=== PATIENT | female | born 1960 | race Caucasian/White ===

== ENCOUNTER → 2016-07-04 | Outpatient (CLI) | payer MEDICARE ==
[2016-07-04 20:58] LABS: INR 2.1 (<1.1); Prothrombin Time 20.4 sec (9.0-12.0)
[2016-07-05 01:40] LABS: Hemoglobin A1C 6.5 % (4.2-6.1)
== END | disposition home or self-care (01) ==
LOC: MMGSC 10:05
PROVIDERS: ATTEND Family Medicine
DX: E11.9 Type 2 diabetes mellitus without complications (principal); E87.6 Hypokalemia; Z79.01 Long term (current) use of anticoagulants
CPT/HCPCS: 36415; 83036; 84132; 85610

== ENCOUNTER → 2016-07-17 | Outpatient (CLI) | payer MEDICARE ==
[2016-07-17 18:36] LABS: INR 1.1 (<1.1); Prothrombin Time 11.1 sec (9.0-12.0)
== END | disposition home or self-care (01) ==
LOC: MMGSC 14:06
PROVIDERS: ATTEND Family Medicine
DX: Z79.01 Long term (current) use of anticoagulants (principal); Z51.81 Encounter for therapeutic drug level monitoring
CPT/HCPCS: 36415; 85610

== ENCOUNTER → 2016-08-02 | Outpatient (CLI) | payer MEDICARE ==
[2016-08-02 20:06] LABS: INR 1.3 (<1.1); Prothrombin Time 13.1 sec (9.0-12.0)
== END ==
LOC: MMGSC 10:34
PROVIDERS: ATTEND Family Medicine
DX: Z51.81 Encounter for therapeutic drug level monitoring (principal); Z79.01 Long term (current) use of anticoagulants
CPT/HCPCS: 36415; 85610

== ENCOUNTER → 2016-08-08 | Outpatient (CLI) | payer MEDICARE ==
[2016-08-08 20:49] LABS: INR 1.6 (<1.1); Prothrombin Time 15.1 sec (9.0-12.0)
== END | disposition home or self-care (01) ==
LOC: MMGSC 11:05
PROVIDERS: ATTEND Family Medicine
DX: Z79.01 Long term (current) use of anticoagulants (principal); Z51.81 Encounter for therapeutic drug level monitoring
CPT/HCPCS: 36415; 85610

== ENCOUNTER → 2016-08-15 | Outpatient (CLI) | payer MEDICARE ==
--- NOTE | 2016-08-21 08:33 | MM ---
Reason for exam: clinical finding. Last mammogram was performed 1 year and 9 months ago. History: Patient is postmenopausal. Lumpectomy of the right breast, 2016. Radiation therapy, 2016. Taking antineoplastic for 6 months. Indicated problem(s): pain in both breasts. Physical Findings: Nurse did not find any significant physical abnormalities on exam. MG 3D Diag Mammo W/Cad JAYESH Bilateral CC and MLO view(s) were taken. Prior study comparison: November 17, 2014, mammogram, performed at [facility]. There are scattered fibroglandular densities. New tiny oil cyst in the right breast at 2 o'clock. New tight group of calcifications 9-10 o'clock in the left breast warrant further evaluation. These results were verbally communicated with the patient on 08/21/16. ASSESSMENT: Incomplete: need additional imaging evaluation, BI-RAD 0 RECOMMENDATION: Special view mammogram of the left breast.
== END | disposition home or self-care (01) ==
LOC: RADMAMWWP 13:05
PROVIDERS: ATTEND Family Medicine
DX: N64.4 Mastodynia (principal); R92.2 Inconclusive mammogram
CPT/HCPCS: G0204; G0279

== ENCOUNTER 2016-08-17 16:52 | Inpatient (IN) | payer MEDICARE ==
[2016-08-17] MEDS ORDERED: SODIUM CHLORIDE 0.9% 1,000 ML IV STA (17:22)
[2016-08-17] MEDS ORDERED: ASPIRIN 81 MG CHEW PO STA (17:22)
[2016-08-17] MEDS ORDERED: MORPHINE SULFATE 4 MG/ML SYRINGE IV STA (17:22)
[2016-08-17] MEDS ORDERED: NITROGLYCERIN OINT 1 INCH/GM PACKET TOPICAL STA (17:22)
[2016-08-17] MEDS ORDERED: RX INFO: IV CONTRAST WAS GIVEN 1 EACH MISC MISCELLANE PRN (17:23)
[2016-08-17] MEDS ORDERED: LABETALOL 5 MG/ML VIAL MDV IVP STA (17:24)
[2016-08-17 17:38] LABS: Basophils % (A) 0 %; CH 31.1; CHCM 34.1; Eosinophils # (A) 0.1 k/uL (0-0.7); Eosinophils % (A) 2 %; HDW 2.85; HGB 14.4 gm/dL (11.4-16.0); Luc # (Auto) 0.06; Luc % (Auto) 1; Lymphocytes # (A) 0.4 k/uL (1.0-4.8); Lymphocytes % (A) 9 %; MCH 30.7 pg (25.0-35.0); MCHC 33.5 g/dL (31.0-37.0); MCV 91.6 fL (80.0-100.0); Mean Platelet Volume 6.5; Monocytes # (A) 0.3 k/uL (0-1.0); Monocytes % (A) 7 %; Neutrophils % (A) 81 %; RBC 4.69 m/uL (3.80-5.40); RDW 13.8 % (11.5-15.5)
[2016-08-17 17:52] LABS: ALT 80 U/L (9-52); AST 138 U/L (14-36); Alkaline Phosphatase 135 U/L (38-126); Anion Gap 7 mmol/L; Blood Urea Nitrogen 14 mg/dL (7-17); Calcium 9.5 mg/dL (8.4-10.2); Carbon Dioxide 27 mmol/L (22-30); Chloride 105 mmol/L (98-107); Glucose 118 mg/dL (74-99); Magnesium 1.8 mg/dL (1.6-2.3); Non-African American GFR(MDRD) >60 (>60 ml/min/1.73 sqM); Potassium 4.1 mmol/L (3.5-5.1); Sodium 139 mmol/L (137-145); Total Bilirubin 1.3 mg/dL (0.2-1.3); Total Protein 6.8 g/dL (6.3-8.2)
[2016-08-17 17:54] LABS: INR 1.9 (<1.1); Partial Thromboplastin Time 24.3 sec (22.0-30.0); Prothrombin Time 18.6 sec (9.0-12.0)
[2016-08-17 18:01] LABS: Creatine Kinase 191 U/L (30-135)
[2016-08-17 18:14] LABS: Creatine Kinase MB 2.1 ng/mL (0.0-2.4); Troponin I <0.012 ng/mL (0.000-0.034)
--- NOTE | 2016-08-17 18:33 | CT ---
EXAMINATION TYPE: CT angio chest DATE OF EXAM: 08/17/2016 6:26 PM COMPARISON: 02/10/2016 HISTORY: Pt states of chest pain and RENTERIA x2 days. CT DLP: 601.9 mGycm Automated exposure control for dose reduction was used. CONTRAST: CTA scan of the thorax is performed with IV Contrast, patient injected with 75 mL of Omnipaque 350, p ulmonary embolism protocol. There are 3-D post processed images.. FINDINGS: The lungs are clear of consolidation. There is no evidence of a pulmonary mass. There is no pleural e ffusion. There is no pericardial effusion. Heart appears enlarged. I see no filling defects in the pulmonary a rteries. There are no hilar masses. There is no mediastinal adenopathy. There is no evidence of aorti c aneurysm or dissection. IMPRESSION: NO EVIDENCE OF PULMONARY EMBOLISM. THERE IS CLEARING OF LEFT PLEURAL EFFUSION COMPARED TO LAST EXAM. CARDIOMEGALY.
[2016-08-17] MEDS ORDERED: HYDROmorphone 1 MG/ML 1 ML SYRINGE IVP STA (19:48)
--- NOTE | 2016-08-17 19:48 | ED ---
Chest Pain HPI - General Chief Complaint: Chest Pain Stated Complaint: Chest pain Time Seen by Provider: 08/17/16 17:14 Source: patient Mode of arrival: wheelchair Limitations: no limitations - History of Present Illness Initial Comments: This 55-year-old white female presents complaining of some chest pain. She describes as a bilateral chest pressure. The onset occurred approximately one week ago but it was worse since last night. It radiates down the left arm. There is a pleuritic component. She states that it seems to radiate to her head. She has had some shortness of breath but denies any cough or fever. It usually lasts several seconds to several minutes. She denies any leg pain or swelling. She does have a history of previous DVT and has factors 5 Leiden deficiency. She currently takes Coumadin for this. She does relate a headache for the last 3 weeks. She does have a history of pleurisy diagnosed in January 2016 and is probably has been intermittent. She denies any known history of coronary artery disease. She's never had a cardiac stent. She is unsure of her last stress test but it was remote. She does relate a history of liver cirrhosis but does not drink any alcohol and she is unsure why she has cirrhosis. No other complaints or modifying factors. - Related Data Home Medications Medication Instructions Recorded Confirmed Sertraline [Zoloft] 200 mg PO HS 03/07/15 08/17/16 Atorvastatin [Lipitor] 40 mg PO HS 02/10/16 08/17/16 Cranberry Extract [Cranberry] 500 mg PO DAILY PRN 02/10/16 08/17/16 HYDROcodone/APAP 7.5-325MG [[place] 1 tab PO QID PRN 02/10/16 08/17/16 7.5-325] Lisinopril 10 mg PO DAILY 02/10/16 08/17/16 Warfarin Sodium 9 mg PO DAILY@1800 02/10/16 08/17/16 Glimepiride [Amaryl] 2 mg PO BID 08/17/16 08/17/16 Levothyroxine Sodium [Synthroid] 137 mcg PO DAILY 08/17/16 08/17/16 Multivitamins, Thera [Multivitamin 1 tab PO DAILY 08/17/16 08/17/16 (formulary)] Phentermine HCl [Adipex-P] 37.5 mg PO QAM 08/17/16 08/17/16 Vitamin C/Biotin [Hair, Skin and 1 tab PO DAILY 08/17/16 08/17/16 Nails] Allergies Allergy/AdvReac Type Severity Reaction Status Date / Time No Known Allergies Allergy Verified 08/17/16 18:29 Review of Systems ROS Statement: Those systems with pertinent positive or pertinent negative responses have been documented in the HPI. ROS Other: All systems not noted in ROS Statement are negative. Past Medical History Past Medical History: Chest Pain / Angina, Diabetes Mellitus, Deep Vein Thrombosis (DVT), Hyperlipidemia, Hypertension, Sleep Apnea/CPAP/BIPAP Additional Past Medical History / Comment(s): Obesity, LLE DVT on coumadine since November 13 2015, varicose veins, hx cellulitis left leg, Left Lower extremity vascular intervention ? stent insertion/thrombolytics, hypertension, hyperlipidemia, DM and Factor V leiden (homozygous), hypothyroidism (post thyroidectomy for a massive goiter). History of Any Multi-Drug Resistant Organisms: None Reported Past Surgical History: Adenoidectomy, Appendectomy, Back Surgery, Cholecystectomy, Hysterectomy, Orthopedic Surgery, Tonsillectomy Additional Past Surgical History / Comment(s): carpal tunnel bilateral, thyroidectomy, ORIF rt ankle, stents in LLE/vascular stent Past Anesthesia/Blood Transfusion Reactions: Postoperative Nausea & Vomiting ( PONV) Additional Past Anesthesia/Blood Transfusion Reaction / Comment(s): blood transfusion(December 2015) Past Psychological History: Depression Smoking Status: Never smoker Past Alcohol Use History: Rare Past Drug Use History: None Reported - Past Family History Mother Family Medical History: Renal Disease (Mother at age of 59 from acute renal failure and she had a stroke) Father Family Medical History: Diabetes Mellitus (Father at age 71 from the hypertension diabetes and he had broken heart syndrome), Hypertension Brother(s) Family Medical History: Cancer Sister(s) Family Medical History: Diabetes Mellitus (Patient has 3 sisters 2 of them diabetic) Son(s) Family Medical History: No Reported History (Patient has 4 sons no major medical problems) Daughter(s) Family Medical History: Deep Vein Thrombosis (DVT) General Exam - General Exam Comments Initial Comments: GENERAL: The patient is well nourished and well hydrated. VITAL SIGNS: Heart rate, blood pressure, respiratory rate reviewed as recorded in nurse's notes. EYES: Pupils are round and reactive. Extraocular movements are intact. No conjunctival / lid redness or swelling. ENT: No external evidence of injury, swelling, or ecchymosis. Airway is patent. Throat is clear. NECK: Nontender. No swelling or evidence of injury. No subcutaneous emphysema. Trachea is midline. No thyroid mass. HEART: Regular rate and rhythm. Good peripheral pulses. LUNGS/CHEST: Breath sounds clear and equal bilaterally. No rales, rhonchi, or wheezes. No ecchymosis, subcutaneous emphysema, or tenderness. ABDOMEN: Abdomen soft without tenderness. No palpable masses or organomegaly. No peritoneal signs. No abdominal wall swelling or ecchymosis. EXTREMITIES: No extremity tenderness. Normal muscle tone and function. No thoracolumbar tenderness. NEUROLOGIC: Sensation is grossly intact. Cranial nerve exam reveals face is symmetrical, tongue is midline, speech is clear. SKIN: No abrasions or ecchymosis is noted. No induration or masses noted. PSYCHIATRIC: Alert and oriented. Appropriate behavior and judgment. Limitations: no limitations Course Vital Signs 08/17/16 08/17/16 08/17/16 16:55 17:43 18:00 Temperature 97.8 F Pulse Rate 90 93 Respiratory 20 14 Rate Blood Pressure 190/88 152/73 147/78 O2 Sat by Pulse 99 97 Oximetry Chest Pain [facility] The patient was seen and examined. All diagnostics were reviewed. EKG shows a normal sinus rhythm at a rate of 87. No acute ST-T wave changes are identified. The ID interval is 168, QS duration is 80, and QTC intervals 445. The patient had a computed tomography scan of the thorax which does not show any evidence of pulmonary embolism. It does show cardiomegaly and resolution of previous effusion. Her laboratory came back showing an INR at 1.9 and elevation of her liver function studies. Her d-dimer is negative. She receives aspirin nitroglycerin and morphine but states that morphine does not work well for her and is requesting additional pain medications but not morphine. The exact cause of her symptoms are not definitively determined. The possibility of acute coronary syndrome still is possible and it is felt as though she would require admission for further workup. Internal medicine has been paged and case will be discussed with them shortly. Disposition Clinical Impression: Chest pain, Diabetes, Dyspnea, Morbid obesity, Transaminitis, Cephalgia, Unstable angina pectoris Disposition: ADMITTED IP TO THIS HOSP Condition: Fair Time of Disposition: 19:52 Decision Date: 08/17/16 Decision Time: 19:52
[2016-08-17] MEDS ORDERED: NITROGLYCERIN SL TABS 0.4 MG TAB SUBLINGUAL PRN (19:54)
[2016-08-17] MEDS ORDERED: ACETAMINOPHEN TAB 325 MG TAB PO PRN (19:54)
[2016-08-17] MEDS ORDERED: NON-FORMULARY DRUG (Cranberry Extract [Cranberry] 500 MG) PO PRN (19:58)
[2016-08-17] MEDS ORDERED: ATORVASTATIN 40 MG TAB PO SCH (21:00)
[2016-08-17 21:27] VITALS: BMI 46.5
[2016-08-17] MEDS: ONDANSETRON 4 MG/2 ML VIAL IVP PRN (22:05)
[2016-08-17] MEDS: SERTRALINE 100 MG TAB PO SCH (22:07)
[2016-08-17] MEDS: GLIMEPIRIDE 2 MG TAB PO SCH (22:07)
[2016-08-17] MEDS: HYDROcodone/APAP 7.5-325MG 1 EACH TAB PO PRN (22:08)
[2016-08-17] MEDS: HYDROmorphone 1 MG/ML 1 ML SYRINGE IVP PRN (22:09)
[2016-08-17 23:40] LABS: Creatine Kinase 157 U/L (30-135)
[2016-08-17 23:53] LABS: Troponin I <0.012 ng/mL (0.000-0.034)
[2016-08-17] MEDS: NITROGLYCERIN OINT 1 INCH/GM PACKET TOPICAL SCH (23:58)
[2016-08-18] MEDS: HYDROmorphone 1 MG/ML 1 ML SYRINGE IVP PRN ×6 (03:08→23:40)
[2016-08-18] MEDS: NITROGLYCERIN OINT 1 INCH/GM PACKET TOPICAL SCH (05:32)
[2016-08-18] MEDS: LEVOTHYROXINE 137 MCG TAB PO SCH (05:33)
[2016-08-18] MEDS: HYDROcodone/APAP 7.5-325MG 1 EACH TAB PO PRN ×2 (05:34→20:38)
[2016-08-18] MEDS: ONDANSETRON 4 MG/2 ML VIAL IVP PRN ×3 (05:37→23:40)
[2016-08-18 06:14] LABS: Cholesterol 97 mg/dL (<200); HDL Cholesterol 66 mg/dL (40-60); Triglycerides 58 mg/dL (<150)
[2016-08-18 06:41] LABS: Creatine Kinase 157 U/L (30-135)
[2016-08-18 06:53] LABS: Troponin I <0.012 ng/mL (0.000-0.034)
[2016-08-18 07:03] LABS: Creatine Kinase MB 2.9 ng/mL (0.0-2.4)
[2016-08-18] MEDS ORDERED: NON-FORMULARY DRUG (Phentermine Hcl [Adipex-P] 37.5 MG) PO SCH (09:00)
[2016-08-18] MEDS ORDERED: NON-FORMULARY DRUG (Vitamin C/Biotin [Hair, Skin And Nails] 1 TAB) PO SCH (09:00)
[2016-08-18] MEDS ORDERED: SODIUM CHLORIDE 0.9% 1,000 ML IV SCH (10:00)
--- NOTE | 2016-08-18 10:51 | ECHOF ---
Referral Reason:cp MEASUREMENTS -------- HEIGHT: 165.1 cm WEIGHT: 126.6 kg BP: 122/72 RVIDd: 3.5 cm (< 3.3) IVSd: 1.0 cm (0.6 - 1.1) LVIDd: 5.7 cm (3.9 - 5.3) LVPWd: 0.8 cm (0.6 - 1.1) IVSs: 1.8 cm LVIDs: 3.3 cm LVPWs: 1.7 cm LA Diam: 3.6 cm (2.7 - 3.8) LAESV Index (A-L): 20.65 ml/m Ao Diam: 3.3 cm (2.0 - 3.7) AV Cusp: 2.1 cm (1.5 - 2.6) LA Diam: 2.8 cm (2.7 - 3.8) MV EXCURSION: 19.089 mm (> 18.000) MV EF SLOPE: 135 mm/s (70 - 150) EPSS: 0.4 cm MV E Joni: 0.87 m/s MV DecT: 218 ms MV A Joni: 1.05 m/s MV E/A Ratio: 0.83 RAP: 5.00 mmHg RVSP: 41.31 mmHg FINDINGS -------- Sinus rhythm. This was a technically good study. Left ventricular wall thickness is normal. Overall left ventricular systolic function is normal with, an EF between 55 - 60 %. The right ventricle is mildly enlarged. Normal LA size by volume 22+/-6 ml/m2. The right atrium is normal in size. Aortic valve is trileaflet and is mildly thickened. The mitral valve leaflets are mildly thickened. Mild mitral annular calcification present. There is trace to mild mitral regurgitation. Mild tricuspid regurgitation present. There is mild pulmonary hypertension. The right ventricular systolic pressure, as measured by Doppler, is 41.31mmHg. The aortic root size is normal. Normal inferior vena cava with normal inspiratory collapse consistent with estimated right atrial pressure of 5 mmHg. There is no pericardial effusion. CONCLUSIONS -------- 1. Sinus rhythm. 2. Mild mitral annular calcification present. 3. There is trace to mild mitral regurgitation. 4. Mild tricuspid regurgitation present. 5. There is mild pulmonary hypertension. 6. The right ventricular systolic pressure, as measured by Doppler, is 41.31mmHg. 7. The aortic root size is normal. 8. Normal inferior vena cava with normal inspiratory collapse consistent with estimated right atrial pressure of 5 mmHg. 9. There is no pericardial effusion. 10. This was a technically good study. 11. Left ventricular wall thickness is normal. 12. Overall left ventricular systolic function is normal with, an EF between 55 - 60 %. 13. The right ventricle is mildly enlarged. 14. Normal LA size by volume 22+/-6 ml/m2. 15. The right atrium is normal in size. 16. Aortic valve is trileaflet and is mildly thickened. 17. The mitral valve leaflets are mildly thickened. CHARITY FUNDRAISER: Alejandro Estrada RDCS
[2016-08-18] MEDS: ASPIRIN 325 MG TAB PO SCH (10:55)
[2016-08-18] MEDS: GLIMEPIRIDE 2 MG TAB PO SCH ×2 (10:55→17:26)
[2016-08-18] MEDS: LISINOPRIL 10 MG TAB PO SCH (10:55)
--- NOTE | 2016-08-18 11:39 | CONS ---
A 55-year-old lady with a known history of factor V Leiden, hypertension, hyperlipidemia, type 2 diabetes and also history of prior DVT and other surgeries. She has never smoked. She comes into the hospital with complaints of what she describes as a chest discomfort. The quality of pain is somewhat atypical. It started off at least 2 days ago. She had mostly what she described as a pain that gets worse when she takes a deep breath. Because of the pleuritic component, she also had a CAT scan done with contrast. There was no evidence of any pulmonary embolism. Her pain in the chest seems to have resolved almost completely and troponins are normal. However, she now has headache, which is a new problem and this seems to be more disturbing for her. Chest pain is pretty much gone, but she now seems to have more of a headache. Her blood pressure is under good control this morning. When she came in, systolic was 190, now it is 124/66. She is resting comfortably. Other than the headache, she seems to be doing just fine. She is hemodynamically stable and does not have any dizziness or lightheadedness. PAST MEDICAL HISTORY: 1. History of obesity. 2. Hypertension. 3. Hyperlipidemia. 4. Type 2 diabetes mellitus. 5. Sleep apnea syndrome, uses CPAP. 6. History of varicose veins in the past. 7. Cellulitis of the left leg, resolved. 8. Status post appendectomy, back surgery, cholecystectomy. 9. She has history of DVTs in the past and also some stents in her lower extremity. Details are unavailable. Medications at home include: 1. Lisinopril 10 mg daily. 2. Coumadin 9 mg daily with INR of 1.9. 3. Amaryl 2 mg b.i.d. 4. Levothyroxine 137 mcg daily. 5. Hydrocodone for pain. 6. Atorvastatin 40 mg daily and 7. Zoloft. ALLERGIES: No known drug allergies. On examination, blood pressure is 124/66, pulse rate is 70 per minute, regular. HEENT: Unremarkable. Fundus was not examined by me. Neck is supple. There is no JVD. I do not hear a carotid bruit. Heart reveals S1 and S2 heard normally without a rub, murmur or gallop. Lungs are clear. Abdomen is soft, nontender, distended. Lower extremities reveal diminished pulses. No edema. Central nervous system is normal. EKG revealed sinus mechanism. No acute changes. Laboratory data suggested normal troponins. No other significant abnormalities are noted on the laboratory data. INR is 1.9. IMPRESSION: 1. Atypical chest pain. 2. Headache of unclear etiology. 3. Obesity. 4. Type 2 diabetes mellitus. 5. History of factor V Leiden. The patient is on Coumadin. INR is 1.9. RECOMMENDATIONS: Troponin levels are normal. CT angiography was negative. I would have considered a stress test, but at this time she is complaining of headache and just feels, sick and we may be dealing with a flu-like illness. I am recommending some IV fluids. Will resume her oral intake, increase activity and see how she does. I will follow up with her as an outpatient and consider stress testing as an outpatient. At this time, no other intervention necessary. She had an echocardiogram that was performed as recently as January 2016 which revealed normal LV size and systolic function with mild concentric LVH and aortic sclerosis. There was no evidence of pulmonary hypertension. We will give some IV fluids and give some Dilaudid for headache and see how she does. Thank you very much for the consult.
[2016-08-18] MEDS: MULTIVITAMINS, THERA 1 EACH TAB PO SCH (11:42)
[2016-08-18 12:07] LABS: Glucose,Whole Blood 139 mg/dL (75-99)
[2016-08-18 12:32] LABS: Hemoglobin A1C 6.6 % (4.2-6.1)
[2016-08-18] MEDS: INSULIN LISPRO (humaLOG) 300 UNIT/3 ML VIAL SQ SCH ×3 (15:27→20:40)
--- NOTE | 2016-08-18 16:12 | P.HPIM ---
History of Present Illness H&P Date: 08/18/16 Chief Complaint: CHest pain This is a 55-year-old female one of Dr. Avila with a previous medical history significant for hypertension and hypertensive cardiovascular disease with left ventricular hypertrophy, hyperkalemia, diabetes mellitus type 2, osteoarthritis, obesity with obstructive sleep apnea, abdominal soft tissue skin abscess, left DVT and had 2 stents placed and bacteremia--treated at [facility] in4 November 2015 and started on Coumadin. Patient states that she was driving and developed chest pain in the midsternal area. She pulled off and ended up going to her daughter's house. She states it felt like something was sitting on her chest and she had sensation in her arms and fingers. Her daughter works at [employer] and convinced her to come into [facility] emergency center for evaluation. A Chin also relates that she has had decreased energy and feeling tired. She is complaining of a headache which she states started before the chest pain as all over her head on the right side most severely and goes to her neck. She states is not related to the nitroglycerin. She denies any arm or leg weakness. No dysphagia. She does states that when she ambulates she develops chest pain when she walks just from the bed to the bathroom. She does have tenderness over the midsternal area and also increased pain with deep inspiration. She states it feels like the pleurisy she had on her previous admission in January 2016. Echocardiogram from January 2016 revealed EF 55-60% with mild concentric left ventricular hypertrophy, mild aortic valve sclerosis without stenosis, mild mitral regurgitation, mild tricuspid regurgitation, mild pulmonary hypertension. Troponins have been negative on 3 draws. Triglycerides 58, cholesterol 97, LDL 19 and HDL 66. She does have elevated liver function tests of AST 138, ALT 80 and alkaline phosphatase 135 with no previous history of this. EKG does show Q waves. Patient was placed on the observation unit and seen by cardiology with recommendations for IV fluids and follow-up in 2-3 weeks for outpatient stress test. Patient has been given 2 doses of Dilaudid without improvement of her headache, ice pack is in place to her neck area and CAT scan of the brain, neurology consult ordered. Echocardiogram reveals EF of 55-60%, mild mitral regurgitation , mild tricuspid regurgitation, mild pulmonary hypertension. Review of Systems All systems: negative Constitutional: Reports fatigue, Reports weakness, Denies chills, Denies fever Eyes: denies blurred vision, denies pain Ears, nose, mouth and throat: Reports headache, Reports vertigo, Denies sore throat Cardiovascular: Reports chest pain, Denies shortness of breath, Denies syncope Respiratory: Denies cough Gastrointestinal: Denies abdominal pain, Denies diarrhea, Denies nausea, Denies vomiting Genitourinary: Denies dysuria, Denies hematuria Musculoskeletal: Denies myalgias Integumentary: Denies pruritus, Denies rash Neurological: Denies numbness, Denies weakness Psychiatric: Denies anxiety, Denies depression Endocrine: Denies fatigue, Denies weight change Past Medical History Past Medical History: Chest Pain / Angina, Diabetes Mellitus, Deep Vein Thrombosis (DVT), Hyperlipidemia, Hypertension, Sleep Apnea/CPAP/BIPAP Additional Past Medical History / Comment(s): Obesity, LLE DVT on coumadine since November 13 2015, varicose veins, hx cellulitis left leg, Left Lower extremity DVT with vascular intervention ? stent insertion/thrombolytics, hypertension, hyperlipidemia, DM and Factor V leiden (homozygous), hypothyroidism (post thyroidectomy for a massive goiter). History of Any Multi-Drug Resistant Organisms: None Reported Past Surgical History: Adenoidectomy, Appendectomy, Back Surgery, Cholecystectomy, Hysterectomy, Orthopedic Surgery, Tonsillectomy Additional Past Surgical History / Comment(s): carpal tunnel bilateral, thyroidectomy, ORIF rt ankle, stents in LLE/vascular stent Past Anesthesia/Blood Transfusion Reactions: Postoperative Nausea & Vomiting ( PONV) Additional Past Anesthesia/Blood Transfusion Reaction / Comment(s): blood transfusion(December 2015) Past Psychological History: Depression Smoking Status: Never smoker Past Alcohol Use History: None Reported, Rare Past Drug Use History: None Reported - Past Family History Mother Family Medical History: Renal Disease (Mother at age of 59 from acute renal failure and she had a stroke) Additional Family Medical History / Comment(s): Mother at age 59 from acute renal failure and she had a stroke. Father Family Medical History: Diabetes Mellitus (Father at age 71 from the hypertension diabetes and he had broken heart syndrome), Hypertension Additional Family Medical History / Comment(s): Father at age 71 from hypertension, diabetes and had a broken heart syndrome. Brother(s) Family Medical History: Cancer Sister(s) Family Medical History: Myocardial Infarction ([place]) Additional Family Medical History / Comment(s): Patient has 3 sisters and 2 of them are diabetic. Son(s) Family Medical History: No Reported History (Patient has 4 sons no major medical problems) Additional Family Medical History / Comment(s): Patient has 4 sons with no major medical problems. Daughter(s) Family Medical History: Deep Vein Thrombosis (DVT) Additional Family Medical History / Comment(s): Patient has a daughter with DVT. Medications and Allergies Home Medications Medication Instructions Recorded Confirmed Type Sertraline [Zoloft] 200 mg PO HS 03/07/15 08/17/16 History Atorvastatin [Lipitor] 40 mg PO HS 02/10/16 08/17/16 History Cranberry Extract [Cranberry] 500 mg PO DAILY PRN 02/10/16 08/17/16 History HYDROcodone/APAP 7.5-325MG [[place] 1 tab PO QID PRN 02/10/16 08/17/16 History 7.5-325] Lisinopril 10 mg PO DAILY 02/10/16 08/17/16 History Warfarin Sodium 9 mg PO DAILY@1800 02/10/16 08/17/16 History Glimepiride [Amaryl] 2 mg PO BID 08/17/16 08/17/16 History Levothyroxine Sodium [Synthroid] 137 mcg PO DAILY 08/17/16 08/17/16 History Multivitamins, Thera [Multivitamin 1 tab PO DAILY 08/17/16 08/17/16 History (formulary)] Vitamin C/Biotin [Hair, Skin and 1 tab PO DAILY 08/17/16 08/17/16 History Nails] Allergies Allergy/AdvReac Type Severity Reaction Status Date / Time No Known Allergies Allergy Verified 08/17/16 21:19 Physical Exam Vitals: Vital Signs Temp Pulse Pulse Pulse Resp BP BP 08/18/16 08:00 98.0 F 86 18 124/66 08/18/16 04:00 97.8 F 79 16 122/72 08/17/16 23:43 97.8 F 95 16 147/67 08/17/16 23:11 16 08/17/16 22:00 16 08/17/16 20:45 98.6 F 97 16 172/70 08/17/16 20:33 86 18 126/68 Pulse Ox 08/18/16 08:00 97 08/18/16 04:00 96 08/17/16 23:43 95 08/17/16 23:11 08/17/16 22:00 08/17/16 20:45 100 08/17/16 20:33 97 Intake and Output 08/17/16 08/18/16 08/18/16 22:59 06:59 14:59 Other: # Voids 1 1 Weight 127 kg Gen: This is a morbidly obese. 55-year-old female. She is sitting up in bed and appears to be in no acute respiratory distress. HEENT: Head is atraumatic, normocephalic. Pupils equal, round. Sclerae is anicteric. NECK: Supple. No JVD. No lymphadenopathy. No thyromegaly. LUNGS: Diminished bilaterally more so on the left. No wheezes or rhonchi. No intercostal retractions. HEART: Regular rate and rhythm. No murmur. Tenderness to the midsternal area. ABDOMEN: Morbidly obese. Soft. Bowel sounds are present. No masses. No tenderness. EXTREMITIES: No pedal edema. No calf tenderness. NEUROLOGICAL: Patient is awake, alert and oriented x3. Cranial nerves 2 through 12 are grossly intact. Results CBC & Chem 7: 08/17/16 17:22 08/17/16 17:22 Labs: Abnormal Lab Results - Last 24 Hours (Table) 08/17/16 08/18/16 08/18/16 Range/Units 22:52 05:16 05:16 Total Creatine Kinase 157 H 157 H (30-135) U/L CK-MB (CK-2) 2.9 H* (0.0-2.4) ng/mL HDL Cholesterol 66 H (40-60) mg/dL Thrombosis Risk Factor Assmnt - DVT/VTE Prophylaxis DVT/VTE Prophylaxis: Pharmacologic Prophylaxis ordered - Choose All That Apply Each Factor Represents 1 point: Age 41-60 years Each Risk Factor Represents 3 Points: History of DVT/PE Thrombosis Risk Factor Assessment Total Risk Factor Score: 4 Thrombosis Risk Factor Assessment Level: Moderate Risk Assessment and Plan Plan: 1. Chest pain with chest wall tenderness possibly related to pleurisy. Patient has been seen by cardiology with plan for outpatient stress test in 2-3 weeks. 2. Headache with radiation down the back of her head to her neck. CAT scan of the brain and consult with neurology. 3. Diabetes mellitus type 2. Continue glimepiride 2 mg twice daily and Humalog scale before meals and at bedtime. 3. Hypertension and hypertensive cardio vascular disease. Continue lisinopril 10 mg daily. 4. History of lower extremity DVT and had stent placement at [facility] with factor V deficiency currently on Coumadin. Continue Coumadin to maintain INR between 2 and 3. Recheck INR in the morning. 5. Hyperlipidemia. Continue Lipitor 40 mg at bedtime 6. Obesity with obstructive sleep apnea. Continue CPAP. 7. Depression recurrent. Continue Zoloft 200 mg at bedtime. 8. Overactive bladder. Continue oxybutynin 5 mg daily. 9. DVT prophylaxis. Patient is therapeutic on Coumadin. 10. Gastrointestinal prophylaxis. Continue Pepcid. 11. History of bacteremia while hospitalized at [facility] 2016. Patient placed on the observation unit. Discharge plan: Return home Impression and plan of care have been directed as dictated by the signing physician. Lou Orellana nurse practitioner acting as scribe for signing physician. CC: Dr. Jasso Time with Patient: Greater than 30
[2016-08-18] MEDS: SODIUM CHLORIDE 0.9% 1,000 ML IV SCH (16:15)
--- NOTE | 2016-08-18 16:55 | CT ---
EXAMINATION TYPE: CT brain wo con DATE OF EXAM: 08/18/2016 4:49 PM COMPARISON: NONE HISTORY: Headache, dizziness and nausea x [address] DLP: 1165.00 mGycm Automated exposure control for dose reduction was used. FINDINGS: Central structures are midline. There is no evidence of hydrocephalus. No acute focal lesion, mass ef fect or midline shift is seen. I do not see evidence of intracranial blood. Visualized portions of the paranasal sinuses and mastoids are clear. No depressed skull fracture is s een. IMPRESSION: NO ACUTE INTRACRANIAL ABNORMALITY.
[2016-08-18 17:06] LABS: Glucose,Whole Blood 106 mg/dL (75-99)
[2016-08-18] MEDS: WARFARIN 3 MG TAB PO SCH ×2 (17:25→20:39)
[2016-08-18 20:39] LABS: Glucose,Whole Blood 65 mg/dL (75-99)
[2016-08-18] MEDS: SERTRALINE 100 MG TAB PO SCH (20:40)
[2016-08-19] MEDS: HYDROmorphone 1 MG/ML 1 ML SYRINGE IVP PRN ×4 (02:31→20:29)
[2016-08-19] MEDS: ONDANSETRON 4 MG/2 ML VIAL IVP PRN (05:42)
[2016-08-19] MEDS: SODIUM CHLORIDE 0.9% 1,000 ML IV SCH (05:42)
[2016-08-19] MEDS: LEVOTHYROXINE 137 MCG TAB PO SCH (05:43)
[2016-08-19 06:42] LABS: Glucose,Whole Blood 119 mg/dL (75-99)
[2016-08-19] MEDS: ASPIRIN 325 MG TAB PO SCH (09:56)
[2016-08-19] MEDS: LISINOPRIL 10 MG TAB PO SCH (09:56)
[2016-08-19] MEDS: INSULIN LISPRO (humaLOG) 300 UNIT/3 ML VIAL SQ SCH ×4 (09:56→20:31)
[2016-08-19] MEDS: MULTIVITAMINS, THERA 1 EACH TAB PO SCH (09:56)
[2016-08-19] MEDS: GLIMEPIRIDE 2 MG TAB PO SCH ×2 (09:57→17:28)
[2016-08-19] MEDS ORDERED: GLIMEPIRIDE 1 MG TAB PO STA (11:02)
[2016-08-19 11:58] LABS: Glucose,Whole Blood 149 mg/dL (75-99)
[2016-08-19] MEDS: traMADol 50 MG TAB PO PRN (12:21)
[2016-08-19] MEDS: predniSONE 50 MG TAB PO SCH (12:24)
--- NOTE | 2016-08-19 13:34 | P.PN ---
Subjective This is a 55-year-old female one of Dr. Avila with a previous medical history significant for hypertension and hypertensive cardiovascular disease with left ventricular hypertrophy, hyperkalemia, diabetes mellitus type 2, osteoarthritis, obesity with obstructive sleep apnea, abdominal soft tissue skin abscess, left DVT and had 2 stents placed and bacteremia--treated at [facility] in4 November 2015 and started on Coumadin. Patient states that she was driving and developed chest pain in the midsternal area. She pulled off and ended up going to her daughter's house. She states it felt like something was sitting on her chest and she had sensation in her arms and fingers. Her daughter works at [employer] and convinced her to come into [facility] emergency center for evaluation. A Chin also relates that she has had decreased energy and feeling tired. She is complaining of a headache which she states started before the chest pain as all over her head on the right side most severely and goes to her neck. She states is not related to the nitroglycerin. She denies any arm or leg weakness. No dysphagia. She does states that when she ambulates she develops chest pain when she walks just from the bed to the bathroom. She does have tenderness over the midsternal area and also increased pain with deep inspiration. She states it feels like the pleurisy she had on her previous admission in January 2016. Echocardiogram from January 2016 revealed EF 55-60% with mild concentric left ventricular hypertrophy, mild aortic valve sclerosis without stenosis, mild mitral regurgitation, mild tricuspid regurgitation, mild pulmonary hypertension. Troponins have been negative on 3 draws. Triglycerides 58, cholesterol 97, LDL 19 and HDL 66. She does have elevated liver function tests of AST 138, ALT 80 and alkaline phosphatase 135 with no previous history of this. EKG does show Q waves. Patient was placed on the observation unit and seen by cardiology with recommendations for IV fluids and follow-up in 2-3 weeks for outpatient stress test. Patient has been given 2 doses of Dilaudid without improvement of her headache, ice pack is in place to her neck area and CAT scan of the brain, neurology consult ordered. Echocardiogram reveals EF of 55-60%, mild mitral regurgitation , mild tricuspid regurgitation, mild pulmonary hypertension. 08/19: Patient continues to complain of a throbbing headache on the right side of her head from the top and goes around the back and down her neck. She also complains of nausea and vomiting and blurred vision. She denies any history of migraine headaches. Patient is tender in the occipital region. Patient started on prednisone and glyburide has been increased. Consult with neurology is pending. CAT scan of the brain showed no acute findings. Objective - Vital Signs Vital signs: Vital Signs Temp 97.6 F 08/19/16 07:42 Pulse 78 08/19/16 07:42 Resp 16 08/19/16 07:42 BP 161/79 08/19/16 07:42 Pulse Ox 93 L 08/19/16 07:42 Intake & Output 08/18/16 08/19/16 08/19/16 18:59 06:59 18:59 Intake Total 540 236 Balance 540 236 Intake: Oral 540 236 Other: Voiding Method Toilet Toilet # Voids 1 - Exam Gen: This is a morbidly obese. 55-year-old female. She is sitting up in bed and appears to be in no acute respiratory distress. HEENT: Head is atraumatic, normocephalic. Pupils equal, round. Sclerae is anicteric. NECK: Supple. No JVD. No lymphadenopathy. No thyromegaly. LUNGS: Diminished bilaterally more so on the left. No wheezes or rhonchi. No intercostal retractions. HEART: Regular rate and rhythm. No murmur. Tenderness to the midsternal area. ABDOMEN: Morbidly obese. Soft. Bowel sounds are present. No masses. No tenderness. EXTREMITIES: No pedal edema. No calf tenderness. NEUROLOGICAL: Patient is awake, alert and oriented x3. Cranial nerves 2 through 12 are grossly intact. - Labs CBC & Chem 7: 08/17/16 17:22 08/17/16 17:22 Labs: Abnormal Lab Results - Last 24 Hours (Table) 08/18/16 08/18/16 08/18/16 Range/Units 05:16 12:05 17:02 POC Glucose (mg/dL) 139 H 106 H (75-99) mg/dL Hemoglobin A1c 6.6 H (4.2-6.1) % 08/18/16 08/19/16 Range/Units 20:38 06:39 POC Glucose (mg/dL) 65 L 119 H (75-99) mg/dL Hemoglobin A1c (4.2-6.1) % Assessment and Plan Plan: 1. Chest pain with chest wall tenderness possibly related to pleurisy. Patient has been seen by cardiology with plan for outpatient stress test in 2-3 weeks. 2. Headache with radiation down the back of her head to her neck most likely due to occipital neuralgia. CAT scan of the brain and consult with neurology. 3. Diabetes mellitus type 2. Continue glimepiride 2 mg twice daily and Humalog scale before meals and at bedtime. 3. Hypertension and hypertensive cardio vascular disease. Continue lisinopril 10 mg daily. 4. 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 Continue Coumadin to maintain INR between 2 and 3. Recheck INR in the morning. 5. Hyperlipidemia. Continue Lipitor 40 mg at bedtime 6. Obesity with obstructive sleep apnea. Continue CPAP. 7. Depression recurrent. Continue Zoloft 200 mg at bedtime. 8. Overactive bladder. Continue oxybutynin 5 mg daily. 9. DVT prophylaxis. Patient is therapeutic on Coumadin. 10. Gastrointestinal prophylaxis. Continue Pepcid. 11. History of bacteremia while hospitalized at [facility] 2016. Patient placed on the observation unit. Discharge plan: Return home Impression and plan of care have been directed as dictated by the signing physician. Lou Orellana nurse practitioner acting as scribe for signing physician. Time with Patient: Greater than 30
[2016-08-19 16:56] LABS: Glucose,Whole Blood 219 mg/dL (75-99)
[2016-08-19] MEDS: WARFARIN 3 MG TAB PO SCH (17:27)
--- NOTE | 2016-08-19 20:17 | P.CNNES ---
History of Present Illness Consult date: 08/19/16 Reason for Consult: Patient with headaches for the past 2 weeks and chest pain. 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 She went to visit her daughter who works at [employer] and apparently she complained of severe retrosternal chest pain and severe headache pain. His was about 1 PM yesterday evening. The daughter recommended she call EMS but the patient refused. Instead the patient decided to have her daughter take her to the emergency room which she did yesterday. She was brought into the ER on 08/17/2016 for further evaluation. She was seen in the ER by Dr. Delgadillo. She continued to have severe retrosternal chest pain. She also complained of left arm discomfort and there was concern whether she may have underlying coronary artery disease. Patient also complained of headaches for about 2 weeks but definitely worse in the last few days. Patient does have a history of clotting disorder. 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 She is currently taking Coumadin for treatment. She also has a history of pleurisy in the past which was diagnosed in January 2016. Patient states her chest pain seemed to be very similar to when she had pleurisy. She also has a 2 stents placed in the left leg for which she was treated at [facility]. Apparently she has been taking Coumadin and does have her INR checked weekly by her primary care physician. She is on 9 mg of Coumadin daily. The patient was sent for a computed tomography scan of the brain yesterday due to the headache symptoms. CAT scan is reported negative for any acute changes. No evidence of any hemorrhage. She states that most of her headache pain seems to emanate from the base of the neck and radiates down the neck and up into her temporal areas bilaterally. She does have a history of having undergone cervical spine fusion surgery in [place] in 2003. She has not had any recent difficulty with her neck other than some difficulty sleeping at night. She also has a history of obstructive sleep apnea for which she uses CPAP at night. The patient states that her headache is currently quite sharp in nature and mostly radiating from the back of the neck. She denies having any evidence of arthritis in the neck following her surgery in 2003. On examination the patient is noted to have significant trigger point tenderness in the suboccipital notch bilaterally. She rates the pain intensity is 10 over 10. She has not had any severe nausea vomiting symptoms. She has been taking Dilaudid for headache pain. Patient's clinical findings are very consistent with severe occipital neuritis. We recommend that she be evaluated by anesthesia for possible occipital nerve block procedure. We would also recommend a plain computed tomography scan of the neck for further evaluation as this has not been done previously. Patient has been seen by cardiology. She atypical chest pain. Her troponin levels are normal. CT angiogram was negative. She is recommended to consider having a stress test done in the outpatient setting. Neurology is now been consulted for further evaluation and recommendations. Review of Systems Constitutional: Denies chills, Denies fever Eyes: denies blurred vision, denies pain Ears, nose, mouth and throat: Denies headache, Denies sore throat Cardiovascular: Denies chest pain, Denies shortness of breath Respiratory: Denies cough Gastrointestinal: Denies abdominal pain, Denies diarrhea, Denies nausea, Denies vomiting Genitourinary: Denies dysuria, Denies hematuria Musculoskeletal: Denies myalgias Integumentary: Denies pruritus, Denies rash Neurological: Reports headaches, Reports tingling, Denies numbness, Denies weakness Psychiatric: Denies anxiety, Denies depression Endocrine: Denies fatigue, Denies weight change Past Medical History Past Medical History: Chest Pain / Angina, Diabetes Mellitus, Deep Vein Thrombosis (DVT), Hyperlipidemia, Hypertension, Sleep Apnea/CPAP/BIPAP Additional Past Medical History / Comment(s): Obesity, LLE DVT on coumadine since November 13 2015, varicose veins, hx cellulitis left leg, Left Lower extremity DVT with vascular intervention ? stent insertion/thrombolytics, hypertension, hyperlipidemia, DM and Factor V leiden (homozygous), hypothyroidism (post thyroidectomy for a massive goiter). History of Any Multi-Drug Resistant Organisms: None Reported Past Surgical History: Adenoidectomy, Appendectomy, Back Surgery, Cholecystectomy, Hysterectomy, Orthopedic Surgery, Tonsillectomy Additional Past Surgical History / Comment(s): carpal tunnel bilateral, thyroidectomy, ORIF rt ankle, stents in LLE/vascular stent Past Anesthesia/Blood Transfusion Reactions: Postoperative Nausea & Vomiting ( PONV) Additional Past Anesthesia/Blood Transfusion Reaction / Comment(s): blood transfusion(December 2015) Past Psychological History: Depression Smoking Status: Never smoker Past Alcohol Use History: None Reported, Rare Past Drug Use History: None Reported - Past Family History Mother Family Medical History: Renal Disease (Mother at age of 59 from acute renal failure and she had a stroke) Additional Family Medical History / Comment(s): Mother at age 59 from acute renal failure and she had a stroke. Father Family Medical History: Diabetes Mellitus (Father at age 71 from the hypertension diabetes and he had broken heart syndrome), Hypertension Additional Family Medical History / Comment(s): Father at age 71 from hypertension, diabetes and had a broken heart syndrome. Brother(s) Family Medical History: Cancer Sister(s) Family Medical History: Myocardial Infarction ([place]) Additional Family Medical History / Comment(s): Patient has 3 sisters and 2 of them are diabetic. Son(s) Family Medical History: No Reported History (Patient has 4 sons no major medical problems) Additional Family Medical History / Comment(s): Patient has 4 sons with no major medical problems. Daughter(s) Family Medical History: Deep Vein Thrombosis (DVT) Additional Family Medical History / Comment(s): Patient has a daughter with DVT. Medications and Allergies Home Medications Medication Instructions Recorded Confirmed Type Sertraline [Zoloft] 200 mg PO HS 03/07/15 08/17/16 History Atorvastatin [Lipitor] 40 mg PO HS 02/10/16 08/17/16 History Cranberry Extract [Cranberry] 500 mg PO DAILY PRN 02/10/16 08/17/16 History HYDROcodone/APAP 7.5-325MG [Rincon 1 tab PO QID PRN 02/10/16 08/17/16 History 7.5-325] Lisinopril 10 mg PO DAILY 02/10/16 08/17/16 History Warfarin Sodium 9 mg PO DAILY@1800 02/10/16 08/17/16 History Glimepiride [Amaryl] 2 mg PO BID 08/17/16 08/17/16 History Levothyroxine Sodium [Synthroid] 137 mcg PO DAILY 08/17/16 08/17/16 History Multivitamins, Thera [Multivitamin 1 tab PO DAILY 08/17/16 08/17/16 History (formulary)] Vitamin C/Biotin [Hair, Skin and 1 tab PO DAILY 08/17/16 08/17/16 History Nails] Allergies Allergy/AdvReac Type Severity Reaction Status Date / Time No Known Allergies Allergy Verified 08/17/16 21:19 Physical Examination - Vital Signs Vital Signs: Vital Signs Temp Pulse Resp BP BP Pulse Ox 08/19/16 11:46 98 F 72 16 124/60 94 L 08/19/16 07:42 97.6 F 78 16 161/79 93 L 08/19/16 04:00 98 F 79 16 118/64 94 L 08/19/16 00:00 97.8 F 85 16 113/58 92 L 08/18/16 20:00 16 08/18/16 19:32 98.2 F 94 16 169/78 94 L 08/18/16 16:00 98.3 F 91 16 140/65 96 Intake and Output 08/18/16 08/19/16 08/19/16 22:59 06:59 14:59 Intake Total 236 Balance 236 Intake: Oral 236 Other: Voiding Method Toilet Toilet Toilet # Voids 1 1 - Constitutional General appearance: average body habitus, cooperative - EENT EENT: PERRL, mucous membranes moist - Respiratory Respiratory: lungs clear, normal breath sounds - Cardiovascular Cardiovascular: regular rate, normal S1, normal S2 Extremities: no peripheral edema bilaterally - Gastrointestinal Gastrointestinal: normoactive bowel sounds - Integumentary Integumentary: normal - Neurologic Cranial nerve examination: PERRL, EOMI, VFF, V1/V2/V3 grossly intact, face symmetric, tongue midline, intact gag reflex, intact corneal reflex, normal palatal elevation Speech examination: intact Sensorimotor examination: intact Detailed motor examination: grossly full strength in all extremities Detailed sensory examination: intact Reflex and gait examination: intact Reflexes: 1+: ankle, bicep, knee, tricep - Musculoskeletal Musculoskeletal: no pain - Psychiatric Psychiatric: mood/affect appropriate, cooperative Results - Laboratory Findings CBC and BMP: 08/17/16 17:22 08/17/16 17:22 Abnormal Lab Findings: Abnormal Labs 08/17/16 08/18/16 08/18/16 22:52 05:16 05:16 POC Glucose (mg/dL) Hemoglobin A1c Total Creatine Kinase 157 H 157 H CK-MB (CK-2) 2.9 H* HDL Cholesterol 66 H 08/18/16 08/18/16 08/18/16 05:16 12:05 17:02 POC Glucose (mg/dL) 139 H 106 H Hemoglobin A1c 6.6 H Total Creatine Kinase CK-MB (CK-2) HDL Cholesterol 08/18/16 08/19/16 08/19/16 20:38 06:39 11:56 POC Glucose (mg/dL) 65 L 119 H 149 H Hemoglobin A1c Total Creatine Kinase CK-MB (CK-2) HDL Cholesterol Assessment and Plan (1) Occipital neuritis Status: Acute Code(s): M54.81 - OCCIPITAL NEURALGIA (2) Cephalgia Status: Acute Code(s): R51 - HEADACHE (3) Diabetes Status: Acute Code(s): E11.9 - TYPE 2 DIABETES MELLITUS WITHOUT COMPLICATIONS (4) Morbid obesity Status: Acute Code(s): E66.01 - MORBID (SEVERE) OBESITY DUE TO EXCESS CALORIES (5) History of fusion of cervical spine Status: Acute Code(s): Z98.1 - ARTHRODESIS STATUS Plan: This patient is a 55-year-old female who was admitted to hospital with severe chest pain and headache pain. Headaches have been present for over 2 weeks. They got excessively uncontrollable a few days ago when she was visiting with her daughter. She was brought in to the emergency room and was evaluated in the ER on 08/17/[address] Delgadillo. She underwent a computed tomography scan of the brain on 08/18/2016 which was normal with no evidence of any acute changes. Patient has a complex past medical history including history of factor V Leyden deficiency and DVTs. She is currently on Coumadin therapy. She was admitted for atypical chest pain and has been seen by cardiology. Her neurological exam findings are consistent with severe bilateral occipital neuritis. We have recommended she be evaluated by anesthesia for possible bilateral occipital nerve block procedure. We would also recommend a computed tomography scan of the cervical spine for further evaluation. Patient is encouraged to apply moist heat to the head and neck region daily. Her symptoms may have been aggravated by her improper sleep pattern at night. She has been using various pillows due to neck discomfort. Patient has been started on low- dose steroid which may or may not show much improvement with the patient. We will await to see the recommendations from anesthesia regarding occipital nerve block procedure. Her overall prognosis at this time remains guarded. Case was discussed at length with the patient. All of her questions were answered. She is aware of her current neurological status and condition. We will continue to monitor progress closely during this admission. Time with Patient: Greater than 30
[2016-08-19 20:19] LABS: Glucose,Whole Blood 291 mg/dL (75-99)
[2016-08-19] MEDS: SERTRALINE 100 MG TAB PO SCH (20:28)
[2016-08-19] MEDS: HYDROcodone/APAP 7.5-325MG 1 EACH TAB PO PRN (20:28)
[2016-08-20 01:29] VITALS: RESP 16
[2016-08-20] MEDS: LEVOTHYROXINE 137 MCG TAB PO SCH (06:21)
[2016-08-20 06:49] LABS: Glucose,Whole Blood 64 mg/dL (75-99)
[2016-08-20] MEDS: GLIMEPIRIDE 1 MG TAB PO SCH (07:55)
[2016-08-20] MEDS: INSULIN LISPRO (humaLOG) 300 UNIT/3 ML VIAL SQ SCH ×4 (07:56→20:52)
[2016-08-20] MEDS: MULTIVITAMINS, THERA 1 EACH TAB PO SCH (07:57)
[2016-08-20] MEDS: ASPIRIN 325 MG TAB PO SCH (07:57)
[2016-08-20] MEDS: predniSONE 50 MG TAB PO SCH (07:57)
[2016-08-20] MEDS: LISINOPRIL 10 MG TAB PO SCH (07:57)
[2016-08-20 08:24] LABS: Glucose,Whole Blood 176 mg/dL (75-99)
--- NOTE | 2016-08-20 10:10 | CT ---
EXAMINATION TYPE: CT cervical spine wo con DATE OF EXAM: 08/20/2016 9:08 AM COMPARISON: NONE HISTORY: 55-year-old female with neck pain with history of cervical fusion in 2004 TECHNIQUE: Contiguous axial scanning of the cervical spine without IV contrast. Coronal and sagittal reconstructions performed. CT DLP: 952.30 mGycm Automated exposure control for dose reduction was used. FINDINGS: There are postsurgical changes of C5-C7 ACDF with successful interbody bony ankylosis. Reversal of the normal cervical lordosis in the superior cervical spine. Moderate disc/endplate degen erative change at C3-C4 with disc osteophyte complex that likely contributes to a mild to moderate sp inal canal stenosis. Scattered [id number] facet and uncovertebral joint arthropathy is also present. At C3-C4, this results in mild left neuroforaminal stenosis. Otherwise, no significant foraminal comp romise. No acute fracture of the cervical spine. Alignment is maintained. No craniocervical junction abnormality, predental space widening, or prevertebral soft tissue swellin g. IMPRESSION: 1. UNCOMPLICATED C5-C7 ACDF. 2. REVERSAL OF THE UPPER CERVICAL LORDOSIS COULD BE POSITIONAL OR DUE TO MUSCLE SPASM. 3. THERE IS MODERATE DISC/ENDPLATE DEGENERATIVE CHANGE AT C3-C4 WITH MILD OR MODERATE SPINAL CANAL ST ENOSIS AT THIS LEVEL. 4. WITH SOME FACET AND UNCOVERTEBRAL JOINT ARTHROPATHY, THERE IS ALSO MILD LEFT NEUROFORAMINAL STENOS IS HERE.
[2016-08-20 11:53] LABS: INR 1.6 (<1.1); Prothrombin Time 15.4 sec (9.0-12.0)
[2016-08-20 11:56] LABS: Glucose,Whole Blood 154 mg/dL (75-99)
--- NOTE | 2016-08-20 12:20 | P.PN ---
Subjective This is a 55-year-old female one of Dr. Avila with a previous medical history significant for hypertension and hypertensive cardiovascular disease with left ventricular hypertrophy, hyperkalemia, diabetes mellitus type 2, osteoarthritis, obesity with obstructive sleep apnea, abdominal soft tissue skin abscess, left DVT and had 2 stents placed and bacteremia--treated at [facility] in4 November 2015 and started on Coumadin. Patient states that she was driving and developed chest pain in the midsternal area. She pulled off and ended up going to her daughter's house. She states it felt like something was sitting on her chest and she had sensation in her arms and fingers. Her daughter works at [employer] and convinced her to come into [facility] emergency center for evaluation. A Chin also relates that she has had decreased energy and feeling tired. She is complaining of a headache which she states started before the chest pain as all over her head on the right side most severely and goes to her neck. She states is not related to the nitroglycerin. She denies any arm or leg weakness. No dysphagia. She does states that when she ambulates she develops chest pain when she walks just from the bed to the bathroom. She does have tenderness over the midsternal area and also increased pain with deep inspiration. She states it feels like the pleurisy she had on her previous admission in January 2016. Echocardiogram from January 2016 revealed EF 55-60% with mild concentric left ventricular hypertrophy, mild aortic valve sclerosis without stenosis, mild mitral regurgitation, mild tricuspid regurgitation, mild pulmonary hypertension. Troponins have been negative on 3 draws. Triglycerides 58, cholesterol 97, LDL 19 and HDL 66. She does have elevated liver function tests of AST 138, ALT 80 and alkaline phosphatase 135 with no previous history of this. EKG does show Q waves. Patient was placed on the observation unit and seen by cardiology with recommendations for IV fluids and follow-up in 2-3 weeks for outpatient stress test. Patient has been given 2 doses of Dilaudid without improvement of her headache, ice pack is in place to her neck area and CAT scan of the brain, neurology consult ordered. Echocardiogram reveals EF of 55-60%, mild mitral regurgitation , mild tricuspid regurgitation, mild pulmonary hypertension. 08/19: Patient continues to complain of a throbbing headache on the right side of her head from the top and goes around the back and down her neck. She also complains of nausea and vomiting and blurred vision. She denies any history of migraine headaches. Patient is tender in the occipital region. Patient started on prednisone and glyburide has been increased. Consult with neurology is pending. CAT scan of the brain showed no acute findings. 08/20: Patient has been evaluated by Dr. Mejia with recommendations for occipital nerve block. Pain management has been consult it and will see the patient on Sunday. Aspirin and Coumadin placed on hold. INR 1.6. Repeat INR ordered for tomorrow. Objective - Vital Signs Vital signs: Vital Signs Temp 98 F 08/20/16 07:58 Pulse 56 L 08/20/16 07:58 Resp 16 08/20/16 07:58 BP 140/67 08/20/16 07:59 Pulse Ox 97 08/20/16 07:58 Intake & Output 08/19/16 08/20/16 08/20/16 18:59 06:59 18:59 Intake Total 236 Balance 236 Intake: Oral 236 Other: Voiding Method Toilet Toilet Toilet # Voids 1 - Exam Gen: This is a morbidly obese. 55-year-old female. She is sitting up in bed and appears to be in no acute respiratory distress. HEENT: Head is atraumatic, normocephalic. Pupils equal, round. Sclerae is anicteric. NECK: Supple. No JVD. No lymphadenopathy. No thyromegaly. LUNGS: Diminished bilaterally more so on the left. No wheezes or rhonchi. No intercostal retractions. HEART: Regular rate and rhythm. No murmur. Tenderness to the midsternal area. ABDOMEN: Morbidly obese. Soft. Bowel sounds are present. No masses. No tenderness. EXTREMITIES: No pedal edema. No calf tenderness. NEUROLOGICAL: Patient is awake, alert and oriented x3. Cranial nerves 2 through 12 are grossly intact. - Labs CBC & Chem 7: 08/17/16 17:22 08/17/16 17:22 Labs: Abnormal Lab Results - Last 24 Hours (Table) 08/19/16 08/19/16 08/19/16 Range/Units 11:56 16:50 20:16 POC Glucose (mg/dL) 149 H 219 H 291 H (75-99) mg/dL 08/20/16 08/20/16 Range/Units 06:41 08:21 POC Glucose (mg/dL) 64 L 176 H (75-99) mg/dL Assessment and Plan Plan: 1. Chest pain with chest wall tenderness possibly related to pleurisy. Patient has been seen by cardiology with plan for outpatient stress test in 2-3 weeks. 2. Headache with radiation down the back of her head to her neck most likely due to occipital neuralgia. CAT scan of the brain above and consult with neurology. Pain management consult for occipital nerve block 3. Diabetes mellitus type 2. Continue glimepiride 2 mg twice daily and Humalog scale before meals and at bedtime. 3. Hypertension and hypertensive cardio vascular disease. Continue lisinopril 10 mg daily. 4. History of lower extremity DVT and had stent placement at 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 Continue Coumadin to maintain INR between 2 and 3. Recheck INR in the morning. 5. Hyperlipidemia. Continue Lipitor 40 mg at bedtime 6. Obesity with obstructive sleep apnea. Continue CPAP. 7. Depression recurrent. Continue Zoloft 200 mg at bedtime. 8. Overactive bladder. Continue oxybutynin 5 mg daily. 9. DVT prophylaxis. Patient is therapeutic on Coumadin. 10. Gastrointestinal prophylaxis. Continue Pepcid. 11. History of bacteremia while hospitalized at [facility] 2016. Patient placed on the observation unit. Discharge plan: Return home Impression and plan of care have been directed as dictated by the signing physician. Lou Orellana nurse practitioner acting as scribe for signing physician. Time with Patient: Greater than 30
[2016-08-20] MEDS: HYDROmorphone 1 MG/ML 1 ML SYRINGE IVP PRN (14:37)
[2016-08-20 17:05] LABS: Glucose,Whole Blood 248 mg/dL (75-99)
[2016-08-20] MEDS: GLIMEPIRIDE 2 MG TAB PO SCH (17:08)
[2016-08-20] MEDS: HYDROcodone/APAP 7.5-325MG 1 EACH TAB PO PRN ×2 (17:08→22:18)
[2016-08-20 20:19] LABS: Glucose,Whole Blood 219 mg/dL (75-99)
[2016-08-20] MEDS: SERTRALINE 100 MG TAB PO SCH (20:51)
--- NOTE | 2016-08-20 21:41 | P.PN ---
Subjective This patient is a 55-year-old female who was seen in neurology consultation yesterday for recurrent and severe headache pain. Patient has a history of having undergone cervical fusion in the past. She was seen in neurology consultation yesterday and was found to have evidence of bilateral occipital neuritis. We have recommended a occipital nerve block procedure for further management and treatment of her severe occipital pain. She was sent for computed tomography scan of the cervical spine today which reveals uncomplicated C5-C7 cervical fusion with ACDF in place and intact. Degenerative changes were noted at C3-C4 level. No evidence of any cord compression. Patient's Coumadin and aspirin were placed on hold in anticipation for possible occipital nerve block procedure to be done tomorrow by anesthesia. We will await their further recommendations and treatment. Patient continues to have significant suboccipital pain bilaterally. Patient had a bout of severe chest pain which was felt to be secondary to possible pleurisy. She has had pleurisy in the past. We will continue close neurological follow-up with this patient during this admission. Objective - Vital Signs Vital signs: Vital Signs Temp 97.9 F 08/20/16 11:31 Pulse 57 L 08/20/16 11:31 Resp 16 08/20/16 16:43 BP 169/89 08/20/16 11:31 Pulse Ox 97 08/20/16 11:31 Intake & Output 08/20/16 08/20/16 08/21/16 06:59 18:59 06:59 Intake Total 500 Balance 500 Intake: Oral 500 Other: Voiding Method Toilet - Exam Physical examination: PHYSICAL EXAMINATION: Patient is resting comfortably in bed. VITAL SIGNS: Blood pressure is [169/89]. Heart rate is [57]. Respiration is [16] . Temperature is [97.1]. HEENT: Head is atraumatic, neck is supple, there were no carotid bruits. CHEST: Lungs are clear to auscultation and percussion. CARDIAC: S1, S2 normal rate and rhythm. There is no murmur. ABDOMEN: Soft and nontender. Bowel sounds are present. EXTREMITIES: There is no pedal edema. Peripheral pulses are present. Neurological examination: Patient's neurological examination is unchanged from yesterday. - Labs CBC & Chem 7: 08/17/16 17:22 08/17/16 17:22 Labs: Abnormal Lab Results - Last 24 Hours (Table) 08/20/16 08/20/16 08/20/16 Range/Units 11:18 11:49 17:02 PT 15.4 H (9.0-12.0) sec POC Glucose (mg/dL) 154 H 248 H (75-99) mg/dL Assessment and Plan (1) Occipital neuritis Status: Acute Code(s): M54.81 - OCCIPITAL NEURALGIA (2) Cephalgia Status: Acute Code(s): R51 - HEADACHE (3) Diabetes Status: Acute Code(s): E11.9 - TYPE 2 DIABETES MELLITUS WITHOUT COMPLICATIONS (4) Morbid obesity Status: Acute Code(s): E66.01 - MORBID (SEVERE) OBESITY DUE TO EXCESS CALORIES (5) History of fusion of cervical spine Status: Acute Code(s): Z98.1 - ARTHRODESIS STATUS Plan: This patient is a 55-year-old female who was seen in neurology consultation yesterday for severe headache pain. She has evidence of bilateral occipital neuritis. We have recommended that she be seen by anesthesia for bilateral occipital nerve block procedure. She is to be evaluated by anesthesia tomorrow. She has been taken off of Coumadin and aspirin in anticipation for possible occipital nerve block procedure to be done. We will await further recommendations from anesthesia. Overall she otherwise seems to be doing well. She continues to have mostly suboccipital headache pain. She is still very sensitive to palpation over the suboccipital notch bilaterally. We will continue to monitor progress very closely and will await further recommendations from anesthesia regarding treatment for her occipital neuralgia symptoms. Case was discussed at length today with the patient. She is aware of our recommendations. Overall prognosis at this time remains guarded
[2016-08-21] MEDS: LEVOTHYROXINE 137 MCG TAB PO SCH (05:59)
[2016-08-21 07:32] LABS: Glucose,Whole Blood 60 mg/dL (75-99)
[2016-08-21] MEDS: HYDROcodone/APAP 7.5-325MG 1 EACH TAB PO PRN (07:37)
[2016-08-21] MEDS: INSULIN LISPRO (humaLOG) 300 UNIT/3 ML VIAL SQ SCH ×2 (07:40→13:42)
[2016-08-21 07:42] LABS: INR 1.5 (<1.1); Prothrombin Time 14.9 sec (9.0-12.0)
[2016-08-21 07:53] LABS: Glucose,Whole Blood 97 mg/dL (75-99)
[2016-08-21] MEDS: LISINOPRIL 10 MG TAB PO SCH (10:40)
[2016-08-21] MEDS: traMADol 50 MG TAB PO PRN (10:40)
[2016-08-21] MEDS ORDERED: fentaNYL (PF) 50 MCG/ML 2 ML AMP IV ONE (12:10)
[2016-08-21] MEDS ORDERED: MIDAZOLAM 2 MG/2 ML VIAL IV ONE (12:10)
[2016-08-21] MEDS ORDERED: BUPIVACAINE (PF) 0.5% 30 ML VIAL MISCELLANE ONE (12:10)
[2016-08-21] MEDS ORDERED: TRIAMCINOLONE ACETONIDE 40 MG/ML 1 ML VIAL INTRAARTIC ONE (12:10)
[2016-08-21] MEDS ORDERED: LACTATED RINGERS 1,000 ML IV ONE (12:24)
--- NOTE | 2016-08-21 12:48 | P.PCN ---
Date of Procedure: 08/21/16 Procedure(s) Performed: Pre-operative diagnosis: 1- Bilateral occipital neuralgia. 2-cervicogenic headache. 3-cervical degenerative disc disease. 4-cervical spondylosis with cervical facet arthropathy without myelopathy. Post Operative Diagnosis Same as preoperative diagnoses Procedure: 1- Bilateral occipital nerve block ANESTHESIA: Conscious sedation with Versed 2 mg and fentanyl 100 micrograms EBL: Minimal PROCEDURE INDICATION: The patient with neck pain and headache secondary to occipital neuralgea unresponsive to conservative treatments. PROCEDURE DESCRIPTION / TECHNIQUE: The patient was seen and identified in the preoperative area. Risks, benefits, complications, and alternatives were discussed with the patient, the patient agreed to proceed with the procedure and signed the consent. IV was started. Vital signs remained stable throughout the procedure. Patient was taken to the OR and time out was completed. The patient was placed in the sitting position on the procedure table. A pillow was placed under the patients chest to increase the cervical interlaminar space. The cervical area and right occiptial area were prepped with alcohol swab. Critical pause was taken. Vital signs were closely monitored during the procedure. Conscious sedation was used during the procedure to decrease patients anxiety. The right occiptal ridge was palpated and was then accessed with a 25 G needle. Then after negative aspiration, 6 ml of the block solution containing 6 ml of PF Buvicaine 0.5% and Kenalog 20 mg was injected. Needle was withdrawn intact. Then the same procedure was repeated on the left side and related the left occipital nerve block, after negative aspiration 6 mL of the block solution containing ropivacaine 0.5% and 40 mg of Kenalog injected after negative aspiration Patient tolerated procedure well. No acute complications.
[2016-08-21 13:01] LABS: Glucose,Whole Blood 69 mg/dL (75-99)
[2016-08-21 13:02] VITALS: BP 145/70; PULSE 60; TEMP 98
--- NOTE | 2016-08-21 13:36 | P.DS ---
Providers Date of admission: 08/17/16 19:52 Expected date of discharge: 08/21/16 Attending physician: Jarvis Renteria Consults: 08/17/16 19:54 Consult Physician Urgent Consulting Provider: Jennifer Martin Consult Reason/Comments: cp Do you want consulting provider notified?: Yes 08/18/16 11:22 Consult Physician Routine Consulting Provider: Jah Walker Consult Reason/Comments: RENTERIA Do you want consulting provider notified?: Yes [facility] Course: This is a 55-year-old female one of Dr. Avila with a previous medical history significant for hypertension and hypertensive cardiovascular disease with left ventricular hypertrophy, hyperkalemia, diabetes mellitus type 2, osteoarthritis, obesity with obstructive sleep apnea, abdominal soft tissue skin abscess, left DVT and had 2 stents placed and bacteremia--treated at [facility] in4 November 2015 and started on Coumadin. Patient states that she was driving and developed chest pain in the midsternal area. She pulled off and ended up going to her daughter's house. She states it felt like something was sitting on her chest and she had sensation in her arms and fingers. Her daughter works at [employer] and convinced her to come into [facility] emergency center for evaluation. A Chin also relates that she has had decreased energy and feeling tired. She is complaining of a headache which she states started before the chest pain as all over her head on the right side most severely and goes to her neck. She states is not related to the nitroglycerin. She denies any arm or leg weakness. No dysphagia. She does states that when she ambulates she develops chest pain when she walks just from the bed to the bathroom. She does have tenderness over the midsternal area and also increased pain with deep inspiration. She states it feels like the pleurisy she had on her previous admission in January 2016. Echocardiogram from January 2016 revealed EF 55-60% with mild concentric left ventricular hypertrophy, mild aortic valve sclerosis without stenosis, mild mitral regurgitation, mild tricuspid regurgitation, mild pulmonary hypertension. Troponins have been negative on 3 draws. Triglycerides 58, cholesterol 97, LDL 19 and HDL 66. She does have elevated liver function tests of AST 138, ALT 80 and alkaline phosphatase 135 with no previous history of this. EKG does show Q waves. Patient was placed on the observation unit and seen by cardiology with recommendations for IV fluids and follow-up in 2-3 weeks for outpatient stress test. Patient has been given 2 doses of Dilaudid without improvement of her headache, ice pack is in place to her neck area and CAT scan of the brain, neurology consult ordered. Echocardiogram reveals EF of 55-60%, mild mitral regurgitation , mild tricuspid regurgitation, mild pulmonary hypertension. 08/19: Patient continues to complain of a throbbing headache on the right side of her head from the top and goes around the back and down her neck. She also complains of nausea and vomiting and blurred vision. She denies any history of migraine headaches. Patient is tender in the occipital region. Patient started on prednisone and glyburide has been increased. Consult with neurology is pending. CAT scan of the brain showed no acute findings. 08/20: Patient has been evaluated by Dr. Mejia with recommendations for occipital nerve block. Pain management has been consult it and will see the patient on Sunday. Aspirin and Coumadin placed on hold. INR 1.6. Repeat INR ordered for tomorrow. 08/21: Cervical spine CAT scan shows uncomplicated C5-C7 ACDF. Reversal of the upper cervical lordosis could be positional or due to muscle spasm. Moderate disc/endplate degenerative changes at C3-C4 with mild or moderate spinal canal stenosis at this level. Some facet and uncovertebral joint arthropathy and mild left neural foraminal stenosis. INR is 1.5. Blood sugars are improved now off steroids. Patient has undergone occipital nerve block with anesthesia and feels significant improvement. Patient will be discharged home in stable condition. She has been provided a prescription for [place] 7.5 #40. Discharge Diagnoses: 1. Chest pain with chest wall tenderness possibly related to pleurisy. 2. Headache with radiation down the back of her head to her neck. 3. Diabetes mellitus type 2. 3. Hypertension and hypertensive cardio vascular disease. 4. 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 5. Hyperlipidemia. 6. Obesity with obstructive sleep apnea. 7. Depression recurrent. 8. Overactive bladder. 9. History of bacteremia while hospitalized at [facility] 2016. Patient placed on the observation unit. Discharge plan: Return home Impression and plan of care have been directed as dictated by the signing physician. Lou Orellana nurse practitioner acting as scribe for signing physician. CC: Dr. Jasso Patient Condition at Discharge: Good Plan - Discharge Summary New Discharge Prescriptions: HYDROcodone/APAP 7.5-325MG [[place] 7.5-325] 1 tab PO Q4H PRN #40 tab PRN Reason: Pain Discharge Medication List Sertraline [Zoloft] 200 mg PO HS 03/07/15 [History] Atorvastatin [Lipitor] 40 mg PO HS 02/10/16 [History] Cranberry Extract [Cranberry] 500 mg PO DAILY PRN 02/10/16 [History] HYDROcodone/APAP 7.5-325MG [[place] 7.5-325] 1 tab PO QID PRN 02/10/16 [History] Lisinopril 10 mg PO DAILY 02/10/16 [History] Warfarin Sodium 9 mg PO DAILY@1800 02/10/16 [History] Glimepiride [Amaryl] 2 mg PO BID 08/17/16 [History] Levothyroxine Sodium [Synthroid] 137 mcg PO DAILY 08/17/16 [History] Multivitamins, Thera [Multivitamin (formulary)] 1 tab PO DAILY 08/17/16 [History ] Vitamin C/Biotin [Hair, Skin and Nails] 1 tab PO DAILY 08/17/16 [History] HYDROcodone/APAP 7.5-325MG [[place] 7.5-325] 1 tab PO Q4H PRN #40 tab 08/21/16 [Rx ] Follow up Appointment(s)/Referral(s): Ritchie Lazcano MD [STAFF PHYSICIAN] - 08/30/16 1:45 pm Obdulia Jasso MD [Primary Care Provider] - 1 Week Discharge Disposition: HOME SELF-CARE
[2016-08-21] MEDS: GLIMEPIRIDE 1 MG TAB PO SCH (13:41)
[2016-08-21] MEDS: MULTIVITAMINS, THERA 1 EACH TAB PO SCH (13:42)
== END 2016-08-21 16:45 | disposition home or self-care (01) | DRG 552 ==
LOC: EC 16:52 → 3OBS 19:52 → OBSVTOIN 08-20 11:04 → 5ONC 08-20 14:00
PROVIDERS: ADMIT Internal Medicine; ATTEND Internal Medicine
PROC: 3E0T33Z Introduction of Anti-inflammatory into Peripheral Nerves and Plexi, Percutaneous Approach (ICD-10-PCS; 2016-08-21)
PROC: 3E0T3BZ Introduction of Anesthetic Agent into Peripheral Nerves and Plexi, Percutaneous Approach (ICD-10-PCS; principal; 2016-08-21 12:01)
DX: M54.81 Occipital neuralgia (principal); D68.51 Activated protein C resistance; D68.2 Hereditary deficiency of other clotting factors; F33.9 Major depressive disorder, recurrent, unspecified; I27.2 Other secondary pulmonary hypertension; Z68.42 Body mass index [BMI] 45.0-49.9, adult; I11.9 Hypertensive heart disease without heart failure; G47.33 Obstructive sleep apnea (adult) (pediatric); E66.01 Morbid (severe) obesity due to excess calories; N32.81 Overactive bladder; E11.9 Type 2 diabetes mellitus without complications; M50.31 Other cervical disc degeneration, high cervical region; M47.812 Spondylosis without myelopathy or radiculopathy, cervical region; M46.92 Unspecified inflammatory spondylopathy, cervical region; E78.5 Hyperlipidemia, unspecified; E89.0 Postprocedural hypothyroidism; M48.02 Spinal stenosis, cervical region; R09.1 Pleurisy; I08.3 Combined rheumatic disorders of mitral, aortic and tricuspid valves; R06.02 Shortness of breath; M19.90 Unspecified osteoarthritis, unspecified site; I83.90 Asymptomatic varicose veins of unspecified lower extremity; H53.8 Other visual disturbances; R74.0 Nonspecific elevation of levels of transaminase and lactic acid dehydrogenase [LDH]; R06.00 Dyspnea, unspecified; R11.2 Nausea with vomiting, unspecified; R53.1 Weakness; Z87.81 Personal history of (healed) traumatic fracture; Z79.01 Long term (current) use of anticoagulants; Z79.899 Other long term (current) drug therapy; Z79.84 Long term (current) use of oral hypoglycemic drugs; Z83.3 Family history of diabetes mellitus; Z82.49 Family history of ischemic heart disease and other diseases of the circulatory system; Z86.718 Personal history of other venous thrombosis and embolism; Z98.1 Arthrodesis status; Z90.49 Acquired absence of other specified parts of digestive tract; Z79.891 Long term (current) use of opiate analgesic; Z82.3 Family history of stroke; Z84.1 Family history of disorders of kidney and ureter; Z80.9 Family history of malignant neoplasm, unspecified; Z90.710 Acquired absence of both cervix and uterus; Z86.19 Personal history of other infectious and parasitic diseases
CPT/HCPCS: 36415; 70450; 71275; 72125; 80053; 80061; 82550; 82553; 83036; 83735; 83880; 84484; 85025; 85379; 85610; 85730; 87040; 87077; 87186; 93005; 93306; 96361; 96374; 96375; 96376; 99285

== ENCOUNTER → 2016-08-25 | Outpatient (CLI) | payer MEDICARE ==
[2016-08-25 20:51] LABS: INR 1.3 (<1.1); Prothrombin Time 12.8 sec (9.0-12.0)
== END | disposition home or self-care (01) ==
LOC: MMGSC 09:51
PROVIDERS: ATTEND Family Medicine
DX: Z51.81 Encounter for therapeutic drug level monitoring (principal); Z79.01 Long term (current) use of anticoagulants
CPT/HCPCS: 36415; 85610

== ENCOUNTER → 2016-08-30 | Outpatient (CLI) | payer MEDICARE ==
--- NOTE | 2016-08-30 09:33 | MM ---
Reason for exam: additional evaluation requested from abnormal screening. Last mammogram was performed less than 1 month ago. History: Patient is postmenopausal. Taking antineoplastic for 6 months. Physical Findings: Breast exam preformed on prior 08/15/16 mammogram. MG 3D Follow Up No Charge LT LM, CC with magnification, and LM with magnification view(s) were taken of the left breast. Prior study comparison: August 15, 2016, bilateral MG 3d diag mammo w/cad JAYESH. November 17, 2014, mammogram, performed at [facility]. Coarse calcifications in the left breast, 6 month follow up mammogram. These results were verbally communicated with the patient and result sheet given to the patient on 08/30/16. ASSESSMENT: Probably benign, BI-RAD 3 RECOMMENDATION: Follow-up diagnostic mammogram of the left breast in 6 months.
== END | disposition home or self-care (01) ==
LOC: RADMAMWWP 08:47
PROVIDERS: ATTEND Family Medicine
DX: R92.8 Other abnormal and inconclusive findings on diagnostic imaging of breast (principal)

== ENCOUNTER → 2016-09-08 | Outpatient (CLI) | payer MEDICARE ==
[2016-09-08 18:49] LABS: INR 1.2 (<1.1); Prothrombin Time 11.9 sec (9.0-12.0)
== END ==
LOC: MMGSC 11:01
PROVIDERS: ATTEND Family Medicine
DX: Z51.81 Encounter for therapeutic drug level monitoring (principal); Z79.01 Long term (current) use of anticoagulants
CPT/HCPCS: 36415; 85610

== ENCOUNTER → 2016-09-14 | Outpatient (CLI) | payer MEDICARE ==
[2016-09-14 18:57] LABS: INR 1.8 (<1.1); Prothrombin Time 17.2 sec (9.0-12.0)
== END | disposition home or self-care (01) ==
LOC: MMGSC 16:23
PROVIDERS: ATTEND Family Medicine
DX: Z51.81 Encounter for therapeutic drug level monitoring (principal); Z79.01 Long term (current) use of anticoagulants
CPT/HCPCS: 36415; 85610

== ENCOUNTER → 2016-09-21 | Outpatient (CLI) | payer MEDICARE ==
[2016-09-21 20:26] LABS: INR 2.8 (<1.1); Prothrombin Time 27.2 sec (9.0-12.0)
== END | disposition home or self-care (01) ==
LOC: MMGSC 11:32
PROVIDERS: ATTEND Family Medicine
DX: Z51.81 Encounter for therapeutic drug level monitoring (principal); Z79.01 Long term (current) use of anticoagulants
CPT/HCPCS: 36415; 85610

== ENCOUNTER → 2016-10-05 | Outpatient (CLI) | payer MEDICARE ==
[2016-10-05 20:36] LABS: INR 1.9 (<1.1)
[2016-10-05 22:31] LABS: Hemoglobin A1C 7.1 % (4.2-6.1)
== END ==
LOC: MMGSC 10:55
PROVIDERS: ATTEND Family Medicine
DX: E11.9 Type 2 diabetes mellitus without complications (principal); Z51.81 Encounter for therapeutic drug level monitoring; Z79.01 Long term (current) use of anticoagulants
CPT/HCPCS: 36415; 83036; 85610

== ENCOUNTER 2016-10-20 13:52 | Inpatient (IN) | payer MEDICARE ==
[2016-10-20] MEDS ORDERED: SODIUM CHLORIDE 0.9% 1,000 ML IV STA (14:20)
[2016-10-20] MEDS ORDERED: ONDANSETRON 4 MG/2 ML VIAL IVP STA (14:20)
--- NOTE | 2016-10-20 14:26 | ED ---
General Adult HPI - General Chief complaint: Nausea/Vomiting/Diarrhea Stated complaint: Dr Son/ Abd Pain Time Seen by Provider: 10/20/16 14:13 Source: patient, RN notes reviewed Mode of arrival: ambulatory Limitations: no limitations - History of Present Illness Initial comments: Patient is a 56-year-old female who presents emergency room today with chief complaint of epigastric pain that started last approximate 10:30. She does admit that she was eating proximal half an hour before this pain started. She states that it is a sharp pain located in the epigastric rates around to the back. She missed some nausea. She denies any other complaints or symptoms persist over had symptoms like this in the past. Patient denies any recent fever , chills, shortness of breath, chest pain, back pain,vomiting, numbness or tingling, dysuria or hematuria, constipation or diarrhea, headaches or visual changes, or any other complaints. - Related Data Home Medications Medication Instructions Recorded Confirmed Sertraline [Zoloft] 200 mg PO HS 03/07/15 10/20/16 Atorvastatin [Lipitor] 40 mg PO HS 02/10/16 10/20/16 HYDROcodone/APAP 7.5-325MG [[place] 1 tab PO QID PRN 02/10/16 10/20/16 7.5-325] Lisinopril 10 mg PO DAILY 02/10/16 10/20/16 Glimepiride [Amaryl] 2 mg PO BID 08/17/16 10/20/16 Levothyroxine Sodium [Synthroid] 137 mcg PO DAILY 08/17/16 10/20/16 Warfarin [Coumadin] 15 mg PO HS 10/20/16 10/20/16 Allergies Allergy/AdvReac Type Severity Reaction Status Date / Time No Known Allergies Allergy Verified 10/20/16 14:53 Review of Systems ROS Statement: Those systems with pertinent positive or pertinent negative responses have been documented in the HPI. ROS Other: All systems not noted in ROS Statement are negative. Past Medical History Past Medical History: Chest Pain / Angina, Diabetes Mellitus, Deep Vein Thrombosis (DVT), Hyperlipidemia, Hypertension, Sleep Apnea/CPAP/BIPAP Additional Past Medical History / Comment(s): Obesity, LLE DVT on coumadine since November 13 2015, varicose veins, hx cellulitis left leg, Left Lower extremity DVT with vascular intervention ? stent insertion/thrombolytics, hypertension, hyperlipidemia, DM and Factor V leiden (homozygous), hypothyroidism (post thyroidectomy for a massive goiter). History of Any Multi-Drug Resistant Organisms: None Reported Past Surgical History: Adenoidectomy, Appendectomy, Back Surgery, Cholecystectomy, Hysterectomy, Orthopedic Surgery, Tonsillectomy Additional Past Surgical History / Comment(s): carpal tunnel bilateral, thyroidectomy, ORIF rt ankle, stents in LLE/vascular stent Past Anesthesia/Blood Transfusion Reactions: Postoperative Nausea & Vomiting ( PONV) Additional Past Anesthesia/Blood Transfusion Reaction / Comment(s): blood transfusion(December 2015) Past Psychological History: Depression Smoking Status: Never smoker Past Alcohol Use History: None Reported, Rare Past Drug Use History: None Reported - Past Family History Mother Family Medical History: Renal Disease (Mother at age of 59 from acute renal failure and she had a stroke) Additional Family Medical History / Comment(s): Mother at age 59 from acute renal failure and she had a stroke. Father Family Medical History: Diabetes Mellitus (Father at age 71 from the hypertension diabetes and he had broken heart syndrome), Hypertension Additional Family Medical History / Comment(s): Father at age 71 from hypertension, diabetes and had a broken heart syndrome. Brother(s) Family Medical History: Cancer Sister(s) Family Medical History: Myocardial Infarction (ID) Additional Family Medical History / Comment(s): Patient has 3 sisters and 2 of them are diabetic. Son(s) Family Medical History: No Reported History (Patient has 4 sons no major medical problems) Additional Family Medical History / Comment(s): Patient has 4 sons with no major medical problems. Daughter(s) Family Medical History: Deep Vein Thrombosis (DVT) Additional Family Medical History / Comment(s): Patient has a daughter with DVT. General Exam - General Exam Comments Initial Comments: General: The patient is awake and alert, in no distress, and does not appear acutely ill. Eye: Pupils are equal, round and reactive to light, extra-ocular movements are intact. No nystagmus. There is normal conjunctiva bilaterally. No signs of icterus. Ears, nose, mouth and throat: There are moist mucous membranes and no oral lesions. Neck: The neck is supple, there is no tenderness or JVD. Cardiovascular: There is a regular rate and rhythm. No murmur, rub or gallop is appreciated. Respiratory: Lungs are clear to auscultation, respirations are non-labored, breath sounds are equal. No wheezes, stridor, rales, or rhonchi. Gastrointestinal: Normal appearance abdomen. Normal bowel sounds. Abdomen soft on palpation. Patient does have tenderness in epigastric. No rebound tenderness. No CVA tenderness Musculoskeletal: Normal ROM, no tenderness. Strength 5/5. Sensation intact. Pulses equal bilaterally 2+. Neurological: A&O x 3. CN II-XII intact, There are no obvious motor or sensory deficits. Coordination appears grossly intact. Speech is normal. Skin: Skin is warm and dry and no rashes or lesions are noted. Psychiatric: Cooperative, appropriate mood & affect, normal judgment. Limitations: no limitations Course Vital Signs 10/20/16 10/20/16 10/20/16 14:02 15:43 16:31 Temperature 98.2 F Pulse Rate 64 61 73 Respiratory 18 18 18 Rate Blood Pressure 188/80 187/82 168/73 O2 Sat by Pulse 95 95 98 Oximetry EKG Findings - EKG Comments: EKG Findings:: EKG is performed at 1421: A 12-lead EKG was performed and interpreted by me as showing the following: Rate is 63, and rhythm is normal sinus. There are normal QRS complexes and normal R-wave progression. ST segments have no elevation or depression, and [place] segments appear normal. Medical Decision Making - Medical Decision Making Patient's labs reviewed and are unremarkable. Negative cardiac enzymes. EKG shows normal sinus rhythm. Patient continues to have pain here in the emergency room. Was given GI cocktail with no relief. Given sublingual nitro with no relief. Case discussed with attending physician who has discussed case with Dr. Velazquez will admit the patient consult cardiology. - Lab Data Result diagrams: 10/20/16 15:00 10/20/16 15:00 Lab Results 10/20/16 10/20/16 10/20/16 Range/Units 15:00 15:00 15:00 WBC 5.6 (3.8-10.6) k/uL RBC 4.41 (3.80-5.40) m/uL Hgb 14.1 (11.4-16.0) gm/dL Hct 39.3 (34.0-46.0) % MCV 89.1 (80.0-100.0) fL MCH 31.8 (25.0-35.0) pg MCHC 35.8 (31.0-37.0) g/dL RDW 14.0 (11.5-15.5) % Plt Count 134 L (150-450) k/uL Neutrophils % 74 % Lymphocytes % 16 % Monocytes % 4 % Eosinophils % 3 % Basophils % 1 % Neutrophils # 4.2 (1.3-7.7) k/uL Lymphocytes # 0.9 L (1.0-4.8) k/uL Monocytes # 0.2 (0-1.0) k/uL Eosinophils # 0.2 (0-0.7) k/uL Basophils # 0.0 (0-0.2) k/uL PT (9.0-12.0) sec INR (<1.1) APTT (22.0-30.0) sec Sodium 136 L (137-145) mmol/L Potassium 4.1 (3.5-5.1) mmol/L Chloride 104 (98-107) mmol/L Carbon Dioxide 25 (22-30) mmol/L Anion Gap 7 mmol/L BUN 12 (7-17) mg/dL Creatinine 0.64 (0.52-1.04) mg/dL Est GFR (MDRD) Af Amer >60 (>60 ml/min/1.73 sqM) Est GFR (MDRD) Non-Af >60 (>60 ml/min/1.73 sqM) Glucose 247 H (74-99) mg/dL Calcium 9.0 (8.4-10.2) mg/dL Magnesium 1.7 (1.6-2.3) mg/dL Total Bilirubin 1.4 H (0.2-1.3) mg/dL AST 33 (14-36) U/L ALT 37 (9-52) U/L Alkaline Phosphatase 116 (38-126) U/L Total Creatine Kinase 251 H (30-135) U/L CK-MB (CK-2) 3.1 H* (0.0-2.4) ng/mL CK-MB (CK-2) Rel Index 1.2 Troponin I <0.012 (0.000-0.034) ng/mL Total Protein 6.4 (6.3-8.2) g/dL Albumin 3.4 L (3.5-5.0) g/dL Amylase 38 (30-110) U/L Urine Color Urine Appearance (Clear) Urine pH (5.0-8.0) Ur Specific [place] (1.001-1.035) Urine Protein (Negative) Urine Glucose (UA) (Negative) Urine Ketones (Negative) Urine Blood (Negative) Urine Nitrite (Negative) Urine Bilirubin (Negative) Urine Urobilinogen (<2.0) mg/dL Ur Leukocyte Esterase (Negative) Urine RBC (0-5) /hpf Urine WBC (0-5) /hpf Ur Squamous Epith Cells (0-4) /hpf Amorphous Sediment (None) /hpf Urine Mucus (None) /hpf 10/20/16 10/20/16 Range/Units 15:00 15:33 WBC (3.8-10.6) k/uL RBC (3.80-5.40) m/uL Hgb (11.4-16.0) gm/dL Hct (34.0-46.0) % MCV (80.0-100.0) fL MCH (25.0-35.0) pg MCHC (31.0-37.0) g/dL RDW (11.5-15.5) % Plt Count (150-450) k/uL Neutrophils % % Lymphocytes % % Monocytes % % Eosinophils % % Basophils % % Neutrophils # (1.3-7.7) k/uL Lymphocytes # (1.0-4.8) k/uL Monocytes # (0-1.0) k/uL Eosinophils # (0-0.7) k/uL Basophils # (0-0.2) k/uL PT 23.3 H (9.0-12.0) sec INR 2.4 (<1.1) APTT 31.5 H (22.0-30.0) sec Sodium (137-145) mmol/L Potassium (3.5-5.1) mmol/L Chloride (98-107) mmol/L Carbon Dioxide (22-30) mmol/L Anion Gap mmol/L BUN (7-17) mg/dL Creatinine (0.52-1.04) mg/dL Est GFR (MDRD) Af Amer (>60 ml/min/1.73 sqM) Est GFR (MDRD) Non-Af (>60 ml/min/1.73 sqM) Glucose (74-99) mg/dL Calcium (8.4-10.2) mg/dL Magnesium (1.6-2.3) mg/dL Total Bilirubin (0.2-1.3) mg/dL AST (14-36) U/L ALT (9-52) U/L Alkaline Phosphatase (38-126) U/L Total Creatine Kinase (30-135) U/L CK-MB (CK-2) (0.0-2.4) ng/mL CK-MB (CK-2) Rel Index Troponin I (0.000-0.034) ng/mL Total Protein (6.3-8.2) g/dL Albumin (3.5-5.0) g/dL Amylase (30-110) U/L Urine Color Yellow Urine Appearance Clear (Clear) Urine pH 7.5 (5.0-8.0) Ur Specific [place] 1.015 (1.001-1.035) Urine Protein Negative (Negative) Urine Glucose (UA) 4+ H (Negative) Urine Ketones Negative (Negative) Urine Blood Trace H (Negative) Urine Nitrite Negative (Negative) Urine Bilirubin Negative (Negative) Urine Urobilinogen 2.0 (<2.0) mg/dL Ur Leukocyte Esterase Negative (Negative) Urine RBC 4 (0-5) /hpf Urine WBC 1 (0-5) /hpf Ur Squamous Epith Cells 1 (0-4) /hpf Amorphous Sediment Occasional H (None) /hpf Urine Mucus Occasional H (None) /hpf Disposition Clinical Impression: Epigastric pain, Atypical chest pain Disposition: ADMITTED IP TO THIS HOSP Condition: Stable Referrals: Obdulia Jasso MD [Primary Care Provider] - 1-2 days Time of Disposition: 17:03
[2016-10-20] MEDS ORDERED: MAG HYDROX/AL HYDROX/SIMETH 30 ML, HYOSCYAMINE ELIXIR 10 ML, CIMETIDINE HCL 300 MG, LID... PO STA ×4 (14:40)
[2016-10-20] MEDS ORDERED: HYDROmorphone 1 MG/ML 1 ML SYRINGE IVP STA ×2 (15:07→17:03)
[2016-10-20 15:12] LABS: Basophils % (A) 1 %; CH 32.3; CHCM 36.4; Eosinophils # (A) 0.2 k/uL (0-0.7); Eosinophils % (A) 3 %; HCT 39.3 % (34.0-46.0); HGB 14.1 gm/dL (11.4-16.0); Luc # (Auto) 0.13; Luc % (Auto) 2; Lymphocytes # (A) 0.9 k/uL (1.0-4.8); Lymphocytes % (A) 16 %; MCH 31.8 pg (25.0-35.0); MCHC 35.8 g/dL (31.0-37.0); MCV 89.1 fL (80.0-100.0); Mean Platelet Volume 6.6; Monocytes # (A) 0.2 k/uL (0-1.0); Monocytes % (A) 4 %; Neutrophils # (A) 4.2 k/uL (1.3-7.7); Neutrophils % (A) 74 %; RBC 4.41 m/uL (3.80-5.40); WBC 5.6 k/uL (3.8-10.6); WBC (Perox) 5.63
[2016-10-20 15:24] LABS: INR 2.4 (<1.1); Partial Thromboplastin Time 31.5 sec (22.0-30.0); Prothrombin Time 23.3 sec (9.0-12.0)
[2016-10-20 15:27] LABS: ALT 37 U/L (9-52); AST 33 U/L (14-36); Alkaline Phosphatase 116 U/L (38-126); Amylase 38 U/L (30-110); Anion Gap 7 mmol/L; Blood Urea Nitrogen 12 mg/dL (7-17); Carbon Dioxide 25 mmol/L (22-30); Chloride 104 mmol/L (98-107); Glucose 247 mg/dL (74-99); Magnesium 1.7 mg/dL (1.6-2.3); Non-African American GFR(MDRD) >60 (>60 ml/min/1.73 sqM); Potassium 4.1 mmol/L (3.5-5.1); Sodium 136 mmol/L (137-145); Total Bilirubin 1.4 mg/dL (0.2-1.3); Total Protein 6.4 g/dL (6.3-8.2)
[2016-10-20 15:32] LABS: Creatine Kinase 251 U/L (30-135)
[2016-10-20 15:44] LABS: Troponin I <0.012 ng/mL (0.000-0.034)
--- NOTE | 2016-10-20 15:45 | XR ---
EXAMINATION TYPE: XR chest 2V DATE OF EXAM: 10/20/2016 COMPARISON: Chest x-ray February 13, 2016. CTA chest August 17, 2016. HISTORY: Epigastric and chest pain. TECHNIQUE: Frontal and lateral views of the chest are obtained. FINDINGS: Diminished inspiration is seen on current study. There is no focal air space opacity, pleu ral effusion, or pneumothorax seen. The cardiac silhouette size is mildly enlarged. Anterior fusion plate lower cervical spine is seen. IMPRESSION: Mild cardiomegaly without acute pulmonary process.
[2016-10-20 15:49] LABS: Creatine Kinase MB 3.1 ng/mL (0.0-2.4)
[2016-10-20 16:03] LABS: Amorphous Sediment,Urine Occasional /hpf; Appearance,Urine Clear (Clear); Bilirubin,Urine Negative (Negative); Glucose,Urine (UA) 4+ (Negative); Ketones,Urine Negative (Negative); Leukocyte Esterase,Urine Negative (Negative); Mucus,Urine Occasional /hpf; Nitrite,Urine Negative (Negative); PH, Urine 7.5 (5.0-8.0); Particle Count 742; Protein,Urine Negative (Negative); RBC,Urine 4 /hpf (0-5); Specific Gravity,Urine 1.015 (1.001-1.035); Squamous Epithelial Cell,Urine 1 /hpf (0-4); UA Billing (MACRO vs. MICRO) MICRO; WBC,Urine 1 /hpf (0-5)
[2016-10-20] MEDS ORDERED: ASPIRIN 325 MG TAB PO STA (16:32)
[2016-10-20] MEDS ORDERED: NITROGLYCERIN SL TABS 0.4 MG TAB SUBLINGUAL STA (16:32)
[2016-10-20] MEDS ORDERED: PANTOPRAZOLE 40 MG/10 ML VIAL IVP STA (17:09)
[2016-10-20] MEDS ORDERED: SODIUM CHLORIDE 0.9% 1,000 ML IV ONE (17:14)
[2016-10-20 20:35] LABS: Glucose,Whole Blood 160 mg/dL (75-99)
[2016-10-20 21:06] LABS: Creatine Kinase 200 U/L (30-135)
[2016-10-20] MEDS: ONDANSETRON 4 MG/2 ML VIAL IVP PRN (21:15)
[2016-10-20] MEDS: MORPHINE SULFATE 4 MG/ML SYRINGE IV PRN ×2 (21:15→23:21)
[2016-10-20 21:19] LABS: Troponin I <0.012 ng/mL (0.000-0.034)
[2016-10-20 21:20] LABS: Creatine Kinase MB 2.9 ng/mL (0.0-2.4)
[2016-10-20] MEDS: ATORVASTATIN 40 MG TAB PO SCH (21:46)
[2016-10-20] MEDS: WARFARIN 5 MG TAB PO SCH (21:46)
[2016-10-20] MEDS: GLIMEPIRIDE 2 MG TAB PO SCH (21:46)
[2016-10-20] MEDS: SERTRALINE 100 MG TAB PO SCH (21:46)
[2016-10-20] MEDS: NITROGLYCERIN OINT 1 INCH/GM PACKET TOPICAL SCH (21:48)
[2016-10-20] MEDS: INSULIN LISPRO (humaLOG) 300 UNIT/3 ML VIAL SQ SCH (21:48)
[2016-10-20] MEDS: HYDROcodone/APAP 7.5-325MG 1 EACH TAB PO PRN (23:19)
[2016-10-21] MEDS: ONDANSETRON 4 MG/2 ML VIAL IVP PRN ×2 (03:25→20:15)
[2016-10-21] MEDS: MORPHINE SULFATE 4 MG/ML SYRINGE IV PRN ×2 (03:26→07:26)
[2016-10-21 04:06] LABS: Cholesterol 118 mg/dL (<200); HDL Cholesterol 67 mg/dL (40-60); Triglycerides 85 mg/dL (<150)
[2016-10-21 04:12] LABS: Creatine Kinase 177 U/L (30-135)
[2016-10-21 04:24] LABS: Troponin I <0.012 ng/mL (0.000-0.034)
[2016-10-21 04:25] LABS: Creatine Kinase MB 2.5 ng/mL (0.0-2.4)
[2016-10-21] MEDS: LEVOTHYROXINE 137 MCG TAB PO SCH (05:20)
[2016-10-21] MEDS: NITROGLYCERIN OINT 1 INCH/GM PACKET TOPICAL SCH ×4 (05:20→21:51)
[2016-10-21 06:44] LABS: Glucose,Whole Blood 218 mg/dL (75-99)
[2016-10-21] MEDS: ASPIRIN 325 MG TAB PO SCH (08:56)
[2016-10-21] MEDS: LISINOPRIL 10 MG TAB PO SCH (08:56)
[2016-10-21] MEDS: GLIMEPIRIDE 2 MG TAB PO SCH (08:56)
[2016-10-21] MEDS: PANTOPRAZOLE 40 MG/10 ML VIAL IVP SCH ×2 (08:57→20:10)
[2016-10-21] MEDS: INSULIN LISPRO (humaLOG) 300 UNIT/3 ML VIAL SQ SCH ×4 (09:05→20:12)
[2016-10-21 11:41] LABS: Hemoglobin A1C 7.4 % (4.2-6.1)
--- NOTE | 2016-10-21 12:01 | CONS ---
DATE OF CONSULTATION: This is a 56-year-old lady with multiple medical problems in the form of factor V Leiden, history of deep venous thrombosis on Coumadin, type 2 diabetes mellitus, hypertension, who has been hospitalized before with atypical chest pain. An echocardiogram from January 2016 revealed normal systolic function with concentric LVH. She came into the hospital yesterday with complaints of having some nausea, epigastric discomfort. It happened after she ate something and discomfort is pretty much in the epigastric area. She had some retrosternal burning but most of the symptoms are epigastric with tenderness. There is associated nausea. She had emesis at home, but does not have any chest pain to suggest angina. She is resting comfortably at the time of my evaluation, but I can elicit epigastric tenderness. She has history of obesity, history of previous DVT of left lower extremity, factor V Leiden, type 2 diabetes, hypertension, hypothyroidism, secondary to partial thyroidectomy for goiter, details are unavailable. At the time of my evaluation, she denies chest pain. PAST MEDICAL HISTORY: 1. Previous admissions with atypical chest pain. 2. Hypertension. 3. Obesity. 4. Type 2 diabetes mellitus. 5. History of hypothyroidism. 6. History of Factor V Leiden. 7. History of deep venous thrombosis. Medications at home include: 1. Zoloft. 2. Atorvastatin. 3. [place]. 4. Lisinopril. 5. Glimepiride. 6. Levothyroxine. 7. Warfarin, PT, INR today is 2.4. ALLERGIES: No known drug allergies. SOCIAL HISTORY: Patient is not a smoker, does not use alcohol on a regular basis. On examination, blood pressure is 140/80, but with pain, ( ) systolic does go up, pulse rate is 80 per minute. HEENT: Unremarkable. Fundus was not examined by me. Neck is supple. There is no evidence of any JVD. I do not hear a carotid bruit. Heart exam reveals S1 and S2 heard normally without a rub, murmur or gallop. Lungs are clear. ABDOMEN: Soft. There is epigastric tenderness. Bowel sounds are normal. Lower extremities reveal palpable pulses. No edema. Central nervous system is normal. EKG revealed sinus mechanism. No acute changes. Laboratory data revealed unremarkable troponins. IMPRESSION: 1. Acute gastritis. 2. History of Factor V Leiden with deep venous thrombosis on Coumadin, PT, INR is therapeutic. 3. Type 2 diabetes mellitus. 4. Hypertension. 5. Obesity. RECOMMENDATIONS: From a cardiac standpoint, I would not recommend any intervention. In August of this year, she had an echocardiogram, which revealed a normal systolic function with borderline concentric LVH and mild mitral and tricuspid insufficiency with borderline pulmonary hypertension. Patient's presentation is that of epigastric discomfort I am recommending Protonix. We will discontinue IV heparin and we will request Gastroenterology to evaluate the patient. I discussed my thoughts in detail with the patient. Thank you very much for the consult.
[2016-10-21 12:14] LABS: Glucose,Whole Blood 178 mg/dL (75-99)
[2016-10-21 13:14] VITALS: BMI 44.6
[2016-10-21] MEDS ORDERED: SUCRALFATE 1 GM TAB PO STA (13:52)
[2016-10-21] MEDS ORDERED: HYDROmorphone 1 MG/ML 1 ML SYRINGE IVP STA (13:53)
[2016-10-21] MEDS ORDERED: MAG HYDROX/AL HYDROX/SIMETH 30 ML CUP PO STA (13:56)
--- NOTE | 2016-10-21 14:35 | US ---
EXAMINATION TYPE: US abdomen complete DATE OF EXAM: 10/21/2016 COMPARISON: CT abdomen and pelvis March 09, 2015. CLINICAL HISTORY: epi pain. Patient having extreme pain chest area EXAM MEASUREMENTS: Liver Length: 15.5 cm Gallbladder Wall: Surgically absent cm CBD: 1.1 cm Spleen: 12.6 cm Right Kidney: 11.9 x 4.8 x 5.7 cm Left Kidney: 12.1 x 5.6 x 5.8 cm Pancreas: not visualized due to body habitus and bowel gas Liver: very coarse echotexture, Gallbladder: Surgically absent CBD: Minimally dilated at 1.1 cm Spleen: measures upper limits of normal Right Kidney: No hydronephrosis or masses seen Left Kidney: upper pole hypoechoic area, probable cyst measuring 2.8 x 2.7 x 2.4 cm Upper IVC: not well seen Abd Aorta: not seen due to body habitus and bowel gas Pancreas is suboptimally seen due to body habitus and overlying bowel gas. Visualized liver is hetero geneous in appearance, evaluation for focal masses is suboptimal due to the heterogeneity. No intrahe patic ductal dilatation is seen. No definitive suspicious solid or cystic masses are identified. Comm on bile duct measures 11 mm in diameter which is minimally dilated after cholecystectomy but not sign ificantly changed from prior CT. There is redemonstration of 2.8 cm simple appearing cyst upper pole level left kidney. IMPRESSION: Suboptimal study, heterogeneity of liver may reflect diffuse fatty infiltration or underl demario hepatocellular disease.
--- NOTE | 2016-10-21 16:25 | P.HPIM ---
History of Present Illness H&P Date: 10/21/16 his is a 55-year-old female one of Dr. Avila with a previous medical history significant for hypertension and hypertensive cardiovascular disease with left ventricular hypertrophy, hyperkalemia, diabetes mellitus type 2, osteoarthritis, obesity with obstructive sleep apnea. Patient was last hospitalized in 08/18/2016 secondary to chest pain. He was seen by cardiology at that time, however she was counseled on a stress test that could be done as an outpatient, stress test was not performed during the last visit secondary to her uncontrolled headache, it turned out to be occipital neuralgia requiring occipital nerve block by anesthesia pain management. 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 Patient gives history that she was at [facility] January 2016 and spent 3 weeks in the intensive care unit. She states she was treated for left DVT and had 2 stents placed. She was also treated for bacteremia. Patient was started on Coumadin. Echocardiogram at that time shows ejection fraction of 50- 55% with mild concentric LVH and mild aortic valve sclerosis without stenosis mild mitral regurgitation and mild tricuspid regurgitation and mild pulmonary hypertension She presented the emergency room secondary to epigastric discomfort which started the day of admission, without relief, she tried Pepto-Bismol , hydrocodone, Tums, Pepto-Bismol are not helpful, her last colonoscopy was 5 years ago and was reported to be normal, patient did not have any EGD in the past the patient denies any diarrhea, no recent NSAID use, no melena and hematochezia patient currently still in significant pain, without relief, IV Dilaudid has to be given for comfort, Review of Systems Constitutional: Reports as per HPI, Reports anorexia Ears, nose, mouth and throat: Reports as per HPI Cardiovascular: Reports as per HPI Respiratory: Reports as per HPI, Denies congestion, Denies cough, Denies cough with sputum, Denies dyspnea, Denies excessive sputum, Denies hemoptysis, Denies home oxygen, Denies pain, Denies pain on inspiration, Denies pleurisy, Denies respiratory infections, Denies sleep apnea, Denies snoring, Denies wheezing Gastrointestinal: Reports as per HPI, Reports abdominal pain, Reports early satiety, Reports excessive gas, Denies belching, Denies bloating, Denies BRBPR, Denies change in bowel habits, Denies coffee ground emesis, Denies constipation , Denies diarrhea, Denies dyspepsia, Denies heartburn, Denies hematemesis, Denies hematochezia, Denies indigestion, Denies jaundice, Denies lactose intolerance, Denies loss of appetite, Denies melena, Denies nausea, Denies vomiting Genitourinary: Reports as per HPI Menstruation: Reports as per HPI, Denies amenorrhea, Denies amenorrhea on BC, Denies currently menstrual, Denies cycle < 21 days, Denies cycle > 35 days, Denies cycle variable, Denies menses 1-7 days, Denies menses 8 or > days, Denies menses variable, Denies period heavy, Denies period light, Denies period normal, Denies period spotting, Denies post hysterectomy, Denies postmenopausal , Denies premenarcheal Musculoskeletal: Reports as per HPI, Denies arm numbness/tingling, Denies atrophy, Denies fractures, Denies frequent falls, Denies gait dysfunction, Denies hot joints, Denies leg numbness/tingling, Denies limitation of motion, Denies loss of height, Denies low back pain, Denies morning stiffness, Denies muscle cramps, Denies muscle weakness, Denies myalgias, Denies neck pain, Denies neck stiffness, Denies prior amputations, Denies redness of joints, Denies shooting arm pain, Denies shooting leg pain Integumentary: Reports as per HPI, Denies acne, Denies boils, Denies brittle nails, Denies change in hair/nails, Denies color changes, Denies darkening of skin, Denies depigmentation, Denies dryness, Denies foot/leg ulcers, Denies growths, Denies hirsutism, Denies lesions, Denies onychomycosis, Denies pruritus , Denies rash, Denies sores, Denies striae, Denies unusual bruising, Denies wounds Neurological: Reports as per HPI, Denies aphasia, Denies ataxia, Denies balance difficulties, Denies burning pain, Denies change in mentation, Denies change in smell/taste, Denies change in speech, Denies confusion, Denies convulsions, Denies double vision, Denies gait dysfunction, Denies head injury, Denies headaches, Denies hearing difficulties, Denies lack of coordination, Denies loss of vision, Denies memory loss, Denies migraines, Denies motor disturbance, Denies numbness, Denies paralysis, Denies paresthesias, Denies seizures, Denies sensory deficit, Denies spasticity, Denies syncope, Denies tic, Denies tingling , Denies transient paralysis, Denies tremors, Denies vertigo, Denies weakness, Denies visual changes Psychiatric: Reports as per HPI Endocrine: Reports as per HPI, Denies cold intolerance, Denies deepening of the voice, Denies excessive sweating, Denies excessive thirst, Denies fatigue, Denies flushing, Denies heat intolerance, Denies high blood sugars, Denies increase in ring/shoe/hat size, Denies low blood sugars, Denies nocturia, Denies palpitations, Denies polydipsia, Denies polyphagia, Denies polyuria, Denies proptosis, Denies recent glucocorticoid use, Denies thyroid mass, Denies weight change Past Medical History Past Medical History: Chest Pain / Angina, Diabetes Mellitus, Deep Vein Thrombosis (DVT), Hyperlipidemia, Hypertension, Sleep Apnea/CPAP/BIPAP Additional Past Medical History / Comment(s): Obesity, LLE DVT on coumadine since November 13 2015, varicose veins, hx cellulitis left leg, Left Lower extremity DVT with vascular intervention ? stent insertion/thrombolytics, hypertension, hyperlipidemia, DM and Factor V leiden (homozygous), hypothyroidism (post thyroidectomy for a massive goiter). stated had a pne vaccine not sure of date History of Any Multi-Drug Resistant Organisms: None Reported Past Surgical History: Adenoidectomy, Appendectomy, Back Surgery, Cholecystectomy, Hysterectomy, Orthopedic Surgery, Tonsillectomy Additional Past Surgical History / Comment(s): carpal tunnel bilateral, thyroidectomy, ORIF rt ankle, stents in LLE/vascular stent Past Anesthesia/Blood Transfusion Reactions: Postoperative Nausea & Vomiting ( PONV) Additional Past Anesthesia/Blood Transfusion Reaction / Comment(s): blood transfusion(December 2015)"pt stated an hour after transfusion became very nauseated and had quit a bit of vomiting" Past Psychological History: Depression Additional Psychological History / Comment(s): AT TIME OF THIS ADMIT,PT DENIES ANY THOUGHTS OF WANTING TO HARM SELF. PT LIVES WITH HER SPOUSE, 3 KIDS AND 3 DOGS.PT IS INDEPENDANT.USED TO WORK [employer]. NO OUTSIDE SERVICES RECIEVED. HAS A CPAP MACHINE AND A GLUCOMETER. Smoking Status: Never smoker Past Alcohol Use History: Rare Past Drug Use History: None Reported - Past Family History Mother Family Medical History: Renal Disease (Mother at age of 59 from acute renal failure and she had a stroke) Additional Family Medical History / Comment(s): Mother at age 59 from acute renal failure and she had a stroke. Father Family Medical History: Diabetes Mellitus (Father at age 71 from the hypertension diabetes and he had broken heart syndrome), Hypertension Additional Family Medical History / Comment(s): Father at age 71 from hypertension, diabetes and had a broken heart syndrome. Brother(s) Family Medical History: Cancer Sister(s) Family Medical History: Myocardial Infarction ([place]) Additional Family Medical History / Comment(s): Patient has 3 sisters and 2 of them are diabetic. Son(s) Family Medical History: No Reported History (Patient has 4 sons no major medical problems) Additional Family Medical History / Comment(s): Patient has 4 sons with no major medical problems. Daughter(s) Family Medical History: Deep Vein Thrombosis (DVT) Additional Family Medical History / Comment(s): Patient has a daughter with DVT. Medications and Allergies Home Medications Medication Instructions Recorded Confirmed Type Sertraline [Zoloft] 200 mg PO HS 03/07/15 10/20/16 History Atorvastatin [Lipitor] 40 mg PO HS 02/10/16 10/20/16 History HYDROcodone/APAP 7.5-325MG [[place] 1 tab PO QID PRN 02/10/16 10/20/16 History 7.5-325] Lisinopril 10 mg PO DAILY 02/10/16 10/20/16 History Glimepiride [Amaryl] 2 mg PO BID 08/17/16 10/20/16 History Levothyroxine Sodium [Synthroid] 137 mcg PO DAILY 08/17/16 10/20/16 History Warfarin [Coumadin] 15 mg PO HS 10/20/16 10/20/16 History Allergies Allergy/AdvReac Type Severity Reaction Status Date / Time No Known Allergies Allergy Verified 10/20/16 14:53 Physical Exam Vitals: Vital Signs Temp Pulse Pulse Resp BP BP Pulse Ox 10/21/16 15:34 99.1 F 90 16 154/88 93 L 10/21/16 11:50 98.5 F 85 16 161/84 95 10/21/16 07:19 98.2 F 91 16 172/90 94 L 10/21/16 04:00 98.5 F 83 18 140/80 92 L 10/20/16 23:20 84 18 187/95 96 10/20/16 23:11 18 10/20/16 20:00 18 10/20/16 19:26 98 F 76 18 149/77 92 L 10/20/16 18:05 97.5 F L 70 18 147/72 96 10/20/16 18:03 98.1 F 80 16 111/79 96 10/20/16 16:31 73 18 168/73 98 Intake and Output 10/21/16 10/21/16 10/21/16 06:59 14:59 22:59 Other: Voiding Method Toilet Toilet # Voids 1 Weight 121.563 kg Patient Weight 10/22/16 06:59 Weight 121.563 kg - Constitutional General appearance: cooperative, no acute distress, obese - EENT Eyes: anicteric sclerae, EOMI, PERRLA, dentition normal, normal appearance ENT: NA/AT, normal oropharynx - Respiratory Respiratory: bilateral: CTA, negative: diminished, dullness, rales, rhonchi - Cardiovascular Rhythm: regular Heart sounds: normal: S1, S2 Abnormal Heart Sounds: no systolic murmur, no diastolic murmur, no rub, no S3 Gallop, no S4 Gallop, no click, no other - Gastrointestinal General gastrointestinal: normal bowel sounds, soft, tenderness Localized gastrointestinal: tender: epigastric periumbilical - Integumentary Integumentary: normal, normal turgor - Neurologic Neurologic: CNII-XII intact - Musculoskeletal Musculoskeletal: gait normal, strength equal bilaterally - Psychiatric Psychiatric: A&O x's 3, appropriate affect, intact judgment & insight Results CBC & Chem 7: 10/20/16 15:00 10/20/16 15:00 Labs: Abnormal Lab Results - Last 24 Hours (Table) 10/20/16 10/20/16 10/21/16 Range/Units 20:33 20:34 03:10 POC Glucose (mg/dL) 160 H (75-99) mg/dL Hemoglobin A1c (4.2-6.1) % Total Creatine Kinase 200 H 177 H (30-135) U/L CK-MB (CK-2) 2.9 H* 2.5 H* (0.0-2.4) ng/mL HDL Cholesterol (40-60) mg/dL 10/21/16 10/21/16 10/21/16 Range/Units 03:10 03:10 06:41 POC Glucose (mg/dL) 218 H (75-99) mg/dL Hemoglobin A1c 7.4 H (4.2-6.1) % Total Creatine Kinase (30-135) U/L CK-MB (CK-2) (0.0-2.4) ng/mL HDL Cholesterol 67 H (40-60) mg/dL 10/21/16 Range/Units 12:12 POC Glucose (mg/dL) 178 H (75-99) mg/dL Hemoglobin A1c (4.2-6.1) % Total Creatine Kinase (30-135) U/L CK-MB (CK-2) (0.0-2.4) ng/mL HDL Cholesterol (40-60) mg/dL Laboratory Results WBC 5.6 k/uL (3.8-10.6) 10/20/16 15:00 RBC 4.41 m/uL (3.80-5.40) 10/20/16 15:00 Hgb 14.1 gm/dL (11.4-16.0) 10/20/16 15:00 Hct 39.3 % (34.0-46.0) 10/20/16 15:00 MCV 89.1 fL (80.0-100.0) 10/20/16 15:00 MCH 31.8 pg (25.0-35.0) 10/20/16 15:00 MCHC 35.8 g/dL (31.0-37.0) 10/20/16 15:00 RDW 14.0 % (11.5-15.5) 10/20/16 15:00 Plt Count 134 k/uL (150-450) L 10/20/16 15:00 Neutrophils % 74 % 10/20/16 15:00 Lymphocytes % 16 % 10/20/16 15:00 Monocytes % 4 % 10/20/16 15:00 Eosinophils % 3 % 06/09/17 15:00 Basophils % 1 % 10/20/16 15:00 Neutrophils # 4.2 k/uL (1.3-7.7) 10/20/16 15:00 Lymphocytes # 0.9 k/uL (1.0-4.8) L 10/20/16 15:00 Monocytes # 0.2 k/uL (0-1.0) 10/20/16 15:00 Eosinophils # 0.2 k/uL (0-0.7) 10/20/16 15:00 Basophils # 0.0 k/uL (0-0.2) 10/20/16 15:00 PT 23.3 sec (9.0-12.0) H 10/20/16 15:00 INR 2.4 (<1.1) 10/20/16 15:00 APTT 31.5 sec (22.0-30.0) H 10/20/16 15:00 Sodium 136 mmol/L (137-145) L 10/20/16 15:00 Potassium 4.1 mmol/L (3.5-5.1) 10/20/16 15:00 Chloride 104 mmol/L (98-107) 10/20/16 15:00 Carbon Dioxide 25 mmol/L (22-30) 10/20/16 15:00 Anion Gap 7 mmol/L 10/20/16 15:00 BUN 12 mg/dL (7-17) 10/20/16 15:00 Creatinine 0.64 mg/dL (0.52-1.04) 10/20/16 15:00 Est GFR (MDRD) Af Amer >60 (>60 ml/min/1.73 sqM) 10/20/16 15:00 Est GFR (MDRD) Non-Af >60 (>60 ml/min/1.73 sqM) 10/20/16 15:00 Glucose 247 mg/dL (74-99) H 10/20/16 15:00 POC Glucose (mg/dL) 178 mg/dL (75-99) H 10/21/16 12:12 POC Glu Special Needs Teacher ID Darby Salcido 10/21/16 12:[address] Glu mg/dL 166 mg/dL 10/21/16 03:10 Hemoglobin A1c 7.4 % (4.2-6.1) H 10/21/16 03:10 Calcium 9.0 mg/dL (8.4-10.2) 10/20/16 15:00 Magnesium 1.7 mg/dL (1.6-2.3) 10/20/16 15:00 Total Bilirubin 1.4 mg/dL (0.2-1.3) H 10/20/16 15:00 AST 33 U/L (14-36) 10/20/16 15:00 ALT 37 U/L (9-52) 10/20/16 15:00 Alkaline Phosphatase 116 U/L (38-126) 10/20/16 15:00 Total Creatine Kinase 177 U/L (30-135) H 10/21/16 03:10 CK-MB (CK-2) 2.5 ng/mL (0.0-2.4) H* 10/21/16 03:10 CK-MB (CK-2) Rel Index 1.4 10/21/16 03:10 Troponin I <0.012 ng/mL (0.000-0.034) 10/21/16 03:10 Total Protein 6.4 g/dL (6.3-8.2) 10/20/16 15:00 Albumin 3.4 g/dL (3.5-5.0) L 10/20/16 15:00 Triglycerides 85 mg/dL (<150) 10/21/16 03:10 Cholesterol 118 mg/dL (<200) 10/21/16 03:10 LDL Cholesterol, Calc 34 mg/dL (0-99) 10/21/16 03:10 HDL Cholesterol 67 mg/dL (40-60) H 10/21/16 03:10 Amylase 38 U/L (30-110) 10/20/16 15:00 Lipase 199 U/L (23-300) 10/20/16 15:00 Urine Color Yellow 10/20/16 15:33 Urine Appearance Clear (Clear) 10/20/16 15:33 Urine pH 7.5 (5.0-8.0) 10/20/16 15:33 Ur Specific [place] 1.015 (1.001-1.035) 10/20/16 15:33 Urine Protein Negative (Negative) 10/20/16 15:33 Urine Glucose (UA) 4+ (Negative) H 10/20/16 15:33 Urine Ketones Negative (Negative) 10/20/16 15:33 Urine Blood Trace (Negative) H 10/20/16 15:33 Urine Nitrite Negative (Negative) 10/20/16 15:33 Urine Bilirubin Negative (Negative) 10/20/16 15:33 Urine Urobilinogen 2.0 mg/dL (<2.0) 10/20/16 15:33 Ur Leukocyte Esterase Negative (Negative) 10/20/16 15:33 Urine RBC 4 /hpf (0-5) 10/20/16 15:33 Urine WBC 1 /hpf (0-5) 10/20/16 15:33 Ur Squamous Epith Cells 1 /hpf (0-4) 10/20/16 15:33 Amorphous Sediment Occasional /hpf (None) H 10/20/16 15:33 Urine Mucus Occasional /hpf (None) H 10/20/16 15:33 Thrombosis Risk Factor Assmnt - DVT/VTE Prophylaxis DVT/VTE Prophylaxis: Pharmacologic Prophylaxis ordered, Mechanical Prophylaxis ordered - Choose All That Apply Each Factor Represents 1 point: Obesity (BMI >25) Each Risk Factor Represents 3 Points: History of DVT/PE Thrombosis Risk Factor Assessment Total Risk Factor Score: 4 Thrombosis Risk Factor Assessment Level: Moderate Risk Assessment and Plan Plan: 1. Atypical Chest pain with epigastric pain most likely GI in pathology, gastritis against gastroparesis, patient willbe seen in consultation by cardiology and gastroenterology, abdominal ultrasound was requested by gastroenterology, patient was started on Protonix 40 mg every 12 along with Carafate and Maalox x1 plus. She still needs to comply with previous cardiology recommendation for outpatient stress test in 2-3 weeks. Lipase and amylase normal, bilirubin slightly elevated 1.4, otherwise LFTs are normal including alkaline phosphatase. Nuclear med gastric Emptying time was canceled secondary to her narcotic requirements while in the hospital 2. Intractable epigastric abdominal pain, cannot rule out biliary dyskinesia again severe gastritis, patient currently is on high-dose Protonix 40 mg twice a day, Carafate has been added along with Maalox plus pump, patient might need more GI cocktails be given how she is in need of IV Dilaudid for comfort, patient was wrything in pain the Nipride is on hold secondary to the abdominal pain patient currently is on nothing by mouth which would be transitioned to clear liquid diet 3. Diabetes mellitus type 2 complications. Continue glimepiride 2 mg twice daily as diet is appropriate and Humalog scale before meals and at bedtime. 4. Hypertension and hypertensive cardio vascular disease. Continue lisinopril 10 mg daily. 5. Prior history of cholecystectomy secondary to gallbladder stones, abdominal ultrasound was requested to evaluate for common bile duct, 6. History of lower extremity DVT and had stent placement at [facility] with factor V deficiency currently on Coumadin. Continue Coumadin to maintain INR between 2 and 3. Recheck INR in the morning. 7. Hyperlipidemia. Continue Lipitor 40 mg at bedtime 8. Obesity with obstructive sleep apnea. Continue CPAP. 9. Depression recurrent. Continue Zoloft 200 mg at bedtime. 10. Overactive bladder. Continue oxybutynin 5 mg daily. 11. DVT prophylaxis. Patient is therapeutic on Coumadin. 12. Gastrointestinal prophylaxis. Continue Pepcid. 11. History of bacteremia while hospitalized at [facility] 2016.
[2016-10-21 17:20] LABS: Glucose,Whole Blood 125 mg/dL (75-99)
[2016-10-21] MEDS: SUCRALFATE 1 GM TAB PO SCH (18:03)
--- NOTE | 2016-10-21 18:32 | CONS ---
DATE OF CONSULTATION: 10/21/2016. REASON FOR CONSULTATION: Epigastric pain. HISTORY OF PRESENT ILLNESS: The patient is a 56-srinivasan-old pleasant white female, admitted to the hospital because of severe epigastric and chest pain that started yesterday morning at 10 a.m. The pain continued to progressively get worse and she had a couple of episodes of nausea and vomiting yesterday. Hence she came into the emergency room and subsequently was admitted to the hospital for further evaluation. She still has pain in the epigastric area, as well as in the lower sternal area. She had some nausea this morning, but no emesis. She continues to remain n.p.o. for now, until seen by cardiology. The patient denies any cardiac issues in the past. She does have history of deep venous thrombosis related to factor V Leiden deficiency and has been on Coumadin for several years. She had gallbladder surgery 30 years ago for symptomatic gallstones, but she does not recall having this kind of pain in the past. She reports no heartburn, tinnitus, no dysphagia or ( ). No recent NSAID use. No prior history of peptic ulcer disease. PAST MEDICAL HISTORY: Significant for hypertension, morbid obesity, diabetes mellitus, hypothyroidism, factor V Leiden deficiency, history of DVT in the past. Medications at home include Coumadin, levothyroxine, glimepiride, lisinopril, [place], atorvastatin and Zoloft. ALLERGIES: None. SOCIAL HISTORY: No smoking, no alcohol use. FAMILY HISTORY: Unremarkable. REVIEW OF SYSTEMS: CARDIOPULMONARY: No chest pain, shortness of breath. GENITOURINARY: No dysuria or hematuria. MUSCULOSKELETAL: Unremarkable. SKIN: Unremarkable. ENDOCRINE: Unremarkable. PSYCHIATRIC: Unremarkable. NEUROLOGY: Unremarkable. CONSTITUTIONAL: No recent weight loss. No fevers, chills or night sweats. HEMATOLOGY: Unremarkable. ENDOCRINE: Unremarkable. MUSCULOSKELETAL: Unremarkable. PHYSICAL EXAMINATION: She appears comfortable in no apparent distress. Vitals as are stable. Blood pressure is 130/86, pulse rate 82 per minute and afebrile. HEENT: Unremarkable. Conjunctivae pink. Sclerae anicteric. Oral cavity, no lesions. NECK: No JVD or lymph node enlargement. Chest was clear to auscultation. HEART: Regular rate and rhythm ABDOMEN: Soft. Mild tenderness in the epigastric area. Bowel sounds are positive. No organomegaly. EXTREMITIES: No pedal edema. SKIN: No rashes. NEURO: Alert and oriented x3. No focal deficits. Labs done at the time of admission to the hospital, CBC with differential count is within normal limits. PT 23.3, INR 2.4. ALT, AST, T-bili and alkaline phosphatase are all within normal limits. Amylase and lipase are normal. IMPRESSION: This is a lady who presented to the hospital with acute onset of severe epigastric and lower sternal chest pain that started yesterday morning at 10 a.m. Denies any prior history of peptic ulcer disease. No recent NSAID use. She is status post gallbladder surgery for symptomatic gallstones 30 years ago. She continues to remain symptomatic. She was evaluated by cardiology and no further plans for cardiac work-up. At this time it appears that most likely we are dealing with an upper gastrointestinal pathology, possibly acute gastritis/GERD. RECOMMENDATIONS: 1. Continue with IV Protonix 40 mg every12. 2. Pain medications as needed. 3. Start on clear liquid diet. 4. Obtain ultrasound of abdomen will follow her closely during her hospital stay. Thank you for this consultation.
[2016-10-21 20:04] LABS: Glucose,Whole Blood 134 mg/dL (75-99)
[2016-10-21] MEDS: SERTRALINE 100 MG TAB PO SCH (20:10)
[2016-10-21] MEDS: WARFARIN 5 MG TAB PO SCH (20:10)
[2016-10-21] MEDS: ATORVASTATIN 40 MG TAB PO SCH (20:10)
[2016-10-21] MEDS: HYDROmorphone 1 MG/ML 1 ML SYRINGE IVP PRN (20:11)
[2016-10-22] MEDS: HYDROmorphone 1 MG/ML 1 ML SYRINGE IVP PRN ×2 (03:06→20:22)
[2016-10-22] MEDS: LEVOTHYROXINE 137 MCG TAB PO SCH (05:37)
[2016-10-22 06:39] LABS: Glucose,Whole Blood 155 mg/dL (75-99)
[2016-10-22 07:18] LABS: Basophils % (A) 0 %; CH 31.8; CHCM 34.5; Eosinophils # (A) 0.1 k/uL (0-0.7); Eosinophils % (A) 1 %; HCT 38.1 % (34.0-46.0); HDW 2.97; HGB 13.2 gm/dL (11.4-16.0); Luc # (Auto) 0.14; Luc % (Auto) 2; Lymphocytes # (A) 0.8 k/uL (1.0-4.8); Lymphocytes % (A) 8 %; MCH 32.2 pg (25.0-35.0); MCHC 34.7 g/dL (31.0-37.0); MCV 92.6 fL (80.0-100.0); Monocytes # (A) 0.8 k/uL (0-1.0); Monocytes % (A) 8 %; Neutrophils % (A) 81 %; RBC 4.12 m/uL (3.80-5.40); RDW 14.4 % (11.5-15.5); WBC 9.9 k/uL (3.8-10.6); WBC (Perox) 10.55
[2016-10-22 07:42] LABS: ALT 43 U/L (9-52); AST 64 U/L (14-36); Alkaline Phosphatase 133 U/L (38-126); Anion Gap 5 mmol/L; Blood Urea Nitrogen 14 mg/dL (7-17); Calcium 8.5 mg/dL (8.4-10.2); Carbon Dioxide 27 mmol/L (22-30); Chloride 103 mmol/L (98-107); Glucose 148 mg/dL (74-99); Non-African American GFR(MDRD) >60 (>60 ml/min/1.73 sqM); Sodium 135 mmol/L (137-145); Total Bilirubin 2.2 mg/dL (0.2-1.3); Total Protein 5.7 g/dL (6.3-8.2)
[2016-10-22 07:49] LABS: Potassium 4.2 mmol/L (3.5-5.1)
[2016-10-22] MEDS: SUCRALFATE 1 GM TAB PO SCH ×3 (09:12→18:00)
[2016-10-22] MEDS: LISINOPRIL 10 MG TAB PO SCH (09:12)
[2016-10-22] MEDS: ASPIRIN 325 MG TAB PO SCH (09:12)
[2016-10-22] MEDS: PANTOPRAZOLE 40 MG/10 ML VIAL IVP SCH ×2 (09:12→22:33)
[2016-10-22] MEDS: INSULIN LISPRO (humaLOG) 300 UNIT/3 ML VIAL SQ SCH ×3 (09:13→17:55)
[2016-10-22 11:34] LABS: Glucose,Whole Blood 137 mg/dL (75-99)
[2016-10-22] MEDS: NITROGLYCERIN OINT 1 INCH/GM PACKET TOPICAL SCH ×2 (12:33→17:49)
[2016-10-22] MEDS: HYDROcodone/APAP 7.5-325MG 1 EACH TAB PO PRN ×2 (13:41→22:32)
[2016-10-22] MEDS ORDERED: RX INFO: IV CONTRAST WAS GIVEN 1 EACH MISC MISCELLANE PRN (14:27)
[2016-10-22] MEDS ORDERED: IOHEXOL 350 MG/ML 25 ML BOTTLE (ORAL USE) PO PRN (14:27)
--- NOTE | 2016-10-22 15:36 | P.GSCN ---
History of Present Illness Consult date: 10/22/16 Reason for Consult: Abdominal pain History of present illness: Patient hospitalized with complaints of upper abdominal pain. She states this began fairly suddenly on the eighth. Pain is not radiating. It has been associated with episodes of vomiting. She describes frequent stools that are loose in nature. Denies rectal bleeding or melena. She's been seen by GI and cardiology. She is a history of factor V Leiden deficiency. She has been on Coumadin. Recent INR was therapeutic. She is post cholecystectomy 30 years ago through a large upper midline incision. Denies heartburn. No history of known ulcers. Denies melena or rectal bleeding. The patient is quite obese. She does not feel a bulge in her abdomen. The patient's been kept on antiacid therapy. Pain medications persists. Abdominal ultrasound was performed which was fairly nonspecific. Currently the patient has a CAT scan ordered. Review of Systems The patient denies any acute changes in his vision or hearing, no dysphagia or odynophagia, no chest pain or shortness of breath, no dysuria or hematuria, no headache, no runny nose, no rectal bleeding or melena, no unexplained weight loss Past Medical History Past Medical History: Chest Pain / Angina, Diabetes Mellitus, Deep Vein Thrombosis (DVT), Hyperlipidemia, Hypertension, Sleep Apnea/CPAP/BIPAP Additional Past Medical History / Comment(s): Obesity, LLE DVT on coumadine since November 13 2015, varicose veins, hx cellulitis left leg, Left Lower extremity DVT with vascular intervention ? stent insertion/thrombolytics, hypertension, hyperlipidemia, DM and Factor V leiden (homozygous), hypothyroidism (post thyroidectomy for a massive goiter). stated had a pne vaccine not sure of date History of Any Multi-Drug Resistant Organisms: None Reported Past Surgical History: Adenoidectomy, Appendectomy, Back Surgery, Cholecystectomy, Hysterectomy, Orthopedic Surgery, Tonsillectomy Additional Past Surgical History / Comment(s): carpal tunnel bilateral, thyroidectomy, ORIF rt ankle, stents in LLE/vascular stent Past Anesthesia/Blood Transfusion Reactions: Postoperative Nausea & Vomiting ( PONV) Additional Past Anesthesia/Blood Transfusion Reaction / Comm: blood transfusion( December 2015)"pt stated an hour after transfusion became very nauseated and had quit a bit of vomiting" Past Psychological History: Depression Additional Psychological History / Comment(s): AT TIME OF THIS ADMIT,PT DENIES ANY THOUGHTS OF WANTING TO HARM SELF. 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 NO OUTSIDE SERVICES RECIEVED. HAS A CPAP MACHINE AND A GLUCOMETER. Smoking Status: Never smoker Past Alcohol Use History: Rare Past Drug Use History: None Reported - Past Family History Mother Family Medical History: Renal Disease (Mother at age of 59 from acute renal failure and she had a stroke) Additional Family Medical History / Comment(s): Mother at age 59 from acute renal failure and she had a stroke. Father Family Medical History: Diabetes Mellitus (Father at age 71 from the hypertension diabetes and he had broken heart syndrome), Hypertension Additional Family Medical History / Comment(s): Father at age 71 from hypertension, diabetes and had a broken heart syndrome. Brother(s) Family Medical History: Cancer Sister(s) Family Medical History: Myocardial Infarction ([place]) Additional Family Medical History / Comment(s): Patient has 3 sisters and 2 of them are diabetic. Son(s) Family Medical History: No Reported History (Patient has 4 sons no major medical problems) Additional Family Medical History / Comment(s): Patient has 4 sons with no major medical problems. Daughter(s) Family Medical History: Deep Vein Thrombosis (DVT) Additional Family Medical History / Comment(s): Patient has a daughter with DVT. Medications and Allergies Home Medications Medication Instructions Recorded Confirmed Type Sertraline [Zoloft] 200 mg PO HS 03/07/15 10/20/16 History Atorvastatin [Lipitor] 40 mg PO HS 02/10/16 10/20/16 History HYDROcodone/APAP 7.5-325MG [[place] 1 tab PO QID PRN 02/10/16 10/20/16 History 7.5-325] Lisinopril 10 mg PO DAILY 02/10/16 10/20/16 History Glimepiride [Amaryl] 2 mg PO BID 08/17/16 10/20/16 History Levothyroxine Sodium [Synthroid] 137 mcg PO DAILY 08/17/16 10/20/16 History Warfarin [Coumadin] 15 mg PO HS 10/20/16 10/20/16 History Allergies Allergy/AdvReac Type Severity Reaction Status Date / Time No Known Allergies Allergy Verified 10/20/16 14:53 Surgical - Exam Vital Signs Temp Pulse Resp BP Pulse Ox 98.2 F 64 18 188/80 95 10/20/16 14:02 10/20/16 14:02 10/20/16 14:02 10/20/16 14:02 10/20/16 14:02 Physical exam: General: Well-developed, well-nourished, some distress related to pain HEENT: Normocephalic, sclerae nonicteric Abdomen: Obese, upper midline tenderness, no palpable mass or hernia, prior scars noted, no rebound or guarding Extremities: No edema Neuro: Alert and oriented Results - Labs 10/22/16 06:40 10/22/16 06:40 Abnormal Lab Results - Last 24 Hours (Table) 10/21/16 10/21/16 10/22/16 Range/Units 17:15 20:03 06:37 Plt Count (150-450) k/uL Neutrophils # (1.3-7.7) k/uL Lymphocytes # (1.0-4.8) k/uL Sodium (137-145) mmol/L Glucose (74-99) mg/dL POC Glucose (mg/dL) 125 H 134 H 155 H (75-99) mg/dL Total Bilirubin (0.2-1.3) mg/dL AST (14-36) U/L Alkaline Phosphatase (38-126) U/L Total Protein (6.3-8.2) g/dL Albumin (3.5-5.0) g/dL 10/22/16 10/22/16 10/22/16 Range/Units 06:40 06:40 11:33 Plt Count 131 L (150-450) k/uL Neutrophils # 8.0 H (1.3-7.7) k/uL Lymphocytes # 0.8 L (1.0-4.8) k/uL Sodium 135 L (137-145) mmol/L Glucose 148 H (74-99) mg/dL POC Glucose (mg/dL) 137 H (75-99) mg/dL Total Bilirubin 2.2 H (0.2-1.3) mg/dL AST 64 H (14-36) U/L Alkaline Phosphatase 133 H (38-126) U/L Total Protein 5.7 L (6.3-8.2) g/dL Albumin 3.0 L (3.5-5.0) g/dL Diabetes panel 10/22/16 Range/Units 06:40 Sodium 135 L (137-145) mmol/L Potassium 4.2 (3.5-5.1) mmol/L Chloride 103 (98-107) mmol/L Carbon Dioxide 27 (22-30) mmol/L BUN 14 (7-17) mg/dL Creatinine 0.70 (0.52-1.04) mg/dL Glucose 148 H (74-99) mg/dL Calcium 8.5 (8.4-10.2) mg/dL AST 64 H (14-36) U/L ALT 43 (9-52) U/L Alkaline Phosphatase 133 H (38-126) U/L Total Protein 5.7 L (6.3-8.2) g/dL Albumin 3.0 L (3.5-5.0) g/dL Calcium panel 10/22/16 Range/Units 06:40 Calcium 8.5 (8.4-10.2) mg/dL Albumin 3.0 L (3.5-5.0) g/dL Pituitary panel 10/22/16 Range/Units 06:40 Sodium 135 L (137-145) mmol/L Potassium 4.2 (3.5-5.1) mmol/L Chloride 103 (98-107) mmol/L Carbon Dioxide 27 (22-30) mmol/L BUN 14 (7-17) mg/dL Creatinine 0.70 (0.52-1.04) mg/dL Glucose 148 H (74-99) mg/dL Calcium 8.5 (8.4-10.2) mg/dL Adrenal panel 10/22/16 Range/Units 06:40 Sodium 135 L (137-145) mmol/L Potassium 4.2 (3.5-5.1) mmol/L Chloride 103 (98-107) mmol/L Carbon Dioxide 27 (22-30) mmol/L BUN 14 (7-17) mg/dL Creatinine 0.70 (0.52-1.04) mg/dL Glucose 148 H (74-99) mg/dL Calcium 8.5 (8.4-10.2) mg/dL Total Bilirubin 2.2 H (0.2-1.3) mg/dL AST 64 H (14-36) U/L ALT 43 (9-52) U/L Alkaline Phosphatase 133 H (38-126) U/L Total Protein 5.7 L (6.3-8.2) g/dL Albumin 3.0 L (3.5-5.0) g/dL Assessment and Plan (1) Epigastric pain Narrative/Plan: Will check lactic acid level. Will review CAT scan abdomen and pelvis once obtained. If her symptoms persist would agree with upper endoscopy. Status: Acute
--- NOTE | 2016-10-22 16:43 | P.PN ---
Subjective This is a 55-year-old female one of Dr. Avila with a previous medical history significant for hypertension and hypertensive cardiovascular disease with left ventricular hypertrophy, hyperkalemia, factor V Leiden homozygous, previous DVTs diabetes mellitus type 2, osteoarthritis, hypothyroidism obesity with obstructive sleep apnea. Patient was last hospitalized in 08/18/2016 secondary to chest pain. He was seen by cardiology at that time, however she was counseled on a stress test that could be done as an outpatient, stress test was not performed during the last visit secondary to her uncontrolled headache, it turned out to be occipital neuralgia requiring occipital nerve block by anesthesia pain management. She did not follow-up with the building dismantler for her stress test. Patient gives history that she was at [facility] January 2016 and spent 3 weeks in the intensive care unit. She states she was treated for left DVT and had 2 stents placed. She was also treated for bacteremia. Patient was started on Coumadin. Echocardiogram at that time shows ejection fraction of 50- 55% with mild concentric LVH and mild aortic valve sclerosis without stenosis mild mitral regurgitation and mild tricuspid regurgitation and mild pulmonary hypertension She presented the emergency room secondary to epigastric discomfort which started the day of admission, without relief, she tried Pepto-Bismol , hydrocodone, Tums, Pepto-Bismol are not helpful, her last colonoscopy was 5 years ago and was reported to be normal, patient did not have any EGD in the past the patient denies any diarrhea, no recent NSAID use, no melena and hematochezia patient currently still in significant pain, without relief, IV Dilaudid has to be given for comfort, 10/22: Patient's epigastric and upper quadrant pain still is persistent patient cannot be made comfortable, CAT scan of the abdomen and pelvis was requested to evaluate for any ischemic bowel, agents maintained on PPIs and H2 blockers, abdominal ultrasound failed to reveal any abnormal pathology, 11 mm common bile duct as expected from cholecystectomy, Dr. Wilkerson was consulted for general surgery, discuss case with Dr. Wilkerson, Coumadin on hold with possibility of endoscopy in the morning Objective - Vital Signs Vital signs: Vital Signs Temp 98.6 F 10/22/16 11:54 Pulse 86 10/22/16 11:54 Resp 16 10/22/16 15:40 BP 141/67 10/22/16 11:54 Pulse Ox 93 L 10/22/16 11:54 Intake & Output 10/21/16 10/22/16 10/22/16 18:59 06:59 18:59 Intake Total 140 Balance 140 Weight 121.563 kg Intake: Oral 140 Other: Voiding Method Toilet Toilet Toilet - Constitutional General appearance: Present: cooperative, no acute distress, obese - EENT Eyes: Present: anicteric sclerae, EOMI, PERRLA, poor dentition, normal appearance ENT: Present: hearing grossly normal, NA/AT, normal oropharynx - Neck Neck: Present: normal ROM - Respiratory Respiratory: bilateral: CTA, negative: diminished, dullness, rales, rhonchi, wheezing - Cardiovascular Rhythm: regular Heart sounds: normal: S1, S2 - Gastrointestinal General gastrointestinal: Present: soft, tenderness Localized gastrointestinal: tender: epigastric periumbilical - Integumentary Integumentary: Present: normal, normal turgor - Neurologic Neurologic: Present: CNII-XII intact - Musculoskeletal Musculoskeletal: Present: gait normal, strength equal bilaterally - Psychiatric Psychiatric: Present: A&O x's 3, appropriate affect, intact judgment & insight - Labs CBC & Chem 7: 10/22/16 06:40 10/22/16 06:40 Labs: Abnormal Lab Results - Last 24 Hours (Table) 10/21/16 10/21/16 10/22/16 Range/Units 17:15 20:03 06:37 Plt Count (150-450) k/uL Neutrophils # (1.3-7.7) k/uL Lymphocytes # (1.0-4.8) k/uL Sodium (137-145) mmol/L Glucose (74-99) mg/dL POC Glucose (mg/dL) 125 H 134 H 155 H (75-99) mg/dL Total Bilirubin (0.2-1.3) mg/dL AST (14-36) U/L Alkaline Phosphatase (38-126) U/L Total Protein (6.3-8.2) g/dL Albumin (3.5-5.0) g/dL 10/22/16 10/22/16 10/22/16 Range/Units 06:40 06:40 11:33 Plt Count 131 L (150-450) k/uL Neutrophils # 8.0 H (1.3-7.7) k/uL Lymphocytes # 0.8 L (1.0-4.8) k/uL Sodium 135 L (137-145) mmol/L Glucose 148 H (74-99) mg/dL POC Glucose (mg/dL) 137 H (75-99) mg/dL Total Bilirubin 2.2 H (0.2-1.3) mg/dL AST 64 H (14-36) U/L Alkaline Phosphatase 133 H (38-126) U/L Total Protein 5.7 L (6.3-8.2) g/dL Albumin 3.0 L (3.5-5.0) g/dL Assessment and Plan Plan: 1. Atypical Chest pain with epigastric pain most likely GI in pathology, gastritis against gastroparesis, patient willbe seen in consultation by cardiology and gastroenterology, abdominal ultrasound was requested by gastroenterology, patient was started on Protonix 40 mg every 12 along with Carafate and Maalox x1 plus. She still needs to comply with previous cardiology recommendation for outpatient stress test in 2-3 weeks. Lipase and amylase normal, bilirubin slightly elevated 1.4, otherwise LFTs are normal including alkaline phosphatase. Nuclear med gastric Emptying time was canceled secondary to her narcotic requirements while in the hospital 2. Intractable epigastric abdominal pain, cannot rule ischemic bowel against gastroparesis again severe gastritis, patient currently is on high-dose Protonix 40 mg twice a day, Carafate has been added along with Maalox plus pump , patient might need more GI cocktails be given how she is in need of IV Dilaudid for comfort, patient was wrything in pain the glimepiride on hold secondary to the abdominal pain patient currently is on nothing by mouth which would be transitioned to clear liquid diet 3. Diabetes mellitus type 2 complications. Continue glimepiride 2 mg twice daily as diet is appropriate and Humalog scale before meals and at bedtime. 4. Hypertension and hypertensive cardio vascular disease. Continue lisinopril 10 mg daily. 5. Prior history of cholecystectomy secondary to gallbladder stones, abdominal ultrasound was requested to evaluate for common bile duct, 6. History of lower extremity DVT and had stent placement at [facility] with factor V deficiency currently on Coumadin. Continue Coumadin to maintain INR between 2 and 3. Recheck INR in the morning. Coumadin held 10/22 possible EGD in the morning 7. Hyperlipidemia. Continue Lipitor 40 mg at bedtime 8. Obesity with obstructive sleep apnea. Continue CPAP. 9. Depression recurrent. Continue Zoloft 200 mg at bedtime. 10. Overactive bladder. Continue oxybutynin 5 mg daily. 11. DVT prophylaxis. Patient is therapeutic on Coumadin. 12. Gastrointestinal prophylaxis. Continue Pepcid. 11. History of bacteremia while hospitalized at [facility] 2016.
[2016-10-22 16:58] LABS: INR 2.6 (<1.1); Prothrombin Time 25.5 sec (9.0-12.0)
--- NOTE | 2016-10-22 16:59 | CT ---
EXAMINATION TYPE: CT abdomen pelvis w con DATE OF EXAM: 10/22/2016 COMPARISON: 03/09/2015 HISTORY: Epigastric pain and vomiting. CT DLP: 2822.3 mGycm Automated exposure control for dose reduction was used. TECHNIQUE: Helical acquisition of images was performed from the lung bases through the pelvis. CONTRAST: Performed with Oral Contrast and with IV Contrast, patient injected with 100 mL of Omnipaque 300. FINDINGS: There is mild atelectasis at the left and right posterior lung base. Spleen is enlarged and measures 14 cm in length. There is no focal liver defect. Common bile duct is large and measures 1.6 cm. Cholecystectomy is noted. The pancreas appears normal. There is no adrenal mass. There is a 3.5 cm cortical cyst in the posterior right kidney. There is no hydronephrosis. Ureters are not dilated. Bladder distends smoothly. There is a 12 x 5 cm complex mass involving the small bowel mesentery. There is no sign of a bowel ob struction. There are some retroperitoneal lymph nodes measure up to 1.5 cm. There is there is a stent in the left iliac vein.. Varicosities noted in the retroperitoneum on the left side. There are varic ose veins around the left adrenal gland and posterior to the pancreas. I see no bony destructive proc ess. IMPRESSION: THERE IS A LARGE COMPLEX MIXED DENSITY MESENTERIC MASS THAT IS NEW COMPARED TO OLD CT SCAN. SPLENOMEG JOSEF AND VARICES ARE PRESENT PROBABLY DUE TO PORTAL VENOUS HYPERTENSION. I WOULD CONSIDER POSSIBILITIES OF SUBACUTE RETROPERITONEAL HEMORRHAGE, LYMPHOMA. FOLLOW-UP IS RECOMME NDED. MILD ATELECTASIS AT THE LUNG BASES. STABLE LEFT RENAL CORTICAL CYST.
[2016-10-22 17:18] LABS: Glucose,Whole Blood 137 mg/dL (75-99)
[2016-10-22] MEDS: SERTRALINE 100 MG TAB PO SCH (22:33)
[2016-10-22] MEDS: ATORVASTATIN 40 MG TAB PO SCH (22:33)
[2016-10-22 22:49] LABS: Glucose,Whole Blood 115 mg/dL (75-99)
[2016-10-23] MEDS: INSULIN LISPRO (humaLOG) 300 UNIT/3 ML VIAL SQ SCH ×5 (01:09→20:47)
[2016-10-23] MEDS: HYDROmorphone 1 MG/ML 1 ML SYRINGE IVP PRN ×4 (01:10→17:43)
[2016-10-23 05:51] LABS: Basophils % (A) 0 %; CH 31.8; CHCM 34.3; Eosinophils # (A) 0.2 k/uL (0-0.7); Eosinophils % (A) 3 %; HDW 2.99; HGB 12.7 gm/dL (11.4-16.0); Luc # (Auto) 0.15; Luc % (Auto) 2; Lymphocytes # (A) 0.8 k/uL (1.0-4.8); Lymphocytes % (A) 12 %; MCH 32.1 pg (25.0-35.0); MCHC 34.4 g/dL (31.0-37.0); MCV 93.4 fL (80.0-100.0); Mean Platelet Volume 6.8; Monocytes # (A) 0.4 k/uL (0-1.0); Monocytes % (A) 6 %; Neutrophils # (A) 5.2 k/uL (1.3-7.7); Neutrophils % (A) 77 %; RBC 3.96 m/uL (3.80-5.40); RDW 14.3 % (11.5-15.5); WBC 6.8 k/uL (3.8-10.6); WBC (Perox) 7.13
[2016-10-23 06:00] LABS: INR 2.7 (<1.1); Prothrombin Time 25.6 sec (9.0-12.0)
[2016-10-23 06:06] LABS: ALT 54 U/L (9-52); AST 87 U/L (14-36); Alkaline Phosphatase 204 U/L (38-126); Anion Gap 5 mmol/L; Blood Urea Nitrogen 13 mg/dL (7-17); Calcium 8.4 mg/dL (8.4-10.2); Carbon Dioxide 29 mmol/L (22-30); Chloride 103 mmol/L (98-107); Glucose 108 mg/dL (74-99); Non-African American GFR(MDRD) >60 (>60 ml/min/1.73 sqM); Potassium 3.8 mmol/L (3.5-5.1); Sodium 137 mmol/L (137-145); Total Bilirubin 4.4 mg/dL (0.2-1.3); Total Protein 5.4 g/dL (6.3-8.2)
[2016-10-23] MEDS: NITROGLYCERIN OINT 1 INCH/GM PACKET TOPICAL SCH ×4 (06:22→23:43)
[2016-10-23 07:11] LABS: Glucose,Whole Blood 122 mg/dL (75-99)
[2016-10-23] MEDS: SUCRALFATE 1 GM TAB PO SCH ×3 (09:13→17:43)
[2016-10-23] MEDS: LEVOTHYROXINE 137 MCG TAB PO SCH (09:13)
[2016-10-23] MEDS: PANTOPRAZOLE 40 MG/10 ML VIAL IVP SCH ×2 (09:13→20:41)
[2016-10-23] MEDS: LISINOPRIL 10 MG TAB PO SCH (09:13)
[2016-10-23] MEDS: ASPIRIN 325 MG TAB PO SCH (09:15)
[2016-10-23 12:40] LABS: Glucose,Whole Blood 145 mg/dL (75-99)
--- NOTE | 2016-10-23 14:52 | P.PN ---
Subjective This is a 55-year-old female one of Dr. Avila with a previous medical history significant for hypertension and hypertensive cardiovascular disease with left ventricular hypertrophy, hyperkalemia, factor V Leiden homozygous, previous DVTs diabetes mellitus type 2, osteoarthritis, hypothyroidism obesity with obstructive sleep apnea. Patient was last hospitalized in 08/18/2016 secondary to chest pain. He was seen by cardiology at that time, however she was counseled on a stress test that could be done as an outpatient, stress test was not performed during the last visit secondary to her uncontrolled headache, it turned out to be occipital neuralgia requiring occipital nerve block by anesthesia pain management. She did not follow-up with the marine engineering teacher for her stress test. Patient gives history that she was at [facility] January 2016 and spent 3 weeks in the intensive care unit. She states she was treated for left DVT and had 2 stents placed. She was also treated for bacteremia. Patient was started on Coumadin. Echocardiogram at that time shows ejection fraction of 50- 55% with mild concentric LVH and mild aortic valve sclerosis without stenosis mild mitral regurgitation and mild tricuspid regurgitation and mild pulmonary hypertension She presented the emergency room secondary to epigastric discomfort which started the day of admission, without relief, she tried Pepto-Bismol, hydrocodone, Tums are not helpful, her last colonoscopy was 5 years ago and was reported to be normal, patient did not have any EGD in the past the patient denies any diarrhea, no recent NSAID use, no melena and hematochezia patient currently still in significant pain, without relief, IV Dilaudid has to be given for comfort, 10/22: Patient's epigastric and upper quadrant pain still is persistent patient cannot be made comfortable, CAT scan of the abdomen and pelvis was requested to evaluate for any ischemic bowel, maintained on PPIs and H2 blockers, abdominal ultrasound failed to reveal any abnormal pathology, 11 mm common bile duct as expected from cholecystectomy, Dr. Wilkerson was consulted for general surgery, discuss case with Dr. Wilkerson, Coumadin on hold with possibility of endoscopy in the morning 10/23: CAT scan of the abdomen and pelvis with contrast reveals a large complex mixed density mesenteric mass that is new compared to old CAT scan. Splenomegaly and varices are present probably due to portal venous hypertension. Consult with Dr. Alvarez added. Liver function tests are elevated with a total bilirubin of 4.4, AST 87, ALT 54, alkaline phosphatase 204. Objective - Vital Signs Vital signs: Vital Signs Temp 97.5 F L 10/23/16 07:29 Pulse 80 10/23/16 07:29 Resp 16 10/23/16 07:29 BP 145/73 10/23/16 07:29 Pulse Ox 95 10/23/16 07:41 Intake & Output 10/22/16 10/23/16 10/23/16 18:59 06:59 18:59 Intake Total 340 Balance 340 Intake: Oral 340 Other: Voiding Method Toilet Toilet # Voids 1 - Exam General appearance: Present: cooperative, no acute distress, obese - EENT Eyes: Present: anicteric sclerae, EOMI, PERRLA, poor dentition, normal appearance ENT: Present: hearing grossly normal, NA/AT, normal oropharynx - Neck Neck: Present: normal ROM - Respiratory Respiratory: bilateral: CTA, negative: diminished, dullness, rales, rhonchi, wheezing - Cardiovascular Rhythm: regular Heart sounds: normal: S1, S2 - Gastrointestinal General gastrointestinal: Present: soft, tenderness Localized gastrointestinal: tender: epigastric periumbilical - Integumentary Integumentary: Present: normal, normal turgor - Neurologic Neurologic: Present: CNII-XII intact - Musculoskeletal Musculoskeletal: Present: gait normal, strength equal bilaterally - Psychiatric Psychiatric: Present: A&O x's 3, appropriate affect, intact judgment & insight - Labs CBC & Chem 7: 10/23/16 05:25 10/23/16 05:25 Labs: Abnormal Lab Results - Last 24 Hours (Table) 10/22/16 10/22/16 10/22/16 Range/Units 06:40 06:40 11:33 Plt Count (150-450) k/uL Lymphocytes # (1.0-4.8) k/uL PT 25.5 H (9.0-12.0) sec Glucose (74-99) mg/dL POC Glucose (mg/dL) 137 H (75-99) mg/dL Total Bilirubin (0.2-1.3) mg/dL AST (14-36) U/L ALT (9-52) U/L Alkaline Phosphatase (38-126) U/L Lactate Dehydrogenase 2532 H (313-618) U/L Total Protein (6.3-8.2) g/dL Albumin (3.5-5.0) g/dL 10/22/16 10/22/16 10/23/16 Range/Units 17:16 22:37 05:25 Plt Count 124 L (150-450) k/uL Lymphocytes # 0.8 L (1.0-4.8) k/uL PT (9.0-12.0) sec Glucose (74-99) mg/dL POC Glucose (mg/dL) 137 H 115 H (75-99) mg/dL Total Bilirubin (0.2-1.3) mg/dL AST (14-36) U/L ALT (9-52) U/L Alkaline Phosphatase (38-126) U/L Lactate Dehydrogenase (313-618) U/L Total Protein (6.3-8.2) g/dL Albumin (3.5-5.0) g/dL 10/23/16 10/23/16 10/23/16 Range/Units 05:25 05:25 07:07 Plt Count (150-450) k/uL Lymphocytes # (1.0-4.8) k/uL PT 25.6 H (9.0-12.0) sec Glucose 108 H (74-99) mg/dL POC Glucose (mg/dL) 122 H (75-99) mg/dL Total Bilirubin 4.4 H (0.2-1.3) mg/dL AST 87 H (14-36) U/L ALT 54 H (9-52) U/L Alkaline Phosphatase 204 H (38-126) U/L Lactate Dehydrogenase (313-618) U/L Total Protein 5.4 L (6.3-8.2) g/dL Albumin 2.7 L (3.5-5.0) g/dL Assessment and Plan Plan: 1. Intractable epigastric abdominal pain most likely secondary to large complex mixed density mesenteric mass. Dr. Wilkerson is on consult and GI services. She is currently on clear liquid diet. MRCP has been ordered. Continue Dilaudid and [place] for pain control. Continue Zofran as needed for nausea. Continue Carafate. Coumadin remains on hold. Consult with oncology added 2. Diabetes mellitus type 2. Continue glimepiride 2 mg twice daily and Humalog scale before meals and at bedtime. 3. Hypertension and hypertensive cardio vascular disease. Continue lisinopril 10 mg daily. 4. Prior history of cholecystectomy secondary to gallbladder stones, abdominal ultrasound was requested to evaluate for common bile duct, 5. History of lower extremity DVT and had stent placement at [facility] with factor V deficiency currently on Coumadin. Continue Coumadin to maintain INR between 2 and 3. Recheck INR in the morning. Coumadin currently on hold. 7. Hyperlipidemia. Continue Lipitor 40 mg at bedtime 8. Obesity with obstructive sleep apnea. Continue CPAP. 9. Depression recurrent. Continue Zoloft 200 mg at bedtime. 10. Overactive bladder. Continue oxybutynin 5 mg daily. 11. DVT prophylaxis. Patient is therapeutic on Coumadin. 12. Gastrointestinal prophylaxis. Continue Pepcid. 11. History of bacteremia while hospitalized at [facility] 2016. Discharge plan: To be determined Impression and plan of care have been directed as dictated by the signing physician. Lou Orellana nurse practitioner acting as scribe for signing physician.
--- NOTE | 2016-10-23 15:28 | PN ---
DATE OF SERVICE: 10/23/2016 Patient is a 56-year-old pleasant lady admitted to the hospital with acute onset of severe epigastric and lower sternal chest pain that started about 3 days ago. She had some episodes of nausea, vomiting. When she came in to the emergency room, her serum transaminases and CBC were within normal limits. She initially had an ultrasound of the abdomen done that showed fatty liver but otherwise it was unremarkable. Because of the persistent symptoms, she had a CT of the abdomen done yesterday that showed large complex mixed density mesenteric mass measuring 12 x 5 cm in size, involving the small bowel mesentery. There is no evidence of small bowel obstruction. Also there was mention of common bile duct measuring 1.6 cm in diameter, evidence of cholecystectomy. There was the presence of splenomegaly and varices. In the meantime, the patient says that she is feeling a little bit better. She still has abdominal pain on and off but not as intense as before. On physical examination, appears comfortable, in no apparent distress. Vitals as are stable. Blood pressure is 142/72, pulse rate 94, temperature 98.1. HEENT examination unremarkable. Conjunctivae are pink. Sclerae nonicteric. Oral cavity no lesions. NECK: No JVD or lymph node enlargement. Chest was clear to auscultation. HEART: Regular rate and rhythm. ABDOMEN: Mild tenderness in the epigastric area. Obese. Bowel sounds are positive. No organomegaly. EXTREMITIES: No pedal edema. SKIN: No rashes. NEURO: She is alert and oriented x3. No focal deficits. LABS: WBC is 6.8, hemoglobin 12.7, platelets 124, INR is 2.7, T-bili is up to 4.4. AST is 87, ALT is 54, alk phos is 204. IMPRESSION: This is a lady who presents with severe epigastric pain of acute onset as well as lower sternal chest pain. CT of the abdomen showed a 12 x 5 cm small bowel mesenteric mass with no small bowel obstruction. No mention of this mass compressing the biliary system. However, she is noted to have mild elevation of serum transaminases and bilirubin; which was within normal limits, has increased to 4.4 today with mild elevation of serum transaminases. The CAT scan also showed a dilated CBD measuring 1.6 cm in diameter and history of cholecystectomy. At this time, it is unclear whether we are dealing with an extensive compression versus possibility of CBD stone causing elevated serum transaminases. She also has a history of underlying liver disease and fatty liver disease diagnosed several years ago. RECOMMENDATIONS: 1. Will discuss with Dr. Wilkerson about biopsy of the mesenteric mass. 2. In the meantime, I will proceed with an MRCP to rule out any biliary pathology and rule out CBD obstruction. 3. Remain on a clear liquid diet. 4. Hold Coumadin and will follow her closely during her hospital stay.
[2016-10-23] MEDS ORDERED: PHYTONADIONE ORAL 5 MG/5 ML ORAL.SYRG PO STA (16:06)
[2016-10-23 17:02] LABS: Glucose,Whole Blood 104 mg/dL (75-99)
--- NOTE | 2016-10-23 18:17 | P.PN ---
Subjective Principal diagnosis: Abdominal pain Patient had her CAT scan performed yesterday. Her CAT scan was reviewed with her and also with Dr. Gallagher and Dr. Velazquez. The CAT scan shows a mesenteric mass abutting the third portion of the duodenum. There may have been some hemorrhage into this masslike area. Today her bilirubin was elevated and an MRI was ordered by Dr. Gallagher. Those results are not available to me at this time. Overall the patient states her pain is improved. Objective - Vital Signs Vital signs: Vital Signs Temp 97.0 F L 10/23/16 14:54 Pulse 74 10/23/16 14:54 Resp 16 10/23/16 14:54 BP 118/70 10/23/16 14:54 Pulse Ox 97 10/23/16 14:54 Intake & Output 10/22/16 10/23/16 10/23/16 18:59 06:59 18:59 Intake Total 340 Balance 340 Intake: Oral 340 Other: Voiding Method Toilet Toilet Toilet # Voids 1 1 - Exam Abdomen: Soft, nondistended, mild upper abdominal tenderness - Labs CBC & Chem 7: 10/23/16 05:25 10/23/16 05:25 Labs: Abnormal Lab Results - Last 24 Hours (Table) 10/22/16 10/23/16 10/23/16 Range/Units 22:37 05:25 05:25 Plt Count 124 L (150-450) k/uL Lymphocytes # 0.8 L (1.0-4.8) k/uL PT (9.0-12.0) sec Glucose 108 H (74-99) mg/dL POC Glucose (mg/dL) 115 H (75-99) mg/dL Total Bilirubin 4.4 H (0.2-1.3) mg/dL AST 87 H (14-36) U/L ALT 54 H (9-52) U/L Alkaline Phosphatase 204 H (38-126) U/L Total Protein 5.4 L (6.3-8.2) g/dL Albumin 2.7 L (3.5-5.0) g/dL 10/23/16 10/23/16 10/23/16 Range/Units 05:25 07:07 12:37 Plt Count (150-450) k/uL Lymphocytes # (1.0-4.8) k/uL PT 25.6 H (9.0-12.0) sec Glucose (74-99) mg/dL POC Glucose (mg/dL) 122 H 145 H (75-99) mg/dL Total Bilirubin (0.2-1.3) mg/dL AST (14-36) U/L ALT (9-52) U/L Alkaline Phosphatase (38-126) U/L Total Protein (6.3-8.2) g/dL Albumin (3.5-5.0) g/dL 10/23/16 Range/Units 16:57 Plt Count (150-450) k/uL Lymphocytes # (1.0-4.8) k/uL PT (9.0-12.0) sec Glucose (74-99) mg/dL POC Glucose (mg/dL) 104 H (75-99) mg/dL Total Bilirubin (0.2-1.3) mg/dL AST (14-36) U/L ALT (9-52) U/L Alkaline Phosphatase (38-126) U/L Total Protein (6.3-8.2) g/dL Albumin (3.5-5.0) g/dL Assessment and Plan (1) Epigastric pain Narrative/Plan: Await MRI report. Consult oncology for assistance with workup of this mass which may represent a lymphoma. Patient may benefit from endoscopic ultrasound with biopsy. We'll follow with you. Status: Acute
[2016-10-23] MEDS: ATORVASTATIN 40 MG TAB PO SCH (20:17)
[2016-10-23] MEDS: SERTRALINE 100 MG TAB PO SCH (20:18)
[2016-10-23] MEDS: HYDROcodone/APAP 7.5-325MG 1 EACH TAB PO PRN (20:22)
[2016-10-23] MEDS: PHYTONADIONE ORAL 5 MG/5 ML ORAL.SYRG PO SCH (20:40)
[2016-10-23 20:54] LABS: Glucose,Whole Blood 197 mg/dL (75-99)
[2016-10-24] MEDS: HYDROmorphone 1 MG/ML 1 ML SYRINGE IVP PRN ×4 (00:37→21:04)
[2016-10-24] MEDS: NITROGLYCERIN OINT 1 INCH/GM PACKET TOPICAL SCH ×4 (06:09→23:36)
[2016-10-24] MEDS: LEVOTHYROXINE 137 MCG TAB PO SCH (06:41)
[2016-10-24 07:42] LABS: Glucose,Whole Blood 113 mg/dL (75-99)
[2016-10-24] MEDS: INSULIN LISPRO (humaLOG) 300 UNIT/3 ML VIAL SQ SCH ×4 (07:45→21:13)
[2016-10-24] MEDS: PANTOPRAZOLE 40 MG/10 ML VIAL IVP SCH ×2 (07:49→20:57)
[2016-10-24] MEDS: SUCRALFATE 1 GM TAB PO SCH ×3 (07:49→17:22)
[2016-10-24] MEDS: ASPIRIN 325 MG TAB PO SCH (07:49)
[2016-10-24] MEDS: LISINOPRIL 10 MG TAB PO SCH (07:49)
[2016-10-24 08:18] LABS: Basophils % (A) 0 %; CH 31.8; CHCM 34.2; Eosinophils # (A) 0.2 k/uL (0-0.7); Eosinophils % (A) 5 %; HCT 36.9 % (34.0-46.0); HDW 3.07; HGB 12.3 gm/dL (11.4-16.0); Luc % (Auto) 2; Lymphocytes # (A) 0.4 k/uL (1.0-4.8); Lymphocytes % (A) 10 %; MCH 31.1 pg (25.0-35.0); MCHC 33.3 g/dL (31.0-37.0); MCV 93.4 fL (80.0-100.0); Mean Platelet Volume 6.9; Monocytes # (A) 0.4 k/uL (0-1.0); Monocytes % (A) 8 %; Neutrophils # (A) 3.4 k/uL (1.3-7.7); Neutrophils % (A) 75 %; RBC 3.95 m/uL (3.80-5.40); WBC 4.5 k/uL (3.8-10.6); WBC (Perox) 4.96
[2016-10-24 08:28] LABS: INR 1.4 (<1.1)
[2016-10-24 08:35] LABS: ALT 46 U/L (9-52); AST 70 U/L (14-36); Alkaline Phosphatase 241 U/L (38-126); Anion Gap 6 mmol/L; Blood Urea Nitrogen 14 mg/dL (7-17); Calcium 8.2 mg/dL (8.4-10.2); Carbon Dioxide 28 mmol/L (22-30); Chloride 103 mmol/L (98-107); Glucose 110 mg/dL (74-99); Non-African American GFR(MDRD) >60 (>60 ml/min/1.73 sqM); Potassium 3.6 mmol/L (3.5-5.1); Sodium 137 mmol/L (137-145); Total Bilirubin 3.7 mg/dL (0.2-1.3); Total Protein 5.5 g/dL (6.3-8.2)
--- NOTE | 2016-10-24 09:28 | P.CONS ---
History of Present Illness - Reason for Consult Consult date: 10/24/16 messenteric mass Requesting physician: Lou Orellana - Chief Complaint abdominal pain - History of Present Illness Ms. Cervantes is a very pleasant female pt. with a history of Factor V leiden mutation, DVT in RLE last year, no other personal history of malignancy to report, she does have a left breast mass that is being monitored Q 6 months. Pt started having upper abd pains, sharp, persistent, nothing was alleviating , some mild nausea and not really hungry because of pain. Denied sweats, unintentional wt. loss, changes in energy levels, other pains, dysphagia, changes in breathing, bowel or bladder habits. She is comfortable at this time. Review of Systems All systems: negative Constitutional: Reports as per HPI Past Medical History Past Medical History: Chest Pain / Angina, Diabetes Mellitus, Deep Vein Thrombosis (DVT), Hyperlipidemia, Hypertension, Sleep Apnea/CPAP/BIPAP Additional Past Medical History / Comment(s): Obesity, LLE DVT on coumadine since November 13 2015, varicose veins, hx cellulitis left leg, Left Lower extremity DVT with vascular intervention ? stent insertion/thrombolytics, hypertension, hyperlipidemia, DM and Factor V leiden (homozygous), hypothyroidism (post thyroidectomy for a massive goiter). stated had a pne vaccine not sure of date History of Any Multi-Drug Resistant Organisms: None Reported Past Surgical History: Adenoidectomy, Appendectomy, Back Surgery, Cholecystectomy, Hysterectomy, Orthopedic Surgery, Tonsillectomy Additional Past Surgical History / Comment(s): carpal tunnel bilateral, thyroidectomy, ORIF rt ankle, stents in LLE/vascular stent Past Anesthesia/Blood Transfusion Reactions: Postoperative Nausea & Vomiting ( PONV) Additional Past Anesthesia/Blood Transfusion Reaction / Comm: blood transfusion( December 2015)"pt stated an hour after transfusion became very nauseated and had quit a bit of vomiting" Past Psychological History: Depression Additional Psychological History / Comment(s): AT TIME OF THIS ADMIT,PT DENIES ANY THOUGHTS OF WANTING TO HARM SELF. PT LIVES WITH HER SPOUSE, 3 KIDS AND 3 DOGS.PT IS INDEPENDANT.USED TO WORK [employer]. NO OUTSIDE SERVICES RECIEVED. HAS A CPAP MACHINE AND A GLUCOMETER. Smoking Status: Never smoker Past Alcohol Use History: Rare Past Drug Use History: None Reported - Past Family History Mother Family Medical History: Renal Disease (Mother at age of 59 from acute renal failure and she had a stroke) Additional Family Medical History / Comment(s): Mother at age 59 from acute renal failure and she had a stroke. Father Family Medical History: Diabetes Mellitus (Father at age 71 from the hypertension diabetes and he had broken heart syndrome), Hypertension Additional Family Medical History / Comment(s): Father at age 71 from hypertension, diabetes and had a broken heart syndrome. Brother(s) Family Medical History: Cancer Sister(s) Family Medical History: Myocardial Infarction ([place]) Additional Family Medical History / Comment(s): Patient has 3 sisters and 2 of them are diabetic. Son(s) Family Medical History: No Reported History (Patient has 4 sons no major medical problems) Additional Family Medical History / Comment(s): Patient has 4 sons with no major medical problems. Daughter(s) Family Medical History: Deep Vein Thrombosis (DVT) Additional Family Medical History / Comment(s): Patient has a daughter with DVT. Medications and Allergies Home Medications Medication Instructions Recorded Confirmed Type Sertraline [Zoloft] 200 mg PO HS 03/07/15 10/20/16 History Atorvastatin [Lipitor] 40 mg PO HS 02/10/16 10/20/16 History HYDROcodone/APAP 7.5-325MG [[place] 1 tab PO QID PRN 02/10/16 10/20/16 History 7.5-325] Lisinopril 10 mg PO DAILY 02/10/16 10/20/16 History Glimepiride [Amaryl] 2 mg PO BID 08/17/16 10/20/16 History Levothyroxine Sodium [Synthroid] 137 mcg PO DAILY 08/17/16 10/20/16 History Warfarin [Coumadin] 15 mg PO HS 10/20/16 10/20/16 History Allergies Allergy/AdvReac Type Severity Reaction Status Date / Time No Known Allergies Allergy Verified 10/20/16 14:53 Physical Exam Vitals: Vital Signs Temp Pulse Pulse Pulse Resp BP Pulse Ox 10/24/16 07:00 98.8 F 68 22 118/55 95 10/23/16 22:40 97.8 F 76 20 121/63 95 10/23/16 14:54 97.0 F L 74 16 118/70 97 10/23/16 11:27 97.2 F L 68 16 125/59 97 Intake and Output 10/23/16 10/24/16 10/24/16 22:59 06:59 14:59 Intake Total 700 100 Balance 700 100 Intake: Oral 700 100 Other: Voiding Method Toilet # Voids 1 1 - Constitutional General appearance: cooperative, no acute distress, obese - EENT Eyes: anicteric sclerae, EOMI, PERRLA, normal appearance ENT: hearing grossly normal - Neck Neck: no lymphadenopathy - Respiratory Respiratory: bilateral: CTA - Cardiovascular Heart sounds: normal: S1, S2 leg Peripheral Edema: bilateral: None - Gastrointestinal General gastrointestinal: no absent bowel sounds, no decreased bowel sounds, no distended, no hepatomegaly, no hyperactive bowel sounds, normal bowel sounds, no organomegaly, no rigid, no scaphoid, soft, no splenomegaly, no tenderness, no umbilical hernia, no ventral hernia - Integumentary Integumentary: normal - Neurologic Neurologic: CNII-XII intact - Musculoskeletal Musculoskeletal: strength equal bilaterally - Psychiatric Psychiatric: A&O x's 3, appropriate affect, intact judgment & insight Results CBC & Chem 7: 10/24/16 07:34 10/24/16 07:34 Labs: Abnormal Lab Results - Last 24 Hours (Table) 10/23/16 10/23/16 10/23/16 Range/Units 12:37 16:57 20:46 Lymphocytes # (1.0-4.8) k/uL PT (9.0-12.0) sec Glucose (74-99) mg/dL POC Glucose (mg/dL) 145 H 104 H 197 H (75-99) mg/dL Calcium (8.4-10.2) mg/dL Total Bilirubin (0.2-1.3) mg/dL AST (14-36) U/L Alkaline Phosphatase (38-126) U/L Total Protein (6.3-8.2) g/dL Albumin (3.5-5.0) g/dL 10/24/16 10/24/16 10/24/16 Range/Units 07:16 07:34 07:34 Lymphocytes # 0.4 L (1.0-4.8) k/uL PT 14.0 H (9.0-12.0) sec Glucose (74-99) mg/dL POC Glucose (mg/dL) 113 H (75-99) mg/dL Calcium (8.4-10.2) mg/dL Total Bilirubin (0.2-1.3) mg/dL AST (14-36) U/L Alkaline Phosphatase (38-126) U/L Total Protein (6.3-8.2) g/dL Albumin (3.5-5.0) g/dL 10/24/16 Range/Units 07:34 Lymphocytes # (1.0-4.8) k/uL PT (9.0-12.0) sec Glucose 110 H (74-99) mg/dL POC Glucose (mg/dL) (75-99) mg/dL Calcium 8.2 L (8.4-10.2) mg/dL Total Bilirubin 3.7 H (0.2-1.3) mg/dL AST 70 H (14-36) U/L Alkaline Phosphatase 241 H (38-126) U/L Total Protein 5.5 L (6.3-8.2) g/dL Albumin 2.7 L (3.5-5.0) g/dL CT scan - abdomen: report reviewed CT scan - pelvis: report reviewed US - abdomen: report reviewed Assessment and Plan (1) Mesenteric mass Narrative/Plan: Reviewed CT results with pt and case was discussed with GI. Biopsy is necessary to determine origin of mass. After discussion it is felt that least invasive procedure is favored so it was agreed that transfer to tertiary care facility for biopsy is the best option for the patient. Pt is in agreement with transfer, GI RN PATIENT SERVICES is planning for the same. Status: Acute
--- NOTE | 2016-10-24 10:25 | P.PN ---
Subjective Principal diagnosis: Mesenteric mass elevated liver enzymes 56-year-old female history of factor V Leiden Coumadin monitoring reevaluated today in regards to mesenteric mass per CT with elevated liver enzymes. Case was discussed with oncology service as well as with interventional radiology. Mesenteric mass is not amendable to IR intervention. Least invasive approach for tissue biopsy has been suggested such as endoscopic ultrasound this seems reasonable based on review of CT findings this morning with IR. General surgery following. Liver enzymes stable minimally improved; total bilirubin 3.7. AST 70. ALT 46. Alkaline phosphatase 241. INR 1.4. Tertiary care center transfer was discussed this morning at bedside in attendance with oncology. MRCP recommended in regards to elevated liver enzymes however tentatively on hold pending transfer to tertiary center. Objective - Vital Signs Vital signs: Vital Signs Temp 98.8 F 10/24/16 07:00 Pulse 68 10/24/16 07:00 Resp 22 10/24/16 07:00 BP 118/55 10/24/16 07:00 Pulse Ox 95 10/24/16 07:00 Intake & Output 10/23/16 10/24/16 10/24/16 18:59 06:59 18:59 Intake Total 800 450 Balance 800 450 Intake: Oral 800 450 Other: Voiding Method Toilet Toilet # Voids 1 1 - Exam General appearance: The patient is alert, oriented, in no acute distress. HET: Head is normocephalic and atraumatic. Pupils are equal and reactive. Oropharynx is clear without lesions. Neck: Supple without lymphadenopathy. Trachea midline. Heart: S1 S2. Regular rate and rhythm. Lungs: No crackles or wheezes are heard. Abdomen: Soft, mild tenderness in the midepigastrium, nondistended with bowel sounds. No peritoneal signs. No palpable organomegaly or masses. Extremities: Normal skin color and turgor. No cyanosis, rash, ulceration, clubbing, or edema. Radial and pedal pulses are 2/4 bilaterally. Neurological: No focal deficits. Strength and sensation are grossly intact. - Labs CBC & Chem 7: 10/24/16 07:34 10/24/16 07:34 Labs: Abnormal Lab Results - Last 24 Hours (Table) 10/23/16 10/23/16 10/23/16 Range/Units 12:37 16:57 20:46 Lymphocytes # (1.0-4.8) k/uL PT (9.0-12.0) sec Glucose (74-99) mg/dL POC Glucose (mg/dL) 145 H 104 H 197 H (75-99) mg/dL Calcium (8.4-10.2) mg/dL Total Bilirubin (0.2-1.3) mg/dL AST (14-36) U/L Alkaline Phosphatase (38-126) U/L Total Protein (6.3-8.2) g/dL Albumin (3.5-5.0) g/dL 10/24/16 10/24/16 10/24/16 Range/Units 07:16 07:34 07:34 Lymphocytes # 0.4 L (1.0-4.8) k/uL PT 14.0 H (9.0-12.0) sec Glucose (74-99) mg/dL POC Glucose (mg/dL) 113 H (75-99) mg/dL Calcium (8.4-10.2) mg/dL Total Bilirubin (0.2-1.3) mg/dL AST (14-36) U/L Alkaline Phosphatase (38-126) U/L Total Protein (6.3-8.2) g/dL Albumin (3.5-5.0) g/dL 10/24/16 Range/Units 07:34 Lymphocytes # (1.0-4.8) k/uL PT (9.0-12.0) sec Glucose 110 H (74-99) mg/dL POC Glucose (mg/dL) (75-99) mg/dL Calcium 8.2 L (8.4-10.2) mg/dL Total Bilirubin 3.7 H (0.2-1.3) mg/dL AST 70 H (14-36) U/L Alkaline Phosphatase 241 H (38-126) U/L Total Protein 5.5 L (6.3-8.2) g/dL Albumin 2.7 L (3.5-5.0) g/dL Assessment and Plan Plan: Impression: 1. Severe epigastric pain with CT of the abdomen indicating small bowel mesenteric mass without obstruction. 2. Elevated liver enzymes and hyperbilirubinemia with dilated CBD measuring 1.[address] History of cholecystectomy. 3. History of factor V Leiden anticoagulation on hold. Recommendations: 1. Least invasive approach for tissue diagnosis is supported. CT imaging reviewed with Dr. Beatty this morning. EUS is a reasonable approach for attempted tissue diagnosis. Case was discussed with Dr. Alvarez at bedside with patient this morning. Recommended transfer to tertiary care center for further workup of mesenteric mass and EUS. We'll hold off on MRCP and deferr to tertiary center for continued workup of elevated liver enzymes as indicated. Assessment and plan of care discussed with Dr. Hunt.
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
[2016-10-24 12:12] LABS: Glucose,Whole Blood 183 mg/dL (75-99)
--- NOTE | 2016-10-24 13:06 | P.PN ---
Subjective Principal diagnosis: Abdominal pain Patient without new complaints. Pain anxious seems to be slightly better. Bilirubin is improved at 3.7. White blood cell count 4.5. Hemoglobin 12.3. Objective - Vital Signs Vital signs: Vital Signs Temp 98.8 F 10/24/16 07:00 Pulse 68 10/24/16 07:00 Resp 22 10/24/16 07:00 BP 118/55 10/24/16 07:00 Pulse Ox 95 10/24/16 07:00 Intake & Output 10/23/16 10/24/16 10/24/16 18:59 06:59 18:59 Intake Total 800 450 Balance 800 450 Intake: Oral 800 450 Other: Voiding Method Toilet Toilet # Voids 1 1 - Exam Abdomen: Soft, nondistended, mild upper abdominal tenderness - Labs CBC & Chem 7: 10/24/16 07:34 10/24/16 07:34 Labs: Abnormal Lab Results - Last 24 Hours (Table) 10/23/16 10/23/16 10/24/16 Range/Units 16:57 20:46 07:16 Lymphocytes # (1.0-4.8) k/uL PT (9.0-12.0) sec Glucose (74-99) mg/dL POC Glucose (mg/dL) 104 H 197 H 113 H (75-99) mg/dL Calcium (8.4-10.2) mg/dL Total Bilirubin (0.2-1.3) mg/dL AST (14-36) U/L Alkaline Phosphatase (38-126) U/L Total Protein (6.3-8.2) g/dL Albumin (3.5-5.0) g/dL 10/24/16 10/24/16 10/24/16 Range/Units 07:34 07:34 07:34 Lymphocytes # 0.4 L (1.0-4.8) k/uL PT 14.0 H (9.0-12.0) sec Glucose 110 H (74-99) mg/dL POC Glucose (mg/dL) (75-99) mg/dL Calcium 8.2 L (8.4-10.2) mg/dL Total Bilirubin 3.7 H (0.2-1.3) mg/dL AST 70 H (14-36) U/L Alkaline Phosphatase 241 H (38-126) U/L Total Protein 5.5 L (6.3-8.2) g/dL Albumin 2.7 L (3.5-5.0) g/dL 10/24/16 Range/Units 12:07 Lymphocytes # (1.0-4.8) k/uL PT (9.0-12.0) sec Glucose (74-99) mg/dL POC Glucose (mg/dL) 183 H (75-99) mg/dL Calcium (8.4-10.2) mg/dL Total Bilirubin (0.2-1.3) mg/dL AST (14-36) U/L Alkaline Phosphatase (38-126) U/L Total Protein (6.3-8.2) g/dL Albumin (3.5-5.0) g/dL Assessment and Plan (1) Epigastric pain Narrative/Plan: Agree with plans for tertiary care evaluations/endoscopic ultrasound. Status: Acute
[2016-10-24 17:04] LABS: Glucose,Whole Blood 86 mg/dL (75-99)
[2016-10-24 20:53] LABS: Glucose,Whole Blood 190 mg/dL (75-99)
[2016-10-24] MEDS: ATORVASTATIN 40 MG TAB PO SCH (20:57)
[2016-10-24] MEDS: SERTRALINE 100 MG TAB PO SCH (20:58)
[2016-10-24] MEDS: PHYTONADIONE ORAL 5 MG/5 ML ORAL.SYRG PO SCH (21:14)
[2016-10-25] MEDS: NITROGLYCERIN OINT 1 INCH/GM PACKET TOPICAL SCH ×2 (05:51→12:00)
[2016-10-25] MEDS: LEVOTHYROXINE 137 MCG TAB PO SCH (06:42)
[2016-10-25 07:21] LABS: Glucose,Whole Blood 149 mg/dL (75-99)
[2016-10-25 07:34] VITALS: BP 132/66; PULSE 64; RESP 22; TEMP 98.4
[2016-10-25] MEDS: INSULIN LISPRO (humaLOG) 300 UNIT/3 ML VIAL SQ SCH ×2 (08:23→12:00)
[2016-10-25] MEDS: PANTOPRAZOLE 40 MG/10 ML VIAL IVP SCH (08:23)
[2016-10-25] MEDS: ASPIRIN 325 MG TAB PO SCH (08:23)
[2016-10-25] MEDS: SUCRALFATE 1 GM TAB PO SCH ×2 (08:23→12:01)
[2016-10-25] MEDS ORDERED: oxyCODONE-APAP 7.5-325MG 1 EACH TAB PO PRN (08:23)
[2016-10-25] MEDS: LISINOPRIL 10 MG TAB PO SCH (08:23)
[2016-10-25] MEDS ORDERED: PANTOPRAZOLE 40 MG TABLET PO SCH (08:30)
[2016-10-25 09:03] LABS: CHCM 35.4; HCT 37.2 % (34.0-46.0); HDW 3.29; HGB 12.7 gm/dL (11.4-16.0); MCH 30.9 pg (25.0-35.0); MCV 90.6 fL (80.0-100.0); Mean Platelet Volume 6.5; RDW 13.5 % (11.5-15.5); WBC 4.6 k/uL (3.8-10.6)
[2016-10-25 09:09] LABS: INR 1.1 (<1.1); Prothrombin Time 11.2 sec (9.0-12.0)
[2016-10-25 09:38] LABS: ALT 48 U/L (9-52); AST 67 U/L (14-36); Alkaline Phosphatase 294 U/L (38-126); Anion Gap 9 mmol/L; Blood Urea Nitrogen 10 mg/dL (7-17); Calcium 8.2 mg/dL (8.4-10.2); Carbon Dioxide 25 mmol/L (22-30); Chloride 104 mmol/L (98-107); Glucose 166 mg/dL (74-99); Non-African American GFR(MDRD) >60 (>60 ml/min/1.73 sqM); Potassium 3.7 mmol/L (3.5-5.1); Sodium 138 mmol/L (137-145); Total Bilirubin 2.4 mg/dL (0.2-1.3); Total Protein 5.5 g/dL (6.3-8.2)
--- NOTE | 2016-10-25 10:23 | P.PN ---
Subjective This is a 55-year-old female one of Dr. Avila with a previous medical history significant for hypertension and hypertensive cardiovascular disease with left ventricular hypertrophy, hyperkalemia, factor V Leiden homozygous, previous DVTs diabetes mellitus type 2, osteoarthritis, hypothyroidism obesity with obstructive sleep apnea. Patient was last hospitalized in 08/18/2016 secondary to chest pain. He was seen by cardiology at that time, however she was counseled on a stress test that could be done as an outpatient, stress test was not performed during the last visit secondary to her uncontrolled headache, it turned out to be occipital neuralgia requiring occipital nerve block by anesthesia pain management. She did not follow-up with the obstetrician for her stress test. Patient gives history that she was at [facility] January 2016 and spent 3 weeks in the intensive care unit. She states she was treated for left DVT and had 2 stents placed. She was also treated for bacteremia. Patient was started on Coumadin. Echocardiogram at that time shows ejection fraction of 50- 55% with mild concentric LVH and mild aortic valve sclerosis without stenosis mild mitral regurgitation and mild tricuspid regurgitation and mild pulmonary hypertension She presented the emergency room secondary to epigastric discomfort which started the day of admission, without relief, she tried Pepto-Bismol, hydrocodone, Tums are not helpful, her last colonoscopy was 5 years ago and was reported to be normal, patient did not have any EGD in the past the patient denies any diarrhea, no recent NSAID use, no melena and hematochezia patient currently still in significant pain, without relief, IV Dilaudid has to be given for comfort, 10/22: Patient's epigastric and upper quadrant pain still is persistent patient cannot be made comfortable, CAT scan of the abdomen and pelvis was requested to evaluate for any ischemic bowel, maintained on PPIs and H2 blockers, abdominal ultrasound failed to reveal any abnormal pathology, 11 mm common bile duct as expected from cholecystectomy, Dr. Wilkerson was consulted for general surgery, discuss case with Dr. Wilkerson, Coumadin on hold with possibility of endoscopy in the morning 10/23: CAT scan of the abdomen and pelvis with contrast reveals a large complex mixed density mesenteric mass that is new compared to old CAT scan. Splenomegaly and varices are present probably due to portal venous hypertension. Consult with Dr. Alvarez added. Liver function tests are elevated with a total bilirubin of 4.4, AST 87, ALT 54, alkaline phosphatase 204. 6/13: Patient has been seen in consultation by Dr. Alvarez with recommendations for transfer to tertiary care center for further workup of mesenteric mass and EUS. Patient is in agreement with transfer. However, insurance was not accepted at [facility]. It was determined the patient will go home and follow- up as an outpatient for further evaluation. Objective - Vital Signs Vital signs: Vital Signs Temp 98.4 F 10/25/16 07:00 Pulse 64 10/25/16 07:00 Resp 22 10/25/16 07:00 BP 132/66 10/25/16 07:00 Pulse Ox 96 10/25/16 07:00 Intake & Output 10/24/16 10/25/16 10/25/16 18:59 06:59 18:59 Intake Total 450 Balance 450 Intake: Oral 450 Other: Voiding Method Toilet # Voids 2 2 - Exam General appearance: Present: cooperative, no acute distress, obese - EENT Eyes: Present: anicteric sclerae, EOMI, PERRLA, poor dentition, normal appearance ENT: Present: hearing grossly normal, NA/AT, normal oropharynx - Neck Neck: Present: normal ROM - Respiratory Respiratory: bilateral: CTA, negative: diminished, dullness, rales, rhonchi, wheezing - Cardiovascular Rhythm: regular Heart sounds: normal: S1, S2 - Gastrointestinal General gastrointestinal: Present: soft, tenderness Localized gastrointestinal: tender: epigastric periumbilical - Integumentary Integumentary: Present: normal, normal turgor - Neurologic Neurologic: Present: CNII-XII intact - Musculoskeletal Musculoskeletal: Present: gait normal, strength equal bilaterally - Psychiatric Psychiatric: Present: A&O x's 3, appropriate affect, intact judgment & insight - Labs CBC & Chem 7: 10/25/16 08:25 10/25/16 08:25 Labs: Abnormal Lab Results - Last 24 Hours (Table) 10/24/16 10/24/16 10/25/16 Range/Units 12:07 20:50 07:18 Glucose (74-99) mg/dL POC Glucose (mg/dL) 183 H 190 H 149 H (75-99) mg/dL Calcium (8.4-10.2) mg/dL Total Bilirubin (0.2-1.3) mg/dL AST (14-36) U/L Alkaline Phosphatase (38-126) U/L Total Protein (6.3-8.2) g/dL Albumin (3.5-5.0) g/dL 10/25/16 Range/Units 08:25 Glucose 166 H (74-99) mg/dL POC Glucose (mg/dL) (75-99) mg/dL Calcium 8.2 L (8.4-10.2) mg/dL Total Bilirubin 2.4 H (0.2-1.3) mg/dL AST 67 H (14-36) U/L Alkaline Phosphatase 294 H (38-126) U/L Total Protein 5.5 L (6.3-8.2) g/dL Albumin 2.7 L (3.5-5.0) g/dL Assessment and Plan Plan: 1. Intractable epigastric abdominal pain most likely secondary to large complex mixed density mesenteric mass. Dr. Wilkerson is on consult and GI services. She is currently on clear liquid diet. MRCP has been ordered. Continue Dilaudid and [place] for pain control. Continue Zofran as needed for nausea. Continue Carafate. Coumadin remains on hold. Consult with oncology added 2. Diabetes mellitus type 2. Continue glimepiride 2 mg twice daily and Humalog scale before meals and at bedtime. 3. Hypertension and hypertensive cardio vascular disease. Continue lisinopril 10 mg daily. 4. Prior history of cholecystectomy secondary to gallbladder stones, abdominal ultrasound was requested to evaluate for common bile duct, 5. History of lower extremity DVT and had stent placement at [facility] with factor V deficiency currently on Coumadin. Continue Coumadin to maintain INR between 2 and 3. Recheck INR in the morning. Coumadin currently on hold. 7. Hyperlipidemia. Continue Lipitor 40 mg at bedtime 8. Obesity with obstructive sleep apnea. Continue CPAP. 9. Depression recurrent. Continue Zoloft 200 mg at bedtime. 10. Overactive bladder. Continue oxybutynin 5 mg daily. 11. DVT prophylaxis. Patient is therapeutic on Coumadin. 12. Gastrointestinal prophylaxis. Continue Pepcid. 11. History of bacteremia while hospitalized at [facility] 2016. Discharge plan: Return home Impression and plan of care have been directed as dictated by the signing physician. Lou Orellana nurse practitioner acting as scribe for signing physician.
--- NOTE | 2016-10-25 11:23 | P.PN ---
Subjective Principal diagnosis: Mesenteric mass elevated liver enzymes 56-year-old female history of factor V Leiden Coumadin monitoring reevaluated today in regards to mesenteric mass per CT with elevated liver enzymes. Case was discussed with oncology service as well as with interventional radiology yesterday. Mesenteric mass is not amendable to IR intervention. Least invasive approach for tissue biopsy has been suggested such as endoscopic ultrasound this seems reasonable based on review of CT findings this morning with IR. General surgery following. Liver enzymes stable improved; total bilirubin 2.4. AST 67. ALT 48. Alkaline phosphatase 294. INR 1.1. Tertiary care center transfer was discussed yesterday and unfortunately would not accept her insurance. Outpatient follow-up is being arranged. MRCP attempted the other day but incomplete secondary to body habitus. Objective - Vital Signs Vital signs: Vital Signs Temp 98.4 F 10/25/16 07:00 Pulse 64 10/25/16 07:00 Resp 22 10/25/16 07:00 BP 132/66 10/25/16 07:00 Pulse Ox 96 10/25/16 07:00 Intake & Output 10/24/16 10/25/16 10/25/16 18:59 06:59 18:59 Intake Total 450 Balance 450 Intake: Oral 450 Other: Voiding Method Toilet Toilet # Voids 2 2 - Exam General appearance: The patient is alert, oriented, in no acute distress. HET: Head is normocephalic and atraumatic. Pupils are equal and reactive. Oropharynx is clear without lesions. Neck: Supple without lymphadenopathy. Trachea midline. Heart: S1 S2. Regular rate and rhythm. Lungs: No crackles or wheezes are heard. Abdomen: Soft, mild tenderness in the midepigastrium, nondistended with bowel sounds. No peritoneal signs. No palpable organomegaly or masses. Extremities: Normal skin color and turgor. No cyanosis, rash, ulceration, clubbing, or edema. Radial and pedal pulses are 2/4 bilaterally. Neurological: No focal deficits. Strength and sensation are grossly intact. - Labs CBC & Chem 7: 10/25/16 08:25 10/25/16 08:25 Labs: Abnormal Lab Results - Last 24 Hours (Table) 10/24/16 10/24/16 10/25/16 Range/Units 12:07 20:50 07:18 Glucose (74-99) mg/dL POC Glucose (mg/dL) 183 H 190 H 149 H (75-99) mg/dL Calcium (8.4-10.2) mg/dL Total Bilirubin (0.2-1.3) mg/dL AST (14-36) U/L Alkaline Phosphatase (38-126) U/L Total Protein (6.3-8.2) g/dL Albumin (3.5-5.0) g/dL 10/25/16 Range/Units 08:25 Glucose 166 H (74-99) mg/dL POC Glucose (mg/dL) (75-99) mg/dL Calcium 8.2 L (8.4-10.2) mg/dL Total Bilirubin 2.4 H (0.2-1.3) mg/dL AST 67 H (14-36) U/L Alkaline Phosphatase 294 H (38-126) U/L Total Protein 5.5 L (6.3-8.2) g/dL Albumin 2.7 L (3.5-5.0) g/dL Assessment and Plan Plan: Impression: 1. Severe epigastric pain with CT of the abdomen indicating small bowel mesenteric mass without obstruction. 2. Elevated liver enzymes and hyperbilirubinemia with dilated CBD measuring 1.[address] History of cholecystectomy. Liver enzymes improving. MRCP attempted but incomplete secondary to body habitus. 3. History of factor V Leiden anticoagulation on hold. Recommendations: 1. Least invasive approach for tissue diagnosis is supported. EUS is a reasonable approach for attempted tissue diagnosis. Agree with outpatient tertiary care center for further workup of mesenteric mass and possible EUS. GI office will assist in arranging outpatient open MRCP after discharge. Assessment and plan of care discussed with Dr. Hunt.
[2016-10-25 12:05] LABS: Glucose,Whole Blood 188 mg/dL (75-99)
--- NOTE | 2016-10-25 13:05 | P.PN ---
Subjective Principal diagnosis: Abdominal pain Patient apparently was not transferred to [facility] yesterday because of insurance issues. Pain is now resolved. She is going home today. Objective - Vital Signs Vital signs: Vital Signs Temp 98.4 F 10/25/16 07:00 Pulse 64 10/25/16 07:00 Resp 22 10/25/16 07:00 BP 132/66 10/25/16 07:00 Pulse Ox 96 10/25/16 07:00 Intake & Output 10/24/16 10/25/16 10/25/16 18:59 06:59 18:59 Intake Total 450 Balance 450 Intake: Oral 450 Other: Voiding Method Toilet Toilet # Voids 2 2 - Exam Abdomen: Soft, nontender, nondistended - Labs CBC & Chem 7: 10/25/16 08:25 10/25/16 08:25 Labs: Abnormal Lab Results - Last 24 Hours (Table) 10/24/16 10/25/16 10/25/16 Range/Units 20:50 07:18 08:25 Glucose 166 H (74-99) mg/dL POC Glucose (mg/dL) 190 H 149 H (75-99) mg/dL Calcium 8.2 L (8.4-10.2) mg/dL Total Bilirubin 2.4 H (0.2-1.3) mg/dL AST 67 H (14-36) U/L Alkaline Phosphatase 294 H (38-126) U/L Total Protein 5.5 L (6.3-8.2) g/dL Albumin 2.7 L (3.5-5.0) g/dL 10/25/16 Range/Units 11:58 Glucose (74-99) mg/dL POC Glucose (mg/dL) 188 H (75-99) mg/dL Calcium (8.4-10.2) mg/dL Total Bilirubin (0.2-1.3) mg/dL AST (14-36) U/L Alkaline Phosphatase (38-126) U/L Total Protein (6.3-8.2) g/dL Albumin (3.5-5.0) g/dL Assessment and Plan (1) Epigastric pain Narrative/Plan: Agree with plans for discharge. Outpatient follow-up with GI, oncology, and primary service. Status: Acute
== END 2016-10-25 15:15 | disposition home or self-care (01) | DRG 392 ==
LOC: EC 13:52 → OBSVTOIN 17:14 → 3OBS 17:14 → 4MS4W 10-23 10:52
PROVIDERS: ADMIT Family Medicine; ATTEND Family Medicine
DX: R19.06 Epigastric swelling, mass or lump (principal); D68.51 Activated protein C resistance; F33.9 Major depressive disorder, recurrent, unspecified; K76.6 Portal hypertension; I27.2 Other secondary pulmonary hypertension; I11.9 Hypertensive heart disease without heart failure; Z68.41 Body mass index [BMI] 40.0-44.9, adult; E66.01 Morbid (severe) obesity due to excess calories; I08.3 Combined rheumatic disorders of mitral, aortic and tricuspid valves; K76.0 Fatty (change of) liver, not elsewhere classified; E11.9 Type 2 diabetes mellitus without complications; E78.5 Hyperlipidemia, unspecified; E66.9 Obesity, unspecified; G47.33 Obstructive sleep apnea (adult) (pediatric); N32.81 Overactive bladder; M19.91 Primary osteoarthritis, unspecified site; M54.81 Occipital neuralgia; E89.0 Postprocedural hypothyroidism; Z86.718 Personal history of other venous thrombosis and embolism; Z90.49 Acquired absence of other specified parts of digestive tract; Z90.710 Acquired absence of both cervix and uterus; Z79.84 Long term (current) use of oral hypoglycemic drugs; Z79.01 Long term (current) use of anticoagulants; Z79.899 Other long term (current) drug therapy
CPT/HCPCS: 36415; 71020; 74177; 76700; 80053; 80061; 81001; 82150; 82550; 82553; 83036; 83605; 83615; 83690; 83735; 84484; 85025; 85027; 85610; 85730; 93005; 94760; 96361; 96374; 96375; 96376; 99285

== ENCOUNTER → 2016-12-06 | Outpatient (CLI) | payer MEDICARE ==
[2016-12-06 21:02] LABS: ALT 41 U/L (9-52); AST 35 U/L (14-36); Alkaline Phosphatase 120 U/L (38-126); Anion Gap 7 mmol/L; Blood Urea Nitrogen 12 mg/dL (7-17); Calcium 9.1 mg/dL (8.4-10.2); Carbon Dioxide 28 mmol/L (22-30); Chloride 108 mmol/L (98-107); Glucose 129 mg/dL (74-99); Non-African American GFR(MDRD) >60 (>60 ml/min/1.73 sqM); Potassium 4.1 mmol/L (3.5-5.1); Sodium 143 mmol/L (137-145); Total Bilirubin 1.2 mg/dL (0.2-1.3); Total Protein 6.2 g/dL (6.3-8.2)
[2016-12-06 22:06] LABS: INR 5.6 (<1.2)
== END | disposition home or self-care (01) ==
LOC: MMGSC 09:38
PROVIDERS: ATTEND Family Medicine
DX: E03.9 Hypothyroidism, unspecified (principal); R19.06 Epigastric swelling, mass or lump; Z79.01 Long term (current) use of anticoagulants
CPT/HCPCS: 36415; 80053; 84439; 84443; 85610

== ENCOUNTER → 2016-12-11 | Outpatient (CLI) | payer MEDICARE ==
[2016-12-11 18:59] LABS: INR 1.2 (<1.2); Prothrombin Time 12.3 sec (9.0-12.0)
== END | disposition home or self-care (01) ==
LOC: MMGSC 12:03
PROVIDERS: ATTEND Family Medicine
DX: Z51.81 Encounter for therapeutic drug level monitoring (principal); Z79.01 Long term (current) use of anticoagulants
CPT/HCPCS: 36415; 85610

== ENCOUNTER → 2016-12-18 | Outpatient (CLI) | payer MEDICARE ==
[2016-12-18 19:07] LABS: INR 1.3 (<1.2); Prothrombin Time 12.9 sec (9.0-12.0)
== END | disposition home or self-care (01) ==
LOC: MMGSC 10:08
PROVIDERS: ATTEND Family Medicine
DX: Z51.81 Encounter for therapeutic drug level monitoring (principal); Z79.01 Long term (current) use of anticoagulants
CPT/HCPCS: 36415; 85610

== ENCOUNTER 2016-12-19 20:18 | Observation (INO) | payer MEDICARE ==
[2016-12-19] MEDS ORDERED: SODIUM CHLORIDE 0.9% 1,000 ML IV STA ×2 (21:17)
[2016-12-19] MEDS ORDERED: ONDANSETRON 4 MG/2 ML VIAL IVP STA (21:17)
[2016-12-19] MEDS ORDERED: RX INFO: IV CONTRAST WAS GIVEN 1 EACH MISC MISCELLANE PRN (21:17)
[2016-12-19] MEDS ORDERED: HYDROmorphone 1 MG/ML 1 ML SYRINGE IVP STA (21:17)
[2016-12-19 22:25] LABS: Basophils % (A) 1 %; CH 30.8; CHCM 33.8; Eosinophils # (A) 0.2 k/uL (0-0.7); Eosinophils % (A) 6 %; HCT 39.6 % (34.0-46.0); HDW 2.85; HGB 13.4 gm/dL (11.4-16.0); Luc # (Auto) 0.13; Luc % (Auto) 4; Lymphocytes % (A) 26 %; MCH 30.9 pg (25.0-35.0); MCHC 33.9 g/dL (31.0-37.0); MCV 91.4 fL (80.0-100.0); Mean Platelet Volume 7.4; Monocytes # (A) 0.3 k/uL (0-1.0); Monocytes % (A) 8 %; Neutrophils # (A) 2.1 k/uL (1.3-7.7); Neutrophils % (A) 56 %; RBC 4.33 m/uL (3.80-5.40); WBC 3.7 k/uL (3.8-10.6); WBC (Perox) 3.61
[2016-12-19 22:36] LABS: ALT 39 U/L (9-52); AST 31 U/L (14-36); Alkaline Phosphatase 115 U/L (38-126); Amylase <30 U/L (30-110); Anion Gap 8 mmol/L; Blood Urea Nitrogen 9 mg/dL (7-17); Carbon Dioxide 28 mmol/L (22-30); Chloride 107 mmol/L (98-107); Glucose 155 mg/dL (74-99); Non-African American GFR(MDRD) >60 (>60 ml/min/1.73 sqM); Potassium 4.2 mmol/L (3.5-5.1); Sodium 143 mmol/L (137-145); Total Bilirubin 0.7 mg/dL (0.2-1.3)
[2016-12-19 22:44] LABS: INR 1.4 (<1.2); Partial Thromboplastin Time 25.7 sec (22.0-30.0); Prothrombin Time 13.5 sec (9.0-12.0)
[2016-12-19 23:22] LABS: Appearance,Urine Clear (Clear); Bacteria,Urine Rare /hpf; Bilirubin,Urine Negative (Negative); Glucose,Urine (UA) Negative (Negative); Ketones,Urine Negative (Negative); Leukocyte Esterase,Urine Small (Negative); Mucus,Urine Rare /hpf; Nitrite,Urine Negative (Negative); PH, Urine 6.5 (5.0-8.0); Particle Count 1613; Protein,Urine Negative (Negative); RBC,Urine 2 /hpf (0-5); Specific Gravity,Urine 1.014 (1.001-1.035); Squamous Epithelial Cell,Urine 1 /hpf (0-4); UA Billing (MACRO vs. MICRO) MICRO; WBC,Urine 6 /hpf (0-5)
--- NOTE | 2016-12-20 00:23 | CT ---
EXAM: CT Abdomen and Pelvis With Intravenous Contrast CLINICAL HISTORY: Reason: abdominal pain TECHNIQUE: Axial computed tomography images of the abdomen and pelvis with intravenous contrast. CTDI is 48.30 mGy and DLP is 2128.70 mGy-cm. This CT exam was performed using one or more of the following dose reduction techniques: automated exposure control, adjustment of the mA and/or kV according to patient size, and/or use of iterative reconstruction technique. COMPARISON: 10/22/16 CT 2120.70 FINDINGS: Lower thorax: No acute findings. ABDOMEN: Liver: Unremarkable. No mass. Gallbladder and bile ducts: Unremarkable. No calcified stones. No ductal dilation. Pancreas: Unremarkable. No mass. No ductal dilation. Spleen: Unremarkable. No splenomegaly. Adrenals: Unremarkable. No mass. Kidneys and ureters: Exophytic left upper renal cyst. No obstructive uropathy. Stomach and bowel: Scattered colonic diverticula distally. No acute diverticulitis. No appendicitis or colitis. No bowel obstruction. Small duodenal diverticula incidentally noted. Appendix: See above. PELVIS: Bladder: Unremarkable. No mass. Reproductive: Unremarkable as visualized. ABDOMEN and PELVIS: Intraperitoneal space: Unremarkable. No free air. No significant fluid collection. Bones/joints: No acute fracture. No dislocation. Soft tissues: Unremarkable. Vasculature: Unremarkable. No abdominal aortic aneurysm. Lymph nodes: Central mesenteric mass redemonstrated (9.5 x 8.1 cm) and appears appears overall smaller with less surrounding stranding and decreased low density component. Appearance is nonspecific. Consider lymphoma, sarcoma or metastases tinning a few differential considerations. IMPRESSION: Central mesenteric mass redemonstrated and appears overall smaller with less surrounding stranding and decreased low density component. Appearance is nonspecific. Consider lymphoma, sarcoma or metastases tinning a few differential considerations. No acute or inflammatory disease or bowel obstruction. [employer] 12/20/16 00:41 Verify Receipt Verified receipt with on 12/20 00:41 (-04:00)
--- NOTE | 2016-12-20 00:34 | ED ---
Abdominal Pain HPI - General Chief Complaint: Abdominal Pain Stated Complaint: Abd Pain Time Seen by Provider: 12/19/16 20:38 Source: patient, RN notes reviewed, old records reviewed Mode of arrival: ambulatory Limitations: no limitations - History of Present Illness Initial Comments: This is a 48-year-old female chief complaint of epigastric pain for the past month. She reports that she was told she has a mass in her epigastric area. She reports that he was to have this further evaluated but was not able to transfer to [facility]. Patient ports that she's had severe diarrhea over the past few days as well as multiple episodes of vomiting. Patient states that she was supposed to have some biopsies done. She reports that she also followed up outpatient with Dr. Gallagher. They state that they have followed up with Dr. Gallagher and that if the pain got worse that she needed to return to the emergency department. She denies any specific fever or chills. - Related Data Home Medications Medication Instructions Recorded Confirmed Sertraline [Zoloft] 200 mg PO HS 03/07/15 12/19/16 Atorvastatin [Lipitor] 40 mg PO DAILY 02/10/16 12/19/16 Lisinopril 10 mg PO DAILY 02/10/16 12/19/16 Levothyroxine Sodium [Synthroid] 137 mcg PO DAILY 08/17/16 12/19/16 Cranberry/Vit C 4200mg 1 tab PO DAILY PRN 12/19/16 12/19/16 Glimepiride [Amaryl] 2 mg PO BID 12/19/16 12/19/16 HYDROcodone/APAP 10-325MG [[place] 1 tab PO Q6H PRN 12/19/16 12/19/16 10-325] Tolterodine ER [Detrol LA] 4 mg PO DAILY 12/19/16 12/19/16 Warfarin [Coumadin] 15 mg PO HS@1800 12/19/16 12/19/16 Previous Rx's Medication Instructions Recorded Pantoprazole [Protonix] 40 mg PO AC-BID #60 tab 10/25/16 Allergies Allergy/AdvReac Type Severity Reaction Status Date / Time Anesthetics - Amide Type AdvReac Nausea & Verified 12/19/16 20:59 Vomiting & Diarrhea Anesthetics - Jonna Type- AdvReac Nausea & Verified 12/19/16 20:59 Parabens Vomiting & Diarrhea Review of Systems ROS Statement: Those systems with pertinent positive or pertinent negative responses have been documented in the HPI. ROS Other: All systems not noted in ROS Statement are negative. Past Medical History Past Medical History: Chest Pain / Angina, Diabetes Mellitus, Deep Vein Thrombosis (DVT), Hyperlipidemia, Hypertension, Sleep Apnea/CPAP/BIPAP Additional Past Medical History / Comment(s): Obesity, LLE DVT on coumadine since November 13 2015, varicose veins, hx cellulitis left leg, Left Lower extremity DVT with vascular intervention ? stent insertion/thrombolytics, hypertension, hyperlipidemia, DM and Factor V leiden (homozygous), hypothyroidism (post thyroidectomy for a massive goiter). stated had a pne vaccine not sure of date History of Any Multi-Drug Resistant Organisms: None Reported Past Surgical History: Adenoidectomy, Appendectomy, Back Surgery, Cholecystectomy, Hysterectomy, Orthopedic Surgery, Tonsillectomy Additional Past Surgical History / Comment(s): carpal tunnel bilateral, thyroidectomy, ORIF rt ankle, stents in LLE/vascular stent Past Anesthesia/Blood Transfusion Reactions: Postoperative Nausea & Vomiting ( PONV) Additional Past Anesthesia/Blood Transfusion Reaction / Comment(s): blood transfusion(December 2015)"pt stated an hour after transfusion became very nauseated and had quit a bit of vomiting" Past Psychological History: Depression Smoking Status: Never smoker Past Alcohol Use History: None Reported Past Drug Use History: None Reported - Past Family History Mother Family Medical History: Renal Disease (Mother at age of 59 from acute renal failure and she had a stroke) Additional Family Medical History / Comment(s): Mother at age 59 from acute renal failure and she had a stroke. Father Family Medical History: Diabetes Mellitus (Father at age 71 from the hypertension diabetes and he had broken heart syndrome), Hypertension Additional Family Medical History / Comment(s): Father at age 71 from hypertension, diabetes and had a broken heart syndrome. Brother(s) Family Medical History: Cancer Sister(s) Family Medical History: Myocardial Infarction ([place]) Additional Family Medical History / Comment(s): Patient has 3 sisters and 2 of them are diabetic. Son(s) Family Medical History: No Reported History (Patient has 4 sons no major medical problems) Additional Family Medical History / Comment(s): Patient has 4 sons with no major medical problems. Daughter(s) Family Medical History: Deep Vein Thrombosis (DVT) Additional Family Medical History / Comment(s): Patient has a daughter with DVT. General Exam - General Exam Comments Initial Comments: 48-year-old female. Patient appears in moderate discomfort. Limitations: no limitations General appearance: alert, in no apparent distress Head exam: Present: atraumatic, normocephalic, normal inspection Eye exam: Present: normal appearance, PERRL, EOMI. Absent: scleral icterus, conjunctival injection, periorbital swelling ENT exam: Present: normal exam, mucous membranes moist Neck exam: Present: normal inspection. Absent: tenderness, meningismus, lymphadenopathy Respiratory exam: Present: normal lung sounds bilaterally. Absent: respiratory distress, wheezes, rales, rhonchi, stridor Cardiovascular Exam: Present: regular rate, normal rhythm, normal heart sounds. Absent: systolic murmur, diastolic murmur, rubs, gallop, clicks GI/Abdominal exam: Present: soft, tenderness (Severe epigastric tenderness.), normal bowel sounds. Absent: distended, guarding, rebound, rigid Extremities exam: Present: normal inspection, full ROM, normal capillary refill. Absent: tenderness, pedal edema, joint swelling, calf tenderness Back exam: Present: normal inspection Neurological exam: Present: alert, oriented X3, CN II-XII intact Psychiatric exam: Present: normal affect, normal mood Skin exam: Present: warm, dry, intact, normal color. Absent: rash Course Vital Signs 12/19/16 12/19/16 12/20/16 20:23 23:34 00:38 Temperature 97.7 F 97.6 F 98.0 F Pulse Rate 88 70 69 Pulse Rate [ Pulse Oximetery ] Respiratory 18 20 16 Rate Blood Pressure 136/68 166/86 153/77 Blood Pressure [Right Arm] O2 Sat by Pulse 96 95 97 Oximetry 12/20/16 12/20/16 12/20/16 01:40 02:25 02:41 Temperature 97.8 F 97.7 F Pulse Rate 69 Pulse Rate [ 68 Pulse Oximetery ] Respiratory 18 20 Rate Blood Pressure 159/83 Blood Pressure 164/80 [Right Arm] O2 Sat by Pulse 98 96 96 Oximetry Medical Decision Making - Medical Decision Making This is a 48-year-old female chief complaint of epigastric pain for the past month. She reports that she was told she has a mass in her epigastric area. She reports that he was to have this further evaluated but was not able to transfer to [facility]. Patient ports that she's had severe diarrhea over the past few days as well as multiple episodes of vomiting. Patient's lab work was reviewed and is relatively benign. Patient was reevaluated and reports that her pain is continuing to worsen. CAT scan was reviewed and showed moderate stranding and 88.5 x 9.1 cm abdomen mass in the epigastric region of the abdomen. Discussed case with Dr. Roth. It is appropriate to admit the patient evaluation. Consultation to Dr. Gallagher. - Lab Data Result diagrams: 12/19/16 22:15 12/19/16 22:15 Lab Results 12/19/16 12/19/16 12/19/16 Range/Units 22:15 22:15 22:15 WBC 3.7 L (3.8-10.6) k/uL RBC 4.33 (3.80-5.40) m/uL Hgb 13.4 (11.4-16.0) gm/dL Hct 39.6 (34.0-46.0) % MCV 91.4 (80.0-100.0) fL MCH 30.9 (25.0-35.0) pg MCHC 33.9 (31.0-37.0) g/dL RDW 13.0 (11.5-15.5) % Plt Count 131 L (150-450) k/uL Neutrophils % 56 % Lymphocytes % 26 % Monocytes % 8 % Eosinophils % 6 % Basophils % 1 % Neutrophils # 2.1 (1.3-7.7) k/uL Lymphocytes # 1.0 (1.0-4.8) k/uL Monocytes # 0.3 (0-1.0) k/uL Eosinophils # 0.2 (0-0.7) k/uL Basophils # 0.0 (0-0.2) k/uL PT (9.0-12.0) sec INR (<1.2) APTT (22.0-30.0) sec Sodium 143 (137-145) mmol/L Potassium 4.2 (3.5-5.1) mmol/L Chloride 107 (98-107) mmol/L Carbon Dioxide 28 (22-30) mmol/L Anion Gap 8 mmol/L BUN 9 (7-17) mg/dL Creatinine 0.70 (0.52-1.04) mg/dL Est GFR (MDRD) Af Amer >60 (>60 ml/min/1.73 sqM) Est GFR (MDRD) Non-Af >60 (>60 ml/min/1.73 sqM) Glucose 155 H (74-99) mg/dL Calcium 9.0 (8.4-10.2) mg/dL Total Bilirubin 0.7 (0.2-1.3) mg/dL AST 31 (14-36) U/L ALT 39 (9-52) U/L Alkaline Phosphatase 115 (38-126) U/L Troponin I <0.012 (0.000-0.034) ng/mL Total Protein 6.0 L (6.3-8.2) g/dL Albumin 3.4 L (3.5-5.0) g/dL Amylase <30 L (30-110) U/L Lipase 190 (23-300) U/L Urine Color Urine Appearance (Clear) Urine pH (5.0-8.0) Ur Specific Joaquin (1.001-1.035) Urine Protein (Negative) Urine Glucose (UA) (Negative) Urine Ketones (Negative) Urine Blood (Negative) Urine Nitrite (Negative) Urine Bilirubin (Negative) Urine Urobilinogen (<2.0) mg/dL Ur Leukocyte Esterase (Negative) Urine RBC (0-5) /hpf Urine WBC (0-5) /hpf Ur Squamous Epith Cells (0-4) /hpf Urine Bacteria (None) /hpf Urine Mucus (None) /hpf 12/19/16 12/19/16 Range/Units 22:15 22:38 WBC (3.8-10.6) k/uL RBC (3.80-5.40) m/uL Hgb (11.4-16.0) gm/dL Hct (34.0-46.0) % MCV (80.0-100.0) fL MCH (25.0-35.0) pg MCHC (31.0-37.0) g/dL RDW (11.5-15.5) % Plt Count (150-450) k/uL Neutrophils % % Lymphocytes % % Monocytes % % Eosinophils % % Basophils % % Neutrophils # (1.3-7.7) k/uL Lymphocytes # (1.0-4.8) k/uL Monocytes # (0-1.0) k/uL Eosinophils # (0-0.7) k/uL Basophils # (0-0.2) k/uL PT 13.5 H (9.0-12.0) sec INR 1.4 H (<1.2) APTT 25.7 (22.0-30.0) sec Sodium (137-145) mmol/L Potassium (3.5-5.1) mmol/L Chloride (98-107) mmol/L Carbon Dioxide (22-30) mmol/L Anion Gap mmol/L BUN (7-17) mg/dL Creatinine (0.52-1.04) mg/dL Est GFR (MDRD) Af Amer (>60 ml/min/1.73 sqM) Est GFR (MDRD) Non-Af (>60 ml/min/1.73 sqM) Glucose (74-99) mg/dL Calcium (8.4-10.2) mg/dL Total Bilirubin (0.2-1.3) mg/dL AST (14-36) U/L ALT (9-52) U/L Alkaline Phosphatase (38-126) U/L Troponin I (0.000-0.034) ng/mL Total Protein (6.3-8.2) g/dL Albumin (3.5-5.0) g/dL Amylase (30-110) U/L Lipase (23-300) U/L Urine Color Yellow Urine Appearance Clear (Clear) Urine pH 6.5 (5.0-8.0) Ur Specific [place] 1.014 (1.001-1.035) Urine Protein Negative (Negative) Urine Glucose (UA) Negative (Negative) Urine Ketones Negative (Negative) Urine Blood Negative (Negative) Urine Nitrite Negative (Negative) Urine Bilirubin Negative (Negative) Urine Urobilinogen 6.0 (<2.0) mg/dL Ur Leukocyte Esterase Small H (Negative) Urine RBC 2 (0-5) /hpf Urine WBC 6 H (0-5) /hpf Ur Squamous Epith Cells 1 (0-4) /hpf Urine Bacteria Rare H (None) /hpf Urine Mucus Rare H (None) /hpf - Radiology Data Radiology results: report reviewed CT shows central mesenteric mass redemonstrated and appears overall smaller his cholesterol extremity decreased low-density. Appearance is nonspecific. Lipomatous her lumbar metastases or tingling differential considerations. The area measures 9.5 x 8.1 cm. Disposition Clinical Impression: Epigastric mass, Abdominal pain, Diarrhea Disposition: ADMITTED IP TO THIS HOSP Condition: Stable Referrals: Obdulia Jasso MD [Primary Care Provider] - 1-2 days Time of Disposition: 01:11
[2016-12-20] MEDS ORDERED: KETOROLAC 30 MG/ML 1 ML VIAL IVP PRN (01:11)
[2016-12-20] MEDS ORDERED: NALOXONE 0.4 MG/ML 1 ML VIAL IV PRN (01:11)
[2016-12-20] MEDS ORDERED: HYDROmorphone 1 MG/ML 1 ML SYRINGE IV PRN (01:11)
[2016-12-20] MEDS: SODIUM CHLORIDE 0.9% 1,000 ML IV SCH ×3 (02:05→19:58)
[2016-12-20] MEDS ORDERED: CRANBERRY PO PRN (02:31)
[2016-12-20] MEDS ORDERED: HYDROcodone/APAP 10-325MG 1 EACH TAB PO PRN (02:31)
[2016-12-20] MEDS ORDERED: VIT C PO PRN (02:31)
[2016-12-20] MEDS ORDERED: ACETAMINOPHEN TAB 325 MG TAB PO PRN (02:40)
[2016-12-20] MEDS ORDERED: SERTRALINE 100 MG TAB PO ONE (02:53)
[2016-12-20] MEDS: HYDROmorphone 1 MG/ML 1 ML SYRINGE IV PRN ×5 (05:18→23:28)
[2016-12-20] MEDS: LEVOTHYROXINE 137 MCG TAB PO SCH (05:19)
[2016-12-20 07:58] LABS: Glucose,Whole Blood 87 mg/dL (75-99)
--- NOTE | 2016-12-20 08:29 | P.HPIM ---
History of Present Illness H&P Date: 12/20/16 Chief Complaint: Abdominal pain This patient is a 56 years old female with history of factor V Leiden deficiency /DVT on chronic Coumadin therapy, whether recent admission for similar abdominal pain that was started in October 2016, previous workup showed mesenteric mass With surrounding stranding, patient was scheduled and sent home with a follow- up with oncology, GI Dr. Hunt as well as her PCP, patient was supposed to be seen at [facility] for biopsy of her mass, however that was not possible due to insurance issues, they were told that [facility] might take their insurance, however patient could not wait on developed severe worsening of her abdominal epigastric pain which was 10 out of 10 with no radiation associated with nausea and vomiting and decreased by mouth intake s severe diarrhea, patient was seen by Dr. Hunt on Dr. Alvarez on previous admission. Patient had repeat computed tomography scan which showed persistence of mesenteric mass with surrounding stranding, no obstruction was noted. l Review of Systems Constitutional: Patient reports no fever, no chills, no weight changes, no change in appetite Eyes: Patient reports no double vision, no visual changes ENT: Patient reports no rhinorrhea, no post nasal drip, no sore throat Cardiovascular: Patient reports no chest, no edema, no palpitations, no syncope , no orthopnea, no paroxysmal nocturnal dyspnea. Respiratory: Patient reports no dyspnea, no cough, no wheeze Gastrointestinal: Patient reports abd pain, nausea, vomiting and diarrhea Genitourinary: Patient reports no dysuria, no urinary frequency, no hematuria. Musculoskeletal: Patient reports no unusual joint pain, no joint swelling or weakness. Patient reports no muscular pain. Psychiatric: Patient reports no changes in mood, no sleeping problems. Patient reports no changes in memory. Endocrine: Patient reports no thirst, no polyuria, no cold intolerance, no heat intolerance. Neurological: Patient reports no unusual paresthesias, no seizures, no paresis , no paralysis, no facila droop, no headache. Heme/Lymphatic: Patient reports no easy bruising, no bleeding tendency, no lymphadenopathy. Allergic/ Immunologic: Patient reports no recent allergic reactions or immunologic history. Skin: Patient reports no rashes or unusual lesions. Past Medical History Past Medical History: Chest Pain / Angina, Diabetes Mellitus, Deep Vein Thrombosis (DVT), Hyperlipidemia, Hypertension, Sleep Apnea/CPAP/BIPAP Additional Past Medical History / Comment(s): Obesity, LLE DVT on coumadine since November 13 2015, varicose veins, hx cellulitis left leg, Left Lower extremity DVT with vascular intervention ? stent insertion/thrombolytics, hypertension, hyperlipidemia, DM and Factor V leiden (homozygous), hypothyroidism (post thyroidectomy for a massive goiter). stated had a pne vaccine not sure of date History of Any Multi-Drug Resistant Organisms: None Reported Past Surgical History: Adenoidectomy, Appendectomy, Back Surgery, Cholecystectomy, Hysterectomy, Orthopedic Surgery, Tonsillectomy Additional Past Surgical History / Comment(s): carpal tunnel bilateral, thyroidectomy, ORIF rt ankle, stents in LLE/vascular stent Past Anesthesia/Blood Transfusion Reactions: Postoperative Nausea & Vomiting ( PONV) Additional Past Anesthesia/Blood Transfusion Reaction / Comment(s): blood transfusion(December 2015)"pt stated an hour after transfusion became very nauseated and had quit a bit of vomiting" Past Psychological History: Depression Smoking Status: Never smoker Past Alcohol Use History: None Reported Past Drug Use History: None Reported - Past Family History Mother Family Medical History: Renal Disease (Mother at age of 59 from acute renal failure and she had a stroke) Additional Family Medical History / Comment(s): Mother at age 59 from acute renal failure and she had a stroke. Father Family Medical History: Diabetes Mellitus (Father at age 71 from the hypertension diabetes and he had broken heart syndrome), Hypertension Additional Family Medical History / Comment(s): Father at age 71 from hypertension, diabetes and had a broken heart syndrome. Brother(s) Family Medical History: Cancer Sister(s) Family Medical History: Myocardial Infarction ([place]) Additional Family Medical History / Comment(s): Patient has 3 sisters and 2 of them are diabetic. Son(s) Family Medical History: No Reported History (Patient has 4 sons no major medical problems) Additional Family Medical History / Comment(s): Patient has 4 sons with no major medical problems. Daughter(s) Family Medical History: Deep Vein Thrombosis (DVT) Additional Family Medical History / Comment(s): Patient has a daughter with DVT. Medications and Allergies Home Medications Medication Instructions Recorded Confirmed Type Sertraline [Zoloft] 200 mg PO HS 03/07/15 12/19/16 History Atorvastatin [Lipitor] 40 mg PO DAILY 02/10/16 12/19/16 History Lisinopril 10 mg PO DAILY 02/10/16 12/19/16 History Levothyroxine Sodium [Synthroid] 137 mcg PO DAILY 08/17/16 12/19/16 History Cranberry/Vit C 4200mg 1 tab PO DAILY PRN 12/19/16 12/19/16 History Glimepiride [Amaryl] 2 mg PO BID 12/19/16 12/19/16 History HYDROcodone/APAP 10-325MG [[place] 1 tab PO Q6H PRN 12/19/16 12/19/16 History 10-325] Tolterodine ER [Detrol LA] 4 mg PO DAILY 12/19/16 12/19/16 History Warfarin [Coumadin] 15 mg PO HS@1800 12/19/16 12/19/16 History Allergies Allergy/AdvReac Type Severity Reaction Status Date / Time Anesthetics - Amide Type AdvReac Nausea & Verified 12/19/16 20:59 Vomiting & Diarrhea Anesthetics - Jonna Type- AdvReac Nausea & Verified 12/19/16 20:59 Parabens Vomiting & Diarrhea Physical Exam Vitals: Vital Signs Temp Pulse Pulse Resp BP BP Pulse Ox 12/20/16 02:41 96 12/20/16 02:25 97.7 F 68 20 164/80 96 12/20/16 01:40 97.8 F 69 18 159/83 98 12/20/16 00:38 98.0 F 69 16 153/77 97 12/19/16 23:34 97.6 F 70 20 166/86 95 12/19/16 20:23 97.7 F 88 18 136/68 96 Intake and Output 12/19/16 12/20/16 12/20/16 22:59 06:59 14:59 Intake Total 1800 Balance 1800 Intake: IV 800 Sodium Chloride 0.9% 1, 800 000 ml @ 100 mls/hr IV . Q10H [facility] [place] Rx#:[id number] Amount of Fluid Infused ( 1000 ml) Other: Weight 127.006 kg 128 kg - Constitutional General appearance: cooperative, obese, severe distress - EENT Eyes: PERRLA, dentition normal, normal appearance ENT: normal oropharynx Ears: bilateral: normal, negative: erythema - Neck Neck: no lymphadenopathy, normal ROM, no rigidity, no stridor Carotids: bilateral: upstroke normal Thyroid: bilateral: normal size, negative: firm - Respiratory Respiratory: bilateral: CTA, negative: rales, rhonchi, wheezing - Cardiovascular Rhythm: regular Heart sounds: normal: S1, S2 Abnormal Heart Sounds: no systolic murmur, no S3 Gallop, no S4 Gallop - Gastrointestinal General gastrointestinal: decreased bowel sounds, no distended, no hepatomegaly , no rigid, no soft, tenderness Localized gastrointestinal: tender: epigastric periumbilical, rebound: epigastric periumbilical, mass: epigastric periumbilical - Integumentary Integumentary: no calor, no cellulitis, no cyanotic, decreased turgor, no flushed, no jaundiced - Neurologic Neurologic: CNII-XII intact - Musculoskeletal Musculoskeletal: gait normal, strength equal bilaterally - Psychiatric Psychiatric: A&O x's 3, appropriate affect, intact judgment & insight Results CBC & Chem 7: 12/19/16 22:15 12/19/16 22:15 Labs: Abnormal Lab Results - Last 24 Hours (Table) 12/19/16 12/19/16 12/19/16 Range/Units 22:15 22:15 22:15 WBC 3.7 L (3.8-10.6) k/uL Plt Count 131 L (150-450) k/uL PT 13.5 H (9.0-12.0) sec INR 1.4 H (<1.2) Glucose 155 H (74-99) mg/dL Total Protein 6.0 L (6.3-8.2) g/dL Albumin 3.4 L (3.5-5.0) g/dL Amylase <30 L (30-110) U/L Ur Leukocyte Esterase (Negative) Urine WBC (0-5) /hpf Urine Bacteria (None) /hpf Urine Mucus (None) /hpf 12/19/16 Range/Units 22:38 WBC (3.8-10.6) k/uL Plt Count (150-450) k/uL PT (9.0-12.0) sec INR (<1.2) Glucose (74-99) mg/dL Total Protein (6.3-8.2) g/dL Albumin (3.5-5.0) g/dL Amylase (30-110) U/L Ur Leukocyte Esterase Small H (Negative) Urine WBC 6 H (0-5) /hpf Urine Bacteria Rare H (None) /hpf Urine Mucus Rare H (None) /hpf Chest x-ray: report reviewed CT scan - abdomen: report reviewed Thrombosis Risk Factor Assmnt - Choose All That Apply Any of the Below Risk Factors Present?: Yes Each Factor Represents 1 point: Age 41-60 years, Obesity (BMI >25) Other Risk Factors: Yes Each Risk Factor Represents 3 Points: Positive Factor V Leiden, History of DVT/ PE Other congenital or acquired thrombophilia - If yes, enter type in comment: No Thrombosis Risk Factor Assessment Total Risk Factor Score: 8 Thrombosis Risk Factor Assessment Level: High Risk Assessment and Plan (1) Abdominal pain Narrative/Plan: this pain has been going on however it worsened yesterday with worsening nausea and vomiting my plan is to control her pain I will place her on Dilaudid when necessary as well as [place] as needed Place her on clear liquids diet. Status: Acute (2) Diarrhea Narrative/Plan: (This been going on for 2 months with recent worsening notice an antibiotic exposure however will send stool for C. diff. Status: Acute (3) Epigastric mass Narrative/Plan: Computed tomography scan of the abdomen redemonstrated the presence of mesenteric mass with surrounding stranding differential included was lymphoma, sarcoma or metastases. I would reconsult GI as well as oncology, we will also involve social workers to assist with her insurance issues. Status: Acute (4) Nausea & vomiting Status: Acute (5) Benign essential hypertension Narrative/Plan: Blood pressure seems to be controlled we will hold lisinopril especially with the recent CT with contrast Status: Acute (6) VINH (obstructive sleep apnea) Narrative/Plan: Patient has underlying diagnosis of sleep apnea however she admits noncompliance with CPAP machine will consult respiratory therapy Status: Acute (7) Failure of outpatient treatment Narrative/Plan: Patient apparently was not able to have biopsy of her epigastric mass due to insurance issues, I'll reconsult medical scientist for assistance. Status: Acute (8) Morbid obesity Narrative/Plan: BMI greater than 35 patient was counseled regarding weight loss and lifestyle modification. Status: Acute (9) Diabetes mellitus Narrative/Plan: Sugars are stable we will hold amaryl place on insulin sliding scale with Accu-Cheks before meals and at bedtime. Status: Acute (10) Chronic anticoagulation Status: Acute (11) Chronic anticoagulation Narrative/Plan: Due to factor V Leiden deficiency and history of massive DVT continue her Coumadin with PT/INR monitoring goal INR 2-3. Status: Acute Time with Patient: Greater than 30
[2016-12-20] MEDS ORDERED: LISINOPRIL 10 MG TAB PO SCH (09:00)
[2016-12-20] MEDS: OXYBUTYNIN XL 5 MG TAB.ER.24 PO SCH (09:25)
[2016-12-20] MEDS: ATORVASTATIN 40 MG TAB PO SCH (09:25)
[2016-12-20] MEDS: PANTOPRAZOLE 40 MG/10 ML VIAL IV SCH (09:26)
--- NOTE | 2016-12-20 10:23 | P.PN ---
Subjective Principal diagnosis: Abdominal mass Patient is a 56 yo female with a history of hypertneions, diabetes type 2 on orals with A1C 7.4, factor V liden, Hypothyroidism, and obesity who presented with uncontrolled abdominal pain. She initially started having abdominal pain in October and underwent hospitalization which found a mesenteric mass. She was seen by Dr. Gallagher of gastroenterology and was supposed to follow at [facility] for possible biopsy. Unfortunately due to insurance issues she was unable to do so, she currently has a biopsy scheduled for [facility] however her pain was so severe that she presented to the emergency department. She also has been struggling with headaches September 2016. In the ER she underwent an extensive evaluation. Her vital signs are found within normal limits, initial laboratory analysis was essentially unremarkable, and CT of the abdomen and pelvis redemonstrated a 9.5 x 8.1 cm mesenteric mass with some stranding. Dr. Hunt has been counseled today. She saw Dr. Alvarez in the past for oncology who will also be consulted. Patient seen and examined at bedside. She complains of abdominal pain but states that it is decreased since admission. She has some nausea but no vomiting. She states that she has chronic diarrhea and every time she eats something she immediately goes to the bathroom. She denies any flushing palpitations remain flat. She has had weight gain and weight loss. She states her appetite has been somewhat depressed. Objective - Vital Signs Vital signs: Vital Signs Temp 97.7 F 12/20/16 02:25 Pulse 68 12/20/16 02:25 Resp 20 12/20/16 02:25 BP 164/80 12/20/16 02:25 Pulse Ox 96 12/20/16 02:41 Intake & Output 12/19/16 12/20/16 12/20/16 18:59 06:59 18:59 Intake Total 1800 Balance 1800 Weight 128 kg Intake: IV 800 Sodium Chloride 0.9% 1, 800 000 ml @ 100 mls/hr IV . Q10H BETTE Rx#:[id number] Amount of Fluid Infused ( 1000 ml) - Constitutional General appearance: Present: cooperative, morbidly obese, no acute distress - EENT Eyes: Present: EOMI, dentition normal, normal appearance. Absent: ptosis, scleral icterus ENT: Present: hearing grossly normal, NA/AT. Absent: thrush - Respiratory Respiratory: bilateral: diminished, negative: rhonchi, wheezing, prolonged expiration, prolonged inspiration - Cardiovascular Rhythm: regular Heart sounds: normal: S1, S2 Abnormal Heart Sounds: Absent: systolic murmur, diastolic murmur - Peripheral edema foot Peripheral Edema: bilateral: Trace - Peripheral pulses posterior tibial Peripheral Pulses: bilateral: Normal - Gastrointestinal Gastrointestinal Comment(s): limited by body habitus General gastrointestinal: Present: normal bowel sounds, soft. Absent: organomegaly, splenomegaly, tenderness - Integumentary Integumentary: Present: normal, normal turgor. Absent: cyanotic, jaundiced - Neurologic Neurologic: Present: CNII-XII intact, focal deficits - Psychiatric Psychiatric: Present: A&O x's 3, appropriate affect, intact judgment & insight - Labs CBC & Chem 7: 12/19/16 22:15 12/19/16 22:15 Labs: Abnormal Lab Results - Last 24 Hours (Table) 12/19/16 12/19/16 12/19/16 Range/Units 22:15 22:15 22:15 WBC 3.7 L (3.8-10.6) k/uL Plt Count 131 L (150-450) k/uL PT 13.5 H (9.0-12.0) sec INR 1.4 H (<1.2) Glucose 155 H (74-99) mg/dL Total Protein 6.0 L (6.3-8.2) g/dL Albumin 3.4 L (3.5-5.0) g/dL Amylase <30 L (30-110) U/L Ur Leukocyte Esterase (Negative) Urine WBC (0-5) /hpf Urine Bacteria (None) /hpf Urine Mucus (None) /hpf 12/19/16 Range/Units 22:38 WBC (3.8-10.6) k/uL Plt Count (150-450) k/uL PT (9.0-12.0) sec INR (<1.2) Glucose (74-99) mg/dL Total Protein (6.3-8.2) g/dL Albumin (3.5-5.0) g/dL Amylase (30-110) U/L Ur Leukocyte Esterase Small H (Negative) Urine WBC 6 H (0-5) /hpf Urine Bacteria Rare H (None) /hpf Urine Mucus Rare H (None) /hpf Assessment and Plan (1) Abdominal pain Narrative/Plan: Pain control with Dilaudid and [place], continue clear liquid diet. Status: Acute (2) Mesenteric mass Narrative/Plan: Known since October 2016, has not had biopsy due to insurance reasons, await GI and oncology consultation. Patient states that her insurance does cover [facility]. If headache does not improve could consider CT of the head to rule out metastatic disease however her headaches have been there is sent August and she had a head CT done at that time which was negative. Status: Acute (3) Diarrhea Narrative/Plan: Chronic for 2 months, question carcinoid syndrome with known mass, consider 24- hour urine for 5 HIAA if GI and oncology are in agreement, will check chromografin A. await C. diff. Status: Acute (4) Benign essential hypertension Narrative/Plan: Blood pressure control, lisinopril today with recent computed tomography scan with contrast, anticipate resuming lisinopril in a.m., when necessary hydralazine Status: Acute (5) Chronic anticoagulation Narrative/Plan: On chronic anticoagulation secondary to factor V Leiden deficiency with history of DVT, Coumadin monitoring with goal INR of 2-3 Status: Acute (6) Diabetes mellitus Narrative/Plan: Well-controlled on oral medications at home with Amaryl, A1c was 7.4 in October 2016, hold oral medications, insulin sliding scale. Status: Acute (7) VINH (obstructive sleep apnea) Narrative/Plan: Patient does not typically use CPAP at home, respiratory consult Status: Acute (8) Morbid obesity Narrative/Plan: Structured outpatient weight loss recommended. Status: Acute Plan: A total of 40 minutes of care time was spent with this patient. Discussed with: Nursing. If questions please do not hesitate to contact myself at [phone]
[2016-12-20 11:04] LABS: Hemoglobin A1C 6.4 % (4.2-6.1)
[2016-12-20 11:38] LABS: Glucose,Whole Blood 155 mg/dL (75-99)
[2016-12-20] MEDS: ENOXAPARIN 40 MG/0.4 ML SYRINGE SQ SCH (15:47)
[2016-12-20] MEDS: ONDANSETRON 4 MG/2 ML VIAL IVP PRN (15:47)
[2016-12-20 17:57] LABS: Glucose,Whole Blood 148 mg/dL (75-99)
[2016-12-20] MEDS ORDERED: WARFARIN 5 MG TAB PO SCH (18:00)
[2016-12-20 20:36] LABS: Glucose,Whole Blood 171 mg/dL (75-99)
[2016-12-20] MEDS ORDERED: SERTRALINE 100 MG TAB PO SCH (21:00)
[2016-12-21] MEDS: ONDANSETRON 4 MG/2 ML VIAL IVP PRN ×2 (02:16→12:09)
[2016-12-21] MEDS: HYDROmorphone 1 MG/ML 1 ML SYRINGE IV PRN ×2 (02:16→08:33)
[2016-12-21] MEDS: LEVOTHYROXINE 137 MCG TAB PO SCH (06:17)
[2016-12-21 07:49] LABS: Prothrombin Time 18.8 sec (9.0-12.0)
[2016-12-21 07:52] LABS: Glucose,Whole Blood 117 mg/dL (75-99)
[2016-12-21 08:01] LABS: Basophils % (A) 0 %; CH 31.4; CHCM 33.7; Eosinophils # (A) 0.1 k/uL (0-0.7); Eosinophils % (A) 3 %; HCT 38.5 % (34.0-46.0); HDW 2.81; HGB 12.3 gm/dL (11.4-16.0); Luc # (Auto) 0.06; Luc % (Auto) 2; Lymphocytes # (A) 0.5 k/uL (1.0-4.8); Lymphocytes % (A) 15 %; MCH 29.9 pg (25.0-35.0); MCV 93.5 fL (80.0-100.0); Mean Platelet Volume 7.6; Monocytes # (A) 0.3 k/uL (0-1.0); Monocytes % (A) 9 %; Neutrophils # (A) 2.5 k/uL (1.3-7.7); Neutrophils % (A) 71 %; RBC 4.11 m/uL (3.80-5.40); RDW 13.3 % (11.5-15.5); WBC 3.5 k/uL (3.8-10.6); WBC (Perox) 3.65
[2016-12-21 08:03] LABS: ALT 60 U/L (9-52); AST 74 U/L (14-36); Alkaline Phosphatase 149 U/L (38-126); Anion Gap 5 mmol/L; Blood Urea Nitrogen 8 mg/dL (7-17); Calcium 8.3 mg/dL (8.4-10.2); Carbon Dioxide 27 mmol/L (22-30); Chloride 105 mmol/L (98-107); Glucose 111 mg/dL (74-99); LDH 617 U/L (313-618); Magnesium 1.6 mg/dL (1.6-2.3); Non-African American GFR(MDRD) >60 (>60 ml/min/1.73 sqM); Phosphorous 3.3 mg/dL (2.5-4.5); Sodium 137 mmol/L (137-145); Total Bilirubin 1.7 mg/dL (0.2-1.3); Total Protein 5.4 g/dL (6.3-8.2)
[2016-12-21] MEDS: ENOXAPARIN 40 MG/0.4 ML SYRINGE SQ SCH (08:32)
[2016-12-21] MEDS: ATORVASTATIN 40 MG TAB PO SCH (08:32)
[2016-12-21] MEDS: OXYBUTYNIN XL 5 MG TAB.ER.24 PO SCH (08:32)
[2016-12-21] MEDS: PANTOPRAZOLE 40 MG/10 ML VIAL IV SCH (08:33)
[2016-12-21 08:55] VITALS: BP 150/71; PULSE 81; RESP 18; TEMP 98
[2016-12-21] MEDS ORDERED: PROCHLORPERAZINE 5 MG TAB PO PRN (09:23)
--- NOTE | 2016-12-21 10:06 | P.PN ---
Progress Note - Text Patient seen and examined at bedside. Continues to complain of vomiting. Zofran is not helping. Her pain is controlled with the Dilaudid however this wears off quickly and she has not been able to tolerate oral pain medications. She's not had any diarrhea since admission but has only tolerated small amounts of liquid. Case discussed with oncology nurse practitioner Kari. They are concerned with the delay in biopsy. They are recommending transfer to a facility that can do endoscopic ultrasound. They state that they have used to try [facility] multiple times in the past. They're willing to follow her care there and suggested admission to the hospitalist group. I have spoken with the transfer team at [facility] as well as the hospitalist team. She has been accepted to Dr. Jenny Jeffrey. They state we'll have to have approval from [facility] prior to transfer. They are looking into this at this point in time. Formal note to follow with either progress note or discharge summary pending insurance approval. Darby Tinsley, DO
[2016-12-21 11:27] LABS: Glucose,Whole Blood 139 mg/dL (75-99)
--- NOTE | 2016-12-21 12:35 | P.DS ---
Providers Date of admission: 12/20/16 01:27 Expected date of discharge: 12/21/16 Attending physician: Paul Kulkarni MD Consults: 12/20/16 01:11 Consult Physician Stat Consulting Provider: Jodie Hunt Consult Reason/Comments: Epigastric mass, diarrhea Do you want consulting provider notified?: Yes, Notify in am 12/20/16 10:34 Consult Physician Routine Consulting Provider: Gael Alvarez Consult Reason/Comments: Messentary mass, ? carcnoid syndrome Do you want consulting provider notified?: Yes Primary care physician: Obdulia Llamas Diagnosis(es) (1) Abdominal pain Current Visit: Yes Status: Acute (2) Mesenteric mass Current Visit: No Status: Acute Priority: High (3) Diarrhea Current Visit: Yes Status: Acute (4) Benign essential hypertension Current Visit: Yes Status: Acute (5) Chronic anticoagulation Current Visit: Yes Status: Acute (6) Diabetes mellitus Current Visit: Yes Status: Acute (7) VINH (obstructive sleep apnea) Current Visit: Yes Status: Acute (8) Morbid obesity Current Visit: No Status: Acute (9) Failure of outpatient treatment Current Visit: No Status: Acute (10) Transaminitis Current Visit: No Status: Acute (11) Thrombocytopenia Current Visit: Yes Status: Acute Hospital Course: Patient is a 56-year-old female with a history of hypertension, type 2 diabetes mellitus on orals with A1c of 6.4, factor V 5 Leiden on chronic Coumadin therapy, hypothyroidism, and obesity who initially presented with uncontrolled abdominal pain. She was hospitalized here in October for the same and was found to have a mesenteric mass. At that point in time she was seen by Dr. Hunt of gastroenterology and was supposed to be discharged to [facility] for possible endoscopic ultrasound with biopsy. However [facility] was unable to obtain insurance approval and the transfer was therefore canceled. She was discharged home for outpatient follow-up. Since that time she been unable to arrange endoscopic ultrasound with biopsy due to insurance reasons. She represented to our facility after her abdominal pain became so severe she could no longer tolerate it at home. She had been taking [place] at home without relief. She has also been having chronic diarrhea for the last 2 months. She has developed some nausea and vomiting. In the ER she underwent an extensive evaluation. Her vital signs were found to be within normal limits, initial laboratory analysis was essentially unremarkable, and CT of the abdomen and pelvis redemonstrated a 9.5 x 8.1 cm mesenteric mass with stranding. She was admitted for pain control and further evaluation. She was seen by Dr. Alvarez (partners with Dr. Balderrama and Dr. Jeffrey) and case was discussed with his nurse practitioner, Kari. They recommended transfer to a facility that can do endoscopic ultrasound in order to obtain a biopsy and suggested [facility]. On the morning after admission the patient was having significant nausea and vomiting despite Zofran. Her pain was better controlled with IV Dilaudid and oral [place]. She was unable to tolerate even small amounts of clear liquids. Her liver enzymes had elevated slightly likely secondary to nausea and vomiting. There was concern that her diarrhea could possibly be from carcinoid syndrome. A chromogranin A level was ordered but was not available at time of discharge. We had not instituted and 24-hour urine due to possibility of discharge but this could be performed for 5 HIAA if continues to seem warranted. She is very concerned about possibility of cancer. Compazine was added in addition to the Zofran to help with nausea. Her Coumadin had been held since admission for possible biopsy. Her INR on day of discharge was 2 despite no coumadin being given. She had received Lovenox during her admission secondary to her INR being 1.4 at admission. Case was discussed with the hospitalist at [facility] who accepted the patient in transfer. She will be admitted to care of Dr. Jeffrey. Pertinent Studies: CT of the abdomen and pelvis obtained on 12/20/2016 showing central mesenteric mass which appears overall smaller with less drowning stranding and decreased low-density honing area to considerations of lymphoma, sarcoma, or metastasis. Procedures: none Patient Condition at Discharge: Fair Plan - Discharge Summary New Discharge Prescriptions: No Action Sertraline [Zoloft] 200 mg PO HS Atorvastatin [Lipitor] 40 mg PO DAILY Lisinopril 10 mg PO DAILY Levothyroxine Sodium [Synthroid] 137 mcg PO DAILY Pantoprazole [Protonix] 40 mg PO AC-BID #60 tab Tolterodine ER [Detrol LA] 4 mg PO DAILY HYDROcodone/APAP 10-325MG [[place] 10-325] 1 tab PO Q6H PRN PRN Reason: Pain Cranberry/Vit C 4200mg 1 tab PO DAILY PRN PRN Reason: UTI SYMPTOMS Glimepiride [Amaryl] 2 mg PO BID Warfarin [Coumadin] 15 mg PO HS@1800 Discharge Medication List Sertraline [Zoloft] 200 mg PO HS 03/07/15 [History] Atorvastatin [Lipitor] 40 mg PO DAILY 02/10/16 [History] Lisinopril 10 mg PO DAILY 02/10/16 [History] Levothyroxine Sodium [Synthroid] 137 mcg PO DAILY 08/17/16 [History] Pantoprazole [Protonix] 40 mg PO AC-BID #60 tab 10/25/16 [Rx] Cranberry/Vit C 4200mg 1 tab PO DAILY PRN 12/19/16 [History] Glimepiride [Amaryl] 2 mg PO BID 12/19/16 [History] HYDROcodone/APAP 10-325MG [[place] 10-325] 1 tab PO Q6H PRN 12/19/16 [History] Tolterodine ER [Detrol LA] 4 mg PO DAILY 12/19/16 [History] Warfarin [Coumadin] 15 mg PO HS@1800 12/19/16 [History] Follow up Appointment(s)/Referral(s): Obdulia Jasso MD [Primary Care Provider] - 1-2 days Discharge Disposition: OTHER INSTITUTION NOT DEFINED
--- NOTE | 2016-12-21 17:16 | P.CONS ---
History of Present Illness - Reason for Consult Consult date: 12/21/16 messenteric mass Requesting physician: Darby Ferro - Chief Complaint epigastric pain, vomiting, diarrhea - History of Present Illness Ms. Cervantes was 1st seen in October by Hem/Onc. She has history of DVT, factor V leiden mutation and left breast mass that is monitored every 6 months. She presented at that time with epigastric pain, nausea, vomiting, CT AP revealed a messesteric mass, Onc, GI and Surgery agreed that best option for biopsy was EUS procedure, pt symptoms were managed and she was discharged. Unfortunately, due to insurance difficulties pt has not been able to have procedure and therefore has no diagnosis. She returns to the hospital with c/o epigastric pain, lower part of sternum, hurts to even touch the area, 02/20, constant, when she stands up the area bulges outward like a hernia, she has associated nausea and vomiting, can keep hardly anything down, she has very soft stool. Denies fever, cough, dysuria, bleeding or swelling in her legs. Review of Systems All systems: negative Constitutional: Reports as per HPI Past Medical History Past Medical History: Chest Pain / Angina, Diabetes Mellitus, Deep Vein Thrombosis (DVT), Hyperlipidemia, Hypertension, Sleep Apnea/CPAP/BIPAP Additional Past Medical History / Comment(s): Obesity, LLE DVT on coumadine since November 13 2015, varicose veins, hx cellulitis left leg, Left Lower extremity DVT with vascular intervention ? stent insertion/thrombolytics, hypertension, hyperlipidemia, DM and Factor V leiden (homozygous), hypothyroidism (post thyroidectomy for a massive goiter). stated had a pne vaccine not sure of date History of Any Multi-Drug Resistant Organisms: None Reported Past Surgical History: Adenoidectomy, Appendectomy, Back Surgery, Cholecystectomy, Hysterectomy, Orthopedic Surgery, Tonsillectomy Additional Past Surgical History / Comment(s): carpal tunnel bilateral, thyroidectomy, ORIF rt ankle, stents in LLE/vascular stent Past Anesthesia/Blood Transfusion Reactions: Postoperative Nausea & Vomiting ( PONV) Additional Past Anesthesia/Blood Transfusion Reaction / Comm: blood transfusion( December 2015)"pt stated an hour after transfusion became very nauseated and had quit a bit of vomiting" Past Psychological History: Depression Smoking Status: Never smoker Past Alcohol Use History: None Reported Past Drug Use History: None Reported - Past Family History Mother Family Medical History: Renal Disease (Mother at age of 59 from acute renal failure and she had a stroke) Additional Family Medical History / Comment(s): Mother at age 59 from acute renal failure and she had a stroke. Father Family Medical History: Diabetes Mellitus (Father at age 71 from the hypertension diabetes and he had broken heart syndrome), Hypertension Additional Family Medical History / Comment(s): Father at age 71 from hypertension, diabetes and had a broken heart syndrome. Brother(s) Family Medical History: Cancer Sister(s) Family Medical History: Myocardial Infarction (MA) Additional Family Medical History / Comment(s): Patient has 3 sisters and 2 of them are diabetic. Son(s) Family Medical History: No Reported History (Patient has 4 sons no major medical problems) Additional Family Medical History / Comment(s): Patient has 4 sons with no major medical problems. Daughter(s) Family Medical History: Deep Vein Thrombosis (DVT) Additional Family Medical History / Comment(s): Patient has a daughter with DVT. Medications and Allergies Home Medications Medication Instructions Recorded Confirmed Type Sertraline [Zoloft] 200 mg PO HS 03/07/15 12/19/16 History Atorvastatin [Lipitor] 40 mg PO DAILY 02/10/16 12/19/16 History Lisinopril 10 mg PO DAILY 02/10/16 12/19/16 History Levothyroxine Sodium [Synthroid] 137 mcg PO DAILY 08/17/16 12/19/16 History Cranberry/Vit C 4200mg 1 tab PO DAILY PRN 12/19/16 12/19/16 History Glimepiride [Amaryl] 2 mg PO BID 12/19/16 12/19/16 History HYDROcodone/APAP 10-325MG [Success 1 tab PO Q6H PRN 12/19/16 12/19/16 History 10-325] Tolterodine ER [Detrol LA] 4 mg PO DAILY 12/19/16 12/19/16 History Warfarin [Coumadin] 15 mg PO HS@1800 12/19/16 12/19/16 History Allergies Allergy/AdvReac Type Severity Reaction Status Date / Time Anesthetics - Amide Type AdvReac Nausea & Verified 12/19/16 20:59 Vomiting & Diarrhea Anesthetics - Jonna Type- AdvReac Nausea & Verified 12/19/16 20:59 Parabens Vomiting & Diarrhea Physical Exam Vitals: Vital Signs Temp Pulse Resp BP Pulse Ox 12/21/16 07:00 98.0 F 81 18 150/71 93 L 12/20/16 23:00 98.2 F 84 16 148/83 91 L 12/20/16 15:00 98.1 F 82 18 158/84 93 L Intake and Output 12/20/16 12/21/16 12/21/16 22:59 06:59 14:59 Intake Total 800 800 Balance 800 800 Intake: IV 800 800 Sodium Chloride 0.9% 1, 800 800 000 ml @ 100 mls/hr IV . Q10H BETTE Rx#:[id number] Other: # Voids 1 - Constitutional General appearance: cooperative, mild distress, obese - EENT Eyes: anicteric sclerae, normal appearance ENT: hearing grossly normal, normal oropharynx - Neck Neck: no lymphadenopathy - Respiratory Respiratory: bilateral: CTA - Cardiovascular Heart sounds: normal: S1, S2 Abnormal Heart Sounds: no systolic murmur, no diastolic murmur, no rub, no S3 Gallop, no S4 Gallop, no click, no other leg Peripheral Edema: bilateral: None - Gastrointestinal large pannus, pt guards the area inferior to sternum, no visible deformity, superior sternum no pain with palpation, rest of abd is non-tender, unable to appreciate anuy organomegaly - Integumentary Integumentary: normal - Neurologic Neurologic: CNII-XII intact - Musculoskeletal Musculoskeletal: strength equal bilaterally - Psychiatric Psychiatric: A&O x's 3, appropriate affect, intact judgment & insight Results CBC & Chem 7: 12/21/16 07:29 12/21/16 07:29 Labs: Abnormal Lab Results - Last 24 Hours (Table) 12/19/16 12/20/16 12/20/16 Range/Units 22:15 11:36 17:41 WBC (3.8-10.6) k/uL Plt Count (150-450) k/uL Lymphocytes # (1.0-4.8) k/uL PT (9.0-12.0) sec INR (<1.2) Glucose (74-99) mg/dL POC Glucose (mg/dL) 155 H 148 H (75-99) mg/dL Hemoglobin A1c 6.4 H (4.2-6.1) % Calcium (8.4-10.2) mg/dL Total Bilirubin (0.2-1.3) mg/dL AST (14-36) U/L ALT (9-52) U/L Alkaline Phosphatase (38-126) U/L Total Protein (6.3-8.2) g/dL Albumin (3.5-5.0) g/dL 12/20/16 12/21/16 12/21/16 Range/Units 20:35 07:29 07:29 WBC 3.5 L (3.8-10.6) k/uL Plt Count 102 L (150-450) k/uL Lymphocytes # 0.5 L (1.0-4.8) k/uL PT (9.0-12.0) sec INR (<1.2) Glucose 111 H (74-99) mg/dL POC Glucose (mg/dL) 171 H (75-99) mg/dL Hemoglobin A1c (4.2-6.1) % Calcium 8.3 L (8.4-10.2) mg/dL Total Bilirubin 1.7 H (0.2-1.3) mg/dL AST 74 H (14-36) U/L ALT 60 H (9-52) U/L Alkaline Phosphatase 149 H (38-126) U/L Total Protein 5.4 L (6.3-8.2) g/dL Albumin 2.9 L (3.5-5.0) g/dL 12/21/16 12/21/16 Range/Units 07:37 07:51 WBC (3.8-10.6) k/uL Plt Count (150-450) k/uL Lymphocytes # (1.0-4.8) k/uL PT 18.8 H (9.0-12.0) sec INR 2.0 H (<1.2) Glucose (74-99) mg/dL POC Glucose (mg/dL) 117 H (75-99) mg/dL Hemoglobin A1c (4.2-6.1) % Calcium (8.4-10.2) mg/dL Total Bilirubin (0.2-1.3) mg/dL AST (14-36) U/L ALT (9-52) U/L Alkaline Phosphatase (38-126) U/L Total Protein (6.3-8.2) g/dL Albumin (3.5-5.0) g/dL CT scan - abdomen: report reviewed CT scan - pelvis: report reviewed Assessment and Plan (1) Mesenteric mass Narrative/Plan: Case was discussed with attending. Pt has had difficulties in getting procedures done due to insurance so she still has not had biopsy. Pt symptoms and pain are likely related to the mass so, it is felt that best course of action is to transfer if [facility] care center that accepts pt insurance so she can have biopsy and get a diagnosis to expedite treatment. Agree with Attending. [facility]. Status: Acute
== END 2016-12-21 12:20 | disposition other institution (70) ==
LOC: EC 20:18 → INTOOBSV 12-20 01:27 → 5ONC 12-20 01:27
PROVIDERS: ADMIT Internal Medicine; ATTEND Internal Medicine
DX: R19.00 Intra-abdominal and pelvic swelling, mass and lump, unspecified site (principal); R10.13 Epigastric pain; G47.33 Obstructive sleep apnea (adult) (pediatric); E66.01 Morbid (severe) obesity due to excess calories; E11.9 Type 2 diabetes mellitus without complications; D69.6 Thrombocytopenia, unspecified; I10 Essential (primary) hypertension; R19.7 Diarrhea, unspecified; E78.5 Hyperlipidemia, unspecified; E89.0 Postprocedural hypothyroidism; D68.51 Activated protein C resistance; R11.2 Nausea with vomiting, unspecified; F32.9 Major depressive disorder, single episode, unspecified; Z79.01 Long term (current) use of anticoagulants; Z68.42 Body mass index [BMI] 45.0-49.9, adult; Z91.19 Patient's noncompliance with other medical treatment and regimen; Z82.49 Family history of ischemic heart disease and other diseases of the circulatory system; Z83.3 Family history of diabetes mellitus; Z99.89 Dependence on other enabling machines and devices; Z86.718 Personal history of other venous thrombosis and embolism; Z88.4 Allergy status to anesthetic agent; Z79.84 Long term (current) use of oral hypoglycemic drugs; Z79.899 Other long term (current) drug therapy; R74.0 Nonspecific elevation of levels of transaminase and lactic acid dehydrogenase [LDH]
CPT/HCPCS: 96376 ×2; 96361 ×3; 96372 ×2; 96375 ×2; 96374; 99285; 36415; 93005; 86316; 80053 ×2; 82150; 83036; 83615; 83690 ×2; 83735; 84100; 84484; 85025 ×2; 85610 ×2; 85730; 81001; 74177; G0378 ×2; J2405 ×3; J1650 ×2; J1170 ×3; Q9967; C9113 ×2

== ENCOUNTER 2017-03-08 11:48 | Inpatient (IN) | payer MEDICARE ==
[2017-03-08] MEDS ORDERED: MORPHINE SULFATE 4 MG/ML SYRINGE IV PRN (12:39)
[2017-03-08] MEDS ORDERED: ACETAMINOPHEN TAB 325 MG TAB PO PRN (12:39)
[2017-03-08] MEDS ORDERED: NALOXONE 0.4 MG/ML 1 ML VIAL IV PRN (12:39)
[2017-03-08 13:01] LABS: Glucose,Whole Blood 272 mg/dL (75-99)
--- NOTE | 2017-03-08 13:34 | P.HPIM ---
History of Present Illness H&P Date: 03/08/17 Chief Complaint: Urinary frequency referred to inpatient from clinic The patient is a 56-year-old morbidly obese female with a past medical history of non-Hodgkin's lymphoma who is received 3 rounds of chemotherapy with RCHOP and was treated with Neulasta 03/02 for chemotherapy- induced neutropenia. Today she presents after being referred from oncology clinic due to neutropenia, were earlier today she presented with chief complaints of increasing urinary urgency, suprapubic and moderate achy radiating left lower quadrant pain with some associated nausea and ongoing diarrhea reported as 3-5 watery stools daily since Sunday. Noted pain radiation into the lower back. The patient reports tremors subjective fevers chills night sweats. Apparently there was a urinalysis done in clinic suggestive of a UTI, she had positive nitrites and leukocyte esterase she was noted then to be neutropenic with a white count of 0.4 and thrombocytopenic the platelet of 35,000 with a hemoglobin of 9.7. 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 History of Any Multi-Drug Resistant Organisms: None Reported Past Surgical History: Adenoidectomy, Appendectomy, Back Surgery, Cholecystectomy, Hysterectomy, Orthopedic Surgery, Tonsillectomy Additional Past Surgical History / Comment(s): Recent abdominal mass biopsy x 2 , BMA, EGD/colonoscopy at [facility], bilateral carpal tunnel release, thyroidectomy (one tiny piece unable to remove), ORIF rt ankle, stents in LLE/ vascular stent, cervical surgery C4,C6, Past Anesthesia/Blood Transfusion Reactions: Postoperative Nausea & Vomiting ( PONV) Additional Past Anesthesia/Blood Transfusion Reaction / Comment(s): blood transfusion(December 2015) "pt stated an hour after transfusion became very nauseated and had quit a bit of vomiting" Smoking Status: Never smoker - Past Family History Mother Family Medical History: Diabetes Mellitus, Renal Disease Additional Family Medical History / Comment(s): Mother of kidney failure at the age of 69yrs. Father Family Medical History: Diabetes Mellitus Additional Family Medical History / Comment(s): Father of a "sugar coma" when he was 72 yrs old. Brother(s) Family Medical History: Cancer Sister(s) Family Medical History: Myocardial Infarction (MS) Additional Family Medical History / Comment(s): Patient has 3 sisters and 2 of them are diabetic. Son(s) Family Medical History: No Reported History (Patient has 4 sons no major medical problems) Additional Family Medical History / Comment(s): Patient has 4 sons with no major medical problems. Daughter(s) Family Medical History: Deep Vein Thrombosis (DVT) Additional Family Medical History / Comment(s): Patient has a daughter with DVT. Medications and Allergies Home Medications Medication Instructions Recorded Confirmed Type Sertraline [Zoloft] 200 mg PO HS 03/07/15 03/08/17 History Atorvastatin [Lipitor] 40 mg PO DAILY 02/10/16 03/08/17 History Lisinopril 10 mg PO DAILY 02/10/16 03/08/17 History Levothyroxine Sodium [Synthroid] 137 mcg PO DAILY 08/17/16 03/08/17 History Cranberry/Vit C 4200mg 1 tab PO DAILY PRN 12/19/16 03/08/17 History Glimepiride [Amaryl] 2 mg PO BID 12/19/16 03/08/17 History HYDROcodone/APAP 10-325MG [[place] 1 tab PO Q4-6H PRN 12/19/16 03/08/17 History 10-325] Tolterodine ER [Detrol LA] 4 mg PO DAILY 12/19/16 03/08/17 History Insulin Lispro [humaLOG Kwikpen] See Protocol SQ AC-TID 03/08/17 03/08/17 History Loperamide HCl [Imodium A-D] 2 - 4 mg PO BID PRN 03/08/17 03/08/17 History Omeprazole [PriLOSEC] 10 mg PO DAILY 03/08/17 03/08/17 History Prochlorperazine [Compazine] 10 mg PO Q6H PRN 03/08/17 03/08/17 History Rivaroxaban [Xarelto] 20 mg PO DAILY 03/08/17 03/08/17 History predniSONE 100 mg PO DIRECTED 03/08/17 03/08/17 History Allergies Allergy/AdvReac Type Severity Reaction Status Date / Time Anesthetics - Amide Type AdvReac Nausea & Verified 03/08/17 14:58 Vomiting & Diarrhea Anesthetics - Jonna Type- AdvReac Nausea & Verified 03/08/17 14:58 Parabens Vomiting & Diarrhea Physical Exam Vitals: Vital Signs Temp Pulse Resp BP Pulse Ox 03/08/17 12:49 99.4 F 80 20 129/53 97 Constitutional: No acute distress, conversant, pleasant Eyes: Anicteric sclerae, moist conjunctiva, no lid-lag, PERRLA ENMT: NC/AT,Oropharynx clear, no erythema, exudates Neck:Supple, FROM, no masses, or JVD, No carotid bruits; No thyromegaly Lungs: Clear to auscultation, Clear to percussion, Normal respiratory effort, no accessory muscle use Cardiovascular: Heart regular in rate and rhythm, No murmurs, gallops, or rubs no peripheral edema Abdominal: Soft Nontender, nom distended, no guarding, no rebound or rigidity, Normoactive bowel sounds No hepatomegaly, No splenomegaly, No palpable mass No abdominal wall hernia noted Skin: Normal temperature, tone, texture, turgor, No induration No subcutaneous nodules, No rash, lesions, No ulcers Extremities:No digital cyanosis No clubbing, Pedal pulses intact and symmetrical Radial pulses intact and symmetrical Normal gait and station, No calf tenderness Psychiatric: Alert and oriented to person, place and time, Appropriate affect Intact judgement Neuro: Muscles Strength 5/5 in all 4 extremities, Sensation to light touch grossly present throughout, Cranial nerves II-XII grossly intact. No focal sensory deficits Results CBC & Chem 7: 03/08/17 13:34 03/08/17 13:34 Labs: Abnormal Lab Results - Last 24 Hours (Table) 03/08/17 Range/Units 12:59 POC Glucose (mg/dL) 272 H (75-99) mg/dL Thrombosis Risk Factor Assmnt - Choose All That Apply Any of the Below Risk Factors Present?: Yes Each Factor Represents 1 point: Obesity (BMI >25) Other Risk Factors: Yes Each Risk Factor Represents 2 Points: Malignancy Each Risk Factor Represents 3 Points: Positive Factor V Leiden, Family history of DVT/PE, History of DVT/PE Other congenital or acquired thrombophilia - If yes, enter type in comment: No Thrombosis Risk Factor Assessment Total Risk Factor Score: 12 Thrombosis Risk Factor Assessment Level: High Risk Assessment and Plan Assessment: Chronic conditions Type 2 diabetes DVT Essential hypertension (1) Urinary tract infection Current Visit: Yes Status: Acute Code(s): N39.0 - URINARY TRACT INFECTION, SITE NOT SPECIFIED SNOMED Code(s): 27509889 (2) Chemotherapy induced neutropenia Current Visit: Yes Status: Acute Code(s): D70.1 - AGRANULOCYTOSIS SECONDARY TO CANCER CHEMOTHERAPY; T45.1X5A - ADVERSE EFFECT OF ANTINEOPLASTIC AND IMMUNOSUP DRUGS, INIT SNOMED Code(s): 828591137 (3) Pancytopenia Current Visit: Yes Status: Acute Code(s): D61.818 - OTHER PANCYTOPENIA SNOMED Code(s): 852306511 (4) Left lower quadrant pain Current Visit: Yes Status: Acute Code(s): R10.32 - LEFT LOWER QUADRANT PAIN SNOMED Code(s): 462460472 (5) Diarrhea Current Visit: No Status: Acute Code(s): R19.7 - DIARRHEA, UNSPECIFIED SNOMED Code(s): 71817781 Plan: The patient is admitted to the oncology unit and placed on neutropenic precautions after being referred here from clinic for neutropenia with UTI, will order a cath urinalysis blood cultures and chest x-ray, will start her on empiric IV antibiotics with cefepime 1 g IV twice a day, will consult ID and heme oncology for further recommendations, continue workup by checking CT abdomen and pelvis , C. diff and stool studies and continue supportive management with anti-emetics antipyretics and morphine for pain. We'll initiate gentle hydration with normal saline 100 mL an hour. We'll continue her routine chronic home medications. We'll continue to monitor her clinical course
[2017-03-08] MEDS: MORPHINE SULFATE 10 MG/ML SYRINGE IV PRN ×3 (13:43→21:26)
[2017-03-08 14:10] LABS: Anisocytosis Slight; CH 31.7; CHCM 33.3; HCT 28.1 % (34.0-46.0); HDW 2.82; MCH 31.6 pg (25.0-35.0); MCHC 33.1 g/dL (31.0-37.0); MCV 95.6 fL (80.0-100.0); Mean Platelet Volume 9.1; RBC 2.93 m/uL (3.80-5.40); RDW 16.3 % (11.5-15.5)
[2017-03-08 14:15] LABS: INR 1.1 (<1.2); Prothrombin Time 11.3 sec (9.0-12.0)
[2017-03-08 14:22] LABS: ALT 44 U/L (9-52); AST 22 U/L (14-36); Alkaline Phosphatase 128 U/L (38-126); Anion Gap 4 mmol/L; Blood Urea Nitrogen 12 mg/dL (7-17); Calcium 8.2 mg/dL (8.4-10.2); Carbon Dioxide 27 mmol/L (22-30); Chloride 102 mmol/L (98-107); Glucose 256 mg/dL (74-99); Magnesium 1.7 mg/dL (1.6-2.3); Non-African American GFR(MDRD) >60 (>60 ml/min/1.73 sqM); Phosphorus 2.1 mg/dL (2.5-4.5); Potassium 3.9 mmol/L (3.5-5.1); Sodium 133 mmol/L (137-145); Total Bilirubin 1.2 mg/dL (0.2-1.3); Total Protein 4.9 g/dL (6.3-8.2)
[2017-03-08 14:31] LABS: HGB 9.3 gm/dL (11.4-16.0)
[2017-03-08 14:34] LABS: WBC 0.5 k/uL (3.8-10.6)
[2017-03-08] MEDS ORDERED: INSULIN LISPRO (humaLOG) 300 UNIT/3 ML VIAL SQ ONE (14:45)
--- NOTE | 2017-03-08 14:46 | CT ---
EXAMINATION TYPE: CT abdomen pelvis wo con DATE OF EXAM: 03/08/2017 HISTORY: Abdominal pain with diarrhea for [address] DLP: 2291 mGycm. Automated Exposure Control for Dose Reduction was Utilized. TECHNIQUE: CT scan of the abdomen and pelvis is performed without oral or IV contrast. COMPARISON: CT abdomen and pelvis December 19, 2016 FINDINGS: Within the limitations of a non-contrast study, the following observations are made. LUNG BASES: No significant abnormality is appreciated. LIVER/GB: There is asymmetric hypertrophy of right caudate hepatic lobes relative to left hepatic lob e similar prior. Slightly lobulated contour to liver is noted. Underlying cirrhosis is not excluded. Clinical and lab correlation advised. Gallbladder is not visualized and presumed surgically absent,. Common bile duct measures 16 mm in diameter on coronal image 47 felt slightly more prominent in size versus prior. There is mild central left intrahepatic biliary dilatation present. PANCREAS: No significant abnormality is seen. SPLEEN: Splenomegaly is redemonstrated measuring 16.4 cm on long axis on axial image 26 ADRENALS: No significant abnormality is seen. KIDNEYS: There is simple appearing 3.2 cm cyst posteriorly upper pole level right kidney on axial arpan ge 34 BOWEL: There is 1.8 cm diverticulum near junction of second and third portion of duodenum on coronal image 48. There is additional 2.2 cm diverticulum posterior to this on axial image 40. There is redem onstration a few diverticula scattered throughout the left and sigmoid colon. There is no CT evidence for acute diverticulitis. There is no suspicious small or large bowel dilatation. GENITAL ORGANS: Uterus is surgically absent or markedly atrophic in appearance. LYMPH NODES: There is persistent mesenteric masses or adenopathy more difficult to accurately measure on current study due to lack of enteric and IV contrast. Findings are felt slightly improved from pr ior seen most prominently near axial image 44. OSSEOUS STRUCTURES: There is moderate multilevel spurring in the visualized thoracic spine. OTHER: There is vascular stent graft left common iliac and external iliac artery. . IMPRESSION: 1. Persistent mesenteric ill-defined mass or adenopathy, differential includes panniculitis or infect ion/inflammation and neoplasm. Other etiologies not excluded. Finding slightly improved from prior. 2. Suspect cirrhosis and possible underlying portal hypertension. Clinical and lab correlation advise d. Mild to moderate biliary dilatation noted more prominent versus prior. Need to further investigate by ERCP should be based on clinical and lab correlation.
[2017-03-08 15:10] LABS: Appearance,Urine Clear (Clear); Bilirubin,Urine Negative (Negative); Glucose,Urine (UA) 4+ (Negative); Ketones,Urine Negative (Negative); Leukocyte Esterase,Urine Negative (Negative); Nitrite,Urine Negative (Negative); Protein,Urine Negative (Negative); Specific Gravity,Urine 1.022 (1.001-1.035); UA Billing (MACRO vs. MICRO) CHEM
[2017-03-08] MEDS: SODIUM CHLORIDE 0.9% 1,000 ML IV SCH (15:59)
[2017-03-08] MEDS: CEFEPIME 1 GM in SODIUM CHLORIDE 0.9% 50 ML IVPB SCH ×2 (15:59→21:19)
[2017-03-08 17:38] LABS: Glucose,Whole Blood 236 mg/dL (75-99)
[2017-03-08 20:26] LABS: Glucose,Whole Blood 293 mg/dL (75-99)
[2017-03-08] MEDS: SERTRALINE 100 MG TAB PO SCH (21:20)
[2017-03-08] MEDS: INSULIN LISPRO (humaLOG) 300 UNIT/3 ML VIAL SQ SCH (22:23)
[2017-03-09] MEDS: HYDROcodone/APAP 10-325MG 1 EACH TAB PO PRN ×5 (01:33→23:50)
[2017-03-09] MEDS: SODIUM CHLORIDE 0.9% 1,000 ML IV SCH ×3 (01:51→20:46)
[2017-03-09 05:49] LABS: CH 31.9; CHCM 33.7; HCT 27.1 % (34.0-46.0); HDW 3.15; HGB 9.1 gm/dL (11.4-16.0); MCH 31.8 pg (25.0-35.0); MCHC 33.4 g/dL (31.0-37.0); MCV 95.3 fL (80.0-100.0); Mean Platelet Volume 8.7; RBC 2.85 m/uL (3.80-5.40); RDW 14.9 % (11.5-15.5); WBC (Perox) 0.34
[2017-03-09 05:52] LABS: WBC 0.3 k/uL (3.8-10.6)
[2017-03-09 05:58] LABS: Anion Gap 4 mmol/L; Blood Urea Nitrogen 11 mg/dL (7-17); Calcium 8.1 mg/dL (8.4-10.2); Carbon Dioxide 24 mmol/L (22-30); Chloride 102 mmol/L (98-107); Glucose 256 mg/dL (74-99); Non-African American GFR(MDRD) >60 (>60 ml/min/1.73 sqM); Potassium 4.3 mmol/L (3.5-5.1); Sodium 130 mmol/L (137-145)
[2017-03-09 06:12] LABS: Add Differential Manual Differential
[2017-03-09 06:13] LABS: Manual Review Performed
[2017-03-09] MEDS: LEVOTHYROXINE 137 MCG TAB PO SCH (06:33)
[2017-03-09 07:21] LABS: Glucose,Whole Blood 251 mg/dL (75-99)
[2017-03-09] MEDS ORDERED: VANCOMYCIN IV PER PHARMACY 1 EACH MISC MISCELLANE PRN (07:53)
[2017-03-09] MEDS: LISINOPRIL 10 MG TAB PO SCH (08:46)
[2017-03-09] MEDS: ATORVASTATIN 40 MG TAB PO SCH (08:46)
[2017-03-09] MEDS: RIVAROXABAN 10 MG TAB PO SCH (08:46)
[2017-03-09] MEDS: INSULIN LISPRO (humaLOG) 300 UNIT/3 ML VIAL SQ SCH ×4 (08:47→20:45)
[2017-03-09] MEDS: PANTOPRAZOLE 40 MG TABLET PO SCH (08:47)
[2017-03-09] MEDS: CEFEPIME 1 GM in SODIUM CHLORIDE 0.9% 50 ML IVPB SCH ×2 (08:48→20:19)
[2017-03-09] MEDS: VANCOMYCIN 2,000 MG in SODIUM CHLORIDE 0.9% 500 ML IVPB SCH ×2 (09:47→20:46)
--- NOTE | 2017-03-09 10:41 | XR ---
EXAMINATION TYPE: XR chest 2V DATE OF EXAM: 03/09/2017 COMPARISON: Prior chest x-ray 10/20/2016 HISTORY: Desaturation, cough, abnormal chest x-ray TECHNIQUE: Frontal and lateral views of the chest are obtained. FINDINGS: There is no focal air space opacity, pleural effusion, or pneumothorax seen. There is a po rt in the left pectoral region, interval placement of a left subclavian central venous catheter with the distal tip overlying the cavoatrial junction. Postop changes are again noted to the cervical spin e. Heart size is likely at the upper limit of normal, patient is rotated. The osseous structures are intact. IMPRESSION: No acute cardiopulmonary process.
--- NOTE | 2017-03-09 10:42 | P.PN ---
Subjective Progress Note Date: 03/09/17 Principal diagnosis: The patient is a 56-year-old morbidly obese female with a history of non-Hodgkin's lymphoma was undergone 3 rounds of RCHOP chemotherapy that was admitted for neutropenia with subjective fevers and chills initially thought to be secondary to UTI, she has previously received [address] abdomen and pelvis suggesting Persistent mesenteric ill-defined mass or adenopathy differential includes panniculitis or infection/inflammation and neoplasm, urinalysis was actually negative blood cultures are positive G+ cocci in clusters, she was started empirically on cefepime and vancomycin has been added. Awaiting consultants recommendations from ID Dr. Patel and Heme Onc Dr. Alvarez Patient feeling very fatigued today, denies any shortness of air problems breathing. Patient has not had any diarrhea or bowel movement since being admitted. Does complain of left lower quadrant abdominal pain. Low-grade temperature 99.9 overnight. Otherwise no acute events eating well blood sugars have been elevated Objective - Vital Signs Vital signs: Vital Signs Temp 98.4 F 03/09/17 07:00 Pulse 83 03/09/17 07:00 Resp 16 03/09/17 07:00 BP 105/61 03/09/17 07:00 Pulse Ox 94 L 03/09/17 07:00 Intake & Output 03/08/17 03/09/17 03/09/17 18:59 06:59 18:59 Intake Total 2160 Balance 2160 Weight 122.47 kg Intake: Intake, IV Titration 1200 Amount Sodium Chloride 0.9% 1, 1200 000 ml @ 100 mls/hr IV . Q10H [facility] Rx#:[id number] Oral 960 Other: # Voids 1 2 - Exam Constitutional: No acute distress, conversant, pleasant Eyes: Anicteric sclerae, moist conjunctiva, no lid-lag, PERRLA ENMT: NC/AT,Oropharynx clear, no erythema, exudates Neck:Supple, FROM, no masses, or JVD, No carotid bruits; No thyromegaly Lungs: Clear to auscultation, Clear to percussion, Normal respiratory effort, no accessory muscle use Cardiovascular: Heart regular in rate and rhythm, No murmurs, gallops, or rubs no peripheral edema Abdominal: Obese abdomen with pannus, mildly tender in the left lower quadrant/ pannus area non distended, no guarding, no rebound or rigidity, Normoactive bowel sounds No hepatomegaly, No splenomegaly, No palpable mass No abdominal wall hernia noted Skin: Normal temperature, tone, texture, turgor, No induration No subcutaneous nodules, No rash, lesions, No ulcers Extremities:No digital cyanosis No clubbing, Pedal pulses intact and symmetrical Radial pulses intact and symmetrical Normal gait and station, No calf tenderness Psychiatric: Alert and oriented to person, place and time, Appropriate affect Intact judgement Neuro: Muscles Strength 5/5 in all 4 extremities, Sensation to light touch grossly present throughout, Cranial nerves II-XII grossly intact. No focal sensory deficits - Labs CBC & Chem 7: 03/09/17 05:30 03/09/17 05:30 Labs: Abnormal Lab Results - Last 24 Hours (Table) 03/08/17 03/08/17 03/08/17 Range/Units 12:59 13:34 13:34 WBC 0.5 L* (3.8-10.6) k/uL RBC 2.93 L (3.80-5.40) m/uL Hgb 9.3 L D (11.4-16.0) gm/dL Hct 28.1 L (34.0-46.0) % RDW 16.3 H (11.5-15.5) % Plt Count 29 L* D (150-450) k/uL Sodium 133 L (137-145) mmol/L Creatinine (0.52-1.04) mg/dL Glucose 256 H (74-99) mg/dL POC Glucose (mg/dL) 272 H (75-99) mg/dL Calcium 8.2 L (8.4-10.2) mg/dL Phosphorus 2.1 L (2.5-4.5) mg/dL Alkaline Phosphatase 128 H (38-126) U/L Total Protein 4.9 L (6.3-8.2) g/dL Albumin 2.7 L (3.5-5.0) g/dL Urine Glucose (UA) (Negative) 03/08/17 03/08/17 03/08/17 Range/Units 14:50 17:31 20:25 WBC (3.8-10.6) k/uL RBC (3.80-5.40) m/uL Hgb (11.4-16.0) gm/dL Hct (34.0-46.0) % RDW (11.5-15.5) % Plt Count (150-450) k/uL Sodium (137-145) mmol/L Creatinine (0.52-1.04) mg/dL Glucose (74-99) mg/dL POC Glucose (mg/dL) 236 H 293 H (75-99) mg/dL Calcium (8.4-10.2) mg/dL Phosphorus (2.5-4.5) mg/dL Alkaline Phosphatase (38-126) U/L Total Protein (6.3-8.2) g/dL Albumin (3.5-5.0) g/dL Urine Glucose (UA) 4+ H (Negative) 03/09/17 03/09/17 03/09/17 Range/Units 05:30 05:30 07:20 WBC 0.3 L* (3.8-10.6) k/uL RBC 2.85 L (3.80-5.40) m/uL Hgb 9.1 L (11.4-16.0) gm/dL Hct 27.1 L (34.0-46.0) % RDW (11.5-15.5) % Plt Count 27 L* (150-450) k/uL Sodium 130 L (137-145) mmol/L Creatinine 0.50 L (0.52-1.04) mg/dL Glucose 256 H (74-99) mg/dL POC Glucose (mg/dL) 251 H (75-99) mg/dL Calcium 8.1 L (8.4-10.2) mg/dL Phosphorus (2.5-4.5) mg/dL Alkaline Phosphatase (38-126) U/L Total Protein (6.3-8.2) g/dL Albumin (3.5-5.0) g/dL Urine Glucose (UA) (Negative) Microbiology - Last 24 Hours (Table) 03/08/17 13:34 Blood Culture - Final Blood 03/08/17 15:00 Urine Culture - Preliminary Urine,Catheterized - Imaging and Cardiology CT scan - abdomen: report reviewed (Persistent mesenteric ill-defined mass or adenopathy differential includes panniculitis or infection/inflammation and neoplasm) Assessment and Plan (1) Gram-positive bacteremia Narrative/Plan: * Peripheral preliminary blood cultures growing bone positive cocci * Continue with cefepime will expand coverage to include vancomycin * Awaiting further recommendations from ID Dr. Patel is been consulted Current Visit: Yes Status: Acute Code(s): R78.81 - BACTEREMIA SNOMED Code( s): 425776446315 (2) Chemotherapy induced neutropenia Narrative/Plan: * Hematology oncology consulted awaiting further recommendations * Patient continues to be neutropenic we'll continue to monitor Current Visit: Yes Status: Acute Code(s): D70.1 - AGRANULOCYTOSIS SECONDARY TO CANCER CHEMOTHERAPY; T45.1X5A - ADVERSE EFFECT OF ANTINEOPLASTIC AND IMMUNOSUP DRUGS, INIT SNOMED Code(s): 555132864 (3) Pancytopenia Narrative/Plan: * Continue to follow CBCs no indications for transfusions at this time, we'll monitor closely Current Visit: Yes Status: Acute Code(s): D61.818 - OTHER PANCYTOPENIA SNOMED Code(s): 087357720 (4) Left lower quadrant pain Current Visit: Yes Status: Acute Code(s): R10.32 - LEFT LOWER QUADRANT PAIN SNOMED Code(s): 356765514 (5) Hyponatremia Narrative/Plan: * Mild hyponatremia likely secondary to dehydration * Continue with IV fluids Current Visit: Yes Status: Acute Code(s): E87.1 - HYPO-OSMOLALITY AND HYPONATREMIA SNOMED Code(s): 14545707 (6) Type 2 diabetes mellitus with hyperglycemia Narrative/Plan: * Blood sugars elevated secondary to infection, continue with correctional scale insulin * A1c pending Current Visit: Yes Status: Acute Code(s): E11.65 - TYPE 2 DIABETES MELLITUS WITH HYPERGLYCEMIA SNOMED Code(s): 279875828189715 (7) Diarrhea Narrative/Plan: * Patient has not had any bowel movements or diarrhea, as yet. Stool hat in the restroom in case she does Current Visit: No Status: Acute Code(s): R19.7 - DIARRHEA, UNSPECIFIED SNOMED Code(s): 12187285
[2017-03-09 11:23] LABS: Glucose,Whole Blood 268 mg/dL (75-99)
[2017-03-09 12:13] LABS: Band Neutrophils % 4 %; Nucleated Red Blood Cells 0 /100 WBC (0-0); Total Cells Counted 50
[2017-03-09 13:57] VITALS: BMI 44.9
--- NOTE | 2017-03-09 16:48 | P.CONS ---
History of Present Illness - Reason for Consult Consult date: 03/09/17 - Chief Complaint Fever and weakness - History of Present Illness 56-year-old female has obesity was having difficulties earlier this year with ongoing pain in her upper abdomen and lower chest. She was out for a while to have pleurisy. However imaging studies were markedly abnormal. 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 She's now received 3 courses of our CHOP therapy. Receiving Neulasta also. She has had neutropenia consistently with her treatments. She now presents to the routine office visit where she's feeling ill with fevers chills and markedly abnormal urine and significant lower abdominal and some right flank pain. Markedly abnormal urine was found and she was admitted to hospital with neutropenic sepsis. Patient feeling slightly better today with hydration and antibiotic therapy. With evidence of a possible culture the infectious diseases consultation was requested. Review of Systems Patient feels very poorly with fever chills rigors sweats all feeling somewhat better today though HEENT:Denies headache or acute visual change. Denies sinus or mouth discomforts. Denies neck stiffness or pain. Denies significant oral cavity pain. Denies difficulty on swallowing. Lungs: Denies significant shortness of breath, cough, sputum production, or hemoptysis. Cardiovascular: Denies significant shortness of breath, chest pain, chest wall pain, orthopnea, dyspnea on exertion, syncope Gastrointestinal: At Admission she had some nausea and some emesis and some loose stool which is now improved since admission she was also was noted having some generalized abdominal pain. Musculoskeletal: denies significant myalgias or arthralgias. No new joint swelling. Denies new back pain. Skin: Denies new rash or lesions. No new ulcers or wounds are related.. Neuro: Denies headache or visual change. Denies any new onset weakness or difficulty with ambulation. Denies falls or seizures. 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 History of Any Multi-Drug Resistant Organisms: None Reported Past Surgical History: Adenoidectomy, Appendectomy, Back Surgery, Cholecystectomy, Hysterectomy, Orthopedic Surgery, Tonsillectomy Additional Past Surgical History / Comment(s): Recent abdominal mass biopsy x 2 , BMA, EGD/colonoscopy at [facility], bilateral carpal tunnel release, thyroidectomy (one tiny piece unable to remove), ORIF rt ankle, stents in LLE/ vascular stent, cervical surgery C4,C6, Past Anesthesia/Blood Transfusion Reactions: Postoperative Nausea & Vomiting ( PONV) Additional Past Anesthesia/Blood Transfusion Reaction / Comm: blood transfusion( December 2015) "pt stated an hour after transfusion became very nauseated and had quit a bit of vomiting" Past Psychological History: No Psychological Hx Reported Additional Psychological History / Comment(s): lives with family home with her . Is living in [place]. That is where they adopted the 2 youngest foster children who are now 14. Lifelong nonsmoker. No cigarette or alcohol use. no recent travels. No pets in the home. No experience Smoking Status: Never smoker Past Drug Use History: Unable to Obtain - Past Family History Mother Family Medical History: Diabetes Mellitus, Renal Disease Additional Family Medical History / Comment(s): Mother of kidney failure at the age of 69yrs. Father Family Medical History: Diabetes Mellitus Additional Family Medical History / Comment(s): Father of a "sugar coma" when he was 72 yrs old. Brother(s) Family Medical History: Cancer Sister(s) Family Medical History: Myocardial Infarction ([place]) Additional Family Medical History / Comment(s): Patient has 3 sisters and 2 of them are diabetic. Son(s) Family Medical History: No Reported History (Patient has 4 sons no major medical problems) Additional Family Medical History / Comment(s): Patient has 4 sons with no major medical problems. Daughter(s) Family Medical History: Deep Vein Thrombosis (DVT) Additional Family Medical History / Comment(s): Patient has a daughter with DVT. Medications and Allergies Home Medications and Allergies Comment(s): Current Medications Acetaminophen (Tylenol Tab) 650 mg PO Q6HR PRN PRN Reason: Mild Pain or Fever > 100.5 Hydrocodone Bitart/Acetaminophen ([place] 10) 1 each PO Q4H PRN PRN Reason: Pain Last Admin: 03/09/17 14:00 Dose: 1 each Atorvastatin Calcium (Lipitor) 40 mg PO DAILY [facility] Last Admin: 03/09/17 08:46 Dose: 40 mg Cefepime HCl 1 gm/ Sodium (Chloride) 50 mls @ 100 mls/hr IVPB Q12HR [facility] Last Admin: 03/09/17 08:48 Dose: 100 mls/hr Sodium Chloride (Saline 0.9%) 1,000 mls @ 100 mls/hr IV .Q10H [facility] Last Admin: 03/09/17 11:34 Dose: Not Given Vancomycin HCl 2,000 mg/ (Sodium Chloride) 500 mls @ 167 mls/hr IVPB Q12HR [facility] Last Admin: 03/09/17 09:47 Dose: 167 mls/hr Insulin Human Lispro (Humalog) 0 unit SQ ACHS [facility] PRN Reason: Protocol Last Admin: 03/09/17 12:57 Dose: 6 unit Levothyroxine Sodium (Synthroid) 137 mcg PO DAILY@0630 [facility] Last Admin: 03/09/17 06:33 Dose: 137 mcg Lisinopril (Zestril) 10 mg PO DAILY [facility] Last Admin: 03/09/17 08:46 Dose: 10 mg Morphine Sulfate (Morphine Sulfate (Inj)) 4 mg IV Q4HR PRN PRN Reason: Severe Pain Last Admin: 03/08/17 21:26 Dose: 4 mg Naloxone HCl (Narcan) 0.2 mg IV Q2M PRN PRN Reason: Opioid Reversal Ondansetron HCl (Zofran) 4 mg IVP Q6HR PRN PRN Reason: Nausea And Vomiting Pantoprazole Sodium (Protonix) 40 mg PO AC-BRKFST [facility] Last Admin: 03/09/17 08:47 Dose: 40 mg Rivaroxaban (Xarelto) 20 mg PO DAILY [facility] Last Admin: 03/09/17 08:46 Dose: 20 mg Sertraline HCl (Zoloft) 200 mg PO HS [facility] Last Admin: 03/08/17 21:20 Dose: 200 mg Home Medications Medication Instructions Recorded Confirmed Type Sertraline [Zoloft] 200 mg PO HS 03/07/15 03/08/17 History Atorvastatin [Lipitor] 40 mg PO DAILY 02/10/16 03/08/17 History Lisinopril 10 mg PO DAILY 02/10/16 03/08/17 History Levothyroxine Sodium [Synthroid] 137 mcg PO DAILY 08/17/16 03/08/17 History Cranberry/Vit C 4200mg 1 tab PO DAILY PRN 12/19/16 03/08/17 History Glimepiride [Amaryl] 2 mg PO BID 12/19/16 03/08/17 History HYDROcodone/APAP 10-325MG [[place] 1 tab PO Q4-6H PRN 12/19/16 03/08/17 History 10-325] Tolterodine ER [Detrol LA] 4 mg PO DAILY 12/19/16 03/08/17 History Insulin Lispro [humaLOG Kwikpen] See Protocol SQ AC-TID 03/08/17 03/08/17 History Loperamide HCl [Imodium A-D] 2 - 4 mg PO BID PRN 03/08/17 03/08/17 History Omeprazole [PriLOSEC] 10 mg PO DAILY 03/08/17 03/08/17 History Prochlorperazine [Compazine] 10 mg PO Q6H PRN 03/08/17 03/08/17 History Rivaroxaban [Xarelto] 20 mg PO DAILY 03/08/17 03/08/17 History predniSONE 100 mg PO DIRECTED 03/08/17 03/08/17 History Allergies Allergy/AdvReac Type Severity Reaction Status Date / Time Anesthetics - Amide Type AdvReac Nausea & Verified 03/08/17 14:58 Vomiting & Diarrhea Anesthetics - Jonna Type- AdvReac Nausea & Verified 03/08/17 14:58 Parabens Vomiting & Diarrhea Physical Exam Vitals: Vital Signs Temp Pulse Resp BP Pulse Ox 03/09/17 15:00 99.2 F 81 18 126/67 98 03/09/17 07:00 98.4 F 83 16 105/61 94 L 03/09/17 00:00 16 03/08/17 23:00 98.3 F 84 16 127/60 95 Intake and Output 03/09/17 03/09/17 03/09/17 06:59 14:59 22:59 Intake Total 1040 1090 Balance 1040 1090 Intake: Intake, IV Titration 800 850 Amount Cefepime 1 gm In Sodium 50 Chloride 0.9% 50 ml @ 100 mls/hr IVPB Q12HR [facility] Rx #:[id number] Sodium Chloride 0.9% 1, 800 300 000 ml @ 100 mls/hr IV . Q10H [facility] Rx#:[id number] Vancomycin 2,000 mg In 500 Sodium Chloride 0.9% 500 ml @ 167 mls/hr IVPB Q12HR [facility] Rx#:[id number] Oral 240 240 Other: # Voids 2 3 Weight 122.47 kg Patient Weight 03/10/17 06:59 Weight 122.47 kg 48-year-old woman who has obesity and generalized complaints of malaise and abdominal pain which is improved HEENT: Anicteric conjunctiva are pink and moist nasal mucosa grossly intact without significant lesions, there is no thrush. Neck: The neck is supple without significant lymphadenopathy or thyromegaly. Lungs: Good bilateral air entry without significant crackles or wheezing. There is no significant bronchial sounds. There is no egophony or dullness. Heart: Regular rate and rhythm with an audible S1-S2, no S3 no S4. There is no significant murmur click or rub, PMI was nondisplaced. Abdomen: Obese, Positive bowel sounds soft distinctly tender into the right flank area and in the epigastric area. No palpable masses noted. No guarding or rebound. No bruising to the abdominal wall. Extremities: The upper extremities have excellent pulses they are symmetric, no significant petechiae or telangiectasia. No splinter hemorrhages were noted. The lower extremities are free from significant edema. The peripheral pulses were 2+ and symmetric. Neuro: Awake alert oriented to person place and time. There are no acute new gross focal sensory motor deficits. Results CBC & Chem 7: 03/09/17 05:30 03/09/17 05:30 Labs: Abnormal Lab Results - Last 24 Hours (Table) 03/08/17 03/08/17 03/09/17 Range/Units 17:31 20:25 05:30 WBC 0.3 L* (3.8-10.6) k/uL RBC 2.85 L (3.80-5.40) m/uL Hgb 9.1 L (11.4-16.0) gm/dL Hct 27.1 L (34.0-46.0) % Plt Count 27 L* (150-450) k/uL Neutrophils # (Manual) 0.00 L (1.3-7.7) k/uL Lymphocytes # (Manual) 0.19 L (1.0-4.8) k/uL Sodium (137-145) mmol/L Creatinine (0.52-1.04) mg/dL Glucose (74-99) mg/dL POC Glucose (mg/dL) 236 H 293 H (75-99) mg/dL Calcium (8.4-10.2) mg/dL 03/09/17 03/09/17 03/09/17 Range/Units 05:30 07:20 11:18 WBC (3.8-10.6) k/uL RBC (3.80-5.40) m/uL Hgb (11.4-16.0) gm/dL Hct (34.0-46.0) % Plt Count (150-450) k/uL Neutrophils # (Manual) (1.3-7.7) k/uL Lymphocytes # (Manual) (1.0-4.8) k/uL Sodium 130 L (137-145) mmol/L Creatinine 0.50 L (0.52-1.04) mg/dL Glucose 256 H (74-99) mg/dL POC Glucose (mg/dL) 251 H 268 H (75-99) mg/dL Calcium 8.1 L (8.4-10.2) mg/dL Microbiology - Last 24 Hours (Table) 03/08/17 13:34 Blood Culture Gram Stain - Preliminary Blood 03/08/17 13:34 Blood Culture - Final Blood 03/08/17 15:00 Urine Culture - Preliminary Urine,Catheterized Laboratory Results WBC 0.3 k/uL (3.8-10.6) L* 03/09/17 05:30 RBC 2.85 m/uL (3.80-5.40) L 03/09/17 05:30 Hgb 9.1 gm/dL (11.4-16.0) L 03/09/17 05:30 Hct 27.1 % (34.0-46.0) L 03/09/17 05:30 MCV 95.3 fL (80.0-100.0) 03/09/17 05:30 MCH 31.8 pg (25.0-35.0) 03/09/17 05:30 MCHC 33.4 g/dL (31.0-37.0) 03/09/17 05:30 RDW 14.9 % (11.5-15.5) 03/09/17 05:30 Plt Count 27 k/uL (150-450) L* 03/09/17 05:30 Neutrophils % (Manual) 8 % 03/09/17 05:30 Band Neutrophils % 4 % 03/09/17 05:30 Lymphocytes % (Manual) 62 % 03/09/17 05:30 Monocytes % (Manual) 22 % 03/09/17 05:30 Eosinophils % (Manual) 2 % 03/09/17 05:30 Basophils % (Manual) 2 % 03/09/17 05:30 Neutrophils # (Manual) 0.00 k/uL (1.3-7.7) L 03/09/17 05:30 Lymphocytes # (Manual) 0.19 k/uL (1.0-4.8) L 03/09/17 05:30 Monocytes # (Manual) 0.07 k/uL (0-1.0) 03/09/17 05:30 Eosinophils # (Manual) 0.01 k/uL (0-0.7) 03/09/17 05:30 Basophils # (Manual) 0.01 k/uL (0-0.2) 03/09/17 05:30 Nucleated RBCs 0 /100 WBC (0-0) 03/09/17 05:30 Differential Comment 03/09/17 05:30 Manual Slide Review Performed 03/09/17 05:30 Poikilocytosis (manual Present 03/09/17 05:30 Anisocytosis Slight 03/08/17 13:34 PT 11.3 sec (9.0-12.0) 03/08/17 13:34 INR 1.1 (<1.2) 03/08/17 13:34 APTT 26.0 sec (22.0-30.0) 03/08/17 13:34 Sodium 130 mmol/L (137-145) L 03/09/17 05:30 Potassium 4.3 mmol/L (3.5-5.1) 03/09/17 05:30 Chloride 102 mmol/L (98-107) 03/09/17 05:30 Carbon Dioxide 24 mmol/L (22-30) 03/09/17 05:30 Anion Gap 4 mmol/L 03/09/17 05:30 BUN 11 mg/dL (7-17) 03/09/17 05:30 Creatinine 0.50 mg/dL (0.52-1.04) L 03/09/17 05:30 Est GFR (MDRD) Af Amer >60 (>60 ml/min/1.73 sqM) 03/09/17 05:30 Est GFR (MDRD) Non-Af >60 (>60 ml/min/1.73 sqM) 03/09/17 05:30 Glucose 256 mg/dL (74-99) H 03/09/17 05:30 POC Glucose (mg/dL) 268 mg/dL (75-99) H 03/09/17 11:18 POC Glu Bus Greaser ID Trinidad Cerrato 03/09/17 11:18 Calcium 8.1 mg/dL (8.4-10.2) L 03/09/17 05:30 Phosphorus 2.1 mg/dL (2.5-4.5) L 03/08/17 13:34 Magnesium 1.7 mg/dL (1.6-2.3) 03/08/17 13:34 Total Bilirubin 1.2 mg/dL (0.2-1.3) 03/08/17 13:34 AST 22 U/L (14-36) 03/08/17 13:34 ALT 44 U/L (9-52) 03/08/17 13:34 Alkaline Phosphatase 128 U/L (38-126) H 03/08/17 13:34 Total Protein 4.9 g/dL (6.3-8.2) L 03/08/17 13:34 Albumin 2.7 g/dL (3.5-5.0) L 03/08/17 13:34 Urine Color Yellow 03/08/17 14:50 Urine Appearance Clear (Clear) 03/08/17 14:50 Urine pH 8.0 (5.0-8.0) 03/08/17 14:50 Ur Specific Paia 1.022 (1.001-1.035) 03/08/17 14:50 Urine Protein Negative (Negative) 03/08/17 14:50 Urine Glucose (UA) 4+ (Negative) H 03/08/17 14:50 Urine Ketones Negative (Negative) 03/08/17 14:50 Urine Blood Negative (Negative) 03/08/17 14:50 Urine Nitrite Negative (Negative) 03/08/17 14:50 Urine Bilirubin Negative (Negative) 03/08/17 14:50 Urine Urobilinogen 8.0 mg/dL (<2.0) 03/08/17 14:50 Ur Leukocyte Esterase Negative (Negative) 03/08/17 14:50 Microbiology 03/08/17 13:34 Blood Blood Culture Gram Stain - Preliminary 03/08/17 13:34 Blood Blood Culture - Final 03/08/17 15:00 Urine,Catheterized Urine Culture - Preliminary Assessment and Plan (1) Febrile neutropenia Current Visit: Yes Status: Acute Code(s): D70.9 - NEUTROPENIA, UNSPECIFIED; R50.81 - FEVER PRESENTING WITH CONDITIONS CLASSIFIED ELSEWHERE SNOMED Code(s) : 792360369 (2) Gram-positive bacteremia Narrative/Plan: 56-year-old female presents to Hospital from the oncology clinic where she was feeling very poorly. The fevers chills some right flank pain generalized malaise. She relates is aware she's felt since she had blood clots over a year ago. She has a extensive history as noted of her abdominal pain which is found to be related to her non-Hodgkin's lymphoma for which she has now received 3 cycles of CHOP. Now presents with significant pancytopenia with leukopenia and sepsis. Blood culture reveals that gram-positive cocci in the blood. This could be related to the urinary system. But concern is also to her underlying [id number] is in the left anterior chest wall. Follow blood cultures are been requested. Follow-up cultures and her response to therapy will determine the next course of therapy. Ongoing supportive care which includes fluids and pain control have been helpful. Her fevers improved Pain is being managed with the morphine relatively well. At this time there are no other obvious sources of infection, she does not have evidence of cellulitis, or pneumonia. With improvement of her sepsis her elevated blood glucoses should also improve. Current Visit: Yes Status: Acute Priority: High Code(s): R78.81 - BACTEREMIA SNOMED Code(s): 391550833095 (3) Chemotherapy induced neutropenia Current Visit: Yes Status: Acute Code(s): D70.1 - AGRANULOCYTOSIS SECONDARY TO CANCER CHEMOTHERAPY; T45.1X5A - ADVERSE EFFECT OF ANTINEOPLASTIC AND IMMUNOSUP DRUGS, INIT SNOMED Code(s): 151120361
[2017-03-09 17:29] LABS: Glucose,Whole Blood 285 mg/dL (75-99)
--- NOTE | 2017-03-09 17:37 | P.CONS ---
History of Present Illness - Reason for Consult Consult date: 03/09/17 NHL, on chemo Requesting physician: Art Mays - Chief Complaint severe neutropenia with dysuria, suprapubic pain - History of Present Illness Nidhi was initially evaluated in October 2016, found to have a large abdominal & retroperitoneal mass, she was transferred to a tertiary care facility for work up, had core biopsy of mesenteric mass on 12/27/16 revealing Grade II Follicular Lymphoma, staging PET showed extensive involvement with lymphoma above & below diaphragm as well as suspicious lesion in the liver, stage IV-B, she is s/p 3 cycles of R-CHOP with treatment follow up PET just last week showing 80%-90% reduction in metabolic uptake! Pt was in office yesterday for f/u, she had c/o dysuria, hematuria, urgency, incontinence, suprapubic pain, increased low back pain, general malaize, progressive over the last 4 days, started after taking the PET scan, she denied elevated CBG, no fevers, but has had shaking chills, poor appetite, intermittent nausea, watery diarrhea, no diarrhea since admit. She was sent to hospital for cultures, empiric abx and hydration, pt has + blood cultures. She does states feeling better today, less pain in the suprapubic area, minor pain with urination, no chills, appetite is getting better. She has no other physical c/o on a 10 point ROS. 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 History of Any Multi-Drug Resistant Organisms: None Reported Past Surgical History: Adenoidectomy, Appendectomy, Back Surgery, Cholecystectomy, Hysterectomy, Orthopedic Surgery, Tonsillectomy Additional Past Surgical History / Comment(s): Recent abdominal mass biopsy x 2 , BMA, EGD/colonoscopy at [facility], bilateral carpal tunnel release, thyroidectomy (one tiny piece unable to remove), ORIF rt ankle, stents in LLE/ vascular stent, cervical surgery C4,C6, Past Anesthesia/Blood Transfusion Reactions: Postoperative Nausea & Vomiting ( PONV) Additional Past Anesthesia/Blood Transfusion Reaction / Comm: blood transfusion( December 2015) "pt stated an hour after transfusion became very nauseated and had quit a bit of vomiting" Past Psychological History: No Psychological Hx Reported Smoking Status: Never smoker Past Drug Use History: Unable to Obtain - Past Family History Mother Family Medical History: Diabetes Mellitus, Renal Disease Additional Family Medical History / Comment(s): Mother of kidney failure at the age of 69yrs. Father Family Medical History: Diabetes Mellitus Additional Family Medical History / Comment(s): Father of a "sugar coma" when he was 72 yrs old. Brother(s) Family Medical History: Cancer Sister(s) Family Medical History: Myocardial Infarction (OK) Additional Family Medical History / Comment(s): Patient has 3 sisters and 2 of them are diabetic. Son(s) Family Medical History: No Reported History (Patient has 4 sons no major medical problems) Additional Family Medical History / Comment(s): Patient has 4 sons with no major medical problems. Daughter(s) Family Medical History: Deep Vein Thrombosis (DVT) Additional Family Medical History / Comment(s): Patient has a daughter with DVT. Medications and Allergies Home Medications Medication Instructions Recorded Confirmed Type Sertraline [Zoloft] 200 mg PO HS 03/07/15 03/08/17 History Atorvastatin [Lipitor] 40 mg PO DAILY 02/10/16 03/08/17 History Lisinopril 10 mg PO DAILY 02/10/16 03/08/17 History Levothyroxine Sodium [Synthroid] 137 mcg PO DAILY 08/17/16 03/08/17 History Cranberry/Vit C 4200mg 1 tab PO DAILY PRN 12/19/16 03/08/17 History Glimepiride [Amaryl] 2 mg PO BID 12/19/16 03/08/17 History HYDROcodone/APAP 10-325MG [[employer] 1 tab PO Q4-6H PRN 12/19/16 03/08/17 History 10-325] Tolterodine ER [Detrol LA] 4 mg PO DAILY 12/19/16 03/08/17 History Insulin Lispro [humaLOG Kwikpen] See Protocol SQ AC-TID 03/08/17 03/08/17 History Loperamide HCl [Imodium A-D] 2 - 4 mg PO BID PRN 03/08/17 03/08/17 History Omeprazole [PriLOSEC] 10 mg PO DAILY 03/08/17 03/08/17 History Prochlorperazine [Compazine] 10 mg PO Q6H PRN 03/08/17 03/08/17 History Rivaroxaban [Xarelto] 20 mg PO DAILY 03/08/17 03/08/17 History predniSONE 100 mg PO DIRECTED 03/08/17 03/08/17 History Allergies Allergy/AdvReac Type Severity Reaction Status Date / Time Anesthetics - Amide Type AdvReac Nausea & Verified 03/08/17 14:58 Vomiting & Diarrhea Anesthetics - Jonna Type- AdvReac Nausea & Verified 03/08/17 14:58 Parabens Vomiting & Diarrhea Physical Exam Vitals: Vital Signs Temp Pulse Resp BP Pulse Ox 03/09/17 07:00 98.4 F 83 16 105/61 94 L 03/09/17 00:00 16 03/08/17 23:00 98.3 F 84 16 127/60 95 03/08/17 16:00 20 03/08/17 15:00 99.9 F H 83 20 127/72 99 Intake and Output 03/08/17 03/09/17 03/09/17 22:59 06:59 14:59 Intake Total 1120 1040 240 Balance 1120 1040 240 Intake: Intake, IV Titration 400 800 Amount Sodium Chloride 0.9% 1, 400 800 000 ml @ 100 mls/hr IV . Q10H BETTE Rx#:[id number] Oral 720 240 240 Other: # Voids 1 2 - Constitutional General appearance: cooperative, no acute distress, obese - EENT Eyes: anicteric sclerae, EOMI, normal appearance ENT: hearing grossly normal, normal oropharynx - Neck Neck: no lymphadenopathy - Respiratory Respiratory: bilateral: CTA - Cardiovascular Rhythm: regular Heart sounds: normal: S1, S2 Abnormal Heart Sounds: no systolic murmur, no diastolic murmur, no rub, no S3 Gallop, no S4 Gallop, no click, no other leg Peripheral Edema: bilateral: None - Gastrointestinal General gastrointestinal: no absent bowel sounds, no decreased bowel sounds, no distended, no hepatomegaly, no hyperactive bowel sounds, normal bowel sounds, no organomegaly, no rigid, no scaphoid, soft, no splenomegaly, tenderness, no umbilical hernia, no ventral hernia Localized gastrointestinal: tender: suprabubic - Integumentary Integumentary: normal - Neurologic Neurologic: CNII-XII intact - Musculoskeletal Musculoskeletal: strength equal bilaterally - Psychiatric Psychiatric: A&O x's 3, appropriate affect, intact judgment & insight Results CBC & Chem 7: 03/09/17 05:30 03/09/17 05:30 Labs: Abnormal Lab Results - Last 24 Hours (Table) 03/08/17 03/08/17 03/08/17 Range/Units 13:34 13:34 14:50 WBC 0.5 L* (3.8-10.6) k/uL RBC 2.93 L (3.80-5.40) m/uL Hgb 9.3 L D (11.4-16.0) gm/dL Hct 28.1 L (34.0-46.0) % RDW 16.3 H (11.5-15.5) % Plt Count 29 L* D (150-450) k/uL Neutrophils # (Manual) (1.3-7.7) k/uL Lymphocytes # (Manual) (1.0-4.8) k/uL Sodium 133 L (137-145) mmol/L Creatinine (0.52-1.04) mg/dL Glucose 256 H (74-99) mg/dL POC Glucose (mg/dL) (75-99) mg/dL Calcium 8.2 L (8.4-10.2) mg/dL Phosphorus 2.1 L (2.5-4.5) mg/dL Alkaline Phosphatase 128 H (38-126) U/L Total Protein 4.9 L (6.3-8.2) g/dL Albumin 2.7 L (3.5-5.0) g/dL Urine Glucose (UA) 4+ H (Negative) 03/08/17 03/08/17 03/09/17 Range/Units 17:31 20:25 05:30 WBC 0.3 L* (3.8-10.6) k/uL RBC 2.85 L (3.80-5.40) m/uL Hgb 9.1 L (11.4-16.0) gm/dL Hct 27.1 L (34.0-46.0) % RDW (11.5-15.5) % Plt Count 27 L* (150-450) k/uL Neutrophils # (Manual) 0.00 L (1.3-7.7) k/uL Lymphocytes # (Manual) 0.19 L (1.0-4.8) k/uL Sodium (137-145) mmol/L Creatinine (0.52-1.04) mg/dL Glucose (74-99) mg/dL POC Glucose (mg/dL) 236 H 293 H (75-99) mg/dL Calcium (8.4-10.2) mg/dL Phosphorus (2.5-4.5) mg/dL Alkaline Phosphatase (38-126) U/L Total Protein (6.3-8.2) g/dL Albumin (3.5-5.0) g/dL Urine Glucose (UA) (Negative) 03/09/17 03/09/17 03/09/17 Range/Units 05:30 07:20 11:18 WBC (3.8-10.6) k/uL RBC (3.80-5.40) m/uL Hgb (11.4-16.0) gm/dL Hct (34.0-46.0) % RDW (11.5-15.5) % Plt Count (150-450) k/uL Neutrophils # (Manual) (1.3-7.7) k/uL Lymphocytes # (Manual) (1.0-4.8) k/uL Sodium 130 L (137-145) mmol/L Creatinine 0.50 L (0.52-1.04) mg/dL Glucose 256 H (74-99) mg/dL POC Glucose (mg/dL) 251 H 268 H (75-99) mg/dL Calcium 8.1 L (8.4-10.2) mg/dL Phosphorus (2.5-4.5) mg/dL Alkaline Phosphatase (38-126) U/L Total Protein (6.3-8.2) g/dL Albumin (3.5-5.0) g/dL Urine Glucose (UA) (Negative) Microbiology - Last 24 Hours (Table) 03/08/17 13:34 Blood Culture Gram Stain - Preliminary Blood 03/08/17 13:34 Blood Culture - Final Blood 03/08/17 15:00 Urine Culture - Preliminary Urine,Catheterized Comments: cultures reviewed Chest x-ray: report reviewed CT scan - abdomen: report reviewed CT scan - pelvis: report reviewed Assessment and Plan (1) Gram-positive bacteremia Narrative/Plan: C&S pending finalization, empiric antibiotics ordered, ID consulted. Current Visit: Yes Status: Acute Priority: High Code(s): R78.81 - BACTEREMIA SNOMED Code(s): 173976276317 (2) Pancytopenia Narrative/Plan: Secondary to chemotherapy, exacerbated by bactremia. Pt received GCSF 03/02, no PRBC or platelet transfusion at this time. No asa, NSAIDs, motrin or anticoagulants Current Visit: Yes Status: Acute Priority: Medium Code(s): D61.818 - OTHER PANCYTOPENIA SNOMED Code(s): 350931846 (3) Diarrhea Narrative/Plan: Pending collection of specimen Current Visit: Yes Status: Acute Priority: High Code(s): R19.7 - DIARRHEA , UNSPECIFIED SNOMED Code(s): 10287499 (4) Non-Hodgkin lymphoma of extranodal and solid organ sites Narrative/Plan: Pt is s/p 3/6 R-CHOP cycles with neulasta. Pt had treatment f/u imaging with 80 %-90% decrease in malignant metabolic uptake. Pt will continue on treatment as an outpatient. Current Visit: Yes Status: Acute Priority: High Code(s): C85.99 - NON- HODGKIN LYMPHOMA, UNSP, EXTRANODAL AND SOLID ORGAN SITES SNOMED Code(s): 788962827
[2017-03-09 20:46] LABS: Glucose,Whole Blood 292 mg/dL (75-99)
[2017-03-09] MEDS: SERTRALINE 100 MG TAB PO SCH (20:46)
[2017-03-10] MEDS: HYDROcodone/APAP 10-325MG 1 EACH TAB PO PRN ×4 (04:35→20:42)
[2017-03-10] MEDS: SODIUM CHLORIDE 0.9% 1,000 ML IV SCH ×2 (04:36→16:57)
[2017-03-10] MEDS: LEVOTHYROXINE 137 MCG TAB PO SCH (06:16)
[2017-03-10 06:28] LABS: CH 31.8; CHCM 34.2; HCT 23.5 % (34.0-46.0); HDW 3.22; HGB 7.9 gm/dL (11.4-16.0); MCH 31.4 pg (25.0-35.0); MCHC 33.5 g/dL (31.0-37.0); MCV 93.5 fL (80.0-100.0); Mean Platelet Volume 9.5; RBC 2.51 m/uL (3.80-5.40); RDW 14.7 % (11.5-15.5); WBC (Perox) 0.57
[2017-03-10 06:29] LABS: WBC 0.6 k/uL (3.8-10.6)
[2017-03-10 06:40] LABS: Add Differential Manual Differential
[2017-03-10 06:41] LABS: Manual Review Performed
[2017-03-10 06:55] LABS: Anion Gap 3 mmol/L; Blood Urea Nitrogen 8 mg/dL (7-17); Carbon Dioxide 26 mmol/L (22-30); Chloride 105 mmol/L (98-107); Glucose 235 mg/dL (74-99); Non-African American GFR(MDRD) >60 (>60 ml/min/1.73 sqM); Potassium 3.9 mmol/L (3.5-5.1); Sodium 134 mmol/L (137-145)
[2017-03-10 07:24] LABS: Glucose,Whole Blood 241 mg/dL (75-99)
[2017-03-10] MEDS: PANTOPRAZOLE 40 MG TABLET PO SCH (07:49)
[2017-03-10] MEDS: INSULIN LISPRO (humaLOG) 300 UNIT/3 ML VIAL SQ SCH ×4 (07:49→20:43)
[2017-03-10] MEDS: ATORVASTATIN 40 MG TAB PO SCH (10:00)
[2017-03-10] MEDS: RIVAROXABAN 10 MG TAB PO SCH (10:00)
[2017-03-10] MEDS: LISINOPRIL 10 MG TAB PO SCH (10:00)
[2017-03-10] MEDS: CEFEPIME 1 GM in SODIUM CHLORIDE 0.9% 50 ML IVPB SCH ×2 (10:14→20:44)
[2017-03-10] MEDS: MORPHINE SULFATE 10 MG/ML SYRINGE IV PRN ×2 (10:24→16:52)
[2017-03-10] MEDS: VANCOMYCIN 2,000 MG in SODIUM CHLORIDE 0.9% 500 ML IVPB SCH ×2 (10:54→21:49)
[2017-03-10 11:04] LABS: Glucose,Whole Blood 302 mg/dL (75-99)
--- NOTE | 2017-03-10 13:59 | P.PN ---
Subjective Progress Note Date: 03/10/17 Principal diagnosis: The patient is a 56-year-old morbidly obese female with a history of non-Hodgkin's lymphoma was undergone 3 rounds of HOP chemotherapy that was admitted for neutropenia with subjective fevers and chills initially thought to be secondary to UTI, she has previously received [address] abdomen and pelvis suggesting Persistent mesenteric ill-defined mass or adenopathy differential includes panniculitis or infection/inflammation and neoplasm, urinalysis was actually negative blood cultures are positive G+ cocci in clusters, she was started empirically on cefepime and vancomycin has been added. Patient feeling very fatigued today, denies any shortness of air problems breathing. Patient has not had any diarrhea or bowel movement since being admitted. Does complain of left lower quadrant abdominal pain. Afebrile overnight. Otherwise no acute events eating well blood sugars have been elevated, feeling more energetic today. Eating lunch and otherwise has no complaints Objective - Vital Signs Vital signs: Vital Signs Temp 97.5 F L 03/10/17 08:25 Pulse 76 03/10/17 10:24 Resp 16 03/10/17 10:24 BP 119/62 03/10/17 08:25 Pulse Ox 98 03/10/17 08:25 Intake & Output 03/09/17 03/10/17 03/10/17 18:59 06:59 18:59 Intake Total 1330 1420 Balance 1330 1420 Weight 122.47 kg Intake: Intake, IV Titration 850 Amount Cefepime 1 gm In Sodium 50 Chloride 0.9% 50 ml @ 100 mls/hr IVPB Q12HR BETTE Rx #:[id number] Sodium Chloride 0.9% 1, 300 000 ml @ 100 mls/hr IV . Q10H BETTE Rx#:[id number] Vancomycin 2,000 mg In 500 Sodium Chloride 0.9% 500 ml @ 167 mls/hr IVPB Q12HR BETTE Rx#:[id number] Oral 480 1420 Other: # Voids 3 2 - Exam Constitutional: No acute distress, conversant, pleasant Eyes: Anicteric sclerae, moist conjunctiva, no lid-lag, PERRLA ENMT: NC/AT,Oropharynx clear, no erythema, exudates Neck:Supple, FROM, no masses, or JVD, No carotid bruits; No thyromegaly Lungs: Clear to auscultation, Clear to percussion, Normal respiratory effort, no accessory muscle use Cardiovascular: Heart regular in rate and rhythm, No murmurs, gallops, or rubs no peripheral edema Abdominal: Obese abdomen with pannus, mildly tender in the left lower quadrant/ pannus area non distended, no guarding, no rebound or rigidity, Normoactive bowel sounds No hepatomegaly, No splenomegaly, No palpable mass No abdominal wall hernia noted Skin: Normal temperature, tone, texture, turgor, No induration No subcutaneous nodules, No rash, lesions, No ulcers Extremities:No digital cyanosis No clubbing, Pedal pulses intact and symmetrical Radial pulses intact and symmetrical Normal gait and station, No calf tenderness Psychiatric: Alert and oriented to person, place and time, Appropriate affect Intact judgement Neuro: Muscles Strength 5/5 in all 4 extremities, Sensation to light touch grossly present throughout, Cranial nerves II-XII grossly intact. No focal sensory deficits - Labs CBC & Chem 7: 03/10/17 06:20 03/10/17 06:20 Labs: Abnormal Lab Results - Last 24 Hours (Table) 03/09/17 03/09/17 03/09/17 Range/Units 06:00 17:27 20:39 WBC (3.8-10.6) k/uL RBC (3.80-5.40) m/uL Hgb (11.4-16.0) gm/dL Hct (34.0-46.0) % Plt Count (150-450) k/uL Sodium (137-145) mmol/L Glucose (74-99) mg/dL POC Glucose (mg/dL) 285 H 292 H (75-99) mg/dL Hemoglobin A1c 8.6 H (4.0-6.0) % Calcium (8.4-10.2) mg/dL 03/10/17 03/10/17 03/10/17 Range/Units 06:20 06:20 07:11 WBC 0.6 L* (3.8-10.6) k/uL RBC 2.51 L (3.80-5.40) m/uL Hgb 7.9 L (11.4-16.0) gm/dL Hct 23.5 L (34.0-46.0) % Plt Count 20 L* (150-450) k/uL Sodium 134 L (137-145) mmol/L Glucose 235 H (74-99) mg/dL POC Glucose (mg/dL) 241 H (75-99) mg/dL Hemoglobin A1c (4.0-6.0) % Calcium 8.0 L (8.4-10.2) mg/dL 03/10/17 Range/Units 10:54 WBC (3.8-10.6) k/uL RBC (3.80-5.40) m/uL Hgb (11.4-16.0) gm/dL Hct (34.0-46.0) % Plt Count (150-450) k/uL Sodium (137-145) mmol/L Glucose (74-99) mg/dL POC Glucose (mg/dL) 302 H (75-99) mg/dL Hemoglobin A1c (4.0-6.0) % Calcium (8.4-10.2) mg/dL Microbiology - Last 24 Hours (Table) 03/08/17 13:34 Blood Culture Gram Stain - Preliminary Blood Blood Culture - Preliminary Coagulase Negative Staph 03/08/17 15:00 Urine Culture - Preliminary Urine,Catheterized Gram Neg Bacilli 03/08/17 15:13 Blood Culture - Preliminary Blood No Growth after 24 hours Assessment and Plan (1) Febrile neutropenia Narrative/Plan: * Chemotherapy induced superimposed on bacteremia/UTI * Hematology oncology following appreciate the recommendations * Patient continues to be neutropenic we'll continue to monitor, afebrile overnight Current Visit: Yes Status: Acute Code(s): D70.9 - NEUTROPENIA, UNSPECIFIED; R50.81 - FEVER PRESENTING WITH CONDITIONS CLASSIFIED ELSEWHERE SNOMED Code(s) : 297088969 (2) Gram-positive bacteremia Narrative/Plan: * Peripheral preliminary blood cultures growing bone positive cocci Coag neg Staph, urince Culture Gram neg bacilli * Continue with cefepime will expand coverage to include vancomycin * IV following appreciate Dr. Patel Recommendations Current Visit: Yes Status: Acute Priority: High Code(s): R78.81 - BACTEREMIA SNOMED Code(s): 633336784584 (3) Pancytopenia Narrative/Plan: * Continue to follow CBCs no indications for transfusions at this time, we'll monitor closely Current Visit: Yes Status: Acute Priority: Medium Code(s): D61.818 - OTHER PANCYTOPENIA SNOMED Code(s): 521970066 (4) Type 2 diabetes mellitus with hyperglycemia Narrative/Plan: * Blood sugars elevated secondary to infection, continue with correctional scale insulin will add lantus 10 U sq QHS * A1c 8.6 Current Visit: Yes Status: Acute Code(s): E11.65 - TYPE 2 DIABETES MELLITUS WITH HYPERGLYCEMIA SNOMED Code(s): 845916027869937 (5) Hyponatremia Narrative/Plan: * Mild hyponatremia improving likely secondary to dehydration * Continue with IV fluids Current Visit: Yes Status: Acute Code(s): E87.1 - HYPO-OSMOLALITY AND HYPONATREMIA SNOMED Code(s): 10754614 (6) Left lower quadrant pain Current Visit: Yes Status: Acute Code(s): R10.32 - LEFT LOWER QUADRANT PAIN SNOMED Code(s): 478837102 (7) Diarrhea Narrative/Plan: * Patient has not had any bowel movements or diarrhea, as yet. Stool hat in the restroom in case she does Current Visit: Yes Status: Acute Priority: High Code(s): R19.7 - DIARRHEA , UNSPECIFIED SNOMED Code(s): 01052805
[2017-03-10 17:24] LABS: Glucose,Whole Blood 239 mg/dL (75-99)
[2017-03-10] MEDS: ONDANSETRON 4 MG/2 ML VIAL IVP PRN (18:23)
[2017-03-10] MEDS: INSULIN GLARGINE 100 UNIT/ML 10 ML VIAL SQ SCH (20:43)
[2017-03-10 20:44] LABS: Glucose,Whole Blood 265 mg/dL (75-99)
[2017-03-10] MEDS: SERTRALINE 100 MG TAB PO SCH (20:44)
[2017-03-11] MEDS: HYDROcodone/APAP 10-325MG 1 EACH TAB PO PRN ×3 (05:00→22:50)
[2017-03-11 05:25] LABS: CH 32.2; CHCM 34.4; HGB 8.2 gm/dL (11.4-16.0); MCH 30.8 pg (25.0-35.0); MCHC 32.8 g/dL (31.0-37.0); MCV 93.9 fL (80.0-100.0); Mean Platelet Volume 9.3; RBC 2.66 m/uL (3.80-5.40); WBC (Perox) 1.14
[2017-03-11 05:27] LABS: WBC 1.1 k/uL (3.8-10.6)
[2017-03-11 05:34] LABS: Anion Gap 3 mmol/L; Blood Urea Nitrogen 6 mg/dL (7-17); Calcium 8.3 mg/dL (8.4-10.2); Carbon Dioxide 26 mmol/L (22-30); Chloride 106 mmol/L (98-107); Glucose 152 mg/dL (74-99); Non-African American GFR(MDRD) >60 (>60 ml/min/1.73 sqM); Potassium 3.9 mmol/L (3.5-5.1); Sodium 135 mmol/L (137-145)
[2017-03-11 05:54] LABS: Add Differential Manual Differential
[2017-03-11 06:04] LABS: Manual Review Performed; Nucleated Red Blood Cells 0 /100 WBC (0-0); Total Cells Counted 100
[2017-03-11] MEDS: LEVOTHYROXINE 137 MCG TAB PO SCH (06:21)
[2017-03-11 07:19] LABS: Glucose,Whole Blood 173 mg/dL (75-99)
[2017-03-11] MEDS ORDERED: VANCOMYCIN TROUGH DUE 1 EACH MISC MISCELLANE ONE (08:00)
[2017-03-11] MEDS: MORPHINE SULFATE 10 MG/ML SYRINGE IV PRN ×3 (08:30→15:29)
[2017-03-11] MEDS: SODIUM CHLORIDE 0.9% 1,000 ML IV SCH (08:39)
[2017-03-11] MEDS: INSULIN LISPRO (humaLOG) 300 UNIT/3 ML VIAL SQ SCH ×4 (08:40→20:48)
[2017-03-11] MEDS: PANTOPRAZOLE 40 MG TABLET PO SCH (08:41)
[2017-03-11] MEDS: LISINOPRIL 10 MG TAB PO SCH (08:42)
[2017-03-11] MEDS: ATORVASTATIN 40 MG TAB PO SCH (08:42)
[2017-03-11] MEDS: CEFEPIME 1 GM in SODIUM CHLORIDE 0.9% 50 ML IVPB SCH ×2 (08:42→20:23)
[2017-03-11] MEDS: RIVAROXABAN 10 MG TAB PO SCH ×2 (08:42→18:02)
--- NOTE | 2017-03-11 10:10 | P.PN ---
Subjective Progress Note Date: 03/11/17 Principal diagnosis: The patient is a 56-year-old morbidly obese female with a history of non-Hodgkin's lymphoma was undergone 3 rounds of HOP chemotherapy that was admitted for neutropenia with subjective fevers and chills initially thought to be secondary to UTI, she has previously received [address] abdomen and pelvis suggesting Persistent mesenteric ill-defined mass or adenopathy differential includes panniculitis or infection/inflammation and neoplasm, urinalysis was actually negative blood cultures are positive G+ cocci in clusters, she was started empirically on cefepime and vancomycin has been added. Patient feeling very fatigued today, denies any shortness of air problems breathing. Patient has not had any diarrhea or bowel movement since being admitted. Afebrile overnight, reports that episode of nausea and vomiting after having a shake yesterday, reportedly had breakfast without any further issues today denies any nausea Objective - Vital Signs Vital signs: Vital Signs Temp 97.9 F 03/11/17 07:00 Pulse 72 03/11/17 07:00 Resp 18 03/11/17 07:00 BP 122/63 03/11/17 07:00 Pulse Ox 97 03/11/17 07:00 Intake & Output 03/10/17 03/11/17 03/11/17 18:59 06:59 18:59 Intake Total 240 2910 Balance 240 2910 Intake: Intake, IV Titration 1950 Amount Cefepime 1 gm In Sodium 50 Chloride 0.9% 50 ml @ 100 mls/hr IVPB Q12HR BETTE Rx #:[id number] Sodium Chloride 0.9% 1, 900 000 ml @ 100 mls/hr IV . Q10H BETTE Rx#:[id number] Vancomycin 2,000 mg In 1000 Sodium Chloride 0.9% 500 ml @ 167 mls/hr IVPB Q12HR BETTE Rx#:[id number] Oral 240 960 Other: Voiding Method Toilet Toilet # Voids 2 2 - Exam Constitutional: No acute distress, conversant, pleasant Eyes: Anicteric sclerae, moist conjunctiva, no lid-lag, PERRLA ENMT: NC/AT,Oropharynx clear, no erythema, exudates Neck:Supple, FROM, no masses, or JVD, No carotid bruits; No thyromegaly Lungs: Clear to auscultation, Clear to percussion, Normal respiratory effort, no accessory muscle use Cardiovascular: Heart regular in rate and rhythm, No murmurs, gallops, or rubs no peripheral edema Abdominal: Obese abdomen with pannus, mildly tender in the left lower quadrant/ pannus area non distended, no guarding, no rebound or rigidity, Normoactive bowel sounds No hepatomegaly, No splenomegaly, No palpable mass No abdominal wall hernia noted Skin: Normal temperature, tone, texture, turgor, No induration No subcutaneous nodules, No rash, lesions, No ulcers Extremities:No digital cyanosis No clubbing, Pedal pulses intact and symmetrical Radial pulses intact and symmetrical Normal gait and station, No calf tenderness Psychiatric: Alert and oriented to person, place and time, Appropriate affect Intact judgement Neuro: Muscles Strength 5/5 in all 4 extremities, Sensation to light touch grossly present throughout, Cranial nerves II-XII grossly intact. No focal sensory deficits - Labs CBC & Chem 7: 03/11/17 05:10 03/11/17 05:10 Labs: Abnormal Lab Results - Last 24 Hours (Table) 03/10/17 03/10/17 03/10/17 Range/Units 10:54 17:17 20:31 WBC (3.8-10.6) k/uL RBC (3.80-5.40) m/uL Hgb (11.4-16.0) gm/dL Hct (34.0-46.0) % Plt Count (150-450) k/uL Neutrophils # (Manual) (1.3-7.7) k/uL Lymphocytes # (Manual) (1.0-4.8) k/uL Sodium (137-145) mmol/L BUN (7-17) mg/dL Glucose (74-99) mg/dL POC Glucose (mg/dL) 302 H 239 H 265 H (75-99) mg/dL Calcium (8.4-10.2) mg/dL 03/11/17 03/11/17 03/11/17 Range/Units 05:10 05:10 06:45 WBC 1.1 L* (3.8-10.6) k/uL RBC 2.66 L (3.80-5.40) m/uL Hgb 8.2 L (11.4-16.0) gm/dL Hct 25.0 L (34.0-46.0) % Plt Count 25 L* (150-450) k/uL Neutrophils # (Manual) 0.36 L (1.3-7.7) k/uL Lymphocytes # (Manual) 0.56 L (1.0-4.8) k/uL Sodium 135 L (137-145) mmol/L BUN 6 L (7-17) mg/dL Glucose 152 H (74-99) mg/dL POC Glucose (mg/dL) 173 H (75-99) mg/dL Calcium 8.3 L (8.4-10.2) mg/dL Microbiology - Last 24 Hours (Table) 03/08/17 15:00 Urine Culture - Final Urine,Catheterized Escherichia coli 03/09/17 17:29 Blood Culture - Preliminary Blood No Growth after 24 hours 03/09/17 17:00 Blood Culture - Preliminary Blood No Growth after 24 hours 03/08/17 15:13 Blood Culture - Preliminary Blood No Growth after 48 hours 03/08/17 13:34 Blood Culture Gram Stain - Preliminary Blood Blood Culture - Preliminary Coagulase Negative Staph Assessment and Plan (1) Febrile neutropenia Narrative/Plan: * Chemotherapy induced superimposed on bacteremia/UTI * Hematology oncology following appreciate the recommendations * Patient continues to be neutropenic but ANC improving, afebrile overnight Current Visit: Yes Status: Acute Code(s): D70.9 - NEUTROPENIA, UNSPECIFIED; R50.81 - FEVER PRESENTING WITH CONDITIONS CLASSIFIED ELSEWHERE SNOMED Code(s) : 280847396 (2) Gram-positive bacteremia Narrative/Plan: * Peripheral preliminary blood cultures growing bone positive cocci Coag neg Staph, urince Culture Gram neg bacilli * Continue with cefepime will expand coverage to include vancomycin * IV following appreciate Dr. Patel Recommendations Current Visit: Yes Status: Acute Priority: High Code(s): R78.81 - BACTEREMIA SNOMED Code(s): 822608406386 (3) E. coli UTI Narrative/Plan: * treated with cefepime Current Visit: Yes Status: Resolved Code(s): N39.0 - URINARY TRACT INFECTION , SITE NOT SPECIFIED; B96.20 - UNSP ESCHERICHIA COLI THE CAUSE OF DISEASES CLASSD [facility] SNOMED Code(s): 794282256 (4) Type 2 diabetes mellitus with hyperglycemia Narrative/Plan: * Blood sugars elevated secondary to infection but much improved today, continue with correctional scale insulin and continue lantus 10 U sq QHS * A1c 8.6 Current Visit: Yes Status: Acute Code(s): E11.65 - TYPE 2 DIABETES MELLITUS WITH HYPERGLYCEMIA SNOMED Code(s): 345674004184419 (5) Pancytopenia Narrative/Plan: * Continue to follow CBCs no indications for transfusions at this time, we'll monitor closely Current Visit: Yes Status: Acute Priority: Medium Code(s): D61.818 - OTHER PANCYTOPENIA SNOMED Code(s): 085316754 (6) Hyponatremia Narrative/Plan: * now resolved was likely secondary to dehydration * d/c IV fluids Current Visit: Yes Status: Resolved Code(s): E87.1 - HYPO-OSMOLALITY AND HYPONATREMIA SNOMED Code(s): 60990275 (7) Left lower quadrant pain Current Visit: Yes Status: Acute Code(s): R10.32 - LEFT LOWER QUADRANT PAIN SNOMED Code(s): 367655783 (8) Diarrhea Narrative/Plan: * Patient has not had any bowel movements or diarrhea, as yet. Stool hat in the restroom in case she does Current Visit: Yes Status: Acute Priority: High Code(s): R19.7 - DIARRHEA , UNSPECIFIED SNOMED Code(s): 85425018
[2017-03-11 11:03] LABS: Glucose,Whole Blood 235 mg/dL (75-99)
[2017-03-11] MEDS: VANCOMYCIN 2,000 MG in SODIUM CHLORIDE 0.9% 500 ML IVPB SCH ×2 (13:17→20:15)
[2017-03-11 17:18] LABS: Glucose,Whole Blood 240 mg/dL (75-99)
[2017-03-11] MEDS: ONDANSETRON 4 MG/2 ML VIAL IVP PRN (18:11)
[2017-03-11 20:43] LABS: Glucose,Whole Blood 274 mg/dL (75-99)
[2017-03-11] MEDS: SERTRALINE 100 MG TAB PO SCH (20:48)
[2017-03-11] MEDS: INSULIN GLARGINE 100 UNIT/ML 10 ML VIAL SQ SCH (20:48)
[2017-03-12] MEDS: MORPHINE SULFATE 10 MG/ML SYRINGE IV PRN (00:13)
[2017-03-12 05:57] LABS: Anisocytosis Slight; Basophils % (A) 1 %; CH 31.8; CHCM 33.9; Eosinophils # (A) 0.1 k/uL (0-0.7); Eosinophils % (A) 2 %; HCT 27.5 % (34.0-46.0); HDW 3.04; HGB 8.9 gm/dL (11.4-16.0); Luc # (Auto) 0.13; Luc % (Auto) 4; Lymphocytes # (A) 0.7 k/uL (1.0-4.8); Lymphocytes % (A) 23 %; MCH 30.4 pg (25.0-35.0); MCHC 32.2 g/dL (31.0-37.0); MCV 94.4 fL (80.0-100.0); Mean Platelet Volume 9.3; Monocytes # (A) 0.3 k/uL (0-1.0); Monocytes % (A) 10 %; Neutrophils # (A) 1.9 k/uL (1.3-7.7); Neutrophils % (A) 60 %; RBC 2.91 m/uL (3.80-5.40); RDW 17.3 % (11.5-15.5); WBC 3.2 k/uL (3.8-10.6); WBC (Perox) 3.14
[2017-03-12] MEDS: HYDROcodone/APAP 10-325MG 1 EACH TAB PO PRN ×3 (06:07→20:45)
[2017-03-12] MEDS: LEVOTHYROXINE 137 MCG TAB PO SCH (06:07)
[2017-03-12 06:09] LABS: Anion Gap 3 mmol/L; Blood Urea Nitrogen 5 mg/dL (7-17); Calcium 8.7 mg/dL (8.4-10.2); Carbon Dioxide 30 mmol/L (22-30); Chloride 106 mmol/L (98-107); Glucose 126 mg/dL (74-99); Non-African American GFR(MDRD) >60 (>60 ml/min/1.73 sqM); Potassium 3.9 mmol/L (3.5-5.1); Sodium 139 mmol/L (137-145)
[2017-03-12 07:13] LABS: Glucose,Whole Blood 147 mg/dL (75-99)
[2017-03-12] MEDS: PANTOPRAZOLE 40 MG TABLET PO SCH (07:42)
[2017-03-12] MEDS: CEFEPIME 1 GM in SODIUM CHLORIDE 0.9% 50 ML IVPB SCH (07:42)
[2017-03-12] MEDS: ATORVASTATIN 40 MG TAB PO SCH (07:42)
[2017-03-12] MEDS: RIVAROXABAN 10 MG TAB PO SCH (07:43)
[2017-03-12] MEDS: LISINOPRIL 10 MG TAB PO SCH ×2 (07:43→08:48)
[2017-03-12] MEDS: INSULIN LISPRO (humaLOG) 300 UNIT/3 ML VIAL SQ SCH ×4 (07:44→20:45)
[2017-03-12] MEDS: VANCOMYCIN 2,000 MG in SODIUM CHLORIDE 0.9% 500 ML IVPB SCH (08:27)
--- NOTE | 2017-03-12 10:13 | P.PN ---
Subjective Progress Note Date: 03/12/17 Principal diagnosis: Febrile neutropenia Issue is a 48-year-old morbidly obese female with history of non- Hodgkin status post 3/6 rounds of our CHOP chemotherapy, hypertension, and diabetes mellitus type 2 who was sent over from the oncology office with neutropenia and subjective fevers. There is concern for possible urinary tract infection. On arrival here she was started on antibiotics. Her initial vital signs showed a fever of 99.9. Initial laboratory analysis showed pancytopenia with a white blood cell count of 0.5. She underwent a CT abdomen and pelvis which was essentially unchanged from prior redemonstrating her mesenteric mass. She also had blood cultures done which resulted 1/4 positive for Gram- positive bacteremia, infectious disease had been consulted initially and she been started on vancomycin, ultimately this was found to be a contaminant. She has a history of bleeding on her eliquis this with her low platelets and oncology has stopped this as outpatient. She was also noted to have hypotension may treat me and was started on IV fluids. Her white blood cell count had normalized by the morning of 03/12. Her urinary tract infection came back E. coli that was pansensitive. She was transitioned off Vanco and cefepime and onto Augmentin to complete a course of therapy. Patient seen and examined at bedside. She complains of nausea and abdominal pain. She does have chronic abdominal pain but she states this is slightly increased. She has any chest pain or shortness of breath. She does not feel well enough to go home yet she continues to have frequent urination and is unable to control her urine. She also feels fatigued. Objective - Vital Signs Vital signs: Vital Signs Temp 98 F 03/12/17 07:00 Pulse 67 03/12/17 07:00 Resp 20 03/12/17 07:00 BP 101/58 03/12/17 07:00 Pulse Ox 94 L 03/12/17 07:00 Intake & Output 03/11/17 03/12/17 03/12/17 18:59 06:59 18:59 Intake Total 360 590 Balance 360 590 Weight 122.47 kg Intake: Oral 360 590 Other: Voiding Method Toilet Toilet Toilet # Voids 2 3 # Bowel Movements 1 - Exam General: non toxic, no distress, appears older than stated age, obese Derm: no rashes, no lesions Head: atraumatic, normocephalic, symmetric Eyes: EOMI, no lid lag, anicteric sclera Mouth: no lip lesion, mucus membranes moist Cardiovascular: S1S2 reg, no murmur, positive posterior tibial pulse bilateral, Lungs: Crackles bilateral bases , no accessory muscle use Abdominal: soft, nontender to palpation, no guarding, no appreciable organomegaly Ext: no gross muscle atrophy, no edema, no contractures Neuro: CN II-XI grossly intact, no focal neuro deficits Psych: Alert, oriented, appropriate affect - Labs CBC & Chem 7: 03/12/17 05:50 03/12/17 05:50 Labs: Abnormal Lab Results - Last 24 Hours (Table) 03/11/17 03/11/17 03/11/17 Range/Units 10:53 17:16 20:42 WBC (3.8-10.6) k/uL RBC (3.80-5.40) m/uL Hgb (11.4-16.0) gm/dL Hct (34.0-46.0) % RDW (11.5-15.5) % Plt Count (150-450) k/uL Lymphocytes # (1.0-4.8) k/uL BUN (7-17) mg/dL Glucose (74-99) mg/dL POC Glucose (mg/dL) 235 H 240 H 274 H (75-99) mg/dL 03/12/17 03/12/17 03/12/17 Range/Units 05:50 05:50 07:11 WBC 3.2 L (3.8-10.6) k/uL RBC 2.91 L (3.80-5.40) m/uL Hgb 8.9 L (11.4-16.0) gm/dL Hct 27.5 L (34.0-46.0) % RDW 17.3 H (11.5-15.5) % Plt Count 44 L* D (150-450) k/uL Lymphocytes # 0.7 L (1.0-4.8) k/uL BUN 5 L (7-17) mg/dL Glucose 126 H (74-99) mg/dL POC Glucose (mg/dL) 147 H (75-99) mg/dL Microbiology - Last 24 Hours (Table) 03/08/17 13:34 Blood Culture Gram Stain - Final Blood Blood Culture - Final Staphylococcus lugdunenisis 03/09/17 17:29 Blood Culture - Preliminary Blood No Growth after 48 hours 03/09/17 17:00 Blood Culture - Preliminary Blood No Growth after 48 hours 03/08/17 15:13 Blood Culture - Preliminary Blood No Growth after 72 hours Assessment and Plan Plan: E. coli UTI - Change from cefepime to Augmentin as WBC count is normalized. Gram positive bacteremia, ruled out - appears to have been a containment with only 1/4 cultures positive. - stop Vanco - ID recs appreciated Non Hodgkin lymphoma - S/P 3 rounds of R-CHOP with 80-90% decrease in malignant uptake - continue outpatient follow-up with Oncology Chemotherapy induced pancytopenia - follow CBC - appears to be recovering DM2 with hyperglycemia, improving LLQ pain - contonie with Morbid obesity BMI 44.9 - outpatient structured weight loss Diarrhea, resolved Febrile neutropenia, resolved Hyponatremia, resolved DVT prophylaxis: SCDs Discussed with: patient, nursing, Dr. Alvarez Anticipated discharge: [address]: home A total of 35 minutes was spent on the care of this complex patient more than 50 % of the time was spent in counseling and care coordination.
[2017-03-12 11:24] LABS: Glucose,Whole Blood 274 mg/dL (75-99)
--- NOTE | 2017-03-12 16:55 | P.PN ---
Subjective Progress Note Date: 03/12/17 Principal diagnosis: fever and weakness 56-year-old female has obesity was having difficulties earlier this year with ongoing pain in her upper abdomen and lower chest. She was out for a while to have pleurisy. However imaging studies were markedly abnormal. She was referred to [facility] where she underwent her interventions which revealed evidence of her non-Hodgkin's lymphoma in the mesentery and her liver. She's now received 3 courses of our CHOP therapy. Receiving Neulasta also. She has had neutropenia consistently with her treatments. She now presents to the routine office visit where she's feeling ill with fevers chills and markedly abnormal urine and significant lower abdominal and some right flank pain. Markedly abnormal urine was found and she was admitted to hospital with neutropenic sepsis. Patient feeling considerably better today. tolerating antibiotic therapy well. She has no other new acute complaints. Objective - Vital Signs Vital signs: Vital Signs Temp 97.9 F 03/12/17 15:00 Pulse 82 03/12/17 15:00 Resp 20 03/12/17 15:00 BP 129/77 03/12/17 15:00 Pulse Ox 98 03/12/17 15:00 Intake & Output 03/11/17 03/12/17 03/12/17 18:59 06:59 18:59 Intake Total 360 590 550 Balance 360 590 550 Weight 122.47 kg 122.47 kg Intake: Intake, IV Titration 550 Amount Cefepime 1 gm In Sodium 50 Chloride 0.9% 50 ml @ 100 mls/hr IVPB Q12HR BETTE Rx #:[id number] Vancomycin 2,000 mg In 500 Sodium Chloride 0.9% 500 ml @ 167 mls/hr IVPB Q12HR BETTE Rx#:[id number] Oral 360 590 Other: Voiding Method Toilet Toilet Toilet # Voids 2 3 # Bowel Movements 1 - Exam 56-year-old woman who has obesity and generalized complaints of malaise and abdominal pain which is now improved HEENT: Anicteric conjunctiva are pink and moist nasal mucosa grossly intact without significant lesions, there is no thrush. Neck: The neck is supple without significant lymphadenopathy or thyromegaly. Lungs: Good bilateral air entry without significant crackles or wheezing. There is no significant bronchial sounds. There is no egophony or dullness. Heart: Regular rate and rhythm with an audible S1-S2, no S3 no S4. There is no significant murmur click or rub, PMI was nondisplaced. Abdomen: Obese, Positive bowel sounds soft distinctly tender into the right flank area and in the epigastric area. No palpable masses noted. No guarding or rebound. No bruising to the abdominal wall. Extremities: The upper extremities have excellent pulses they are symmetric, no significant petechiae or telangiectasia. No splinter hemorrhages were noted. The lower extremities are free from significant edema. The peripheral pulses were 2+ and symmetric. Neuro: Awake alert oriented to person place and - Labs CBC & Chem 7: 03/12/17 05:50 03/12/17 05:50 Labs: Abnormal Lab Results - Last 24 Hours (Table) 03/11/17 03/11/17 03/12/17 Range/Units 17:16 20:42 05:50 WBC 3.2 L (3.8-10.6) k/uL RBC 2.91 L (3.80-5.40) m/uL Hgb 8.9 L (11.4-16.0) gm/dL Hct 27.5 L (34.0-46.0) % RDW 17.3 H (11.5-15.5) % Plt Count 44 L* D (150-450) k/uL Lymphocytes # 0.7 L (1.0-4.8) k/uL BUN (7-17) mg/dL Glucose (74-99) mg/dL POC Glucose (mg/dL) 240 H 274 H (75-99) mg/dL 03/12/17 03/12/17 03/12/17 Range/Units 05:50 07:11 11:06 WBC (3.8-10.6) k/uL RBC (3.80-5.40) m/uL Hgb (11.4-16.0) gm/dL Hct (34.0-46.0) % RDW (11.5-15.5) % Plt Count (150-450) k/uL Lymphocytes # (1.0-4.8) k/uL BUN 5 L (7-17) mg/dL Glucose 126 H (74-99) mg/dL POC Glucose (mg/dL) 147 H 274 H (75-99) mg/dL Microbiology - Last 24 Hours (Table) 03/08/17 13:34 Blood Culture Gram Stain - Final Blood Blood Culture - Final Staphylococcus lugdunenisis 03/09/17 17:29 Blood Culture - Preliminary Blood No Growth after 48 hours 03/09/17 17:00 Blood Culture - Preliminary Blood No Growth after 48 hours 03/08/17 15:13 Blood Culture - Preliminary Blood No Growth after 72 hours Laboratory Results WBC 3.2 k/uL (3.8-10.6) L 03/12/17 05:50 RBC 2.91 m/uL (3.80-5.40) L 03/12/17 05:50 Hgb 8.9 gm/dL (11.4-16.0) L 03/12/17 05:50 Hct 27.5 % (34.0-46.0) L 03/12/17 05:50 MCV 94.4 fL (80.0-100.0) 03/12/17 05:50 MCH 30.4 pg (25.0-35.0) 03/12/17 05:50 MCHC 32.2 g/dL (31.0-37.0) 03/12/17 05:50 RDW 17.3 % (11.5-15.5) H 03/12/17 05:50 Plt Count 44 k/uL (150-450) L* D 03/12/17 05:50 Neutrophils % 60 % 03/12/17 05:50 Neutrophils % (Manual) 33 % 03/11/17 05:10 Band Neutrophils % 4 % 03/09/17 05:30 Lymphocytes % 23 % 03/12/17 05:50 Lymphocytes % (Manual) 51 % 03/11/17 05:10 Monocytes % 10 % 03/12/17 05:50 Monocytes % (Manual) 9 % 03/11/17 05:10 Eosinophils % 2 % 03/12/17 05:50 Eosinophils % (Manual) 7 % 03/11/17 05:10 Basophils % 1 % 03/12/17 05:50 Basophils % (Manual) 2 % 03/09/17 05:30 Neutrophils # 1.9 k/uL (1.3-7.7) 03/12/17 05:50 Neutrophils # (Manual) 0.36 k/uL (1.3-7.7) L 03/11/17 05:10 Lymphocytes # 0.7 k/uL (1.0-4.8) L 03/12/17 05:50 Lymphocytes # (Manual) 0.56 k/uL (1.0-4.8) L 03/11/17 05:10 Monocytes # 0.3 k/uL (0-1.0) 03/12/17 05:50 Monocytes # (Manual) 0.10 k/uL (0-1.0) 03/11/17 05:10 Eosinophils # 0.1 k/uL (0-0.7) 03/12/17 05:50 Eosinophils # (Manual) 0.08 k/uL (0-0.7) 03/11/17 05:10 Basophils # 0.0 k/uL (0-0.2) 03/12/17 05:50 Basophils # (Manual) 0.01 k/uL (0-0.2) 03/09/17 05:30 Nucleated RBCs 0 /100 WBC (0-0) 03/11/17 05:10 Differential Comment 03/10/17 06:20 Manual Slide Review Performed 03/11/17 05:10 Poikilocytosis (manual Present 03/09/17 05:30 Anisocytosis Slight 03/12/17 05:50 PT 11.3 sec (9.0-12.0) 03/08/17 13:34 INR 1.1 (<1.2) 03/08/17 13:34 APTT 26.0 sec (22.0-30.0) 03/08/17 13:34 Sodium 139 mmol/L (137-145) 03/12/17 05:50 Potassium 3.9 mmol/L (3.5-5.1) 03/12/17 05:50 Chloride 106 mmol/L (98-107) 03/12/17 05:50 Carbon Dioxide 30 mmol/L (22-30) 03/12/17 05:50 Anion Gap 3 mmol/L 03/12/17 05:50 BUN 5 mg/dL (7-17) L 03/12/17 05:50 Creatinine 0.60 mg/dL (0.52-1.04) 03/12/17 05:50 Est GFR (MDRD) Af Amer >60 (>60 ml/min/1.73 sqM) 03/12/17 05:50 Est GFR (MDRD) Non-Af >60 (>60 ml/min/1.73 sqM) 03/12/17 05:50 Glucose 126 mg/dL (74-99) H 03/12/17 05:50 POC Glucose (mg/dL) 274 mg/dL (75-99) H 03/12/17 11:06 POC Glu Event Security Officer ID Monica Vidal 03/12/17 11:[address] Glu mg/dL 200 03/09/17 06:00 Hemoglobin A1c 8.6 % (4.0-6.0) H 03/09/17 06:00 Calcium 8.7 mg/dL (8.4-10.2) 03/12/17 05:50 Phosphorus 2.1 mg/dL (2.5-4.5) L 03/08/17 13:34 Magnesium 1.7 mg/dL (1.6-2.3) 03/08/17 13:34 Total Bilirubin 1.2 mg/dL (0.2-1.3) 03/08/17 13:34 AST 22 U/L (14-36) 03/08/17 13:34 ALT 44 U/L (9-52) 03/08/17 13:34 Alkaline Phosphatase 128 U/L (38-126) H 03/08/17 13:34 Total Protein 4.9 g/dL (6.3-8.2) L 03/08/17 13:34 Albumin 2.7 g/dL (3.5-5.0) L 03/08/17 13:34 Urine Color Yellow 03/08/17 14:50 Urine Appearance Clear (Clear) 03/08/17 14:50 Urine pH 8.0 (5.0-8.0) 03/08/17 14:50 Ur Specific [place] 1.022 (1.001-1.035) 03/08/17 14:50 Urine Protein Negative (Negative) 03/08/17 14:50 Urine Glucose (UA) 4+ (Negative) H 03/08/17 14:50 Urine Ketones Negative (Negative) 03/08/17 14:50 Urine Blood Negative (Negative) 03/08/17 14:50 Urine Nitrite Negative (Negative) 03/08/17 14:50 Urine Bilirubin Negative (Negative) 03/08/17 14:50 Urine Urobilinogen 8.0 mg/dL (<2.0) 03/08/17 14:50 Ur Leukocyte Esterase Negative (Negative) 03/08/17 14:50 Vancomycin Trough 14.5 ug/mL 03/11/17 11:20 Microbiology 03/08/17 13:34 Blood Blood Culture Gram Stain - Final 03/08/17 13:34 Blood Blood Culture - Final Staphylococcus lugdunenisis 03/09/17 17:29 Blood Blood Culture - Preliminary No Growth after 48 hours 03/09/17 17:00 Blood Blood Culture - Preliminary No Growth after 48 hours 03/08/17 15:13 Blood Blood Culture - Preliminary No Growth after 72 hours 03/08/17 15:00 Urine,Catheterized Urine Culture - Final Escherichia coli 03/08/17 13:34 Blood Blood Culture - Final - Imaging and Cardiology CT scan - abdomen: report reviewed (continues with the abdominal mass and liver metastases) Assessment and Plan (1) Febrile neutropenia Current Visit: Yes Status: Acute Code(s): D70.9 - NEUTROPENIA, UNSPECIFIED; R50.81 - FEVER PRESENTING WITH CONDITIONS CLASSIFIED ELSEWHERE SNOMED Code(s) : 830413837 (2) Gram-positive bacteremia Narrative/Plan: 56-year-old female presents to Hospital from the oncology clinic where she was feeling very poorly. The fevers chills some right flank pain generalized malaise. She relates is aware she's felt since she had blood clots over a year ago. She has a extensive history as noted of her abdominal pain which is found to be related to her non-Hodgkin's lymphoma for which she has now received 3 cycles of CHOP. Now presents with significant pancytopenia with leukopenia and sepsis. Blood culture reveals that gram-positive cocci in the blood. This could be related to the urinary system. But concern is also to her underlying [id number] is in the left anterior chest wall. Follow blood cultures are been requested. Follow-up cultures and her response to therapy will determine the next course of therapy. Ongoing supportive care which includes fluids and pain control have been helpful. it is noted blood culture that was positive for staphylococcus lugdunenisis which is a contamination. Follow blood cultures are negative. She will need no further antimicrobial therapy regarding positive blood cultures. physical evidence of an E. coli urinary tract infection. It is quite susceptible. Her neutropenia is now resolving. She will be able to transition to oral antibiotic therapy to complete her course of therapy for her E. coli urinary tract infection. Cefuroxime 500 mg every 12 hours for 10 days should be adequate. Current Visit: Yes Status: Acute Priority: High Code(s): R78.81 - BACTEREMIA SNOMED Code(s): 451233204162 (3) Chemotherapy induced neutropenia Current Visit: Yes Status: Deleted Code(s): D70.1 - AGRANULOCYTOSIS SECONDARY TO CANCER CHEMOTHERAPY; T45.1X5A - ADVERSE EFFECT OF ANTINEOPLASTIC AND IMMUNOSUP DRUGS, INIT SNOMED Code(s): 510091569
[2017-03-12 17:51] LABS: Glucose,Whole Blood 281 mg/dL (75-99)
[2017-03-12 20:17] LABS: Glucose,Whole Blood 249 mg/dL (75-99)
[2017-03-12] MEDS: AMOXIC-POT CLAV 875-125MG 1 EACH TAB PO SCH (20:45)
[2017-03-12] MEDS: SERTRALINE 100 MG TAB PO SCH (20:45)
[2017-03-12] MEDS: INSULIN GLARGINE 100 UNIT/ML 10 ML VIAL SQ SCH (20:46)
[2017-03-13] MEDS: HYDROcodone/APAP 10-325MG 1 EACH TAB PO PRN ×2 (00:23→07:06)
[2017-03-13] MEDS: LEVOTHYROXINE 137 MCG TAB PO SCH (07:05)
[2017-03-13 07:36] LABS: Glucose,Whole Blood 245 mg/dL (75-99)
[2017-03-13 07:43] LABS: Anion Gap 3 mmol/L; Blood Urea Nitrogen 5 mg/dL (7-17); Calcium 8.2 mg/dL (8.4-10.2); Carbon Dioxide 28 mmol/L (22-30); Chloride 108 mmol/L (98-107); Glucose 187 mg/dL (74-99); Non-African American GFR(MDRD) >60 (>60 ml/min/1.73 sqM); Potassium 3.9 mmol/L (3.5-5.1); Sodium 139 mmol/L (137-145)
[2017-03-13 08:05] LABS: Anisocytosis Slight; Basophils % (A) 0 %; CH 32.3; CHCM 34.1; Eosinophils # (A) 0.1 k/uL (0-0.7); Eosinophils % (A) 2 %; HCT 25.5 % (34.0-46.0); HDW 3.44; HGB 8.4 gm/dL (11.4-16.0); Luc # (Auto) 0.11; Luc % (Auto) 3; Lymphocytes # (A) 0.7 k/uL (1.0-4.8); Lymphocytes % (A) 20 %; MCH 31.5 pg (25.0-35.0); MCV 95.5 fL (80.0-100.0); Mean Platelet Volume 8.6; Monocytes # (A) 0.2 k/uL (0-1.0); Monocytes % (A) 7 %; Neutrophils # (A) 2.3 k/uL (1.3-7.7); Neutrophils % (A) 68 %; Poikilocytosis Slight; RBC 2.68 m/uL (3.80-5.40); RDW 16.8 % (11.5-15.5); WBC 3.3 k/uL (3.8-10.6); WBC (Perox) 3.51
[2017-03-13] MEDS: LISINOPRIL 10 MG TAB PO SCH (08:15)
[2017-03-13] MEDS: PANTOPRAZOLE 40 MG TABLET PO SCH (08:15)
[2017-03-13] MEDS: AMOXIC-POT CLAV 875-125MG 1 EACH TAB PO SCH (08:15)
[2017-03-13] MEDS: INSULIN LISPRO (humaLOG) 300 UNIT/3 ML VIAL SQ SCH (08:15)
[2017-03-13] MEDS: ATORVASTATIN 40 MG TAB PO SCH (08:15)
[2017-03-13 08:38] VITALS: BP 103/59; PULSE 65; RESP 20; TEMP 97.8
--- NOTE | 2017-03-13 09:16 | P.DS ---
Providers Date of admission: 03/08/17 12:01 Expected date of discharge: 03/13/17 Attending physician: Darby Ferro DO Consults: 03/08/17 12:42 Consult Physician Routine Consulting Provider: Gael Alvarez Consult Reason/Comments: continuity patient with NHL Do you want consulting provider notified?: Yes 03/08/17 12:47 Consult Physician Routine Consulting Provider: Pablo Patel Consult Reason/Comments: neutropenic uti Do you want consulting provider notified?: Yes Primary care physician: Stated None - Discharge Diagnosis(es) (1) E. coli UTI Current Visit: Yes Status: Resolved (2) Febrile neutropenia Current Visit: Yes Status: Acute (3) Pancytopenia Current Visit: Yes Status: Acute Priority: Medium (4) Non-Hodgkin lymphoma of extranodal and solid organ sites Current Visit: Yes Status: Acute Priority: High (5) Type 2 diabetes mellitus with hyperglycemia Current Visit: Yes Status: Acute (6) Hyponatremia Current Visit: Yes Status: Resolved (7) Benign essential hypertension Current Visit: No Status: Acute (8) Diarrhea Current Visit: Yes Status: Acute Priority: High (9) Morbid obesity Current Visit: No Status: Acute Hospital Course: Patient is a 48-year-old morbidly obese female with history of non- Hodgkin Lymphoma status post 3/6 rounds of R-CHOP chemotherapy, hypertension, and diabetes mellitus type 2 who was sent over from the oncology office with neutropenia and subjective fevers. There was concern for possible urinary tract infection at the oncology office. On arrival here she was started on antibiotics. Her initial vital signs showed a fever of 99.9. Initial laboratory analysis showed pancytopenia with a white blood cell count of 0.5. She underwent a CT abdomen and pelvis which was essentially unchanged from prior redemonstrating her mesenteric mass. She also had blood cultures done which resulted 1/4 positive for Gram-positive bacteremia, infectious disease was consulted and she been started on vancomycin initially, ultimately this was found to be a contaminant. She has a history of bleeding on her xarelto with her low platelets and oncology had stopped this as outpatient. She was also noted to have Hyponatremia and was started on IV fluids. Her white blood cell count had normalized by the morning of 03/12. Her urinary tract infection was found to be due to E. coli that was pansensitive. She was transitioned off Vanco and cefepime and onto Augmentin. Infections disease re-evaluated the patient and Ceftin for a total of 10 days of antibiotics. Her symptoms had improved greatly, she was told to stay off her detrol until her antibiotic were completed. She was also found to have elevated blood sugars. She had been using sliding scale insulin at the direction of oncology at home with her steroids. Her hemoglobin A1c was found to be 8.6. She has failed metformin in the past due to severe gastrointestinal upset. She was started on Januvia in addition to her Amaryl. Patient seen and examined at bedside. States her pain is controlled with her [place]. Not having any nausea or vomiting. Feels she is doing fairly well. Denies chest pain or shortness of breath. Vital signs reviewed and stable. General: non toxic, no distress, appears at stated age, obese Derm: no rashes, no lesions Head: atraumatic, normocephalic, symmetric Eyes: EOMI, no lid lag, anicteric sclera ENT: no post nasal drip, no thrush Mouth: no lip lesion, mucus membranes moist Cardiovascular: S1S2 reg, no murmur, positive posterior tibial pulse bilateral, Lungs: CTA bilateral, no rhonchi, no rales , no accessory muscle use Abdominal: soft, nontender to palpation, no guarding, no appreciable organomegaly Ext: no gross muscle atrophy, no edema, no contractures Neuro: CN II-XI grossly intact, no focal neuro deficits Psych: Alert, oriented, appropriate affect A total of 45 minutes of time were spent preparing this complex discharge summary . Pertinent Studies: CT abdomen and pelvis: Redemonstration of persistent mesenteric ill-defined mass or adenopathy, slight improvement from prior, suspected cirrhosis and possible underlying portal hypertension Procedures: None Patient Condition at Discharge: Stable Plan - Discharge Summary Discharge Rx Participant: Yes New Discharge Prescriptions: New Cefuroxime Axetil [Ceftin] 500 mg PO BID #10 tab sitaGLIPtin PHOSPHATE [Januvia] 100 mg PO DAILY #30 tab Continue Sertraline [Zoloft] 200 mg PO HS Atorvastatin [Lipitor] 40 mg PO DAILY Lisinopril 10 mg PO DAILY Levothyroxine Sodium [Synthroid] 137 mcg PO DAILY HYDROcodone/APAP 10-325MG [[place] 10-325] 1 tab PO Q4-6H PRN PRN Reason: Pain Cranberry/Vit C 4200mg 1 tab PO DAILY PRN PRN Reason: UTI SYMPTOMS Glimepiride [Amaryl] 2 mg PO BID predniSONE 100 mg PO DIRECTED Prochlorperazine [Compazine] 10 mg PO Q6H PRN PRN Reason: Nausea And Vomiting Omeprazole [PriLOSEC] 10 mg PO DAILY Insulin Lispro [humaLOG Kwikpen] See Protocol SQ AC-TID Loperamide HCl [Imodium A-D] 2 - 4 mg PO BID PRN PRN Reason: Diarrhea Discontinued Tolterodine ER [Detrol LA] 4 mg PO DAILY Rivaroxaban [Xarelto] 20 mg PO DAILY Discharge Medication List Sertraline [Zoloft] 200 mg PO HS 03/07/15 [History] Atorvastatin [Lipitor] 40 mg PO DAILY 02/10/16 [History] Lisinopril 10 mg PO DAILY 02/10/16 [History] Levothyroxine Sodium [Synthroid] 137 mcg PO DAILY 08/17/16 [History] Cranberry/Vit C 4200mg 1 tab PO DAILY PRN 12/19/16 [History] Glimepiride [Amaryl] 2 mg PO BID 12/19/16 [History] HYDROcodone/APAP 10-325MG [[place] 10-325] 1 tab PO Q4-6H PRN 12/19/16 [History] Insulin Lispro [humaLOG Kwikpen] See Protocol SQ AC-TID 03/08/17 [History] Loperamide HCl [Imodium A-D] 2 - 4 mg PO BID PRN 03/08/17 [History] Omeprazole [PriLOSEC] 10 mg PO DAILY 03/08/17 [History] Prochlorperazine [Compazine] 10 mg PO Q6H PRN 03/08/17 [History] predniSONE 100 mg PO DIRECTED 03/08/17 [History] Cefuroxime Axetil [Ceftin] 500 mg PO BID #10 tab 03/13/17 [Rx] sitaGLIPtin PHOSPHATE [Januvia] 100 mg PO DAILY #30 tab 03/13/17 [Rx] Follow up Appointment(s)/Referral(s): Forrest Balderrama MD [STAFF PHYSICIAN] - 03/15/17 9:00 am Activity/Diet/Wound Care/Special Instructions: Carb consistent diet, activity as tolerated. Stop taking your Tolterodine (detrol) until your antibiotic is completed Stop taking your rivaroxaban (Xarelto) until your platelets improve and Dr. aBlderrama tells you to resume it
[2017-03-13 11:06] LABS: Glucose,Whole Blood 324 mg/dL (75-99)
--- NOTE | 2017-03-24 08:18 | CDI ---
In responding to this query, please exercise your independent professional judgment. The [facility] Coding Staff and Clinical Documentation Specialists appreciate your assistance in clarifying documentation, maintaining compliance with coding guidelines, accurately documenting patients condition and capturing severity of illness. The fact that a question is asked does not imply that any particular answer is desired or expected. Communication forms are a method of clarifying documentation and are not made part of the Legal Health Record. Thank you in advance for your clarification. Last Revision, March 2015 Date: 03/24/2017 8:06:00 AM From: ЕЛЕНА Manrique Deborah Biskner, Police Patrol Lieutenant Admit Date: 03/08/2017 12:01:00 PM Patient Name: Nidhi Cervantes Visit Number: [id number] Discharge Date: Dr. Darby Ferro Patient was direct admit from clinic with neutropenia and UTI. Neutropenic sepsis is documented in progress notes, but this diagnosis is not carried to the discharge summary. Admission vitals are temp 99.4, pulse 80, resp 20, BP 129/53 and pulse ox 97. IV cefepime I g bid was started. Infectious disease was consulted. In your professional opinion, can you please clarify if? Sepsis ruled in Sepsis ruled out Other Unable to determine Please document in your progress notes and discharge summary in order to capture severity of illness and risk of mortality. Include clinical findings that support your diagnosis. If you have a question about this query, please contact Rosalva Zaidi Police Patrol Lieutenant at [phone] between 8am and 5pm. Neutropenic sepsis ruled out FYI: Press F11 to launch patient chart. MTDD
== END 2017-03-13 12:50 | disposition home or self-care (01) | DRG 809 ==
LOC: 5ONC 12:01
PROVIDERS: ADMIT Internal Medicine; ATTEND Internal Medicine
DX: D70.1 Agranulocytosis secondary to cancer chemotherapy (principal); C82.10 Follicular lymphoma grade II, unspecified site; D68.51 Activated protein C resistance; C81.90 Hodgkin lymphoma, unspecified, unspecified site; N39.0 Urinary tract infection, site not specified; B96.20 Unspecified Escherichia coli [E. coli] as the cause of diseases classified elsewhere; E87.1 Hypo-osmolality and hyponatremia; D69.6 Thrombocytopenia, unspecified; E11.65 Type 2 diabetes mellitus with hyperglycemia; B96.89 Other specified bacterial agents as the cause of diseases classified elsewhere; E03.9 Hypothyroidism, unspecified; E66.01 Morbid (severe) obesity due to excess calories; E78.5 Hyperlipidemia, unspecified; E86.0 Dehydration; G47.33 Obstructive sleep apnea (adult) (pediatric); G89.29 Other chronic pain; I10 Essential (primary) hypertension; T45.1X5A Adverse effect of antineoplastic and immunosuppressive drugs, initial encounter; Z79.01 Long term (current) use of anticoagulants; Z79.4 Long term (current) use of insulin; Z79.899 Other long term (current) drug therapy; Z82.49 Family history of ischemic heart disease and other diseases of the circulatory system; Z83.3 Family history of diabetes mellitus; Z79.84 Long term (current) use of oral hypoglycemic drugs
CPT/HCPCS: 71020; 74176; 80048; 80053; 80202; 81003; 83036; 83735; 84100; 85025; 85027; 85610; 85730; 87040; 87077; 87086; 87186

== ENCOUNTER 2017-03-30 16:11 | Inpatient (IN) | payer MEDICARE ==
[2017-03-30] MEDS ORDERED: ONDANSETRON 4 MG/2 ML VIAL IM STA (16:49)
[2017-03-30] MEDS ORDERED: HYDROmorphone 0.5 MG/0.5 ML SYRINGE IVP STA (16:49)
[2017-03-30 17:40] LABS: Appearance,Urine Clear (Clear); Bilirubin,Urine Negative (Negative); Glucose,Urine (UA) 2+ (Negative); Ketones,Urine Negative (Negative); Leukocyte Esterase,Urine Negative (Negative); Nitrite,Urine Negative (Negative); PH, Urine 7.5 (5.0-8.0); Protein,Urine Trace (Negative); Specific Gravity,Urine 1.018 (1.001-1.035); UA Billing (MACRO vs. MICRO) CHEM
[2017-03-30 17:41] LABS: Anisocytosis Slight; CH 32.3; CHCM 34.3; HCT 23.4 % (34.0-46.0); HDW 3.02; MCH 32.1 pg (25.0-35.0); MCHC 33.9 g/dL (31.0-37.0); MCV 94.7 fL (80.0-100.0); Mean Platelet Volume 9.5; RBC 2.48 m/uL (3.80-5.40); RDW 16.7 % (11.5-15.5); WBC (Perox) 0.38
[2017-03-30 17:46] LABS: INR 1.3 (<1.2); Partial Thromboplastin Time 33.1 sec (22.0-30.0); Prothrombin Time 12.9 sec (9.0-12.0)
[2017-03-30 17:47] LABS: HGB 7.9 gm/dL (11.4-16.0); WBC 0.4 k/uL (3.8-10.6)
[2017-03-30 17:48] LABS: ALT 43 U/L (9-52); AST 39 U/L (14-36); Alkaline Phosphatase 137 U/L (38-126); Anion Gap 6 mmol/L; Blood Urea Nitrogen 11 mg/dL (7-17); Calcium 8.2 mg/dL (8.4-10.2); Carbon Dioxide 24 mmol/L (22-30); Chloride 107 mmol/L (98-107); Glucose 206 mg/dL (74-99); Magnesium 1.7 mg/dL (1.6-2.3); Non-African American GFR(MDRD) >60 (>60 ml/min/1.73 sqM); Potassium 3.4 mmol/L (3.5-5.1); Sodium 137 mmol/L (137-145); Total Bilirubin 0.8 mg/dL (0.2-1.3); Total Protein 4.7 g/dL (6.3-8.2)
--- NOTE | 2017-03-30 17:53 | ED ---
General Adult HPI - General Chief complaint: Weakness Stated complaint: Upper Abd Pain Time Seen by Provider: 03/30/17 16:38 Source: patient, RN notes reviewed Mode of arrival: wheelchair Limitations: no limitations - History of Present Illness Initial comments: This a 56-year-old female presents emergency Department chief complaint of epigastric pain. Patient states that she has ongoing epigastric pain and abdominal pain secondary to gastric mass. Patient states she has a mass that symptoms from her lymphoma. Patient states that she currently is receiving chemotherapy and sees Dr. Balderrama. Patient denies any chest pain shortness but this time but she did have some radiating chest discomfort the past few days. Patient denies any constipation but states she's been dealing with diarrhea in which she had a negative C. diff testing 2 days ago. Patient was given Lomotil. She states that has formed some. He shouldn't denies any melena or hematochezia. Denies any dysuria hematuria. Patient states that she saw oncologist a couple days ago who wanted her mother secondary to her low white count. Patient denies any fever states that she has had chills though this is not the usual. - Related Data Home Medications Medication Instructions Recorded Confirmed Sertraline [Zoloft] 200 mg PO HS 03/07/15 03/30/17 Atorvastatin [Lipitor] 40 mg PO DAILY 02/10/16 03/30/17 Lisinopril 10 mg PO DAILY 02/10/16 03/30/17 Levothyroxine Sodium [Synthroid] 137 mcg PO DAILY 08/17/16 03/30/17 Cranberry/Vit C 4200mg 1 tab PO DAILY PRN 12/19/16 03/30/17 Glimepiride [Amaryl] 2 mg PO BID 12/19/16 03/30/17 HYDROcodone/APAP 10-325MG [[place] 1 tab PO Q4-6H PRN 12/19/16 03/30/17 10-325] Insulin Lispro [humaLOG Kwikpen] See Protocol SQ AC-TID PRN 03/08/17 03/30/17 Omeprazole [PriLOSEC] 10 mg PO DAILY 03/08/17 03/30/17 predniSONE 100 mg PO DIRECTED 03/08/17 03/30/17 Acetaminophen/Diphenhydramine 1 tab PO HS PRN 03/30/17 03/30/17 [Tylenol PM 500-25mg] Diphenox-Atrop 2.5-0.025 mg 2 tab PO QID PRN 03/30/17 03/30/17 [Lomotil] Insulin Aspart Protam & Aspart See Protocol SQ AC-TID PRN 03/30/17 03/30/17 [NovoLOG MIX 70-30 Flexpen] Levofloxacin [Levaquin] 750 mg PO DAILY 03/30/17 03/30/17 Loratadine 10 mg PO DAILY PRN 03/30/17 03/30/17 Rivaroxaban [Xarelto] 20 mg PO DAILY 03/30/17 03/30/17 Tolterodine ER [Detrol LA] 4 mg PO DAILY 03/30/17 03/30/17 oxyCODONE-APAP 10-325MG [Percocet 1 tab PO QID PRN 03/30/17 03/30/17 10-325 mg] Previous Rx's Medication Instructions Recorded sitaGLIPtin PHOSPHATE [Januvia] 100 mg PO DAILY #30 tab 03/13/17 Allergies Allergy/AdvReac Type Severity Reaction Status Date / Time Anesthetics - Amide Type AdvReac Nausea & Verified 03/08/17 14:58 Vomiting & Diarrhea Anesthetics - Jonna Type- AdvReac Nausea & Verified 03/08/17 14:58 Parabens Vomiting & Diarrhea Review of Systems ROS Statement: Those systems with pertinent positive or pertinent negative responses have been documented in the HPI. ROS Other: All systems not noted in ROS Statement are negative. 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 History of Any Multi-Drug Resistant Organisms: None Reported Past Surgical History: Adenoidectomy, Appendectomy, Back Surgery, Cholecystectomy, Hysterectomy, Orthopedic Surgery, Tonsillectomy Additional Past Surgical History / Comment(s): Recent abdominal mass biopsy x 2 , BMA, EGD/colonoscopy at [facility], bilateral carpal tunnel release, thyroidectomy (one tiny piece unable to remove), ORIF rt ankle, stents in LLE/ vascular stent, cervical surgery C4,C6, thyroidectomy Past Anesthesia/Blood Transfusion Reactions: Postoperative Nausea & Vomiting ( PONV) Additional Past Anesthesia/Blood Transfusion Reaction / Comment(s): blood transfusion(December 2015) "pt stated an hour after transfusion became very nauseated and had quit a bit of vomiting" Past Psychological History: No Psychological Hx Reported Smoking Status: Never smoker Past Drug Use History: None Reported - Past Family History Mother Family Medical History: Diabetes Mellitus, Renal Disease Additional Family Medical History / Comment(s): Mother of kidney failure at the age of 69yrs. Father Family Medical History: Diabetes Mellitus Additional Family Medical History / Comment(s): Father of a "sugar coma" when he was 72 yrs old. Brother(s) Family Medical History: Cancer Sister(s) Family Medical History: Myocardial Infarction ([place]) Additional Family Medical History / Comment(s): Patient has 3 sisters and 2 of them are diabetic. Son(s) Family Medical History: No Reported History (Patient has 4 sons no major medical problems) Additional Family Medical History / Comment(s): Patient has 4 sons with no major medical problems. Daughter(s) Family Medical History: Deep Vein Thrombosis (DVT) Additional Family Medical History / Comment(s): Patient has a daughter with DVT. General Exam Limitations: no limitations General appearance: alert, in no apparent distress Head exam: Present: atraumatic, normocephalic, normal inspection Neck exam: Present: normal inspection, full ROM. Absent: tenderness, meningismus, lymphadenopathy Respiratory exam: Present: normal lung sounds bilaterally. Absent: respiratory distress, wheezes, rales, rhonchi, stridor Cardiovascular Exam: Present: regular rate, normal rhythm, normal heart sounds. Absent: systolic murmur, diastolic murmur, rubs, gallop, clicks GI/Abdominal exam: Present: soft, tenderness (Moderate epigastric), normal bowel sounds. Absent: distended, guarding, rebound, rigid Back exam: Absent: CVA tenderness (R), CVA tenderness (L) Neurological exam: Present: alert, oriented X3, CN II-XII intact Skin exam: Present: warm, dry, intact, normal color. Absent: rash Course Vital Signs 03/30/17 03/30/17 03/30/17 16:29 18:05 18:56 Temperature 98.1 F Pulse Rate 86 69 73 Respiratory 18 20 18 Rate Blood Pressure 135/63 125/56 132/61 O2 Sat by Pulse 100 97 95 Oximetry Medical Decision Making - Lab Data Result diagrams: 03/30/17 17:24 03/30/17 17:24 Lab Results 03/30/17 03/30/17 03/30/17 Range/Units 17:24 17:24 17:24 WBC 0.4 L* (3.8-10.6) k/uL RBC 2.48 L (3.80-5.40) m/uL Hgb 7.9 L D (11.4-16.0) gm/dL Hct 23.4 L (34.0-46.0) % MCV 94.7 (80.0-100.0) fL MCH 32.1 (25.0-35.0) pg MCHC 33.9 (31.0-37.0) g/dL RDW 16.7 H (11.5-15.5) % Plt Count 23 L* D (150-450) k/uL Differential Comment Anisocytosis Slight PT (9.0-12.0) sec INR (<1.2) APTT (22.0-30.0) sec Sodium 137 (137-145) mmol/L Potassium 3.4 L (3.5-5.1) mmol/L Chloride 107 (98-107) mmol/L Carbon Dioxide 24 (22-30) mmol/L Anion Gap 6 mmol/L BUN 11 (7-17) mg/dL Creatinine 0.53 (0.52-1.04) mg/dL Est GFR (MDRD) Af Amer >60 (>60 ml/min/1.73 sqM) Est GFR (MDRD) Non-Af >60 (>60 ml/min/1.73 sqM) Glucose 206 H (74-99) mg/dL Plasma Lactic Acid Shaka (0.7-2.0) mmol/L Calcium 8.2 L (8.4-10.2) mg/dL Magnesium 1.7 (1.6-2.3) mg/dL Total Bilirubin 0.8 (0.2-1.3) mg/dL AST 39 H (14-36) U/L ALT 43 (9-52) U/L Alkaline Phosphatase 137 H (38-126) U/L Total Creatine Kinase 53 (30-135) U/L CK-MB (CK-2) 0.7 (0.0-2.4) ng/mL CK-MB (CK-2) Rel Index 1.3 Troponin I <0.012 (0.000-0.034) ng/mL NT-Pro-B Natriuret Pep pg/mL Total Protein 4.7 L (6.3-8.2) g/dL Albumin 2.5 L (3.5-5.0) g/dL Urine Color Urine Appearance (Clear) Urine pH (5.0-8.0) Ur Specific [place] (1.001-1.035) Urine Protein (Negative) Urine Glucose (UA) (Negative) Urine Ketones (Negative) Urine Blood (Negative) Urine Nitrite (Negative) Urine Bilirubin (Negative) Urine Urobilinogen (<2.0) mg/dL Ur Leukocyte Esterase (Negative) 03/30/17 03/30/17 03/30/17 Range/Units 17:24 17:24 17:24 WBC (3.8-10.6) k/uL RBC (3.80-5.40) m/uL Hgb (11.4-16.0) gm/dL Hct (34.0-46.0) % MCV (80.0-100.0) fL MCH (25.0-35.0) pg MCHC (31.0-37.0) g/dL RDW (11.5-15.5) % Plt Count (150-450) k/uL Differential Comment Anisocytosis PT 12.9 H (9.0-12.0) sec INR 1.3 H (<1.2) APTT 33.1 H (22.0-30.0) sec Sodium (137-145) mmol/L Potassium (3.5-5.1) mmol/L Chloride (98-107) mmol/L Carbon Dioxide (22-30) mmol/L Anion Gap mmol/L BUN (7-17) mg/dL Creatinine (0.52-1.04) mg/dL Est GFR (MDRD) Af Amer (>60 ml/min/1.73 sqM) Est GFR (MDRD) Non-Af (>60 ml/min/1.73 sqM) Glucose (74-99) mg/dL Plasma Lactic Acid Shaka (0.7-2.0) mmol/L Calcium (8.4-10.2) mg/dL Magnesium (1.6-2.3) mg/dL Total Bilirubin (0.2-1.3) mg/dL AST (14-36) U/L ALT (9-52) U/L Alkaline Phosphatase (38-126) U/L Total Creatine Kinase (30-135) U/L CK-MB (CK-2) (0.0-2.4) ng/mL CK-MB (CK-2) Rel Index Troponin I (0.000-0.034) ng/mL NT-Pro-B Natriuret Pep 209 pg/mL Total Protein (6.3-8.2) g/dL Albumin (3.5-5.0) g/dL Urine Color Yellow Urine Appearance Clear (Clear) Urine pH 7.5 (5.0-8.0) Ur Specific Edwards 1.018 (1.001-1.035) Urine Protein Trace H (Negative) Urine Glucose (UA) 2+ H (Negative) Urine Ketones Negative (Negative) Urine Blood Negative (Negative) Urine Nitrite Negative (Negative) Urine Bilirubin Negative (Negative) Urine Urobilinogen 8.0 (<2.0) mg/dL Ur Leukocyte Esterase Negative (Negative) 03/30/17 Range/Units 17:40 WBC (3.8-10.6) k/uL RBC (3.80-5.40) m/uL Hgb (11.4-16.0) gm/dL Hct (34.0-46.0) % MCV (80.0-100.0) fL MCH (25.0-35.0) pg MCHC (31.0-37.0) g/dL RDW (11.5-15.5) % Plt Count (150-450) k/uL Differential Comment Anisocytosis PT (9.0-12.0) sec INR (<1.2) APTT (22.0-30.0) sec Sodium (137-145) mmol/L Potassium (3.5-5.1) mmol/L Chloride (98-107) mmol/L Carbon Dioxide (22-30) mmol/L Anion Gap mmol/L BUN (7-17) mg/dL Creatinine (0.52-1.04) mg/dL Est GFR (MDRD) Af Amer (>60 ml/min/1.73 sqM) Est GFR (MDRD) Non-Af (>60 ml/min/1.73 sqM) Glucose (74-99) mg/dL Plasma Lactic Acid Shaka 1.3 (0.7-2.0) mmol/L Calcium (8.4-10.2) mg/dL Magnesium (1.6-2.3) mg/dL Total Bilirubin (0.2-1.3) mg/dL AST (14-36) U/L ALT (9-52) U/L Alkaline Phosphatase (38-126) U/L Total Creatine Kinase (30-135) U/L CK-MB (CK-2) (0.0-2.4) ng/mL CK-MB (CK-2) Rel Index Troponin I (0.000-0.034) ng/mL NT-Pro-B Natriuret Pep pg/mL Total Protein (6.3-8.2) g/dL Albumin (3.5-5.0) g/dL Urine Color Urine Appearance (Clear) Urine pH (5.0-8.0) Ur Specific Edwards (1.001-1.035) Urine Protein (Negative) Urine Glucose (UA) (Negative) Urine Ketones (Negative) Urine Blood (Negative) Urine Nitrite (Negative) Urine Bilirubin (Negative) Urine Urobilinogen (<2.0) mg/dL Ur Leukocyte Esterase (Negative) Disposition Clinical Impression: Pancytopenia, Epigastric mass, Epigastric pain, Weakness Disposition: ADMITTED IP TO THIS [facility] Condition: Fair Referrals: Obdulia Jasso MD [Primary Care Provider] - 1-2 days
[2017-03-30 17:58] LABS: Creatine Kinase 53 U/L (30-135)
--- NOTE | 2017-03-30 18:05 | XR ---
EXAMINATION TYPE: XR chest 2V DATE OF EXAM: 03/30/2017 COMPARISON: 03/09/2017 HISTORY: Weakness TECHNIQUE: Frontal and lateral views of the chest are obtained. FINDINGS: There is no heart failure nor confluent pneumonic infiltrate. Costophrenic angles are tate r. Cervical spine fusion surgery is noted. There is left-sided central venous catheter with tip in th e superior vena cava. IMPRESSION: No active cardiopulmonary disease. Normal heart. No change.
--- NOTE | 2017-03-30 18:06 | XR ---
EXAMINATION TYPE: XR KUB DATE OF EXAM: 03/30/2017 COMPARISON: NONE HISTORY: Weakness TECHNIQUE: 2 views FINDINGS: There is no sign of intestinal obstruction or pneumoperitoneum. Fecal pattern is normal. Sherrie ng bases are clear. There are no pathologic calcifications over the kidneys. IMPRESSION: Nonacute abdomen. Left iliac artery stent noted.
[2017-03-30 18:10] LABS: Creatine Kinase MB 0.7 ng/mL (0.0-2.4); Troponin I <0.012 ng/mL (0.000-0.034)
[2017-03-30 18:12] LABS: Add Differential Manual Differential
[2017-03-30] MEDS ORDERED: HYDROmorphone 1 MG/ML 1 ML SYRINGE IVP STA (18:40)
[2017-03-30] MEDS ORDERED: ONDANSETRON 4 MG/2 ML VIAL IVP PRN (19:23)
[2017-03-30] MEDS ORDERED: ACETAMINOPHEN TAB 325 MG TAB PO PRN (19:23)
[2017-03-30] MEDS ORDERED: NALOXONE 0.4 MG/ML 1 ML VIAL IV PRN ×2 (19:23→20:09)
[2017-03-30] MEDS ORDERED: oxyCODONE-APAP 10-325MG 1 EACH TAB PO PRN (19:24)
[2017-03-30] MEDS ORDERED: DIPHENOX-ATROP 2.5-0.025 MG 1 EACH TAB PO PRN (19:24)
[2017-03-30] MEDS ORDERED: ACETAMINOPHEN TAB 500 MG TAB PO PRN (19:24)
[2017-03-30] MEDS ORDERED: diphenhydrAMINE 25 MG CAP PO PRN (19:56)
[2017-03-30] MEDS ORDERED: POTASSIUM CHLORIDE ER 20 MEQ TAB.ER PO STA (20:15)
[2017-03-30 20:21] LABS: Glucose,Whole Blood 155 mg/dL (75-99)
--- NOTE | 2017-03-30 20:36 | P.HPIM ---
History of Present Illness H&P Date: 03/30/17 Chief Complaint: Weakness 56-year-old female presents emergency Department chief complaint of epigastric pain. Patient states that she has ongoing epigastric pain and abdominal pain secondary to a gastric mass, that was found to be a lymphoma last December. The pain is associated with nausea but no vomiting. Patient has been dealing with diarrhea and she was tested for C. diff that came back negative 2 days ago. Patient was subsequently given Lomotil which helped form her stool a little. She states that she currently is receiving chemotherapy and sees Dr. Balderrama, so far she received 4 cycles of chemo and the last cycle was about 2 weeks ago. She did not receive any radiation so far for this. She was just seen by the oncologist nurse practitioner yesterday and at that time her WBC count was 0.7. Patient mentioned history of feeling hot and cold on and off since starting on the chemotherapy but no documented fevers. Patient denies any chest pain but did have some shortness of breath, dizziness and severe weakness. He denies any melena or hematochezia, no hematemesis, hemoptysis or any bleeding from anywhere. Denies any dysuria or any urinary symptoms. 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 History of Any Multi-Drug Resistant Organisms: None Reported Past Surgical History: Adenoidectomy, Appendectomy, Back Surgery, Cholecystectomy, Hysterectomy, Orthopedic Surgery, Tonsillectomy Additional Past Surgical History / Comment(s): Recent abdominal mass biopsy x 2 , BMA, EGD/colonoscopy at [facility], bilateral carpal tunnel release, thyroidectomy (one tiny piece unable to remove), ORIF rt ankle, stents in LLE/ vascular stent, cervical surgery C4,C6, thyroidectomy Past Anesthesia/Blood Transfusion Reactions: Postoperative Nausea & Vomiting ( PONV) Additional Past Anesthesia/Blood Transfusion Reaction / Comment(s): blood transfusion(December 2015) "pt stated an hour after transfusion became very nauseated and had quit a bit of vomiting" Past Psychological History: No Psychological Hx Reported Smoking Status: Never smoker Past Drug Use History: None Reported - Past Family History Mother Family Medical History: Diabetes Mellitus, Renal Disease Additional Family Medical History / Comment(s): Mother of kidney failure at the age of 69yrs. Father Family Medical History: Diabetes Mellitus Additional Family Medical History / Comment(s): Father of a "sugar coma" when he was 72 yrs old. Brother(s) Family Medical History: Cancer Sister(s) Family Medical History: Myocardial Infarction ([place]) Additional Family Medical History / Comment(s): Patient has 3 sisters and 2 of them are diabetic. Son(s) Family Medical History: No Reported History (Patient has 4 sons no major medical problems) Additional Family Medical History / Comment(s): Patient has 4 sons with no major medical problems. Daughter(s) Family Medical History: Deep Vein Thrombosis (DVT) Additional Family Medical History / Comment(s): Patient has a daughter with DVT. Medications and Allergies Home Medications Medication Instructions Recorded Confirmed Type Sertraline [Zoloft] 200 mg PO HS 03/07/15 03/30/17 History Atorvastatin [Lipitor] 40 mg PO DAILY 02/10/16 03/30/17 History Lisinopril 10 mg PO DAILY 02/10/16 03/30/17 History Levothyroxine Sodium [Synthroid] 137 mcg PO DAILY 08/17/16 03/30/17 History Cranberry/Vit C 4200mg 1 tab PO DAILY PRN 12/19/16 03/30/17 History Glimepiride [Amaryl] 2 mg PO BID 12/19/16 03/30/17 History HYDROcodone/APAP 10-325MG [[place] 1 tab PO Q4-6H PRN 12/19/16 03/30/17 History 10-325] Insulin Lispro [humaLOG Kwikpen] See Protocol SQ AC-TID PRN 03/08/17 03/30/17 History Omeprazole [PriLOSEC] 10 mg PO DAILY 03/08/17 03/30/17 History predniSONE 100 mg PO DIRECTED 03/08/17 03/30/17 History sitaGLIPtin PHOSPHATE [Januvia] 100 mg PO DAILY #30 tab 03/13/17 03/30/17 Rx Acetaminophen/Diphenhydramine 1 tab PO HS PRN 03/30/17 03/30/17 History [Tylenol PM 500-25mg] Diphenox-Atrop 2.5-0.025 mg 2 tab PO QID PRN 03/30/17 03/30/17 History [Lomotil] Insulin Aspart Protam & Aspart See Protocol SQ AC-TID PRN 03/30/17 03/30/17 History [NovoLOG MIX 70-30 Flexpen] Levofloxacin [Levaquin] 750 mg PO DAILY 03/30/17 03/30/17 History Loratadine 10 mg PO DAILY PRN 03/30/17 03/30/17 History Rivaroxaban [Xarelto] 20 mg PO DAILY 03/30/17 03/30/17 History Tolterodine ER [Detrol LA] 4 mg PO DAILY 03/30/17 03/30/17 History oxyCODONE-APAP 10-325MG [Percocet 1 tab PO QID PRN 03/30/17 03/30/17 History 10-325 mg] Allergies Allergy/AdvReac Type Severity Reaction Status Date / Time Anesthetics - Amide Type AdvReac Nausea & Verified 03/08/17 14:58 Vomiting & Diarrhea Anesthetics - Jonna Type- AdvReac Nausea & Verified 03/08/17 14:58 Parabens Vomiting & Diarrhea Physical Exam Vitals: Vital Signs Temp Pulse Resp BP Pulse Ox 03/30/17 18:56 73 18 132/61 95 03/30/17 18:05 69 20 125/56 97 03/30/17 16:29 98.1 F 86 18 135/63 100 Intake and Output 03/30/17 03/30/17 03/30/17 06:59 14:59 22:59 Other: Weight 122.47 kg Patient Weight 03/31/17 06:59 Weight 122.47 kg Constitutional: No acute distress, conversant, pleasant Eyes:Anicteric sclerae, moist conjunctiva, no lid-lag, PERRLA, ENMT: Oropharynx clear, no erythema, exudates Neck: Supple, FROM, no masses, or JVD, No carotid bruits, No thyromegaly Lungs: Clear to auscultation, Clear to percussion, Normal respiratory effort, no accessory muscle use Cardiovascular: Heart regular in rate and rhythm, No murmurs, gallops, or rubs, No peripheral edema Abdominal: Round bruise present on the lower left abdomen, abdomen is soft, tender in the epigastric area, no guarding, rebound or rigidity, Normoactive bowel sounds, No hepatomegaly, No splenomegaly, No palpable mass Skin: Normal temperature, tone, texture, turgor, no induration, No subcutaneous nodules, No rash, lesions, No ulcers Extremities: No digital cyanosis, No clubbing, Pedal pulses intact and symmetrical, Radial pulses intact and symmetrical, No calf tenderness Psychiatric: Alert and oriented to person, place and time, appropriate affect, intact judgement Neuro: Muscles Strength 5/5 in all 4 extremities, Sensation to light touch grossly present throughout, Cranial nerves II-XII grossly intact, no focal sensory deficits Results CBC & Chem 7: 03/30/17 17:24 03/30/17 17:24 Labs: Abnormal Lab Results - Last 24 Hours (Table) 03/30/17 03/30/17 03/30/17 Range/Units 17:24 17:24 17:24 WBC 0.4 L* (3.8-10.6) k/uL RBC 2.48 L (3.80-5.40) m/uL Hgb 7.9 L D (11.4-16.0) gm/dL Hct 23.4 L (34.0-46.0) % RDW 16.7 H (11.5-15.5) % Plt Count 23 L* D (150-450) k/uL PT 12.9 H (9.0-12.0) sec INR 1.3 H (<1.2) APTT 33.1 H (22.0-30.0) sec Potassium 3.4 L (3.5-5.1) mmol/L Glucose 206 H (74-99) mg/dL Calcium 8.2 L (8.4-10.2) mg/dL AST 39 H (14-36) U/L Alkaline Phosphatase 137 H (38-126) U/L Total Protein 4.7 L (6.3-8.2) g/dL Albumin 2.5 L (3.5-5.0) g/dL Urine Protein (Negative) Urine Glucose (UA) (Negative) 03/30/17 Range/Units 17:24 WBC (3.8-10.6) k/uL RBC (3.80-5.40) m/uL Hgb (11.4-16.0) gm/dL Hct (34.0-46.0) % RDW (11.5-15.5) % Plt Count (150-450) k/uL PT (9.0-12.0) sec INR (<1.2) APTT (22.0-30.0) sec Potassium (3.5-5.1) mmol/L Glucose (74-99) mg/dL Calcium (8.4-10.2) mg/dL AST (14-36) U/L Alkaline Phosphatase (38-126) U/L Total Protein (6.3-8.2) g/dL Albumin (3.5-5.0) g/dL Urine Protein Trace H (Negative) Urine Glucose (UA) 2+ H (Negative) Assessment and Plan Plan: #1 Severe intractable epigastric pain: Admit to [facility] for pain control She will be on [place] 10 every 4 hours as needed, Dilaudid 1 mg IV every 3 hours when necessary. Labs reviewed #2 Leukopenia: No evidence of fever Discussed with Dr. Woo covering Dr. Balderrama No need for antibiotics at this point Follow-up blood cultures Follow-up WBC in the morning #3 Anemia Even though patient is weak but her blood count is not severely low, hemoglobin is around 8 Dr. Woo did not recommend blood transfusions at this point Follow-up hemoglobin in the morning #4 Thrombocytopenia: Since patient is not bleeding anywhere there is no indication for platelet transfusions Follow-up platelet count in the morning labs. Patient has history of DVT on xarelto, hold oral anticoagulation at this point #5 Diabetes type 2: Hold oral hypoglycemics Check blood sugars every before meals and at bedtime Sliding-scale insulin #6 Benign hypertension, Hypothyroidism: All stable Continue all medications
[2017-03-30] MEDS: SERTRALINE 100 MG TAB PO SCH (20:56)
[2017-03-30] MEDS ORDERED: GLIMEPIRIDE 2 MG TAB PO SCH (21:00)
[2017-03-30] MEDS: INSULIN ASPART 100 UNIT/ML 1 ML 10 ML VIAL SQ SCH (21:55)
[2017-03-30] MEDS: SODIUM CHLORIDE 0.9% 1,000 ML IV SCH (22:20)
[2017-03-31 05:05] VITALS: BMI 44.9
[2017-03-31] MEDS: LEVOTHYROXINE 137 MCG TAB PO SCH (06:16)
[2017-03-31] MEDS: HYDROmorphone 0.5 MG/0.5 ML SYRINGE IVP PRN ×4 (06:16→23:35)
[2017-03-31 07:04] LABS: CH 33.1; CHCM 34.8; HCT 24.6 % (34.0-46.0); HDW 3.38; HGB 8.4 gm/dL (11.4-16.0); Immature Gran Flag Marked; MCH 32.4 pg (25.0-35.0); MCV 95.3 fL (80.0-100.0); Mean Platelet Volume 10.3; RBC 2.58 m/uL (3.80-5.40); RDW 15.4 % (11.5-15.5); WBC (Perox) 0.75
[2017-03-31 07:08] LABS: WBC 0.6 k/uL (3.8-10.6)
[2017-03-31 07:21] LABS: Glucose,Whole Blood 159 mg/dL (75-99)
[2017-03-31 07:34] LABS: Anion Gap 3 mmol/L; Blood Urea Nitrogen 9 mg/dL (7-17); Calcium 8.7 mg/dL (8.4-10.2); Carbon Dioxide 27 mmol/L (22-30); Chloride 108 mmol/L (98-107); Glucose 151 mg/dL (74-99); Magnesium 1.7 mg/dL (1.6-2.3); Non-African American GFR(MDRD) >60 (>60 ml/min/1.73 sqM); Phosphorous 3.3 mg/dL (2.5-4.5); Potassium 3.8 mmol/L (3.5-5.1); Sodium 138 mmol/L (137-145)
[2017-03-31] MEDS: INSULIN ASPART 100 UNIT/ML 1 ML 10 ML VIAL SQ SCH ×4 (07:58→20:55)
[2017-03-31] MEDS: HYDROcodone/APAP 10-325MG 1 EACH TAB PO PRN (08:17)
[2017-03-31] MEDS: ATORVASTATIN 40 MG TAB PO SCH (08:23)
[2017-03-31] MEDS: LISINOPRIL 10 MG TAB PO SCH (08:23)
[2017-03-31] MEDS: OXYBUTYNIN XL 5 MG TAB.ER.24 PO SCH (08:23)
[2017-03-31 08:39] LABS: Add Differential Manual Differential
[2017-03-31 08:41] LABS: Manual Review Performed
[2017-03-31] MEDS ORDERED: RIVAROXABAN 10 MG TAB PO SCH (09:00)
[2017-03-31] MEDS ORDERED: LEVOFLOXACIN 750 MG TAB PO SCH (09:00)
[2017-03-31] MEDS ORDERED: LINAGLIPTIN 5 MG TABLET PO SCH (09:00)
[2017-03-31] MEDS: SODIUM CHLORIDE 0.9% 1,000 ML IV SCH ×2 (11:00→23:35)
[2017-03-31 11:32] LABS: Glucose,Whole Blood 207 mg/dL (75-99)
[2017-03-31] MEDS: CEFEPIME 2 GM in SODIUM CHLORIDE 0.9% 50 ML IVPB SCH ×2 (16:10→23:35)
--- NOTE | 2017-03-31 16:36 | P.PN ---
Subjective Progress Note Date: 03/31/17 Principal diagnosis: weakness 56-year-old female with history of Dr. Ontiveros stent was admitted with weakness. The mass had proven to be lymphoma for which she has received chemotherapy. Last dose of chemo was 2 weeks ago. She denies any fever or denies any nausea or vomiting no diarrhea. Says her appetite has been appropriate she has been eating and drinking. No dysuria no hematuria no cough. Objective - Vital Signs Vital signs: Vital Signs Temp 98 F 03/31/17 08:21 Pulse 79 03/31/17 08:21 Resp 16 03/31/17 09:20 BP 116/55 03/31/17 08:21 Pulse Ox 96 03/31/17 08:21 Intake & Output 03/30/17 03/31/17 03/31/17 18:59 06:59 18:59 Intake Total 960 240 Balance 960 240 Weight 122.47 kg 122.47 kg Intake: Intake, IV Titration 600 Amount Sodium Chloride 0.9% 1, 600 000 ml @ 75 mls/hr IV . [id number] [facility] Rx#:[id number] Oral 360 240 Other: # Voids 2 - Exam gen:alert and oriented lungs:clear to auscultation heart:s1s2 abdomen:soft and depressible,non tender ext:no edema - Labs CBC & Chem 7: 03/31/17 06:20 03/31/17 06:20 Labs: Abnormal Lab Results - Last 24 Hours (Table) 03/30/17 03/30/17 03/30/17 Range/Units 17:24 17:24 17:24 WBC 0.4 L* (3.8-10.6) k/uL RBC 2.48 L (3.80-5.40) m/uL Hgb 7.9 L D (11.4-16.0) gm/dL Hct 23.4 L (34.0-46.0) % RDW 16.7 H (11.5-15.5) % Plt Count 23 L* D (150-450) k/uL PT 12.9 H (9.0-12.0) sec INR 1.3 H (<1.2) APTT 33.1 H (22.0-30.0) sec Potassium 3.4 L (3.5-5.1) mmol/L Chloride (98-107) mmol/L Glucose 206 H (74-99) mg/dL POC Glucose (mg/dL) (75-99) mg/dL Calcium 8.2 L (8.4-10.2) mg/dL AST 39 H (14-36) U/L Alkaline Phosphatase 137 H (38-126) U/L Total Protein 4.7 L (6.3-8.2) g/dL Albumin 2.5 L (3.5-5.0) g/dL Urine Protein (Negative) Urine Glucose (UA) (Negative) 03/30/17 03/30/17 03/31/17 Range/Units 17:24 20:18 06:20 WBC 0.6 L* (3.8-10.6) k/uL RBC 2.58 L (3.80-5.40) m/uL Hgb 8.4 L (11.4-16.0) gm/dL Hct 24.6 L (34.0-46.0) % RDW (11.5-15.5) % Plt Count 25 L* (150-450) k/uL PT (9.0-12.0) sec INR (<1.2) APTT (22.0-30.0) sec Potassium (3.5-5.1) mmol/L Chloride (98-107) mmol/L Glucose (74-99) mg/dL POC Glucose (mg/dL) 155 H (75-99) mg/dL Calcium (8.4-10.2) mg/dL AST (14-36) U/L Alkaline Phosphatase (38-126) U/L Total Protein (6.3-8.2) g/dL Albumin (3.5-5.0) g/dL Urine Protein Trace H (Negative) Urine Glucose (UA) 2+ H (Negative) 03/31/17 03/31/17 Range/Units 06:20 07:19 WBC (3.8-10.6) k/uL RBC (3.80-5.40) m/uL Hgb (11.4-16.0) gm/dL Hct (34.0-46.0) % RDW (11.5-15.5) % Plt Count (150-450) k/uL PT (9.0-12.0) sec INR (<1.2) APTT (22.0-30.0) sec Potassium (3.5-5.1) mmol/L Chloride 108 H (98-107) mmol/L Glucose 151 H (74-99) mg/dL POC Glucose (mg/dL) 159 H (75-99) mg/dL Calcium (8.4-10.2) mg/dL AST (14-36) U/L Alkaline Phosphatase (38-126) U/L Total Protein (6.3-8.2) g/dL Albumin (3.5-5.0) g/dL Urine Protein (Negative) Urine Glucose (UA) (Negative) Microbiology - Last 24 Hours (Table) 03/30/17 17:24 Urine Culture - Preliminary Urine,Voided Assessment and Plan (1) Weakness Narrative/Plan: Still feeling weak continue hydration Tolerating oral Current Visit: Yes Status: Acute Code(s): R53.1 - WEAKNESS SNOMED Code(s) : 53691824 (2) Non-Hodgkin lymphoma of extranodal and solid organ sites Narrative/Plan: Last chemo 2 weeks ago hematology oncology to follow Current Visit: No Status: Acute Priority: High Code(s): C85.99 - NON- HODGKIN LYMPHOMA, UNSP, EXTRANODAL AND SOLID ORGAN SITES SNOMED Code(s): 425645519 (3) Pancytopenia Narrative/Plan: Suspect secondary to chemotherapy wbc 0.6 (no fever) plt 23 (no signs of bleeding) Current Visit: Yes Status: Acute Priority: Medium Code(s): D61.818 - OTHER PANCYTOPENIA SNOMED Code(s): 704722771 (4) Benign essential hypertension Narrative/Plan: controlled Current Visit: No Status: Acute Code(s): I10 - ESSENTIAL (PRIMARY) HYPERTENSION SNOMED Code(s): 6866851 (5) Diabetes mellitus Narrative/Plan: Continue Accu-Chek before meals and at bedtime Current Visit: No Status: Acute Code(s): E11.9 - TYPE 2 DIABETES MELLITUS WITHOUT COMPLICATIONS SNOMED Code(s): 62018262 (6) Hyperlipidemia Current Visit: Yes Status: Acute Code(s): E78.5 - HYPERLIPIDEMIA, UNSPECIFIED SNOMED Code(s): 04402591 (7) VINH (obstructive sleep apnea) Current Visit: No Status: Acute Code(s): G47.33 - OBSTRUCTIVE SLEEP APNEA ( ADULT) (PEDIATRIC) SNOMED Code(s): 80083180
--- NOTE | 2017-03-31 16:42 | CONS ---
CONSULTATION DATE OF SERVICE: 03/31/2017 REASON FOR CONSULTATION: Lymphoma. CHIEF COMPLAINT: Fatigue and abdominal pain. Nidhi is a very pleasant 56-year-old lady, very well known to our practice. has been under the care of Dr. Balderrama. Followup was initially evaluated in the October of 2016 when she was found to have large abdominal and retroperitoneal mass. The patient then subsequently had an open core biopsy of the mesenteric mass at [facility] in December of [address]-guided biopsy was unsuccessful and the pathology revealed a grade 2 follicular lymphoma. She has further staging workup with a PET scan, which revealed extensive involvement with lymphoma above and below the diaphragm as well as very suspicious lesion in the liver, so she was considered to have stage IVB disease because she had associated significant weight loss about 30 to 40 pounds in the preceding 3 to 4 months prior to her diagnosis. The patient subsequently was started on systemic chemotherapy with R-CHOP regimen. Her first treatment, she started cycle 1 on 01/17/2017 and she had total of 4 cycles so far. The last treatment was on 03/22/2017. The patient came in yesterday to the Emergency Department with worsening abdominal pain and epigastric pain, being extremely fatigued and extremely tired. Her blood count revealed significant pancytopenia related to recent chemotherapy. Of note, the patient has been receiving Neulasta injection after each cycle of chemotherapy. So she ended up being admitted to the hospital for progressive weakness, pancytopenia, and pain management. This morning, the epigastric pain is much better, but she feels very exhausted and tired. There is no fever or chills. She used to have diarrhea, but this has resolved over a week ago. No nausea or vomiting. Her weight has remained relatively stable. She is short of breath even with slight exertion. No dysphagia. No melena, hematochezia, hematuria, hemoptysis, hematemesis or epistaxis. PAST MEDICAL HISTORY: Significant for diabetes, history of deep venous thrombosis, hypertension, hyperlipidemia, sleep apnea, factor V Leiden mutation, hypothyroidism. PAST SURGICAL HISTORY: She had adenoidectomy, appendectomy, cholecystectomy, tonsillectomy, carpal tunnel repair bilaterally, hysterectomy, MediPort placement, multiple stents placement, thyroidectomy, ORIF of the right ankle. FAMILY HISTORY: Positive for clotting disorder. Her father at age 71, he had hypertension and diabetes. Her mother had kidney disease and stroke. She passed at age 59 from acute renal failure. Her brother had prostate cancer. One sister had diabetes and the second sister had diabetes. Her daughter had deep venous thrombosis. CURRENT MEDICATIONS: Include Tylenol 650 mg every 6 hours as needed, Lipitor 40 mg daily, Benadryl 25 mg as needed, Lomotil as needed,. [place] 10 mg one every four hours as needed, Dilaudid 0.5 to 1 mg every 3 hours as needed, NovoLog sliding scale, Synthroid 137 mcg daily, Zestril 10 mg daily, Zofran 4 mg IV every 8 hours, Ditropan 5 mg p.o. daily, Percocet as needed., Zoloft 200 mg daily. PHYSICAL EXAMINATION: She is alert, oriented x3. She does not appear to be in distress at this time. Her vital signs are temperature 98.0, her temp max was 99.1, pulse is 79 and regular, respiration 16, blood pressure 116/55. HEENT: Normocephalic, atraumatic. No obvious icterus. NECK: Supple. Chest equal expansion bilaterally. LUNGS: Clear to auscultation and percussion. HEART: Regular rate and rhythm. ABDOMEN: Soft. Mild epigastric tenderness. No obvious organomegaly, masses and bowel sounds are present. Extremities revealed no significant edema. SKIN: No significant bruises, ecchymosis, petechiae. LYMPHATICS: There is no erythema cervical supraclavicular nodes. MUSCULOSKELETAL: Moving all extremities appropriately, no percussion, tenderness detected over spine or sternum. LABORATORY DATA: From today, total WBC is 0.6, hemoglobin 8.4, hematocrit is 24.6, platelet count 25, sodium 138, potassium 3.8, chloride 108, CO2 is 27, BUN is 9, creatinine 0.5. Urinalysis was unremarkable, other than trace of protein and glucose. IMPRESSION: 1. Follicular non-Hodgkin lymphoma, stage IVB with diagnostic and therapeutic circumstances stated above. She is status post 4/6 planned cycles of R-CHOP regimen, her last treatment was on 03/29/2017 and she did receive Neulasta injection after her last cycle. She did have an excellent response to treatment so far. She did have a repeat PET scan after cycle 3, which revealed a significant improvement in her disease. 2. Severe chemotherapy-induced myelosuppression with significant neutropenia. However, clinically there is no evidence to suggest any ongoing infection at this point in time. 3. Other comorbidities as stated above. RECOMMENDATION: 1. Cultures was already obtained. 2. Monitor the patient clinically for any sign of infection. It is reasonable to consider broad-spectrum antibiotics empirically since she is profoundly neutropenic, waiting cultures results. 3. Even though with her history of thrombosis and heterozygous for Factor V Leiden mutation, she is not a candidate for heparin or low-molecular weight heparin for DVT prophylaxis at this point in time, due to significant thrombocytopenia. 4. There is no need for granulocyte colony-stimulating factor since she already received Neulasta in the outpatient setting. Expect her neutrophils to start to recover within the next 24 to 48 hours. 5. Continue current pain medication regimen. She appears to be doing well on it. 6. If she remains stable and afebrile, the patient could be discharged home and she will follow up with Dr. Balderrama in the outpatient setting. The above was discussed in detail with the patient. I have answered all her questions to her satisfaction. Thank you very much for asking me participate in the care of this nice lady. MMODL / IJN: [id number] /
[2017-03-31 16:55] LABS: Glucose,Whole Blood 166 mg/dL (75-99)
[2017-03-31] MEDS: FLUCONAZOLE 100 MG TAB PO SCH (17:28)
[2017-03-31 20:43] LABS: Glucose,Whole Blood 205 mg/dL (75-99)
[2017-03-31] MEDS: SERTRALINE 100 MG TAB PO SCH (20:55)
[2017-04-01] MEDS: HYDROmorphone 0.5 MG/0.5 ML SYRINGE IVP PRN ×5 (04:44→23:56)
[2017-04-01] MEDS: LEVOTHYROXINE 137 MCG TAB PO SCH (04:45)
[2017-04-01 05:03] LABS: Anisocytosis Slight; CHCM 33.3; HCT 24.6 % (34.0-46.0); HDW 3.03; HGB 8.1 gm/dL (11.4-16.0); MCH 32.9 pg (25.0-35.0); MCHC 33.1 g/dL (31.0-37.0); MCV 99.6 fL (80.0-100.0); Macrocytosis Slight; Mean Platelet Volume 10.9; RBC 2.47 m/uL (3.80-5.40); RDW 16.8 % (11.5-15.5); WBC (Perox) 1.03
[2017-04-01] MEDS: HYDROcodone/APAP 10-325MG 1 EACH TAB PO PRN (05:10)
[2017-04-01 06:08] LABS: Add Differential Manual Differential
[2017-04-01 06:15] LABS: Band Neutrophils % 10 %; Nucleated Red Blood Cells 0 /100 WBC (0-0); Total Cells Counted 100
[2017-04-01 06:18] LABS: Manual Review Performed; Polychromasia Present; Tear Drop Cells Present
[2017-04-01 07:36] LABS: Glucose,Whole Blood 147 mg/dL (75-99)
[2017-04-01] MEDS: INSULIN ASPART 100 UNIT/ML 1 ML 10 ML VIAL SQ SCH ×4 (07:54→21:04)
[2017-04-01] MEDS: CEFEPIME 2 GM in SODIUM CHLORIDE 0.9% 50 ML IVPB SCH ×3 (07:54→23:41)
[2017-04-01] MEDS: ATORVASTATIN 40 MG TAB PO SCH (08:15)
[2017-04-01] MEDS: FLUCONAZOLE 100 MG TAB PO SCH (08:15)
[2017-04-01] MEDS: OXYBUTYNIN XL 5 MG TAB.ER.24 PO SCH (08:15)
[2017-04-01] MEDS: LISINOPRIL 10 MG TAB PO SCH (08:15)
--- NOTE | 2017-04-01 09:47 | P.PN ---
Subjective Progress Note Date: 04/01/17 Principal diagnosis: weakness 56-year-old female with history of Dr. Ontiveros stent was admitted with weakness. The mass had proven to be lymphoma for which she has received chemotherapy. Last dose of chemo was 2 weeks ago. She denies any fever or denies any nausea or vomiting no diarrhea. Says her appetite has been appropriate she has been eating and drinking. No dysuria no hematuria no cough. patient is still having pain. Di have nausea, No emesis, still needing IV medications for pain control Objective - Vital Signs Vital signs: Vital Signs Temp 97.2 F L 04/01/17 07:47 Pulse 75 04/01/17 07:47 Resp 16 04/01/17 09:18 BP 111/64 04/01/17 07:47 Pulse Ox 93 L 04/01/17 07:47 Intake & Output 03/31/17 04/01/17 04/01/17 18:59 06:59 18:59 Intake Total 840 2080 Balance 840 2080 Weight 122.47 kg Intake: Intake, IV Titration 600 650 Amount Cefepime 2 gm In Sodium 50 Chloride 0.9% 50 ml @ 100 mls/hr IVPB Q8HR [facility] Rx# :[id number] Sodium Chloride 0.9% 1, 600 600 000 ml @ 75 mls/hr IV . [id number] [facility] Rx#:[id number] Oral 240 1430 Other: Voiding Method Toilet # Voids 1 - Exam gen:alert and oriented oral: evidence of thrush lungs:clear to auscultation heart:s1s2 abdomen:soft and depressible,non tender ext:no edema - Labs CBC & Chem 7: 04/01/17 04:45 03/31/17 06:20 Labs: Abnormal Lab Results - Last 24 Hours (Table) 03/31/17 03/31/17 03/31/17 Range/Units 11:24 16:50 20:35 WBC (3.8-10.6) k/uL RBC (3.80-5.40) m/uL Hgb (11.4-16.0) gm/dL Hct (34.0-46.0) % RDW (11.5-15.5) % Plt Count (150-450) k/uL Neutrophils # (Manual) (1.3-7.7) k/uL Lymphocytes # (Manual) (1.0-4.8) k/uL POC Glucose (mg/dL) 207 H 166 H 205 H (75-99) mg/dL 04/01/17 04/01/17 Range/Units 04:45 07:31 WBC 1.0 L* (3.8-10.6) k/uL RBC 2.47 L (3.80-5.40) m/uL Hgb 8.1 L (11.4-16.0) gm/dL Hct 24.6 L (34.0-46.0) % RDW 16.8 H (11.5-15.5) % Plt Count 19 L* (150-450) k/uL Neutrophils # (Manual) 0.30 L (1.3-7.7) k/uL Lymphocytes # (Manual) 0.51 L (1.0-4.8) k/uL POC Glucose (mg/dL) 147 H (75-99) mg/dL Microbiology - Last 24 Hours (Table) 03/30/17 17:24 Urine Culture - Final Urine,Voided 03/30/17 17:24 Blood Culture - Preliminary Blood No Growth after 24 hours Assessment and Plan (1) Weakness Narrative/Plan: improving,but still feels weak Current Visit: Yes Status: Acute Code(s): R53.1 - WEAKNESS SNOMED Code(s) : 89442082 (2) Non-Hodgkin lymphoma of extranodal and solid organ sites Narrative/Plan: Last chemo 2 weeks ago hematology oncology to follow Current Visit: No Status: Acute Priority: High Code(s): C85.99 - NON- HODGKIN LYMPHOMA, UNSP, EXTRANODAL AND SOLID ORGAN SITES SNOMED Code(s): 867448321 (3) Pancytopenia Narrative/Plan: Suspect secondary to chemotherapy wbc 1.0 (no fever) improving plt 19 (no signs of bleeding) Current Visit: Yes Status: Acute Priority: Medium Code(s): D61.818 - OTHER PANCYTOPENIA SNOMED Code(s): 531381942 (4) Benign essential hypertension Narrative/Plan: controlled Current Visit: No Status: Acute Code(s): I10 - ESSENTIAL (PRIMARY) HYPERTENSION SNOMED Code(s): 7657269 (5) Diabetes mellitus Narrative/Plan: Continue Accu-Chek before meals and at bedtime Current Visit: No Status: Acute Code(s): E11.9 - TYPE 2 DIABETES MELLITUS WITHOUT COMPLICATIONS SNOMED Code(s): 29850636 (6) Hyperlipidemia Current Visit: Yes Status: Acute Code(s): E78.5 - HYPERLIPIDEMIA, UNSPECIFIED SNOMED Code(s): 23213431 (7) VINH (obstructive sleep apnea) Current Visit: No Status: Acute Code(s): G47.33 - OBSTRUCTIVE SLEEP APNEA ( ADULT) (PEDIATRIC) SNOMED Code(s): 89192707 (8) Thrush Narrative/Plan: on diflucan Current Visit: Yes Status: Acute Code(s): B37.0 - CANDIDAL STOMATITIS SNOMED Code(s): 75044930
[2017-04-01] MEDS: SODIUM CHLORIDE 0.9% 1,000 ML IV SCH ×2 (12:00→17:09)
[2017-04-01 12:06] LABS: Glucose,Whole Blood 213 mg/dL (75-99)
[2017-04-01 15:05] LABS: ALT 56 U/L (9-52); AST 29 U/L (14-36); Alkaline Phosphatase 136 U/L (38-126); Anion Gap 3 mmol/L; Blood Urea Nitrogen 8 mg/dL (7-17); Calcium 8.4 mg/dL (8.4-10.2); Carbon Dioxide 28 mmol/L (22-30); Chloride 108 mmol/L (98-107); Glucose 142 mg/dL (74-99); Non-African American GFR(MDRD) >60 (>60 ml/min/1.73 sqM); Potassium 3.9 mmol/L (3.5-5.1); Sodium 139 mmol/L (137-145); Total Bilirubin 0.8 mg/dL (0.2-1.3); Total Protein 4.7 g/dL (6.3-8.2)
--- NOTE | 2017-04-01 15:57 | PN ---
PROGRESS NOTE DATE OF SERVICE: April 01, 2017. CHIEF COMPLAINT: Sore throat and tired. Johnna is seen today as a followup. She has a sore throat and difficulty swallowing food and she feels tired. Her epigastric and abdominal pain have improved significantly. No nausea or vomiting. Her bowels are working fine. No melena, hematochezia, hematuria, hemoptysis, hematemesis or epistaxis. CURRENT MEDICATION: Include Tylenol as needed, Lipitor 40 mg daily, cefepime 2 g IV piggyback every 8 hours. Benadryl as needed and Lomotil as needed, Diflucan 100 mg daily, [place] 10 every 8 hours as needed, Dilaudid 0.1 to 1 mg IV every 3 hours. NovoLog sliding scale. Synthroid 137 mcg daily. Zestril 10 mg daily. Zofran 4 mg IV every 8 hours as needed. Percocet as needed. Zoloft 200 mg daily. PHYSICAL EXAMINATION: She is alert, oriented x3. She does not appear to be in distress. Her vital signs are temperature 97.2, afebrile, pulse 75 regular, respirations 16, blood pressure 119/64. HEENT: Normocephalic, atraumatic. No icterus. Oral mucosa are dry. No obvious thrush. NECK: Supple. Chest equal expansion bilaterally. Lungs are clear to auscultation. Heart is regular rhythm. Abdomen is soft. No tenderness or organomegaly or masses. EXTREMITIES: No edema. Skin: A few bruises. No ecchymosis on the extremities. No petechiae or ecchymosis. LABORATORY DATA: WBC are 1.8, hemoglobin 8.1, hematocrit is 24.6, platelet count 19. IMPRESSION: 1. Stage IVB follicular lymphoma, status post 4 cycles of R-CHOP regimen. 2. Mucositis related to recent chemotherapy. 3. Severe chemotherapy-induced myelosuppression with significant thrombocytopenia and neutropenia. RECOMMENDATION: 1. Continue supportive care. 2. Continue empiric broad-spectrum antibiotics and Diflucan. 3. The patient did receive Neulasta in the outpatient setting right after her last cycle of chemotherapy and hopefully her neutrophils will start to improve within the next 24 hours. 4. Avoid heparin or low-molecular weight heparin for deep venous thrombosis prophylaxis due to significant thrombocytopenia. 5. Once the neutrophils recover and she remains afebrile and her blood cultures are negative, enteric antibiotics could be discontinued and the patient could be discharged home. MINESH / IJN: [id number] /
[2017-04-01 17:12] LABS: Glucose,Whole Blood 195 mg/dL (75-99)
[2017-04-01 20:48] LABS: Glucose,Whole Blood 261 mg/dL (75-99)
[2017-04-01] MEDS: SERTRALINE 100 MG TAB PO SCH (21:03)
[2017-04-02] MEDS: HYDROmorphone 0.5 MG/0.5 ML SYRINGE IVP PRN ×6 (02:55→20:34)
[2017-04-02] MEDS: HYDROcodone/APAP 10-325MG 1 EACH TAB PO PRN (04:03)
[2017-04-02] MEDS: SODIUM CHLORIDE 0.9% 1,000 ML IV SCH ×2 (06:19→17:05)
[2017-04-02] MEDS: LEVOTHYROXINE 137 MCG TAB PO SCH (06:19)
[2017-04-02 06:48] LABS: Anisocytosis Slight; CH 32.3; CHCM 33.5; HCT 23.4 % (34.0-46.0); HDW 3.16; HGB 7.9 gm/dL (11.4-16.0); MCH 32.5 pg (25.0-35.0); MCHC 33.6 g/dL (31.0-37.0); MCV 96.9 fL (80.0-100.0); Macrocytosis Slight; Mean Platelet Volume 9.2; RBC 2.42 m/uL (3.80-5.40); RDW 17.3 % (11.5-15.5)
[2017-04-02 06:51] LABS: WBC 1.9 k/uL (3.8-10.6)
[2017-04-02 07:12] LABS: Anion Gap 4 mmol/L; Blood Urea Nitrogen 5 mg/dL (7-17); Calcium 8.5 mg/dL (8.4-10.2); Carbon Dioxide 27 mmol/L (22-30); Chloride 108 mmol/L (98-107); Glucose 112 mg/dL (74-99); Non-African American GFR(MDRD) >60 (>60 ml/min/1.73 sqM); Potassium 3.7 mmol/L (3.5-5.1); Sodium 139 mmol/L (137-145)
[2017-04-02 07:43] LABS: Glucose,Whole Blood 124 mg/dL (75-99)
[2017-04-02] MEDS: INSULIN ASPART 100 UNIT/ML 1 ML 10 ML VIAL SQ SCH ×4 (08:02→20:40)
[2017-04-02] MEDS: OXYBUTYNIN XL 5 MG TAB.ER.24 PO SCH (08:03)
[2017-04-02] MEDS: LISINOPRIL 10 MG TAB PO SCH (08:03)
[2017-04-02] MEDS: FLUCONAZOLE 100 MG TAB PO SCH (08:03)
[2017-04-02] MEDS: ATORVASTATIN 40 MG TAB PO SCH (08:03)
[2017-04-02] MEDS: CEFEPIME 2 GM in SODIUM CHLORIDE 0.9% 50 ML IVPB SCH (08:04)
--- NOTE | 2017-04-02 11:13 | P.PN ---
Subjective Progress Note Date: 04/02/17 Principal diagnosis: Abdominal pain Patient is a 56-year-old female with a history of follicular lymphoma status post 4 rounds of our CHOP therapy, diabetes, and obesity who initially presented to the emergency department with complaints of abdominal pain. This is not being controlled by her home pain medication regiment. In the ER she was found to have pancytopenia and was admitted for further workup. Nidhi had already received Neulasta from the oncology clinic. She has been having diarrhea but this resolved with Lomotil. She has also been maintained off her Xarelto that with her prior DVT as her platelets have been low. She was started on empiric antibiotics for her pancytopenia. Oncology was consult it. She developed thrush and Diflucan was added. Her white blood cell count has been improving daily. Her pain is better controlled. Patient seen and examined at bedside. She complains of throat and mouth pain that is worse with eating and swallowing. She denies any chest pain, shortness breath, nausea, or vomiting. She has no other complaints currently. We discussed her Xarelto use. We discussed that she will likely go home tomorrow. Objective - Vital Signs Vital signs: Vital Signs Temp 97.9 F 04/02/17 07:00 Pulse 75 04/02/17 07:00 Resp 18 04/02/17 07:00 BP 125/59 04/02/17 07:00 Pulse Ox 95 04/02/17 07:00 Intake & Output 04/01/17 04/02/17 04/02/17 18:59 06:59 18:59 Intake Total 900 360 Balance 900 360 Intake: Intake, IV Titration 900 Amount Sodium Chloride 0.9% 1, 900 000 ml @ 75 mls/hr IV . [id number] [facility] Rx#:[id number] Oral 360 Other: Voiding Method Toilet Toilet Toilet # Voids 1 - Exam General: non toxic, mild distress, appears at stated age Derm: warm, dry Head: atraumatic, normocephalic, symmetric Eyes: EOMI, no lid lag, anicteric sclera Mouth: no lip lesion, mucus membranes moist, + thrush Cardiovascular: S1S2 reg, no murmur, positive posterior tibial pulse bilateral, Lungs: CTA bilateral, no rhonchi, no rales , no accessory muscle use Abdominal: soft, nontender to palpation, no guarding, no appreciable organomegaly Ext: no gross muscle atrophy, no edema, no contractures Neuro: CN II-XI grossly intact, no focal neuro deficits Psych: Alert, oriented, appropriate affect - Labs CBC & Chem 7: 04/02/17 06:20 04/02/17 06:20 Labs: Abnormal Lab Results - Last 24 Hours (Table) 04/01/17 04/01/17 04/01/17 Range/Units 04:45 12:03 17:10 WBC (3.8-10.6) k/uL RBC (3.80-5.40) m/uL Hgb (11.4-16.0) gm/dL Hct (34.0-46.0) % RDW (11.5-15.5) % Plt Count (150-450) k/uL Chloride 108 H (98-107) mmol/L BUN (7-17) mg/dL Glucose 142 H (74-99) mg/dL POC Glucose (mg/dL) 213 H 195 H (75-99) mg/dL ALT 56 H (9-52) U/L Alkaline Phosphatase 136 H (38-126) U/L Total Protein 4.7 L (6.3-8.2) g/dL Albumin 2.5 L (3.5-5.0) g/dL 04/01/17 04/02/17 04/02/17 Range/Units 20:43 06:20 06:20 WBC 1.9 L* (3.8-10.6) k/uL RBC 2.42 L (3.80-5.40) m/uL Hgb 7.9 L (11.4-16.0) gm/dL Hct 23.4 L (34.0-46.0) % RDW 17.3 H (11.5-15.5) % Plt Count 23 L* (150-450) k/uL Chloride 108 H (98-107) mmol/L BUN 5 L (7-17) mg/dL Glucose 112 H (74-99) mg/dL POC Glucose (mg/dL) 261 H (75-99) mg/dL ALT (9-52) U/L Alkaline Phosphatase (38-126) U/L Total Protein (6.3-8.2) g/dL Albumin (3.5-5.0) g/dL 04/02/17 Range/Units 07:37 WBC (3.8-10.6) k/uL RBC (3.80-5.40) m/uL Hgb (11.4-16.0) gm/dL Hct (34.0-46.0) % RDW (11.5-15.5) % Plt Count (150-450) k/uL Chloride (98-107) mmol/L BUN (7-17) mg/dL Glucose (74-99) mg/dL POC Glucose (mg/dL) 124 H (75-99) mg/dL ALT (9-52) U/L Alkaline Phosphatase (38-126) U/L Total Protein (6.3-8.2) g/dL Albumin (3.5-5.0) g/dL Microbiology - Last 24 Hours (Table) 03/30/17 17:24 Blood Culture - Preliminary Blood No Growth after 48 hours Assessment and Plan Assessment: Pancytopenia secondary to the effects of chemo -Oncology recommendations appreciated -Status post Neulasta -Follow CBC with differential in a.m. -Stop Antibiotics with no fevers and improvement of white blood cell count Stage IV follicular lymphoma status post 4 rounds of our CHOP therapy -Oncology recommendations appreciated, continue follow-up as outpatient Thrush with mucositis -Nystatin -When necessary Magic mouthwash Diabetes mellitus type 2 -Hold oral hypoglycemics -Sliding-scale insulin -Follow blood sugars -Hemoglobin A1c last admission was 8.6 and Januvia was added Morbid obesity with BMI 44.9 -Structured outpatient weight loss Chronic: Hypertension Dyslipidemia Sleep Apnea DVT prophylaxis: SCDs Discussed with: Patient and nursing Anticipated discharge: [address]: Home A total of 35 minutes was spent on the care of this complex patient more than 50 % of the time was spent in counseling and care coordination.
[2017-04-02 11:38] LABS: Glucose,Whole Blood 165 mg/dL (75-99)
[2017-04-02] MEDS: MAG HYDROX/AL HYDROX/SIMETH 30 ML, diphenhydrAMINE ELIXIR 75 MG, LIDOCAINE VISCOUS 30 ML PO PRN ×6 (17:09→21:12)
[2017-04-02 17:31] LABS: Glucose,Whole Blood 201 mg/dL (75-99)
--- NOTE | 2017-04-02 18:47 | P.PN ---
Subjective Progress Note Date: 04/02/17 the patient still feels quite fatigued, and complains of sore throat and some pain on swallowing. Her diarrhea has improved. No fever or chills. She has not had any overt nausea or vomiting. Objective - Vital Signs Vital signs: Vital Signs Temp 97.9 F 04/02/17 07:00 Pulse 77 04/02/17 15:00 Resp 18 04/02/17 15:00 BP 116/62 04/02/17 15:00 Pulse Ox 96 04/02/17 15:00 Intake & Output 04/01/17 04/02/17 04/02/17 18:59 06:59 18:59 Intake Total 900 360 600 Balance 900 360 600 Intake: IV 525 Sodium Chloride 0.9% 1, 525 000 ml @ 75 mls/hr IV . [id number] [facility] Rx#:[id number] Intake, IV Titration 900 75 Amount Cefepime 2 gm In Sodium 75 Chloride 0.9% 50 ml @ 100 mls/hr IVPB Q8HR [facility] Rx# :[id number] Sodium Chloride 0.9% 1, 900 000 ml @ 75 mls/hr IV . [id number] [facility] Rx#:[id number] Oral 360 Other: Voiding Method Toilet Toilet Toilet # Voids 1 1 - Constitutional General appearance: Present: no acute distress - EENT Eyes: Present: EOMI, PERRLA ENT: Present: hearing grossly normal, normal oropharynx - Respiratory Respiratory: bilateral: diminished - Cardiovascular Rhythm: regular Heart sounds: normal: S1, S2 - Gastrointestinal General gastrointestinal: Present: normal bowel sounds, soft - Integumentary Integumentary: Present: normal - Neurologic Neurologic: Present: CNII-XII intact - Musculoskeletal Musculoskeletal: Present: generalized weakness, strength equal bilaterally - Psychiatric Psychiatric: Present: A&O x's 3, appropriate affect - Labs CBC & Chem 7: 04/02/17 06:20 04/02/17 06:20 Labs: Abnormal Lab Results - Last 24 Hours (Table) 04/01/17 04/02/17 04/02/17 Range/Units 20:43 06:20 06:20 WBC 1.9 L* (3.8-10.6) k/uL RBC 2.42 L (3.80-5.40) m/uL Hgb 7.9 L (11.4-16.0) gm/dL Hct 23.4 L (34.0-46.0) % RDW 17.3 H (11.5-15.5) % Plt Count 23 L* (150-450) k/uL Chloride 108 H (98-107) mmol/L BUN 5 L (7-17) mg/dL Glucose 112 H (74-99) mg/dL POC Glucose (mg/dL) 261 H (75-99) mg/dL 04/02/17 04/02/17 04/02/17 Range/Units 07:37 11:35 17:23 WBC (3.8-10.6) k/uL RBC (3.80-5.40) m/uL Hgb (11.4-16.0) gm/dL Hct (34.0-46.0) % RDW (11.5-15.5) % Plt Count (150-450) k/uL Chloride (98-107) mmol/L BUN (7-17) mg/dL Glucose (74-99) mg/dL POC Glucose (mg/dL) 124 H 165 H 201 H (75-99) mg/dL Microbiology - Last 24 Hours (Table) 03/30/17 17:24 Blood Culture - Preliminary Blood No Growth after 48 hours Assessment and Plan (1) Pancytopenia Narrative/Plan: this is related to anti-neoplastic chemotherapy. Counts are starting to improve, with WBC 1.9 today. hemoglobin is stable in a safe range at 7.9. Platelets are also in a safe range at 23, given no evidence of bleeding. The patient has already received Neulasta. - Continue prophylactic antibiotics. No evidence of any fever. - once WBC is recovered into a safe range, the patient can likely be discharged home. Current Visit: Yes Status: Acute Priority: Medium Code(s): D61.818 - OTHER PANCYTOPENIA SNOMED Code(s): 618464470 (2) Thrush Narrative/Plan: the patient is on topical therapy, as well as oral Diflucan. Oral examination did not show any thrush on the tongue or in the pharynx. Continue current regimen. This is expected to improve as WBC recovers. Current Visit: Yes Status: Acute Code(s): B37.0 - CANDIDAL STOMATITIS SNOMED Code(s): 03023019 (3) Weakness Narrative/Plan: This is multi factorial, due to direct chemotherapy effect, as well as pancytopenia. This is also expected to improve as the patient gets further out from chemotherapy and her counts recover. continue supportive care Current Visit: Yes Status: Acute Code(s): R53.1 - WEAKNESS SNOMED Code(s) : 88633498
[2017-04-02 20:23] LABS: Glucose,Whole Blood 199 mg/dL (75-99)
[2017-04-02] MEDS: SERTRALINE 100 MG TAB PO SCH (21:10)
[2017-04-03 00:23] VITALS: RESP 16
[2017-04-03] MEDS: HYDROmorphone 0.5 MG/0.5 ML SYRINGE IVP PRN ×4 (03:47→14:12)
[2017-04-03] MEDS: SODIUM CHLORIDE 0.9% 1,000 ML IV SCH (05:19)
[2017-04-03] MEDS: LEVOTHYROXINE 137 MCG TAB PO SCH (05:22)
[2017-04-03] MEDS: MAG HYDROX/AL HYDROX/SIMETH 30 ML, diphenhydrAMINE ELIXIR 75 MG, LIDOCAINE VISCOUS 30 ML PO PRN ×3 (06:19)
[2017-04-03 07:12] LABS: Glucose,Whole Blood 147 mg/dL (75-99)
[2017-04-03 07:13] LABS: Anisocytosis Slight; CH 33.2; CHCM 35.2; HCT 22.8 % (34.0-46.0); HDW 3.55; HGB 7.8 gm/dL (11.4-16.0); MCH 32.5 pg (25.0-35.0); MCHC 34.3 g/dL (31.0-37.0); MCV 94.7 fL (80.0-100.0); Mean Platelet Volume 9.5; Poikilocytosis Slight; RBC 2.41 m/uL (3.80-5.40); WBC 2.4 k/uL (3.8-10.6); WBC (Perox) 2.56
[2017-04-03] MEDS: LISINOPRIL 10 MG TAB PO SCH (07:46)
[2017-04-03] MEDS: ATORVASTATIN 40 MG TAB PO SCH (07:46)
[2017-04-03] MEDS: FLUCONAZOLE 100 MG TAB PO SCH (07:46)
[2017-04-03] MEDS: OXYBUTYNIN XL 5 MG TAB.ER.24 PO SCH (07:46)
[2017-04-03] MEDS: INSULIN ASPART 100 UNIT/ML 1 ML 10 ML VIAL SQ SCH ×2 (07:49→12:36)
[2017-04-03 07:54] LABS: Add Differential Manual Differential
[2017-04-03 08:02] LABS: Band Neutrophils % 1 %; Metamyelocytes % 1 %; Myelocytes % 1 %; Nucleated Red Blood Cells 0 /100 WBC (0-0); Total Cells Counted 200
[2017-04-03 08:20] VITALS: BP 127/72; PULSE 74; TEMP 99.3
[2017-04-03] MEDS ORDERED: DIAZEPAM 2 MG TAB PO PRN (10:39)
--- NOTE | 2017-04-03 10:55 | P.DS ---
Providers Date of admission: 03/30/17 19:14 Expected date of discharge: 04/03/17 Attending physician: Mireya Pierson MD Consults: 03/30/17 19:27 Consult Physician Stat Consulting Provider: Forrest Balderrama Consult Reason/Comments: Lymphoma, pancytopenia Do you want consulting provider notified?: Yes Primary care physician: Obdulia Jasso - Discharge Diagnosis(es) (1) Pancytopenia Status: Acute Priority: Medium (2) Thrush Status: Acute (3) Non-Hodgkin lymphoma of extranodal and solid organ sites Status: Chronic Priority: High (4) Diabetes mellitus Status: Chronic (5) Morbid obesity Status: Chronic Hospital Course: Patient is a 56-year-old female with a 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 This is not being controlled by her home pain medication regiment. In the ER she was found to have pancytopenia and was admitted for further workup. Nidhi had already received Neulasta from the oncology clinic. She has been having diarrhea but this has been resolved with Lomotil. She has also been maintained off her Xarelto that with her prior DVT as her platelets have been low. She was started on empiric antibiotics for her pancytopenia. Oncology was consulted. She developed thrush and Diflucan was added. Her white blood cell count has been improving daily. Her pain is better controlled. She continued to have difficulty swallowing and viscous lidocine was added which helped to improve her symptoms but they did persist. She has also found to have significant cervical dysfunction and elevated rib 1 on the left and had on session of OMT on her day of discharge. She was feeling improved and felt that she could take in soft things. Her WBC count increased to 2.4 with ANC 1.3 and her platelets were 43. She was dischraged home in stable condition. She has been logging her sugars for Dr. Jasso and they have been better controlled. She will follow up with Oncology next week on 04/[address] Avila in 1 week. Patient seen and examined at bedside. Still having some pain with swelling, viscous lidocaine has helped with this. She is able to tolerate a soft diet. Overall her pain is better controlled and her fatigue has been improving. She is no longer having diarrhea. Vital signs reviewed and stable. General: non toxic, no distress, appears older than stated age Derm: warm, dry Head: atraumatic, normocephalic, symmetric Eyes: EOMI, no lid lag, anicteric sclera Mouth: no lip lesion, mucus membranes moist Cardiovascular: S1S2 reg, no murmur, positive posterior tibial pulse bilateral, Lungs: CTA bilateral, no rhonchi, no rales , no accessory muscle use Abdominal: soft, nontender to palpation, no guarding, no appreciable organomegaly Ext: no gross muscle atrophy, no edema, no contractures Neuro: CN II-XI grossly intact, no focal neuro deficits Psych: Alert, oriented, appropriate affect OMT: Elevated rib 1 on the left treated with thoracic inlet earliest and myofascial release, improvement on recheck with rib 1 down in appropriate position Cervical strain on the left with reduced rotation had-treated with OA decompression, myofascial release 10 minutes, and thoracic inlet release. On recheck tissue texture abnormality improved A total of 45 minutes of time were spent preparing this complex discharge summary . Pertinent Studies: None Procedures: None Patient Condition at Discharge: Fair Plan - Discharge Summary New Discharge Prescriptions: New Diazepam [Valium] 2 mg PO TID PRN #10 tab PRN Reason: Muscle Spasm Fluconazole [Diflucan] 100 mg PO DAILY #6 tab Lidocaine Viscous [Xylocaine Viscous 2%] 30 ml PO Q4HR PRN 10 Days #1 bottle PRN Reason: mouth pain Continue Sertraline [Zoloft] 200 mg PO HS Atorvastatin [Lipitor] 40 mg PO DAILY Lisinopril 10 mg PO DAILY Levothyroxine Sodium [Synthroid] 137 mcg PO DAILY HYDROcodone/APAP 10-325MG [[place] 10-325] 1 tab PO Q4-6H PRN PRN Reason: Pain Cranberry/Vit C 4200mg 1 tab PO DAILY PRN PRN Reason: UTI SYMPTOMS Glimepiride [Amaryl] 2 mg PO BID predniSONE 100 mg PO DIRECTED Omeprazole [PriLOSEC] 10 mg PO DAILY Insulin Lispro [humaLOG Kwikpen] See Protocol SQ AC-TID PRN PRN Reason: Blood Sugar - High sitaGLIPtin PHOSPHATE [Januvia] 100 mg PO DAILY #30 tab Insulin Aspart Protam & Aspart [NovoLOG MIX 70-30 Flexpen] See Protocol SQ AC -TID PRN PRN Reason: Blood Sugar - High Acetaminophen/Diphenhydramine [Tylenol PM 500-25mg] 1 tab PO HS PRN PRN Reason: Insomnia oxyCODONE-APAP 10-325MG [Percocet 10-325 mg] 1 tab PO QID PRN PRN Reason: Pain Tolterodine ER [Detrol LA] 4 mg PO DAILY Loratadine 10 mg PO DAILY PRN PRN Reason: neulasta Diphenox-Atrop 2.5-0.025 mg [Lomotil] 2 tab PO QID PRN PRN Reason: Diarrhea Discontinued Levofloxacin [Levaquin] 750 mg PO DAILY Rivaroxaban [Xarelto] 20 mg PO DAILY Discharge Medication List Sertraline [Zoloft] 200 mg PO HS 03/07/15 [History] Atorvastatin [Lipitor] 40 mg PO DAILY 02/10/16 [History] Lisinopril 10 mg PO DAILY 02/10/16 [History] Levothyroxine Sodium [Synthroid] 137 mcg PO DAILY 08/17/16 [History] Cranberry/Vit C 4200mg 1 tab PO DAILY PRN 12/19/16 [History] Glimepiride [Amaryl] 2 mg PO BID 12/19/16 [History] HYDROcodone/APAP 10-325MG [[place] 10-325] 1 tab PO Q4-6H PRN 12/19/16 [History] Insulin Lispro [humaLOG Kwikpen] See Protocol SQ AC-TID PRN 03/08/17 [History] Omeprazole [PriLOSEC] 10 mg PO DAILY 03/08/17 [History] predniSONE 100 mg PO DIRECTED 03/08/17 [History] sitaGLIPtin PHOSPHATE [Januvia] 100 mg PO DAILY #30 tab 03/13/17 [Rx] Acetaminophen/Diphenhydramine [Tylenol PM 500-25mg] 1 tab PO HS PRN 03/30/17 [ History] Diphenox-Atrop 2.5-0.025 mg [Lomotil] 2 tab PO QID PRN 03/30/17 [History] Insulin Aspart Protam & Aspart [NovoLOG MIX 70-30 Flexpen] See Protocol SQ AC- TID PRN 03/30/17 [History] Loratadine 10 mg PO DAILY PRN 03/30/17 [History] Tolterodine ER [Detrol LA] 4 mg PO DAILY 03/30/17 [History] oxyCODONE-APAP 10-325MG [Percocet 10-325 mg] 1 tab PO QID PRN 03/30/17 [History] Diazepam [Valium] 2 mg PO TID PRN #10 tab 04/03/17 [Rx] Fluconazole [Diflucan] 100 mg PO DAILY #6 tab 04/03/17 [Rx] Lidocaine Viscous [Xylocaine Viscous 2%] 30 ml PO Q4HR PRN 10 Days #1 bottle [Rx] Follow up Appointment(s)/Referral(s): Obdulia Jasso MD [Primary Care Provider] - 04/11/17 2:30 pm Forrest Balderrama MD [STAFF PHYSICIAN] - 04/12/17 4:45 pm Patient Instructions/Handouts: Diazepam (By mouth), Fluconazole (By mouth), Lidocaine (Into the mouth), Weakness (GEN), Pancytopenia (DC) Activity/Diet/Wound Care/Special Instructions: soft, low acid diet activity as tolerated. Continue to log your blood sugars. Consider Massage to control pain. Discharge Disposition: HOME SELF-CARE
[2017-04-03 11:33] LABS: Glucose,Whole Blood 216 mg/dL (75-99)
--- NOTE | 2017-04-03 16:36 | P.PN ---
Subjective Progress Note Date: 04/03/17 the patient still complains of a persistent sore throat on the left side, but is able to swallow soft for the liquids well. She generally feels better in terms of energy and ambition. No fever, chills, nausea or vomiting. Diarrhea has stopped. Objective - Vital Signs Vital signs: Vital Signs Temp 99.3 F 04/03/17 07:00 Pulse 74 04/03/17 07:00 Resp 16 04/03/17 07:00 BP 127/72 04/03/17 07:00 Pulse Ox 94 L 04/03/17 07:00 Intake & Output 04/02/17 04/03/17 04/03/17 18:59 06:59 18:59 Intake Total 600 863 Balance 600 863 Intake: IV 525 863 Sodium Chloride 0.9% 1, 525 863 000 ml @ 75 mls/hr IV . [id number] [facility] Rx#:[id number] Intake, IV Titration 75 Amount Cefepime 2 gm In Sodium 75 Chloride 0.9% 50 ml @ 100 mls/hr IVPB Q8HR [facility] Rx# :[id number] Other: Voiding Method Toilet Toilet Toilet # Voids 1 1 - Constitutional General appearance: Present: no acute distress - EENT Eyes: Present: EOMI, PERRLA ENT: Present: hearing grossly normal, normal oropharynx - Respiratory Respiratory: bilateral: CTA - Cardiovascular Rhythm: regular Heart sounds: normal: S1, S2 - Gastrointestinal General gastrointestinal: Present: normal bowel sounds, soft - Integumentary Integumentary: Present: normal - Neurologic Neurologic: Present: CNII-XII intact - Musculoskeletal Musculoskeletal: Present: generalized weakness, strength equal bilaterally - Psychiatric Psychiatric: Present: A&O x's 3, appropriate affect - Labs CBC & Chem 7: 04/03/17 06:20 04/02/17 06:20 Labs: Abnormal Lab Results - Last 24 Hours (Table) 04/02/17 04/02/17 04/03/17 Range/Units 17:23 20:21 06:20 WBC 2.4 L (3.8-10.6) k/uL RBC 2.41 L (3.80-5.40) m/uL Hgb 7.8 L (11.4-16.0) gm/dL Hct 22.8 L (34.0-46.0) % RDW 17.0 H (11.5-15.5) % Plt Count 42 L* D (150-450) k/uL Lymphocytes # (Manual) 0.55 L (1.0-4.8) k/uL Metamyelocytes # (Man) 0.02 H (0) k/uL Myelocytes # (Manual) 0.02 H (0) k/uL POC Glucose (mg/dL) 201 H 199 H (75-99) mg/dL 04/03/17 04/03/17 Range/Units 06:59 11:31 WBC (3.8-10.6) k/uL RBC (3.80-5.40) m/uL Hgb (11.4-16.0) gm/dL Hct (34.0-46.0) % RDW (11.5-15.5) % Plt Count (150-450) k/uL Lymphocytes # (Manual) (1.0-4.8) k/uL Metamyelocytes # (Man) (0) k/uL Myelocytes # (Manual) (0) k/uL POC Glucose (mg/dL) 147 H 216 H (75-99) mg/dL Microbiology - Last 24 Hours (Table) 03/30/17 17:24 Blood Culture - Preliminary Blood No Growth after 72 hours Assessment and Plan (1) Pancytopenia Narrative/Plan: he patient's counts continue to improve. Hemoglobin is stable at 7.9. Platelets have improved into the 40,000 range. WBC is increased to 2.4, with absolute neutrophil count now 1.3. The patient remains afebrile. Continued improvement in the counts is expected. There are all in a safe range. As there is no evidence of infection, and patient's symptoms have improved with supportive care, from our standpoint she can be discharged home. Current Visit: Yes Status: Acute Priority: Medium Code(s): D61.818 - OTHER PANCYTOPENIA SNOMED Code(s): 896491367 (2) Thrush Narrative/Plan: the patient is able to tolerate soft foods and liquids well. Thrush is xpected to improve further now that white blood count has recovered. Current Visit: Yes Status: Acute Code(s): B37.0 - CANDIDAL STOMATITIS SNOMED Code(s): 49899939 (3) Weakness Current Visit: Yes Status: Acute Code(s): R53.1 - WEAKNESS SNOMED Code(s) : 43843581 Plan: patient already has a post chemotherapy follow up scheduled for next week. She was advised to keep the same
== END 2017-04-03 16:30 | disposition home or self-care (01) | DRG 809 ==
LOC: EC 16:11 → 5ONC 19:14
PROVIDERS: ADMIT Internal Medicine; ATTEND Internal Medicine
DX: D61.810 Antineoplastic chemotherapy induced pancytopenia (principal); C82.19 Follicular lymphoma grade II, extranodal and solid organ sites; B37.0 Candidal stomatitis; D68.51 Activated protein C resistance; D69.59 Other secondary thrombocytopenia; E66.01 Morbid (severe) obesity due to excess calories; E03.9 Hypothyroidism, unspecified; E11.9 Type 2 diabetes mellitus without complications; E78.5 Hyperlipidemia, unspecified; G47.33 Obstructive sleep apnea (adult) (pediatric); I10 Essential (primary) hypertension; K12.30 Oral mucositis (ulcerative), unspecified; R13.10 Dysphagia, unspecified; T45.1X5A Adverse effect of antineoplastic and immunosuppressive drugs, initial encounter; Z79.01 Long term (current) use of anticoagulants; Z79.899 Other long term (current) drug therapy; Z82.3 Family history of stroke; Z82.49 Family history of ischemic heart disease and other diseases of the circulatory system; Z83.2 Family history of diseases of the blood and blood-forming organs and certain disorders involving the immune mechanism; Z83.3 Family history of diabetes mellitus; Z84.1 Family history of disorders of kidney and ureter; Z86.718 Personal history of other venous thrombosis and embolism; Z79.84 Long term (current) use of oral hypoglycemic drugs
CPT/HCPCS: 36415; 71020; 74000; 80048; 80053; 81003; 82550; 82553; 83605; 83735; 83880; 84100; 84484; 85025; 85027; 85610; 85730; 87040; 87086; 93005; 96372; 96374; 96376; 99285

== ENCOUNTER 2017-05-12 18:57 | Inpatient (IN) | payer MEDICARE ==
[2017-05-12] MEDS ORDERED: CHLORPHEN-HYDROcod 8-10mg/5ml 5 ML ORAL.SYRG PO STA (19:25)
[2017-05-12] MEDS ORDERED: ACETAMINOPHEN TAB 500 MG TAB PO STA (19:25)
[2017-05-12] MEDS ORDERED: SODIUM CHLORIDE 0.9% 1,000 ML IV STA (19:25)
--- NOTE | 2017-05-12 19:30 | ED ---
Fever HPI - General Chief Complaint: Fever Stated Complaint: Weakness/Cough Time Seen by Provider: 05/12/17 19:15 Source: patient, RN notes reviewed Mode of arrival: wheelchair Limitations: no limitations - History of Present Illness Initial Comments: This a 56-year-old female presents emergency Department chief complaint fever, weakness, cough. Patient states that she started with a cough 5 days ago and has progressively gotten worse. She states that she that she could fight this off herself but states that she's getting worse. She has not taken Tylenol Motrin for her fever. She did take some heartburn earlier today. Patient states her cough is dry, hacking, and persistent. Patient states that she's had some sick contacts. Patient's last treatment chemo was 9 days ago. Patient denies any ear pain but states that she feels like she has some lymph node swollen on the left side of her neck. Denies neck stiffness which she does complain of a headache. Patient denies any abdominal pain denies any nausea, vomiting, diarrhea constipation. She states that she hadn't noticed some bright lang which are red on her left bicep region and left thumb. - Related Data Home Medications Medication Instructions Recorded Confirmed Sertraline [Zoloft] 200 mg PO HS 03/07/15 05/12/17 Atorvastatin [Lipitor] 40 mg PO DAILY 02/10/16 05/12/17 Lisinopril 10 mg PO DAILY 02/10/16 05/12/17 Levothyroxine Sodium [Synthroid] 137 mcg PO DAILY 08/17/16 05/12/17 Cranberry/Vit C 4200mg 1 tab PO DAILY PRN 12/19/16 05/12/17 Glimepiride [Amaryl] 2 mg PO BID 12/19/16 05/12/17 HYDROcodone/APAP 10-325MG [[place] 1 tab PO Q4-6H PRN 12/19/16 05/12/17 10-325] Insulin Lispro [humaLOG Kwikpen] See Protocol SQ AC-TID PRN 03/08/17 05/12/17 Omeprazole [PriLOSEC] 10 mg PO DAILY 03/08/17 05/12/17 Acetaminophen/Diphenhydramine 1 tab PO HS PRN 03/30/17 05/12/17 [Tylenol PM 500-25mg] Diphenox-Atrop 2.5-0.025 mg 2 tab PO QID PRN 03/30/17 05/12/17 [Lomotil] Insulin Aspart Protam & Aspart See Protocol SQ AC-TID PRN 03/30/17 05/12/17 [NovoLOG MIX 70-30 Flexpen] Loratadine 10 mg PO DAILY PRN 03/30/17 05/12/17 Tolterodine ER [Detrol LA] 4 mg PO DAILY 03/30/17 05/12/17 oxyCODONE-APAP 10-325MG [Percocet 1 tab PO QID PRN 03/30/17 05/12/17 10-325 mg] Previous Rx's Medication Instructions Recorded sitaGLIPtin PHOSPHATE [Januvia] 100 mg PO DAILY #30 tab 03/13/17 Diazepam [Valium] 2 mg PO TID PRN #10 tab 04/03/17 Fluconazole [Diflucan] 100 mg PO DAILY #6 tab 04/03/17 Lidocaine Viscous [Xylocaine 30 ml PO Q4HR PRN 10 Days #1 bottle 04/03/17 Viscous 2%] Allergies Allergy/AdvReac Type Severity Reaction Status Date / Time Anesthetics - Amide Type AdvReac Nausea & Verified 05/12/17 19:16 Vomiting & Diarrhea Anesthetics - Jonna Type- AdvReac Nausea & Verified 05/12/17 19:16 Parabens Vomiting & Diarrhea Review of Systems ROS Statement: Those systems with pertinent positive or pertinent negative responses have been documented in the HPI. ROS Other: All systems not noted in ROS Statement are negative. 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 History of Any Multi-Drug Resistant Organisms: ESBL Date of last positivie culture/infection: 04/20/17 MDRO Source:: ESBL URINE Past Surgical History: Adenoidectomy, Appendectomy, Back Surgery, Cholecystectomy, Hysterectomy, Orthopedic Surgery, Tonsillectomy Additional Past Surgical History / Comment(s): Recent abdominal mass biopsy x 2 , BMA, EGD/colonoscopy at [facility], bilateral carpal tunnel release, thyroidectomy (one tiny piece unable to remove), ORIF rt ankle, stents in LLE/ vascular stent, cervical surgery C4,C6, thyroidectomy Past Anesthesia/Blood Transfusion Reactions: Postoperative Nausea & Vomiting ( PONV) Additional Past Anesthesia/Blood Transfusion Reaction / Comment(s): blood transfusion(December 2015) "pt stated an hour after transfusion became very nauseated and had quit a bit of vomiting" Past Psychological History: No Psychological Hx Reported Smoking Status: Never smoker Past Alcohol Use History: None Reported Past Drug Use History: None Reported - Past Family History Mother Family Medical History: Diabetes Mellitus, Renal Disease Additional Family Medical History / Comment(s): Mother of kidney failure at the age of 69yrs. Father Family Medical History: Diabetes Mellitus Additional Family Medical History / Comment(s): Father of a "sugar coma" when he was 72 yrs old. Brother(s) Family Medical History: Cancer Sister(s) Family Medical History: Myocardial Infarction (ME) Additional Family Medical History / Comment(s): Patient has 3 sisters and 2 of them are diabetic. Son(s) Family Medical History: No Reported History (Patient has 4 sons no major medical problems) Additional Family Medical History / Comment(s): Patient has 4 sons with no major medical problems. Daughter(s) Family Medical History: Deep Vein Thrombosis (DVT) Additional Family Medical History / Comment(s): Patient has a daughter with DVT. General Exam Limitations: no limitations General appearance: alert, in no apparent distress Head exam: Present: atraumatic, normocephalic, normal inspection Eye exam: Present: normal appearance, PERRL, EOMI. Absent: scleral icterus, conjunctival injection, periorbital swelling ENT exam: Present: normal exam, normal oropharynx, mucous membranes moist, TM's normal bilaterally, normal external ear exam Neck exam: Present: normal inspection, full ROM. Absent: tenderness, meningismus, lymphadenopathy Respiratory exam: Present: normal lung sounds bilaterally. Absent: respiratory distress, wheezes, rales, rhonchi, stridor Cardiovascular Exam: Present: regular rate, normal rhythm, normal heart sounds. Absent: systolic murmur, diastolic murmur, rubs, gallop, clicks GI/Abdominal exam: Present: soft, normal bowel sounds. Absent: distended, tenderness, guarding, rebound, rigid Back exam: Absent: CVA tenderness (R), CVA tenderness (L) Skin exam: Present: warm, dry, intact, normal color. Absent: rash Course Vital Signs 05/12/17 05/12/17 19:03 20:28 Temperature 100.7 F H 99.3 F Pulse Rate 88 70 Respiratory 20 18 Rate Blood Pressure 110/54 114/55 O2 Sat by Pulse 99 98 Oximetry Medical Decision Making - Lab Data Result diagrams: 05/12/17 20:00 05/12/17 20:00 Lab Results 05/12/17 05/12/17 05/12/17 Range/Units 20:00 20:00 20:00 WBC 0.5 L* (3.8-10.6) k/uL RBC 2.26 L (3.80-5.40) m/uL Hgb 7.7 L (11.4-16.0) gm/dL Hct 22.6 L (34.0-46.0) % MCV 100.1 H D (80.0-100.0) fL MCH 34.1 (25.0-35.0) pg MCHC 34.0 (31.0-37.0) g/dL RDW 14.0 (11.5-15.5) % Plt Count 10 L* D (150-450) k/uL Differential Comment Manual Slide Review Performed Sodium 137 (137-145) mmol/L Potassium 3.7 (3.5-5.1) mmol/L Chloride 105 (98-107) mmol/L Carbon Dioxide 27 (22-30) mmol/L Anion Gap 5 mmol/L BUN 13 (7-17) mg/dL Creatinine 0.56 (0.52-1.04) mg/dL Est GFR (MDRD) Af Amer >60 (>60 ml/min/1.73 sqM) Est GFR (MDRD) Non-Af >60 (>60 ml/min/1.73 sqM) Glucose 214 H (74-99) mg/dL Plasma Lactic Acid Shaka 1.4 (0.7-2.0) mmol/L Calcium 8.7 (8.4-10.2) mg/dL Total Bilirubin 0.7 (0.2-1.3) mg/dL AST 20 (14-36) U/L ALT 33 (9-52) U/L Alkaline Phosphatase 100 (38-126) U/L Total Protein 4.8 L (6.3-8.2) g/dL Albumin 2.7 L (3.5-5.0) g/dL Urine Color Urine Appearance (Clear) Urine pH (5.0-8.0) Ur Specific Miranda (1.001-1.035) Urine Protein (Negative) Urine Glucose (UA) (Negative) Urine Ketones (Negative) Urine Blood (Negative) Urine Nitrite (Negative) Urine Bilirubin (Negative) Urine Urobilinogen (<2.0) mg/dL Ur Leukocyte Esterase (Negative) Influenza Type A RNA (Not Detectd) Influenza Type B (PCR) (Not Detectd) 05/12/17 05/12/17 Range/Units 20:15 20:47 WBC (3.8-10.6) k/uL RBC (3.80-5.40) m/uL Hgb (11.4-16.0) gm/dL Hct (34.0-46.0) % MCV (80.0-100.0) fL MCH (25.0-35.0) pg MCHC (31.0-37.0) g/dL RDW (11.5-15.5) % Plt Count (150-450) k/uL Differential Comment Manual Slide Review Sodium (137-145) mmol/L Potassium (3.5-5.1) mmol/L Chloride (98-107) mmol/L Carbon Dioxide (22-30) mmol/L Anion Gap mmol/L BUN (7-17) mg/dL Creatinine (0.52-1.04) mg/dL Est GFR (MDRD) Af Amer (>60 ml/min/1.73 sqM) Est GFR (MDRD) Non-Af (>60 ml/min/1.73 sqM) Glucose (74-99) mg/dL Plasma Lactic Acid Shaka (0.7-2.0) mmol/L Calcium (8.4-10.2) mg/dL Total Bilirubin (0.2-1.3) mg/dL AST (14-36) U/L ALT (9-52) U/L Alkaline Phosphatase (38-126) U/L Total Protein (6.3-8.2) g/dL Albumin (3.5-5.0) g/dL Urine Color Yellow Urine Appearance Clear (Clear) Urine pH 7.0 (5.0-8.0) Ur Specific Miranda 1.014 (1.001-1.035) Urine Protein Negative (Negative) Urine Glucose (UA) 1+ H (Negative) Urine Ketones Negative (Negative) Urine Blood Negative (Negative) Urine Nitrite Negative (Negative) Urine Bilirubin Negative (Negative) Urine Urobilinogen >12.0 (<2.0) mg/dL Ur Leukocyte Esterase Negative (Negative) Influenza Type A RNA Not Detected (Not Detectd) Influenza Type B (PCR) Not Detected (Not Detectd) Disposition Clinical Impression: Neutropenic fever, Lymphoma, Cough Disposition: ADMITTED IP TO THIS HOSP Condition: Fair Referrals: Obdulia Jasso MD [Primary Care Provider] - 1-2 days
[2017-05-12 20:18] LABS: HCT 22.6 % (34.0-46.0); HGB 7.7 gm/dL (11.4-16.0); MCH 34.1 pg (25.0-35.0); MCV 100.1 fL (80.0-100.0); Mean Platelet Volume 10.3; RBC 2.26 m/uL (3.80-5.40)
[2017-05-12 20:30] LABS: Platelet Count 10 k/uL (150-450); WBC 0.5 k/uL (3.8-10.6)
[2017-05-12 20:44] LABS: ALT 33 U/L (9-52); AST 20 U/L (14-36); Albumin 2.7 g/dL (3.5-5.0); Alkaline Phosphatase 100 U/L (38-126); Anion Gap 5 mmol/L; Blood Urea Nitrogen 13 mg/dL (7-17); Calcium 8.7 mg/dL (8.4-10.2); Carbon Dioxide 27 mmol/L (22-30); Chloride 105 mmol/L (98-107); Glucose 214 mg/dL (74-99); Potassium 3.7 mmol/L (3.5-5.1); Sodium 137 mmol/L (137-145); Total Bilirubin 0.7 mg/dL (0.2-1.3); Total Protein 4.8 g/dL (6.3-8.2)
--- NOTE | 2017-05-12 20:52 | XR ---
EXAMINATION TYPE: XR chest 2V DATE OF EXAM: 05/12/2017 COMPARISON: 03/30/2017 HISTORY: Fever TECHNIQUE: Frontal and lateral views of the chest are obtained. FINDINGS: There is no heart failure nor confluent pneumonic infiltrate. There is a left side central venous catheter with tip in the superior vena cava. Cervical spine fusion surgery is noted. There is no pleural effusion. IMPRESSION: No active cardiopulmonary disease. Normal heart. No change.
[2017-05-12 21:04] LABS: Appearance,Urine Clear (Clear); Bilirubin,Urine Negative (Negative); Blood,Urine Negative (Negative); Color,Urine Yellow; Glucose,Urine (UA) 1+ (Negative); Ketones,Urine Negative (Negative); Leukocyte Esterase,Urine Negative (Negative); Nitrite,Urine Negative (Negative); Protein,Urine Negative (Negative); Specific Gravity,Urine 1.014 (1.001-1.035); Urobilinogen,Urine >12.0 mg/dL (<2.0)
[2017-05-12] MEDS ORDERED: VANCOMYCIN IV PER PHARMACY 1 EACH MISC MISCELLANE PRN (21:24)
[2017-05-12] MEDS ORDERED: CEFEPIME 2 GM in SODIUM CHLORIDE 0.9% 50 ML IVPB STA (21:24)
[2017-05-12] MEDS ORDERED: ACETAMINOPHEN TAB 325 MG TAB PO PRN (21:30)
[2017-05-12] MEDS ORDERED: NALOXONE 0.4 MG/ML 1 ML VIAL IV PRN (21:30)
[2017-05-12] MEDS ORDERED: ONDANSETRON 4 MG/2 ML VIAL IVP PRN (21:30)
[2017-05-12] MEDS ORDERED: diphenhydrAMINE 25 MG CAP PO PRN (21:32)
[2017-05-12] MEDS ORDERED: HYDROcodone/APAP 10-325MG 1 EACH TAB PO PRN (21:32)
[2017-05-12] MEDS ORDERED: LORATADINE 10 MG TAB PO PRN (21:32)
[2017-05-12] MEDS ORDERED: LIDOCAINE VISCOUS 300 MG/15 ML CUP MUCOUS MEM PRN (22:23)
[2017-05-12 23:40] VITALS: BMI 41.5
[2017-05-13] MEDS: INSULIN DETEMIR 100 UNIT/ML 10 ML VIAL SQ SCH ×2 (00:02→20:56)
--- NOTE | 2017-05-13 00:23 | P.HPIM ---
History of Present Illness H&P Date: 05/12/17 Chief Complaint: fever and cough 56 year old female with recent diagnosis of NHL , currently on chemotherapy as outpatient just finished a course of RFCHOP 10 days ago. She reports that for the past 5 days she has been suffering from a dry hacking cough with symptoms of URI (runny nose and sore throat), she did not want to come to the hospital due to frequent recent hospitalizations, however, today she was feeling worse with some shortness of breath with worsening coughing, and fevers / generalized weakness. Therefore, she decided to come to the hospital. otherwise, she denies any phlegm , hemoptysis, changes in her bowel or urinary habits, denies any chest pain, nausea, vomiting, or abd pain. She reports compliance with the rest of her home medications. She also noted some swelling over the nail base of her left thumb few days ago, that drained bloody discharge on its own 2 days ago. currently denies any pain, tenderness, or any degree of loss of function of the left thumb. She generally feels well at time of interview but was really concerned at home due to the fevers and coughing. CXR did not show any acute changes. However, she was found to have severe neutropenia, for which she was admitted for empiric ABx and further infectious workup, blood cultures were obtained prior to starting ABx. Patient also denies any active bleeding, but has been noticing easy bruising. Review of Systems Pertinent positives as noted in HPI. 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 History of Any Multi-Drug Resistant Organisms: ESBL Date of last positivie culture/infection: 04/20/17 MDRO Source:: ESBL URINE Past Surgical History: Adenoidectomy, Appendectomy, Back Surgery, Cholecystectomy, Hysterectomy, Orthopedic Surgery, Tonsillectomy Additional Past Surgical History / Comment(s): Recent abdominal mass biopsy x 2 , BMA, EGD/colonoscopy at [facility], bilateral carpal tunnel release, thyroidectomy (one tiny piece unable to remove), ORIF rt ankle, stents in LLE/ vascular stent, cervical surgery C4,C6, thyroidectomy Past Anesthesia/Blood Transfusion Reactions: Postoperative Nausea & Vomiting ( PONV) Additional Past Anesthesia/Blood Transfusion Reaction / Comment(s): blood transfusion(December 2015) "pt stated an hour after transfusion became very nauseated and had quit a bit of vomiting" Past Psychological History: No Psychological Hx Reported Smoking Status: Never smoker Past Alcohol Use History: None Reported Past Drug Use History: None Reported - Past Family History Mother Family Medical History: Diabetes Mellitus, Renal Disease Additional Family Medical History / Comment(s): Mother of kidney failure at the age of 69yrs. Father Family Medical History: Diabetes Mellitus Additional Family Medical History / Comment(s): Father of a "sugar coma" when he was 72 yrs old. Brother(s) Family Medical History: Cancer Sister(s) Family Medical History: Myocardial Infarction ([place]) Additional Family Medical History / Comment(s): Patient has 3 sisters and 2 of them are diabetic. Son(s) Family Medical History: No Reported History (Patient has 4 sons no major medical problems) Additional Family Medical History / Comment(s): Patient has 4 sons with no major medical problems. Daughter(s) Family Medical History: Deep Vein Thrombosis (DVT) Additional Family Medical History / Comment(s): Patient has a daughter with DVT. Medications and Allergies Home Medications Medication Instructions Recorded Confirmed Type Sertraline [Zoloft] 200 mg PO HS 03/07/15 05/12/17 History Atorvastatin [Lipitor] 40 mg PO DAILY 02/10/16 05/12/17 History Lisinopril 10 mg PO DAILY 02/10/16 05/12/17 History Levothyroxine Sodium [Synthroid] 137 mcg PO DAILY 08/17/16 05/12/17 History Cranberry/Vit C 4200mg 1 tab PO DAILY PRN 12/19/16 05/12/17 History Glimepiride [Amaryl] 2 mg PO BID 12/19/16 05/12/17 History HYDROcodone/APAP 10-325MG [Fithian 1 tab PO Q4-6H PRN 12/19/16 05/12/17 History 10-325] Insulin Lispro [humaLOG Kwikpen] See Protocol SQ AC-TID PRN 03/08/17 05/12/17 History Omeprazole [PriLOSEC] 10 mg PO DAILY 03/08/17 05/12/17 History sitaGLIPtin PHOSPHATE [Januvia] 100 mg PO DAILY #30 tab 03/13/17 05/12/17 Rx Acetaminophen/Diphenhydramine 1 tab PO HS PRN 03/30/17 05/12/17 History [Tylenol PM 500-25mg] Diphenox-Atrop 2.5-0.025 mg 2 tab PO QID PRN 03/30/17 05/12/17 History [Lomotil] Insulin Aspart Protam & Aspart See Protocol SQ AC-TID PRN 03/30/17 05/12/17 History [NovoLOG MIX 70-30 Flexpen] Loratadine 10 mg PO DAILY PRN 03/30/17 05/12/17 History Tolterodine ER [Detrol LA] 4 mg PO DAILY 03/30/17 05/12/17 History oxyCODONE-APAP 10-325MG [Percocet 1 tab PO QID PRN 03/30/17 05/12/17 History 10-325 mg] Diazepam [Valium] 2 mg PO TID PRN #10 tab 04/03/17 05/12/17 Rx Fluconazole [Diflucan] 100 mg PO DAILY #6 tab 04/03/17 05/12/17 Rx Lidocaine Viscous [Xylocaine 30 ml PO Q4HR PRN 10 Days #1 bottle 04/03/17 Rx Viscous 2%] Allergies Allergy/AdvReac Type Severity Reaction Status Date / Time Anesthetics - Amide Type AdvReac Nausea & Verified 05/12/17 19:16 Vomiting & Diarrhea Anesthetics - Jonna Type- AdvReac Nausea & Verified 05/12/17 19:16 Parabens Vomiting & Diarrhea Physical Exam Vitals: Vital Signs Temp Pulse Resp BP Pulse Ox 05/12/17 22:25 98.9 F 84 18 103/53 98 05/12/17 20:28 99.3 F 70 18 114/55 98 05/12/17 19:03 100.7 F H 88 20 110/54 99 Intake and Output 1205/12/17 05/12/17 06:59 14:59 22:59 Other: Weight 113.398 kg Patient Weight 05/13/17 06:59 Weight 113.398 kg Constitutional: No acute distress, conversant, pleasant Eyes: Anicteric sclerae, moist conjunctiva, no lid-lag Pupils equal round reactive to light ENMT: NC/AT Oropharynx clear, no erythema, exudates Neck: Supple, FROM, no masses, or JVD No carotid bruits No thyromegaly Lungs: Clear to auscultation Clear to percussion Normal respiratory effort, no accessory muscle use Palpation of left anterior chest at site of Mediport reveals no tenderness to palpation no swelling , no visible skin changes no erythema no tenderness Cardiovascular: Heart regular in rate and rhythm, No murmurs, gallops, or rubs No peripheral edema Abdominal: Soft Nontender, no guarding, rebound or rigidity Abdomen moving with respiration Normoactive bowel sounds No hepatomegaly, No splenomegaly No palpable mass No abdominal wall hernia noted Skin: Normal temperature, tone, texture, turgor No induration No subcutaneous nodules No rash, lesions No ulcers Extremities: No digital cyanosis No clubbing Pedal pulses intact and symmetrical Radial pulses intact and symmetrical No calf tenderness Psychiatric: Alert and oriented to person, place and time Appropriate affect fair judgment Neuro Muscles Strength 5/5 in all 4 extremities Sensation to light touch grossly present throughout Cranial nerves II-XII grossly intact No focal sensory deficits Lymphatics: no palpable cervical or supraclavicular , or inguinal lymph nodes Results CBC & Chem 7: 05/12/17 20:00 05/12/17 20:00 Labs: Abnormal Lab Results - Last 24 Hours (Table) 05/12/17 05/12/17 05/12/17 Range/Units 20:00 20:00 20:47 WBC 0.5 L* (3.8-10.6) k/uL RBC 2.26 L (3.80-5.40) m/uL Hgb 7.7 L (11.4-16.0) gm/dL Hct 22.6 L (34.0-46.0) % MCV 100.1 H D (80.0-100.0) fL Plt Count 10 L* D (150-450) k/uL Glucose 214 H (74-99) mg/dL Total Protein 4.8 L (6.3-8.2) g/dL Albumin 2.7 L (3.5-5.0) g/dL Urine Glucose (UA) 1+ H (Negative) Assessment and Plan (1) Febrile neutropenia Narrative/Plan: blood cultures, urine cultures pending CXR unremarkable area of left mediport is unremarkable broad empiric ABx , cefepime and vanco continue diflucan follow up cultures and vital signs Current Visit: Yes Status: Acute Code(s): D70.9 - NEUTROPENIA, UNSPECIFIED; R50.81 - FEVER PRESENTING WITH CONDITIONS CLASSIFIED ELSEWHERE SNOMED Code(s) : 860797300 (2) Pancytopenia Narrative/Plan: due to her underlying cancer and chemotherapy pending Oncology recs monitro levels Current Visit: No Status: Acute Priority: Medium Code(s): D61.818 - OTHER PANCYTOPENIA SNOMED Code(s): 323283340 (3) Thrombocytopenia Narrative/Plan: severe, follow up levels avoid NSAIds and pharamcologic anticoagulation Current Visit: No Status: Acute Code(s): D69.6 - THROMBOCYTOPENIA, UNSPECIFIED SNOMED Code(s): 934482189 (4) NHL (non-Hodgkin's lymphoma) Narrative/Plan: s/p chemotherapy patient finished her prescribed outpatient chemotherapy course RFCHOP continue OP follow up and surveillance Current Visit: No Status: Chronic Code(s): C85.90 - NON-HODGKIN LYMPHOMA, UNSPECIFIED, UNSPECIFIED SITE SNOMED Code(s): 533365219 (5) Factor 5 Leiden mutation, heterozygous Current Visit: No Status: Chronic Code(s): D68.51 - ACTIVATED PROTEIN C RESISTANCE SNOMED Code(s): 408300978 (6) History of DVT (deep vein thrombosis) Narrative/Plan: patient on xarelto hold now due to severe thrombocytopenia Current Visit: Yes Status: Chronic Code(s): Z86.718 - PERSONAL HISTORY OF OTHER VENOUS THROMBOSIS AND EMBOLISM SNOMED Code(s): 100814647 (7) DVT prophylaxis Narrative/Plan: mechanical due to severe thrombocytopenia Current Visit: Yes Status: Acute Code(s): SJO0830 - SNOMED Code(s): 178632712 (8) VINH (obstructive sleep apnea) Narrative/Plan: patient is not currently using positive airaway pressure therapy at home due to intolerance of the mask Current Visit: No Status: Acute Code(s): G47.33 - OBSTRUCTIVE SLEEP APNEA ( ADULT) (PEDIATRIC) SNOMED Code(s): 11069453 (9) Diabetes mellitus Narrative/Plan: switched to long acting insulin and insulin sliding scale while inpatient Current Visit: No Status: Chronic Code(s): E11.9 - TYPE 2 DIABETES MELLITUS WITHOUT COMPLICATIONS SNOMED Code(s): 45274096 (10) Morbid obesity Narrative/Plan: counseled regarding life style modification and weight loss Current Visit: No Status: Chronic Code(s): E66.01 - MORBID (SEVERE) OBESITY DUE TO EXCESS CALORIES SNOMED Code(s): 522166261 Plan: Preformed a thorough record review from recent multiple hospitalization Surrogate decision-maker: daughter Meghan CODE STATUS:Full code DVT prophylaxis: mechanical Discussed with: Patient, ER, RN Anticipated discharge: 48-[address]: home
[2017-05-13] MEDS ORDERED: VANCOMYCIN 1,750 MG in SODIUM CHLORIDE 0.9% 250 ML IVPB SCH (01:00)
[2017-05-13] MEDS: SODIUM CHLORIDE 0.9% 1,000 ML IV SCH ×2 (05:53→17:42)
[2017-05-13] MEDS: LEVOTHYROXINE 137 MCG TAB PO SCH (05:53)
[2017-05-13 07:38] LABS: Glucose,Whole Blood 185 mg/dL (75-99)
[2017-05-13] MEDS: INSULIN ASPART 100 UNIT/ML 1 ML 10 ML VIAL SQ SCH ×4 (08:42→20:57)
[2017-05-13] MEDS: ATORVASTATIN 40 MG TAB PO SCH (08:43)
[2017-05-13] MEDS: FLUCONAZOLE 100 MG TAB PO SCH (08:43)
[2017-05-13] MEDS: LISINOPRIL 10 MG TAB PO SCH (08:44)
[2017-05-13] MEDS: LINAGLIPTIN 5 MG TABLET PO SCH (08:44)
[2017-05-13] MEDS: PANTOPRAZOLE 40 MG TABLET PO SCH (08:44)
[2017-05-13] MEDS: OXYBUTYNIN XL 5 MG TAB.ER.24 PO SCH (08:44)
[2017-05-13] MEDS ORDERED: GLIMEPIRIDE 2 MG TAB PO SCH (09:00)
--- NOTE | 2017-05-13 09:31 | P.PN ---
Subjective Progress Note Date: 05/13/17 Principal diagnosis: febrile neutropenia Patient says she feels weak and ill. No chills. She says she had been having fevers for the past 2 days. Her last chemo was on the . Objective - Vital Signs Vital signs: Vital Signs Temp 98.3 F 05/13/17 07:00 Pulse 83 05/13/17 07:00 Resp 16 05/13/17 07:00 BP 122/71 05/13/17 07:00 Pulse Ox 94 L 05/13/17 07:00 Intake & Output 05/12/17 05/13/17 05/13/17 18:59 06:59 18:59 Intake Total 650 Balance 650 Weight 113.398 kg Intake: Intake, IV Titration 650 Amount Sodium Chloride 0.9% 1, 400 000 ml @ 100 mls/hr IV . Q10H [facility] Rx#:[id number] Vancomycin 1,750 mg In 250 Sodium Chloride 0.9% 250 ml @ 125 mls/hr IVPB Q12H [facility] Rx#:[id number] Other: Voiding Method Toilet # Voids 2 - Exam gen:alert and oriented lungs:clear to auscultation heart:s1s2 abdomen:soft and depressible,non tender ext:no edema - Labs CBC & Chem 7: 05/12/17 20:00 05/12/17 20:00 Labs: Abnormal Lab Results - Last 24 Hours (Table) 05/12/17 05/12/17 05/12/17 Range/Units 20:00 20:00 20:47 WBC 0.5 L* (3.8-10.6) k/uL RBC 2.26 L (3.80-5.40) m/uL Hgb 7.7 L (11.4-16.0) gm/dL Hct 22.6 L (34.0-46.0) % MCV 100.1 H D (80.0-100.0) fL Plt Count 10 L* D (150-450) k/uL Glucose 214 H (74-99) mg/dL POC Glucose (mg/dL) (75-99) mg/dL Total Protein 4.8 L (6.3-8.2) g/dL Albumin 2.7 L (3.5-5.0) g/dL Urine Glucose (UA) 1+ H (Negative) 05/13/17 Range/Units 07:37 WBC (3.8-10.6) k/uL RBC (3.80-5.40) m/uL Hgb (11.4-16.0) gm/dL Hct (34.0-46.0) % MCV (80.0-100.0) fL Plt Count (150-450) k/uL Glucose (74-99) mg/dL POC Glucose (mg/dL) 185 H (75-99) mg/dL Total Protein (6.3-8.2) g/dL Albumin (3.5-5.0) g/dL Urine Glucose (UA) (Negative) Assessment and Plan (1) Febrile neutropenia Current Visit: Yes Status: Acute Code(s): D70.9 - NEUTROPENIA, UNSPECIFIED; R50.81 - FEVER PRESENTING WITH CONDITIONS CLASSIFIED ELSEWHERE SNOMED Code(s) : 155658232 (2) Diabetes Current Visit: No Status: Acute Code(s): E11.9 - TYPE 2 DIABETES MELLITUS WITHOUT COMPLICATIONS SNOMED Code(s): 83663243 (3) Pancytopenia Current Visit: No Status: Acute Priority: Medium Code(s): D61.818 - OTHER PANCYTOPENIA SNOMED Code(s): 104009654 (4) NHL (non-Hodgkin's lymphoma) Current Visit: No Status: Chronic Code(s): C85.90 - NON-HODGKIN LYMPHOMA, UNSPECIFIED, UNSPECIFIED SITE SNOMED Code(s): 028943496 (5) Hypothyroidism Narrative/Plan: continue synthroid Current Visit: Yes Status: Acute Code(s): E03.9 - HYPOTHYROIDISM, UNSPECIFIED SNOMED Code(s): 49999572 (6) Hypertension Narrative/Plan: on lisnopril controlled Current Visit: Yes Status: Acute Code(s): I10 - ESSENTIAL (PRIMARY) HYPERTENSION SNOMED Code(s): 89940344 (7) Hyperlipidemia Narrative/Plan: on lipitor Current Visit: No Status: Acute Code(s): E78.5 - HYPERLIPIDEMIA, UNSPECIFIED SNOMED Code(s): 34238174
[2017-05-13] MEDS: CEFEPIME 2 GM in SODIUM CHLORIDE 0.9% 50 ML IVPB SCH ×3 (10:46→23:59)
[2017-05-13] MEDS: VANCOMYCIN 1,750 MG in SODIUM CHLORIDE 0.9% 250 ML IVPB SCH ×2 (11:17→20:56)
[2017-05-13 12:20] LABS: Glucose,Whole Blood 162 mg/dL (75-99)
[2017-05-13] MEDS: BENZOCAINE/MENTHOL LOZENG 1 EACH LOZENGE MUCOUS MEM PRN ×2 (16:51→20:59)
[2017-05-13 17:39] LABS: Glucose,Whole Blood 144 mg/dL (75-99)
[2017-05-13 20:26] LABS: Glucose,Whole Blood 209 mg/dL (75-99)
[2017-05-13] MEDS: SERTRALINE 100 MG TAB PO SCH (20:58)
[2017-05-14] MEDS: oxyCODONE-APAP 10-325MG 1 EACH TAB PO PRN ×2 (00:05→22:10)
[2017-05-14] MEDS: SODIUM CHLORIDE 0.9% 1,000 ML IV SCH ×4 (03:02→23:28)
[2017-05-14] MEDS: LEVOTHYROXINE 137 MCG TAB PO SCH (06:10)
[2017-05-14 07:24] LABS: Glucose,Whole Blood 106 mg/dL (75-99)
[2017-05-14] MEDS: CEFEPIME 2 GM in SODIUM CHLORIDE 0.9% 50 ML IVPB SCH ×3 (07:55→23:28)
[2017-05-14] MEDS: LINAGLIPTIN 5 MG TABLET PO SCH (07:56)
[2017-05-14] MEDS: PANTOPRAZOLE 40 MG TABLET PO SCH (07:56)
[2017-05-14] MEDS: ATORVASTATIN 40 MG TAB PO SCH (07:56)
[2017-05-14] MEDS: OXYBUTYNIN XL 5 MG TAB.ER.24 PO SCH (07:56)
[2017-05-14] MEDS: FLUCONAZOLE 100 MG TAB PO SCH (07:56)
[2017-05-14] MEDS: LISINOPRIL 10 MG TAB PO SCH (07:56)
[2017-05-14] MEDS: INSULIN ASPART 100 UNIT/ML 1 ML 10 ML VIAL SQ SCH ×4 (07:57→20:40)
[2017-05-14] MEDS: VANCOMYCIN 1,750 MG in SODIUM CHLORIDE 0.9% 250 ML IVPB SCH ×2 (08:41→20:40)
--- NOTE | 2017-05-14 09:27 | CONS ---
CONSULTATION DATE OF SERVICE: May 13, 2017. REASON FOR CONSULTATION: Lymphoma. REASON FOR ADMISSION: Fever and dyspnea. Nidhi is a very pleasant 56-year-old lady, very well known to our practice. She came into the emergency department yesterday because she has not been feeling well for about 2 days, was feeling very tired and also she became short of breath and she was running a fever. In the emergency department was found to be severely pancytopenic and neutropenic, so her chest x-ray did not reveal any acute changes. However, cultures were obtained and started on broad-spectrum antibiotics and ended up being admitted to the hospital. The patient is known to our practice. She has been under the care of Dr. Balderrama. She was initially diagnosed was follicular lymphoma in October of 2016 when she was found to have large abdominal and retroperitoneal masses. She had a biopsy of the mesenteric mass in December of 2016 revealing grade 2 follicular lymphoma. Further staging workup revealed extensive involvement above and below diaphragm and with suspicious liver lesions and staged at stage IVB disease. The patient was started on systemic chemotherapy with utilization of R-CHOP regimen and she has completed a total of 6 cycles on May 02, 2017. She had she has had poor tolerance to treatment with recurrent neutropenic fever and pancytopenia. She did have a followup PET scan alf through her planned 6 cycles of treatment, which revealed significant improvement in her disease. The patient as stated feels tired. She has some difficulty swallowing food. She has cough, mostly dry, fever and some chills at home. No nausea or vomiting. No diarrhea. No radiating symptoms. No melena, hematochezia, hematuria, hemoptysis, hematemesis or epistaxis. Her weight has been relatively stable. PAST MEDICAL HISTORY: Significant for in addition to what is stated above in regard to her lymphoma, she has a history of diabetes, deep venous thrombosis lower extremity, hypertension, hyperlipidemia, sleep apnea, factor V Leiden mutation, hypothyroidism. She had appendectomy in the past. Adenoidectomy, cholecystectomy, tonsillectomy, carpal tunnel surgery, hysterectomy, MediPort placement, multiple stent placements, thyroidectomy, and ORIF of the right ankle. ALLERGIES: There is no known drug allergies. FAMILY HISTORY: Positive for bleeding disorder. Her father had diabetes and hypertension. Her mother had kidney disease. Her brother had prostate cancer. Two sisters have diabetes. Her daughter has deep venous thrombosis. SOCIAL HISTORY: No history of smoking or alcohol abuse or substance abuse. REVIEW OF SYSTEMS: As stated above in the history of present illness. CURRENT MEDICATION: Include Tylenol 650 every 6 hours as needed, Lipitor 40 mg daily, Cepacol lozenges as needed, cefepime 2 g IV piggyback q.8 hours, Benadryl as needed, Diflucan 100 mg daily, NovoLog sliding scale. Levemir 10 units subcu q.h.s., Synthroid 137 mcg daily, Tradjenta 5 mg daily, Zestril 10 mg daily. Claritin 10 mg daily, Zofran 4 mg IV every 8 hours as needed. Ditropan 5 mg p.o. daily. Percocet 10/325 q.i.d. as needed, Protonix 40 mg IV daily. Zoloft 200 mg at bedtime. She is on IV fluids 100 mL/h of normal saline. She is on IV vancomycin per pharmacy dosing. Review of systems as stated above in history of present illness. PHYSICAL EXAMINATION: She is alert, oriented x3. She does not appear to be in acute distress at this point in time. Her vital signs are temperature is 98.3, afebrile. Pulse is 83, regular, respirations 16, blood pressure 122/71. HEENT: Normocephalic, atraumatic. There is no obvious icterus. NECK: Supple. No jugular venous distention. Chest equal expansion bilaterally. Clear to auscultation and percussion. Heart is regular rhythm. ABDOMEN: Soft. No apparent organomegaly or masses. Bowel sounds present. Extremities revealed no edema. SKIN: A few bruises. No ecchymosis or petechiae. LYMPHATICS: No peripheral cervical supraclavicular node. MUSCULOSKELETAL: Moving all extremities appropriately. No percussion tenderness. LABORATORY DATA: WBC 0.5, hemoglobin 7.7, hematocrit 22.7, platelets are 10. Sodium 137, potassium 3.7, chloride 105, CO2 is 26, BUN is 30, creatinine 0.56. Her urinalysis was unremarkable. Her blood cultures so far are unremarkable. IMPRESSION: 1. Neutropenic fever. The patient appears to be clinically stable at this point in time. 2. Severe chemotherapy-induced myelosuppression. 3. Stage IVB follicular lymphoma with diagnostic and therapeutic circumstances stated above. The patient completed the planned 6 cycles of chemotherapy on 05/02/2017 and she did receive Neulasta on 05/03/2017 in the outpatient setting. 4. Multiple other comorbidities as stated above. RECOMMENDATION: 1. Continue broad-spectrum antibiotics until culture results are available. 2. No need for additional growth factor support. She already received Neulasta in the outpatient setting and expect her neutrophils to start to improve over the next 24- 48 hours. 3. Hold off DVT prophylaxis in view of significant thrombocytopenia. 4. Continue to monitor blood count very closely. The above was discussed in details with the patient. I have answered all questions. Thank you very much for asking me to participate in the care of this nice lady. MMODL / IJN: [id number] /
[2017-05-14 11:37] LABS: Glucose,Whole Blood 173 mg/dL (75-99)
[2017-05-14 11:53] LABS: HCT 21.3 % (34.0-46.0); MCH 33.6 pg (25.0-35.0); MCHC 32.6 g/dL (31.0-37.0); MCV 102.9 fL (80.0-100.0); Macrocytosis Slight; Mean Platelet Volume 13.1; RBC 2.07 m/uL (3.80-5.40); RDW 15.2 % (11.5-15.5)
[2017-05-14 11:56] LABS: Platelet Count 12 k/uL (150-450); WBC 1.1 k/uL (3.8-10.6)
[2017-05-14 12:26] LABS: ALT 44 U/L (9-52); AST 22 U/L (14-36); Albumin 2.4 g/dL (3.5-5.0); Alkaline Phosphatase 105 U/L (38-126); Anion Gap 2 mmol/L; Blood Urea Nitrogen 7 mg/dL (7-17); Calcium 8.4 mg/dL (8.4-10.2); Carbon Dioxide 28 mmol/L (22-30); Chloride 108 mmol/L (98-107); Glucose 159 mg/dL (74-99); Magnesium 1.7 mg/dL (1.6-2.3); Phosphorus 3.5 mg/dL (2.5-4.5); Polychromasia Present; Potassium 3.7 mmol/L (3.5-5.1); Sodium 138 mmol/L (137-145); Total Bilirubin 0.7 mg/dL (0.2-1.3); Total Protein 4.4 g/dL (6.3-8.2)
[2017-05-14 13:13] LABS: Eosinophils # (M) 0.06 k/uL (0-0.7); Lymphocytes # (M) 0.23 k/uL (1.0-4.8); Neutrophils # (M) 0.62 k/uL (1.3-7.7); Neutrophils % (M) 56 %; Nucleated Red Blood Cells 0 /100 WBC (0-0); Total Cells Counted 100
[2017-05-14 13:14] LABS: Toxic Granulation Present
--- NOTE | 2017-05-14 13:30 | P.PN ---
Subjective Progress Note Date: 05/14/17 Principal diagnosis: Neutropenic fever Patient is feeling weak, her energy is down especially when she tries to ambulate. No significant shortness of breath or chest pain. Throat is sore. Objective - Vital Signs Vital signs: Vital Signs Temp 98 F 05/14/17 07:00 Pulse 69 05/14/17 07:00 Resp 20 05/14/17 07:00 BP 103/63 05/14/17 07:00 Pulse Ox 98 05/14/17 07:00 Intake & Output 05/13/17 05/14/17 05/14/17 18:59 06:59 18:59 Intake Total 300 1250 2000 Balance 300 1250 2000 Intake: IV 1250 1200 Cefepime 2 gm In Sodium 50 Chloride 0.9% 50 ml @ 100 mls/hr IVPB Q8HR [facility] Rx# :[id number] Sodium Chloride 0.9% 1, 950 1200 000 ml @ 100 mls/hr IV . Q10H [facility] Rx#:[id number] Vancomycin 1,750 mg In 250 Sodium Chloride 0.9% 250 ml @ 125 mls/hr IVPB Q12H [facility] Rx#:[id number] Intake, IV Titration 300 350 Amount Cefepime 2 gm In Sodium 50 Chloride 0.9% 50 ml @ 100 mls/hr IVPB [facility] Rx# :[id number] Cefepime 2 gm In Sodium 100 Chloride 0.9% 50 ml @ 100 mls/hr IVPB Q8HR [facility] Rx# :[id number] Vancomycin 1,750 mg In 250 250 Sodium Chloride 0.9% 250 ml @ 125 mls/hr IVPB Q12HR [facility] Rx#:[id number] Oral 450 Other: Voiding Method Toilet # Voids 4 - Exam Constitutional: No acute distress, conversant, pleasant Eyes:Anicteric sclerae, pale conjunctiva, no lid-lag, PERRLA, ENMT: Oropharynx clear, no erythema, exudates Neck: Supple, FROM, no masses, or JVD, No carotid bruits, No thyromegaly Lungs: Clear to auscultation, Clear to percussion, Normal respiratory effort, no accessory muscle use Cardiovascular: Heart regular in rate and rhythm, No murmurs, gallops, or rubs, No peripheral edema Abdominal: Soft, obese, nontender, no guarding, rebound or rigidity, Normoactive bowel sounds, No hepatomegaly, No splenomegaly, No palpable mass Skin: Normal temperature, tone, texture, turgor, no induration, No subcutaneous nodules, No rash, lesions, No ulcers Extremities: No digital cyanosis, No clubbing, Pedal pulses intact and symmetrical, Radial pulses intact and symmetrical, No calf tenderness Psychiatric: Alert and oriented to person, place and time, appropriate affect, intact judgement Neuro: Muscles Strength 5/5 in all 4 extremities, Sensation to light touch grossly present throughout, Cranial nerves II-XII grossly intact, no focal sensory deficits - Labs CBC & Chem 7: 05/14/17 11:42 05/14/17 11:42 Labs: Abnormal Lab Results - Last 24 Hours (Table) 05/13/17 05/13/17 05/14/17 Range/Units 17:37 20:14 07:03 WBC (3.8-10.6) k/uL RBC (3.80-5.40) m/uL Hgb (11.4-16.0) gm/dL Hct (34.0-46.0) % MCV (80.0-100.0) fL Plt Count (150-450) k/uL Neutrophils # (Manual) (1.3-7.7) k/uL Lymphocytes # (Manual) (1.0-4.8) k/uL Chloride (98-107) mmol/L Glucose (74-99) mg/dL POC Glucose (mg/dL) 144 H 209 H 106 H (75-99) mg/dL Total Protein (6.3-8.2) g/dL Albumin (3.5-5.0) g/dL 05/14/17 05/14/17 05/14/17 Range/Units 11:35 11:42 11:42 WBC 1.1 L* (3.8-10.6) k/uL RBC 2.07 L (3.80-5.40) m/uL Hgb 7.0 L* (11.4-16.0) gm/dL Hct 21.3 L (34.0-46.0) % MCV 102.9 H (80.0-100.0) fL Plt Count 12 L* (150-450) k/uL Neutrophils # (Manual) 0.62 L (1.3-7.7) k/uL Lymphocytes # (Manual) 0.23 L (1.0-4.8) k/uL Chloride 108 H (98-107) mmol/L Glucose 159 H (74-99) mg/dL POC Glucose (mg/dL) 173 H (75-99) mg/dL Total Protein 4.4 L (6.3-8.2) g/dL Albumin 2.4 L (3.5-5.0) g/dL Microbiology - Last 24 Hours (Table) 05/12/17 20:47 Urine Culture - Preliminary Urine,Voided Gram Neg Bacilli 05/12/17 20:00 Blood Culture - Preliminary Blood No Growth after 24 hours Assessment and Plan Plan: (1) Febrile neutropenia Blood cultures negative Urine cultures growing gram negative bacilli Continue broad empiric ABx , cefepime and vanco Discontinue diflucan WBC improving. No recurrent fever. (2) Pancytopenia Due to her underlying cancer and chemotherapy monitro levels daily D/W oncology, will transfuse PRBCs if Hgb<7 (4) NHL (non-Hodgkin's lymphoma) s/p chemotherapy continue OP follow up and surveillance (5) Factor 5 Leiden mutation, heterozygous/History of DVT (deep vein thrombosis) Holding xarelto due to severe thrombocytopenia (6) DVT prophylaxis SCDs, No AC due to severe thrombocytopenia (7) VINH (obstructive sleep apnea) patient is not currently using positive airaway pressure therapy at home due to intolerance of the mask (9) Diabetes mellitus Continue long acting insulin and insulin sliding scale while inpatient (10) Morbid obesity counseled regarding life style modification and weight loss
[2017-05-14] MEDS: BENZOCAINE/MENTHOL LOZENG 1 EACH LOZENGE MUCOUS MEM PRN (16:48)
[2017-05-14 17:13] LABS: Glucose,Whole Blood 180 mg/dL (75-99)
[2017-05-14 20:04] LABS: Glucose,Whole Blood 199 mg/dL (75-99)
[2017-05-14] MEDS: SERTRALINE 100 MG TAB PO SCH (20:41)
[2017-05-14] MEDS: INSULIN DETEMIR 100 UNIT/ML 10 ML VIAL SQ SCH (20:41)
[2017-05-15] MEDS: LEVOTHYROXINE 137 MCG TAB PO SCH (06:15)
[2017-05-15 07:38] LABS: Glucose,Whole Blood 142 mg/dL (75-99)
[2017-05-15] MEDS: OXYBUTYNIN XL 5 MG TAB.ER.24 PO SCH (07:49)
[2017-05-15] MEDS: PANTOPRAZOLE 40 MG TABLET PO SCH (07:49)
[2017-05-15] MEDS: ATORVASTATIN 40 MG TAB PO SCH (07:49)
[2017-05-15] MEDS: LINAGLIPTIN 5 MG TABLET PO SCH (07:49)
[2017-05-15] MEDS: LISINOPRIL 10 MG TAB PO SCH (07:49)
[2017-05-15] MEDS: INSULIN ASPART 100 UNIT/ML 1 ML 10 ML VIAL SQ SCH ×4 (07:50→20:41)
[2017-05-15] MEDS: CEFEPIME 2 GM in SODIUM CHLORIDE 0.9% 50 ML IVPB SCH ×2 (07:50→16:51)
[2017-05-15] MEDS ORDERED: VANCOMYCIN TROUGH DUE 1 EACH MISC MISCELLANE ONE (08:00)
[2017-05-15 08:59] LABS: HCT 22.5 % (34.0-46.0); HGB 7.6 gm/dL (11.4-16.0); MCH 34.5 pg (25.0-35.0); MCHC 33.8 g/dL (31.0-37.0); MCV 101.9 fL (80.0-100.0); Macrocytosis Slight; Mean Platelet Volume 9.2; RBC 2.21 m/uL (3.80-5.40); RDW 14.6 % (11.5-15.5)
[2017-05-15 09:02] LABS: Platelet Count 23 k/uL (150-450); WBC 1.7 k/uL (3.8-10.6)
[2017-05-15] MEDS: VANCOMYCIN 1,750 MG in SODIUM CHLORIDE 0.9% 250 ML IVPB SCH (09:08)
[2017-05-15 09:28] LABS: ALT 47 U/L (9-52); AST 24 U/L (14-36); Albumin 2.6 g/dL (3.5-5.0); Alkaline Phosphatase 119 U/L (38-126); Anion Gap 4 mmol/L; Blood Urea Nitrogen 7 mg/dL (7-17); Calcium 8.8 mg/dL (8.4-10.2); Carbon Dioxide 28 mmol/L (22-30); Chloride 108 mmol/L (98-107); Glucose 149 mg/dL (74-99); Magnesium 1.7 mg/dL (1.6-2.3); Phosphorus 3.9 mg/dL (2.5-4.5); Sodium 140 mmol/L (137-145); Total Bilirubin 0.5 mg/dL (0.2-1.3); Total Protein 4.7 g/dL (6.3-8.2)
[2017-05-15 10:51] LABS: Eosinophils # (M) 0.03 k/uL (0-0.7); Lymphocytes # (M) 0.46 k/uL (1.0-4.8); Monocytes # (M) 0.31 k/uL (0-1.0); Neutrophils % (M) 53 %; Nucleated Red Blood Cells 0 /100 WBC (0-0); Poikilocytosis (M) Present; Total Cells Counted 100
[2017-05-15 11:45] LABS: Glucose,Whole Blood 257 mg/dL (75-99)
--- NOTE | 2017-05-15 12:12 | P.PN ---
Subjective Progress Note Date: 05/15/17 Principal diagnosis: Neutropenic fever Patient is feeling exhausted, she is able to get up from the bed to the bathroom back and forth. No significant shortness of breath or chest pain. Throat is sore. Objective - Vital Signs Vital signs: Vital Signs Temp 98.5 F 05/15/17 07:00 Pulse 72 05/15/17 07:00 Resp 16 05/15/17 07:00 BP 125/71 05/15/17 07:00 Pulse Ox 98 05/15/17 07:00 Intake & Output 05/14/17 05/15/17 05/15/17 18:59 06:59 18:59 Intake Total 1999 Balance 1999 Weight 113.398 kg Intake: IV 1200 Sodium Chloride 0.9% 1, 1200 000 ml @ 100 mls/hr IV . Q10H BETTE Rx#:[id number] Intake, IV Titration 350 Amount Cefepime 2 gm In Sodium 100 Chloride 0.9% 50 ml @ 100 mls/hr IVPB Q8HR BETTE Rx# :[id number] Vancomycin 1,750 mg In 250 Sodium Chloride 0.9% 250 ml @ 125 mls/hr IVPB Q12HR BETTE Rx#:[id number] Oral 450 Other: Voiding Method Toilet Toilet # Voids 4 2 - Exam Constitutional: No acute distress, conversant, pleasant Eyes:Anicteric sclerae, pale conjunctiva, no lid-lag, PERRLA, ENMT: Oropharynx clear, no erythema, exudates Neck: Supple, FROM, no masses, or JVD, No carotid bruits, No thyromegaly Lungs: Clear to auscultation, Clear to percussion, Normal respiratory effort, no accessory muscle use Cardiovascular: Heart regular in rate and rhythm, No murmurs, gallops, or rubs, No peripheral edema Abdominal: Soft, obese, nontender, no guarding, rebound or rigidity, Normoactive bowel sounds, No hepatomegaly, No splenomegaly, No palpable mass Skin: Normal temperature, tone, texture, turgor, no induration, No subcutaneous nodules, No rash, lesions, No ulcers Extremities: No digital cyanosis, No clubbing, Pedal pulses intact and symmetrical, Radial pulses intact and symmetrical, No calf tenderness Psychiatric: Alert and oriented to person, place and time, appropriate affect, intact judgement Neuro: Muscles Strength 5/5 in all 4 extremities, Sensation to light touch grossly present throughout, Cranial nerves II-XII grossly intact, no focal sensory deficits - Labs CBC & Chem 7: 05/15/17 08:14 05/15/17 08:14 Labs: Abnormal Lab Results - Last 24 Hours (Table) 05/14/17 05/14/17 05/14/17 Range/Units 11:42 11:42 17:11 WBC (3.8-10.6) k/uL RBC (3.80-5.40) m/uL Hgb (11.4-16.0) gm/dL Hct (34.0-46.0) % MCV (80.0-100.0) fL Plt Count (150-450) k/uL Neutrophils # (Manual) 0.62 L (1.3-7.7) k/uL Lymphocytes # (Manual) 0.23 L (1.0-4.8) k/uL Chloride 108 H (98-107) mmol/L Glucose 159 H (74-99) mg/dL POC Glucose (mg/dL) 180 H (75-99) mg/dL Total Protein 4.4 L (6.3-8.2) g/dL Albumin 2.4 L (3.5-5.0) g/dL 05/14/17 05/15/17 05/15/17 Range/Units 19:59 07:36 08:14 WBC 1.7 L* (3.8-10.6) k/uL RBC 2.21 L (3.80-5.40) m/uL Hgb 7.6 L (11.4-16.0) gm/dL Hct 22.5 L (34.0-46.0) % MCV 101.9 H (80.0-100.0) fL Plt Count 23 L* D (150-450) k/uL Neutrophils # (Manual) 0.90 L (1.3-7.7) k/uL Lymphocytes # (Manual) 0.46 L (1.0-4.8) k/uL Chloride (98-107) mmol/L Glucose (74-99) mg/dL POC Glucose (mg/dL) 199 H 142 H (75-99) mg/dL Total Protein (6.3-8.2) g/dL Albumin (3.5-5.0) g/dL 05/15/17 05/15/17 Range/Units 08:14 11:43 WBC (3.8-10.6) k/uL RBC (3.80-5.40) m/uL Hgb (11.4-16.0) gm/dL Hct (34.0-46.0) % MCV (80.0-100.0) fL Plt Count (150-450) k/uL Neutrophils # (Manual) (1.3-7.7) k/uL Lymphocytes # (Manual) (1.0-4.8) k/uL Chloride 108 H (98-107) mmol/L Glucose 149 H (74-99) mg/dL POC Glucose (mg/dL) 257 H (75-99) mg/dL Total Protein 4.7 L (6.3-8.2) g/dL Albumin 2.6 L (3.5-5.0) g/dL Microbiology - Last 24 Hours (Table) 05/12/17 20:00 Blood Culture - Preliminary Blood No Growth after 48 hours 05/12/17 20:47 Urine Culture - Preliminary Urine,Voided Gram Neg Bacilli Assessment and Plan Plan: (1) Febrile neutropenia Blood cultures negative Urine cultures growing gram negative bacilli Continue cefepime D/C vanco as her fevers resolved. WBC improving. (2) Pancytopenia Due to her underlying cancer and chemotherapy Improving monitro levels daily (4) NHL (non-Hodgkin's lymphoma) s/p chemotherapy Continue OP follow up and surveillance with oncology (5) Factor 5 Leiden mutation, heterozygous/History of DVT (deep vein thrombosis) Holding xarelto due to severe thrombocytopenia (6) DVT prophylaxis SCDs, No AC due to severe thrombocytopenia (7) VINH (obstructive sleep apnea) patient is not currently using positive airaway pressure therapy at home due to intolerance of the mask (9) Diabetes mellitus BS uncontrolled Increase long acting insulin 10-->15 units daily Continue insulin sliding scale while inpatient
[2017-05-15] MEDS: SODIUM CHLORIDE 0.9% 1,000 ML IV SCH (13:11)
[2017-05-15] MEDS: BENZOCAINE/MENTHOL LOZENG 1 EACH LOZENGE MUCOUS MEM PRN (15:03)
[2017-05-15 17:20] LABS: Glucose,Whole Blood 139 mg/dL (75-99)
[2017-05-15] MEDS: MEROPENEM 1 GM in SODIUM CHLORIDE 0.9% 100 ML IVPB SCH (18:22)
[2017-05-15 20:01] LABS: Glucose,Whole Blood 211 mg/dL (75-99)
[2017-05-15] MEDS: INSULIN DETEMIR 100 UNIT/ML 10 ML VIAL SQ SCH (20:41)
[2017-05-15] MEDS: SERTRALINE 100 MG TAB PO SCH (20:42)
[2017-05-15] MEDS: CHLORPHEN-HYDROcod 8-10mg/5ml 5 ML ORAL.SYRG PO SCH (21:30)
[2017-05-15] MEDS: valACYclovir HCL 1,000 MG TABLET PO SCH (21:31)
--- NOTE | 2017-05-15 23:01 | P.CONS ---
History of Present Illness - Reason for Consult Consult date: 05/15/17 - Chief Complaint Febrile neutropenia - History of Present Illness 56-year-old female has obesity was having difficulties earlier this year with ongoing pain in her upper abdomen and lower chest. She was out for a while to have pleurisy. However imaging studies were markedly abnormal. She was referred to [facility] where she underwent her interventions which revealed evidence of her non-Hodgkin's lymphoma in the mesentery and her liver. She's now received further courses of rCHOP therapy. Receiving Neulasta also. She has had neutropenia consistently with her treatments. Now again presents acutely ill with fever and neutropenia. Feeling very poorly. She was having fever with chills and significant generalized weakness and shortness of breath. Upon presentation evidence of significant pancytopenia and febrile neutropenia. Constantly infectious diseases consultation was requested. Patient has had a recent urine culture with an ESBL. Review of Systems Patient feels very poorly with fever chills rigors sweats all feeling somewhat better today though HEENT:Denies headache or acute visual change. Denies sinus or mouth discomforts. Denies neck stiffness or pain. Denies significant oral cavity pain. Denies difficulty on swallowing. Lungs: Denies significant shortness of breath, cough, sputum production, or hemoptysis. Cardiovascular: Denies significant shortness of breath, chest pain, chest wall pain, orthopnea, dyspnea on exertion, syncope Gastrointestinal: At Admission she had some nausea and some emesis and some loose stool which is now improved since admission she was also was noted having some generalized abdominal pain. Musculoskeletal: denies significant myalgias or arthralgias. No new joint swelling. Denies new back pain. Skin: Denies new rash or lesions. No new ulcers or wounds are related.. Neuro: Denies headache or visual change. Denies any new onset weakness or difficulty with ambulation. Denies falls or seizures. 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 History of Any Multi-Drug Resistant Organisms: ESBL Year Discovered:: 05/12/17 MDRO Source:: ESBL URINE Past Surgical History: Adenoidectomy, Appendectomy, Back Surgery, Cholecystectomy, Hysterectomy, Orthopedic Surgery, Tonsillectomy Additional Past Surgical History / Comment(s): Recent abdominal mass biopsy x 2 , BMA, EGD/colonoscopy at [facility], bilateral carpal tunnel release, thyroidectomy (one tiny piece unable to remove), ORIF rt ankle, stents in LLE/ vascular stent, cervical surgery C4,C6, thyroidectomy Past Anesthesia/Blood Transfusion Reactions: Postoperative Nausea & Vomiting ( PONV) Additional Past Anesthesia/Blood Transfusion Reaction / Comm: blood transfusion( December 2015) "pt stated an hour after transfusion became very nauseated and had quit a bit of vomiting" Past Psychological History: No Psychological Hx Reported Smoking Status: Never smoker Past Alcohol Use History: None Reported Past Drug Use History: None Reported - Past Family History Mother Family Medical History: Diabetes Mellitus, Renal Disease Additional Family Medical History / Comment(s): Mother of kidney failure at the age of 69yrs. Father Family Medical History: Diabetes Mellitus Additional Family Medical History / Comment(s): Father of a "sugar coma" when he was 72 yrs old. Brother(s) Family Medical History: Cancer Sister(s) Family Medical History: Myocardial Infarction ([place]) Additional Family Medical History / Comment(s): Patient has 3 sisters and 2 of them are diabetic. Son(s) Family Medical History: No Reported History (Patient has 4 sons no major medical problems) Additional Family Medical History / Comment(s): Patient has 4 sons with no major medical problems. Daughter(s) Family Medical History: Deep Vein Thrombosis (DVT) Additional Family Medical History / Comment(s): Patient has a daughter with DVT. Medications and Allergies Home Medications and Allergies Comment(s): Current Medications Acetaminophen (Tylenol Tab) 650 mg PO Q6HR PRN PRN Reason: Mild Pain or Fever > 100.5 Atorvastatin Calcium (Lipitor) 40 mg PO DAILY BETTE Last Admin: 05/15/17 07:49 Dose: 40 mg Benzocaine/Menthol (Cepacol Lozenge) 1 each MUCOUS MEM Q4HR PRN PRN Reason: Sore Throat Last Admin: 05/15/17 15:03 Dose: 1 each Chlorphenir/Hydrocodone Polistirex (Tussionex) 5 ml PO Q12H [facility] Last Admin: 05/15/17 21:30 Dose: 5 ml Diphenhydramine HCl (Benadryl) 1 mg PO HS PRN PRN Reason: Insomnia Sodium Chloride (Saline 0.9%) 1,000 mls @ 100 mls/hr IV .Q10H [facility] Last Admin: 05/15/17 13:11 Dose: 100 mls/hr Meropenem 1 gm/ Sodium (Chloride) 100 mls @ 100 mls/hr IVPB Q8HR [facility] Last Admin: 05/15/17 18:22 Dose: 100 mls/hr Insulin Aspart (Novolog) 0 unit SQ ACHS [facility] PRN Reason: Protocol Last Admin: 05/15/17 20:41 Dose: 4 unit Insulin Detemir (Levemir) 15 unit SQ HS [facility] Last Admin: 05/15/17 20:41 Dose: 15 unit Levothyroxine Sodium (Synthroid) 137 mcg PO DAILY@0630 [facility] Last Admin: 05/15/17 06:15 Dose: 137 mcg Lidocaine HCl (Xylocaine Viscous 2%) 30 mg MUCOUS MEM Q4HR PRN PRN Reason: mouth pain Last Admin: 05/13/17 00:00 Dose: 30 mg Linagliptin (Tradjenta) 5 mg PO DAILY [facility] Last Admin: 05/15/17 07:49 Dose: 5 mg Lisinopril (Zestril) 10 mg PO DAILY [facility] Last Admin: 05/15/17 07:49 Dose: 10 mg Loratadine (Claritin) 10 mg PO DAILY PRN PRN Reason: Allergy Symptoms Naloxone HCl (Narcan) 0.2 mg IV Q2M PRN PRN Reason: Opioid Reversal Ondansetron HCl (Zofran) 4 mg IVP Q8HR PRN PRN Reason: Nausea And Vomiting Oxybutynin Chloride (Ditropan Xl) 5 mg PO DAILY [facility] Last Admin: 05/15/17 07:49 Dose: 5 mg Oxycodone/Acetaminophen (Percocet 10-325) 1 each PO QID PRN PRN Reason: Pain Last Admin: 05/14/17 22:10 Dose: 1 each Pantoprazole Sodium (Protonix) 40 mg PO DAILY [facility] Last Admin: 05/15/17 07:49 Dose: 40 mg Sertraline HCl (Zoloft) 200 mg PO HS [facility] Last Admin: 05/15/17 20:42 Dose: 200 mg Valacyclovir HCl (Valtrex) 1,000 mg PO BID [facility] Last Admin: 05/15/17 21:31 Dose: 1,000 mg Home Medications Medication Instructions Recorded Confirmed Type Sertraline [Zoloft] 200 mg PO HS 03/07/15 05/12/17 History Atorvastatin [Lipitor] 40 mg PO DAILY 02/10/16 05/12/17 History Lisinopril 10 mg PO DAILY 02/10/16 05/12/17 History Levothyroxine Sodium [Synthroid] 137 mcg PO DAILY 08/17/16 05/12/17 History Cranberry/Vit C 4200mg 1 tab PO DAILY PRN 12/19/16 05/12/17 History Glimepiride [Amaryl] 2 mg PO BID 12/19/16 05/12/17 History HYDROcodone/APAP 10-325MG [[place] 1 tab PO Q4-6H PRN 12/19/16 05/12/17 History 10-325] Insulin Lispro [humaLOG Kwikpen] See Protocol SQ AC-TID PRN 03/08/17 05/12/17 History Omeprazole [PriLOSEC] 10 mg PO DAILY 03/08/17 05/12/17 History sitaGLIPtin PHOSPHATE [Januvia] 100 mg PO DAILY #30 tab 03/13/17 05/12/17 Rx Acetaminophen/Diphenhydramine 1 tab PO HS PRN 03/30/17 05/12/17 History [Tylenol PM 500-25mg] Diphenox-Atrop 2.5-0.025 mg 2 tab PO QID PRN 03/30/17 05/12/17 History [Lomotil] Insulin Aspart Protam & Aspart See Protocol SQ AC-TID PRN 03/30/17 05/12/17 History [NovoLOG MIX 70-30 Flexpen] Loratadine 10 mg PO DAILY PRN 03/30/17 05/12/17 History Tolterodine ER [Detrol LA] 4 mg PO DAILY 03/30/17 05/12/17 History oxyCODONE-APAP 10-325MG [Percocet 1 tab PO QID PRN 03/30/17 05/12/17 History 10-325 mg] Diazepam [Valium] 2 mg PO TID PRN #10 tab 04/03/17 05/12/17 Rx Fluconazole [Diflucan] 100 mg PO DAILY #6 tab 04/03/17 05/12/17 Rx Lidocaine Viscous [Xylocaine 30 ml PO Q4HR PRN 10 Days #1 bottle 04/03/17 Rx Viscous 2%] Allergies Allergy/AdvReac Type Severity Reaction Status Date / Time Anesthetics - Amide Type AdvReac Nausea & Verified 05/12/17 19:16 Vomiting & Diarrhea Anesthetics - Jonna Type- AdvReac Nausea & Verified 05/12/17 19:16 Parabens Vomiting & Diarrhea Physical Exam Vitals: Vital Signs Temp Pulse Resp BP Pulse Ox 05/15/17 20:19 98.8 F 79 18 111/70 96 05/15/17 15:00 97.9 F 86 16 133/72 97 05/15/17 07:00 98.5 F 72 16 125/71 98 Intake and Output 05/15/17 05/15/17 05/15/17 06:59 14:59 22:59 Other: Voiding Method Toilet Toilet # Voids 2 4 2 56-year-old woman who has obesity and generalized complaints of malaise and abdominal pain which is improved HEENT: Anicteric conjunctiva are pink and moist nasal mucosa grossly intact without significant lesions, there is no thrush. Neck: The neck is supple without significant lymphadenopathy or thyromegaly. Lungs: Good bilateral air entry without significant crackles or wheezing. There is no significant bronchial sounds. There is no egophony or dullness. The [id number]-Mpft left anterior chest wall is nontender and without erythema Heart: Regular rate and rhythm with an audible S1-S2, no S3 no S4. There is no significant murmur click or rub, PMI was nondisplaced. Abdomen: Obese, Positive bowel sounds soft distinctly tender into the right flank area and in the epigastric area. No palpable masses noted. No guarding or rebound. No bruising to the abdominal wall. Extremities: The upper extremities have excellent pulses they are symmetric, no significant petechiae or telangiectasia. No splinter hemorrhages were noted. The lower extremities are free from significant edema. The peripheral pulses were 2+ and symmetric. Neuro: Awake alert oriented to person place and time. There are no acute new gross focal sensory motor deficits. Results CBC & Chem 7: 05/15/17 08:14 05/15/17 08:14 Labs: Abnormal Lab Results - Last 24 Hours (Table) 05/15/17 05/15/17 05/15/17 Range/Units 07:36 08:14 08:14 WBC 1.7 L* (3.8-10.6) k/uL RBC 2.21 L (3.80-5.40) m/uL Hgb 7.6 L (11.4-16.0) gm/dL Hct 22.5 L (34.0-46.0) % MCV 101.9 H (80.0-100.0) fL Plt Count 23 L* D (150-450) k/uL Neutrophils # (Manual) 0.90 L (1.3-7.7) k/uL Lymphocytes # (Manual) 0.46 L (1.0-4.8) k/uL Chloride 108 H (98-107) mmol/L Glucose 149 H (74-99) mg/dL POC Glucose (mg/dL) 142 H (75-99) mg/dL Total Protein 4.7 L (6.3-8.2) g/dL Albumin 2.6 L (3.5-5.0) g/dL 05/15/17 05/15/17 05/15/17 Range/Units 11:43 17:13 19:59 WBC (3.8-10.6) k/uL RBC (3.80-5.40) m/uL Hgb (11.4-16.0) gm/dL Hct (34.0-46.0) % MCV (80.0-100.0) fL Plt Count (150-450) k/uL Neutrophils # (Manual) (1.3-7.7) k/uL Lymphocytes # (Manual) (1.0-4.8) k/uL Chloride (98-107) mmol/L Glucose (74-99) mg/dL POC Glucose (mg/dL) 257 H 139 H 211 H (75-99) mg/dL Total Protein (6.3-8.2) g/dL Albumin (3.5-5.0) g/dL Microbiology - Last 24 Hours (Table) 05/12/17 20:00 Blood Culture - Preliminary Blood No Growth after 72 hours 05/12/17 20:47 Urine Culture - Final Urine,Voided Klebsiella pneumoniae Escherichia coli Laboratory Results WBC 1.7 k/uL (3.8-10.6) L* 05/15/17 08:14 RBC 2.21 m/uL (3.80-5.40) L 05/15/17 08:14 Hgb 7.6 gm/dL (11.4-16.0) L 05/15/17 08:14 Hct 22.5 % (34.0-46.0) L 05/15/17 08:14 MCV 101.9 fL (80.0-100.0) H 05/15/17 08:14 MCH 34.5 pg (25.0-35.0) 05/15/17 08:14 MCHC 33.8 g/dL (31.0-37.0) 05/15/17 08:14 RDW 14.6 % (11.5-15.5) 05/15/17 08:14 Plt Count 23 k/uL (150-450) L* D 05/15/17 08:14 Neutrophils % (Manual) 53 % 05/15/17 08:14 Lymphocytes % (Manual) 27 % 05/15/17 08:14 Monocytes % (Manual) 18 % 05/15/17 08:14 Eosinophils % (Manual) 2 % 05/15/17 08:14 Neutrophils # (Manual) 0.90 k/uL (1.3-7.7) L 05/15/17 08:14 Lymphocytes # (Manual) 0.46 k/uL (1.0-4.8) L 05/15/17 08:14 Monocytes # (Manual) 0.31 k/uL (0-1.0) 05/15/17 08:14 Eosinophils # (Manual) 0.03 k/uL (0-0.7) 05/15/17 08:14 Nucleated RBCs 0 /100 WBC (0-0) 05/15/17 08:14 Differential Comment [employer] 05/14/17 11:42 Manual Slide Review Performed 05/15/17 08:14 Toxic Granulation Present 05/14/17 11:42 Polychromasia Present 05/14/17 11:42 Poikilocytosis (manual Present 05/15/17 08:14 Macrocytosis Slight 05/15/17 08:14 Sodium 140 mmol/L (137-145) 05/15/17 08:14 Potassium 4.0 mmol/L (3.5-5.1) 05/15/17 08:14 Chloride 108 mmol/L (98-107) H 05/15/17 08:14 Carbon Dioxide 28 mmol/L (22-30) 05/15/17 08:14 Anion Gap 4 mmol/L 05/15/17 08:14 BUN 7 mg/dL (7-17) 05/15/17 08:14 Creatinine 0.61 mg/dL (0.52-1.04) 05/15/17 08:14 Est GFR (MDRD) Af Amer >60 (>60 ml/min/1.73 sqM) 05/15/17 08:14 Est GFR (MDRD) Non-Af >60 (>60 ml/min/1.73 sqM) 05/15/17 08:14 Glucose 149 mg/dL (74-99) H 05/15/17 08:14 POC Glucose (mg/dL) 211 mg/dL (75-99) H 05/15/17 19:59 POC Glu [employer] DEANDRA Kathy Albertoth 05/15/17 19:59 Plasma Lactic Acid [place] 1.4 mmol/L (0.7-2.0) 05/12/17 20:00 Calcium 8.8 mg/dL (8.4-10.2) 05/15/17 08:14 Phosphorus 3.9 mg/dL (2.5-4.5) 05/15/17 08:14 Magnesium 1.7 mg/dL (1.6-2.3) 05/15/17 08:14 Total Bilirubin 0.5 mg/dL (0.2-1.3) 05/15/17 08:14 AST 24 U/L (14-36) 05/15/17 08:14 ALT 47 U/L (9-52) 05/15/17 08:14 Alkaline Phosphatase 119 U/L (38-126) 05/15/17 08:14 Total Protein 4.7 g/dL (6.3-8.2) L 05/15/17 08:14 Albumin 2.6 g/dL (3.5-5.0) L 05/15/17 08:14 Urine Color Yellow 05/12/17 20:47 Urine Appearance Clear (Clear) 05/12/17 20:47 Urine pH 7.0 (5.0-8.0) 05/12/17 20:47 Ur Specific [place] 1.014 (1.001-1.035) 05/12/17 20:47 Urine Protein Negative (Negative) 05/12/17 20:47 Urine Glucose (UA) 1+ (Negative) H 05/12/17 20:47 Urine Ketones Negative (Negative) 05/12/17 20:47 Urine Blood Negative (Negative) 05/12/17 20:47 Urine Nitrite Negative (Negative) 05/12/17 20:47 Urine Bilirubin Negative (Negative) 05/12/17 20:47 Urine Urobilinogen >12.0 mg/dL (<2.0) 05/12/17 20:47 Ur Leukocyte Esterase Negative (Negative) 05/12/17 20:47 Vancomycin Trough 14.8 ug/mL 05/15/17 08:14 Influenza Type A RNA Not Detected (Not Detectd) 05/12/17 20:15 Influenza Type B (PCR) Not Detected (Not Detectd) 05/12/17 20:15 Microbiology 05/12/17 20:00 Blood Blood Culture - Preliminary No Growth after 72 hours 05/12/17 20:47 Urine,Voided Urine Culture - Final Klebsiella pneumoniae Escherichia coli Chest x-ray: report reviewed, image reviewed (No evidence of a new acute infiltrate) Assessment and Plan (1) Febrile neutropenia Current Visit: Yes Status: Acute Code(s): D70.9 - NEUTROPENIA, UNSPECIFIED; R50.81 - FEVER PRESENTING WITH CONDITIONS CLASSIFIED ELSEWHERE SNOMED Code(s) : 186107380 (2) Non-Hodgkin lymphoma of extranodal and solid organ sites Current Visit: No Status: Chronic Priority: High Code(s): C85.99 - NON- HODGKIN LYMPHOMA, UNSP, EXTRANODAL AND SOLID ORGAN SITES SNOMED Code(s): 337003793 (3) ESBL (extended spectrum beta-lactamase) producing bacteria infection Narrative/Plan: 56-year-old female presents to emergency center feeling poorly with fevers and chills malaise and shortness of breath. It is noted she has a history of the non-Hodgkin's lymphoma and is receiving chemotherapy with R CHOP. His have frequent bouts of febrile neutropenia. Feeling very poorly this time with her pancytopenia and significant anemia. Recently was having some urinary symptoms and urine culture is showing and Klebsiella pneumoniae that is ESBL as well as E. coli. With her febrile neutropenia in the ESBL organism and microbial therapy is altered to carbapenem with Merrem. Bank was also continue for now given her significant high-grade history. She also is having significant mucositis-like symptoms that seem to be improving. Patient is evidence of a cold sore to the upper lip and Valtrex is added. Have asked the nursing staff to excess her [id number] if a new IV is needed. Current Visit: Yes Status: Acute Code(s): A49.9 - BACTERIAL INFECTION, UNSPECIFIED; Z16.12 - EXTENDED SPECTRUM BETA LACTAMASE (ESBL) RESISTANCE SNOMED Code(s): 887050691
[2017-05-16] MEDS: SODIUM CHLORIDE 0.9% 1,000 ML IV SCH ×4 (00:10→22:24)
[2017-05-16] MEDS: MEROPENEM 1 GM in SODIUM CHLORIDE 0.9% 100 ML IVPB SCH ×3 (00:11→17:08)
[2017-05-16 07:00] LABS: Glucose,Whole Blood 112 mg/dL (75-99)
[2017-05-16 07:40] LABS: Anion Gap 6 mmol/L; Blood Urea Nitrogen 7 mg/dL (7-17); Calcium 8.7 mg/dL (8.4-10.2); Carbon Dioxide 29 mmol/L (22-30); Chloride 107 mmol/L (98-107); Glucose 103 mg/dL (74-99); Magnesium 1.7 mg/dL (1.6-2.3); Phosphorus 3.9 mg/dL (2.5-4.5); Potassium 3.8 mmol/L (3.5-5.1); Sodium 142 mmol/L (137-145)
[2017-05-16 07:47] LABS: Anisocytosis Slight; Basophils % (A) 1 %; Eosinophils % (A) 1 %; HCT 23.1 % (34.0-46.0); HGB 7.5 gm/dL (11.4-16.0); Lymphocytes # (A) 0.5 k/uL (1.0-4.8); Lymphocytes % (A) 24 %; MCH 33.6 pg (25.0-35.0); MCHC 32.4 g/dL (31.0-37.0); MCV 103.9 fL (80.0-100.0); Macrocytosis Moderate; Mean Platelet Volume 11.6; Monocytes # (A) 0.2 k/uL (0-1.0); Monocytes % (A) 9 %; Neutrophils # (A) 1.1 k/uL (1.3-7.7); Neutrophils % (A) 61 %; RBC 2.23 m/uL (3.80-5.40); RDW 16.5 % (11.5-15.5)
[2017-05-16] MEDS: valACYclovir HCL 1,000 MG TABLET PO SCH ×2 (07:55→22:25)
[2017-05-16] MEDS: LEVOTHYROXINE 137 MCG TAB PO SCH (07:56)
[2017-05-16] MEDS: LISINOPRIL 10 MG TAB PO SCH (07:56)
[2017-05-16] MEDS: OXYBUTYNIN XL 5 MG TAB.ER.24 PO SCH (07:56)
[2017-05-16] MEDS: LINAGLIPTIN 5 MG TABLET PO SCH (07:56)
[2017-05-16] MEDS: ATORVASTATIN 40 MG TAB PO SCH (07:56)
[2017-05-16] MEDS: PANTOPRAZOLE 40 MG TABLET PO SCH (07:56)
[2017-05-16] MEDS: INSULIN ASPART 100 UNIT/ML 1 ML 10 ML VIAL SQ SCH ×4 (07:56→22:41)
[2017-05-16 08:00] LABS: WBC 1.9 k/uL (3.8-10.6)
[2017-05-16 08:01] LABS: Platelet Count 29 k/uL (150-450)
[2017-05-16 08:25] LABS: Poikilocytosis (M) Present
[2017-05-16] MEDS: CHLORPHEN-HYDROcod 8-10mg/5ml 5 ML ORAL.SYRG PO SCH ×2 (08:52→22:24)
--- NOTE | 2017-05-16 11:18 | P.PN ---
Subjective Progress Note Date: 05/16/17 Patient complaining of extreme fatigue, reports that she has been up ambulating to the restroom, afebrile overnight. No acute events overnight. Reports cough nonproductive but does remote port that she is feeling slightly better today Objective - Vital Signs Vital signs: Vital Signs Temp 98.3 F 05/16/17 07:00 Pulse 66 05/16/17 07:00 Resp 16 05/16/17 07:00 BP 131/76 05/16/17 07:00 Pulse Ox 97 05/16/17 07:00 Intake & Output 05/15/17 05/16/17 05/16/17 18:59 06:59 18:59 Other: Voiding Method Toilet Toilet Toilet # Voids 4 2 - Exam Constitutional: No acute distress, conversant, pleasant Eyes: Anicteric sclerae, moist conjunctiva, no lid-lag, PERRLA ENMT: NC/AT,Oropharynx clear, no erythema, exudates Neck:Supple, FROM, no masses, or JVD, No carotid bruits; No thyromegaly Lungs: Clear to auscultation, Clear to percussion, Normal respiratory effort, no accessory muscle use Cardiovascular: Heart regular in rate and rhythm, No murmurs, gallops, or rubs no peripheral edema Abdominal: Soft Nontender, nom distended, no guarding, no rebound or rigidity, Normoactive bowel sounds No hepatomegaly, No splenomegaly, No palpable mass No abdominal wall hernia noted Skin: Normal temperature, tone, texture, turgor, No induration No subcutaneous nodules, No rash, lesions, No ulcers Extremities:No digital cyanosis No clubbing, Pedal pulses intact and symmetrical Radial pulses intact and symmetrical Normal gait and station, No calf tenderness Psychiatric: Alert and oriented to person, place and time, Appropriate affect Intact judgement Neuro: Muscles Strength 5/5 in all 4 extremities, Sensation to light touch grossly present throughout, Cranial nerves II-XII grossly intact. No focal sensory deficits - Labs CBC & Chem 7: 05/16/17 06:52 05/16/17 06:52 Labs: Abnormal Lab Results - Last 24 Hours (Table) 05/15/17 05/15/17 05/15/17 Range/Units 11:43 17:13 19:59 WBC (3.8-10.6) k/uL RBC (3.80-5.40) m/uL Hgb (11.4-16.0) gm/dL Hct (34.0-46.0) % MCV (80.0-100.0) fL RDW (11.5-15.5) % Plt Count (150-450) k/uL Neutrophils # (1.3-7.7) k/uL Lymphocytes # (1.0-4.8) k/uL Glucose (74-99) mg/dL POC Glucose (mg/dL) 257 H 139 H 211 H (75-99) mg/dL 05/16/17 05/16/17 05/16/17 Range/Units 06:52 06:52 06:58 WBC 1.9 L* (3.8-10.6) k/uL RBC 2.23 L (3.80-5.40) m/uL Hgb 7.5 L (11.4-16.0) gm/dL Hct 23.1 L (34.0-46.0) % MCV 103.9 H (80.0-100.0) fL RDW 16.5 H (11.5-15.5) % Plt Count 29 L* (150-450) k/uL Neutrophils # 1.1 L (1.3-7.7) k/uL Lymphocytes # 0.5 L (1.0-4.8) k/uL Glucose 103 H (74-99) mg/dL POC Glucose (mg/dL) 112 H (75-99) mg/dL Microbiology - Last 24 Hours (Table) 05/12/17 20:00 Blood Culture - Preliminary Blood No Growth after 72 hours 05/12/17 20:47 Urine Culture - Final Urine,Voided Klebsiella pneumoniae Escherichia coli Assessment and Plan Assessment: (1) Febrile neutropenia * Blood cultures negative * Urine cultures ESBL Klebsiella pneumoniae and E. coli * Continue cefepime WBC improving (2)Sepsis * Secondary to UTI, patient afebrile and hemodynamically stable (3) UTI due to ESBL Klebsiella pneumoniae and E. coli (4) Pancytopenia * Due to her underlying cancer and chemotherapy * Improving * monitro levels daily (5) NHL (non-Hodgkin's lymphoma) * s/p chemotherapy * Continue OP follow up and surveillance with oncology (6) Diabetes mellitus * BS uncontrolled * Increase long acting insulin 10-->15 units daily * Continue insulin sliding scale while inpatient (7) Factor 5 Leiden mutation, heterozygous/History of DVT (deep vein thrombosis) * Holding xarelto due to severe thrombocytopenia (8) VINH (obstructive sleep apnea) patient is not currently using positive airaway pressure therapy at home due to intolerance of the mask (9) DVT prophylaxis SCDs, No AC due to severe thrombocytopenia
[2017-05-16 12:12] LABS: Glucose,Whole Blood 200 mg/dL (75-99)
--- NOTE | 2017-05-16 16:51 | P.PN ---
Subjective Progress Note Date: 05/16/17 Principal diagnosis: neutropenic fever Pt doing a little better today, she is tolerating liquids and Popsicles, no fever today, no nausea, cough, dysuria, hematuria, diarrhea, bleeding or pain. She is ambulating to the bathroom. Objective - Vital Signs Vital signs: Vital Signs Temp 98.8 F 05/16/17 15:00 Pulse 72 05/16/17 15:00 Resp 16 05/16/17 15:00 BP 112/71 05/16/17 15:00 Pulse Ox 95 05/16/17 15:00 Intake & Output 05/15/17 05/16/17 05/16/17 18:59 06:59 18:59 Other: Voiding Method Toilet Toilet Toilet # Voids 4 2 3 - Constitutional General appearance: Present: cooperative, no acute distress, obese - EENT Eyes: Present: EOMI, normal appearance - Respiratory Respiratory: bilateral: CTA - Peripheral edema leg Peripheral Edema: bilateral: None - Integumentary Integumentary: Present: normal - Neurologic Neurologic: Present: CNII-XII intact - Musculoskeletal Musculoskeletal: Present: strength equal bilaterally - Psychiatric Psychiatric: Present: A&O x's 3, appropriate affect, intact judgment & insight - Labs CBC & Chem 7: 05/16/17 06:52 05/16/17 06:52 Labs: Abnormal Lab Results - Last 24 Hours (Table) 05/15/17 05/15/17 05/16/17 Range/Units 17:13 19:59 06:52 WBC 1.9 L* (3.8-10.6) k/uL RBC 2.23 L (3.80-5.40) m/uL Hgb 7.5 L (11.4-16.0) gm/dL Hct 23.1 L (34.0-46.0) % MCV 103.9 H (80.0-100.0) fL RDW 16.5 H (11.5-15.5) % Plt Count 29 L* (150-450) k/uL Neutrophils # 1.1 L (1.3-7.7) k/uL Lymphocytes # 0.5 L (1.0-4.8) k/uL Glucose (74-99) mg/dL POC Glucose (mg/dL) 139 H 211 H (75-99) mg/dL 05/16/17 05/16/17 05/16/17 Range/Units 06:52 06:58 11:47 WBC (3.8-10.6) k/uL RBC (3.80-5.40) m/uL Hgb (11.4-16.0) gm/dL Hct (34.0-46.0) % MCV (80.0-100.0) fL RDW (11.5-15.5) % Plt Count (150-450) k/uL Neutrophils # (1.3-7.7) k/uL Lymphocytes # (1.0-4.8) k/uL Glucose 103 H (74-99) mg/dL POC Glucose (mg/dL) 112 H 200 H (75-99) mg/dL Microbiology - Last 24 Hours (Table) 05/12/17 20:00 Blood Culture - Preliminary Blood No Growth after 72 hours 05/12/17 20:47 Urine Culture - Final Urine,Voided Klebsiella pneumoniae Escherichia coli Assessment and Plan (1) Antineoplastic chemotherapy induced pancytopenia Narrative/Plan: Counts seem to have stabilized today. No transfusions, labs daily No asa, NSAIDS or anticoagulation as platelets are still <50,000 Current Visit: Yes Status: Acute Priority: High Code(s): D61.810 - ANTINEOPLASTIC CHEMOTHERAPY INDUCED PANCYTOPENIA; T45.1X5A - ADVERSE EFFECT OF ANTINEOPLASTIC AND IMMUNOSUP DRUGS, INIT SNOMED Code(s): 837872589048420 (2) ESBL (extended spectrum beta-lactamase) producing bacteria infection Narrative/Plan: ID following and treating Current Visit: Yes Status: Acute Priority: High Code(s): A49.9 - BACTERIAL INFECTION, UNSPECIFIED; Z16.12 - EXTENDED SPECTRUM BETA LACTAMASE ( ESBL) RESISTANCE SNOMED Code(s): 313468130 (3) NHL (non-Hodgkin's lymphoma) Narrative/Plan: Pt has completed treatment, she has been given appt for follow up PET and appt with Dr. Balderrama, she is aware Current Visit: No Status: Chronic Priority: Medium Code(s): C85.90 - NON- HODGKIN LYMPHOMA, UNSPECIFIED, UNSPECIFIED SITE SNOMED Code(s): 659078157
[2017-05-16 17:24] LABS: Glucose,Whole Blood 186 mg/dL (75-99)
[2017-05-16 20:22] LABS: Glucose,Whole Blood 169 mg/dL (75-99)
[2017-05-16] MEDS: SERTRALINE 100 MG TAB PO SCH (22:25)
[2017-05-16] MEDS: INSULIN DETEMIR 100 UNIT/ML 10 ML VIAL SQ SCH (22:41)
--- NOTE | 2017-05-16 23:04 | P.PN ---
Subjective Progress Note Date: 05/16/17 Principal diagnosis: Febrile neutropenia 56-year-old female has obesity was having difficulties earlier this year with ongoing pain in her upper abdomen and lower chest. She was out for a while to have pleurisy. However imaging studies were markedly abnormal. She was referred to [facility] where she underwent her interventions which revealed evidence of her non-Hodgkin's lymphoma in the mesentery and her liver. She's now received further courses of rCHOP therapy. Receiving Neulasta also. She has had neutropenia consistently with her treatments. Now again presents acutely ill with fever and neutropenia. Feeling very poorly. She was having fever with chills and significant generalized weakness and shortness of breath. Upon presentation evidence of significant pancytopenia and febrile neutropenia. Constantly infectious diseases consultation was requested. Patient has had a recent urine culture with an ESBL. Patient is feeling better today. Her ANC is now 1.1. Fevers improving. Her appetite is resolved. She is eating without difficulties. Objective - Vital Signs Vital signs: Vital Signs Temp 98.8 F 05/16/17 22:53 Pulse 71 05/16/17 22:53 Resp 16 05/16/17 22:53 BP 132/75 05/16/17 22:53 Pulse Ox 98 05/16/17 22:53 Intake & Output 05/16/17 05/16/17 05/17/17 06:59 18:59 06:59 Other: Voiding Method Toilet Toilet # Voids 2 3 2 - Exam 56-year-old woman who has obesity and generalized complaints of malaise and abdominal pain which is improved HEENT: Anicteric conjunctiva are pink and moist nasal mucosa grossly intact without significant lesions, there is no thrush. Of note there was a herpes lesion on the upper lip that is improving today with Valtrex. Patient is very pleased Neck: The neck is supple without significant lymphadenopathy or thyromegaly. Lungs: Good bilateral air entry without significant crackles or wheezing. There is no significant bronchial sounds. There is no egophony or dullness. The Spjhei-l-Haxl left anterior chest wall is nontender and without erythema Heart: Regular rate and rhythm with an audible S1-S2, no S3 no S4. There is no significant murmur click or rub, PMI was nondisplaced. Abdomen: Obese, Positive bowel sounds soft distinctly tender into the right flank area and in the epigastric area. No palpable masses noted. No guarding or rebound. No bruising to the abdominal wall. Extremities: The upper extremities have excellent pulses they are symmetric, no significant petechiae or telangiectasia. No splinter hemorrhages were noted. The lower extremities are free from significant edema. The peripheral pulses were 2+ and symmetric. Neuro: Awake alert oriented to person place and time. There are no acute new gross focal sensory motor deficits. - Labs CBC & Chem 7: 05/16/17 06:52 05/16/17 06:52 Labs: Abnormal Lab Results - Last 24 Hours (Table) 05/16/17 05/16/17 05/16/17 Range/Units 06:52 06:52 06:58 WBC 1.9 L* (3.8-10.6) k/uL RBC 2.23 L (3.80-5.40) m/uL Hgb 7.5 L (11.4-16.0) gm/dL Hct 23.1 L (34.0-46.0) % MCV 103.9 H (80.0-100.0) fL RDW 16.5 H (11.5-15.5) % Plt Count 29 L* (150-450) k/uL Neutrophils # 1.1 L (1.3-7.7) k/uL Lymphocytes # 0.5 L (1.0-4.8) k/uL Glucose 103 H (74-99) mg/dL POC Glucose (mg/dL) 112 H (75-99) mg/dL 05/16/17 05/16/17 05/16/17 Range/Units 11:47 17:17 20:19 WBC (3.8-10.6) k/uL RBC (3.80-5.40) m/uL Hgb (11.4-16.0) gm/dL Hct (34.0-46.0) % MCV (80.0-100.0) fL RDW (11.5-15.5) % Plt Count (150-450) k/uL Neutrophils # (1.3-7.7) k/uL Lymphocytes # (1.0-4.8) k/uL Glucose (74-99) mg/dL POC Glucose (mg/dL) 200 H 186 H 169 H (75-99) mg/dL Microbiology - Last 24 Hours (Table) 05/12/17 20:00 Blood Culture - Preliminary Blood No Growth after 96 hours Laboratory Results WBC 1.9 k/uL (3.8-10.6) L* 05/16/17 06:52 RBC 2.23 m/uL (3.80-5.40) L 05/16/17 06:52 Hgb 7.5 gm/dL (11.4-16.0) L 05/16/17 06:52 Hct 23.1 % (34.0-46.0) L 05/16/17 06:52 MCV 103.9 fL (80.0-100.0) H 05/16/17 06:52 MCH 33.6 pg (25.0-35.0) 05/16/17 06:52 MCHC 32.4 g/dL (31.0-37.0) 05/16/17 06:52 RDW 16.5 % (11.5-15.5) H 05/16/17 06:52 Plt Count 29 k/uL (150-450) L* 05/16/17 06:52 Neutrophils % 61 % 05/16/17 06:52 Neutrophils % (Manual) 53 % 05/15/17 08:14 Lymphocytes % 24 % 05/16/17 06:52 Lymphocytes % (Manual) 27 % 05/15/17 08:14 Monocytes % 9 % 05/16/17 06:52 Monocytes % (Manual) 18 % 05/15/17 08:14 Eosinophils % 1 % 05/16/17 06:52 Eosinophils % (Manual) 2 % 05/15/17 08:14 Basophils % 1 % 05/16/17 06:52 Neutrophils # 1.1 k/uL (1.3-7.7) L 05/16/17 06:52 Neutrophils # (Manual) 0.90 k/uL (1.3-7.7) L 05/15/17 08:14 Lymphocytes # 0.5 k/uL (1.0-4.8) L 05/16/17 06:52 Lymphocytes # (Manual) 0.46 k/uL (1.0-4.8) L 05/15/17 08:14 Monocytes # 0.2 k/uL (0-1.0) 05/16/17 06:52 Monocytes # (Manual) 0.31 k/uL (0-1.0) 05/15/17 08:14 Eosinophils # 0.0 k/uL (0-0.7) 05/16/17 06:52 Eosinophils # (Manual) 0.03 k/uL (0-0.7) 05/15/17 08:14 Basophils # 0.0 k/uL (0-0.2) 05/16/17 06:52 Nucleated RBCs 0 /100 WBC (0-0) 05/15/17 08:14 Differential Comment COMPLIANCE FIELD TECHNICIAN 05/14/17 11:42 Manual Slide Review Performed 05/16/17 06:52 Toxic Granulation Present 05/14/17 11:42 Polychromasia Present 05/14/17 11:42 Poikilocytosis (manual Present 05/16/17 06:52 Anisocytosis Slight 05/16/17 06:52 Macrocytosis Moderate 05/16/17 06:52 Sodium 142 mmol/L (137-145) 05/16/17 06:52 Potassium 3.8 mmol/L (3.5-5.1) 05/16/17 06:52 Chloride 107 mmol/L (98-107) 05/16/17 06:52 Carbon Dioxide 29 mmol/L (22-30) 05/16/17 06:52 Anion Gap 6 mmol/L 05/16/17 06:52 BUN 7 mg/dL (7-17) 05/16/17 06:52 Creatinine 0.59 mg/dL (0.52-1.04) 05/16/17 06:52 Est GFR (MDRD) Af Amer >60 (>60 ml/min/1.73 sqM) 05/16/17 06:52 Est GFR (MDRD) Non-Af >60 (>60 ml/min/1.73 sqM) 05/16/17 06:52 Glucose 103 mg/dL (74-99) H 05/16/17 06:52 POC Glucose (mg/dL) 169 mg/dL (75-99) H 05/16/17 20:19 POC Glu Certified Personal Chef ID Watt, Love 05/16/17 20:19 Plasma Lactic Acid Shaka 1.4 mmol/L (0.7-2.0) 05/12/17 20:00 Calcium 8.7 mg/dL (8.4-10.2) 05/16/17 06:52 Phosphorus 3.9 mg/dL (2.5-4.5) 05/16/17 06:52 Magnesium 1.7 mg/dL (1.6-2.3) 05/16/17 06:52 Total Bilirubin 0.5 mg/dL (0.2-1.3) 05/15/17 08:14 AST 24 U/L (14-36) 05/15/17 08:14 ALT 47 U/L (9-52) 05/15/17 08:14 Alkaline Phosphatase 119 U/L (38-126) 05/15/17 08:14 Total Protein 4.7 g/dL (6.3-8.2) L 05/15/17 08:14 Albumin 2.6 g/dL (3.5-5.0) L 05/15/17 08:14 Urine Color Yellow 05/12/17 20:47 Urine Appearance Clear (Clear) 05/12/17 20:47 Urine pH 7.0 (5.0-8.0) 05/12/17 20:47 Ur Specific [place] 1.014 (1.001-1.035) 05/12/17 20:47 Urine Protein Negative (Negative) 05/12/17 20:47 Urine Glucose (UA) 1+ (Negative) H 05/12/17 20:47 Urine Ketones Negative (Negative) 05/12/17 20:47 Urine Blood Negative (Negative) 05/12/17 20:47 Urine Nitrite Negative (Negative) 05/12/17 20:47 Urine Bilirubin Negative (Negative) 05/12/17 20:47 Urine Urobilinogen >12.0 mg/dL (<2.0) 05/12/17 20:47 Ur Leukocyte Esterase Negative (Negative) 05/12/17 20:47 Vancomycin Trough 14.8 ug/mL 05/15/17 08:14 Influenza Type A RNA Not Detected (Not Detectd) 05/12/17 20:15 Influenza Type B (PCR) Not Detected (Not Detectd) 05/12/17 20:15 Microbiology 05/12/17 20:00 Blood Blood Culture - Preliminary No Growth after 96 hours 05/12/17 20:47 Urine,Voided Urine Culture - Final Klebsiella pneumoniae Escherichia coli Assessment and Plan (1) Febrile neutropenia Narrative/Plan: 56-year-old female presents to emergency center feeling poorly with fevers and chills malaise and shortness of breath. It is noted she has a history of the non-Hodgkin's lymphoma and is receiving chemotherapy with R CHOP. His have frequent bouts of febrile neutropenia. Feeling very poorly this time with her pancytopenia and significant anemia. Recently was having some urinary symptoms and urine culture is showing and Klebsiella pneumoniae that is ESBL as well as E. coli. With her febrile neutropenia in the ESBL organism and microbial therapy is altered to carbapenem with Merrem. Vancomycin was also continue for now given her significant high-grade history. She also is having significant mucositis-like symptoms that seem to be improving. Patient is evidence of a cold sore to the upper lip and Valtrex is added. Nursing staff have access to her [id number]. The prior IV site to the left arm shows evidence of some swelling but no significant drainage. Current Visit: Yes Status: Acute Code(s): D70.9 - NEUTROPENIA, UNSPECIFIED; R50.81 - FEVER PRESENTING WITH CONDITIONS CLASSIFIED ELSEWHERE SNOMED Code(s) : 231860662 (2) Non-Hodgkin lymphoma of extranodal and solid organ sites Current Visit: No Status: Chronic Priority: High Code(s): C85.99 - NON- HODGKIN LYMPHOMA, UNSP, EXTRANODAL AND SOLID ORGAN SITES SNOMED Code(s): 831532356 (3) ESBL (extended spectrum beta-lactamase) producing bacteria infection Narrative/Plan: 56-year-old female presents to emergency center feeling poorly with fevers and chills malaise and shortness of breath. It is noted she has a history of the non-Hodgkin's lymphoma and is receiving chemotherapy with R CHOP. His have frequent bouts of febrile neutropenia. Feeling very poorly this time with her pancytopenia and significant anemia. Recently was having some urinary symptoms and urine culture is showing and Klebsiella pneumoniae that is ESBL as well as E. coli. With her febrile neutropenia in the ESBL organism and microbial therapy is altered to carbapenem with Merrem. Vancomycin was also continue for now given her significant high-grade history. She also is having significant mucositis-like symptoms that seem to be improving. Because of her improvement vancomycin is now discontinued. Patient is evidence of a cold sore to the upper lip and Valtrex is added. She' s requesting Valtrex E given for home because of her frequency of cold sores. Have asked the nursing staff to access her [id number] Current Visit: Yes Status: Acute Priority: High Code(s): A49.9 - BACTERIAL INFECTION, UNSPECIFIED; Z16.12 - EXTENDED SPECTRUM BETA LACTAMASE ( ESBL) RESISTANCE SNOMED Code(s): 457318723
[2017-05-17] MEDS: MEROPENEM 1 GM in SODIUM CHLORIDE 0.9% 100 ML IVPB SCH ×4 (02:06→23:48)
[2017-05-17] MEDS: LEVOTHYROXINE 137 MCG TAB PO SCH (06:04)
[2017-05-17 07:22] LABS: Glucose,Whole Blood 141 mg/dL (75-99)
[2017-05-17] MEDS: PANTOPRAZOLE 40 MG TABLET PO SCH (08:19)
[2017-05-17] MEDS: valACYclovir HCL 1,000 MG TABLET PO SCH ×2 (08:19→21:34)
[2017-05-17] MEDS: SODIUM CHLORIDE 0.9% 1,000 ML IV SCH ×2 (08:19→20:02)
[2017-05-17] MEDS: INSULIN ASPART 100 UNIT/ML 1 ML 10 ML VIAL SQ SCH ×4 (08:20→21:34)
[2017-05-17] MEDS: ATORVASTATIN 40 MG TAB PO SCH (08:20)
[2017-05-17] MEDS: OXYBUTYNIN XL 5 MG TAB.ER.24 PO SCH (08:20)
[2017-05-17] MEDS: LISINOPRIL 10 MG TAB PO SCH (08:20)
[2017-05-17] MEDS: LINAGLIPTIN 5 MG TABLET PO SCH (08:20)
[2017-05-17] MEDS: CHLORPHEN-HYDROcod 8-10mg/5ml 5 ML ORAL.SYRG PO SCH ×2 (08:21→21:59)
--- NOTE | 2017-05-17 09:24 | P.PN ---
Subjective Patient complaining of extreme fatigue, reports that she has been up ambulating to the restroom, afebrile overnight. No acute events overnight. Reports cough nonproductive but does remote port that she is feeling slightly better today. Objective - Vital Signs Vital signs: Vital Signs Temp 98.3 F 05/17/17 07:00 Pulse 64 05/17/17 07:00 Resp 16 05/17/17 07:00 BP 121/70 05/17/17 07:00 Pulse Ox 94 L 05/17/17 07:00 Intake & Output 05/16/17 05/17/17 05/17/17 18:59 06:59 18:59 Other: Voiding Method Toilet Toilet Toilet # Voids 3 2 - Exam Constitutional: No acute distress, conversant, pleasant Eyes: Anicteric sclerae, moist conjunctiva, no lid-lag, PERRLA ENMT: NC/AT,Oropharynx clear, no erythema, exudates Neck:Supple, FROM, no masses, or JVD, No carotid bruits; No thyromegaly Lungs: Clear to auscultation, Clear to percussion, Normal respiratory effort, no accessory muscle use Cardiovascular: Heart regular in rate and rhythm, No murmurs, gallops, or rubs no peripheral edema Abdominal: Soft Nontender, nom distended, no guarding, no rebound or rigidity, Normoactive bowel sounds No hepatomegaly, No splenomegaly, No palpable mass No abdominal wall hernia noted Skin: Normal temperature, tone, texture, turgor, No induration No subcutaneous nodules, No rash, lesions, No ulcers Extremities:No digital cyanosis No clubbing, Pedal pulses intact and symmetrical Radial pulses intact and symmetrical Normal gait and station, No calf tenderness Psychiatric: Alert and oriented to person, place and time, Appropriate affect Intact judgement Neuro: Muscles Strength 5/5 in all 4 extremities, Sensation to light touch grossly present throughout, Cranial nerves II-XII grossly intact. No focal sensory deficits - Labs CBC & Chem 7: 05/16/17 06:52 05/16/17 06:52 Labs: Abnormal Lab Results - Last 24 Hours (Table) 05/16/17 05/16/17 05/16/17 Range/Units 11:47 17:17 20:19 POC Glucose (mg/dL) 200 H 186 H 169 H (75-99) mg/dL 05/17/17 Range/Units 07:21 POC Glucose (mg/dL) 141 H (75-99) mg/dL Microbiology - Last 24 Hours (Table) 05/12/17 20:00 Blood Culture - Preliminary Blood No Growth after 96 hours Assessment and Plan Assessment: (1) Febrile neutropenia * Blood cultures negative * Urine cultures ESBL Klebsiella pneumoniae and E. coli * Continue Merrem WBC improving (2)Sepsis * Secondary to UTI, patient afebrile and hemodynamically stable (3) UTI due to ESBL Klebsiella pneumoniae and E. coli * continue with merrem day #2 (4) Pancytopenia * Due to her underlying cancer and chemotherapy * Improving * monitro levels daily (5) NHL (non-Hodgkin's lymphoma) * s/p chemotherapy * Continue OP follow up and surveillance with oncology (6) Diabetes mellitus * BS controlled * Continue with levemir 15 units daily * Continue insulin sliding scale while inpatient (7) Factor 5 Leiden mutation, heterozygous/History of DVT (deep vein thrombosis) * Holding xarelto due to severe thrombocytopenia (8) VINH (obstructive sleep apnea) patient is not currently using positive airaway pressure therapy at home due to intolerance of the mask (9) DVT prophylaxis SCDs, No AC due to severe thrombocytopenia
--- NOTE | 2017-05-17 11:19 | CDI ---
Last Revision, April 2017 Documentation Clarification Form Date: 05/17/2017 10:58:00 AM From: Irma Lane Admit Date: 05/12/2017 9:58:00 PM Patient Name: Nidhi Cervantes Visit Number: [id number] ATTENTION: The Clinical Documentation Specialists (CDI) and [facility] Coding Staff appreciate your assistance in clarifying documentation. Please respond to the clarification below the line at the bottom and electronically sign. The CDI & [facility] Coding staff will review the response and follow-up if needed. Please note: Queries are made part of the Legal Health Record. If you have any questions, please contact the author of this message via ITS. Dr. Art Mays, Documentation and location in medical record on 05/17 included 'sepsis secondary to UTI'. History/Risk Factors: Non Hodkins Lymphoma with chemo., angina, dm, HTN Clinical Indicators: WBC on admission 0.5 Lactic Acid on admission 1.4 Blood cultures: preliminary neg. after 96 hours Vitals signs on admission: T 100.7, P 88, R 20, 110/54, 99%RA Treatment: Consult: Dr Patel, Dr Jeffrey Antibiotics: Cefepime IV IV Bolus: x1 In your professional opinion, please clarify if these findings signify one of the following conditions, whether the condition is POA: Sepsis present on admission YES Sepsis present on admissionYES Other, please specify Unable to determine Please continue to document in your progress notes and discharge summary in order to capture severity of illness and risk of mortality. Include clinical findings that support your diagnosis. MTDD
--- NOTE | 2017-05-17 11:40 | CDI ---
Last Revision, April 2017 Documentation Clarification Form Date: 05/17/2017 11:21:00 AM From: Irma Lane Admit Date: 05/12/2017 9:58:00 PM Patient Name: Nidhi Cervantes Visit Number: [id number] ATTENTION: The Clinical Documentation Specialists (CDI) and [facility] Coding Staff appreciate your assistance in clarifying documentation. Please respond to the clarification below the line at the bottom and electronically sign. The CDI & [facility] Coding staff will review the response and follow-up if needed. Please note: Queries are made part of the Legal Health Record. If you have any questions, please contact the author of this message via ITS. Dr. Art Mays, Patient history/risk factors Neutropenic fever UTI Non Hodgkins lymphoma with current chemo treatment Clinical Indicators: Lab findings: on admission: WBC 0.5, RBC 2.26, PLT. 10, on 05/14- WBC 1.1, RBC 2.07, PLT 12, NEUTROPHILS 0.62, LYMPHOCYTES 0.23 Vital Signs: on admission T 100.7, P88, R 20, 110/54 99%RA Treatment: Cefepime IV, fluid bolus x1 Consults: Dr Patel In your professional opinion, can you please clarify the cause of the Neutropenic fever? Question is better directed at ID Please continue to document in your progress notes and discharge summary in order to capture severity of illness and risk of mortality. Include clinical findings that support your diagnosis. MTDD
[2017-05-17 12:26] LABS: Glucose,Whole Blood 216 mg/dL (75-99)
[2017-05-17 17:36] LABS: Glucose,Whole Blood 160 mg/dL (75-99)
[2017-05-17 20:17] LABS: Glucose,Whole Blood 229 mg/dL (75-99)
[2017-05-17] MEDS: INSULIN DETEMIR 100 UNIT/ML 10 ML VIAL SQ SCH (21:34)
[2017-05-17] MEDS: SERTRALINE 100 MG TAB PO SCH (21:34)
--- NOTE | 2017-05-17 23:39 | P.PN ---
Subjective Progress Note Date: 05/17/17 Principal diagnosis: Febrile neutropenia 56-year-old female has obesity was having difficulties earlier this year with ongoing pain in her upper abdomen and lower chest. She was out for a while to have pleurisy. However imaging studies were markedly abnormal. 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 She's now received further courses of rCHOP therapy. Receiving Neulasta also. She has had neutropenia consistently with her treatments. Now again presents acutely ill with fever and neutropenia. Feeling very poorly. She was having fever with chills and significant generalized weakness and shortness of breath. Upon presentation evidence of significant pancytopenia and febrile neutropenia. Constantly infectious diseases consultation was requested. Patient has had a recent urine culture with an ESBL. Patient is feeling better today. Her ANC is now 1.1. Fevers improving. Her appetite is resolved. She is eating without difficulties. Objective - Vital Signs Vital signs: Vital Signs Temp 98.0 F 05/17/17 15:00 Pulse 74 05/17/17 15:00 Resp 16 05/17/17 15:00 BP 126/74 05/17/17 15:00 Pulse Ox 97 05/17/17 15:00 Intake & Output 05/17/17 05/17/17 05/18/17 06:59 18:59 06:59 Intake Total 800 Balance 800 Intake: Oral 800 Other: Voiding Method Toilet Toilet # Voids 2 3 - Exam 56-year-old woman who has obesity and generalized complaints of malaise and abdominal pain which is improved HEENT: Anicteric conjunctiva are pink and moist nasal mucosa grossly intact without significant lesions, there is no thrush. Of note there was a herpes lesion on the upper lip that is improving today with Valtrex. Patient is very pleased Neck: The neck is supple without significant lymphadenopathy or thyromegaly. Lungs: Good bilateral air entry without significant crackles or wheezing. There is no significant bronchial sounds. There is no egophony or dullness. The [facility] left anterior chest wall is nontender and without erythema Heart: Regular rate and rhythm with an audible S1-S2, no S3 no S4. There is no significant murmur click or rub, PMI was nondisplaced. Abdomen: Obese, Positive bowel sounds soft distinctly tender into the right flank area and in the epigastric area. No palpable masses noted. No guarding or rebound. No bruising to the abdominal wall. Extremities: The upper extremities have excellent pulses they are symmetric, no significant petechiae or telangiectasia. No splinter hemorrhages were noted. The lower extremities are free from significant edema. The peripheral pulses were 2+ and symmetric. Neuro: Awake alert oriented to person place and time. There are no acute new gross focal sensory motor deficits. - Labs CBC & Chem 7: 05/16/17 06:52 05/16/17 06:52 Labs: Abnormal Lab Results - Last 24 Hours (Table) 05/17/17 05/17/17 05/17/17 Range/Units 07:21 12:24 17:34 POC Glucose (mg/dL) 141 H 216 H 160 H (75-99) mg/dL 05/17/17 Range/Units 20:15 POC Glucose (mg/dL) 229 H (75-99) mg/dL Microbiology - Last 24 Hours (Table) 05/12/17 20:00 Blood Culture - Preliminary Blood No Growth after 120 hours Laboratory Results WBC 1.9 k/uL (3.8-10.6) L* 05/16/17 06:52 RBC 2.23 m/uL (3.80-5.40) L 05/16/17 06:52 Hgb 7.5 gm/dL (11.4-16.0) L 05/16/17 06:52 Hct 23.1 % (34.0-46.0) L 05/16/17 06:52 MCV 103.9 fL (80.0-100.0) H 05/16/17 06:52 MCH 33.6 pg (25.0-35.0) 05/16/17 06:52 MCHC 32.4 g/dL (31.0-37.0) 05/16/17 06:52 RDW 16.5 % (11.5-15.5) H 05/16/17 06:52 Plt Count 29 k/uL (150-450) L* 05/16/17 06:52 Neutrophils % 61 % 05/16/17 06:52 Neutrophils % (Manual) 53 % 05/15/17 08:14 Lymphocytes % 24 % 05/16/17 06:52 Lymphocytes % (Manual) 27 % 05/15/17 08:14 Monocytes % 9 % 05/16/17 06:52 Monocytes % (Manual) 18 % 05/15/17 08:14 Eosinophils % 1 % 05/16/17 06:52 Eosinophils % (Manual) 2 % 05/15/17 08:14 Basophils % 1 % 05/16/17 06:52 Neutrophils # 1.1 k/uL (1.3-7.7) L 05/16/17 06:52 Neutrophils # (Manual) 0.90 k/uL (1.3-7.7) L 05/15/17 08:14 Lymphocytes # 0.5 k/uL (1.0-4.8) L 05/16/17 06:52 Lymphocytes # (Manual) 0.46 k/uL (1.0-4.8) L 05/15/17 08:14 Monocytes # 0.2 k/uL (0-1.0) 05/16/17 06:52 Monocytes # (Manual) 0.31 k/uL (0-1.0) 05/15/17 08:14 Eosinophils # 0.0 k/uL (0-0.7) 05/16/17 06:52 Eosinophils # (Manual) 0.03 k/uL (0-0.7) 05/15/17 08:14 Basophils # 0.0 k/uL (0-0.2) 05/16/17 06:52 Nucleated RBCs 0 /100 WBC (0-0) 05/15/17 08:14 Differential Comment INFORMATION COORDINATOR 05/14/17 11:42 Manual Slide Review Performed 05/16/17 06:52 Toxic Granulation Present 05/14/17 11:42 Polychromasia Present 05/14/17 11:42 Poikilocytosis (manual Present 05/16/17 06:52 Anisocytosis Slight 05/16/17 06:52 Macrocytosis Moderate 05/16/17 06:52 Sodium 142 mmol/L (137-145) 05/16/17 06:52 Potassium 3.8 mmol/L (3.5-5.1) 05/16/17 06:52 Chloride 107 mmol/L (98-107) 05/16/17 06:52 Carbon Dioxide 29 mmol/L (22-30) 05/16/17 06:52 Anion Gap 6 mmol/L 05/16/17 06:52 BUN 7 mg/dL (7-17) 05/16/17 06:52 Creatinine 0.59 mg/dL (0.52-1.04) 05/16/17 06:52 Est GFR (MDRD) Af Amer >60 (>60 ml/min/1.73 sqM) 05/16/17 06:52 Est GFR (MDRD) Non-Af >60 (>60 ml/min/1.73 sqM) 05/16/17 06:52 Glucose 103 mg/dL (74-99) H 05/16/17 06:52 POC Glucose (mg/dL) 229 mg/dL (75-99) H 05/17/17 20:15 POC Glu [employer] Coordinator ID Vilma Eduardo 05/17/17 20:15 Plasma Lactic Acid [place] 1.4 mmol/L (0.7-2.0) 05/12/17 20:00 Calcium 8.7 mg/dL (8.4-10.2) 05/16/17 06:52 Phosphorus 3.9 mg/dL (2.5-4.5) 05/16/17 06:52 Magnesium 1.7 mg/dL (1.6-2.3) 05/16/17 06:52 Total Bilirubin 0.5 mg/dL (0.2-1.3) 05/15/17 08:14 AST 24 U/L (14-36) 05/15/17 08:14 ALT 47 U/L (9-52) 05/15/17 08:14 Alkaline Phosphatase 119 U/L (38-126) 05/15/17 08:14 Total Protein 4.7 g/dL (6.3-8.2) L 05/15/17 08:14 Albumin 2.6 g/dL (3.5-5.0) L 05/15/17 08:14 Urine Color Yellow 05/12/17 20:47 Urine Appearance Clear (Clear) 05/12/17 20:47 Urine pH 7.0 (5.0-8.0) 05/12/17 20:47 Ur Specific [place] 1.014 (1.001-1.035) 05/12/17 20:47 Urine Protein Negative (Negative) 05/12/17 20:47 Urine Glucose (UA) 1+ (Negative) H 05/12/17 20:47 Urine Ketones Negative (Negative) 05/12/17 20:47 Urine Blood Negative (Negative) 05/12/17 20:47 Urine Nitrite Negative (Negative) 05/12/17 20:47 Urine Bilirubin Negative (Negative) 05/12/17 20:47 Urine Urobilinogen >12.0 mg/dL (<2.0) 05/12/17 20:47 Ur Leukocyte Esterase Negative (Negative) 05/12/17 20:47 Vancomycin Trough 14.8 ug/mL 05/15/17 08:14 Influenza Type A RNA Not Detected (Not Detectd) 05/12/17 20:15 Influenza Type B (PCR) Not Detected (Not Detectd) 05/12/17 20:15 Microbiology 05/12/17 20:00 Blood Blood Culture - Preliminary No Growth after 120 hours 05/12/17 20:47 Urine,Voided Urine Culture - Final Klebsiella pneumoniae Escherichia coli Assessment and Plan (1) Febrile neutropenia Narrative/Plan: 56-year-old female presents to emergency center feeling poorly with fevers and chills malaise and shortness of breath. It is noted she has a history of the non-Hodgkin's lymphoma and is receiving chemotherapy with R CHOP. His have frequent bouts of febrile neutropenia. Feeling very poorly this time with her pancytopenia and significant anemia. Recently was having some urinary symptoms and urine culture is showing and Klebsiella pneumoniae that is ESBL as well as E. coli. With her febrile neutropenia in the ESBL organism and microbial therapy is altered to carbapenem with Merrem. Vancomycin was also continue for now given her significant high-grade history. She also is having significant mucositis-like symptoms that seem to be improving. Patient is evidence of a cold sore to the upper lip and Valtrex is added. Nursing staff have access to her [id number]. The prior IV site to the left arm shows evidence of some swelling but no significant drainage. Improving today. At the time of her discharge the patient may be placed on levofloxacin 750 mg orally daily for 7 days to complete the treatment of her urinary tract infection. Current Visit: Yes Status: Acute Code(s): D70.9 - NEUTROPENIA, UNSPECIFIED; R50.81 - FEVER PRESENTING WITH CONDITIONS CLASSIFIED ELSEWHERE SNOMED Code(s) : 620285961 (2) Non-Hodgkin lymphoma of extranodal and solid organ sites Current Visit: No Status: Chronic Priority: High Code(s): C85.99 - NON- HODGKIN LYMPHOMA, UNSP, EXTRANODAL AND SOLID ORGAN SITES SNOMED Code(s): 605711856 (3) ESBL (extended spectrum beta-lactamase) producing bacteria infection Current Visit: Yes Status: Acute Priority: High Code(s): A49.9 - BACTERIAL INFECTION, UNSPECIFIED; Z16.12 - EXTENDED SPECTRUM BETA LACTAMASE ( ESBL) RESISTANCE SNOMED Code(s): 563825808
[2017-05-17] MEDS: AMMONIUM LACTATE 12% CREAM 140 GM TUBE TOPICAL SCH (23:48)
[2017-05-18 07:08] LABS: Glucose,Whole Blood 130 mg/dL (75-99)
[2017-05-18] MEDS: SODIUM CHLORIDE 0.9% 1,000 ML IV SCH ×2 (07:13→21:53)
[2017-05-18] MEDS: INSULIN ASPART 100 UNIT/ML 1 ML 10 ML VIAL SQ SCH ×4 (07:48→21:52)
[2017-05-18] MEDS: LEVOTHYROXINE 137 MCG TAB PO SCH (08:18)
--- NOTE | 2017-05-18 08:46 | CDI ---
Last Revision, April 2017 Documentation Clarification Form Date: 05/17/2017 10:58:00 AM From: Irma Lane Phone: Admit Date: 05/12/2017 9:58:00 PM Patient Name: Nidhi Cervantes Visit Number: [id number] Discharge Date: ATTENTION: The Clinical Documentation Specialists (CDI) and [facility] Coding Staff appreciate your assistance in clarifying documentation. Please respond to the clarification below the line at the bottom and electronically sign. The CDI & [facility] Coding staff will review the response and follow-up if needed. Please note: Queries are made part of the Legal Health Record. If you have any questions, please contact the author of this message via ITS. Dr. Art Mays, (second request pleas respond on bottom of query) Documentation and location in medical record on 05/17 included 'sepsis secondary to UTI'. History/Risk Factors: Non Hodkins Lymphoma with chemo., angina, dm, HTN Clinical Indicators: WBC on admission 0.5 Lactic Acid on admission 1.4 Blood cultures: preliminary neg. after 96 hours Vitals signs on admission: T 100.7, P 88, R 20, 110/54, 99%RA Treatment: Consult: Dr Patel, Dr Jeffrey Antibiotics: Cefepime IV IV Bolus: x1 In your professional opinion, please clarify if these findings signify one of the following conditions, whether the condition is POA: Sepsis present on admission YES refer to last progress note Sepsis present on admission NO Other, please specify Please continue to document in your progress notes and discharge summary in order to capture severity of illness and risk of mortality. Include clinical findings that support your diagnosis. MTDD
--- NOTE | 2017-05-18 08:48 | CDI ---
Last Revision, April 2017 Documentation Clarification Form Date: 05/17/2017 11:21:00 AM From: Irma Lane Phone: Admit Date: 05/12/2017 9:58:00 PM Patient Name: Nidhi Cervantes Visit Number: [id number] Discharge Date: ATTENTION: The Clinical Documentation Specialists (CDI) and [facility] Coding Staff appreciate your assistance in clarifying documentation. Please respond to the clarification below the line at the bottom and electronically sign. The CDI & [facility] Coding staff will review the response and follow-up if needed. Please note: Queries are made part of the Legal Health Record. If you have any questions, please contact the author of this message via ITS. Dr. Pablo Patel, Patient history/risk factors Neutropenic fever UTI Non Hodgkins lymphoma with current chemo treatment Clinical Indicators: Lab findings: on admission: WBC 0.5, RBC 2.26, PLT. 10, on 05/14- WBC 1.1, RBC 2.07, PLT 12, NEUTROPHILS 0.62, LYMPHOCYTES 0.23 Vital Signs: on admission T 100.7, P88, R 20, 110/54 99%RA Treatment: Cefepime IV, fluid bolus x1 Consults: Dr Patel In your professional opinion, can you please clarify the cause of the Neutropenic fever? Neutropenic fever secondary to UTI Neutropenic fever secondary to Non Hodgkins Lymphoma/chemo Neutropenic fever secondary to both [place] and Non Hodgkins Lymphoma/chemo Neutropenic fever other cause, please specify Neutropenic fever cause unknown Please continue to document in your progress notes and discharge summary in order to capture severity of illness and risk of mortality. Include clinical findings that support your diagnosis. MTDD
[2017-05-18] MEDS: MEROPENEM 1 GM in SODIUM CHLORIDE 0.9% 100 ML IVPB SCH ×3 (09:11→23:50)
[2017-05-18] MEDS: ATORVASTATIN 40 MG TAB PO SCH (09:11)
[2017-05-18] MEDS: AMMONIUM LACTATE 12% CREAM 140 GM TUBE TOPICAL SCH ×2 (09:11→21:53)
[2017-05-18] MEDS: PANTOPRAZOLE 40 MG TABLET PO SCH (09:11)
[2017-05-18] MEDS: CHLORPHEN-HYDROcod 8-10mg/5ml 5 ML ORAL.SYRG PO SCH ×2 (09:11→21:53)
[2017-05-18] MEDS: LINAGLIPTIN 5 MG TABLET PO SCH (09:12)
[2017-05-18] MEDS: LISINOPRIL 10 MG TAB PO SCH (09:12)
[2017-05-18] MEDS: OXYBUTYNIN XL 5 MG TAB.ER.24 PO SCH (09:12)
[2017-05-18] MEDS: valACYclovir HCL 1,000 MG TABLET PO SCH ×2 (09:12→21:52)
[2017-05-18 11:20] LABS: Glucose,Whole Blood 266 mg/dL (75-99)
[2017-05-18 11:28] LABS: Anisocytosis Slight; Basophils % (A) 1 %; Eosinophils % (A) 1 %; HCT 25.2 % (34.0-46.0); HGB 8.1 gm/dL (11.4-16.0); Hypochromasia Slight; Lymphocytes # (A) 0.3 k/uL (1.0-4.8); Lymphocytes % (A) 17 %; MCH 33.9 pg (25.0-35.0); MCHC 32.1 g/dL (31.0-37.0); MCV 105.5 fL (80.0-100.0); Macrocytosis Moderate; Mean Platelet Volume 9.8; Monocytes # (A) 0.2 k/uL (0-1.0); Monocytes % (A) 12 %; Neutrophils # (A) 1.2 k/uL (1.3-7.7); Neutrophils % (A) 66 %; RBC 2.38 m/uL (3.80-5.40); RDW 17.4 % (11.5-15.5)
[2017-05-18 11:52] LABS: Platelet Count 52 k/uL (150-450); WBC 1.9 k/uL (3.8-10.6)
--- NOTE | 2017-05-18 13:36 | P.PN ---
Subjective Progress Note Date: 05/18/17 Patient complaining of extreme fatigue, reports that she has been up ambulating to the restroom, afebrile overnight. No acute events overnight. Reports cough nonproductive but does remote port that she is feeling slightly better today. Objective - Vital Signs Vital signs: Vital Signs Temp 97.9 F 05/18/17 07:00 Pulse 73 05/18/17 07:00 Resp 18 05/18/17 07:00 BP 138/71 05/18/17 07:00 Pulse Ox 97 05/18/17 07:00 Intake & Output 05/17/17 05/18/17 05/18/17 18:59 06:59 18:59 Intake Total 800 1180 Balance 800 1180 Weight 113.398 kg Intake: Oral 800 1180 Other: Voiding Method Toilet Toilet Toilet # Voids 3 2 - Exam Constitutional: No acute distress, conversant, pleasant Eyes: Anicteric sclerae, moist conjunctiva, no lid-lag, PERRLA ENMT: NC/AT,Oropharynx clear, no erythema, exudates Neck:Supple, FROM, no masses, or JVD, No carotid bruits; No thyromegaly Lungs: Clear to auscultation, Clear to percussion, Normal respiratory effort, no accessory muscle use Cardiovascular: Heart regular in rate and rhythm, No murmurs, gallops, or rubs no peripheral edema Abdominal: Soft Nontender, nom distended, no guarding, no rebound or rigidity, Normoactive bowel sounds No hepatomegaly, No splenomegaly, No palpable mass No abdominal wall hernia noted Skin: Normal temperature, tone, texture, turgor, No induration No subcutaneous nodules, No rash, lesions, No ulcers Extremities:No digital cyanosis No clubbing, Pedal pulses intact and symmetrical Radial pulses intact and symmetrical Normal gait and station, No calf tenderness Psychiatric: Alert and oriented to person, place and time, Appropriate affect Intact judgement Neuro: Muscles Strength 5/5 in all 4 extremities, Sensation to light touch grossly present throughout, Cranial nerves II-XII grossly intact. No focal sensory deficits - Labs CBC & Chem 7: 05/18/17 11:16 05/16/17 06:52 Labs: Abnormal Lab Results - Last 24 Hours (Table) 05/17/17 05/17/17 05/18/17 Range/Units 17:34 20:15 07:04 WBC (3.8-10.6) k/uL RBC (3.80-5.40) m/uL Hgb (11.4-16.0) gm/dL Hct (34.0-46.0) % MCV (80.0-100.0) fL RDW (11.5-15.5) % Plt Count (150-450) k/uL Neutrophils # (1.3-7.7) k/uL Lymphocytes # (1.0-4.8) k/uL POC Glucose (mg/dL) 160 H 229 H 130 H (75-99) mg/dL 05/18/17 05/18/17 Range/Units 11:15 11:16 WBC 1.9 L* (3.8-10.6) k/uL RBC 2.38 L (3.80-5.40) m/uL Hgb 8.1 L (11.4-16.0) gm/dL Hct 25.2 L (34.0-46.0) % MCV 105.5 H (80.0-100.0) fL RDW 17.4 H (11.5-15.5) % Plt Count 52 L D (150-450) k/uL Neutrophils # 1.2 L (1.3-7.7) k/uL Lymphocytes # 0.3 L (1.0-4.8) k/uL POC Glucose (mg/dL) 266 H (75-99) mg/dL Microbiology - Last 24 Hours (Table) 05/12/17 20:00 Blood Culture - Preliminary Blood No Growth after 120 hours Assessment and Plan Assessment: (1) Febrile neutropenia * Blood cultures negative * Urine cultures ESBL Klebsiella pneumoniae and E. coli * Continue Merrem WBC improving (2)Sepsis present on admission * Secondary to UTI, patient afebrile and hemodynamically stable (3) UTI due to ESBL Klebsiella pneumoniae and E. coli * continue with merrem day 3 (4) Pancytopenia * Due to her underlying cancer and chemotherapy * Improving * monitro levels daily (5) NHL (non-Hodgkin's lymphoma) * s/p chemotherapy * Continue OP follow up and surveillance with oncology (6) Diabetes mellitus * BS controlled * Continue with levemir 15 units daily * Continue insulin sliding scale while inpatient (7) Factor 5 Leiden mutation, heterozygous/History of DVT (deep vein thrombosis) * Holding xarelto due to severe thrombocytopenia (8) VINH (obstructive sleep apnea) patient is not currently using positive airaway pressure therapy at home due to intolerance of the mask (9) DVT prophylaxis SCDs,
[2017-05-18 16:59] LABS: Glucose,Whole Blood 129 mg/dL (75-99)
[2017-05-18 20:29] LABS: Glucose,Whole Blood 185 mg/dL (75-99)
[2017-05-18] MEDS: SERTRALINE 100 MG TAB PO SCH (21:52)
[2017-05-18] MEDS: INSULIN DETEMIR 100 UNIT/ML 10 ML VIAL SQ SCH (21:52)
[2017-05-19] MEDS: LEVOTHYROXINE 137 MCG TAB PO SCH (05:18)
[2017-05-19 07:25] LABS: Glucose,Whole Blood 114 mg/dL (75-99)
[2017-05-19] MEDS: INSULIN ASPART 100 UNIT/ML 1 ML 10 ML VIAL SQ SCH ×4 (08:14→21:21)
[2017-05-19] MEDS: MEROPENEM 1 GM in SODIUM CHLORIDE 0.9% 100 ML IVPB SCH ×2 (08:38→17:00)
[2017-05-19] MEDS: CHLORPHEN-HYDROcod 8-10mg/5ml 5 ML ORAL.SYRG PO SCH ×2 (08:38→21:20)
[2017-05-19] MEDS: PANTOPRAZOLE 40 MG TABLET PO SCH (08:39)
[2017-05-19] MEDS: OXYBUTYNIN XL 5 MG TAB.ER.24 PO SCH (08:39)
[2017-05-19] MEDS: valACYclovir HCL 1,000 MG TABLET PO SCH ×2 (08:39→21:20)
[2017-05-19] MEDS: AMMONIUM LACTATE 12% CREAM 140 GM TUBE TOPICAL SCH ×2 (08:39→21:21)
[2017-05-19] MEDS: SODIUM CHLORIDE 0.9% 1,000 ML IV SCH ×2 (08:40→17:00)
[2017-05-19] MEDS: LINAGLIPTIN 5 MG TABLET PO SCH (08:40)
[2017-05-19] MEDS: LISINOPRIL 10 MG TAB PO SCH (08:40)
[2017-05-19] MEDS: ATORVASTATIN 40 MG TAB PO SCH (08:40)
[2017-05-19 09:43] LABS: Anisocytosis Slight; Basophils % (A) 1 %; Eosinophils % (A) 1 %; HCT 25.5 % (34.0-46.0); Lymphocytes # (A) 0.4 k/uL (1.0-4.8); Lymphocytes % (A) 22 %; MCH 33.2 pg (25.0-35.0); MCHC 31.5 g/dL (31.0-37.0); MCV 105.6 fL (80.0-100.0); Macrocytosis Moderate; Mean Platelet Volume 9.3; Monocytes # (A) 0.2 k/uL (0-1.0); Monocytes % (A) 10 %; Neutrophils # (A) 1.2 k/uL (1.3-7.7); Neutrophils % (A) 62 %; RBC 2.42 m/uL (3.80-5.40); RDW 17.6 % (11.5-15.5)
[2017-05-19 09:45] LABS: Platelet Count 56 k/uL (150-450)
--- NOTE | 2017-05-19 10:36 | P.PN ---
Subjective Progress Note Date: 05/19/17 Patient complaining of fatigued but is more upbeat today, reports that she has been up ambulating to the restroom, afebrile overnight. No acute events overnight. Objective - Vital Signs Vital signs: Vital Signs Temp 97.8 F 05/19/17 07:00 Pulse 66 05/19/17 07:00 Resp 18 05/19/17 07:00 BP 138/70 05/19/17 07:00 Pulse Ox 96 05/19/17 07:00 Intake & Output 05/18/17 05/19/17 05/19/17 18:59 06:59 18:59 Intake Total 830 Balance 830 Weight 113.398 kg Intake: IV 350 Sodium Chloride 0.9% 1, 350 000 ml @ 100 mls/hr IV . Q10H BETTE Rx#:[id number] Oral 480 Other: Voiding Method Toilet Toilet Toilet # Voids 2 1 - Exam Constitutional: No acute distress, conversant, pleasant Eyes: Anicteric sclerae, moist conjunctiva, no lid-lag, PERRLA ENMT: NC/AT,Oropharynx clear, no erythema, exudates Neck:Supple, FROM, no masses, or JVD, No carotid bruits; No thyromegaly Lungs: Clear to auscultation, Clear to percussion, Normal respiratory effort, no accessory muscle use Cardiovascular: Heart regular in rate and rhythm, No murmurs, gallops, or rubs no peripheral edema Abdominal: Soft Nontender, nom distended, no guarding, no rebound or rigidity, Normoactive bowel sounds No hepatomegaly, No splenomegaly, No palpable mass No abdominal wall hernia noted Skin: Normal temperature, tone, texture, turgor, No induration No subcutaneous nodules, No rash, lesions, No ulcers Extremities:No digital cyanosis No clubbing, Pedal pulses intact and symmetrical Radial pulses intact and symmetrical Normal gait and station, No calf tenderness Psychiatric: Alert and oriented to person, place and time, Appropriate affect Intact judgement Neuro: Muscles Strength 5/5 in all 4 extremities, Sensation to light touch grossly present throughout, Cranial nerves II-XII grossly intact. No focal sensory deficits - Labs CBC & Chem 7: 05/19/17 09:05 05/16/17 06:52 Labs: Abnormal Lab Results - Last 24 Hours (Table) 05/18/17 05/18/17 05/18/17 Range/Units 11:15 11:16 16:55 WBC 1.9 L* (3.8-10.6) k/uL RBC 2.38 L (3.80-5.40) m/uL Hgb 8.1 L (11.4-16.0) gm/dL Hct 25.2 L (34.0-46.0) % MCV 105.5 H (80.0-100.0) fL RDW 17.4 H (11.5-15.5) % Plt Count 52 L D (150-450) k/uL Neutrophils # 1.2 L (1.3-7.7) k/uL Lymphocytes # 0.3 L (1.0-4.8) k/uL POC Glucose (mg/dL) 266 H 129 H (75-99) mg/dL 05/18/17 05/19/17 05/19/17 Range/Units 20:26 07:04 09:05 WBC 2.0 L* (3.8-10.6) k/uL RBC 2.42 L (3.80-5.40) m/uL Hgb 8.0 L (11.4-16.0) gm/dL Hct 25.5 L (34.0-46.0) % MCV 105.6 H (80.0-100.0) fL RDW 17.6 H (11.5-15.5) % Plt Count 56 L (150-450) k/uL Neutrophils # 1.2 L (1.3-7.7) k/uL Lymphocytes # 0.4 L (1.0-4.8) k/uL POC Glucose (mg/dL) 185 H 114 H (75-99) mg/dL Microbiology - Last 24 Hours (Table) 05/12/17 20:00 Blood Culture - Final Blood No Growth after 144 hours Assessment and Plan Assessment: (1) Febrile neutropenia * Blood cultures negative * Urine cultures ESBL Klebsiella pneumoniae and E. coli * Continue Merrem WBC improving, ID Dr. Patel following (2)Sepsis present on admission * Secondary to UTI, patient afebrile and hemodynamically stable (3) UTI due to ESBL Klebsiella pneumoniae and E. coli * continue with merrem day 4 (4) Pancytopenia * Due to her underlying cancer and chemotherapy * Improving * monitro levels daily (5) NHL (non-Hodgkin's lymphoma) * s/p chemotherapy * Continue OP follow up and surveillance with oncology (6) Diabetes mellitus * BS controlled * Continue with levemir 15 units daily * Continue insulin sliding scale while inpatient (7) Factor 5 Leiden mutation, heterozygous/History of DVT (deep vein thrombosis) * Holding xarelto due to severe thrombocytopenia (8) VINH (obstructive sleep apnea) patient is not currently using positive airaway pressure therapy at home due to intolerance of the mask (9) DVT prophylaxis SCDs,
[2017-05-19 11:06] LABS: Glucose,Whole Blood 236 mg/dL (75-99)
[2017-05-19 17:44] LABS: Glucose,Whole Blood 143 mg/dL (75-99)
[2017-05-19 20:34] LABS: Glucose,Whole Blood 230 mg/dL (75-99)
[2017-05-19] MEDS: SERTRALINE 100 MG TAB PO SCH (21:20)
[2017-05-19] MEDS: INSULIN DETEMIR 100 UNIT/ML 10 ML VIAL SQ SCH (21:21)
[2017-05-20] MEDS: MEROPENEM 1 GM in SODIUM CHLORIDE 0.9% 100 ML IVPB SCH ×4 (00:53→23:39)
[2017-05-20] MEDS: SODIUM CHLORIDE 0.9% 1,000 ML IV SCH ×2 (04:08→17:03)
[2017-05-20] MEDS: LEVOTHYROXINE 137 MCG TAB PO SCH (05:51)
[2017-05-20 07:30] LABS: Glucose,Whole Blood 109 mg/dL (75-99)
[2017-05-20] MEDS: INSULIN ASPART 100 UNIT/ML 1 ML 10 ML VIAL SQ SCH ×4 (07:47→20:46)
[2017-05-20] MEDS: CHLORPHEN-HYDROcod 8-10mg/5ml 5 ML ORAL.SYRG PO SCH ×2 (08:44→20:45)
[2017-05-20] MEDS: ATORVASTATIN 40 MG TAB PO SCH (08:44)
[2017-05-20] MEDS: AMMONIUM LACTATE 12% CREAM 140 GM TUBE TOPICAL SCH ×2 (08:44→20:46)
[2017-05-20] MEDS: LINAGLIPTIN 5 MG TABLET PO SCH (08:45)
[2017-05-20] MEDS: valACYclovir HCL 1,000 MG TABLET PO SCH ×2 (08:45→20:45)
[2017-05-20] MEDS: OXYBUTYNIN XL 5 MG TAB.ER.24 PO SCH (08:45)
[2017-05-20] MEDS: PANTOPRAZOLE 40 MG TABLET PO SCH (08:46)
[2017-05-20] MEDS: LISINOPRIL 10 MG TAB PO SCH (08:46)
[2017-05-20 11:38] LABS: Glucose,Whole Blood 235 mg/dL (75-99)
--- NOTE | 2017-05-20 12:38 | P.PN ---
Subjective Progress Note Date: 05/20/17 Patient complaining of fatigued but is more upbeat today, reports that she has been up ambulating to the restroom, afebrile overnight. No acute events overnight. Objective - Vital Signs Vital signs: Vital Signs Temp 98 F 05/20/17 07:00 Pulse 71 05/20/17 07:00 Resp 20 05/20/17 07:00 BP 133/72 05/20/17 07:00 Pulse Ox 95 05/20/17 07:00 Intake & Output 05/19/17 05/20/17 05/20/17 18:59 06:59 18:59 Intake Total 900 1150 Balance 900 1150 Intake: IV 1050 Sodium Chloride 0.9% 1, 1050 000 ml @ 100 mls/hr IV . Q10H BETTE Rx#:[id number] Intake, IV Titration 900 100 Amount Meropenem 1 gm In Sodium 100 100 Chloride 0.9% 100 ml @ 100 mls/hr IVPB Q8HR BETTE Rx#:[id number] Sodium Chloride 0.9% 1, 800 000 ml @ 100 mls/hr IV . Q10H BETTE Rx#:[id number] Other: Voiding Method Toilet Toilet Toilet # Voids 1 - Exam Constitutional: No acute distress, conversant, pleasant Eyes: Anicteric sclerae, moist conjunctiva, no lid-lag, PERRLA ENMT: NC/AT,Oropharynx clear, no erythema, exudates Neck:Supple, FROM, no masses, or JVD, No carotid bruits; No thyromegaly Lungs: Clear to auscultation, Clear to percussion, Normal respiratory effort, no accessory muscle use Cardiovascular: Heart regular in rate and rhythm, No murmurs, gallops, or rubs no peripheral edema Abdominal: Soft Nontender, nom distended, no guarding, no rebound or rigidity, Normoactive bowel sounds No hepatomegaly, No splenomegaly, No palpable mass No abdominal wall hernia noted Skin: Normal temperature, tone, texture, turgor, No induration No subcutaneous nodules, No rash, lesions, No ulcers Extremities:No digital cyanosis No clubbing, Pedal pulses intact and symmetrical Radial pulses intact and symmetrical Normal gait and station, No calf tenderness Psychiatric: Alert and oriented to person, place and time, Appropriate affect Intact judgement Neuro: Muscles Strength 5/5 in all 4 extremities, Sensation to light touch grossly present throughout, Cranial nerves II-XII grossly intact. No focal sensory deficits - Labs CBC & Chem 7: 05/19/17 09:05 05/16/17 06:52 Labs: Abnormal Lab Results - Last 24 Hours (Table) 05/19/17 05/19/17 05/20/17 Range/Units 17:36 20:26 07:05 POC Glucose (mg/dL) 143 H 230 H 109 H (75-99) mg/dL 05/20/17 Range/Units 11:24 POC Glucose (mg/dL) 235 H (75-99) mg/dL Assessment and Plan Assessment: (1) Febrile neutropenia * Blood cultures negative * Urine cultures ESBL Klebsiella pneumoniae and E. coli * Continue Merrem WBC improving, ID Dr. Patel following awaiting clearance on when patient can be discharged home (2)Sepsis present on admission * Secondary to UTI, patient afebrile and hemodynamically stable (3) UTI due to ESBL Klebsiella pneumoniae and E. coli * continue with merrem day 5 (4) Pancytopenia * Due to her underlying cancer and chemotherapy * Improving * monitro levels daily (5) NHL (non-Hodgkin's lymphoma) * s/p chemotherapy * Continue OP follow up and surveillance with oncology (6) Diabetes mellitus * BS controlled * Continue with levemir 15 units daily * Continue insulin sliding scale while inpatient (7) Factor 5 Leiden mutation, heterozygous/History of DVT (deep vein thrombosis) * Holding xarelto due to severe thrombocytopenia (8) VINH (obstructive sleep apnea) patient is not currently using positive airaway pressure therapy at home due to intolerance of the mask (9) DVT prophylaxis SCDs,
[2017-05-20 17:43] LABS: Glucose,Whole Blood 160 mg/dL (75-99)
[2017-05-20 20:24] LABS: Glucose,Whole Blood 202 mg/dL (75-99)
[2017-05-20] MEDS: SERTRALINE 100 MG TAB PO SCH (20:45)
[2017-05-20] MEDS: INSULIN DETEMIR 100 UNIT/ML 10 ML VIAL SQ SCH (20:46)
[2017-05-20 22:12] VITALS: RESP 16
[2017-05-21] MEDS: SODIUM CHLORIDE 0.9% 1,000 ML IV SCH ×2 (05:57→07:34)
[2017-05-21] MEDS: LEVOTHYROXINE 137 MCG TAB PO SCH (05:57)
[2017-05-21 07:20] LABS: Glucose,Whole Blood 125 mg/dL (75-99)
[2017-05-21] MEDS: INSULIN ASPART 100 UNIT/ML 1 ML 10 ML VIAL SQ SCH (07:26)
[2017-05-21] MEDS: CHLORPHEN-HYDROcod 8-10mg/5ml 5 ML ORAL.SYRG PO SCH (07:40)
[2017-05-21] MEDS: PANTOPRAZOLE 40 MG TABLET PO SCH (07:40)
[2017-05-21] MEDS: OXYBUTYNIN XL 5 MG TAB.ER.24 PO SCH (07:40)
[2017-05-21] MEDS: LINAGLIPTIN 5 MG TABLET PO SCH (07:40)
[2017-05-21] MEDS: valACYclovir HCL 1,000 MG TABLET PO SCH (07:40)
[2017-05-21] MEDS: ATORVASTATIN 40 MG TAB PO SCH (07:41)
[2017-05-21] MEDS: MEROPENEM 1 GM in SODIUM CHLORIDE 0.9% 100 ML IVPB SCH (07:41)
[2017-05-21] MEDS: AMMONIUM LACTATE 12% CREAM 140 GM TUBE TOPICAL SCH (07:41)
[2017-05-21] MEDS: LISINOPRIL 10 MG TAB PO SCH (07:42)
[2017-05-21 07:50] VITALS: BP 119/54; PULSE 66; TEMP 97.6
--- NOTE | 2017-05-21 10:49 | P.DS ---
Providers Date of admission: 05/12/17 21:58 Expected date of discharge: 05/21/17 Attending physician: Jayde Mcgraw MD Consults: 05/15/17 15:24 Consult Physician Routine Consulting Provider: Pablo Patel Consult Reason/Comments: ESBL Do you want consulting provider notified?: Yes 05/12/17 21:30 Consult Physician Stat Consulting Provider: Forrest Balderrama Consult Reason/Comments: Neutropenic fever Do you want consulting provider notified?: Yes Primary care physician: Obdulia Jasso - Discharge Diagnosis(es) (1) Urinary tract infection Status: Acute (2) ESBL (extended spectrum beta-lactamase) producing bacteria infection Status: Acute Priority: High (3) Sepsis Status: Acute (4) Factor 5 Leiden mutation, heterozygous Status: Chronic (5) NHL (non-Hodgkin's lymphoma) Status: Chronic Priority: Medium (6) Pancytopenia Status: Acute Priority: Medium (7) Cold sore Status: Acute (8) Mucositis Status: Acute (9) Febrile neutropenia Status: Acute (10) Diabetes mellitus Status: Chronic Hospital Course: Patient is a 56 yo female with a hx of Non hodgkins lymphoma, DM 2, HTN, and morbid obesity who presented with a cough. In the emergency room she underwent an extensive evaluation. Her chest xray did not show any acute changes. However, she was found to have severe neutropenia and fevers. She was started on empiric cefepime and vanco. Blood cultures were obtained prior to starting Antibiotics. She was ultimately found to have ESBL Klebsiella pneumonia and E. Coli UTI. She was seen by oncology and had already received neulasta as an outpatient. ID was consulted and recommended continuing on the current course of antibiotics. She was also found to have severe mucocitis. On she was found to have a cold sore and was started on valtrex by ID. Her WBC count continued to improve. She continued to do well through her hospital course. She did take quite some time to recover her strength. She had been off her xarelto for quite some time, but due to recurrent pancytopenia with chemo therapy. She had completed her course of chemo and her platelets had continued to be over 50 and therefore her xarelto was resumed. ID had states thatshe could complete an oral course of levaquin and valtrex. She was determined stable for discharge home. She will see Dr. Balderrama on Jun 12 on 2017. She will see Dr. Jasso on 05/28/17. She was counseled that she should complete her entire antibiotic course. Patient seen and examined at bedside. No chest pain, SOB, nausea, or vomiting. Still feeling fatigued. Vital signs reviewed and stable. General: non toxic, no distress, appears at stated age Derm: warm, dry Head: atraumatic, normocephalic, symmetric Eyes: EOMI, no lid lag, anicteric sclera Mouth: no lip lesion, mucus membranes moist Cardiovascular: S1S2 reg, no murmur, positive posterior tibial pulse bilateral, Lungs: CTA bilateral, no rhonchi, no rales , no accessory muscle use Abdominal: soft, nontender to palpation, no guarding, no appreciable organomegaly Ext: no gross muscle atrophy, no edema, no contractures Neuro: CN II-XI grossly intact, no focal neuro deficits Psych: Alert, oriented, appropriate affect A total of 45 minutes of time were spent preparing this complex discharge summary . Pertinent Studies: CXR- NAP Procedures: None Patient Condition at Discharge: Stable Plan - Discharge Summary New Discharge Prescriptions: New Levofloxacin [Levaquin] 750 mg PO DAILY #7 tab valACYclovir HCL [Valacyclovir] 1,000 mg PO DAILY #14 tab CHLORPHEN-HYDROcod 8-10mg/5ml [Tussionex] 5 ml PO Q12H #120 ml Rivaroxaban [Xarelto] 20 mg PO DAILY #30 tab Continue Sertraline [Zoloft] 200 mg PO HS Atorvastatin [Lipitor] 40 mg PO DAILY Lisinopril 10 mg PO DAILY Levothyroxine Sodium [Synthroid] 137 mcg PO DAILY Cranberry/Vit C 4200mg 1 tab PO DAILY PRN PRN Reason: UTI SYMPTOMS Glimepiride [Amaryl] 2 mg PO BID Omeprazole [PriLOSEC] 10 mg PO DAILY Insulin Lispro [humaLOG Kwikpen] See Protocol SQ AC-TID PRN PRN Reason: Blood Sugar - High sitaGLIPtin PHOSPHATE [Januvia] 100 mg PO DAILY #30 tab Insulin Aspart Protam & Aspart [NovoLOG MIX 70-30 Flexpen] See Protocol SQ AC -TID PRN PRN Reason: Blood Sugar - High Acetaminophen/Diphenhydramine [Tylenol PM 500-25mg] 1 tab PO HS PRN PRN Reason: Insomnia oxyCODONE-APAP 10-325MG [Percocet 10-325 mg] 1 tab PO QID PRN PRN Reason: Pain Tolterodine ER [Detrol LA] 4 mg PO DAILY Loratadine 10 mg PO DAILY PRN PRN Reason: neulasta Diphenox-Atrop 2.5-0.025 mg [Lomotil] 2 tab PO QID PRN PRN Reason: Diarrhea Diazepam [Valium] 2 mg PO TID PRN #10 tab PRN Reason: Muscle Spasm Discontinued HYDROcodone/APAP 10-325MG [[place] 10-325] 1 tab PO Q4-6H PRN PRN Reason: Pain Fluconazole [Diflucan] 100 mg PO DAILY #6 tab Lidocaine Viscous [Xylocaine Viscous 2%] 30 ml PO Q4HR PRN 10 Days #1 bottle PRN Reason: mouth pain Discharge Medication List Sertraline [Zoloft] 200 mg PO HS 03/07/15 [History] Atorvastatin [Lipitor] 40 mg PO DAILY 02/10/16 [History] Lisinopril 10 mg PO DAILY 02/10/16 [History] Levothyroxine Sodium [Synthroid] 137 mcg PO DAILY 08/17/16 [History] Cranberry/Vit C 4200mg 1 tab PO DAILY PRN 12/19/16 [History] Glimepiride [Amaryl] 2 mg PO BID 12/19/16 [History] Insulin Lispro [humaLOG Kwikpen] See Protocol SQ AC-TID PRN 03/08/17 [History] Omeprazole [PriLOSEC] 10 mg PO DAILY 03/08/17 [History] sitaGLIPtin PHOSPHATE [Januvia] 100 mg PO DAILY #30 tab 03/13/17 [Rx] Acetaminophen/Diphenhydramine [Tylenol PM 500-25mg] 1 tab PO HS PRN 03/30/17 [ History] Diphenox-Atrop 2.5-0.025 mg [Lomotil] 2 tab PO QID PRN 03/30/17 [History] Insulin Aspart Protam & Aspart [NovoLOG MIX 70-30 Flexpen] See Protocol SQ AC- TID PRN 03/30/17 [History] Loratadine 10 mg PO DAILY PRN 03/30/17 [History] Tolterodine ER [Detrol LA] 4 mg PO DAILY 03/30/17 [History] oxyCODONE-APAP 10-325MG [Percocet 10-325 mg] 1 tab PO QID PRN 03/30/17 [History] Diazepam [Valium] 2 mg PO TID PRN #10 tab 04/03/17 [Rx] Levofloxacin [Levaquin] 750 mg PO DAILY #7 tab 05/17/17 [Rx] valACYclovir HCL [Valacyclovir] 1,000 mg PO DAILY #14 tab 05/17/17 [Rx] CHLORPHEN-HYDROcod 8-10mg/5ml [Tussionex] 5 ml PO Q12H #120 ml 05/21/17 [Rx] Rivaroxaban [Xarelto] 20 mg PO DAILY #30 tab 05/21/17 [Rx] Follow up Appointment(s)/Referral(s): Obdulia Jasso MD [Primary Care Provider] - 05/28/17 10:45 am Forrest Balderrama MD [STAFF PHYSICIAN] - 06/12/17 3:30 pm Patient Instructions/Handouts: Valacyclovir (By mouth), Levofloxacin (By mouth) , Rivaroxaban (By mouth), Hydrocodone/Chlorpheniramine (By mouth), Deep Venous Thrombosis (DC), Chronic Cough (DC), Neutropenia (DC) Activity/Diet/Wound Care/Special Instructions: diabetic diet Activity as tolerated You can resume your Xarelto Take all antibiotics until completion. Discharge Disposition: HOME SELF-CARE
== END 2017-05-21 12:25 | disposition home or self-care (01) | DRG 871 ==
LOC: EC 18:57 → 5ONC 21:58
PROVIDERS: ADMIT Internal Medicine; ATTEND Internal Medicine
DX: A41.9 Sepsis, unspecified organism (principal); D61.810 Antineoplastic chemotherapy induced pancytopenia; C85.99 Non-Hodgkin lymphoma, unspecified, extranodal and solid organ sites; D68.51 Activated protein C resistance; C82.10 Follicular lymphoma grade II, unspecified site; N39.0 Urinary tract infection, site not specified; B96.20 Unspecified Escherichia coli [E. coli] as the cause of diseases classified elsewhere; B96.1 Klebsiella pneumoniae [K. pneumoniae] as the cause of diseases classified elsewhere; E66.01 Morbid (severe) obesity due to excess calories; R13.10 Dysphagia, unspecified; K12.30 Oral mucositis (ulcerative), unspecified; B00.1 Herpesviral vesicular dermatitis; E03.9 Hypothyroidism, unspecified; E11.9 Type 2 diabetes mellitus without complications; G47.33 Obstructive sleep apnea (adult) (pediatric); E78.5 Hyperlipidemia, unspecified; I10 Essential (primary) hypertension; T45.1X5A Adverse effect of antineoplastic and immunosuppressive drugs, initial encounter; Z16.12 Extended spectrum beta lactamase (ESBL) resistance; Z79.4 Long term (current) use of insulin; Z79.899 Other long term (current) drug therapy; Z82.49 Family history of ischemic heart disease and other diseases of the circulatory system; Z83.2 Family history of diseases of the blood and blood-forming organs and certain disorders involving the immune mechanism; Z83.3 Family history of diabetes mellitus; Z84.1 Family history of disorders of kidney and ureter; Z86.718 Personal history of other venous thrombosis and embolism; Z90.710 Acquired absence of both cervix and uterus
CPT/HCPCS: 36415; 71020; 80048; 80053; 80202; 81003; 83605; 83735; 84100; 85025; 87040; 87077; 87086; 87186; 87502; 96360; 99284

== ENCOUNTER → 2017-05-24 | Outpatient (CLI) | payer MEDICARE | END | disposition home or self-care (01) | LOC: MMGSC 11:24 | PROVIDERS: ATTEND Family Medicine | DX: E11.9 Type 2 diabetes mellitus without complications (principal) | CPT/HCPCS: 36415; 83036 ==

== ENCOUNTER → 2018-05-23 | Outpatient (CLI) | payer MEDICARE ==
--- NOTE | 2018-05-23 15:20 | CT ---
EXAMINATION TYPE: CT lumbar spine wo con DATE OF EXAM: 05/23/2018 COMPARISON: None HISTORY: 57-year-old female Low back pain, no injury. History of lymphoma. TECHNIQUE: Contiguous axial scanning of the lumbar spine without IV contrast. Coronal and sagittal re constructions performed. CT DLP: 2038.3 mGycm Automated exposure control for dose reduction was used. FINDINGS: 3.3 cm fluid attenuating lesion posterior left kidney, likely cyst. Left common iliac vein stent noted. No prevertebral or paravertebral soft tissue abnormality. Osteopenia. Mild to moderate degenerative disc disease T10-T11, T11-T12, and T12-L1. Endplate sclerosis with bulging disc at L2-L3 and additional bulging disc at L5-S1. Hypertrophic facet arthropathy mid to lower lumbar spine with preserved alignment. Degenerative thinn ing of the interspinous ligaments mid to lower lumbar spine with abutment of the spinous processes at L3-L4. By CT, no evident canal compromise is identified. No acute fracture is seen. Vertebral body heights are maintained. On the right, mild neural foraminal narrowing is present at L3-L4, L4-L5, and L5-S1. On the left, there is moderate neuroforaminal stenoses at L2-L3, L3-L4, L4-L4 5, L5-S1. IMPRESSION: 1. OSTEOPENIA. NO VERTEBRAL COMPRESSION COLLAPSE OR MALALIGNMENT. 2. MILD TO MODERATE DEGENERATIVE DISC DISEASE. ADDITIONAL HYPERTROPHIC FACET ARTHROPATHY MID TO LOWER LUMBAR SPINE. 3. NO EVIDENT CANAL COMPROMISE BY CT. 4. VARIABLE MILD NEUROFORAMINAL STENOSES ON THE RIGHT AND MODERATE NEUROFORAMINAL STENOSIS ON THE LEF T OUTLINED ABOVE. 5. BAASTRUP'S DISEASE.
== END | disposition home or self-care (01) ==
LOC: RADCTMAIN 14:55
PROVIDERS: ATTEND Internal Medicine Hematology & Oncology
DX: C82.13 Follicular lymphoma grade II, intra-abdominal lymph nodes (principal); M85.88 Other specified disorders of bone density and structure, other site; M99.73 Connective tissue and disc stenosis of intervertebral foramina of lumbar region; M51.36 Other intervertebral disc degeneration, lumbar region; M46.96 Unspecified inflammatory spondylopathy, lumbar region
CPT/HCPCS: 72131

== ENCOUNTER 2018-06-07 11:48 | Inpatient (IN) | payer MEDICARE ==
--- NOTE | 2018-06-07 12:09 | ED ---
General Adult HPI - General Chief complaint: Dizziness Stated complaint: recheck/cancer pt Source: patient Mode of arrival: ambulatory Limitations: no limitations - Related Data Home Medications Medication Instructions Recorded Confirmed Sertraline [Zoloft] 200 mg PO BID 03/07/15 06/07/18 Atorvastatin [Lipitor] 40 mg PO DAILY 02/10/16 06/07/18 Levothyroxine Sodium [Synthroid] 137 mcg PO DAILY 08/17/16 06/07/18 Glimepiride [Amaryl] 2 mg PO BID 12/19/16 06/07/18 Diphenox-Atrop 2.5-0.025 mg 2 tab PO QID PRN 03/30/17 06/07/18 [Lomotil] Tolterodine ER [Detrol LA] 4 mg PO DAILY 03/30/17 06/07/18 Acyclovir 400 mg PO BID 06/07/18 06/07/18 Cholestyramine (with Sugar) 4 gm PO HS 06/07/18 06/07/18 [Cholestyramine Packet] Gabapentin [Neurontin] 300 mg PO HS 06/07/18 06/07/18 HYDROcodone/APAP 10-325MG [[place] 1 tab PO Q6H PRN 06/07/18 06/07/18 10-325] Lisinopril [Zestril] 20 mg PO DAILY 06/07/18 06/07/18 Nitrofurantoin Macrocrystal 100 mg PO BID 06/07/18 06/07/18 [Macrodantin] Omeprazole [PriLOSEC] 20 mg PO AC-BID 06/07/18 06/07/18 Ondansetron [Zofran] 4 mg PO Q6H PRN 06/07/18 06/07/18 Prochlorperazine [Compazine] 10 mg PO Q6H PRN 06/07/18 06/07/18 valACYclovir HCL [Valacyclovir] 1,000 mg PO TID 06/07/18 06/07/18 Previous Rx's Medication Instructions Recorded Rivaroxaban [Xarelto] 20 mg PO DAILY #30 tab 05/21/17 Allergies Allergy/AdvReac Type Severity Reaction Status Date / Time Anesthetics - Amide Type AdvReac Nausea & Verified 06/07/18 12:08 Vomiting & Diarrhea Anesthetics - Jonna Type- AdvReac Nausea & Verified 06/07/18 12:08 Parabens Vomiting & Diarrhea Review of Systems ROS Statement: Those systems with pertinent positive or pertinent negative responses have been documented in the HPI. ROS Other: All systems not noted in ROS Statement are negative. 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 History of Any Multi-Drug Resistant Organisms: ESBL Date of last positivie culture/infection: 05/12/17 MDRO Source:: ESBL URINE Past Surgical History: Adenoidectomy, Appendectomy, Back Surgery, Cholecystectomy, Hysterectomy, Orthopedic Surgery, Tonsillectomy Additional Past Surgical History / Comment(s): Recent abdominal mass biopsy x 2 , BMA, EGD/colonoscopy at [facility], bilateral carpal tunnel release, thyroidectomy (one tiny piece unable to remove), ORIF rt ankle, stents in LLE/ vascular stent, cervical surgery C4,C6, thyroidectomy Past Anesthesia/Blood Transfusion Reactions: Postoperative Nausea & Vomiting ( PONV) Additional Past Anesthesia/Blood Transfusion Reaction / Comment(s): blood transfusion(December 2015) "pt stated an hour after transfusion became very nauseated and had quit a bit of vomiting" Past Psychological History: No Psychological Hx Reported Smoking Status: Never smoker Past Alcohol Use History: None Reported Past Drug Use History: None Reported - Past Family History Mother Family Medical History: Diabetes Mellitus, Renal Disease Additional Family Medical History / Comment(s): Mother of kidney failure at the age of 69yrs. Father Family Medical History: Diabetes Mellitus Additional Family Medical History / Comment(s): Father of a "sugar coma" when he was 72 yrs old. Brother(s) Family Medical History: Cancer Sister(s) Family Medical History: Myocardial Infarction (CT) Additional Family Medical History / Comment(s): Patient has 3 sisters and 2 of them are diabetic. Son(s) Family Medical History: No Reported History (Patient has 4 sons no major medical problems) Additional Family Medical History / Comment(s): Patient has 4 sons with no major medical problems. Daughter(s) Family Medical History: Deep Vein Thrombosis (DVT) Additional Family Medical History / Comment(s): Patient has a daughter with DVT. General Exam Limitations: no limitations Course Vital Signs 06/07/18 11:53 Temperature 98.1 F Pulse Rate 82 Respiratory 18 Rate Blood Pressure 135/64 O2 Sat by Pulse 97 Oximetry Medical Decision Making - Medical Decision Making Dictation was produced using [employer] dictation software. please excuse any grammatical, word or spelling errors. Chief Complaint: 57-year-old female past medical and history of non-Hodgkin's lymphoma presents with abnormal outpatient labs and generalized fatigue. History of Present Illness: Patient is a 57-year-old female she was scheduled to receive chemotherapy yesterday however was canceled secondary to lab abnormalities. Patient states her blood levels were low. Patient states that her hemoglobin was low too low to proceed with chemotherapy. She is told to go the emergency department for symptoms were improving. Patient received chemotherapy was last month. Patient denies any nausea vomiting. Denies any dark stools. He has no pain complaints. The ROS documented in this emergency department record has been reviewed and confirmed by me. Those systems with pertinent positive or negative responses have been documented in the HPI. All other systems are other negative and/or noncontributory. PHYSICAL EXAM: General Impression: Alert and oriented x3, not in acute distress HEENT: Normocephalic atraumatic, extra-ocular movements intact, pupils equal and reactive to light bilaterally, mucous membranes moist. Cardiovascular: Heart regular rate and rhythm, S1&S2 audible, no murmurs, rubs or gallops Chest: Lungs clear to auscultation bilaterally, no rhonchi, no wheeze, no rales Abdomen: Bowel sounds present, abdomen soft, non-tender, non-distended, no organomegaly Musculoskeletal: Pulses present and equal in all extremities, no peripheral edema Motor: Power 5/5 bilaterally, no focal deficits noted Neurological: CN II-XII grossly intact, no focal motor or sensory deficits noted Skin: Intact with no visualized rashes Psych: Normal affect and mood ED course: 57-year-old female with past medical history of non-Hodgkin's formal presents with chief complaint of generalized fatigue. Vital signs upon arrival are within acceptable limits. Patient had reviewable labs in our electronic medical record system from earlier this month.Laboratory evaluation obtained. Patient leukopenia 0.5. Hemoglobin 10.7. Platelet count 51. Metabolic panel is grossly unremarkable. Urinalysis is negative. Patient given intravenous fluids she is reevaluated still very symptomatic. Given patient's degree of leukopenia and fatigue there is concerns of neutropenic sepsis. Blood cultures urine cultures obtained. Patient given vancomycin and Unasyn. Patient be admitted with oncology consultation. EKG interpretation: Ventricular rate 77, normal sinus rhythm, KY interval 170, QS 90, QTC 491. No KY prolongation, no QTC prolongation, no ST or T-wave changes noted. Overall, this EKG is unremarkable - Lab Data Result diagrams: 06/07/18 12:27 06/07/18 12:27 Lab Results 06/07/18 06/07/18 06/07/18 Range/Units 12:27 12:27 12:27 WBC 0.5 L* (3.8-10.6) k/uL RBC 3.13 L (3.80-5.40) m/uL Hgb 10.7 L (11.4-16.0) gm/dL Hct 31.1 L (34.0-46.0) % MCV 99.3 (80.0-100.0) fL MCH 34.0 (25.0-35.0) pg MCHC 34.3 (31.0-37.0) g/dL RDW 15.8 H (11.5-15.5) % Plt Count 51 L (150-450) k/uL Neutrophils # DICTAPHONE TYPIST Differential Comment Manual Slide Review Performed Polychromasia Present Anisocytosis (manual) Present Macrocytosis Slight Sodium 139 (137-145) mmol/L Potassium 4.0 (3.5-5.1) mmol/L Chloride 109 H (98-107) mmol/L Carbon Dioxide 27 (22-30) mmol/L Anion Gap 3 mmol/L BUN 12 (7-17) mg/dL Creatinine 0.58 (0.52-1.04) mg/dL Est GFR (CKD-EPI)AfAm >90 (>60 ml/min/1.73 sqM) Est GFR (CKD-EPI)NonAf >90 (>60 ml/min/1.73 sqM) Glucose 231 H (74-99) mg/dL Plasma Lactic Acid [place]aka (0.7-2.0) mmol/L Calcium 8.7 (8.4-10.2) mg/dL Magnesium 1.9 (1.6-2.3) mg/dL Total Bilirubin 2.1 H (0.2-1.3) mg/dL AST 42 H (14-36) U/L ALT 44 (9-52) U/L Alkaline Phosphatase 187 H (38-126) U/L Total Protein 5.0 L (6.3-8.2) g/dL Albumin 2.8 L (3.5-5.0) g/dL Urine Color Urine Appearance (Clear) Urine pH (5.0-8.0) Ur Specific [place] (1.001-1.035) Urine Protein (Negative) Urine Glucose (UA) (Negative) Urine Ketones (Negative) Urine Blood (Negative) Urine Nitrite (Negative) Urine Bilirubin (Negative) Urine Urobilinogen (<2.0) mg/dL Ur Leukocyte Esterase (Negative) Urine RBC (0-5) /hpf Urine WBC (0-5) /hpf Ur Squamous Epith Cells (0-4) /hpf Urine Mucus (None) /hpf Blood Type A Positive Blood Type Recheck CABO Indicated Antibody Screen NEGATIVE Spec Expiration Date 06/10/2018232606/07/18 06/07/18 Range/Units 12:27 12:27 WBC (3.8-10.6) k/uL RBC (3.80-5.40) m/uL Hgb (11.4-16.0) gm/dL Hct (34.0-46.0) % MCV (80.0-100.0) fL MCH (25.0-35.0) pg MCHC (31.0-37.0) g/dL RDW (11.5-15.5) % Plt Count (150-450) k/uL Neutrophils # Differential Comment Manual Slide Review Polychromasia Anisocytosis (manual) Macrocytosis Sodium (137-145) mmol/L Potassium (3.5-5.1) mmol/L Chloride (98-107) mmol/L Carbon Dioxide (22-30) mmol/L Anion Gap mmol/L BUN (7-17) mg/dL Creatinine (0.52-1.04) mg/dL Est GFR (CKD-EPI)AfAm (>60 ml/min/1.73 sqM) Est GFR (CKD-EPI)NonAf (>60 ml/min/1.73 sqM) Glucose (74-99) mg/dL Plasma Lactic Acid [place] 1.1 (0.7-2.0) mmol/L Calcium (8.4-10.2) mg/dL Magnesium (1.6-2.3) mg/dL Total Bilirubin (0.2-1.3) mg/dL AST (14-36) U/L ALT (9-52) U/L Alkaline Phosphatase (38-126) U/L Total Protein (6.3-8.2) g/dL Albumin (3.5-5.0) g/dL Urine Color Yellow Urine Appearance Cloudy H (Clear) Urine pH 6.5 (5.0-8.0) Ur Specific [place] 1.018 (1.001-1.035) Urine Protein Trace H (Negative) Urine Glucose (UA) 1+ H (Negative) Urine Ketones Trace H (Negative) Urine Blood Negative (Negative) Urine Nitrite Negative (Negative) Urine Bilirubin Negative (Negative) Urine Urobilinogen 12.0 (<2.0) mg/dL Ur Leukocyte Esterase Small H (Negative) Urine RBC 3 (0-5) /hpf Urine WBC 15 H (0-5) /hpf Ur Squamous Epith Cells 9 H (0-4) /hpf Urine Mucus Few H (None) /hpf Blood Type Blood Type Recheck Antibody Screen Spec Expiration Date Disposition Clinical Impression: Neutropenia Disposition: ADMITTED IP TO THIS HOSP Condition: Fair Referrals: Obdulia Jasso MD [Primary Care Provider] - 1-2 days Decision Time: 14:16
[2018-06-07 13:02] LABS: HCT 31.1 % (34.0-46.0); HGB 10.7 gm/dL (11.4-16.0); MCHC 34.3 g/dL (31.0-37.0); MCV 99.3 fL (80.0-100.0); Macrocytosis Slight; Mean Platelet Volume 8.9; Platelet Count 51 k/uL (150-450); RBC 3.13 m/uL (3.80-5.40); RDW 15.8 % (11.5-15.5)
[2018-06-07 13:13] LABS: ALT 44 U/L (9-52); AST 42 U/L (14-36); Albumin 2.8 g/dL (3.5-5.0); Alkaline Phosphatase 187 U/L (38-126); Anion Gap 3 mmol/L; Blood Urea Nitrogen 12 mg/dL (7-17); Calcium 8.7 mg/dL (8.4-10.2); Carbon Dioxide 27 mmol/L (22-30); Chloride 109 mmol/L (98-107); Glucose 231 mg/dL (74-99); Magnesium 1.9 mg/dL (1.6-2.3); Sodium 139 mmol/L (137-145); Total Bilirubin 2.1 mg/dL (0.2-1.3)
[2018-06-07 13:15] LABS: WBC 0.5 k/uL (3.8-10.6)
[2018-06-07] MEDS ORDERED: SODIUM CHLORIDE 0.9% 1,000 ML IV STA (13:22)
[2018-06-07 13:28] LABS: Anisocytosis (M) Present
[2018-06-07 13:29] LABS: Polychromasia Present
[2018-06-07 13:51] LABS: Appearance,Urine Cloudy (Clear); Bilirubin,Urine Negative (Negative); Blood,Urine Negative (Negative); Color,Urine Yellow; Glucose,Urine (UA) 1+ (Negative); Ketones,Urine Trace (Negative); Leukocyte Esterase,Urine Small (Negative); Mucus,Urine Few /hpf; Nitrite,Urine Negative (Negative); PH, Urine 6.5 (5.0-8.0); Protein,Urine Trace (Negative); RBC,Urine 3 /hpf (0-5); Specific Gravity,Urine 1.018 (1.001-1.035); Squamous Epithelial Cell,Urine 9 /hpf (0-4)
[2018-06-07] MEDS ORDERED: AMPICILLIN-SULBACTAM 3 GM in SODIUM CHLORIDE 0.9% 100 ML IVPB STA (14:10)
[2018-06-07] MEDS ORDERED: VANCOMYCIN 1,000 MG in SODIUM CHLORIDE 0.9% 250 ML IVPB STA (14:10)
[2018-06-07] MEDS ORDERED: HYDROcodone/APAP 5-325MG 1 EACH TAB PO PRN (14:12)
[2018-06-07] MEDS ORDERED: NALOXONE 0.4 MG/ML 1 ML VIAL IV PRN (14:12)
[2018-06-07] MEDS ORDERED: VANCOMYCIN 2,000 MG in SODIUM CHLORIDE 0.9% 500 ML 500 ML IVPB STA (14:18)
[2018-06-07] MEDS ORDERED: VANCOMYCIN IV PER PHARMACY 1 EACH MISC MISCELLANE PRN (14:33)
[2018-06-07] MEDS: SODIUM CHLORIDE 0.9% 1,000 ML IV SCH (15:02)
[2018-06-07] MEDS ORDERED: ONDANSETRON 4 MG TAB PO PRN (15:07)
[2018-06-07] MEDS ORDERED: PROCHLORPERAZINE 10 MG TAB PO PRN (15:07)
[2018-06-07] MEDS ORDERED: DIPHENOX-ATROP 2.5-0.025 MG 1 EACH TAB PO PRN (15:07)
--- NOTE | 2018-06-07 15:38 | XR ---
EXAMINATION TYPE: XR chest 2V DATE OF EXAM: 06/07/2018 COMPARISON: 05/12/2017 HISTORY: Shortness of breath TECHNIQUE: Frontal and lateral views of the chest are obtained. FINDINGS: Scattered senescent parenchymal changes noted. No evidence for infiltrate. No evidence for atelectasis. Heart size is stable. Mediastinal structures are stable and grossly unremarkable. No evidence for hilar prominence. Degenerative changes dorsal spine. IMPRESSION: 1. No evidence for acute pulmonary disease.
--- NOTE | 2018-06-07 15:49 | P.HPIM ---
History of Present Illness H&P Date: 06/07/18 Chief Complaint: Fatigue and weakness The patient is a 57-year-old female past medical history of recurrent stage IV non-Hodgkin's lymphoma currently on chemotherapy with Rituxan and bendamustine, she is status post cycle [address] Balderrama, type 2 diabetes with peripheral neuropathy, essential hypertension, dyslipidemia, history of factor V 5 Leyden deficiency and DVT currently on anticoagulation with Xarelto who presents to the ER via private vehicle with chief complaints of ongoing fatigue and weakness. The patient reports that she was scheduled to have her chemotherapy done yesterday however was canceled secondary to her neutropenia and she was subsequently instructed to follow-up in the ER her symptoms got worse. She does report a nonproductive cough and sore throat with subjective fevers and chills over the last week, along with mild chronic mid epigastric pain and nausea along with decreased appetite. She does report sick contacts in the home with urinary symptoms and sore throat. She denies any diarrhea or constipation. She does report urgency and nocturia and strong smelling urine but denies any dysuria or flank pain or suprapubic tenderness. In the ER she had a CBC CMP with noted pancytopenia WBC 0.5, hemoglobin 10.7, platelet 51. Blood sugar 231, vital signs are normal she was afebrile. Urinalysis showed trace ketones, leuk esterase positive with 15 urine WBCs. 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 History of Any Multi-Drug Resistant Organisms: ESBL Date of last positivie culture/infection: 05/12/17 MDRO Source:: ESBL URINE Past Surgical History: Adenoidectomy, Appendectomy, Back Surgery, Cholecystectomy, Hysterectomy, Orthopedic Surgery, Tonsillectomy Additional Past Surgical History / Comment(s): Recent abdominal mass biopsy x 2 , BMA, EGD/colonoscopy at [facility], bilateral carpal tunnel release, thyroidectomy (one tiny piece unable to remove), ORIF rt ankle, stents in LLE/ vascular stent, cervical surgery C4,C6, thyroidectomy Past Anesthesia/Blood Transfusion Reactions: Postoperative Nausea & Vomiting ( PONV) Additional Past Anesthesia/Blood Transfusion Reaction / Comment(s): blood transfusion(December 2015) "pt stated an hour after transfusion became very nauseated and had quit a bit of vomiting" Past Psychological History: No Psychological Hx Reported Smoking Status: Never smoker Past Alcohol Use History: None Reported Past Drug Use History: None Reported - Past Family History Mother Family Medical History: Diabetes Mellitus, Renal Disease Additional Family Medical History / Comment(s): Mother of kidney failure at the age of 69yrs. Father Family Medical History: Diabetes Mellitus Additional Family Medical History / Comment(s): Father of a "sugar coma" when he was 72 yrs old. Brother(s) Family Medical History: Cancer Sister(s) Family Medical History: Myocardial Infarction ([place]) Additional Family Medical History / Comment(s): Patient has 3 sisters and 2 of them are diabetic. Son(s) Family Medical History: No Reported History (Patient has 4 sons no major medical problems) Additional Family Medical History / Comment(s): Patient has 4 sons with no major medical problems. Daughter(s) Family Medical History: Deep Vein Thrombosis (DVT) Additional Family Medical History / Comment(s): Patient has a daughter with DVT. Medications and Allergies Home Medications Medication Instructions Recorded Confirmed Type Sertraline [Zoloft] 200 mg PO HS 03/07/15 06/08/18 History Atorvastatin [Lipitor] 40 mg PO DAILY 02/10/16 06/07/18 History Levothyroxine Sodium [Synthroid] 137 mcg PO DAILY 08/17/16 06/07/18 History Glimepiride [Amaryl] 2 mg PO BID 12/19/16 06/07/18 History Diphenox-Atrop 2.5-0.025 mg 2 tab PO QID PRN 03/30/17 06/07/18 History [Lomotil] Tolterodine ER [Detrol LA] 4 mg PO DAILY 03/30/17 06/07/18 History Rivaroxaban [Xarelto] 20 mg PO DAILY #30 tab 05/21/17 06/07/18 Rx Acyclovir 400 mg PO BID 06/07/18 06/07/18 History Cholestyramine (with Sugar) 4 gm PO HS 06/07/18 06/07/18 History [Cholestyramine Packet] Gabapentin [Neurontin] 300 mg PO HS 06/07/18 06/07/18 History HYDROcodone/APAP 10-325MG [[place] 1 tab PO Q6H PRN 06/07/18 06/07/18 History 10-325] Lisinopril [Zestril] 20 mg PO DAILY 06/07/18 06/07/18 History Nitrofurantoin Macrocrystal 100 mg PO BID 06/07/18 06/07/18 History [Macrodantin] Omeprazole [PriLOSEC] 20 mg PO AC-BID 06/07/18 06/07/18 History Ondansetron [Zofran] 4 mg PO Q6H PRN 06/07/18 06/07/18 History Prochlorperazine [Compazine] 10 mg PO Q6H PRN 06/07/18 06/07/18 History valACYclovir HCL [Valacyclovir] 1,000 mg PO TID 06/07/18 06/07/18 History Allergies Allergy/AdvReac Type Severity Reaction Status Date / Time Anesthetics - Amide Type AdvReac Nausea & Verified 06/07/18 12:08 Vomiting & Diarrhea Anesthetics - Jonna Type- AdvReac Nausea & Verified 06/07/18 12:08 Parabens Vomiting & Diarrhea oxycodone [From OxyContin] AdvReac Nausea & Verified 06/07/18 18:34 Vomiting Physical Exam Vitals: Vital Signs Temp Pulse Resp BP Pulse Ox 06/07/18 14:30 69 13 110/57 97 06/07/18 14:00 76 16 119/54 96 06/07/18 13:30 79 23 99/54 95 06/07/18 13:00 78 14 112/55 96 06/07/18 12:30 78 19 141/69 96 06/07/18 11:53 98.1 F 82 18 135/64 97 Intake and Output 06/07/18 06/07/18 06/07/18 06:59 14:59 22:59 Other: Weight 118.388 kg Constitutional: No acute distress, conversant, pleasant Eyes: Anicteric sclerae, moist conjunctiva, no lid-lag, PERRLA ENMT: NC/AT,Oropharynx clear, no erythema, exudates Neck:Supple, FROM, no masses, or JVD, No carotid bruits; No thyromegaly Lungs: Clear to auscultation, Clear to percussion, Normal respiratory effort, no accessory muscle use Cardiovascular: Heart regular in rate and rhythm, No murmurs, gallops, or rubs no peripheral edema Abdominal: Soft Nontender, nom distended, no guarding, no rebound or rigidity, Normoactive bowel sounds No hepatomegaly, No splenomegaly, No palpable mass No abdominal wall hernia noted Skin: Normal temperature, tone, texture, turgor, No induration No subcutaneous nodules, No rash, lesions, No ulcers Extremities:No digital cyanosis No clubbing, Pedal pulses intact and symmetrical Radial pulses intact and symmetrical Normal gait and station, No calf tenderness Psychiatric: Alert and oriented to person, place and time, Appropriate affect Intact judgement Neuro: Muscles Strength 5/5 in all 4 extremities, Sensation to light touch grossly present throughout, Cranial nerves II-XII grossly intact. No focal sensory deficits Results CBC & Chem 7: 06/08/18 08:25 06/08/18 08:25 Labs: Abnormal Lab Results - Last 24 Hours (Table) 06/07/18 06/07/18 06/07/18 Range/Units 12:27 12:27 12:27 WBC 0.5 L* (3.8-10.6) k/uL RBC 3.13 L (3.80-5.40) m/uL Hgb 10.7 L (11.4-16.0) gm/dL Hct 31.1 L (34.0-46.0) % RDW 15.8 H (11.5-15.5) % Plt Count 51 L (150-450) k/uL Chloride 109 H (98-107) mmol/L Glucose 231 H (74-99) mg/dL Total Bilirubin 2.1 H (0.2-1.3) mg/dL AST 42 H (14-36) U/L Alkaline Phosphatase 187 H (38-126) U/L Total Protein 5.0 L (6.3-8.2) g/dL Albumin 2.8 L (3.5-5.0) g/dL Urine Appearance Cloudy H (Clear) Urine Protein Trace H (Negative) Urine Glucose (UA) 1+ H (Negative) Urine Ketones Trace H (Negative) Ur Leukocyte Esterase Small H (Negative) Urine WBC 15 H (0-5) /hpf Ur Squamous Epith Cells 9 H (0-4) /hpf Urine Mucus Few H (None) /hpf Assessment and Plan Assessment: Chronic medical problems Obstructive sleep apnea Factor V Leyden deficiency History of DVT currently on anticoagulation Hypertension Dyslipidemia History of ESBL UTI currently on prophylactic antibiotics 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 (1) Antineoplastic chemotherapy induced pancytopenia Current Visit: No Status: Acute Priority: High Code(s): D61.810 - ANTINEOPLASTIC CHEMOTHERAPY INDUCED PANCYTOPENIA; T45.1X5A - ADVERSE EFFECT OF ANTINEOPLASTIC AND IMMUNOSUP DRUGS, INIT SNOMED Code(s): 044296981576289 (2) Type 2 diabetes mellitus with peripheral neuropathy Current Visit: Yes Status: Resolved Code(s): E11.42 - TYPE 2 DIABETES MELLITUS WITH DIABETIC POLYNEUROPATHY SNOMED Code(s): 24720098 (3) Neutropenia Current Visit: Yes Status: Acute Code(s): D70.9 - NEUTROPENIA, UNSPECIFIED SNOMED Code(s): 326985984 (4) Cough Current Visit: No Status: Acute Code(s): R05 - COUGH SNOMED Code(s): 76056931 (5) NHL (non-Hodgkin's lymphoma) Current Visit: No Status: Chronic Priority: Medium Code(s): C85.90 - NON- HODGKIN LYMPHOMA, UNSPECIFIED, UNSPECIFIED SITE SNOMED Code(s): 347490524 Plan: The patient is placed in observation with concern for possibly neutropenic fever after presenting with symptoms of fatigue and found to be pancytopenic. The patient was given empiric antibiotics with Unasyn and vancomycin in the ER, the patient is hemodynamically stable and afebrile at this point. Continue to monitor for fever we'll check a checks x-ray given her cough, obtain urine culture and blood cultures been ordered. The patient is maintained on her chronic home medications. Her blood sugars are noted to be elevated we'll obtain A1c initiate Accu-Cheks with correctional scale coverage. CODE STATUS: Full code Discussed plan of care with" patient Anticipate discharge 1-2 days DVT prophylaxis: On Xarelto
[2018-06-07 17:09] LABS: Glucose,Whole Blood 101 mg/dL (75-99)
[2018-06-07] MEDS: INSULIN ASPART 100 UNIT/ML 1 ML 10 ML VIAL SQ SCH ×2 (17:18→20:33)
--- NOTE | 2018-06-07 17:54 | P.CONS ---
History of Present Illness - Reason for Consult Consult date: 06/07/18 Lymphoma Requesting physician: Fabricio Zapata - Chief Complaint Subjective fevers and weakness. - History of Present Illness Nidhi was initially evaluated in October 2016, found to have a large abdominal & retroperitoneal mass, she was transferred to a tertiary care facility for work up, had core biopsy of mesenteric mass on 12/27/16 revealing Grade II Follicular Lymphoma, staging PET showed extensive involvement with lymphoma above & below diaphragm as well as suspicious lesion in the liver, stage IV-B, she is s/p cycles of R-CHOP with treatment follow up PET 80%-90% reduction in metabolic uptake! She is on Xarelto for known history of DVT factor V Leiden also has a history of breast mass with biopsy. She has received recent treatment with Rituxan and bendamustine, she is status post cycle 2, no GCSF on 05/10/18. Pt was in office yesterday for f/u, and was not feeling well, was still neutropenic and subjective fevers. Blood cultures and urinalysis was completed in office. When she was not improving overnight she presented to hospital for further evaluation. No fevers on admission. 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 History of Any Multi-Drug Resistant Organisms: ESBL Year Discovered:: 05/12/17 MDRO Source:: ESBL URINE Past Surgical History: Adenoidectomy, Appendectomy, Back Surgery, Cholecystectomy, Hysterectomy, Orthopedic Surgery, Tonsillectomy Additional Past Surgical History / Comment(s): Recent abdominal mass biopsy x 2 , BMA, EGD/colonoscopy at [facility], bilateral carpal tunnel release, thyroidectomy (one tiny piece unable to remove), ORIF rt ankle, stents in LLE/ vascular stent, cervical surgery C4,C6, thyroidectomy Past Anesthesia/Blood Transfusion Reactions: Postoperative Nausea & Vomiting ( PONV) Additional Past Anesthesia/Blood Transfusion Reaction / Comm: blood transfusion( December 2015) "pt stated an hour after transfusion became very nauseated and had quit a bit of vomiting" Past Psychological History: No Psychological Hx Reported Smoking Status: Never smoker Past Alcohol Use History: None Reported Past Drug Use History: None Reported - Past Family History Mother Family Medical History: Diabetes Mellitus, Renal Disease Additional Family Medical History / Comment(s): Mother of kidney failure at the age of 69yrs. Father Family Medical History: Diabetes Mellitus Additional Family Medical History / Comment(s): Father of a "sugar coma" when he was 72 yrs old. Brother(s) Family Medical History: Cancer Sister(s) Family Medical History: Myocardial Infarction ([place]) Additional Family Medical History / Comment(s): Patient has 3 sisters and 2 of them are diabetic. Son(s) Family Medical History: No Reported History (Patient has 4 sons no major medical problems) Additional Family Medical History / Comment(s): Patient has 4 sons with no major medical problems. Daughter(s) Family Medical History: Deep Vein Thrombosis (DVT) Additional Family Medical History / Comment(s): Patient has a daughter with DVT. Medications and Allergies Home Medications Medication Instructions Recorded Confirmed Type Sertraline [Zoloft] 200 mg PO BID 03/07/15 06/07/18 History Atorvastatin [Lipitor] 40 mg PO DAILY 02/10/16 06/07/18 History Levothyroxine Sodium [Synthroid] 137 mcg PO DAILY 08/17/16 06/07/18 History Glimepiride [Amaryl] 2 mg PO BID 12/19/16 06/07/18 History Diphenox-Atrop 2.5-0.025 mg 2 tab PO QID PRN 03/30/17 06/07/18 History [Lomotil] Tolterodine ER [Detrol LA] 4 mg PO DAILY 03/30/17 06/07/18 History Rivaroxaban [Xarelto] 20 mg PO DAILY #30 tab 05/21/17 06/07/18 Rx Acyclovir 400 mg PO BID 06/07/18 06/07/18 History Cholestyramine (with Sugar) 4 gm PO HS 06/07/18 06/07/18 History [Cholestyramine Packet] Gabapentin [Neurontin] 300 mg PO HS 06/07/18 06/07/18 History HYDROcodone/APAP 10-325MG [[place] 1 tab PO Q6H PRN 06/07/18 06/07/18 History 10-325] Lisinopril [Zestril] 20 mg PO DAILY 06/07/18 06/07/18 History Nitrofurantoin Macrocrystal 100 mg PO BID 06/07/18 06/07/18 History [Macrodantin] Omeprazole [PriLOSEC] 20 mg PO AC-BID 06/07/18 06/07/18 History Ondansetron [Zofran] 4 mg PO Q6H PRN 06/07/18 06/07/18 History Prochlorperazine [Compazine] 10 mg PO Q6H PRN 06/07/18 06/07/18 History valACYclovir HCL [Valacyclovir] 1,000 mg PO TID 06/07/18 06/07/18 History Allergies Allergy/AdvReac Type Severity Reaction Status Date / Time Anesthetics - Amide Type AdvReac Nausea & Verified 06/07/18 12:08 Vomiting & Diarrhea Anesthetics - Jonna Type- AdvReac Nausea & Verified 06/07/18 12:08 Parabens Vomiting & Diarrhea Physical Exam Vitals: Vital Signs Temp Pulse Resp BP Pulse Ox 06/07/18 16:00 98 F 70 18 117/69 99 06/07/18 15:30 68 22 126/62 98 06/07/18 14:30 69 13 110/57 97 06/07/18 14:00 76 16 119/54 96 06/07/18 13:30 79 23 99/54 95 06/07/18 13:00 78 14 112/55 96 06/07/18 12:30 78 19 141/69 96 06/07/18 11:53 98.1 F 82 18 135/64 97 Intake and Output 06/07/18 06/07/18 06/07/18 06:59 14:59 22:59 Other: Weight 118.388 kg Gen: Alert and oriented x3, NAD Head NC, NT Neck Supple, Trachea Midline Lungs: Diminished bibasilar, no increased effort Heart: Tachy Reg Abdomen Soft, ND, NT No Palpabble Adenopathy Ext no increased edema Neuro: non focal Psych calm and cooperative. Results CBC & Chem 7: 06/07/18 12:27 06/07/18 12:27 Labs: Abnormal Lab Results - Last 24 Hours (Table) 06/07/18 06/07/18 06/07/18 Range/Units 12:27 12:27 12:27 WBC 0.5 L* (3.8-10.6) k/uL RBC 3.13 L (3.80-5.40) m/uL Hgb 10.7 L (11.4-16.0) gm/dL Hct 31.1 L (34.0-46.0) % RDW 15.8 H (11.5-15.5) % Plt Count 51 L (150-450) k/uL Chloride 109 H (98-107) mmol/L Glucose 231 H (74-99) mg/dL Total Bilirubin 2.1 H (0.2-1.3) mg/dL AST 42 H (14-36) U/L Alkaline Phosphatase 187 H (38-126) U/L Total Protein 5.0 L (6.3-8.2) g/dL Albumin 2.8 L (3.5-5.0) g/dL Urine Appearance Cloudy H (Clear) Urine Protein Trace H (Negative) Urine Glucose (UA) 1+ H (Negative) Urine Ketones Trace H (Negative) Ur Leukocyte Esterase Small H (Negative) Urine WBC 15 H (0-5) /hpf Ur Squamous Epith Cells 9 H (0-4) /hpf Urine Mucus Few H (None) /hpf Chest x-ray: report reviewed Assessment and Plan Plan: Assessment and Recommendations: 1. Grade 2 follicular lymphoma - Status post last treatment cycle with cycle 2 of rituxan and bendamustine. No GCSF - Scheduled for cycle 3, on june 13, 2018 2. Pancytopenia: Secondary to Chemotherapy Neutropenia: -Initiation of Zarxio today and daily - Await arana cultures UA and Blood Cultures - Broad SPectrum antibiotics Vanco and Cefepime Thrombocytopenia: - Monitor daily and hold Xarelto if platlets are less than 50K - Transfusion if bleeding under 50K or if under 10 Anemia: Transfuse hemoglobin less than 7, stable today 10.7 Continue Supportive care and await full work-up. Thank you for allowing us to participate in care of your patient.
[2018-06-07 18:50] VITALS: BMI 43.8
[2018-06-07 20:20] LABS: Glucose,Whole Blood 174 mg/dL (75-99)
[2018-06-07] MEDS: FILGRASTIM-SNDZ 480 MCG/0.8 ML SYRINGE SQ SCH (20:33)
[2018-06-07] MEDS: NITROFURANTOIN MONOHYD/M-CRYST 100 MG CAP PO SCH (20:33)
[2018-06-07] MEDS: SERTRALINE 100 MG TAB PO SCH (20:33)
[2018-06-07] MEDS: GABAPENTIN 300 MG CAP PO SCH (20:33)
[2018-06-07] MEDS: GLIMEPIRIDE 2 MG TAB PO SCH (20:33)
[2018-06-07] MEDS: ACYCLOVIR 200 MG CAP PO SCH (20:33)
[2018-06-07] MEDS: CHOLESTYRAMINE (WITH SUGAR) 4 GM PACKET PO SCH (20:41)
[2018-06-07] MEDS ORDERED: VANCOMYCIN 2,000 MG in SODIUM CHLORIDE 0.9% 500 ML 500 ML IVPB SCH (23:00)
[2018-06-07] MEDS: HYDROcodone/APAP 10-325MG 1 EACH TAB PO PRN (23:17)
[2018-06-08] MEDS: SODIUM CHLORIDE 0.9% 1,000 ML IV SCH ×2 (03:55→21:15)
[2018-06-08 07:24] LABS: Glucose,Whole Blood 144 mg/dL (75-99)
[2018-06-08] MEDS: HYDROcodone/APAP 10-325MG 1 EACH TAB PO PRN (07:40)
[2018-06-08] MEDS: INSULIN ASPART 100 UNIT/ML 1 ML 10 ML VIAL SQ SCH ×3 (07:41→21:15)
[2018-06-08 08:59] LABS: Anisocytosis Slight; HCT 27.1 % (34.0-46.0); HGB 9.5 gm/dL (11.4-16.0); MCH 35.3 pg (25.0-35.0); MCHC 34.9 g/dL (31.0-37.0); MCV 101.2 fL (80.0-100.0); Macrocytosis Slight; Mean Platelet Volume 8.4; RBC 2.68 m/uL (3.80-5.40); RDW 16.3 % (11.5-15.5)
[2018-06-08] MEDS ORDERED: RIVAROXABAN 20 MG TAB PO SCH (09:00)
[2018-06-08 09:07] LABS: WBC 0.7 k/uL (3.8-10.6)
[2018-06-08] MEDS: GLIMEPIRIDE 2 MG TAB PO SCH ×2 (09:29→21:15)
[2018-06-08] MEDS: NITROFURANTOIN MONOHYD/M-CRYST 100 MG CAP PO SCH ×2 (09:29→21:16)
[2018-06-08] MEDS: PANTOPRAZOLE 40 MG TABLET PO SCH (09:29)
[2018-06-08] MEDS: OXYBUTYNIN XL 5 MG TAB.ER.24 PO SCH (09:29)
[2018-06-08] MEDS: ATORVASTATIN 40 MG TAB PO SCH (09:29)
[2018-06-08] MEDS: LISINOPRIL 20 MG TAB PO SCH (09:29)
[2018-06-08] MEDS: SERTRALINE 100 MG TAB PO SCH ×3 (09:29→21:16)
[2018-06-08] MEDS: LEVOTHYROXINE 137 MCG TAB PO SCH (09:30)
[2018-06-08] MEDS: ACYCLOVIR 200 MG CAP PO SCH ×2 (09:30→21:15)
[2018-06-08 09:31] LABS: ALT 40 U/L (9-52); AST 31 U/L (14-36); Albumin 2.5 g/dL (3.5-5.0); Alkaline Phosphatase 151 U/L (38-126); Anion Gap 0 mmol/L; Blood Urea Nitrogen 11 mg/dL (7-17); Calcium 8.4 mg/dL (8.4-10.2); Carbon Dioxide 26 mmol/L (22-30); Chloride 112 mmol/L (98-107); Glucose 191 mg/dL (74-99); Sodium 138 mmol/L (137-145); Total Bilirubin 1.6 mg/dL (0.2-1.3); Total Protein 4.6 g/dL (6.3-8.2)
[2018-06-08 11:45] LABS: Glucose,Whole Blood 293 mg/dL (75-99)
--- NOTE | 2018-06-08 11:57 | P.PN ---
Subjective Progress Note Date: 06/08/18 Principal diagnosis: The patient is a 57-year-old female with a recurrence of her non- Hodgkin's grade 2 follicular lymphoma stage IV B with metastasis above and below the diaphragm as well as suspicious liver lesion that was admitted with concern for neutropenic fever after presenting with chemotherapy induced pancytopenia and a WBC count 0.5. She was initially started on vancomycin and Unasyn, she has remained afebrile. Oncology Dr. Kim carroll was consulted and the patient was initiated on Zarxio for her neutropenia. Urine and blood cultures are ordered and are pending, chest x-ray was clear of any acute pulmonary disease or signs of infection. Patient doing well complain of fatigue and some vague epigastric discomfort. Her appetite is diminished. Continues to be afebrile Objective - Vital Signs Vital signs: Vital Signs Temp 97.6 F 06/08/18 07:41 Pulse 95 06/08/18 07:41 Resp 18 06/08/18 07:41 BP 150/79 06/08/18 07:41 Pulse Ox 95 06/08/18 07:41 Intake & Output 06/07/18 06/08/18 06/08/18 18:59 06:59 18:59 Intake Total 1300 Balance 1300 Weight 118.388 kg Intake: Intake, IV Titration 1300 Amount Sodium Chloride 0.9% 1, 800 000 ml @ 80 mls/hr IV . [id number] [facility] Rx#:[id number] Vancomycin 2,000 mg In 500 Sodium Chloride 0.9% 500 ml 500 ml @ 167 mls/hr IVPB Q12HR [facility] Rx#: [id number] - Exam Constitutional: No acute distress, conversant, pleasant Eyes: Anicteric sclerae, moist conjunctiva, no lid-lag, PERRLA ENMT: NC/AT,Oropharynx clear, no erythema, exudates Neck:Supple, FROM, no masses, or JVD, No carotid bruits; No thyromegaly Lungs: Clear to auscultation, Clear to percussion, Normal respiratory effort, no accessory muscle use Cardiovascular: Heart regular in rate and rhythm, No murmurs, gallops, or rubs no peripheral edema Abdominal: Soft Nontender, nom distended, no guarding, no rebound or rigidity, Normoactive bowel sounds No hepatomegaly, No splenomegaly, No palpable mass No abdominal wall hernia noted Skin: Normal temperature, tone, texture, turgor, No induration No subcutaneous nodules, No rash, lesions, No ulcers Extremities:No digital cyanosis No clubbing, Pedal pulses intact and symmetrical Radial pulses intact and symmetrical Normal gait and station, No calf tenderness Psychiatric: Alert and oriented to person, place and time, Appropriate affect Intact judgement Neuro: Muscles Strength 5/5 in all 4 extremities, Sensation to light touch grossly present throughout, Cranial nerves II-XII grossly intact. No focal sensory deficits - Labs CBC & Chem 7: 06/08/18 08:25 06/08/18 08:25 Labs: Abnormal Lab Results - Last 24 Hours (Table) 06/07/18 06/07/18 06/07/18 Range/Units 12:27 12:27 12:27 WBC 0.5 L* (3.8-10.6) k/uL RBC 3.13 L (3.80-5.40) m/uL Hgb 10.7 L (11.4-16.0) gm/dL Hct 31.1 L (34.0-46.0) % MCV (80.0-100.0) fL MCH (25.0-35.0) pg RDW 15.8 H (11.5-15.5) % Plt Count 51 L (150-450) k/uL Chloride 109 H (98-107) mmol/L Glucose 231 H (74-99) mg/dL POC Glucose (mg/dL) (75-99) mg/dL Total Bilirubin 2.1 H (0.2-1.3) mg/dL AST 42 H (14-36) U/L Alkaline Phosphatase 187 H (38-126) U/L Total Protein 5.0 L (6.3-8.2) g/dL Albumin 2.8 L (3.5-5.0) g/dL Urine Appearance Cloudy H (Clear) Urine Protein Trace H (Negative) Urine Glucose (UA) 1+ H (Negative) Urine Ketones Trace H (Negative) Ur Leukocyte Esterase Small H (Negative) Urine WBC 15 H (0-5) /hpf Ur Squamous Epith Cells 9 H (0-4) /hpf Urine Mucus Few H (None) /hpf 06/07/18 06/07/18 06/08/18 Range/Units 17:07 20:19 07:22 WBC (3.8-10.6) k/uL RBC (3.80-5.40) m/uL Hgb (11.4-16.0) gm/dL Hct (34.0-46.0) % MCV (80.0-100.0) fL MCH (25.0-35.0) pg RDW (11.5-15.5) % Plt Count (150-450) k/uL Chloride (98-107) mmol/L Glucose (74-99) mg/dL POC Glucose (mg/dL) 101 H 174 H 144 H (75-99) mg/dL Total Bilirubin (0.2-1.3) mg/dL AST (14-36) U/L Alkaline Phosphatase (38-126) U/L Total Protein (6.3-8.2) g/dL Albumin (3.5-5.0) g/dL Urine Appearance (Clear) Urine Protein (Negative) Urine Glucose (UA) (Negative) Urine Ketones (Negative) Ur Leukocyte Esterase (Negative) Urine WBC (0-5) /hpf Ur Squamous Epith Cells (0-4) /hpf Urine Mucus (None) /hpf 06/08/18 06/08/18 Range/Units 08:25 08:25 WBC 0.7 L* (3.8-10.6) k/uL RBC 2.68 L (3.80-5.40) m/uL Hgb 9.5 L (11.4-16.0) gm/dL Hct 27.1 L (34.0-46.0) % MCV 101.2 H (80.0-100.0) fL MCH 35.3 H (25.0-35.0) pg RDW 16.3 H (11.5-15.5) % Plt Count 37 L (150-450) k/uL Chloride 112 H (98-107) mmol/L Glucose 191 H (74-99) mg/dL POC Glucose (mg/dL) (75-99) mg/dL Total Bilirubin 1.6 H (0.2-1.3) mg/dL AST (14-36) U/L Alkaline Phosphatase 151 H (38-126) U/L Total Protein 4.6 L (6.3-8.2) g/dL Albumin 2.5 L (3.5-5.0) g/dL Urine Appearance (Clear) Urine Protein (Negative) Urine Glucose (UA) (Negative) Urine Ketones (Negative) Ur Leukocyte Esterase (Negative) Urine WBC (0-5) /hpf Ur Squamous Epith Cells (0-4) /hpf Urine Mucus (None) /hpf Microbiology - Last 24 Hours (Table) 06/07/18 12:27 Urine Culture - Preliminary Urine,Clean Catch Assessment and Plan (1) Antineoplastic chemotherapy induced pancytopenia Narrative/Plan: * Status post 2 cycles with Rituxan and bendamustine * Initiated on Zarxio for her neutropenia * Hemoglobin currently stable at 9.5 today * Platelets dropping to 37 today without any overt signs of bleeding Current Visit: No Status: Acute Priority: High Code(s): D61.810 - ANTINEOPLASTIC CHEMOTHERAPY INDUCED PANCYTOPENIA; T45.1X5A - ADVERSE EFFECT OF ANTINEOPLASTIC AND IMMUNOSUP DRUGS, INIT SNOMED Code(s): 490997766457024 (2) Type 2 diabetes mellitus with peripheral neuropathy Narrative/Plan: * A1c pending * Continue Accucheck with correctional scale coverage Current Visit: Yes Status: Resolved Code(s): E11.42 - TYPE 2 DIABETES MELLITUS WITH DIABETIC POLYNEUROPATHY SNOMED Code(s): 32178165 (3) Neutropenia Narrative/Plan: * Initiated on Zarxio yesterday and currently receiving a daily right Current Visit: Yes Status: Acute Code(s): D70.9 - NEUTROPENIA, UNSPECIFIED SNOMED Code(s): 195463669 (4) Cough Current Visit: No Status: Acute Code(s): R05 - COUGH SNOMED Code(s): 76301044 (5) NHL (non-Hodgkin's lymphoma) Current Visit: No Status: Chronic Priority: Medium Code(s): C85.90 - NON- HODGKIN LYMPHOMA, UNSPECIFIED, UNSPECIFIED SITE SNOMED Code(s): 352363893 Plan: Anticipated discharge 1-2 days
[2018-06-08 18:46] LABS: Glucose,Whole Blood 56 mg/dL (75-99)
[2018-06-08 18:46] LABS: Hemoglobin A1C 6.2 % (4.0-6.0)
[2018-06-08 18:46] LABS: Glucose,Whole Blood 134 mg/dL (75-99)
[2018-06-08 18:46] LABS: Glucose,Whole Blood 97 mg/dL (75-99)
[2018-06-08 20:15] LABS: Glucose,Whole Blood 171 mg/dL (75-99)
[2018-06-08] MEDS ORDERED: VANCOMYCIN 2,000 MG in SODIUM CHLORIDE 0.9% 500 ML 500 ML IVPB ONE (21:00)
[2018-06-08] MEDS ORDERED: VANCOMYCIN IV PER PHARMACY 1 EACH MISC MISCELLANE PRN (21:07)
[2018-06-08] MEDS: FILGRASTIM-SNDZ 480 MCG/0.8 ML SYRINGE SQ SCH (21:13)
[2018-06-08] MEDS: GABAPENTIN 300 MG CAP PO SCH (21:15)
[2018-06-08] MEDS: CHOLESTYRAMINE (WITH SUGAR) 4 GM PACKET PO SCH (21:15)
--- NOTE | 2018-06-08 23:57 | P.PN ---
Subjective Progress Note Date: 06/08/18 Principal diagnosis: Pancytopenia rule out sepsis Platlet count is less than 50K today, will hold Xarelto. Objective - Vital Signs Vital signs: Vital Signs Temp 97.9 F 06/08/18 19:55 Pulse 70 06/08/18 19:55 Resp 18 06/08/18 19:55 BP 106/68 06/08/18 19:55 Pulse Ox 95 06/08/18 19:55 Intake & Output 06/08/18 06/08/18 06/09/18 06:59 18:59 06:59 Intake Total 1300 400 Balance 1300 400 Intake: Intake, IV Titration 1300 Amount Sodium Chloride 0.9% 1, 800 000 ml @ 80 mls/hr IV . [id number] [facility] Rx#:[id number] Vancomycin 2,000 mg In 500 Sodium Chloride 0.9% 500 ml 500 ml @ 167 mls/hr IVPB Q12HR [facility] Rx#: [id number] Oral 400 Other: # Voids 1 - Exam Gen: Alert and oriented x3, NAD Head NC, NT Neck Supple, Trachea Midline Lungs: Diminished bibasilar, no increased effort Heart: Tachy Reg Abdomen Soft, ND, NT No Palpabble Adenopathy Ext no increased edema Neuro: non focal Psych calm and cooperative. - Labs CBC & Chem 7: 06/09/18 06:54 06/08/18 08:25 Labs: Abnormal Lab Results - Last 24 Hours (Table) 06/07/18 06/08/18 06/08/18 Range/Units 12:27 07:22 08:25 WBC 0.7 L* (3.8-10.6) k/uL RBC 2.68 L (3.80-5.40) m/uL Hgb 9.5 L (11.4-16.0) gm/dL Hct 27.1 L (34.0-46.0) % MCV 101.2 H (80.0-100.0) fL MCH 35.3 H (25.0-35.0) pg RDW 16.3 H (11.5-15.5) % Plt Count 37 L (150-450) k/uL Chloride (98-107) mmol/L Glucose (74-99) mg/dL POC Glucose (mg/dL) 144 H (75-99) mg/dL Hemoglobin A1c 6.2 H (4.0-6.0) % Total Bilirubin (0.2-1.3) mg/dL Alkaline Phosphatase (38-126) U/L Total Protein (6.3-8.2) g/dL Albumin (3.5-5.0) g/dL 06/08/18 06/08/18 06/08/18 Range/Units 08:25 11:41 16:07 WBC (3.8-10.6) k/uL RBC (3.80-5.40) m/uL Hgb (11.4-16.0) gm/dL Hct (34.0-46.0) % MCV (80.0-100.0) fL MCH (25.0-35.0) pg RDW (11.5-15.5) % Plt Count (150-450) k/uL Chloride 112 H (98-107) mmol/L Glucose 191 H (74-99) mg/dL POC Glucose (mg/dL) 293 H 56 L (75-99) mg/dL Hemoglobin A1c (4.0-6.0) % Total Bilirubin 1.6 H (0.2-1.3) mg/dL Alkaline Phosphatase 151 H (38-126) U/L Total Protein 4.6 L (6.3-8.2) g/dL Albumin 2.5 L (3.5-5.0) g/dL 06/08/18 06/08/18 Range/Units 17:12 20:13 WBC (3.8-10.6) k/uL RBC (3.80-5.40) m/uL Hgb (11.4-16.0) gm/dL Hct (34.0-46.0) % MCV (80.0-100.0) fL MCH (25.0-35.0) pg RDW (11.5-15.5) % Plt Count (150-450) k/uL Chloride (98-107) mmol/L Glucose (74-99) mg/dL POC Glucose (mg/dL) 134 H 171 H (75-99) mg/dL Hemoglobin A1c (4.0-6.0) % Total Bilirubin (0.2-1.3) mg/dL Alkaline Phosphatase (38-126) U/L Total Protein (6.3-8.2) g/dL Albumin (3.5-5.0) g/dL Microbiology - Last 24 Hours (Table) 06/07/18 14:46 Blood Culture - Preliminary Blood No Growth after 24 hours 06/07/18 12:27 Urine Culture - Preliminary Urine,Clean Catch Assessment and Plan Plan: Assessment and Recommendations: 1. Grade 2 follicular lymphoma - Status post last treatment cycle with cycle 2 of rituxan and bendamustine. No GCSF - Scheduled for cycle 3, on june 13, 2018 2. Pancytopenia: Secondary to Chemotherapy Neutropenia: -Initiation of Zarxio today and daily - Await arana cultures UA and Blood Cultures (neg this fat, prelim on urin gram neg bacilli) - Broad SPectrum antibiotics Vanco and Cefepime Thrombocytopenia: - Monitor daily and hold Xarelto if platlets are less than 50K, placed on hold today - Transfusion if bleeding under 50K or if under 10 Anemia: Transfuse hemoglobin less than 7, stable today 10.7 Continue Supportive care and await full work-up. Thank you for allowing us to participate in care of your patient.
[2018-06-09] MEDS: CEFEPIME 2 GM in SODIUM CHLORIDE 0.9% 50 ML IVPB SCH ×3 (01:53→17:49)
[2018-06-09] MEDS: HYDROcodone/APAP 10-325MG 1 EACH TAB PO PRN ×2 (03:35→19:12)
[2018-06-09] MEDS: SODIUM CHLORIDE 0.9% 1,000 ML IV SCH ×2 (03:42→17:49)
[2018-06-09] MEDS: LEVOTHYROXINE 137 MCG TAB PO SCH (06:31)
[2018-06-09] MEDS: VANCOMYCIN 1,750 MG in SODIUM CHLORIDE 0.9% 500 ML 500 ML IVPB SCH ×2 (06:31→18:30)
[2018-06-09 07:07] LABS: Glucose,Whole Blood 155 mg/dL (75-99)
[2018-06-09 07:46] LABS: Anisocytosis Slight; HGB 9.2 gm/dL (11.4-16.0); MCH 34.6 pg (25.0-35.0); MCHC 34.1 g/dL (31.0-37.0); MCV 101.4 fL (80.0-100.0); Macrocytosis Slight; Mean Platelet Volume 8.5; RBC 2.66 m/uL (3.80-5.40); RDW 16.3 % (11.5-15.5)
[2018-06-09 07:48] LABS: Platelet Count 39 k/uL (150-450); WBC 0.6 k/uL (3.8-10.6)
[2018-06-09] MEDS: INSULIN ASPART 100 UNIT/ML 1 ML 10 ML VIAL SQ SCH ×4 (08:04→20:49)
[2018-06-09 08:17] LABS: Platelet Count 37 k/uL (150-450)
[2018-06-09 08:18] LABS: Poikilocytosis (M) Present; Polychromasia Present
--- NOTE | 2018-06-09 08:43 | CONS ---
CONSULTATION DATE OF SERVICE: 06/08/2018. REASON FOR CONSULTATION: Neutropenic sepsis. HISTORY OF PRESENT ILLNESS: The patient is a 57-year-old female with a past medical history significant for grade 2 follicular lymphoma with evidence of extensive involvement both below and above the diaphragm, stage IV disease for which the patient has been on chemotherapy. The patient is status post cycle 2 of Rituxan and Bendamustine on 05/10/2018. The patient was seen in the Oncology office the day before presenting to the hospital. The patient has not been feeling well. She has been complaining of fever with chills and denies not feeling well. The patient did have blood and urine cultures obtained in the office. The patient did have persistent symptoms and no improvement. She presented to the hospital on 06/07/2018. The patient denies having headache or significant URI symptom with very minimal cough not bringing up any sputum. No chest pain. Slight nausea, but no abdominal pain. Did have some diarrhea. Stool for C difficile was checked which came back negative. With these symptoms, the patient was evaluated by the ER physician. On arrival to the ER, the patient has been afebrile. The patient white count has been low at 0.5. Repeat is 0.7. UA was mildly positive with small leukocyte esterase, 15 WBC. A stool for C difficile has been negative. Chest x-ray was negative for any acute infiltrate. The patient did receive a dose of Unasyn and vancomycin. She was admitted to the hospital. Infectious Disease was consulted for further recommendation regarding antibiotic therapy. REVIEW OF SYSTEMS: Positive points have been mentioned in the HPI. The rest of the 14 systems have been negative. MEDICAL HISTORY: Grade II follicular lymphoma, stage IVB. Angina, diabetes mellitus, DVT, factor 5 Leiden deficiency, hypertension, hyperlipidemia, previous history of ESBL E coli urinary tract infection. PAST SURGICAL HISTORY: Adenoidectomy, appendectomy and back surgery, cholecystectomy, hysterectomy, tonsillectomy, . The patient did have a MediPort in the left chest wall. SOCIAL HISTORY: No history of smoking, drinking, or drug use. FAMILY HISTORY: Mother with history of diabetes and of renal failure at age of 69 and father with history of diabetes. Mother history of cancer. ALLERGIES: INCLUDE ANESTHETICS AND OXYCODONE. MEDICATIONS: Include the patient is currently on [place], Zovirax, Lipitor, Neurontin, Amaryl, NovoLog, Zestril, Macrobid and Zofran, Protonix, Compazine, Xarelto, Zoloft. PHYSICAL EXAMINATION: Blood pressure is 106/68 with a pulse of 72, temperature 97.9. She is 95% on room air. General description is a middle aged female lying in bed in no distress. No tachypnea or accessory muscles of respiration use. HEENT: Shows slight pallor. No scleral icterus. Oral mucosal membranes are dry. No pharyngeal erythema or thrush. Neck: Trachea central. No thyromegaly. Lungs unlabored breathing. Clear to auscultation anteriorly. No wheeze or crackles. Heart S1, S2. Regular rate and rhythm. ABDOMEN: Soft, no tenderness. No guarding. No rigidity. EXTREMITIES: No edema of feet. SKIN examination: No rash or mass palpable. NEUROLOGICAL: Patient is awake, alert, oriented times three. Mood and affect normal. LABS: Hemoglobin 9.5, white count 0.7. Admission white count 0.5. BUN of 9, creatinine 0.62, bilirubin 1.6. Rest of liver enzymes are normal. Urine was mildly positive. Stool for C. dif has been negative. Chest x-ray report negative. DIAGNOSTIC IMPRESSION AND PLAN: Patient presented to the hospital with fever in this patient who does have underlying Neutropenia from her chemo with the last chemo on 05/03/2018. The patient did mention she did have a MediPort that was accessed at our [facility] office with dry cough, blood. The patient possible source of this fever could be a urinary tract infection as the patient did have mildly positive UA versus MediPort site infection that was recently assessed though the MediPort site itself does not look with any inflammation. PLAN: 1. We will add cefepime 2 g q.8 hours and vancomycin pharmacy to dose while watching the kidney function and Vanco trough closely. 2. IV fluid. 3. Depending upon clinical response as well as cultures, we will adjust medication further if needed. Thank you for this consultation. Will follow this patient along with you. MMODL / IJN: [id number] /
[2018-06-09] MEDS: GLIMEPIRIDE 2 MG TAB PO SCH ×2 (09:57→20:49)
[2018-06-09] MEDS: LISINOPRIL 20 MG TAB PO SCH (09:57)
[2018-06-09] MEDS: ATORVASTATIN 40 MG TAB PO SCH (09:57)
[2018-06-09] MEDS: OXYBUTYNIN XL 5 MG TAB.ER.24 PO SCH (09:57)
[2018-06-09] MEDS: PANTOPRAZOLE 40 MG TABLET PO SCH (09:58)
[2018-06-09] MEDS: ACYCLOVIR 200 MG CAP PO SCH ×2 (09:58→20:49)
--- NOTE | 2018-06-09 10:58 | P.PN ---
Subjective Progress Note Date: 06/09/18 Principal diagnosis: The patient is a 57-year-old female with a recurrence of her non- Hodgkin's grade 2 follicular lymphoma stage IV B with metastasis above and below the diaphragm as well as suspicious liver lesion that was admitted with concern for neutropenic fever after presenting with chemotherapy induced pancytopenia and a WBC count 0.5. She was initially started on vancomycin and Unasyn, she has remained afebrile. Oncology Dr. Kim carroll was consulted and the patient was initiated on Zarxio for her neutropenia. Urine and blood cultures are ordered and are pending, chest x-ray was clear of any acute pulmonary disease or signs of infection. Patient doing well complain of fatigue, her appetite seems to be returning. She continues to be afebrile Objective - Vital Signs Vital signs: Vital Signs Temp 98.4 F 06/09/18 08:00 Pulse 68 06/09/18 08:00 Resp 18 06/09/18 08:00 BP 120/60 06/09/18 08:00 Pulse Ox 98 06/09/18 08:00 Intake & Output 06/08/18 06/09/18 06/09/18 18:59 06:59 18:59 Intake Total 1740 Balance 1740 Intake: Intake, IV Titration 800 Amount Sodium Chloride 0.9% 1, 800 000 ml @ 80 mls/hr IV . [id number] [facility] Rx#:[id number] Oral 940 Other: # Voids 3 - Exam Constitutional: No acute distress, conversant, pleasant Eyes: Anicteric sclerae, moist conjunctiva, no lid-lag, PERRLA ENMT: NC/AT,Oropharynx clear, no erythema, exudates Neck:Supple, FROM, no masses, or JVD, No carotid bruits; No thyromegaly Lungs: Clear to auscultation, Clear to percussion, Normal respiratory effort, no accessory muscle use Cardiovascular: Heart regular in rate and rhythm, No murmurs, gallops, or rubs no peripheral edema Abdominal: Soft Nontender, nom distended, no guarding, no rebound or rigidity, Normoactive bowel sounds No hepatomegaly, No splenomegaly, No palpable mass No abdominal wall hernia noted Skin: Normal temperature, tone, texture, turgor, No induration No subcutaneous nodules, No rash, lesions, No ulcers Extremities:No digital cyanosis No clubbing, Pedal pulses intact and symmetrical Radial pulses intact and symmetrical Normal gait and station, No calf tenderness Psychiatric: Alert and oriented to person, place and time, Appropriate affect Intact judgement Neuro: Muscles Strength 5/5 in all 4 extremities, Sensation to light touch grossly present throughout, Cranial nerves II-XII grossly intact. No focal sensory deficits - Labs CBC & Chem 7: 06/09/18 06:54 06/08/18 08:25 Labs: Abnormal Lab Results - Last 24 Hours (Table) 06/07/18 06/08/18 06/08/18 Range/Units 12:27 08:25 11:41 WBC (3.8-10.6) k/uL RBC (3.80-5.40) m/uL Hgb (11.4-16.0) gm/dL Hct (34.0-46.0) % MCV (80.0-100.0) fL RDW (11.5-15.5) % Plt Count 37 L (150-450) k/uL POC Glucose (mg/dL) 293 H (75-99) mg/dL Hemoglobin A1c 6.2 H (4.0-6.0) % 06/08/18 06/08/18 06/08/18 Range/Units 16:07 17:12 20:13 WBC (3.8-10.6) k/uL RBC (3.80-5.40) m/uL Hgb (11.4-16.0) gm/dL Hct (34.0-46.0) % MCV (80.0-100.0) fL RDW (11.5-15.5) % Plt Count (150-450) k/uL POC Glucose (mg/dL) 56 L 134 H 171 H (75-99) mg/dL Hemoglobin A1c (4.0-6.0) % 06/09/18 06/09/18 Range/Units 06:54 07:06 WBC 0.6 L* (3.8-10.6) k/uL RBC 2.66 L (3.80-5.40) m/uL Hgb 9.2 L (11.4-16.0) gm/dL Hct 27.0 L (34.0-46.0) % MCV 101.4 H (80.0-100.0) fL RDW 16.3 H (11.5-15.5) % Plt Count 39 L (150-450) k/uL POC Glucose (mg/dL) 155 H (75-99) mg/dL Hemoglobin A1c (4.0-6.0) % Microbiology - Last 24 Hours (Table) 06/07/18 14:46 Blood Culture - Preliminary Blood No Growth after 24 hours Assessment and Plan (1) Antineoplastic chemotherapy induced pancytopenia Narrative/Plan: * Status post 2 cycles with Rituxan and bendamustine * Initiated on Zarxio for her neutropenia * Hemoglobin currently stable at 9.2 today * Platelets dincreasing marginally to 39 today without any overt signs of bleeding * Xarelto held Current Visit: No Status: Acute Priority: High Code(s): D61.810 - ANTINEOPLASTIC CHEMOTHERAPY INDUCED PANCYTOPENIA; T45.1X5A - ADVERSE EFFECT OF ANTINEOPLASTIC AND IMMUNOSUP DRUGS, INIT SNOMED Code(s): 529135842730870 (2) Type 2 diabetes mellitus with peripheral neuropathy Narrative/Plan: * A1c pending * Continue Accucheck with correctional scale coverage Current Visit: Yes Status: Resolved Code(s): E11.42 - TYPE 2 DIABETES MELLITUS WITH DIABETIC POLYNEUROPATHY SNOMED Code(s): 98446331 (3) Neutropenia Narrative/Plan: * Initiated on Zarxio yesterday and currently receiving a daily right * Patient initiated on vancomycin and cefepime per ID Current Visit: Yes Status: Acute Code(s): D70.9 - NEUTROPENIA, UNSPECIFIED SNOMED Code(s): 457710305 (4) Cough Current Visit: No Status: Acute Code(s): R05 - COUGH SNOMED Code(s): 97264861 (5) NHL (non-Hodgkin's lymphoma) Current Visit: No Status: Chronic Priority: Medium Code(s): C85.90 - NON- HODGKIN LYMPHOMA, UNSPECIFIED, UNSPECIFIED SITE SNOMED Code(s): 797650317 Plan: Anticipated discharge 1-2 days
[2018-06-09] MEDS: FILGRASTIM-SNDZ 480 MCG/0.8 ML SYRINGE SQ SCH (12:02)
[2018-06-09 12:19] LABS: Glucose,Whole Blood 119 mg/dL (75-99)
[2018-06-09 13:00] LABS: Poikilocytosis (M) Present
--- NOTE | 2018-06-09 14:46 | P.PN ---
Subjective Progress Note Date: 06/09/18 Principal diagnosis: Pancytopenia rule out sepsis Remains afebrile. Subjective fevers chills. Diarrhea has resolved. Urine Culture positive for gram neg bacilli Objective - Vital Signs Vital signs: Vital Signs Temp 98.4 F 06/09/18 08:00 Pulse 68 06/09/18 08:00 Resp 18 06/09/18 08:00 BP 120/60 06/09/18 08:00 Pulse Ox 98 06/09/18 08:00 Intake & Output 06/08/18 06/09/18 06/09/18 18:59 06:59 18:59 Intake Total 1740 Balance 1740 Intake: Intake, IV Titration 800 Amount Sodium Chloride 0.9% 1, 800 000 ml @ 80 mls/hr IV . [id number] [facility]TE Rx#:[id number] Oral 940 Other: # Voids 3 - Exam Gen: Alert and oriented x3, NAD Head NC, NT Neck Supple, Trachea Midline Lungs: Diminished bibasilar, no increased effort Heart: Tachy Reg Abdomen Soft, ND, NT No Palpabble Adenopathy Ext no increased edema Neuro: non focal Psych calm and cooperative. - Labs CBC & Chem 7: 06/09/18 06:54 06/08/18 08:25 Labs: Abnormal Lab Results - Last 24 Hours (Table) 06/07/18 06/08/18 06/08/18 Range/Units 12:27 08:25 16:07 WBC (3.8-10.6) k/uL RBC (3.80-5.40) m/uL Hgb (11.4-16.0) gm/dL Hct (34.0-46.0) % MCV (80.0-100.0) fL RDW (11.5-15.5) % Plt Count 37 L (150-450) k/uL POC Glucose (mg/dL) 56 L (75-99) mg/dL Hemoglobin A1c 6.2 H (4.0-6.0) % 06/08/18 06/08/18 06/09/18 Range/Units 17:12 20:13 06:54 WBC 0.6 L* (3.8-10.6) k/uL RBC 2.66 L (3.80-5.40) m/uL Hgb 9.2 L (11.4-16.0) gm/dL Hct 27.0 L (34.0-46.0) % MCV 101.4 H (80.0-100.0) fL RDW 16.3 H (11.5-15.5) % Plt Count 39 L (150-450) k/uL POC Glucose (mg/dL) 134 H 171 H (75-99) mg/dL Hemoglobin A1c (4.0-6.0) % 06/09/18 06/09/18 Range/Units 07:06 12:14 WBC (3.8-10.6) k/uL RBC (3.80-5.40) m/uL Hgb (11.4-16.0) gm/dL Hct (34.0-46.0) % MCV (80.0-100.0) fL RDW (11.5-15.5) % Plt Count (150-450) k/uL POC Glucose (mg/dL) 155 H 119 H (75-99) mg/dL Hemoglobin A1c (4.0-6.0) % Microbiology - Last 24 Hours (Table) 06/07/18 12:27 Urine Culture - Preliminary Urine,Clean Catch Gram Neg Bacilli 06/07/18 14:46 Blood Culture - Preliminary Blood No Growth after 24 hours Assessment and Plan Plan: Assessment and Recommendations: 1. Grade 2 follicular lymphoma - Status post last treatment cycle with cycle 2 of rituxan and bendamustine. No GCSF - Scheduled for cycle 3, on june 13, 2018 - Continue treatment hold until acute infection is resolved and cbc recovers. 2. Pancytopenia: Secondary to Chemotherapy Neutropenia: -Continue Zarxio daily - Await finalized arana cultures UA and Blood Cultures (neg this fat, prelim on urine gram neg bacilli) - Broad Spectrum antibiotics Vanco and Cefepime - ID Following Thrombocytopenia: - Monitor daily and hold Xarelto if platlets are less than 50K, placed on hold today - Transfusion if bleeding under 50K or if under 10 Anemia: Transfuse hemoglobin less than 7, stable today 10.7 3. UTI: - Continue on Cefepime and management with Infectious disease and primary - Continue on GCSF daily - Monitor CBC daily Continue Supportive care and await full work-up. Thank you for allowing us to participate in care of your patient.
[2018-06-09 17:11] LABS: Glucose,Whole Blood 156 mg/dL (75-99)
[2018-06-09] MEDS: ONDANSETRON 4 MG/2 ML VIAL IVP PRN (19:27)
[2018-06-09 20:41] LABS: Glucose,Whole Blood 287 mg/dL (75-99)
[2018-06-09] MEDS: GABAPENTIN 300 MG CAP PO SCH (20:48)
[2018-06-09] MEDS: CHOLESTYRAMINE (WITH SUGAR) 4 GM PACKET PO SCH (20:48)
[2018-06-09] MEDS: SERTRALINE 100 MG TAB PO SCH (20:49)
--- NOTE | 2018-06-10 00:16 | PN ---
PROGRESS NOTE DATE OF SERVICE: 06/09/2018. REASON FOR FOLLOW UP: Neutropenic sepsis. INTERVAL HISTORY: The patient is currently afebrile. She is breathing comfortably. Denies having any chest pain. No cough. No abdominal pain. She did complain of some diarrhea. The patient did have stool for C difficile. remains to be negative. PHYSICAL EXAMINATION: Blood pressure 122/72 with a pulse of 72, temperature 98.3. She is 96% on room air. General description is a middle-aged female lying in bed in no distress. Respiratory system: Unlabored breathing. Clear to auscultation anteriorly. Heart S1, S2. Regular rate and rhythm. ABDOMEN: Soft, no tenderness. Extremities: No edema of the feet. LABS: The patient urine showing a gram-negative blood culture has been negative so far. White count is normal at 0.6. DIAGNOSTIC IMPRESSION AND PLAN: Patient admitted to the hospital with neutropenic sepsis. The patient's urine showing a gram-negative. We will keep the patient on cefepime as a blood culture negative and no gram-positive has been grown. We will discontinue the vancomycin. Monitor clinical course closely. Continue supportive care. MMODL / IJN: [id number] /
[2018-06-10] MEDS: CEFEPIME 2 GM in SODIUM CHLORIDE 0.9% 50 ML IVPB SCH ×3 (02:00→17:41)
[2018-06-10] MEDS: SODIUM CHLORIDE 0.9% 1,000 ML IV SCH (03:28)
[2018-06-10] MEDS: LEVOTHYROXINE 137 MCG TAB PO SCH (06:46)
[2018-06-10 07:10] LABS: Glucose,Whole Blood 99 mg/dL (75-99)
[2018-06-10 07:22] LABS: HCT 28.7 % (34.0-46.0); HGB 9.8 gm/dL (11.4-16.0); MCH 33.9 pg (25.0-35.0); MCV 99.6 fL (80.0-100.0); Macrocytosis Slight; Mean Platelet Volume 8.4; Platelet Count 46 k/uL (150-450); RBC 2.89 m/uL (3.80-5.40); RDW 15.8 % (11.5-15.5)
[2018-06-10 07:29] LABS: WBC 0.9 k/uL (3.8-10.6)
[2018-06-10] MEDS: INSULIN ASPART 100 UNIT/ML 1 ML 10 ML VIAL SQ SCH ×4 (08:12→20:13)
[2018-06-10 08:18] LABS: Poikilocytosis (M) Present
[2018-06-10] MEDS: ACYCLOVIR 200 MG CAP PO SCH ×2 (08:19→20:12)
[2018-06-10] MEDS: ATORVASTATIN 40 MG TAB PO SCH (08:19)
[2018-06-10] MEDS: PANTOPRAZOLE 40 MG TABLET PO SCH (08:19)
[2018-06-10] MEDS: GLIMEPIRIDE 2 MG TAB PO SCH ×2 (08:20→20:12)
[2018-06-10] MEDS: OXYBUTYNIN XL 5 MG TAB.ER.24 PO SCH (08:20)
[2018-06-10] MEDS: LISINOPRIL 20 MG TAB PO SCH (08:20)
[2018-06-10] MEDS: FILGRASTIM-SNDZ 480 MCG/0.8 ML SYRINGE SQ SCH (09:02)
[2018-06-10] MEDS: HYDROcodone/APAP 10-325MG 1 EACH TAB PO PRN ×2 (10:42→20:18)
[2018-06-10 12:32] LABS: Glucose,Whole Blood 152 mg/dL (75-99)
--- NOTE | 2018-06-10 15:58 | P.PN ---
Subjective Progress Note Date: 06/10/18 The patient is a 57 y/o female with a hx of factor V leiden w/ multiple DVTs ( On Xarelto), with recurrence of her 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 She was initially started on vancomycin and Unasyn and remained afebrile. Oncology was consulted and the patient was initiated on Zarxio for her neutropenia. Urine and blood cultures were ordered. ID was also consulted and the patient was switched to Vancomycin and Cefepime. Urine cultures grew GN bacilli and the patient was thereby resumed on the Cefepime while the Vanco was DCed. The patient was seen and examined at the bedside. She endorsed mild nausea but otherwise denied fever, chills, cough, diarrhea, chest pain, or SOB. The patient also endorsed 1 month history of increased urinary frequency with urgency and leakage. Objective - Vital Signs Vital signs: Vital Signs Temp 98.3 F 06/10/18 15:00 Pulse 71 06/10/18 15:00 Resp 16 06/10/18 15:00 BP 102/54 06/10/18 15:00 Pulse Ox 94 L 06/10/18 15:00 Intake & Output 06/09/18 06/10/18 06/10/18 18:59 06:59 18:59 Intake Total 1340 Balance 1340 Intake: Intake, IV Titration 800 Amount Sodium Chloride 0.9% 1, 800 000 ml @ 80 mls/hr IV . [id number] [facility] Rx#:[id number] Oral 540 Other: # Voids 1 4 1 - Exam General: Non-toxic, in no acute distress, appears stated age, morbidly obese HEENT: NC/AT, anicteric sclerae, moist conjunctiva, no lid-lag, PERRLA Cardiovascular: S1/S2 wnl, no murmurs, rubs, or gallops Lungs: Clear to auscultation, normal respiratory effort, no accessory muscle use Abdominal: Soft, non-tender, non-distended, no guarding, rebound, or rigidity Skin: Warm, dry Extremities: No edema or contractures Psychiatric: Alert and oriented to person, place and time, appropriate affect Neuro: CN II-XII grossly intact, Strength 5/5 in all 4 extremities, Speech intact, Sensation to light touch grossly intact throughout - Labs CBC & Chem 7: 06/10/18 06:40 06/10/18 06:40 Labs: Abnormal Lab Results - Last 24 Hours (Table) 06/09/18 06/09/18 06/10/18 Range/Units 17:08 20:39 06:40 WBC 0.9 L* (3.8-10.6) k/uL RBC 2.89 L (3.80-5.40) m/uL Hgb 9.8 L (11.4-16.0) gm/dL Hct 28.7 L (34.0-46.0) % RDW 15.8 H (11.5-15.5) % Plt Count 46 L (150-450) k/uL POC Glucose (mg/dL) 156 H 287 H (75-99) mg/dL 06/10/18 Range/Units 12:20 WBC (3.8-10.6) k/uL RBC (3.80-5.40) m/uL Hgb (11.4-16.0) gm/dL Hct (34.0-46.0) % RDW (11.5-15.5) % Plt Count (150-450) k/uL POC Glucose (mg/dL) 152 H (75-99) mg/dL Microbiology - Last 24 Hours (Table) 06/07/18 12:27 Urine Culture - Final Urine,Clean Catch Citrobacter farmeri 06/07/18 14:46 Blood Culture - Preliminary Blood No Growth after 48 hours Assessment and Plan Plan: Chemotherapy induced pancytopenia, WBCs improved from 0.6 to 0.9, plt improved from 39 to 46 -Hematology following, patient on Zarxio -Xarelto being held -Hgb stable at 9.8 Gram Negative Bacilli on Urine culture -ID recs appreciated -C/w Cefepime for now -F/u Blood cultures Type 2 DM -RAFAL with FS -C/w Amaryl Factor V leiden -Xarelto being held Hypothyroidism -C/w Levothyroxine HTN -Resume home meds Hx of HSV -C/w antiviral prophylaxis HLD -C/w Lipitor DVT//GI prophylaxis -IPCDs -No indication for GI prophylaxis Discussed with: Patient Anticipated discharge date: 06/12/[address]: Home A total of 35 minutes was spent on the care of this complex patient more than 50 % of the time was spent in counseling and care coordination. Time with Patient: Greater than 30
[2018-06-10 17:23] LABS: Glucose,Whole Blood 240 mg/dL (75-99)
--- NOTE | 2018-06-10 17:25 | P.PN ---
Subjective Progress Note Date: 06/10/18 Principal diagnosis: neutropenic sepsis, lymphoma Pt seen in f/u, still really tired, appetite is poor, no fever, vomiting, cough , chest pain, she did have BC return positive, on abx, she also had a suspicious urine. Pt c/o 1 month incontinence of urine, she has no bladder control, she noted foul urine odor on admit, denied dysuria, hematuria, she is ambulating in the room. No other c/o on a 10 point ROS. Objective - Vital Signs Vital signs: Vital Signs Temp 98.3 F 06/10/18 15:00 Pulse 71 06/10/18 15:00 Resp 16 06/10/18 15:00 BP 102/54 06/10/18 15:00 Pulse Ox 94 L 06/10/18 15:00 Intake & Output 06/09/18 06/10/18 06/10/18 18:59 06:59 18:59 Intake Total 1340 Balance 1340 Intake: Intake, IV Titration 800 Amount Sodium Chloride 0.9% 1, 800 000 ml @ 80 mls/hr IV . [id number] [facility] Rx#:[id number] Oral 540 Other: # Voids 1 4 1 - Constitutional General appearance: Present: cooperative, no acute distress, obese - EENT Eyes: Present: anicteric sclerae, EOMI ENT: Present: normal oropharynx - Respiratory Respiratory: bilateral: CTA - Cardiovascular Rhythm: regular Heart sounds: normal: S1, S2 Abnormal Heart Sounds: Absent: systolic murmur, diastolic murmur, rub, S3 Gallop , S4 Gallop, click, other - Peripheral edema leg Peripheral Edema: bilateral: Trace - Gastrointestinal General gastrointestinal: Present: normal bowel sounds, soft. Absent: absent bowel sounds, decreased bowel sounds, distended, hepatomegaly, hyperactive bowel sounds, organomegaly, rigid, scaphoid, splenomegaly, tenderness, umbilical hernia, ventral hernia - Integumentary Integumentary: Present: pale - Neurologic Neurologic: Present: CNII-XII intact - Musculoskeletal Musculoskeletal: Present: generalized weakness, strength equal bilaterally - Psychiatric Psychiatric: Present: A&O x's 3, appropriate affect, intact judgment & insight - Labs CBC & Chem 7: 06/10/18 06:40 06/10/18 06:40 Labs: Abnormal Lab Results - Last 24 Hours (Table) 06/09/18 06/10/18 06/10/18 Range/Units 20:39 06:40 12:20 WBC 0.9 L* (3.8-10.6) k/uL RBC 2.89 L (3.80-5.40) m/uL Hgb 9.8 L (11.4-16.0) gm/dL Hct 28.7 L (34.0-46.0) % RDW 15.8 H (11.5-15.5) % Plt Count 46 L (150-450) k/uL POC Glucose (mg/dL) 287 H 152 H (75-99) mg/dL Microbiology - Last 24 Hours (Table) 06/07/18 14:46 Blood Culture - Preliminary Blood No Growth after 72 hours 06/07/18 12:27 Urine Culture - Final Urine,Clean Catch Citrobacter farmeri Assessment and Plan (1) Urinary tract infection Narrative/Plan: ID has been consulted. Due to pt symptoms of incontinence of urine x 1 mo may consider Urology consult if symptoms do not improve with treatment of UTI Current Visit: Yes Status: Acute Priority: High Code(s): N39.0 - URINARY TRACT INFECTION, SITE NOT SPECIFIED SNOMED Code(s): 87687934 (2) Antineoplastic chemotherapy induced pancytopenia Narrative/Plan: Cont GCSF for low WBC/ANC No PRBCs for Hgb 9.8 Plt 46,000 cont to hold anticoagulation CBC daily Current Visit: Yes Status: Acute Priority: High Code(s): D61.810 - ANTINEOPLASTIC CHEMOTHERAPY INDUCED PANCYTOPENIA; T45.1X5A - ADVERSE EFFECT OF ANTINEOPLASTIC AND IMMUNOSUP DRUGS, INIT SNOMED Code(s): 326403618912672 (3) NHL (non-Hodgkin's lymphoma) Narrative/Plan: Pt just recently had a dose of Rit/Bendeka. Her treatment will be held until she has recovered from UTI Current Visit: Yes Status: Chronic Priority: Medium Code(s): C85.90 - NON- HODGKIN LYMPHOMA, UNSPECIFIED, UNSPECIFIED SITE SNOMED Code(s): 771090575
[2018-06-10 20:04] LABS: Glucose,Whole Blood 121 mg/dL (75-99)
[2018-06-10] MEDS: CIPROFLOXACIN HCL 500 MG TAB PO SCH (20:12)
[2018-06-10] MEDS: GABAPENTIN 300 MG CAP PO SCH (20:12)
[2018-06-10] MEDS: CHOLESTYRAMINE (WITH SUGAR) 4 GM PACKET PO SCH (20:12)
[2018-06-10] MEDS: SERTRALINE 100 MG TAB PO SCH (20:12)
--- NOTE | 2018-06-10 20:29 | PN ---
PROGRESS NOTE DATE OF SERVICE: 06/10/2018 REASON FOR FOLLOWUP: Neutropenic sepsis with citrobacter UTI. INTERVAL HISTORY: The patient is afebrile. She is breathing comfortably. Denies having any chest pain or shortness of breath or cough. No abdominal pain or any worsening diarrhea. No nausea or vomiting. PHYSICAL EXAMINATION: Blood pressure is 102/54 with a pulse of 71, temperature 98.3. She is 94% on room air. General description is a middle-aged female lying in bed in no distress. RESPIRATORY SYSTEM: Unlabored breathing. Clear to auscultation anteriorly. HEART: S1, S2. Regular rate and rhythm. ABDOMEN: Soft. No tenderness. LABS: Hemoglobin is 9.8, white count of 0.9. Urine with citrobacter sensitive to Cipro. DIAGNOSTIC IMPRESSION AND PLAN: Patient admitted to hospital with a fever in this patient with underlying neutropenia with concern for neutropenic sepsis. Blood culture has been negative. Urine with citrobacter. Antibiotic will be switched over to oral Cipro and we will monitor her clinical course closely. Continue with supportive care. MMODL / IJN: [id number] /
[2018-06-11] MEDS: SODIUM CHLORIDE 0.9% 1,000 ML IV SCH ×4 (00:39→19:31)
[2018-06-11 06:52] LABS: Glucose,Whole Blood 109 mg/dL (75-99)
[2018-06-11 07:27] LABS: Anisocytosis Slight; HGB 9.9 gm/dL (11.4-16.0); MCH 34.9 pg (25.0-35.0); MCHC 35.2 g/dL (31.0-37.0); MCV 99.3 fL (80.0-100.0); Macrocytosis Slight; Mean Platelet Volume 9.3; RBC 2.82 m/uL (3.80-5.40); RDW 16.2 % (11.5-15.5)
[2018-06-11 07:55] LABS: Platelet Count 47 k/uL (150-450)
[2018-06-11 07:57] LABS: WBC 1.1 k/uL (3.8-10.6)
[2018-06-11 08:00] LABS: Anion Gap 0 mmol/L; Blood Urea Nitrogen 12 mg/dL (7-17); Calcium 8.8 mg/dL (8.4-10.2); Carbon Dioxide 30 mmol/L (22-30); Chloride 112 mmol/L (98-107); Glucose 101 mg/dL (74-99); Potassium 4.3 mmol/L (3.5-5.1); Sodium 142 mmol/L (137-145)
[2018-06-11] MEDS: INSULIN ASPART 100 UNIT/ML 1 ML 10 ML VIAL SQ SCH ×5 (08:33→21:27)
[2018-06-11 09:05] LABS: Neutrophils % (M) 26 %
[2018-06-11 09:08] LABS: Band Neutrophils % 1 %; Eosinophils # (M) 0.09 k/uL (0-0.7); Lymphocytes # (M) 0.19 k/uL (1.0-4.8); Metamyelocytes # (M) 0.01 k/uL (0); Metamyelocytes % 1 %; Myelocytes # (M) 0.02 k/uL (0); Myelocytes % 2 %; Nucleated Red Blood Cells 1 /100 WBC (0-0); Total Cells Counted 100
[2018-06-11 09:09] LABS: Polychromasia Present
[2018-06-11] MEDS: LISINOPRIL 20 MG TAB PO SCH (09:56)
[2018-06-11] MEDS: LEVOTHYROXINE 137 MCG TAB PO SCH (09:56)
[2018-06-11] MEDS: PANTOPRAZOLE 40 MG TABLET PO SCH (09:56)
[2018-06-11] MEDS: GLIMEPIRIDE 2 MG TAB PO SCH ×2 (09:56→21:26)
[2018-06-11] MEDS: ATORVASTATIN 40 MG TAB PO SCH (09:56)
[2018-06-11] MEDS: OXYBUTYNIN XL 5 MG TAB.ER.24 PO SCH (09:56)
[2018-06-11] MEDS: ACYCLOVIR 200 MG CAP PO SCH ×2 (09:57→21:26)
[2018-06-11] MEDS: CIPROFLOXACIN HCL 500 MG TAB PO SCH ×2 (09:57→21:26)
[2018-06-11] MEDS: FILGRASTIM-SNDZ 480 MCG/0.8 ML SYRINGE SQ SCH (10:58)
[2018-06-11] MEDS: HYDROcodone/APAP 10-325MG 1 EACH TAB PO PRN ×2 (11:00→19:30)
[2018-06-11] MEDS: ONDANSETRON 4 MG/2 ML VIAL IVP PRN (11:00)
[2018-06-11 12:00] LABS: Glucose,Whole Blood 153 mg/dL (75-99)
--- NOTE | 2018-06-11 13:27 | P.PN ---
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 She was initially started on vancomycin and Unasyn and remained afebrile. Oncology was consulted and the patient was initiated on Zarxio for her neutropenia. Urine and blood cultures were ordered. ID was also consulted and the patient was switched to Vancomycin and Cefepime. Urine cultures grew GN bacilli and the patient was thereby resumed on the Cefepime while the Vanco was DCed. The urine cultures subsequently grew Citrobacter and the patient was switched to PO Cipro. The patient was seen and examined at the bedside. She was in good spirits and denied any active complaints. She denied chest pain, SOB, palpitations, nausea, or vomiting. She also denied cough, abdominal pain, diarrhea, fever, or chills. Objective - Vital Signs Vital signs: Vital Signs Temp 98.1 F 06/11/18 12:21 Pulse 69 06/11/18 12:21 Resp 16 06/11/18 12:21 BP 137/74 06/11/18 12:21 Pulse Ox 98 06/11/18 12:21 Intake & Output 06/10/18 06/11/18 06/11/18 18:59 06:59 18:59 Intake Total 500 280 Balance 500 280 Intake: Intake, IV Titration 280 Amount Sodium Chloride 0.9% 1, 280 000 ml @ 80 mls/hr IV . [id number] [facility] Rx#:[id number] Oral 500 Other: Voiding Method Toilet # Voids 1 1 - Exam General: Non-toxic, in no acute distress, appears stated age, morbidly obese HEENT: NC/AT, anicteric sclerae, moist conjunctiva, no lid-lag, PERRLA Cardiovascular: S1/S2 wnl, no murmurs, rubs, or gallops Lungs: Clear to auscultation, normal respiratory effort, no accessory muscle use Abdominal: Soft, non-tender, non-distended, no guarding, rebound, or rigidity Skin: Warm, dry Extremities: No edema or contractures Psychiatric: Alert and oriented to person, place and time, appropriate affect Neuro: CN II-XII grossly intact, Strength 5/5 in all 4 extremities, Speech intact, Sensation to light touch grossly intact throughout - Labs CBC & Chem 7: 06/11/18 06:35 06/11/18 06:35 Labs: Abnormal Lab Results - Last 24 Hours (Table) 06/10/18 06/10/18 06/11/18 Range/Units 17:10 20:02 06:35 WBC 1.1 L* (3.8-10.6) k/uL RBC 2.82 L (3.80-5.40) m/uL Hgb 9.9 L (11.4-16.0) gm/dL Hct 28.0 L (34.0-46.0) % RDW 16.2 H (11.5-15.5) % Plt Count 47 L (150-450) k/uL Neutrophils # (Manual) 0.20 L* (1.3-7.7) k/uL Lymphocytes # (Manual) 0.19 L (1.0-4.8) k/uL Metamyelocytes # (Man) 0.01 H (0) k/uL Myelocytes # (Manual) 0.02 H (0) k/uL Nucleated RBCs 1 H (0-0) /100 WBC Chloride (98-107) mmol/L Glucose (74-99) mg/dL POC Glucose (mg/dL) 240 H 121 H (75-99) mg/dL 06/11/18 06/11/18 06/11/18 Range/Units 06:35 06:42 11:59 WBC (3.8-10.6) k/uL RBC (3.80-5.40) m/uL Hgb (11.4-16.0) gm/dL Hct (34.0-46.0) % RDW (11.5-15.5) % Plt Count (150-450) k/uL Neutrophils # (Manual) (1.3-7.7) k/uL Lymphocytes # (Manual) (1.0-4.8) k/uL Metamyelocytes # (Man) (0) k/uL Myelocytes # (Manual) (0) k/uL Nucleated RBCs (0-0) /100 WBC Chloride 112 H (98-107) mmol/L Glucose 101 H (74-99) mg/dL POC Glucose (mg/dL) 109 H 153 H (75-99) mg/dL Microbiology - Last 24 Hours (Table) 06/07/18 14:46 Blood Culture - Preliminary Blood No Growth after 72 hours 06/07/18 12:27 Urine Culture - Final Urine,Clean Catch Citrobacter farmeri Assessment and Plan Plan: Chemotherapy induced pancytopenia, WBCs improved from 0.9 to 1.1 -Hematology following, patient on Zarxio -Xarelto being held -Hgb stable at 9.9 Citrobacter UTI -ID recs appreciated -C/w PO Cipro -F/u Blood cultures Type 2 DM -RAFAL with FS -C/w Amaryl Factor V leiden -Xarelto being held Hypothyroidism -C/w Levothyroxine HTN -Resume home meds Hx of HSV -C/w antiviral prophylaxis HLD -C/w Lipitor DVT//GI prophylaxis -IPCDs -No indication for GI prophylaxis Discussed with: Patient Anticipated discharge date: 06/12/[address]: Home A total of 35 minutes was spent on the care of this complex patient more than 50 % of the time was spent in counseling and care coordination.
[2018-06-11 16:58] LABS: Glucose,Whole Blood 243 mg/dL (75-99)
--- NOTE | 2018-06-11 18:00 | P.PN ---
Subjective Progress Note Date: 06/11/18 Principal diagnosis: neutropenic sepsis, lymphoma Patient seen today in follow-up. Complains of fatigue, appetite is slowly improving, no current nausea or vomiting, cough, difficulty in breathing, dysuria, hematuria, diarrhea or constipation. She is walking back and forth to the bathroom independently Objective - Vital Signs Vital signs: Vital Signs Temp 98.1 F 06/11/18 12:21 Pulse 69 06/11/18 12:21 Resp 16 06/11/18 12:21 BP 137/74 06/11/18 12:21 Pulse Ox 98 06/11/18 12:21 Intake & Output 06/10/18 06/11/18 06/11/18 18:59 06:59 18:59 Intake Total 500 280 Balance 500 280 Intake: Intake, IV Titration 280 Amount Sodium Chloride 0.9% 1, 280 000 ml @ 80 mls/hr IV . [id number] [facility] Rx#:[id number] Oral 500 Other: Voiding Method Toilet # Voids 1 1 - Constitutional General appearance: Present: cooperative, no acute distress, obese - EENT Eyes: Present: anicteric sclerae, EOMI ENT: Present: normal oropharynx - Respiratory Respiratory: bilateral: CTA - Cardiovascular Rhythm: regular Heart sounds: normal: S1, S2 Abnormal Heart Sounds: Absent: systolic murmur, diastolic murmur, rub, S3 Gallop , S4 Gallop, click, other - Peripheral edema leg Peripheral Edema: bilateral: None - Gastrointestinal General gastrointestinal: Present: soft Localized gastrointestinal: tender: epigastric periumbilical - Neurologic Neurologic: Present: CNII-XII intact - Musculoskeletal Musculoskeletal: Present: strength equal bilaterally - Psychiatric Psychiatric: Present: A&O x's 3, appropriate affect, intact judgment & insight - Labs CBC & Chem 7: 06/11/18 06:35 06/11/18 06:35 Labs: Abnormal Lab Results - Last 24 Hours (Table) 06/10/18 06/11/18 06/11/18 Range/Units 20:02 06:35 06:35 WBC 1.1 L* (3.8-10.6) k/uL RBC 2.82 L (3.80-5.40) m/uL Hgb 9.9 L (11.4-16.0) gm/dL Hct 28.0 L (34.0-46.0) % RDW 16.2 H (11.5-15.5) % Plt Count 47 L (150-450) k/uL Neutrophils # (Manual) 0.20 L* (1.3-7.7) k/uL Lymphocytes # (Manual) 0.19 L (1.0-4.8) k/uL Metamyelocytes # (Man) 0.01 H (0) k/uL Myelocytes # (Manual) 0.02 H (0) k/uL Nucleated RBCs 1 H (0-0) /100 WBC Chloride 112 H (98-107) mmol/L Glucose 101 H (74-99) mg/dL POC Glucose (mg/dL) 121 H (75-99) mg/dL 06/11/18 06/11/18 06/11/18 Range/Units 06:42 11:59 16:57 WBC (3.8-10.6) k/uL RBC (3.80-5.40) m/uL Hgb (11.4-16.0) gm/dL Hct (34.0-46.0) % RDW (11.5-15.5) % Plt Count (150-450) k/uL Neutrophils # (Manual) (1.3-7.7) k/uL Lymphocytes # (Manual) (1.0-4.8) k/uL Metamyelocytes # (Man) (0) k/uL Myelocytes # (Manual) (0) k/uL Nucleated RBCs (0-0) /100 WBC Chloride (98-107) mmol/L Glucose (74-99) mg/dL POC Glucose (mg/dL) 109 H 153 H 243 H (75-99) mg/dL Microbiology - Last 24 Hours (Table) 06/07/18 14:46 Blood Culture - Preliminary Blood No Growth after 96 hours Assessment and Plan (1) Urinary tract infection Narrative/Plan: Patient's symptoms seem to be improved today, there was no mention of incontinence but, I did not ask question specifically, will revisit tomorrow. Current Visit: Yes Status: Acute Priority: High Code(s): N39.0 - URINARY TRACT INFECTION, SITE NOT SPECIFIED SNOMED Code(s): 48616841 (2) Antineoplastic chemotherapy induced pancytopenia Narrative/Plan: CBC showing improvement. Patient's ANC is 200 today. Continue G-CSF tomorrow, CBC in the a.m. Patient is not requiring any transfusions at this time based on her lab values Current Visit: Yes Status: Acute Priority: High Code(s): D61.810 - ANTINEOPLASTIC CHEMOTHERAPY INDUCED PANCYTOPENIA; T45.1X5A - ADVERSE EFFECT OF ANTINEOPLASTIC AND IMMUNOSUP DRUGS, INIT SNOMED Code(s): 047335968643727 (3) NHL (non-Hodgkin's lymphoma) Narrative/Plan: Pt due for treatment on 06/13. Treatment will be held until she has completed abx and recovered from UTI Current Visit: Yes Status: Chronic Priority: Medium Code(s): C85.90 - NON- HODGKIN LYMPHOMA, UNSPECIFIED, UNSPECIFIED SITE SNOMED Code(s): 323523900
[2018-06-11 20:43] LABS: Glucose,Whole Blood 217 mg/dL (75-99)
[2018-06-11] MEDS: GABAPENTIN 300 MG CAP PO SCH (21:26)
[2018-06-11] MEDS: SERTRALINE 100 MG TAB PO SCH (21:26)
[2018-06-11] MEDS: CHOLESTYRAMINE (WITH SUGAR) 4 GM PACKET PO SCH (21:27)
--- NOTE | 2018-06-11 23:06 | PN ---
PROGRESS NOTE DATE OF SERVICE: 06/11/2018. REASON FOR FOLLOWUP: Bacteremia urinary tract infection. INTERVAL HISTORY: The patient is currently afebrile. She is breathing comfortably. Denies having any chest pain, shortness of breath or cough. No abdominal pain. Diarrhea has resolved. PHYSICAL EXAMINATION: Blood pressure 132/68 with a pulse of 72, temperature 98.1, she is 95% on room air. GENERAL DESCRIPTION: A middle-aged female lying in bed in no distress. RESPIRATORY SYSTEM: Unlabored breathing. Clear to auscultation anteriorly. HEART: S1, S2. Regular rate and rhythm. ABDOMEN: Soft, no tenderness. LABS: Hemoglobin 9.1, white count 1.1 with BUN of 12, creatinine 0.62. DIAGNOSTIC IMPRESSION AND PLAN: Patient admitted to the hospital with possible neutropenic sepsis, source possible history enterobacter urinary tract infection, for which the patient is currently on oral Cipro to continue for another 7 days to finish a course of therapy. Close outpatient followup. Continue supportive care. MMODL / IJN: [id number] /
[2018-06-12] MEDS: SODIUM CHLORIDE 0.9% 1,000 ML IV SCH ×2 (06:21→15:31)
[2018-06-12] MEDS: LEVOTHYROXINE 137 MCG TAB PO SCH (06:21)
[2018-06-12 06:51] LABS: Glucose,Whole Blood 89 mg/dL (75-99)
[2018-06-12] MEDS: INSULIN ASPART 100 UNIT/ML 1 ML 10 ML VIAL SQ SCH ×4 (06:59→20:56)
[2018-06-12] MEDS: CIPROFLOXACIN HCL 500 MG TAB PO SCH ×2 (08:36→20:55)
[2018-06-12] MEDS: ACYCLOVIR 200 MG CAP PO SCH ×2 (08:36→20:55)
[2018-06-12] MEDS: PANTOPRAZOLE 40 MG TABLET PO SCH (08:36)
[2018-06-12] MEDS: LISINOPRIL 20 MG TAB PO SCH (08:36)
[2018-06-12] MEDS: GLIMEPIRIDE 2 MG TAB PO SCH ×2 (08:36→20:55)
[2018-06-12] MEDS: OXYBUTYNIN 10 MG TAB.ER.24 PO SCH (08:36)
[2018-06-12] MEDS: ATORVASTATIN 40 MG TAB PO SCH (08:36)
[2018-06-12] MEDS: FILGRASTIM-SNDZ 480 MCG/0.8 ML SYRINGE SQ SCH (10:05)
[2018-06-12 11:40] LABS: Glucose,Whole Blood 196 mg/dL (75-99)
[2018-06-12 11:44] LABS: Anisocytosis Slight; HCT 28.1 % (34.0-46.0); HGB 9.4 gm/dL (11.4-16.0); MCH 34.1 pg (25.0-35.0); MCHC 33.3 g/dL (31.0-37.0); MCV 102.2 fL (80.0-100.0); Macrocytosis Moderate; Mean Platelet Volume 9.2; RBC 2.75 m/uL (3.80-5.40); RDW 16.8 % (11.5-15.5)
[2018-06-12 11:47] LABS: Platelet Count 38 k/uL (150-450)
[2018-06-12] MEDS: SENNOSIDES 8.6 MG TAB PO SCH ×2 (12:51→20:57)
[2018-06-12 16:42] LABS: Glucose,Whole Blood 103 mg/dL (75-99)
--- NOTE | 2018-06-12 16:55 | PN ---
PROGRESS NOTE DATE OF SERVICE: 06/12/2018 REASON FOR FOLLOWUP: Citrobacter urinary tract infection. INTERVAL HISTORY: The patient is currently afebrile. She is breathing comfortably. Denies having any chest pain. No shortness of breath or cough. No abdominal pain. No diarrhea, as the patient is complaining of constipation; no bowel movement for the last few days. PHYSICAL EXAMINATION: Her blood pressure is 126/76, pulse of 67, temperature 98. She is 96% on room air. General description is an elderly female up in the bed in no distress. RESPIRATORY SYSTEM: Unlabored breathing with decreased breath sounds at the base. No wheeze. HEART: S1, S2. Regular rate and rhythm. ABDOMEN: Soft. No tenderness. LABS: Hemoglobin 9.4, white count 2.0. Blood culture has been negative. DIAGNOSTIC IMPRESSION AND PLAN: 1. Patient admitted to hospital with neutropenia which she did have in the outpatient setting citrobacter urinary tract infection. The patient is currently on . That will continue for another 5 days. 2. Patient with constipation. Discontinue the Lomotil and the Questran. continue with supportive care. MMODL / IJN: [id number] /
--- NOTE | 2018-06-12 18:14 | P.PN ---
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 She was initially started on vancomycin and Unasyn and remained afebrile. Oncology was consulted and the patient was initiated on Zarxio for her neutropenia. Urine and blood cultures were ordered. ID was also consulted and the patient was switched to Vancomycin and Cefepime. Urine cultures grew GN bacilli and the patient was thereby resumed on the Cefepime while the Vanco was DCed. The urine cultures subsequently grew Citrobacter and the patient was switched to PO Cipro. The patient was seen and examined at the bedside. The patient denied any active complaints and was in good spirits. She denied fever, chills, chest pain , or cough. She also denied abdominal pain, nausea, vomiting. Objective - Vital Signs Vital signs: Vital Signs Temp 98 F 06/12/18 12:11 Pulse 67 06/12/18 12:11 Resp 16 06/12/18 12:11 BP 126/76 06/12/18 12:11 Pulse Ox 96 06/12/18 12:11 Intake & Output 06/11/18 06/12/18 06/12/18 18:59 06:59 18:59 Intake Total 640 960 640 Balance 640 960 640 Intake: Intake, IV Titration 640 960 640 Amount Sodium Chloride 0.9% 1, 640 960 640 000 ml @ 80 mls/hr IV . [id number] [facility] Rx#:[id number] Other: Voiding Method Toilet Toilet Toilet - Exam General: Non-toxic, in no acute distress, appears stated age, morbidly obese HEENT: NC/AT, anicteric sclerae, moist conjunctiva, no lid-lag, PERRLA Cardiovascular: S1/S2 wnl, no murmurs, rubs, or gallops Lungs: Clear to auscultation, normal respiratory effort, no accessory muscle use Abdominal: Soft, non-tender, non-distended, no guarding, rebound, or rigidity Skin: Warm, dry Extremities: No edema or contractures Psychiatric: Alert and oriented to person, place and time, appropriate affect Neuro: CN II-XII grossly intact, Strength 5/5 in all 4 extremities, Speech intact, Sensation to light touch grossly intact throughout - Labs CBC & Chem 7: 06/12/18 11:12 06/11/18 06:35 Labs: Abnormal Lab Results - Last 24 Hours (Table) 06/11/18 06/12/18 06/12/18 Range/Units 20:42 11:12 11:39 WBC 2.0 L (3.8-10.6) k/uL RBC 2.75 L (3.80-5.40) m/uL Hgb 9.4 L (11.4-16.0) gm/dL Hct 28.1 L (34.0-46.0) % MCV 102.2 H (80.0-100.0) fL RDW 16.8 H (11.5-15.5) % Plt Count 38 L (150-450) k/uL POC Glucose (mg/dL) 217 H 196 H (75-99) mg/dL 06/12/18 Range/Units 16:41 WBC (3.8-10.6) k/uL RBC (3.80-5.40) m/uL Hgb (11.4-16.0) gm/dL Hct (34.0-46.0) % MCV (80.0-100.0) fL RDW (11.5-15.5) % Plt Count (150-450) k/uL POC Glucose (mg/dL) 103 H (75-99) mg/dL Microbiology - Last 24 Hours (Table) 06/07/18 14:46 Blood Culture - Preliminary Blood No Growth after 120 hours Assessment and Plan Plan: Chemotherapy induced pancytopenia, WBCs improved from 1.1 to 2.0 -Hematology following, patient on Zarxio -Xarelto being held -Hgb stable Citrobacter UTI -ID recs appreciated -C/w PO Cipro -F/u Blood cultures Type 2 DM -RAFAL with FS -C/w Amaryl Factor V leiden -Xarelto being held Hypothyroidism -C/w Levothyroxine HTN -Resume home meds Hx of HSV -C/w antiviral prophylaxis HLD -C/w Lipitor DVT//GI prophylaxis -IPCDs -No indication for GI prophylaxis Discussed with: Patient Anticipated discharge date: 06/14/[address]: Home A total of 35 minutes was spent on the care of this complex patient more than 50 % of the time was spent in counseling and care coordination.
--- NOTE | 2018-06-12 19:03 | P.PN ---
Subjective Progress Note Date: 06/12/18 Principal diagnosis: neutropenic sepsis, lymphoma F/U, pt feeling better, concerned for constipation, no fevers, pain, swelling or bleeding Objective - Vital Signs Vital signs: Vital Signs Temp 98 F 06/12/18 12:11 Pulse 67 06/12/18 12:11 Resp 16 06/12/18 12:11 BP 126/76 06/12/18 12:11 Pulse Ox 96 06/12/18 12:11 Intake & Output 06/12/18 06/12/18 06/13/18 06:59 18:59 06:59 Intake Total 960 640 Balance 960 640 Intake: Intake, IV Titration 960 640 Amount Sodium Chloride 0.9% 1, 960 640 000 ml @ 80 mls/hr IV . [id number] [facility] Rx#:[id number] Other: Voiding Method Toilet Toilet - Constitutional General appearance: Present: cooperative, no acute distress, obese - EENT Eyes: Present: anicteric sclerae, EOMI ENT: Present: hearing grossly normal - Respiratory Respiratory: bilateral: CTA - Cardiovascular Heart sounds: normal: S1, S2 - Gastrointestinal General gastrointestinal: Present: normal bowel sounds, soft - Neurologic Neurologic: Present: CNII-XII intact - Musculoskeletal Musculoskeletal: Present: generalized weakness - Psychiatric Psychiatric: Present: A&O x's 3, appropriate affect, intact judgment & insight - Labs CBC & Chem 7: 06/12/18 11:12 06/11/18 06:35 Labs: Abnormal Lab Results - Last 24 Hours (Table) 06/11/18 06/12/18 06/12/18 Range/Units 20:42 11:12 11:39 WBC 2.0 L (3.8-10.6) k/uL RBC 2.75 L (3.80-5.40) m/uL Hgb 9.4 L (11.4-16.0) gm/dL Hct 28.1 L (34.0-46.0) % MCV 102.2 H (80.0-100.0) fL RDW 16.8 H (11.5-15.5) % Plt Count 38 L (150-450) k/uL POC Glucose (mg/dL) 217 H 196 H (75-99) mg/dL 06/12/18 Range/Units 16:41 WBC (3.8-10.6) k/uL RBC (3.80-5.40) m/uL Hgb (11.4-16.0) gm/dL Hct (34.0-46.0) % MCV (80.0-100.0) fL RDW (11.5-15.5) % Plt Count (150-450) k/uL POC Glucose (mg/dL) 103 H (75-99) mg/dL Microbiology - Last 24 Hours (Table) 06/07/18 14:46 Blood Culture - Preliminary Blood No Growth after 120 hours Assessment and Plan (1) Urinary tract infection Narrative/Plan: Patient's symptoms cont to improve. She is on oral tx. Current Visit: Yes Status: Acute Priority: High Code(s): N39.0 - URINARY TRACT INFECTION, SITE NOT SPECIFIED SNOMED Code(s): 50827786 (2) Antineoplastic chemotherapy induced pancytopenia Narrative/Plan: CBC showing improvement. Patient's WBC up, no diff today, will be done in AM. Continue G-CSF. Patient is not requiring any transfusions at this time based on her lab values Current Visit: Yes Status: Acute Priority: High Code(s): D61.810 - ANTINEOPLASTIC CHEMOTHERAPY INDUCED PANCYTOPENIA; T45.1X5A - ADVERSE EFFECT OF ANTINEOPLASTIC AND IMMUNOSUP DRUGS, INIT SNOMED Code(s): 678446824390493 (3) NHL (non-Hodgkin's lymphoma) Narrative/Plan: Pt due for treatment on 06/13. Treatment will be held until she has completed abx and recovered from UTI Current Visit: Yes Status: Chronic Priority: Medium Code(s): C85.90 - NON- HODGKIN LYMPHOMA, UNSPECIFIED, UNSPECIFIED SITE SNOMED Code(s): 280662292
[2018-06-12] MEDS: HYDROcodone/APAP 10-325MG 1 EACH TAB PO PRN (19:42)
[2018-06-12 20:08] LABS: Glucose,Whole Blood 267 mg/dL (75-99)
[2018-06-12] MEDS: GABAPENTIN 300 MG CAP PO SCH (20:55)
[2018-06-12] MEDS: SERTRALINE 100 MG TAB PO SCH (20:57)
[2018-06-13] MEDS: SODIUM CHLORIDE 0.9% 1,000 ML IV SCH (06:07)
[2018-06-13] MEDS: LEVOTHYROXINE 137 MCG TAB PO SCH (06:07)
[2018-06-13 06:57] LABS: Glucose,Whole Blood 80 mg/dL (75-99)
[2018-06-13] MEDS: INSULIN ASPART 100 UNIT/ML 1 ML 10 ML VIAL SQ SCH ×2 (09:01→12:17)
[2018-06-13] MEDS: ACYCLOVIR 200 MG CAP PO SCH (09:02)
[2018-06-13] MEDS: ATORVASTATIN 40 MG TAB PO SCH (09:02)
[2018-06-13] MEDS: SENNOSIDES 8.6 MG TAB PO SCH (09:02)
[2018-06-13] MEDS: PANTOPRAZOLE 40 MG TABLET PO SCH (09:02)
[2018-06-13] MEDS: LISINOPRIL 20 MG TAB PO SCH (09:02)
[2018-06-13] MEDS: HYDROcodone/APAP 10-325MG 1 EACH TAB PO PRN ×2 (09:03→14:05)
[2018-06-13] MEDS: OXYBUTYNIN 10 MG TAB.ER.24 PO SCH (09:05)
[2018-06-13] MEDS: GLIMEPIRIDE 2 MG TAB PO SCH (09:06)
[2018-06-13] MEDS: CIPROFLOXACIN HCL 500 MG TAB PO SCH (09:06)
[2018-06-13] MEDS: FILGRASTIM-SNDZ 480 MCG/0.8 ML SYRINGE SQ SCH (09:26)
[2018-06-13 09:50] LABS: Anisocytosis Slight; Basophils % (A) 0 %; Eosinophils # (A) 0.1 k/uL (0-0.7); Eosinophils % (A) 4 %; HCT 29.6 % (34.0-46.0); HGB 9.5 gm/dL (11.4-16.0); Lymphocytes # (A) 0.2 k/uL (1.0-4.8); Lymphocytes % (A) 6 %; MCH 33.4 pg (25.0-35.0); MCHC 32.2 g/dL (31.0-37.0); MCV 103.6 fL (80.0-100.0); Macrocytosis Moderate; Mean Platelet Volume 8.3; Monocytes # (A) 0.2 k/uL (0-1.0); Monocytes % (A) 7 %; Neutrophils # (A) 2.4 k/uL (1.3-7.7); Neutrophils % (A) 79 %; RBC 2.86 m/uL (3.80-5.40); RDW 16.4 % (11.5-15.5)
[2018-06-13 10:02] LABS: Platelet Count 32 k/uL (150-450)
[2018-06-13 11:25] LABS: Glucose,Whole Blood 187 mg/dL (75-99)
--- NOTE | 2018-06-13 11:34 | P.PN ---
Subjective Progress Note Date: 06/13/18 Principal diagnosis: neutropenic sepsis, lymphoma Pt seen in f/u, she is feeling ok today, no fevers, nausea, appetite is fair, no cough, abd pain, her urinary incontinence is improving, no suprapubic pain, diarrhea, constipation, bleeding or unusual pain. Objective - Vital Signs Vital signs: Vital Signs Temp 97.5 F L 06/13/18 05:00 Pulse 65 06/13/18 05:00 Resp 16 06/13/18 05:00 BP 109/65 06/13/18 05:00 Pulse Ox 98 06/13/18 05:00 Intake & Output 06/12/18 06/13/18 06/13/18 18:59 06:59 18:59 Intake Total 640 1120 Balance 640 1120 Intake: Intake, IV Titration 640 1120 Amount Sodium Chloride 0.9% 1, 640 1120 000 ml @ 80 mls/hr IV . [id number] BETTE Rx#:[id number] Other: Voiding Method Toilet Toilet Toilet # Voids 2 - Constitutional General appearance: Present: cooperative, no acute distress, obese - EENT Eyes: Present: anicteric sclerae, EOMI ENT: Present: hearing grossly normal - Respiratory Respiratory: bilateral: CTA - Cardiovascular Rhythm: regular Heart sounds: normal: S1, S2 Abnormal Heart Sounds: Absent: systolic murmur, diastolic murmur, rub, S3 Gallop , S4 Gallop, click, other - Peripheral edema leg Peripheral Edema: bilateral: None - Gastrointestinal General gastrointestinal: Present: normal bowel sounds, soft. Absent: absent bowel sounds, decreased bowel sounds, distended, hepatomegaly, hyperactive bowel sounds, organomegaly, rigid, scaphoid, splenomegaly, tenderness, umbilical hernia, ventral hernia - Integumentary Integumentary: Present: normal turgor, pale - Neurologic Neurologic: Present: CNII-XII intact - Musculoskeletal Musculoskeletal: Present: strength equal bilaterally - Psychiatric Psychiatric: Present: A&O x's 3, appropriate affect, intact judgment & insight - Labs CBC & Chem 7: 06/13/18 09:17 06/11/18 06:35 Labs: Abnormal Lab Results - Last 24 Hours (Table) 06/12/18 06/12/18 06/12/18 Range/Units 11:12 11:39 16:41 WBC 2.0 L (3.8-10.6) k/uL RBC 2.75 L (3.80-5.40) m/uL Hgb 9.4 L (11.4-16.0) gm/dL Hct 28.1 L (34.0-46.0) % MCV 102.2 H (80.0-100.0) fL RDW 16.8 H (11.5-15.5) % Plt Count 38 L (150-450) k/uL Lymphocytes # (1.0-4.8) k/uL POC Glucose (mg/dL) 196 H 103 H (75-99) mg/dL 06/12/18 06/13/18 06/13/18 Range/Units 20:08 09:17 11:24 WBC 3.0 L (3.8-10.6) k/uL RBC 2.86 L (3.80-5.40) m/uL Hgb 9.5 L (11.4-16.0) gm/dL Hct 29.6 L (34.0-46.0) % MCV 103.6 H (80.0-100.0) fL RDW 16.4 H (11.5-15.5) % Plt Count 32 L (150-450) k/uL Lymphocytes # 0.2 L (1.0-4.8) k/uL POC Glucose (mg/dL) 267 H 187 H (75-99) mg/dL Microbiology - Last 24 Hours (Table) 06/07/18 14:46 Blood Culture - Preliminary Blood No Growth after 120 hours Assessment and Plan (1) Urinary tract infection Narrative/Plan: Susceptible to cipro, pt is on oral Current Visit: Yes Status: Acute Priority: High Code(s): N39.0 - URINARY TRACT INFECTION, SITE NOT SPECIFIED SNOMED Code(s): 23850256 (2) Antineoplastic chemotherapy induced pancytopenia Narrative/Plan: WBC improved with GCSF, ANC 2.4 today. Cont GCSF through tomorrow if pt remains in hospital Hgb stable, no transfusion Plt low, stable, slow to improve, no transfusion. No asa, NSAIDs, anticoagulation Current Visit: Yes Status: Acute Priority: High Code(s): D61.810 - ANTINEOPLASTIC CHEMOTHERAPY INDUCED PANCYTOPENIA; T45.1X5A - ADVERSE EFFECT OF ANTINEOPLASTIC AND IMMUNOSUP DRUGS, INIT SNOMED Code(s): 675059354877567 (3) NHL (non-Hodgkin's lymphoma) Narrative/Plan: Pt has a f/u appt with Dr. Purvis next week. He will decide changes to treatment. Current Visit: Yes Status: Chronic Priority: Medium Code(s): C85.90 - NON- HODGKIN LYMPHOMA, UNSPECIFIED, UNSPECIFIED SITE SNOMED Code(s): 338179469
[2018-06-13 11:59] VITALS: BP 152/65; PULSE 72; RESP 17; TEMP 98
--- NOTE | 2018-06-13 12:04 | P.DS ---
Providers Date of admission: 06/10/18 14:49 Expected date of discharge: 06/13/18 Attending physician: Darby Ferro DO Consults: 06/07/18 14:13 Consult Physician Routine Consulting Provider: Forrest Balderrama Consult Reason/Comments: neutropenia Do you want consulting provider notified?: Yes 06/07/18 15:49 Consult Physician Routine Consulting Provider: Mariann Edmonds Consult Reason/Comments: neutropenia Do you want consulting provider notified?: Yes Primary care physician: [facility] Course: The patient is a 57 y/o female with a hx of factor V leiden w/ multiple DVTs ( On Xarelto), with recurrence of her 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 She was initially started on vancomycin and Unasyn and remained afebrile. Oncology was consulted and the patient was initiated on Zarxio for her neutropenia. Urine and blood cultures were ordered. ID was also consulted and the patient was switched to Vancomycin and Cefepime. Urine cultures grew GN bacilli and the patient was thereby resumed on the Cefepime while the Vanco was DCed. The urine cultures subsequently grew Citrobacter and the patient was switched to PO Cipro. The patient's WBC count gradually improved 3.0 with ANC 2370. Discussed with Hematology who recommended that the patient can be discharged home with close f/u with Hematology as outpatient along with holding Xarelto since platelets less than 50,000. The patient was seen and examined at the bedside. She was in good spirits and denied any active complaints. She denied fever, chills, abdominal pain, dysuria, nausea, or vomiting. She also denied chest pain, or shortness of breath. She is presently stable and ready for discharge to home. Physical Examination General: Non-toxic, in no acute distress, appears stated age, normal weight HEENT: NC/AT, anicteric sclerae, moist conjunctiva, no lid-lag, PERRLA Cardiovascular: S1/S2 wnl, no murmurs, rubs, or gallops Lungs: Clear to auscultation, normal respiratory effort, no accessory muscle use Abdominal: Soft, non-tender, non-distended, no guarding, rebound, or rigidity Skin: Warm, dry Extremities: No edema or contractures Psychiatric: Alert and oriented to person, place and time, appropriate affect Neuro: CN II-XII grossly intact, Strength 5/5 in all 4 extremities, Speech intact, Sensation to light touch grossly intact throughout Discharge diagnosis: Chemotherapy induced pancytopenia; recurrent 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 Patient Condition at Discharge: Stable Plan - Discharge Summary Discharge Rx Participant: No New Discharge Prescriptions: New Ciprofloxacin HCl [Cipro] 500 mg PO BID #10 tab Continue Sertraline [Zoloft] 200 mg PO HS Atorvastatin [Lipitor] 40 mg PO DAILY Levothyroxine Sodium [Synthroid] 137 mcg PO DAILY Glimepiride [Amaryl] 2 mg PO BID Tolterodine ER [Detrol LA] 4 mg PO DAILY Diphenox-Atrop 2.5-0.025 mg [Lomotil] 2 tab PO QID PRN PRN Reason: Diarrhea HYDROcodone/APAP 10-325MG [[place] 10-325] 1 tab PO Q6H PRN PRN Reason: Pain Cholestyramine (with Sugar) [Cholestyramine Packet] 4 gm PO HS Ondansetron [Zofran] 4 mg PO Q6H PRN PRN Reason: Nausea Omeprazole [PriLOSEC] 20 mg PO AC-BID Acyclovir 400 mg PO BID Prochlorperazine [Compazine] 10 mg PO Q6H PRN PRN Reason: Nausea Gabapentin [Neurontin] 300 mg PO HS Lisinopril [Zestril] 20 mg PO DAILY Discontinued Rivaroxaban [Xarelto] 20 mg PO DAILY #30 tab Nitrofurantoin Macrocrystal [Macrodantin] 100 mg PO BID valACYclovir HCL [Valacyclovir] 1,000 mg PO TID Discharge Medication List Sertraline [Zoloft] 200 mg PO HS 03/07/15 [History] Atorvastatin [Lipitor] 40 mg PO DAILY 02/10/16 [History] Levothyroxine Sodium [Synthroid] 137 mcg PO DAILY 08/17/16 [History] Glimepiride [Amaryl] 2 mg PO BID 12/19/16 [History] Diphenox-Atrop 2.5-0.025 mg [Lomotil] 2 tab PO QID PRN 03/30/17 [History] Tolterodine ER [Detrol LA] 4 mg PO DAILY 03/30/17 [History] Acyclovir 400 mg PO BID 06/07/18 [History] Cholestyramine (with Sugar) [Cholestyramine Packet] 4 gm PO HS 06/07/18 [History ] Gabapentin [Neurontin] 300 mg PO HS 06/07/18 [History] HYDROcodone/APAP 10-325MG [[place] 10-325] 1 tab PO Q6H PRN 06/07/18 [History] Lisinopril [Zestril] 20 mg PO DAILY 06/07/18 [History] Omeprazole [PriLOSEC] 20 mg PO AC-BID 06/07/18 [History] Ondansetron [Zofran] 4 mg PO Q6H PRN 06/07/18 [History] Prochlorperazine [Compazine] 10 mg PO Q6H PRN 06/07/18 [History] Ciprofloxacin HCl [Cipro] 500 mg PO BID #10 tab 06/13/18 [Rx] Follow up Appointment(s)/Referral(s): Obdulia Jasso MD [Primary Care Provider] - 1-2 days Forrest Balderrama MD [STAFF PHYSICIAN] - 06/20/18 2:45 pm Activity/Diet/Wound Care/Special Instructions: New glucometer and supplies ordered through [employer] per insurance request. This will be mailed directly to patient's house. [employer] phone #[phone]. Discharge Disposition: HOME SELF-CARE
--- NOTE | 2018-06-13 16:44 | PN ---
PROGRESS NOTE DATE OF SERVICE: 06/13/2018. REASON FOR FOLLOWUP: Citrobacter urinary tract infection. INTERVAL HISTORY: The patient was seen on rounds early this afternoon. The patient has been afebrile. She is feeling better, breathing comfortably. Denies having any chest pain, shortness of breath or cough. No abdominal pain and no diarrhea. PHYSICAL EXAMINATION: Blood pressure 152/55 with a pulse of 72, temperature 98. She is 94% on room air. General description is a middle-aged female up in the chair in no distress. RESPIRATORY SYSTEM: Unlabored breathing. Clear to auscultation anteriorly. HEART: S1, S2. Regular rate and rhythm. ABDOMEN: Soft. No tenderness. LABS: White count up to 3000. DIAGNOSTIC IMPRESSION AND PLAN: Patient admitted to hospital with febrile neutropenia. The patient's white count has recovered. Blood culture is negative. Urine positive for citrobacter. She will continue oral Cipro for another 5 days to finish a course of therapy. Continue supportive care. MMODL / IJN: [id number] /
== END 2018-06-13 14:45 | disposition home or self-care (01) | DRG 809 ==
LOC: EC 11:48 → 4SSUR 14:14 → OBSVTOIN 06-10 14:49 → 3NMEDONC 06-11 11:34
PROVIDERS: ADMIT Internal Medicine; ATTEND Internal Medicine
DX: D61.810 Antineoplastic chemotherapy induced pancytopenia (principal); D68.51 Activated protein C resistance; N39.0 Urinary tract infection, site not specified; C82.13 Follicular lymphoma grade II, intra-abdominal lymph nodes; E11.42 Type 2 diabetes mellitus with diabetic polyneuropathy; E78.5 Hyperlipidemia, unspecified; E89.0 Postprocedural hypothyroidism; G47.33 Obstructive sleep apnea (adult) (pediatric); I10 Essential (primary) hypertension; K59.00 Constipation, unspecified; K76.9 Liver disease, unspecified; R50.81 Fever presenting with conditions classified elsewhere; T45.1X5A Adverse effect of antineoplastic and immunosuppressive drugs, initial encounter; Z79.01 Long term (current) use of anticoagulants; Z79.84 Long term (current) use of oral hypoglycemic drugs; Z79.890 Hormone replacement therapy; Z79.899 Other long term (current) drug therapy; Z82.49 Family history of ischemic heart disease and other diseases of the circulatory system; Z83.3 Family history of diabetes mellitus; Z86.19 Personal history of other infectious and parasitic diseases; Z87.440 Personal history of urinary (tract) infections; Z90.710 Acquired absence of both cervix and uterus; Z95.828 Presence of other vascular implants and grafts; B00.9 Herpesviral infection, unspecified; Z88.4 Allergy status to anesthetic agent; Z80.9 Family history of malignant neoplasm, unspecified; Z84.1 Family history of disorders of kidney and ureter; Z53.09 Procedure and treatment not carried out because of other contraindication; Z90.49 Acquired absence of other specified parts of digestive tract; Z83.2 Family history of diseases of the blood and blood-forming organs and certain disorders involving the immune mechanism
CPT/HCPCS: 36415; 71046; 80048; 80053; 81001; 82565; 83036; 83605; 83735; 85025; 85027; 86850; 86900; 86901; 87040; 87077; 87086; 87186; 87324; 96361; 96365; 99285

== ENCOUNTER 2018-07-10 16:00 | Observation (INO) | payer MEDICARE ==
[2018-07-10] MEDS ORDERED: SODIUM CHLORIDE 0.9% 1,000 ML IV STA (16:52)
--- NOTE | 2018-07-10 18:04 | ED ---
General Adult HPI <JuarezAlan - Last Filed: 07/10/18 20:54> - General Source: patient, RN notes reviewed Mode of arrival: wheelchair Limitations: no limitations <Heraclio Leyva - Last Filed: 07/10/18 22:23> - General Chief complaint: Nausea/Vomiting/Diarrhea Stated complaint: Time Seen by Provider: 07/10/18 16:50 - History of Present Illness Initial comments: 57-year-old female with a complicated past medical history including lymphoma stage IV presents to the emergency department for a chief complaint of feeling fatigued. Patient states she has felt fatigued for the past 6 days. She states she has had diarrhea since that time multiple times per day. Patient was last hospitalized about a month ago. Patient states she vomited twice yesterday. She has not vomited today. She states she is keeping down water at home. She states she has had cramping abdominal pain in the lower abdomen but denies any other pain. She states she saw her oncologist who recommended she come to the emergency department for probable admission. She states she has pain in her chest where her lymphoma is located and states that this is chronic. States this is unchanged. Patient has no other complaints at this time including shortness of breath, chest pain, abdominal pain, vomiting, headache, or visual changes. (Heraclio Leyva) - Related Data Home Medications Medication Instructions Recorded Confirmed Sertraline [Zoloft] 200 mg PO HS 03/07/15 07/10/18 Atorvastatin [Lipitor] 40 mg PO DAILY 02/10/16 07/10/18 Levothyroxine Sodium [Synthroid] 137 mcg PO DAILY 08/17/16 07/10/18 Glimepiride [Amaryl] 2 mg PO BID 12/19/16 07/10/18 Tolterodine ER [Detrol LA] 4 mg PO DAILY 03/30/17 07/10/18 Acyclovir 400 mg PO BID 06/07/18 07/10/18 Gabapentin [Neurontin] 300 mg PO HS 06/07/18 07/10/18 HYDROcodone/APAP 10-325MG [[place] 1 tab PO Q6H PRN 06/07/18 07/10/18 10-325] Lisinopril [Zestril] 20 mg PO DAILY 06/07/18 07/10/18 Omeprazole [PriLOSEC] 20 mg PO AC-BID 06/07/18 07/10/18 Prochlorperazine [Compazine] 10 mg PO Q6H PRN 06/07/18 07/10/18 Allergies Allergy/AdvReac Type Severity Reaction Status Date / Time Anesthetics - Amide Type AdvReac Nausea & Verified 07/10/18 17:42 Vomiting & Diarrhea Anesthetics - Jonna Type- AdvReac Nausea & Verified 07/10/18 17:42 Parabens Vomiting & Diarrhea oxycodone [From OxyContin] AdvReac Nausea & Verified 07/10/18 17:42 Vomiting Review of Systems ROS Other: All systems not noted in ROS Statement are negative. <Alan Juarez - Last Filed: 07/10/18 20:54> ROS Other: All systems not noted in ROS Statement are negative. <Heraclio Leyva - Last Filed: 07/10/18 22:23> ROS Statement: Those systems with pertinent positive or pertinent negative responses have been documented in the HPI. 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 History of Any Multi-Drug Resistant Organisms: ESBL Date of last positivie culture/infection: 05/12/17 MDRO Source:: ESBL URINE Past Surgical History: Adenoidectomy, Appendectomy, Back Surgery, Cholecystectomy, Hysterectomy, Orthopedic Surgery, Tonsillectomy Additional Past Surgical History / Comment(s): Recent abdominal mass biopsy x 2 , BMA, EGD/colonoscopy at [facility], bilateral carpal tunnel release, thyroidectomy (one tiny piece unable to remove), ORIF rt ankle, stents in LLE/ vascular stent, cervical surgery C4,C6, thyroidectomy Past Anesthesia/Blood Transfusion Reactions: Postoperative Nausea & Vomiting ( PONV) Additional Past Anesthesia/Blood Transfusion Reaction / Comment(s): blood transfusion(December 2015) "pt stated an hour after transfusion became very nauseated and had quit a bit of vomiting" Past Psychological History: No Psychological Hx Reported Smoking Status: Never smoker Past Alcohol Use History: None Reported Past Drug Use History: None Reported - Past Family History Mother Family Medical History: Diabetes Mellitus, Renal Disease Additional Family Medical History / Comment(s): Mother of kidney failure at the age of 69yrs. Father Family Medical History: Diabetes Mellitus Additional Family Medical History / Comment(s): Father of a "sugar coma" when he was 72 yrs old. Brother(s) Family Medical History: Cancer Sister(s) Family Medical History: Myocardial Infarction (OK) Additional Family Medical History / Comment(s): Patient has 3 sisters and 2 of them are diabetic. Son(s) Family Medical History: No Reported History (Patient has 4 sons no major medical problems) Additional Family Medical History / Comment(s): Patient has 4 sons with no major medical problems. Daughter(s) Family Medical History: Deep Vein Thrombosis (DVT) Additional Family Medical History / Comment(s): Patient has a daughter with DVT. <Heraclio Leyva P - Last Filed: 07/10/18 22:23> General Exam Limitations: no limitations General appearance: alert, in no apparent distress Head exam: Present: atraumatic, normocephalic, normal inspection Eye exam: Present: normal appearance, PERRL, EOMI. Absent: scleral icterus, conjunctival injection, periorbital swelling ENT exam: Present: normal exam, normal oropharynx, mucous membranes moist, normal external ear exam Neck exam: Present: normal inspection, full ROM. Absent: tenderness, meningismus, lymphadenopathy Respiratory exam: Present: normal lung sounds bilaterally. Absent: respiratory distress, wheezes, rales, rhonchi, stridor Cardiovascular Exam: Present: regular rate, normal rhythm, normal heart sounds. Absent: systolic murmur, diastolic murmur, rubs, gallop, clicks GI/Abdominal exam: Present: soft, normal bowel sounds. Absent: distended, tenderness (no tenderness noted of the abdomen), guarding, rebound, rigid Extremities exam: Present: full ROM Neurological exam: Present: alert, oriented X3, CN II-XII intact, normal gait ( ambulatory in ER) Psychiatric exam: Present: normal affect, normal mood <Heraclio Leyva P - Last Filed: 07/10/18 22:23> Vital Signs 07/10/18 07/10/18 16:36 22:21 Temperature 98.6 F Pulse Rate 81 74 Respiratory 16 16 Rate Blood Pressure 121/71 140/59 O2 Sat by Pulse 99 98 Oximetry EKG Findings - EKG Comments: EKG Findings:: . <Heraclio Leyva - Last Filed: 07/10/18 22:23> Medical Decision Making - Lab Data Result diagrams: 07/10/18 18:30 07/10/18 18:30 <Alan Juarez - Last Filed: 07/10/18 20:54> - Lab Data Result diagrams: 07/10/18 18:30 07/10/18 18:30 <Heraclio Leyva - Last Filed: 07/10/18 22:23> - Medical Decision Making Case discussed with practitioner Ca. Case also discussed with Dr. Jeffrey, covering for Dr. Dumont who is okay with admission of patient. (Alan Juarez) 57-year-old female with a complicated past medical history including stage IV lymphoma presents to the emergency department for a chief complaint of feeling fatigued for the past several days. She states she has had 6 days of persistent diarrhea. C. diff is negative here. She is complaining of severe cramping abdominal pain. She has also vomited in the past 2 days and has only been keeping some water down at home. Patient was sent in by her oncologist. CBC generally unremarkable. Patient does have, cytopenia noted which is slightly improved from past levels. Mild hypokalemia noted at 3.4, patient given 20 mEq orally. Urine shows 33 red cells with trace leukocyte esterase, culture was ordered. CT shows a masslike area involving the root of the small bowel mesentery slightly improved compared to last exam likely related to lymphoma. There is a new mild L5 compression fracture compared to old exam, no recent falls. There is a mildly dilated biliary tree slightly increased compared to last exam without obstructing mass identified. However bilirubin and liver enzymes largely unchanged. Given patients weakness and diarrhea copmlicated by medical history, patient will be admitted for fluid rehydration and further management (Heraclio Leyva) - Lab Data Lab Results 02/27/19 02/27/19 02/27/19 Range/Units 17:53 18:30 18:30 WBC 4.0 (3.8-10.6) k/uL RBC 2.96 L (3.80-5.40) m/uL Hgb 10.4 L (11.4-16.0) gm/dL Hct 31.0 L (34.0-46.0) % MCV 104.8 H (80.0-100.0) fL MCH 35.2 H (25.0-35.0) pg MCHC 33.6 (31.0-37.0) g/dL RDW 16.7 H (11.5-15.5) % Plt Count 45 L (150-450) k/uL Neutrophils % 82 % Lymphocytes % 2 % Monocytes % 9 % Eosinophils % 3 % Basophils % 0 % Neutrophils # 3.3 (1.3-7.7) k/uL Lymphocytes # 0.1 L (1.0-4.8) k/uL Monocytes # 0.4 (0-1.0) k/uL Eosinophils # 0.1 (0-0.7) k/uL Basophils # 0.0 (0-0.2) k/uL Anisocytosis Slight Macrocytosis Moderate Sodium 141 (137-145) mmol/L Potassium 3.4 L (3.5-5.1) mmol/L Chloride 112 H (98-107) mmol/L Carbon Dioxide 25 (22-30) mmol/L Anion Gap 4 mmol/L BUN 13 (7-17) mg/dL Creatinine 0.63 (0.52-1.04) mg/dL Est GFR (CKD-EPI)AfAm >90 (>60 ml/min/1.73 sqM) Est GFR (CKD-EPI)NonAf >90 (>60 ml/min/1.73 sqM) Glucose 115 H (74-99) mg/dL Calcium 8.5 (8.4-10.2) mg/dL Total Bilirubin 1.5 H (0.2-1.3) mg/dL AST 40 H (14-36) U/L ALT 37 (9-52) U/L Alkaline Phosphatase 163 H (38-126) U/L Total Protein 5.1 L (6.3-8.2) g/dL Albumin 2.9 L (3.5-5.0) g/dL Amylase <30 L (30-110) U/L Lipase 56 (23-300) U/L Urine Color Urine Appearance (Clear) Urine pH (5.0-8.0) Ur Specific [place] (1.001-1.035) Urine Protein (Negative) Urine Glucose (UA) (Negative) Urine Ketones (Negative) Urine Blood (Negative) Urine Nitrite (Negative) Urine Bilirubin (Negative) Urine Urobilinogen (<2.0) mg/dL Ur Leukocyte Esterase (Negative) Urine RBC (0-5) /hpf Urine WBC (0-5) /hpf Ur Squamous Epith Cells (0-4) /hpf Urine Bacteria (None) /hpf Urine Mucus (None) /hpf C. difficile (EIA) Intrp Negative (Negative) 07/10/18 Range/Units 20:18 WBC (3.8-10.6) k/uL RBC (3.80-5.40) m/uL Hgb (11.4-16.0) gm/dL Hct (34.0-46.0) % MCV (80.0-100.0) fL MCH (25.0-35.0) pg MCHC (31.0-37.0) g/dL RDW (11.5-15.5) % Plt Count (150-450) k/uL Neutrophils % % Lymphocytes % % Monocytes % % Eosinophils % % Basophils % % Neutrophils # (1.3-7.7) k/uL Lymphocytes # (1.0-4.8) k/uL Monocytes # (0-1.0) k/uL Eosinophils # (0-0.7) k/uL Basophils # (0-0.2) k/uL Anisocytosis Macrocytosis Sodium (137-145) mmol/L Potassium (3.5-5.1) mmol/L Chloride (98-107) mmol/L Carbon Dioxide (22-30) mmol/L Anion Gap mmol/L BUN (7-17) mg/dL Creatinine (0.52-1.04) mg/dL Est GFR (CKD-EPI)AfAm (>60 ml/min/1.73 sqM) Est GFR (CKD-EPI)NonAf (>60 ml/min/1.73 sqM) Glucose (74-99) mg/dL Calcium (8.4-10.2) mg/dL Total Bilirubin (0.2-1.3) mg/dL AST (14-36) U/L ALT (9-52) U/L Alkaline Phosphatase (38-126) U/L Total Protein (6.3-8.2) g/dL Albumin (3.5-5.0) g/dL Amylase (30-110) U/L Lipase (23-300) U/L Urine Color Yellow Urine Appearance Cloudy H (Clear) Urine pH 6.5 (5.0-8.0) Ur Specific [place] 1.031 (1.001-1.035) Urine Protein Trace H (Negative) Urine Glucose (UA) Negative (Negative) Urine Ketones 1+ H (Negative) Urine Blood Negative (Negative) Urine Nitrite Negative (Negative) Urine Bilirubin Negative (Negative) Urine Urobilinogen 8.0 (<2.0) mg/dL Ur Leukocyte Esterase Trace H (Negative) Urine RBC 33 H (0-5) /hpf Urine WBC 4 (0-5) /hpf Ur Squamous Epith Cells 4 (0-4) /hpf Urine Bacteria Few H (None) /hpf Urine Mucus Few H (None) /hpf C. difficile (EIA) Intrp (Negative) Disposition <Alan Juarez - Last Filed: 07/10/18 20:54> Is patient prescribed a controlled substance at d/c from ED?: No Time of Disposition: 21:36 <Heraclio Leyva - Last Filed: 07/10/18 22:23> Clinical Impression: Diarrhea, Weakness, Thrombocytopenia Disposition: ADMITTED IP TO THIS HOSP Condition: Fair
[2018-07-10] MEDS ORDERED: ONDANSETRON 4 MG/2 ML VIAL IVP STA (18:23)
[2018-07-10] MEDS ORDERED: MORPHINE SULFATE 4 MG/ML SYRINGE IVP STA (18:23)
--- NOTE | 2018-07-10 18:38 | XR ---
EXAMINATION TYPE: XR chest 2V DATE OF EXAM: 07/10/2018 COMPARISON: 06/07/2018 HISTORY: Cough TECHNIQUE: Frontal and lateral views of the chest are obtained. FINDINGS: There is no heart failure nor confluent pneumonic infiltrate. Costophrenic angles are tate r. There is left central venous catheter with tip in the superior vena cava. There is cervical spine fusion surgery. Bony thorax is intact. IMPRESSION: No active cardiopulmonary disease. Normal heart. No change.
[2018-07-10 19:04] LABS: ALT 37 U/L (9-52); AST 40 U/L (14-36); Albumin 2.9 g/dL (3.5-5.0); Alkaline Phosphatase 163 U/L (38-126); Amylase <30 U/L (30-110); Anion Gap 4 mmol/L; Blood Urea Nitrogen 13 mg/dL (7-17); Calcium 8.5 mg/dL (8.4-10.2); Carbon Dioxide 25 mmol/L (22-30); Chloride 112 mmol/L (98-107); Glucose 115 mg/dL (74-99); Lipase 56 U/L (23-300); Sodium 141 mmol/L (137-145); Total Bilirubin 1.5 mg/dL (0.2-1.3); Total Protein 5.1 g/dL (6.3-8.2)
[2018-07-10 19:07] LABS: Potassium 3.4 mmol/L (3.5-5.1)
[2018-07-10 19:20] LABS: Anisocytosis Slight; Basophils % (A) 0 %; Eosinophils # (A) 0.1 k/uL (0-0.7); Eosinophils % (A) 3 %; HGB 10.4 gm/dL (11.4-16.0); Lymphocytes # (A) 0.1 k/uL (1.0-4.8); Lymphocytes % (A) 2 %; MCH 35.2 pg (25.0-35.0); MCHC 33.6 g/dL (31.0-37.0); MCV 104.8 fL (80.0-100.0); Macrocytosis Moderate; Monocytes # (A) 0.4 k/uL (0-1.0); Monocytes % (A) 9 %; Neutrophils # (A) 3.3 k/uL (1.3-7.7); Neutrophils % (A) 82 %; RBC 2.96 m/uL (3.80-5.40); RDW 16.7 % (11.5-15.5)
[2018-07-10 19:22] LABS: Platelet Count 45 k/uL (150-450)
--- NOTE | 2018-07-10 20:08 | CT ---
EXAMINATION TYPE: CT abdomen pelvis w con DATE OF EXAM: 07/10/2018 COMPARISON: 03/08/2017 HISTORY: Abnormal labs, Hx of non-hodgkins lymphoma CT DLP: 2229.2 mGycm Automated exposure control for dose reduction was used. TECHNIQUE: Helical acquisition of images was performed from the lung bases through the pelvis. CONTRAST: Performed without Oral Contrast and with IV Contrast, patient injected with 100 mL of Isovue 300. FINDINGS: Lung bases are clear of infiltrate. There is mild subsegmental atelectasis in the lower lobes. There is mild ectasia of the biliary tree. There is a dilated common bile duct measures 1.8 cm. Gallb ladder is absent. Spleen is enlarged and measures 16.8 cm. There is no pancreatic mass. The stomach a ppears normal. There is no focal liver defect. There is no adrenal mass. There is 3.5 cm cortical cyst posterior left kidney. There is no hydronephr osis. Kidneys show satisfactory contrast opacification. Ureters are not dilated. There is no retroper itoneal adenopathy. There is stent in the left iliac artery. Bladder distends smoothly. There is no f ree fluid in the pelvis. There is no inguinal hernia. Appendix is not seen. There is no sign of appendicitis. There is no ascites. There is no sign of free air. There is increased density at the root of the small bowel mesentery that measures 3.5 cm. There is mi xed density with calcification. There is no intestinal wall thickening. There is no sign of a bowel obstruction. There is 50% compression deformity of L5 vertebral body with osteosclerosis. IMPRESSION: THERE IS POORLY MARGINATED MASSLIKE AREA INVOLVING THE ROOT OF THE SMALL BOWEL MESENTERY SLIGHTLY IMP ROVED COMPARED TO LAST EXAM AND COULD RELATE TO LYMPHOMATOUS INVOLVEMENT. THERE IS NEW MILD L5 COMPRESSION FRACTURE COMPARED TO OLD EXAM. MODERATE SPLENOMEGALY UNCHANGED. MILD CARDIOMEGALY IS INCREASED COMPARED TO LAST EXAM. MILDLY DILATED BILIARY TREE SLIGHTLY INCREASED COMPARED TO LAST EXAM. NO OBSTRUCTING MASS IDENTIFIED.
[2018-07-10 20:48] LABS: Appearance,Urine Cloudy (Clear); Bacteria,Urine Few /hpf; Bilirubin,Urine Negative (Negative); Blood,Urine Negative (Negative); Color,Urine Yellow; Glucose,Urine (UA) Negative (Negative); Ketones,Urine 1+ (Negative); Leukocyte Esterase,Urine Trace (Negative); Mucus,Urine Few /hpf; Nitrite,Urine Negative (Negative); PH, Urine 6.5 (5.0-8.0); Protein,Urine Trace (Negative); RBC,Urine 33 /hpf (0-5); Specific Gravity,Urine 1.031 (1.001-1.035); Squamous Epithelial Cell,Urine 4 /hpf (0-4); WBC,Urine 4 /hpf (0-5)
[2018-07-10] MEDS ORDERED: NALOXONE 0.4 MG/ML 1 ML VIAL IV PRN (21:31)
[2018-07-10] MEDS ORDERED: POTASSIUM CHLORIDE ER 20 MEQ TAB.ER PO STA (21:35)
[2018-07-10] MEDS: MORPHINE SULFATE 4 MG/ML SYRINGE IV PRN (21:51)
[2018-07-10 23:51] VITALS: BMI 47.5
[2018-07-11] MEDS: SODIUM CHLORIDE 0.9% 1,000 ML IV SCH ×4 (00:11→22:46)
[2018-07-11] MEDS: MORPHINE SULFATE 4 MG/ML SYRINGE IV PRN ×4 (04:50→21:06)
[2018-07-11 08:44] LABS: Magnesium 1.7 mg/dL (1.6-2.3); Potassium 3.5 mmol/L (3.5-5.1)
[2018-07-11] MEDS: ONDANSETRON 4 MG/2 ML VIAL IVP PRN ×2 (10:44→17:55)
[2018-07-11 12:22] LABS: Glucose,Whole Blood 101 mg/dL (75-99)
[2018-07-11] MEDS: INSULIN ASPART (NovoLOG) 100 UNIT/ML VIAL SQ SCH ×3 (14:01→21:01)
[2018-07-11 17:46] LABS: Glucose,Whole Blood 157 mg/dL (75-99)
[2018-07-11 20:19] LABS: Glucose,Whole Blood 133 mg/dL (75-99)
[2018-07-11] MEDS: ACYCLOVIR 200 MG CAP PO SCH (20:59)
[2018-07-11] MEDS: ATORVASTATIN 40 MG TAB PO SCH (21:00)
[2018-07-11] MEDS: GABAPENTIN 300 MG CAP PO SCH (21:00)
[2018-07-11] MEDS: metroNIDAZOLE 500 MG TAB PO SCH (21:02)
[2018-07-11] MEDS: LISINOPRIL 20 MG TAB PO SCH (21:02)
[2018-07-11] MEDS: GLIMEPIRIDE 2 MG TAB PO SCH (21:04)
[2018-07-11] MEDS: SERTRALINE 100 MG TAB PO SCH (21:04)
--- NOTE | 2018-07-11 22:56 | P.HPIM ---
History of Present Illness H&P Date: 07/11/18 Chief Complaint: diarrhea, cough, dehydration. NHL on chemotherapy The pt is a 57 yr old WF, initially evaluated in October 2016, found to have a large abdominal & retroperitoneal mass, she was transferred to a tertiary care facility for work up, had core biopsy of mesenteric mass on 12/27/16 revealing Grade II Follicular Lymphoma, staging PET showed extensive involvement with lymphoma above & below diaphragm as well as suspicious lesion in the liver, stage IV-B, she had 6 cycles of R-CHOP with treatment follow up PET 80%-90% reduction in metabolic uptake. She completed R-CHOP in 03/30, and was then placed on maintenance Rituxan. She is on Xarelto for known history of DVT factor V Leiden also has a history of breast mass with biopsy. She developed progression in 03/31, and was started on Bendamustine - Rituxan. She has received recent treatment with Rituxan and bendamustine, she is status post 3 cycles. The patient was admitted after cycle 2, with marked weakness, and febrile neutropenia. She had somewhat prolonged recovery of counts and required G-CSF support, and antibiotics. Post discharge, she was resumed on her regimen, this time with G-CSF support. Last cycle was on 07/01 and 07/02. . The patient was seen in the office yesterday, and complained of multiple loose stools over the past 3-4 days. She stated that she had been having elevated up to 12-14 bowel movements. She also complained of nausea and 2-3 episodes of vomiting over the last 2-3 days. He complained a markedly decreased appetite, and progressive weakness. She also complained of sore and scratchy throat, upper airway congestion and cough, which is mostly dry. She stated that she had been feeling "hot and cold" though we do not have any documented fevers. She was sent in to the emergency room, and admitted for further management. Review of Systems Constitutional: Reports fatigue, Reports fever (??), Reports weakness Eyes: denies blurred vision, denies pain Ears: deny: decreased hearing, ear discharge, earache, tinnitus Ears, nose, mouth and throat: Reports sore throat Cardiovascular: Reports decreased exercise tolerance Respiratory: Reports congestion, Reports cough Gastrointestinal: Reports diarrhea, Reports nausea, Reports vomiting Genitourinary: Denies dysuria, Denies hematuria Menstruation: Reports postmenopausal Musculoskeletal: Reports muscle weakness Integumentary: Denies pruritus, Denies rash Neurological: Reports weakness Psychiatric: Denies anxiety, Denies depression Endocrine: Reports fatigue Hematologic/Lymphatic: Reports as per HPI Past Medical History Past Medical History: Cancer, Chest Pain / Angina, Diabetes Mellitus, Deep Vein Thrombosis (DVT), Hyperlipidemia, Hypertension, Sleep Apnea/CPAP/BIPAP Additional Past Medical History / Comment(s): 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 History of Any Multi-Drug Resistant Organisms: ESBL Date of last positivie culture/infection: 05/12/17 MDRO Source:: ESBL URINE Past Surgical History: Adenoidectomy, Appendectomy, Back Surgery, Cholecystectomy, Hysterectomy, Orthopedic Surgery, Tonsillectomy Additional Past Surgical History / Comment(s): Recent abdominal mass biopsy x 2 , BMA, EGD/colonoscopy at [facility], bilateral carpal tunnel release, thyroidectomy (one tiny piece unable to remove), ORIF rt ankle, stents in LLE/ vascular stent, cervical surgery C4,C6, thyroidectomy Past Anesthesia/Blood Transfusion Reactions: Postoperative Nausea & Vomiting ( PONV) Additional Past Anesthesia/Blood Transfusion Reaction / Comment(s): blood transfusion(December 2015) "pt stated an hour after transfusion became very nauseated and had quit a bit of vomiting" Past Psychological History: No Psychological Hx Reported Additional Psychological History / Comment(s): lives with family home with her . Is living in [place]. That is where they adopted the 2 youngest foster children who are now 15. Lifelong nonsmoker. No cigarette or alcohol use. no recent travels. No pets in the home. No experience Smoking Status: Never smoker Past Alcohol Use History: None Reported Past Drug Use History: None Reported - Past Family History Mother Family Medical History: Diabetes Mellitus, Renal Disease Additional Family Medical History / Comment(s): Mother of kidney failure at the age of 69yrs. Father Family Medical History: Diabetes Mellitus Additional Family Medical History / Comment(s): Father of a "sugar coma" when he was 72 yrs old. Brother(s) Family Medical History: Cancer Sister(s) Family Medical History: Myocardial Infarction ([place]) Additional Family Medical History / Comment(s): Patient has 3 sisters and 2 of them are diabetic. Son(s) Family Medical History: No Reported History (Patient has 4 sons no major medical problems) Additional Family Medical History / Comment(s): Patient has 4 sons with no major medical problems. Daughter(s) Family Medical History: Deep Vein Thrombosis (DVT) Additional Family Medical History / Comment(s): Patient has a daughter with DVT. Medications and Allergies Home Medications Medication Instructions Recorded Confirmed Type Sertraline [Zoloft] 200 mg PO HS 03/07/15 07/10/18 History Atorvastatin [Lipitor] 40 mg PO DAILY 02/10/16 07/10/18 History Levothyroxine Sodium [Synthroid] 137 mcg PO DAILY 08/17/16 07/10/18 History Glimepiride [Amaryl] 2 mg PO BID 12/19/16 07/10/18 History Tolterodine ER [Detrol LA] 4 mg PO DAILY 03/30/17 07/10/18 History Acyclovir 400 mg PO BID 06/07/18 07/10/18 History Gabapentin [Neurontin] 300 mg PO HS 06/07/18 07/10/18 History HYDROcodone/APAP 10-325MG [[place] 1 tab PO Q6H PRN 06/07/18 07/10/18 History 10-325] Lisinopril [Zestril] 20 mg PO DAILY 06/07/18 07/10/18 History Omeprazole [PriLOSEC] 20 mg PO AC-BID 06/07/18 07/10/18 History Prochlorperazine [Compazine] 10 mg PO Q6H PRN 06/07/18 07/10/18 History Allergies Allergy/AdvReac Type Severity Reaction Status Date / Time Anesthetics - Amide Type AdvReac Nausea & Verified 07/10/18 17:42 Vomiting & Diarrhea Anesthetics - Jonna Type- AdvReac Nausea & Verified 07/10/18 17:42 Parabens Vomiting & Diarrhea oxycodone [From OxyContin] AdvReac Nausea & Verified 07/10/18 17:42 Vomiting Physical Exam Vitals: Vital Signs Temp Pulse Pulse Resp BP BP Pulse Ox 07/11/18 12:30 98.3 F 75 18 139/75 93 L 07/11/18 05:28 97.1 F L 83 16 133/61 95 07/10/18 23:20 97.3 F L 81 16 118/56 97 07/10/18 22:21 74 16 140/59 98 Intake and Output 07/11/18 07/11/18 07/11/18 06:59 14:59 22:59 Intake Total 590 1560 Output Total 0 100 Balance 590 1560 -100 Intake: Intake, IV Titration 960 Amount Sodium Chloride 0.9% 1, 960 000 ml @ 120 mls/hr IV . Q8H20M BETTE Rx#:[id number] Oral 590 600 Output: Stool 100 Urine/Stool Mix 0 Other: Voiding Method Toilet Toilet Toilet # Voids 2 2 2 # Bowel Movements 0 1 - Constitutional General appearance: no acute distress - EENT Eyes: EOMI, PERRLA ENT: hearing grossly normal, normal oropharynx - Neck Neck: no lymphadenopathy Thyroid: bilateral: normal size - Respiratory Respiratory: bilateral: CTA - Cardiovascular Rhythm: regular Heart sounds: normal: S1, S2 - Gastrointestinal General gastrointestinal: normal bowel sounds, soft - Integumentary Integumentary: normal - Neurologic Neurologic: CNII-XII intact - Musculoskeletal Musculoskeletal: strength equal bilaterally - Psychiatric Psychiatric: A&O x's 3, appropriate affect Results CBC & Chem 7: 07/10/18 18:30 07/11/18 07:29 Labs: Abnormal Lab Results - Last 24 Hours (Table) 07/10/18 07/11/18 07/11/18 Range/Units 20:18 12:20 17:45 POC Glucose (mg/dL) 101 H 157 H (75-99) mg/dL Urine Appearance Cloudy H (Clear) Urine Protein Trace H (Negative) Urine Ketones 1+ H (Negative) Ur Leukocyte Esterase Trace H (Negative) Urine RBC 33 H (0-5) /hpf Urine Bacteria Few H (None) /hpf Urine Mucus Few H (None) /hpf Microbiology - Last 24 Hours (Table) 07/10/18 21:00 Urine Culture - Preliminary Urine,Clean Catch Chest x-ray: report reviewed CT scan - abdomen: report reviewed CT scan - pelvis: report reviewed Thrombosis Risk Factor Assmnt - DVT/VTE Prophylaxis DVT/VTE Prophylaxis: Mechanical Prophylaxis ordered - Choose All That Apply Any of the Below Risk Factors Present?: Yes Each Factor Represents 1 point: Age 41-60 years, Obesity (BMI >25) Other Risk Factors: Yes Each Risk Factor Represents 2 Points: Malignancy Other congenital or acquired thrombophilia - If yes, enter type in comment: No Thrombosis Risk Factor Assessment Total Risk Factor Score: 4 Thrombosis Risk Factor Assessment Level: Moderate Risk Assessment and Plan (1) Diarrhea Narrative/Plan: The patient has complained of diarrhea with prior chemotherapy cycles also. C. difficile was tested and was negative. She states that she only had 2 small bowel movement this morning. At this time a viral syndrome, versus chemotherapy effect is suspected.however , diarrhea is not a common side effect of her regimen. Monitor symptoms closely. Influenza thing will be ordered. Infectious diseases service will be consulted Check immunoglobulin levels, and supplement if needed Current Visit: Yes Status: Acute Priority: High Code(s): R19.7 - DIARRHEA , UNSPECIFIED SNOMED Code(s): 16118322 (2) Cough Narrative/Plan: This is mostly nonproductive. Chest x-ray and physical exam were unrevealing. This, in conjunction with the diarrhea makes a possible viral syndrome more likely. ID has been consulted. Defer to them as to need for any antibiotic. Influenza testing has been ordered as noted. Current Visit: No Status: Acute Code(s): R05 - COUGH SNOMED Code(s): 10338945 (3) Antineoplastic chemotherapy induced pancytopenia Narrative/Plan: This is been an ongoing issue for her. Actually this admission, counts are in a safe range. Continue to monitor with supportive transfusions or growth factors if needed Current Visit: No Status: Acute Priority: High Code(s): D61.810 - ANTINEOPLASTIC CHEMOTHERAPY INDUCED PANCYTOPENIA; T45.1X5A - ADVERSE EFFECT OF ANTINEOPLASTIC AND IMMUNOSUP DRUGS, INIT SNOMED Code(s): 123432492783593 (4) Dehydration Narrative/Plan: on evaluation in the office, and in the ER the patient was felt to be dehydrated clinically. she has been on IV hydration. Currently by physical exam and labs hydration status appears to be satisfactory. Continue IV hydration throughout hospital stay Current Visit: Yes Status: Acute Code(s): E86.0 - DEHYDRATION SNOMED Code( s): 56457953 (5) Lymphoma Narrative/Plan: Diagnostic and therapeutic circumstances as described. She will resume treatment as an outpatient once acute condition is satisfactorily resolved Current Visit: No Status: Acute Code(s): C85.90 - NON-HODGKIN LYMPHOMA, UNSPECIFIED, UNSPECIFIED SITE SNOMED Code(s): 281960629 Plan: Due to the patient's complicated medical history, and ongoing medical issues , and inpatient stay of 2 nights or greater is anticipated at this time
[2018-07-12] MEDS: MORPHINE SULFATE 4 MG/ML SYRINGE IV PRN ×2 (04:47→09:24)
[2018-07-12] MEDS: LEVOTHYROXINE 137 MCG TAB PO SCH (06:00)
[2018-07-12 07:06] LABS: Glucose,Whole Blood 100 mg/dL (75-99)
[2018-07-12] MEDS: INSULIN ASPART (NovoLOG) 100 UNIT/ML VIAL SQ SCH ×4 (07:11→21:17)
[2018-07-12 07:50] LABS: Anisocytosis Slight; Basophils % (A) 0 %; Eosinophils # (A) 0.1 k/uL (0-0.7); Eosinophils % (A) 4 %; HCT 28.8 % (34.0-46.0); Hypochromasia Marked; Lymphocytes # (A) 0.1 k/uL (1.0-4.8); Lymphocytes % (A) 4 %; MCH 33.9 pg (25.0-35.0); MCHC 31.1 g/dL (31.0-37.0); MCV 108.9 fL (80.0-100.0); Macrocytosis Marked; Mean Platelet Volume 9.3; Monocytes # (A) 0.2 k/uL (0-1.0); Monocytes % (A) 12 %; Neutrophils # (A) 1.4 k/uL (1.3-7.7); Neutrophils % (A) 77 %; RBC 2.64 m/uL (3.80-5.40); RDW 16.6 % (11.5-15.5); WBC 1.8 k/uL (3.8-10.6)
[2018-07-12 07:55] LABS: Platelet Count 41 k/uL (150-450)
[2018-07-12 08:04] LABS: ALT 39 U/L (9-52); AST 43 U/L (14-36); Albumin 2.4 g/dL (3.5-5.0); Alkaline Phosphatase 181 U/L (38-126); Anion Gap 4 mmol/L; Blood Urea Nitrogen 10 mg/dL (7-17); Calcium 7.8 mg/dL (8.4-10.2); Carbon Dioxide 28 mmol/L (22-30); Chloride 111 mmol/L (98-107); Glucose 89 mg/dL (74-99); Potassium 3.4 mmol/L (3.5-5.1); Sodium 143 mmol/L (137-145); Total Bilirubin 1.2 mg/dL (0.2-1.3); Total Protein 4.4 g/dL (6.3-8.2)
[2018-07-12] MEDS: metroNIDAZOLE 500 MG TAB PO SCH ×3 (08:05→21:27)
[2018-07-12] MEDS: OXYBUTYNIN 10 MG TAB.ER.24 PO SCH (08:05)
[2018-07-12] MEDS: GLIMEPIRIDE 2 MG TAB PO SCH ×2 (08:05→16:45)
[2018-07-12] MEDS: ACYCLOVIR 200 MG CAP PO SCH ×2 (08:05→21:26)
[2018-07-12] MEDS: SODIUM CHLORIDE 0.9% 1,000 ML IV SCH ×4 (08:05→23:37)
[2018-07-12] MEDS: PANTOPRAZOLE 40 MG TABLET PO SCH ×2 (08:05→16:45)
--- NOTE | 2018-07-12 09:11 | CONS ---
CONSULTATION DATE OF SERVICE: 07/11/2018 REASON FOR FOLLOWUP: Infection, diarrhea. HISTORY OF PRESENT ILLNESS: The patient is a 57-year-old female who was recently admitted to this facility. Patient was diagnosed Cibrobacter urinary tract infection. Patient overall improved and was discharged home. The patient above presenting back to the ER at [facility] yesterday with the chief complaints of fatigue and going on for 6 days. The patient did not have any diarrhea. On 2 days ago with multiple loose stools, though denies any blood or mucus in the stool. Subsequently the abdominal pain with no radiation. The patient did have 2 episodes of vomiting at home. With these symptoms, the patient presented to the ER the patient was seen by the physician on arrival to the ER. The patient has been afebrile. Patient has no leukocytosis. White count was normal. UA was trace accessory with 3 RBC only 4 WBC. Influenza serology was negative. The patient did have for CT scan which came back negative. A CT pf abdomen and pelvis was completed which did not show any evidence of pneumonia. There was a poorly marginated most likely area involving the root of the small bowel isn't a insulin mild L5 compression fracture which was new compared with the exam and moderate splenomegaly. The patient has been in the hospital 15 consulted for further recommendation regarding antibiotic therapy in this patient currently with no fever or elevated white count as mentioned above. REVIEW OF SYSTEMS: She has positive points have been mentioned in HPI. Rest of the systems have been negative thus posterior. MEDICAL HISTORY: 07/13/2013 for stage 4B diabetes mellitus DVT, factor 5 Leiden deficiency, hypertension, hyperlipidemia. History pf ESBL E coli urinary tract infection. PAST SURGICAL HISTORY: Had hysterectomy, appendectomy, back surgery, cholecystectomy, hysterectomy, tonsillectomy, and MediPort of chest wall. SOCIAL HISTORY: No history of smoking, drinking, or drug use. FAMILY HISTORY: Mother has diabetes who from renal failure age of 59. Father history of diabetes as well. Images bruit to the cervix oxycodone. MEDICATION: Medications include the patient is currently on [place] Lipitor 10 number NovoLog. Synthroid, Zestril, morphine sulfate, Narcan, Zofran, the TURP, Protonix Zoloft. PHYSICAL EXAMINATION: Blood pressure 124/66 with a pulse of 72, temperature 98, she is 95% on room air. General; description is a middle-aged female lying in bed in no distress. No tachypnea or accessory muscle for respiration use. HEENT: Shows slight pallor. No scleral icterus. Oral mucosa is dry. No pharyngeal erythema. The patient neck trachea central no thyromegaly. Lungs unlabored breathing clear to auscultation with crackles heart S1, S2. Regular rate and rhythm soft no tenderness. No guarding. Patient will be extremities above inflammation breast mass palpable neurological patient is awake, alert, oriented and affect normal. LABS: Hemoglobin is 10.4, white count 4.0, BUN of 13, creatinine 0.63. (normal urine negative influenza serology decreased to [address] abdomen and pelvis with pressure 1. IMPRESSION/PLAN: Admission hospital with generalized weakness significant abdominal pain diarrhea as well consult will be with question of possible acute gastroenteritis and a question of possible viral subjective etiology. The patient's stool for C difficile has been negative, had no evidence of any abscess on the abdominal CT. PLAN: 1. Will request stool culture. 2. Will empirically add Rocephin 1 g and Flagyl 500 mg every 8 hours. 3. Will follow on her clinical condition and culture to further adjust medication if needed. Thank you for this consultation. Will follow the patient along with you. MMODL / IJN: [id number] /
[2018-07-12 11:04] LABS: Glucose,Whole Blood 123 mg/dL (75-99)
[2018-07-12 12:47] LABS: Immunoglobulin A 73.1 mg/dL (60.0-350.0); Immunoglobulin M <16.9 mg/dL (40.0-280.0)
[2018-07-12 17:25] LABS: Glucose,Whole Blood 172 mg/dL (75-99)
[2018-07-12] MEDS: HYDROcodone/APAP 10-325MG 1 EACH TAB PO PRN (17:47)
[2018-07-12 21:21] LABS: Glucose,Whole Blood 119 mg/dL (75-99)
[2018-07-12] MEDS: GABAPENTIN 300 MG CAP PO SCH (21:26)
[2018-07-12] MEDS: ATORVASTATIN 40 MG TAB PO SCH (21:26)
[2018-07-12] MEDS: SERTRALINE 100 MG TAB PO SCH (21:27)
[2018-07-12] MEDS: LISINOPRIL 20 MG TAB PO SCH (21:27)
--- NOTE | 2018-07-12 22:47 | PN ---
PROGRESS NOTE DATE OF SERVICE: 07/12/2018. REASON FOR FOLLOWUP: 1. Acute . 2. Bronchitis. INTERVAL HISTORY: The patient is currently afebrile. The patient is breathing comfortably. The patient did have a cough. Did use intensity and the mid to drainage. No chest pain. No abdominal pain. The patient has slight nausea, but no perry vomiting or diarrhea reported. PHYSICAL EXAMINATION: Blood pressure 144/60 with a pulse of 71, temperature 98. She is 96% on room air. General description is an elderly white female up in the bed in no distress. Respiratory system: Unlabored breathing. Clear to auscultation. No wheeze or crackles. Heart S1, S2. Regular rate and rhythm. ABDOMEN: Soft, no tenderness. LABS: White count 1.8 with a BUN of 23, creatinine 0.61. Stool for C difficile has been negative. Influenza A PCR was negative. Urine is not significantly positive blood culture with a number breast cultures currently pending. DIAGNOSTIC IMPRESSION AND PLAN: Patient admitted to the hospital acute nausea, vomiting and diarrhea with question of possible viral gastritis source is bacterial. The patient seemed to have shown overall improvement in her GI symptoms with Rocephin and Flagyl that the done short course of oral Keflex for 1 week. The patient continues to improve. Thank you end. MMARNOLL / IJN: [id number] /
--- NOTE | 2018-07-12 23:30 | P.PN ---
Subjective Progress Note Date: 07/12/18 The pt has had only 2 BMs today, both at least partially formed. She has a dry cough, which has not been too prominent per nursing. No f/c/n/v. She is tolerating her diet well. Objective - Vital Signs Vital signs: Vital Signs Temp 98 F 07/12/18 21:00 Pulse 71 07/12/18 21:00 Resp 17 07/12/18 21:00 BP 144/68 07/12/18 21:00 Pulse Ox 96 07/12/18 21:00 Intake & Output 07/12/18 07/12/18 07/13/18 06:59 18:59 06:59 Intake Total 2420 1620 775 Output Total 700 1325 200 Balance 1720 295 575 Intake: Intake, IV Titration 1180 1390 480 Amount Sodium Chloride 0.9% 1, 1080 1340 480 000 ml @ 120 mls/hr IV . Q8H20M BETTE Rx#:[id number] cefTRIAXone 1 gm In 100 50 Sodium Chloride 0.9% 50 ml @ 100 mls/hr IVPB Q24HR BETTE Rx#:[id number] Oral 1240 230 295 Output: Urine 700 1075 200 Stool 0 Urine/Stool Mix 250 Other: Voiding Method Toilet # Voids 1 2 1 # Bowel Movements 1 1 - Constitutional General appearance: Present: no acute distress - EENT Eyes: Present: EOMI ENT: Present: hearing grossly normal, normal oropharynx - Respiratory Respiratory: bilateral: CTA - Cardiovascular Rhythm: regular Heart sounds: normal: S1, S2 - Gastrointestinal General gastrointestinal: Present: normal bowel sounds, soft - Integumentary Integumentary: Present: normal - Neurologic Neurologic: Present: CNII-XII intact - Musculoskeletal Musculoskeletal: Present: strength equal bilaterally - Psychiatric Psychiatric: Present: A&O x's 3, appropriate affect - Labs CBC & Chem 7: 07/12/18 07:14 07/12/18 07:14 Labs: Abnormal Lab Results - Last 24 Hours (Table) 07/11/18 07/12/18 07/12/18 Range/Units 07:29 07:05 07:14 WBC 1.8 L (3.8-10.6) k/uL RBC 2.64 L (3.80-5.40) m/uL Hgb 9.0 L (11.4-16.0) gm/dL Hct 28.8 L (34.0-46.0) % MCV 108.9 H (80.0-100.0) fL RDW 16.6 H (11.5-15.5) % Plt Count 41 L (150-450) k/uL Lymphocytes # 0.1 L (1.0-4.8) k/uL Potassium (3.5-5.1) mmol/L Chloride (98-107) mmol/L POC Glucose (mg/dL) 100 H (75-99) mg/dL Calcium (8.4-10.2) mg/dL AST (14-36) U/L Alkaline Phosphatase (38-126) U/L Total Protein (6.3-8.2) g/dL Albumin (3.5-5.0) g/dL IgG 514.0 L (700.0-1600.0) mg/dL IgM <16.9 L (40.0-280.0) mg/dL 07/12/18 07/12/18 07/12/18 Range/Units 07:14 11:02 17:23 WBC (3.8-10.6) k/uL RBC (3.80-5.40) m/uL Hgb (11.4-16.0) gm/dL Hct (34.0-46.0) % MCV (80.0-100.0) fL RDW (11.5-15.5) % Plt Count (150-450) k/uL Lymphocytes # (1.0-4.8) k/uL Potassium 3.4 L (3.5-5.1) mmol/L Chloride 111 H (98-107) mmol/L POC Glucose (mg/dL) 123 H 172 H (75-99) mg/dL Calcium 7.8 L (8.4-10.2) mg/dL AST 43 H (14-36) U/L Alkaline Phosphatase 181 H (38-126) U/L Total Protein 4.4 L (6.3-8.2) g/dL Albumin 2.4 L (3.5-5.0) g/dL IgG (700.0-1600.0) mg/dL IgM (40.0-280.0) mg/dL 07/12/18 Range/Units 21:01 WBC (3.8-10.6) k/uL RBC (3.80-5.40) m/uL Hgb (11.4-16.0) gm/dL Hct (34.0-46.0) % MCV (80.0-100.0) fL RDW (11.5-15.5) % Plt Count (150-450) k/uL Lymphocytes # (1.0-4.8) k/uL Potassium (3.5-5.1) mmol/L Chloride (98-107) mmol/L POC Glucose (mg/dL) 119 H (75-99) mg/dL Calcium (8.4-10.2) mg/dL AST (14-36) U/L Alkaline Phosphatase (38-126) U/L Total Protein (6.3-8.2) g/dL Albumin (3.5-5.0) g/dL IgG (700.0-1600.0) mg/dL IgM (40.0-280.0) mg/dL Microbiology - Last 24 Hours (Table) 07/10/18 21:00 Urine Culture - Final Urine,Clean Catch Klebsiella oxytoca 07/10/18 18:30 Blood Culture - Preliminary Blood No Growth after 48 hours 07/11/18 18:05 Stool Culture - Preliminary Stool Assessment and Plan (1) Diarrhea Narrative/Plan: This has been quite mild inpt, and much less than claimed by the pt at home. This was confirmed with nursing. C diff and influenza are negative. Case d/e ID. She was started empirically on Flagyl and Rocephin. If stool cultures are negative, ID will likely clear her for discharge on 07/13/18. Defer to them for outp antibiotic recommendations, if any Current Visit: Yes Status: Acute Priority: High Code(s): R19.7 - DIARRHEA , UNSPECIFIED SNOMED Code(s): 32178524 (2) Cough Narrative/Plan: This has not been very prominent either. No evidence of pneumonia. Influenza testing is negative. This likely represents an URTI, probably viral Current Visit: No Status: Acute Code(s): R05 - COUGH SNOMED Code(s): 12579325 (3) Antineoplastic chemotherapy induced pancytopenia Narrative/Plan: Counts are stable in a safe range. Continue to monitor with supplementation as needed Current Visit: No Status: Acute Priority: High Code(s): D61.810 - ANTINEOPLASTIC CHEMOTHERAPY INDUCED PANCYTOPENIA; T45.1X5A - ADVERSE EFFECT OF ANTINEOPLASTIC AND IMMUNOSUP DRUGS, INIT SNOMED Code(s): 166630228469419 (4) Dehydration Narrative/Plan: This seems to be corrected. Her labs, PE , as well as vitals indicate the same. She is tolerating her diet. Continue hydration, while inpt Current Visit: Yes Status: Acute Code(s): E86.0 - DEHYDRATION SNOMED Code( s): 59333704 (5) Lymphoma Narrative/Plan: Resume chemo as outpt, once acute condition resolves Current Visit: No Status: Acute Code(s): C85.90 - NON-HODGKIN LYMPHOMA, UNSPECIFIED, UNSPECIFIED SITE SNOMED Code(s): 516683589
[2018-07-13 05:56] VITALS: PULSE 68
[2018-07-13] MEDS: LEVOTHYROXINE 137 MCG TAB PO SCH (06:03)
[2018-07-13 07:10] LABS: Glucose,Whole Blood 76 mg/dL (75-99)
[2018-07-13] MEDS: metroNIDAZOLE 500 MG TAB PO SCH (07:46)
[2018-07-13] MEDS: PANTOPRAZOLE 40 MG TABLET PO SCH (07:46)
[2018-07-13] MEDS: GLIMEPIRIDE 2 MG TAB PO SCH (07:46)
[2018-07-13] MEDS: ACYCLOVIR 200 MG CAP PO SCH (07:46)
[2018-07-13] MEDS: OXYBUTYNIN 10 MG TAB.ER.24 PO SCH (07:46)
[2018-07-13] MEDS: SODIUM CHLORIDE 0.9% 1,000 ML IV SCH (07:47)
[2018-07-13] MEDS: INSULIN ASPART (NovoLOG) 100 UNIT/ML VIAL SQ SCH ×2 (07:47→12:37)
[2018-07-13 07:48] LABS: Anisocytosis Slight; Basophils % (A) 0 %; Eosinophils # (A) 0.1 k/uL (0-0.7); Eosinophils % (A) 4 %; HGB 9.2 gm/dL (11.4-16.0); Hypochromasia Moderate; Lymphocytes # (A) 0.1 k/uL (1.0-4.8); Lymphocytes % (A) 4 %; MCH 34.1 pg (25.0-35.0); MCHC 31.8 g/dL (31.0-37.0); MCV 107.4 fL (80.0-100.0); Macrocytosis Marked; Mean Platelet Volume 9.4; Monocytes # (A) 0.1 k/uL (0-1.0); Monocytes % (A) 11 %; Neutrophils % (A) 78 %; RDW 16.2 % (11.5-15.5)
[2018-07-13 07:49] LABS: ALT 35 U/L (9-52); AST 41 U/L (14-36); Albumin 2.4 g/dL (3.5-5.0); Alkaline Phosphatase 184 U/L (38-126); Anion Gap 4 mmol/L; Blood Urea Nitrogen 9 mg/dL (7-17); Carbon Dioxide 26 mmol/L (22-30); Chloride 113 mmol/L (98-107); Glucose 73 mg/dL (74-99); Potassium 3.6 mmol/L (3.5-5.1); Sodium 143 mmol/L (137-145); Total Bilirubin 1.1 mg/dL (0.2-1.3); Total Protein 4.4 g/dL (6.3-8.2)
[2018-07-13 08:02] LABS: Platelet Count 38 k/uL (150-450)
[2018-07-13 08:58] LABS: WBC 1.2 k/uL (3.8-10.6)
[2018-07-13] MEDS: HYDROcodone/APAP 10-325MG 1 EACH TAB PO PRN (10:16)
[2018-07-13 11:30] LABS: Glucose,Whole Blood 223 mg/dL (75-99)
[2018-07-13 11:57] VITALS: BP 156/75; RESP 20; TEMP 98.2
--- NOTE | 2018-07-13 13:36 | DS ---
DISCHARGE SUMMARY DISCHARGE DIAGNOSES: 1. Dehydration, resolved. 2. Diarrhea, improved. 3. Thrombocytopenia, improved. 4. Weakness, improved. 5. Lymphoma, undergoing chemotherapy. 6. Diabetes mellitus. 7. Hypertension. 8. Sleep apnea. DISCHARGE MEDICATIONS: Discharge medications are reviewed and documented in her electronic record. DISCHARGE CONDITION: Stable. DISCHARGE DESTINATION: Home. DISCHARGE INSTRUCTIONS: To follow up with Dr. Balderrama next week at the office. HOSPITAL COURSE: Vilma is a very pleasant 57-year-old lady, very well known to our practice. 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 She was treated with R-CHOP regimen and she had a very good response to it. However, recently she had disease progression and was started BR regimen. She has 3 cycles so far. She was admitted to the hospital because of ongoing diarrhea, tiredness and weakness. Please refer to H&P for further details. The patient was given IV hydration in the hospital and she felt better. Also, she is ambulating better. Her diarrhea has improved. Also she was found to have to be thrombocytopenic, and her platelet count remained relatively stable. She is also leukopenic; however, without any significant neutropenia. She remained afebrile during her hospital stay. She is ambulating well. She had soft stool this morning without any diarrhea. She is ambulating well, eating well. No fever or chills. She is being discharged home today in stable condition with the above medication and above instructions. MMODL / IJN: [id number] /
== END 2018-07-13 14:50 | disposition home or self-care (01) ==
LOC: EC 16:00 → 3NMEDONC 20:55
PROVIDERS: ADMIT Internal Medicine Hematology & Oncology; ATTEND Internal Medicine Hematology & Oncology
DX: R19.7 Diarrhea, unspecified (principal); E11.9 Type 2 diabetes mellitus without complications; E78.5 Hyperlipidemia, unspecified; E86.0 Dehydration; E87.6 Hypokalemia; D61.810 Antineoplastic chemotherapy induced pancytopenia; G47.33 Obstructive sleep apnea (adult) (pediatric); E03.9 Hypothyroidism, unspecified; C85.90 Non-Hodgkin lymphoma, unspecified, unspecified site; C77.9 Secondary and unspecified malignant neoplasm of lymph node, unspecified; R50.81 Fever presenting with conditions classified elsewhere; D68.51 Activated protein C resistance; J40 Bronchitis, not specified as acute or chronic; M48.56XA Collapsed vertebra, not elsewhere classified, lumbar region, initial encounter for fracture; I10 Essential (primary) hypertension; Z79.01 Long term (current) use of anticoagulants; Z79.84 Long term (current) use of oral hypoglycemic drugs; Z79.890 Hormone replacement therapy; Z79.899 Other long term (current) drug therapy; T45.1X5A Adverse effect of antineoplastic and immunosuppressive drugs, initial encounter; Z87.440 Personal history of urinary (tract) infections; Z83.3 Family history of diabetes mellitus; Z86.718 Personal history of other venous thrombosis and embolism; Z90.710 Acquired absence of both cervix and uterus; Z82.49 Family history of ischemic heart disease and other diseases of the circulatory system
CPT/HCPCS: 96376 ×3; 96361 ×3; 96365; 96366 ×2; 96375; 99285; 36415; 80053 ×3; 82150; 83690; 83735; 84132; 85025 ×3; 81001; 87040; 87324; 82784 ×3; 87086; 87045; 87077; 87186; 87046; 87502; 71046; 74177; G0378 ×4; J2270 ×3; J2405 ×2; J0696 ×3; Q9967

== ENCOUNTER 2018-09-11 11:50 | Inpatient (IN) | payer MEDICARE ==
--- NOTE | 2018-09-11 13:09 | ED ---
General Adult HPI - General Source: patient Mode of arrival: wheelchair Limitations: physical limitation <Balbina Callahan - Last Filed: 09/11/18 16:49> <Alan Juarez - Last Filed: 09/11/18 17:07> - General Chief complaint: Urogenital Stated complaint: Bladder infection Time Seen by Provider: 09/11/18 12:17 - History of Present Illness Initial comments: 57-year-old female with past medical history of diabetes, hypertension, factor V, non-Hodgkin lymphoma per patient currently in remission x2 weeks presenting today for cc of lower midline abdominal pain that radiates to the back. Patient states she has had issues with frequent bladder infections in the past, she states her symptoms the past 2 days has felt similar and she had a urinalysis performed for her primary care provider yesterday. She states that this time she also had routine laboratory studies performed. Patient states they did not prescribe antibiotics, and were pending urine culture. Pt states that her symptoms persisted today. Pt states she has had some hematuria, denies dysuria urgency or frequency. Patient states she has also had some diarrhea she denies any melena or hematochezia. Patient admits to chills denies fever. Patient s tates her last doses of chemotherapy was 6 weeks prior by . Patient denies any recent radiation. Patient received a phone call from her primary care provider office in regards to laboratory studies., they stated patient WBC was .9 and patient states they mentioned other laboratory studies that she cannot recall were abnormal and she was told to come to the ER for evaluation. Upon arrival patient appears well there is not signs of acute distress. Pt denies upper back pain, leg pain, calf pain, LE swelling, nausea, vomiting, headache, dizziness, chest pain, dyspnea upon exertion, dyspnea or upper abdominal pain. Rremainig ROS (-). Upon arrival pt does not appear in acute distress. Temperature 99.9 remaining VS within acceptable limits. (Balbina Callahan) - Related Data Home Medications Medication Instructions Recorded Confirmed Sertraline [Zoloft] 200 mg PO HS 03/07/15 09/11/18 Atorvastatin [Lipitor] 40 mg PO HS 02/10/16 09/11/18 Levothyroxine Sodium [Synthroid] 137 mcg PO DAILY 08/17/16 09/11/18 Glimepiride [Amaryl] 2 mg PO BID 12/19/16 09/11/18 Tolterodine ER [Detrol LA] 4 mg PO DAILY 03/30/17 09/11/18 Acyclovir 400 mg PO BID 06/07/18 09/11/18 Gabapentin [Neurontin] 300 mg PO HS 06/07/18 09/11/18 HYDROcodone/APAP 10-325MG [[place] 1 tab PO Q6H PRN 06/07/18 09/11/18 10-325] Lisinopril [Zestril] 20 mg PO DAILY 06/07/18 09/11/18 Omeprazole [PriLOSEC] 20 mg PO AC-BID 06/07/18 09/11/18 Prochlorperazine [Compazine] 10 mg PO Q6H PRN 06/07/18 09/11/18 Acetaminophen/Diphenhydramine 1 tab PO HS PRN 09/11/18 09/11/18 [Tylenol PM 500-25mg] Cholestyramine (with Sugar) 4 gm PO HS 09/11/18 09/11/18 [Cholestyramine Powder] Cranberry Fruit Extract [Cranberry] 200 mg PO DAILY PRN 09/11/18 09/11/18 Diphenox-Atrop 2.5-0.025 mg 2 tab PO QID PRN 09/11/18 09/11/18 [Lomotil] Loratadine [Claritin] 10 mg PO DAILY 09/11/18 09/11/18 Ondansetron [Zofran] 4 mg PO Q6H PRN 09/11/18 09/11/18 Rivaroxaban [Xarelto] 20 mg PO DAILY 09/11/18 09/11/18 valACYclovir HCL [Valtrex] 1,000 mg PO DAILY PRN 09/11/18 09/11/18 Allergies Allergy/AdvReac Type Severity Reaction Status Date / Time Anesthetics - Amide Type AdvReac Nausea & Verified 09/11/18 13:11 Vomiting & Diarrhea Anesthetics - Jonna Type- AdvReac Nausea & Verified 09/11/18 13:11 Parabens Vomiting & Diarrhea oxycodone [From OxyContin] AdvReac Nausea & Verified 09/11/18 13:11 Vomiting Review of Systems ROS Other: All systems not noted in ROS Statement are negative. <Balbina Callahan - Last Filed: 09/11/18 16:49> ROS Other: All systems not noted in ROS Statement are negative. <Alan Juarez - Last Filed: 09/11/18 17:07> ROS Statement: Those systems with pertinent positive or pertinent negative responses have been documented in the HPI. 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 History of Any Multi-Drug Resistant Organisms: ESBL Date of last positivie culture/infection: 05/12/17 MDRO Source:: ESBL URINE Past Surgical History: Adenoidectomy, Appendectomy, Back Surgery, Cholecystectomy, Hysterectomy, Orthopedic Surgery, Tonsillectomy Additional Past Surgical History / Comment(s): Recent abdominal mass biopsy x 2, BMA, EGD/colonoscopy at [facility], bilateral carpal tunnel release, thyroidectomy (one tiny piece unable to remove), ORIF rt ankle, stents in LLE/va scular stent, cervical surgery C4,C6, thyroidectomy Past Anesthesia/Blood Transfusion Reactions: Postoperative Nausea & Vomiting (PONV) Additional Past Anesthesia/Blood Transfusion Reaction / Comment(s): blood transfusion(December 2015) "pt stated an hour after transfusion became very nauseated and had quit a bit of vomiting" Past Psychological History: No Psychological Hx Reported Smoking Status: Never smoker Past Alcohol Use History: None Reported Past Drug Use History: None Reported - Past Family History Mother Family Medical History: Diabetes Mellitus, Renal Disease Additional Family Medical History / Comment(s): Mother of kidney failure at the age of 69yrs. Father Family Medical History: Diabetes Mellitus Additional Family Medical History / Comment(s): Father of a "sugar coma" when he was 72 yrs old. Brother(s) Family Medical History: Cancer Sister(s) Family Medical History: Myocardial Infarction (NH) Additional Family Medical History / Comment(s): Patient has 3 sisters and 2 of them are diabetic. Son(s) Family Medical History: No Reported History (Patient has 4 sons no major medical problems) Additional Family Medical History / Comment(s): Patient has 4 sons with no major medical problems. Daughter(s) Family Medical History: Deep Vein Thrombosis (DVT) Additional Family Medical History / Comment(s): Patient has a daughter with DVT. <Balbina Callahan - Last Filed: 09/11/18 16:49> General Exam Limitations: physical limitation <Balbina Callahan - Last Filed: 09/11/18 16:49> - General Exam Comments Initial Comments: General: The patient is awake and alert, in no distress, and does not appear acutely ill. Eye: +3 mm pupils are equal, round and reactive to light, extra-ocular movements are intact. No nystagmus. There is normal conjunctiva bilaterally. No signs of icterus. Ears, nose, mouth and throat: There are moist mucous membranes and no oral lesions. Neck: The neck is supple, there is no tenderness or JVD. Cardiovascular: There is a regular rate and rhythm. No murmur, rub or gallop is appreciated. Respiratory: Lungs are clear to auscultation, respirations are non-labored, breath sounds are equal. No wheezes, stridor, rales, or rhonchi. Gastrointestinal: Soft, non-distended, non-tender abdomen without masses or organomegaly noted. There is no rebound or guarding present. No CVA tenderness. Bowel sounds are unremarkable. Musculoskeletal: Normal ROM, no tenderness. Strength 5/5. Sensation intact. Radial and DP pulses equal bilaterally 2+. No LE edema. (-) Homans, or pain to palpation of the calfs b/l. Neurological: A&O x 3. CN II-XII intact, There are no obvious motor or sensory deficits. Coordination appears grossly intact. Speech is normal. Skin: Skin is warm and dry and no rashes or lesions are noted. Psychiatric: Cooperative, appropriate mood & affect, normal judgment. (Balbina Callahan) Course <Alan Juarez - Last Filed: 09/11/18 17:07> Vital Signs 09/11/18 09/11/18 09/11/18 12:01 13:32 15:11 Temperature 99.9 F H 100.7 F H 101.4 F H Pulse Rate 80 78 82 Respiratory 18 18 18 Rate Blood Pressure 143/72 135/93 162/77 O2 Sat by Pulse 98 97 95 Oximetry 09/11/18 16:35 Temperature 98.9 F Pulse Rate 84 Respiratory 18 Rate Blood Pressure 141/73 O2 Sat by Pulse 97 Oximetry - Reevaluation(s) Reevaluation #1: 09/11/18 16:46 Throws concern for sepsis diagnosed at 1646. 09/11/18 17:06 Case was discussed with Dr. xie, who will admit. (Alan Juarez) Medical Decision Making - Lab Data Result diagrams: 09/11/18 12:25 09/11/18 12:25 <Balbina Callahan - Last Filed: 09/11/18 16:49> - Lab Data Result diagrams: 09/11/18 12:25 09/11/18 12:25 <Alan Juarez - Last Filed: 09/11/18 17:07> - Medical Decision Making Patient reevaluated by myself, Dr. Juarez. Patient states she is having lower abdominal discomfort over the past couple of days. CT report and labs reviewed. Case was discussed with practitioner Sindy. Case was also discussed in detail with Dr. Alvarez, covering for Dr. Dumont. He does recommend medical admission and surgical consult. He will consult. Also recommends cefepime and vancomycin as well as Neupogen. He is having concern for neutropenic colitis and recommends ordering computed tomography scan with oral contrast. has been paged w ith some medical group covering for Dr. Lemus. (Alan Juarez) - Lab Data Lab Results 09/11/18 09/11/18 09/11/18 Range/Units 12:25 12:25 13:00 WBC 1.0 L* (3.8-10.6) k/uL RBC 3.17 L (3.80-5.40) m/uL Hgb 11.0 L (11.4-16.0) gm/dL Hct 32.2 L (34.0-46.0) % MCV 101.5 H (80.0-100.0) fL MCH 34.6 (25.0-35.0) pg MCHC 34.1 (31.0-37.0) g/dL RDW 15.0 (11.5-15.5) % Plt Count 60 L (150-450) k/uL Neutrophils % (Manual) 65 % Lymphocytes % (Manual) 11 % Monocytes % (Manual) 17 % Eosinophils % (Manual) 7 % Neutrophils # (Manual) 0.65 L (1.3-7.7) k/uL Lymphocytes # (Manual) 0.11 L (1.0-4.8) k/uL Monocytes # (Manual) 0.17 (0-1.0) k/uL Eosinophils # (Manual) 0.07 (0-0.7) k/uL Nucleated RBCs 0 (0-0) /100 WBC Manual Slide Review Performed Poikilocytosis (manual Present Macrocytosis Slight Sodium 139 (137-145) mmol/L Potassium 3.3 L (3.5-5.1) mmol/L Chloride 107 (98-107) mmol/L Carbon Dioxide 27 (22-30) mmol/L Anion Gap 5 mmol/L BUN 9 (7-17) mg/dL Creatinine 0.54 (0.52-1.04) mg/dL Est GFR (CKD-EPI)AfAm >90 (>60 ml/min/1.73 sqM) Est GFR (CKD-EPI)NonAf >90 (>60 ml/min/1.73 sqM) Glucose 100 H (74-99) mg/dL Plasma Lactic Acid Shaka (0.7-2.0) mmol/L Calcium 8.2 L (8.4-10.2) mg/dL Total Bilirubin 3.2 H (0.2-1.3) mg/dL AST 153 H (14-36) U/L ALT 89 H (9-52) U/L Alkaline Phosphatase 224 H (38-126) U/L Total Protein 5.0 L (6.3-8.2) g/dL Albumin 2.8 L (3.5-5.0) g/dL Urine Color Yellow Urine Appearance Clear (Clear) Urine pH 6.5 (5.0-8.0) Ur Specific [place] 1.012 (1.001-1.035) Urine Protein Negative (Negative) Urine Glucose (UA) Negative (Negative) Urine Ketones Negative (Negative) Urine Blood Negative (Negative) Urine Nitrite Negative (Negative) Urine Bilirubin 1+ H (Negative) Urine Urobilinogen 4.0 (<2.0) mg/dL Ur Leukocyte Esterase Small H (Negative) Urine RBC 1 (0-5) /hpf Urine WBC 15 H (0-5) /hpf Ur Squamous Epith Cells 1 (0-4) /hpf Urine Bacteria Many H (None) /hpf Urine Mucus Rare H (None) /hpf 09/11/18 Range/Units 13:14 WBC (3.8-10.6) k/uL RBC (3.80-5.40) m/uL Hgb (11.4-16.0) gm/dL Hct (34.0-46.0) % MCV (80.0-100.0) fL MCH (25.0-35.0) pg MCHC (31.0-37.0) g/dL RDW (11.5-15.5) % Plt Count (150-450) k/uL Neutrophils % (Manual) % Lymphocytes % (Manual) % Monocytes % (Manual) % Eosinophils % (Manual) % Neutrophils # (Manual) (1.3-7.7) k/uL Lymphocytes # (Manual) (1.0-4.8) k/uL Monocytes # (Manual) (0-1.0) k/uL Eosinophils # (Manual) (0-0.7) k/uL Nucleated RBCs (0-0) /100 WBC Manual Slide Review Poikilocytosis (manual Macrocytosis Sodium (137-145) mmol/L Potassium (3.5-5.1) mmol/L Chloride (98-107) mmol/L Carbon Dioxide (22-30) mmol/L Anion Gap mmol/L BUN (7-17) mg/dL Creatinine (0.52-1.04) mg/dL Est GFR (CKD-EPI)AfAm (>60 ml/min/1.73 sqM) Est GFR (CKD-EPI)NonAf (>60 ml/min/1.73 sqM) Glucose (74-99) mg/dL Plasma Lactic Acid [place]aka 1.1 (0.7-2.0) mmol/L Calcium (8.4-10.2) mg/dL Total Bilirubin (0.2-1.3) mg/dL AST (14-36) U/L ALT (9-52) U/L Alkaline Phosphatase (38-126) U/L Total Protein (6.3-8.2) g/dL Albumin (3.5-5.0) g/dL Urine Color Urine Appearance (Clear) Urine pH (5.0-8.0) Ur Specific [place] (1.001-1.035) Urine Protein (Negative) Urine Glucose (UA) (Negative) Urine Ketones (Negative) Urine Blood (Negative) Urine Nitrite (Negative) Urine Bilirubin (Negative) Urine Urobilinogen (<2.0) mg/dL Ur Leukocyte Esterase (Negative) Urine RBC (0-5) /hpf Urine WBC (0-5) /hpf Ur Squamous Epith Cells (0-4) /hpf Urine Bacteria (None) /hpf Urine Mucus (None) /hpf Disposition Is patient prescribed a controlled substance at d/c from ED?: No Time of Disposition: 16:50 Decision to Admit Reason: Admit from EC Decision Date: 09/11/18 Decision Time: 16:50 <Balbina Callahan - Last Filed: 09/11/18 16:49> <Alan Juarez - Last Filed: 09/11/18 17:07> Clinical Impression: UTI (urinary tract infection), Fever, Leukopenia, Abdominal pain Disposition: ADMITTED IP TO THIS [facility] Condition: Stable
[2018-09-11 13:18] LABS: Appearance,Urine Clear (Clear); Bacteria,Urine Many /hpf; Bilirubin,Urine 1+ (Negative); Blood,Urine Negative (Negative); Color,Urine Yellow; Glucose,Urine (UA) Negative (Negative); Ketones,Urine Negative (Negative); Leukocyte Esterase,Urine Small (Negative); Mucus,Urine Rare /hpf; Nitrite,Urine Negative (Negative); PH, Urine 6.5 (5.0-8.0); Protein,Urine Negative (Negative); RBC,Urine 1 /hpf (0-5); Specific Gravity,Urine 1.012 (1.001-1.035); Squamous Epithelial Cell,Urine 1 /hpf (0-4); WBC,Urine 15 /hpf (0-5)
[2018-09-11 13:21] LABS: HCT 32.2 % (34.0-46.0); MCH 34.6 pg (25.0-35.0); MCHC 34.1 g/dL (31.0-37.0); MCV 101.5 fL (80.0-100.0); Macrocytosis Slight; Mean Platelet Volume 8.3; RBC 3.17 m/uL (3.80-5.40)
[2018-09-11 13:28] LABS: Platelet Count 60 k/uL (150-450)
[2018-09-11 13:31] LABS: ALT 89 U/L (9-52); AST 153 U/L (14-36); Albumin 2.8 g/dL (3.5-5.0); Alkaline Phosphatase 224 U/L (38-126); Anion Gap 5 mmol/L; Blood Urea Nitrogen 9 mg/dL (7-17); Calcium 8.2 mg/dL (8.4-10.2); Carbon Dioxide 27 mmol/L (22-30); Chloride 107 mmol/L (98-107); Glucose 100 mg/dL (74-99); Potassium 3.3 mmol/L (3.5-5.1); Sodium 139 mmol/L (137-145); Total Bilirubin 3.2 mg/dL (0.2-1.3)
[2018-09-11 14:01] LABS: Eosinophils # (M) 0.07 k/uL (0-0.7); Lymphocytes # (M) 0.11 k/uL (1.0-4.8); Monocytes # (M) 0.17 k/uL (0-1.0); Neutrophils # (M) 0.65 k/uL (1.3-7.7); Neutrophils % (M) 65 %; Nucleated Red Blood Cells 0 /100 WBC (0-0); Total Cells Counted 100
[2018-09-11 14:02] LABS: Poikilocytosis (M) Present
[2018-09-11] MEDS ORDERED: SODIUM CHLORIDE 0.9% 1,000 ML IV ONE (14:14)
[2018-09-11] MEDS ORDERED: MORPHINE SULFATE 4 MG/ML SYRINGE IVP STA (14:43)
[2018-09-11] MEDS ORDERED: ACETAMINOPHEN TAB 500 MG TAB PO STA (14:43)
--- NOTE | 2018-09-11 14:55 | CT ---
EXAMINATION TYPE: CT abdomen pelvis w con DATE OF EXAM: 09/11/2018 HISTORY: Pelvic pain with weakness. CT DLP: 1092.6mGycm Automated Exposure Control for Dose Reduction was Utilized. CONTRAST: CT scan of the abdomen and pelvis is performed with IV Contrast, patient injected with 100 mL of Isov ue 300. COMPARISON: CT abdomen and pelvis July 10, 2018 and older studies. FINDINGS: LUNG BASES: There is minimal central linear scarring in both bases redemonstrated.. LIVER/GB: Gallbladder is not visualized and presumed surgically absent. Mild to moderate central intr ahepatic and extra hepatic biliary dilatation is redemonstrated measuring up to 16 mm near robert hepa tis coronal image 52. No significant change from prior. PANCREAS: No pancreatic ductal dilatation is noted. SPLEEN: Splenomegaly is redemonstrated measuring 15.2 cm long axis axial image 25. ADRENALS: No significant abnormality is seen. KIDNEYS: Simple appearing 3.5 cm cyst posteriorly upper pole of the left kidney is redemonstrated.. BOWEL: Evaluation of bowel is slightly suboptimal secondary to lack of enteric contrast. There is no suspicious small or large bowel dilatation. UTERUS/ADNEXA: Uterus is surgically absent or markedly atrophic. LYMPH NODES: No greater than 1cm abdominal or pelvic lymph nodes are appreciated. OSSEOUS STRUCTURES: Multilevel spurring in the thoracolumbar spine is present. There is facet arthrop athy mid and mid to lower lumbar spine. Mild height loss superior L5 vertebra is stable. OTHER: Metallic stent graft left common iliac artery extending into the external iliac artery is red emonstrated. Partially calcified poorly defined midabdominal mesenteric mass just below pancreas axial image 39 wi th indistinct fat plane from adjacent vessels and bowel is not significantly changed from most recent CT improved from older studies. IMPRESSION: No significant new or acute finding is seen to account for patient's clinical symptoms. T reated midabdominal neoplasm or lymphoma redemonstrated. Other findings as noted above not significan tly changed from most recent CT.
--- NOTE | 2018-09-11 15:08 | XR ---
EXAMINATION TYPE: XR chest 2V DATE OF EXAM: 09/11/2018 COMPARISON: 07/10/2018 HISTORY: Shortness of breath TECHNIQUE: Frontal and lateral views of the chest are obtained. FINDINGS: Scattered senescent parenchymal changes noted. Hyperinflation compatible with COPD. No evidence for infiltrate. No evidence for atelectasis. Heart size is stable. Mediastinal structures are stable and grossly unremarkable. No evidence for hilar prominence. Degenerative changes dorsal spine. IMPRESSION: 1. No evidence for acute pulmonary disease.
[2018-09-11] MEDS ORDERED: CEFEPIME 2 GM in SODIUM CHLORIDE 0.9% 100 ML IVPB STA (16:44)
[2018-09-11] MEDS ORDERED: IOPAMIDOL-300 CONTRAST 30 ML VIAL (ORAL USE) PO PRN (16:45)
[2018-09-11] MEDS ORDERED: NALOXONE 0.4 MG/ML 1 ML VIAL IV PRN (16:47)
[2018-09-11] MEDS ORDERED: VANCOMYCIN IV PER PHARMACY 1 EACH MISC MISCELLANE PRN ×2 (16:49→18:51)
[2018-09-11] MEDS ORDERED: VANCOMYCIN 2,000 MG in SODIUM CHLORIDE 0.9% 500 ML 500 ML IVPB STA (16:53)
[2018-09-11] MEDS: SODIUM CHLORIDE 0.9% 1,000 ML IV SCH (17:29)
[2018-09-11] MEDS ORDERED: ONDANSETRON 4 MG/2 ML VIAL IVP SCH (17:30)
[2018-09-11] MEDS: ONDANSETRON 4 MG/2 ML VIAL IVP PRN (17:34)
[2018-09-11 18:00] LABS: Glucose,Whole Blood 76 mg/dL (75-99)
[2018-09-11 18:18] VITALS: BMI 42.7
[2018-09-11] MEDS: MORPHINE SULFATE 2 MG/ML SYRINGE IVP PRN (18:38)
[2018-09-11] MEDS: HYDROcodone/APAP 10-325MG 1 EACH TAB PO PRN (18:39)
[2018-09-11] MEDS: POTASSIUM CHLORIDE ER 20 MEQ TAB.ER PO STA ×2 (19:03→21:49)
[2018-09-11] MEDS: FILGRASTIM-SNDZ 480 MCG/0.8 ML SYRINGE SQ SCH (19:03)
[2018-09-11] MEDS ORDERED: valACYclovir HCL 1,000 MG TABLET PO PRN (19:03)
--- NOTE | 2018-09-11 19:06 | P.HPIM ---
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 The patient's last dose of chemotherapy was 6 weeks prior. The patient was noted to have severe neutropenia on blood work performed by her PCP. As per the patient, she was prescribed antibiotics for UTI 2 days prior. The patient reports fevers, chills, abdominal pain, and severe diarrhea at home. At time of the interview, the patient reports that her pain is an 8 out of 10, and a bandlike distribution from the lower abdominal region to the right flank and then radiating to the back on the right side. She notes that the pain is chronic though recently worsened a few days ago. She also endorsed persistent diarrhea, which recently worsened 2 days ago, with 12 bowel movements yesterday. She otherwise is denying dysuria, chest pain, shortness of breath, or headaches. The patient underwent an extensive evaluation in the ED and was noted to have a WBC count of 1.0, platelets 60, potassium 3.3, creatinine 0.54, AST 153, ALT 89, alk phos 224, UA showing 15 WBCs, and small leukocyte esterase. An abdominal pelvis computed tomography scan with contrast revealed no acute findings, and a chest x-ray was unremarkable. The case was discussed with oncology by the ED physician, who was advised to start the patient on broad-spectrum antibiotics and obtain a repeat CT with slow oral contrast due to concerns for colitis. The patient was actually admitted to the medicine service. Review of Systems Pertinent positives and negatives as discussed in HPI, a complete review of systems was performed and all other systems are negative. 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 History of Any Multi-Drug Resistant Organisms: None Reported Date of last positivie culture/infection: 05/12/17 MDRO Source:: ESBL URINE Past Surgical History: Adenoidectomy, Appendectomy, Back Surgery, Cholecystectomy, Hysterectomy, Orthopedic Surgery, Tonsillectomy Additional Past Surgical History / Comment(s): Recent abdominal mass biopsy x 2, BMA, EGD/colonoscopy at [facility], bilateral carpal tunnel release, thyroidectomy (one tiny piece unable to remove), ORIF rt ankle, stents in LLE/vascular stent, cervical surgery C4,C6, thyroidectomy Past Anesthesia/Blood Transfusion Reactions: Postoperative Nausea & Vomiting (PONV) Additional Past Anesthesia/Blood Transfusion Reaction / Comment(s): blood transfusion(December 2015) "pt stated an hour after transfusion became very nauseated and had quit a bit of vomiting" Past Psychological History: No Psychological Hx Reported Additional Psychological History / Comment(s): lives with family home with her . Is living in [place]. That is where they adopted the 2 youngest foster children who are now 16. Lifelong nonsmoker. No cigarette or alcohol use. no recent travels. No pets in the home. No experience Smoking Status: Never smoker Past Alcohol Use History: None Reported Past Drug Use History: None Reported - Past Family History Mother Family Medical History: Diabetes Mellitus, Renal Disease Additional Family Medical History / Comment(s): Mother of kidney failure at the age of 69yrs. Father Family Medical History: Diabetes Mellitus Additional Family Medical History / Comment(s): Father of a "sugar coma" when he was 72 yrs old. Brother(s) Family Medical History: Cancer Sister(s) Family Medical History: Myocardial Infarction ([place]) Additional Family Medical History / Comment(s): Patient has 3 sisters and 2 of them are diabetic. Son(s) Family Medical History: No Reported History (Patient has 4 sons no major medical problems) Additional Family Medical History / Comment(s): Patient has 4 sons with no major medical problems. Daughter(s) Family Medical History: Deep Vein Thrombosis (DVT) Additional Family Medical History / Comment(s): Patient has a daughter with DVT. Medications and Allergies Home Medications Medication Instructions Recorded Confirmed Type Sertraline [Zoloft] 200 mg PO HS 03/07/15 09/11/18 History Atorvastatin [Lipitor] 40 mg PO HS 02/10/16 09/11/18 History Levothyroxine Sodium [Synthroid] 137 mcg PO DAILY 08/17/16 09/11/18 History Glimepiride [Amaryl] 2 mg PO BID 12/19/16 09/11/18 History Tolterodine ER [Detrol LA] 4 mg PO DAILY 03/30/17 09/11/18 History Acyclovir 400 mg PO BID 06/07/18 09/11/18 History Gabapentin [Neurontin] 300 mg PO HS 06/07/18 09/11/18 History HYDROcodone/APAP 10-325MG [[place] 1 tab PO Q6H PRN 06/07/18 09/11/18 History 10-325] Lisinopril [Zestril] 20 mg PO DAILY 06/07/18 09/11/18 History Omeprazole [PriLOSEC] 20 mg PO AC-BID 06/07/18 09/11/18 History Prochlorperazine [Compazine] 10 mg PO Q6H PRN 06/07/18 09/11/18 History Acetaminophen/Diphenhydramine 1 tab PO HS PRN 09/11/18 09/11/18 History [Tylenol PM 500-25mg] Cholestyramine (with Sugar) 4 gm PO HS 09/11/18 09/11/18 History [Cholestyramine Powder] Cranberry Fruit Extract [Cranberry] 200 mg PO DAILY PRN 09/11/18 09/11/18 History Diphenox-Atrop 2.5-0.025 mg 2 tab PO QID PRN 09/11/18 09/11/18 History [Lomotil] Loratadine [Claritin] 10 mg PO DAILY 09/11/18 09/11/18 History Ondansetron [Zofran] 4 mg PO Q6H PRN 09/11/18 09/11/18 History Rivaroxaban [Xarelto] 20 mg PO DAILY 09/11/18 09/11/18 History valACYclovir HCL [Valtrex] 1,000 mg PO DAILY PRN 09/11/18 09/11/18 History Allergies Allergy/AdvReac Type Severity Reaction Status Date / Time Anesthetics - Amide Type AdvReac Nausea & Verified 09/11/18 13:11 Vomiting & Diarrhea Anesthetics - Jonna Type- AdvReac Nausea & Verified 09/11/18 13:11 Parabens Vomiting & Diarrhea oxycodone [From OxyContin] AdvReac Nausea & Verified 09/11/18 13:11 Vomiting Physical Exam Vitals: Vital Signs Temp Pulse Pulse Resp BP BP Pulse Ox 09/11/18 18:03 98.4 F 83 17 142/67 97 09/11/18 16:35 98.9 F 84 18 141/73 97 09/11/18 15:11 101.4 F H 82 18 162/77 95 09/11/18 13:32 100.7 F H 78 18 135/93 97 09/11/18 12:01 99.9 F H 80 18 143/72 98 Intake and Output 09/11/18 09/11/18 09/11/18 06:59 14:59 22:59 Other: Weight 116.619 kg General: non toxic, in moderate distress from pain, appears at stated age, obese Derm: no unusual rashes/lesions no unusual ecchymoses, warm, dry Head: atraumatic, normocephalic, symmetric Eyes: EOMI, no lid lag, anicteric sclera, pupils equal round reactive to light ENT: Nose and ears atraumatic, no thrush, no pharyngeal erythema Neck: No thyromegaly, no cervical lymphadenopathy, trachea midline, supple Mouth: no lip lesion, mucus membranes moist Cardiovascular: S1S2 reg, no murmur, positive posterior tibial pulse bilateral, no edema, capillary refill less than 2 seconds Lungs: CTA bilateral, no rhonchi, no rales , no accessory muscle use Abdominal: soft, lower abdominal and right-sided tenderness palpation, no guarding, no appreciable organomegaly, normal bowel sounds Ext: no gross muscle atrophy, muscle strength 5 out of 5 in all 4 extremities grossly, no contractures, Neuro: CN II-XI grossly intact, light touch intact all 4 extremities, finger to nose within normal limits, Psych: Alert, oriented, appropriate affect Results CBC & Chem 7: 09/11/18 12:25 09/11/18 12:25 Labs: Abnormal Lab Results - Last 24 Hours (Table) 09/11/18 09/11/18 09/11/18 Range/Units 12:25 12:25 13:00 WBC 1.0 L* (3.8-10.6) k/uL RBC 3.17 L (3.80-5.40) m/uL Hgb 11.0 L (11.4-16.0) gm/dL Hct 32.2 L (34.0-46.0) % MCV 101.5 H (80.0-100.0) fL Plt Count 60 L (150-450) k/uL Neutrophils # (Manual) 0.65 L (1.3-7.7) k/uL Lymphocytes # (Manual) 0.11 L (1.0-4.8) k/uL Potassium 3.3 L (3.5-5.1) mmol/L Glucose 100 H (74-99) mg/dL Calcium 8.2 L (8.4-10.2) mg/dL Total Bilirubin 3.2 H (0.2-1.3) mg/dL AST 153 H (14-36) U/L ALT 89 H (9-52) U/L Alkaline Phosphatase 224 H (38-126) U/L Total Protein 5.0 L (6.3-8.2) g/dL Albumin 2.8 L (3.5-5.0) g/dL Urine Bilirubin 1+ H (Negative) Ur Leukocyte Esterase Small H (Negative) Urine WBC 15 H (0-5) /hpf Urine Bacteria Many H (None) /hpf Urine Mucus Rare H (None) /hpf Microbiology - Last 24 Hours (Table) 09/11/18 13:00 Urine Culture - Preliminary Urine,Voided Thrombosis Risk Factor Assmnt - Choose All That Apply Any of the Below Risk Factors Present?: Yes Each Factor Represents 1 point: Age 41-60 years, Obesity (BMI >25) Other Risk Factors: Yes Each Risk Factor Represents 2 Points: Central venous access, Malignancy Other congenital or acquired thrombophilia - If yes, enter type in comment: No Thrombosis Risk Factor Assessment Total Risk Factor Score: 6 Thrombosis Risk Factor Assessment Level: High Risk Assessment and Plan Plan: Neutropenic fever, suspected colitis versus UTI -Continue with broad-spectrum IV antibiotics including vancomycin and cefepime -Neutropenic precautions -Continue with IV fluids 100 mL an hour -Oncology and ID consulted -Continue with pain control with [place] and morphine when necessary -Nothing by mouth for now -Follow-up CT abdomen and pelvis with oral contrast -Check C. diff neck -Follow-up blood and urine cultures Abnormal LFTs -Likely secondary to colitis -Monitor for now Thrombocytopenia, chronic -Hematology consulted -Monitor CBC Factor V Leiden -Continue with home medication: Xarelto Hypokalemia -Replace and monitor DVT//GI prophylaxis -Xarelto -IPCDs The patient is admitted with an anticipated greater than 2 midnight stay for evaluation of neutropenic fever. CODE STATUS: No Code Discussed with: Patient Anticipated discharge date: 09/14/[address]: Home A total of 45 minutes was spent on the care of this complex patient more than 50% of the time was spent in counseling and care coordination.
[2018-09-11 20:20] LABS: Glucose,Whole Blood 61 mg/dL (75-99)
[2018-09-11 20:39] LABS: Glucose,Whole Blood 68 mg/dL (75-99)
[2018-09-11 20:59] LABS: Glucose,Whole Blood 77 mg/dL (75-99)
[2018-09-11] MEDS: GABAPENTIN 300 MG CAP PO SCH (21:49)
[2018-09-11] MEDS: ATORVASTATIN 40 MG TAB PO SCH (21:49)
--- NOTE | 2018-09-11 22:17 | CT ---
EXAMINATION TYPE: CT abdomen pelvis wo con DATE OF EXAM: 09/11/2018 COMPARISON: CT 09/11/2018 at 2:28 PM HISTORY: abdominal pain CT DLP: 2053.2 mGycm Automated exposure control for dose reduction was used. TECHNIQUE: Helical acquisition of images was performed from the lung bases through the pelvis. FINDINGS: VISUALIZED SUPRADIAPHRAGMATIC STRUCTURES: No acute process. ABDOMEN PELVIS: There is no bowel obstruction. The oral contrast opacifies the stomach, small bowel a nd large bowel. There is no urinary tract obstruction. Variant pancreatic ductal anatomy unremarkable. There is no abnormal fluid or gas collection. There is no acute inflammatory process. Anterior abdominal wall is intact. The known partially-calcified poorly-defined midabdominal mesenteric mass just below the pancreas is seen again, with indistinct fat planes from adjacent vessels and bowel. IMPRESSION: NO ACUTE PROCESS.
[2018-09-11] MEDS: INSULIN ASPART (NovoLOG) 100 UNIT/ML VIAL SQ SCH (22:18)
[2018-09-11] MEDS: SERTRALINE 100 MG TAB PO SCH (23:14)
[2018-09-11] MEDS: CEFEPIME 2 GM in SODIUM CHLORIDE 0.9% 100 ML IVPB SCH (23:16)
[2018-09-12] MEDS: HYDROcodone/APAP 10-325MG 1 EACH TAB PO PRN ×4 (01:26→23:28)
[2018-09-12] MEDS: MORPHINE SULFATE 2 MG/ML SYRINGE IVP PRN ×2 (01:55→09:45)
[2018-09-12] MEDS ORDERED: metroNIDAZOLE-NS PMX 500 MG in SALINE 1 100ML.BAG IVPB SCH (02:00)
[2018-09-12] MEDS: SODIUM CHLORIDE 0.9% 1,000 ML IV SCH ×3 (03:13→23:25)
[2018-09-12] MEDS: LEVOTHYROXINE 137 MCG TAB PO SCH (05:40)
[2018-09-12] MEDS ORDERED: VANCOMYCIN 2,000 MG in SODIUM CHLORIDE 0.9% 500 ML 500 ML IVPB SCH (06:00)
[2018-09-12 06:52] LABS: Glucose,Whole Blood 77 mg/dL (75-99)
[2018-09-12] MEDS: INSULIN ASPART (NovoLOG) 100 UNIT/ML VIAL SQ SCH ×4 (07:18→20:46)
[2018-09-12] MEDS ORDERED: metroNIDAZOLE-NS PMX 100 ML IVPB SCH (08:00)
[2018-09-12] MEDS: RIVAROXABAN 20 MG TAB PO SCH (08:28)
[2018-09-12 08:44] LABS: ALT 79 U/L (9-52); AST 97 U/L (14-36); Albumin 2.4 g/dL (3.5-5.0); Alkaline Phosphatase 205 U/L (38-126); Anion Gap 3 mmol/L; Blood Urea Nitrogen 8 mg/dL (7-17); Calcium 7.8 mg/dL (8.4-10.2); Carbon Dioxide 26 mmol/L (22-30); Chloride 110 mmol/L (98-107); Glucose 61 mg/dL (74-99); Sodium 139 mmol/L (137-145); Total Bilirubin 3.8 mg/dL (0.2-1.3); Total Protein 4.4 g/dL (6.3-8.2)
[2018-09-12 08:49] LABS: HCT 29.4 % (34.0-46.0); HGB 9.9 gm/dL (11.4-16.0); MCH 34.7 pg (25.0-35.0); MCHC 33.5 g/dL (31.0-37.0); MCV 103.7 fL (80.0-100.0); Macrocytosis Slight; Mean Platelet Volume 8.3; RBC 2.84 m/uL (3.80-5.40); RDW 14.4 % (11.5-15.5)
[2018-09-12 08:55] LABS: WBC 1.3 k/uL (3.8-10.6)
[2018-09-12 08:57] LABS: Platelet Count 45 k/uL (150-450)
[2018-09-12] MEDS ORDERED: POTASSIUM CHLORIDE 10 MEQ in WATER FOR INJECTION 1 100ML.BAG IVPB STA (09:16)
--- NOTE | 2018-09-12 09:19 | P.PN ---
Subjective Progress Note Date: 09/12/18 Patient is a 57-year-old female with a PMH of factor V Leiden, and intra- abdominal follicular lymphoma with metastasis and multiple admissions for febrile neutropenia who presented to the ED for concerns of neutropenic fever. The patient also had endorsed abdominal pain and diarrhea, gradually worsening at home over the past few days. The patient underwent an extensive evaluation in the ED with WBC count 1.0, platelets 60, AST 153, ALT 89, alk phos 224, with an unremarkable abdominal pelvis CT. The patient was subsequently admitted to the medicine service for further management of neutropenic fever with suspected colitis. The patient was initially started on vancomycin and cefepime therapy. C. diff screen was positive and the patient was placed on contact precautions and also started on metronidazole. Infectious disease and oncology were consulted. The patient was seen and examined at the bedside on 09/12/2018. She reports that her abdominal pain has improved since admission, currently a 6 out of 10. She however continues to have diarrhea with multiple bowel movements overnight. She remains nothing by mouth for now. She denied chills, vomiting, dysuria, headaches, chest pain, shortness of breath. Objective - Vital Signs Vital signs: Vital Signs Temp 100.3 F H 09/12/18 05:00 Pulse 87 09/12/18 05:00 Resp 16 09/12/18 05:00 BP 143/87 09/12/18 05:00 Pulse Ox 95 09/12/18 05:00 Intake & Output 09/11/18 09/12/18 09/12/18 18:59 06:59 18:59 Weight 116.619 kg Other: # Voids 3 # Bowel Movements 1 - Exam General: Non-toxic, in mild distress due to pain, appears stated age, obese HEENT: NC/AT, anicteric sclerae, moist conjunctiva, no lid-lag, PERRLA Cardiovascular: S1/S2 wnl, no murmurs, rubs, or gallops Lungs: Clear to auscultation, normal respiratory effort, no accessory muscle use Abdominal: Soft, diffuse lower abdominal tenderness to palpation, non-distended, no guarding, rebound, or rigidity Skin: Warm, dry Extremities: No edema or contractures Psychiatric: Alert and oriented to person, place and time, appropriate affect Neuro: CN II-XII grossly intact, Strength 5/5 in all 4 extremities, Speech intact, Sensation to light touch grossly intact throughout - Labs CBC & Chem 7: 09/12/18 07:54 09/12/18 07:54 Labs: Abnormal Lab Results - Last 24 Hours (Table) 09/11/18 09/11/18 09/11/18 Range/Units 12:25 12:25 13:00 WBC 1.0 L* (3.8-10.6) k/uL RBC 3.17 L (3.80-5.40) m/uL Hgb 11.0 L (11.4-16.0) gm/dL Hct 32.2 L (34.0-46.0) % MCV 101.5 H (80.0-100.0) fL Plt Count 60 L (150-450) k/uL Neutrophils # (Manual) 0.65 L (1.3-7.7) k/uL Lymphocytes # (Manual) 0.11 L (1.0-4.8) k/uL Potassium 3.3 L (3.5-5.1) mmol/L Chloride (98-107) mmol/L Creatinine (0.52-1.04) mg/dL Glucose 100 H (74-99) mg/dL POC Glucose (mg/dL) (75-99) mg/dL Calcium 8.2 L (8.4-10.2) mg/dL Total Bilirubin 3.2 H (0.2-1.3) mg/dL AST 153 H (14-36) U/L ALT 89 H (9-52) U/L Alkaline Phosphatase 224 H (38-126) U/L Total Protein 5.0 L (6.3-8.2) g/dL Albumin 2.8 L (3.5-5.0) g/dL Urine Bilirubin 1+ H (Negative) Ur Leukocyte Esterase Small H (Negative) Urine WBC 15 H (0-5) /hpf Urine Bacteria Many H (None) /hpf Urine Mucus Rare H (None) /hpf C. difficile (EIA) Intrp (Negative) 09/11/18 09/11/18 09/11/18 Range/Units 20:18 20:38 23:50 WBC (3.8-10.6) k/uL RBC (3.80-5.40) m/uL Hgb (11.4-16.0) gm/dL Hct (34.0-46.0) % MCV (80.0-100.0) fL Plt Count (150-450) k/uL Neutrophils # (Manual) (1.3-7.7) k/uL Lymphocytes # (Manual) (1.0-4.8) k/uL Potassium (3.5-5.1) mmol/L Chloride (98-107) mmol/L Creatinine (0.52-1.04) mg/dL Glucose (74-99) mg/dL POC Glucose (mg/dL) 61 L 68 L (75-99) mg/dL Calcium (8.4-10.2) mg/dL Total Bilirubin (0.2-1.3) mg/dL AST (14-36) U/L ALT (9-52) U/L Alkaline Phosphatase (38-126) U/L Total Protein (6.3-8.2) g/dL Albumin (3.5-5.0) g/dL Urine Bilirubin (Negative) Ur Leukocyte Esterase (Negative) Urine WBC (0-5) /hpf Urine Bacteria (None) /hpf Urine Mucus (None) /hpf C. difficile (EIA) Intrp Positive A (Negative) 09/12/18 09/12/18 Range/Units 07:54 07:54 WBC 1.3 L* (3.8-10.6) k/uL RBC 2.84 L (3.80-5.40) m/uL Hgb 9.9 L (11.4-16.0) gm/dL Hct 29.4 L (34.0-46.0) % MCV 103.7 H (80.0-100.0) fL Plt Count 45 L (150-450) k/uL Neutrophils # (Manual) (1.3-7.7) k/uL Lymphocytes # (Manual) (1.0-4.8) k/uL Potassium 3.0 L (3.5-5.1) mmol/L Chloride 110 H (98-107) mmol/L Creatinine 0.51 L (0.52-1.04) mg/dL Glucose 61 L (74-99) mg/dL POC Glucose (mg/dL) (75-99) mg/dL Calcium 7.8 L (8.4-10.2) mg/dL Total Bilirubin 3.8 H (0.2-1.3) mg/dL AST 97 H (14-36) U/L ALT 79 H (9-52) U/L Alkaline Phosphatase 205 H (38-126) U/L Total Protein 4.4 L (6.3-8.2) g/dL Albumin 2.4 L (3.5-5.0) g/dL Urine Bilirubin (Negative) Ur Leukocyte Esterase (Negative) Urine WBC (0-5) /hpf Urine Bacteria (None) /hpf Urine Mucus (None) /hpf C. difficile (EIA) Intrp (Negative) Microbiology - Last 24 Hours (Table) 09/11/18 13:00 Urine Culture - Preliminary Urine,Voided Assessment and Plan Plan: Neutropenic fever, C diff colitis -Continue with vancomycin, cefepime, recently started metronidazole -Neutropenic precautions -Continue with IV fluids 100 mL an hour -Oncology and ID consulted, recommendations pending -Continue with pain control with [place] and morphine when necessary -Nothing by mouth for now -Follow-up blood and urine cultures Thrombocytopenia, chronic -Hematology consulted -Monitor CBC Abnormal LFTs, improved -Likely secondary to colitis -Monitor for now Factor V Leiden -Continue with home medication: Xarelto Hypokalemia -Replace and monitor DVT//GI prophylaxis -Xarelto -IPCDs Discussed with: Patient Anticipated discharge date: September 15, [address]: Home A total of 35 minutes was spent on the care of this complex patient more than 50% of the time was spent in counseling and care coordination.
[2018-09-12] MEDS: CEFEPIME 2 GM in SODIUM CHLORIDE 0.9% 100 ML IVPB SCH (09:33)
[2018-09-12] MEDS: FILGRASTIM-SNDZ 480 MCG/0.8 ML SYRINGE SQ SCH (09:33)
[2018-09-12] MEDS: POTASSIUM CHLORIDE ER 20 MEQ TAB.ER PO SCH ×2 (09:52→13:36)
[2018-09-12 12:11] LABS: Glucose,Whole Blood 90 mg/dL (75-99)
[2018-09-12] MEDS: VANCOMYCIN ORAL SOLUTION 250 MG/5 ML BOTTLE PO SCH ×3 (13:32→23:23)
--- NOTE | 2018-09-12 13:32 | P.CONS ---
History of Present Illness - Reason for Consult Consult date: 09/12/18 Leukopenic fever Requesting physician: Mohinder Abraham - Chief Complaint Abdominal pain and diarrhea x few days - History of Present Illness Patient is a 57 year female with a past medical history significant for intra-abdominal follicular lymphoma with metastasis for the patient has been on chemotherapy patient did have a previous admission to this facility with f ebrile neutropenia source was predominately urinary in this patient also have a history of factor V Leiden deficiency. Patient presented to the ER at [facility] yesterday morning with a chief complaints of diarrhea that apparently has been going off and on for a couple of weeks however has been recently worse patient mentions she has been in the bathroom almost 20 times per day is watery with no blood or mucus in it patient has been complaining of crampy left lower abdominal pain also describing it to be 20 out of 10 with no radiation patient has felt nauseated but no vomiting, with these symptom the patient was evaluated by the ER physician on presentation the patient did have a fever 101.4F, she was noticed to be leukopenic with a white count of 1.[address] have a [address] of abdominal pelvis did not show any acute abnormality, patient is being treated her with vancomycin and cefepime the patient did have stool for C. 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 History of Any Multi-Drug Resistant Organisms: None Reported Year Discovered:: 05/12/17 MDRO Source:: ESBL URINE Past Surgical History: Adenoidectomy, Appendectomy, Back Surgery, Cholecystectomy, Hysterectomy, Orthopedic Surgery, Tonsillectomy Additional Past Surgical History / Comment(s): Recent abdominal mass biopsy x 2, BMA, EGD/colonoscopy at [facility], bilateral carpal tunnel release, thyroidectomy (one tiny piece unable to remove), ORIF rt ankle, stents in LLE/vascular stent, cervical surgery C4,C6, thyroidectomy Past Anesthesia/Blood Transfusion Reactions: Postoperative Nausea & Vomiting (PONV) Additional Past Anesthesia/Blood Transfusion Reaction / Comm: blood transfusion(December 2015) "pt stated an hour after transfusion became very nauseated and had quit a bit of vomiting" Past Psychological History: No Psychological Hx Reported Additional Psychological History / Comment(s): lives with family home with her . Is living in [place]. That is where they adopted the 2 youngest foster children who are now 16. Lifelong nonsmoker. No cigarette or alcohol use. no recent travels. No pets in the home. No experience Smoking Status: Never smoker Past Alcohol Use History: None Reported Past Drug Use History: None Reported - Past Family History Mother Family Medical History: Diabetes Mellitus, Renal Disease Additional Family Medical History / Comment(s): Mother of kidney failure at the age of 69yrs. Father Family Medical History: Diabetes Mellitus Additional Family Medical History / Comment(s): Father of a "sugar coma" when he was 72 yrs old. Brother(s) Family Medical History: Cancer Sister(s) Family Medical History: Myocardial Infarction ([place]) Additional Family Medical History / Comment(s): Patient has 3 sisters and 2 of them are diabetic. Son(s) Family Medical History: No Reported History (Patient has 4 sons no major medical problems) Additional Family Medical History / Comment(s): Patient has 4 sons with no major medical problems. Daughter(s) Family Medical History: Deep Vein Thrombosis (DVT) Additional Family Medical History / Comment(s): Patient has a daughter with DVT. Medications and Allergies Home Medications Medication Instructions Recorded Confirmed Type Sertraline [Zoloft] 200 mg PO HS 03/07/15 09/11/18 History Atorvastatin [Lipitor] 40 mg PO HS 02/10/16 09/11/18 History Levothyroxine Sodium [Synthroid] 137 mcg PO DAILY 08/17/16 09/11/18 History Glimepiride [Amaryl] 2 mg PO BID 12/19/16 09/11/18 History Tolterodine ER [Detrol LA] 4 mg PO DAILY 03/30/17 09/11/18 History Acyclovir 400 mg PO BID 06/07/18 09/11/18 History Gabapentin [Neurontin] 300 mg PO HS 06/07/18 09/11/18 History HYDROcodone/APAP 10-325MG [[place] 1 tab PO Q6H PRN 06/07/18 09/11/18 History 10-325] Lisinopril [Zestril] 20 mg PO DAILY 06/07/18 09/11/18 History Omeprazole [PriLOSEC] 20 mg PO AC-BID 06/07/18 09/11/18 History Prochlorperazine [Compazine] 10 mg PO Q6H PRN 06/07/18 09/11/18 History Acetaminophen/Diphenhydramine 1 tab PO HS PRN 09/11/18 09/11/18 History [Tylenol PM 500-25mg] Cholestyramine (with Sugar) 4 gm PO HS 09/11/18 09/11/18 History [Cholestyramine Powder] Cranberry Fruit Extract [Cranberry] 200 mg PO DAILY PRN 09/11/18 09/11/18 History Diphenox-Atrop 2.5-0.025 mg 2 tab PO QID PRN 09/11/18 09/11/18 History [Lomotil] Loratadine [Claritin] 10 mg PO DAILY 09/11/18 09/11/18 History Ondansetron [Zofran] 4 mg PO Q6H PRN 09/11/18 09/11/18 History Rivaroxaban [Xarelto] 20 mg PO DAILY 09/11/18 09/11/18 History valACYclovir HCL [Valtrex] 1,000 mg PO DAILY PRN 09/11/18 09/11/18 History Allergies Allergy/AdvReac Type Severity Reaction Status Date / Time Anesthetics - Amide Type AdvReac Nausea & Verified 09/11/18 13:11 Vomiting & Diarrhea Anesthetics - Jonna Type- AdvReac Nausea & Verified 09/11/18 13:11 Parabens Vomiting & Diarrhea oxycodone [From OxyContin] AdvReac Nausea & Verified 09/11/18 13:11 Vomiting Physical Exam Vitals: Vital Signs Temp Pulse Pulse Resp BP BP Pulse Ox 09/12/18 05:00 100.3 F H 87 16 143/87 95 09/11/18 23:40 74 16 09/11/18 21:30 98.1 F 74 16 138/60 94 L 09/11/18 18:03 98.4 F 83 17 142/67 97 09/11/18 16:35 98.9 F 84 18 141/73 97 09/11/18 15:11 101.4 F H 82 18 162/77 95 09/11/18 13:32 100.7 F H 78 18 135/93 97 09/11/18 12:01 99.9 F H 80 18 143/72 98 Intake and Output 09/11/18 09/12/18 09/12/18 22:59 06:59 14:59 Other: # Voids 3 3 # Bowel Movements 1 1 GENERAL DESCRIPTION: Middle-aged male lying in bed, no distress. No tachypnea or accessory muscle of respiration use. HEENT: Shows Pallor , no scleral icterus. Oral mucous membrane is dry. No pharyngeal erythema or thrush NECK: Trachea central, no thyromegaly. LUNGS: Unlabored breathing. Clear to auscultation anteriorly. No wheeze or crackle. HEART: S1, S2, regular rate and rhythm. No loud murmur ABDOMEN: Soft, no tenderness , guarding or rigidity, no organomegaly EXTREMITIES: No edema of feet. SKIN: No rash, no masses palpable. NEUROLOGICAL: The patient is awake, alert, oriented x3, mood and affect normal. Results CBC & Chem 7: 09/12/18 07:54 09/12/18 07:54 Labs: Abnormal Lab Results - Last 24 Hours (Table) 09/11/18 09/11/18 09/11/18 Range/Units 12:25 12:25 13:00 WBC 1.0 L* (3.8-10.6) k/uL RBC 3.17 L (3.80-5.40) m/uL Hgb 11.0 L (11.4-16.0) gm/dL Hct 32.2 L (34.0-46.0) % MCV 101.5 H (80.0-100.0) fL Plt Count 60 L (150-450) k/uL Neutrophils # (Manual) 0.65 L (1.3-7.7) k/uL Lymphocytes # (Manual) 0.11 L (1.0-4.8) k/uL Potassium 3.3 L (3.5-5.1) mmol/L Chloride (98-107) mmol/L Creatinine (0.52-1.04) mg/dL Glucose 100 H (74-99) mg/dL POC Glucose (mg/dL) (75-99) mg/dL Calcium 8.2 L (8.4-10.2) mg/dL Total Bilirubin 3.2 H (0.2-1.3) mg/dL AST 153 H (14-36) U/L ALT 89 H (9-52) U/L Alkaline Phosphatase 224 H (38-126) U/L Total Protein 5.0 L (6.3-8.2) g/dL Albumin 2.8 L (3.5-5.0) g/dL Urine Bilirubin 1+ H (Negative) Ur Leukocyte Esterase Small H (Negative) Urine WBC 15 H (0-5) /hpf Urine Bacteria Many H (None) /hpf Urine Mucus Rare H (None) /hpf C. difficile (EIA) Intrp (Negative) 09/11/18 09/11/18 09/11/18 Range/Units 20:18 20:38 23:50 WBC (3.8-10.6) k/uL RBC (3.80-5.40) m/uL Hgb (11.4-16.0) gm/dL Hct (34.0-46.0) % MCV (80.0-100.0) fL Plt Count (150-450) k/uL Neutrophils # (Manual) (1.3-7.7) k/uL Lymphocytes # (Manual) (1.0-4.8) k/uL Potassium (3.5-5.1) mmol/L Chloride (98-107) mmol/L Creatinine (0.52-1.04) mg/dL Glucose (74-99) mg/dL POC Glucose (mg/dL) 61 L 68 L (75-99) mg/dL Calcium (8.4-10.2) mg/dL Total Bilirubin (0.2-1.3) mg/dL AST (14-36) U/L ALT (9-52) U/L Alkaline Phosphatase (38-126) U/L Total Protein (6.3-8.2) g/dL Albumin (3.5-5.0) g/dL Urine Bilirubin (Negative) Ur Leukocyte Esterase (Negative) Urine WBC (0-5) /hpf Urine Bacteria (None) /hpf Urine Mucus (None) /hpf C. difficile (EIA) Intrp Positive A (Negative) 09/12/18 09/12/18 Range/Units 07:54 07:54 WBC 1.3 L* (3.8-10.6) k/uL RBC 2.84 L (3.80-5.40) m/uL Hgb 9.9 L (11.4-16.0) gm/dL Hct 29.4 L (34.0-46.0) % MCV 103.7 H (80.0-100.0) fL Plt Count 45 L (150-450) k/uL Neutrophils # (Manual) (1.3-7.7) k/uL Lymphocytes # (Manual) (1.0-4.8) k/uL Potassium 3.0 L (3.5-5.1) mmol/L Chloride 110 H (98-107) mmol/L Creatinine 0.51 L (0.52-1.04) mg/dL Glucose 61 L (74-99) mg/dL POC Glucose (mg/dL) (75-99) mg/dL Calcium 7.8 L (8.4-10.2) mg/dL Total Bilirubin 3.8 H (0.2-1.3) mg/dL AST 97 H (14-36) U/L ALT 79 H (9-52) U/L Alkaline Phosphatase 205 H (38-126) U/L Total Protein 4.4 L (6.3-8.2) g/dL Albumin 2.4 L (3.5-5.0) g/dL Urine Bilirubin (Negative) Ur Leukocyte Esterase (Negative) Urine WBC (0-5) /hpf Urine Bacteria (None) /hpf Urine Mucus (None) /hpf C. difficile (EIA) Intrp (Negative) Microbiology - Last 24 Hours (Table) 09/11/18 13:00 Urine Culture - Preliminary Urine,Voided Assessment and Plan Assessment: 1-patient presenting to the hospital with sepsis in this patient who did have fever with a temperature of 101F the patient did have leukopenia meeting criteria for SIRS predominant symptom has been diarrhea and abdominal pain likely secondary to C. difficile colitis, and this patient currently with no other clinical focus of infection (1) C. difficile colitis Current Visit: Yes Status: Acute Code(s): A04.72 - ENTEROCOLITIS D/T CLOSTRIDIUM DIFFICILE, NOT SPCF RECUR SNOMED Code(s): 779797431 (2) Fever Current Visit: Yes Status: Acute Code(s): R50.9 - FEVER, UNSPECIFIED SNOMED Code(s): 426189760 (3) Leukopenia Current Visit: Yes Status: Acute Code(s): D72.819 - DECREASED WHITE BLOOD CELL COUNT, UNSPECIFIED SNOMED Code(s): 05674529 Plan: 1-discontinue the IV vancomycin and cefepime 2- we will start the patient on vancomycin 250 by mouth every 6 hours 3- Questran 4 g every 12 for symptomatic relief and toxin binding We will follow on clinical condition and adjust medication further if needed Thank you for this consultation will follow the patient with you Time with Patient: Greater than 30
--- NOTE | 2018-09-12 13:55 | P.CONS ---
History of Present Illness - Reason for Consult Consult date: 09/12/18 NHL Requesting physician: Balbina Callahan - Chief Complaint fever, diarrhea - History of Present Illness Patient admitted to the hospital from home. She was recently treated for recurrent urinary tract infection. Patient then started having uncontrollable diarrhea associated with abdominal distention and discomfort, fever at home as high as 103 Fahrenheit. Today patient feels weak, ongoing low-grade fevers (100.3 Fahrenheit), appetite is poor, no nausea or vomiting, cough, difficulty breathing, difficulty swallowing, she does have early satiety, no dysuria, hemat uria, she denies black or bloody stool, hemorrhoids, swelling, she is independently ambulatory. Stool found positive for C. diff. Dr. [facility] is following with patient Malignancy history: Patient was initially evaluated in October 2016, found to have a large abdominal & retroperitoneal mass, transferred to a tertiary care facility for work up, core biopsy of mesenteric mass on 12/27/16 revealed Grade II Follicular Lymphoma, staging PET showed extensive involvement with lymphoma above & below diaphragm as well as suspicious lesion in the liver. Treated with 6 cycles of R-CHOP, completed March 2017, treatment follow up PET showed 80%- 90% reduction in metabolic uptake. Placed on maintenance Rituxan. She developed progression in 03/31, started on Bendamustine/Rituxan. She is only had 3 cy cles. Last cycle was July 01 and . Treatment had to be stopped due to prolonged hematological toxicities. Despite supportive care patient has been unable to recover counts. She has had recurrent urinary tract infections, now Clostridium difficile infection. 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 History of Any Multi-Drug Resistant Organisms: None Reported Year Discovered:: 05/12/17 MDRO Source:: ESBL URINE Past Surgical History: Adenoidectomy, Appendectomy, Back Surgery, Cholecystectomy, Hysterectomy, Orthopedic Surgery, Tonsillectomy Additional Past Surgical History / Comment(s): Recent abdominal mass biopsy x 2, BMA, EGD/colonoscopy at [facility], bilateral carpal tunnel release, thyroidectomy (one tiny piece unable to remove), ORIF rt ankle, stents in LLE/vascular stent, cervical surgery C4,C6, thyroidectomy Past Anesthesia/Blood Transfusion Reactions: Postoperative Nausea & Vomiting (PONV) Additional Past Anesthesia/Blood Transfusion Reaction / Comm: blood transfusion(December 2015) "pt stated an hour after transfusion became very nauseated and had quit a bit of vomiting" Past Psychological History: No Psychological Hx Reported Additional Psychological History / Comment(s): lives with family home with her . Is living in [place]. That is where they adopted the 2 youngest foster children who are now 16. Lifelong nonsmoker. No cigarette or alcohol use. no recent travels. No pets in the home. No experience Smoking Status: Never smoker Past Alcohol Use History: None Reported Past Drug Use History: None Reported - Past Family History Mother Family Medical History: Diabetes Mellitus, Renal Disease Additional Family Medical History / Comment(s): Mother of kidney failure at the age of 69yrs. Father Family Medical History: Diabetes Mellitus Additional Family Medical History / Comment(s): Father of a "sugar coma" w hen he was 72 yrs old. Brother(s) Family Medical History: Cancer Sister(s) Family Medical History: Myocardial Infarction ([place]) Additional Family Medical History / Comment(s): Patient has 3 sisters and 2 of them are diabetic. Son(s) Family Medical History: No Reported History (Patient has 4 sons no major medical problems) Additional Family Medical History / Comment(s): Patient has 4 sons with no major medical problems. Daughter(s) Family Medical History: Deep Vein Thrombosis (DVT) Additional Family Medical History / Comment(s): Patient has a daughter with DVT. Medications and Allergies Home Medications Medication Instructions Recorded Confirmed Type Sertraline [Zoloft] 200 mg PO HS 03/07/15 09/11/18 History Atorvastatin [Lipitor] 40 mg PO HS 02/10/16 09/11/18 History Levothyroxine Sodium [Synthroid] 137 mcg PO DAILY 08/17/16 09/11/18 History Glimepiride [Amaryl] 2 mg PO BID 12/19/16 09/11/18 History Tolterodine ER [Detrol LA] 4 mg PO DAILY 03/30/17 09/11/18 History Acyclovir 400 mg PO BID 06/07/18 09/11/18 History Gabapentin [Neurontin] 300 mg PO HS 06/07/18 09/11/18 History HYDROcodone/APAP 10-325MG [[place] 1 tab PO Q6H PRN 06/07/18 09/11/18 History 10-325] Lisinopril [Zestril] 20 mg PO DAILY 06/07/18 09/11/18 History Omeprazole [PriLOSEC] 20 mg PO AC-BID 06/07/18 09/11/18 History Prochlorperazine [Compazine] 10 mg PO Q6H PRN 06/07/18 09/11/18 History Acetaminophen/Diphenhydramine 1 tab PO HS PRN 09/11/18 09/11/18 History [Tylenol PM 500-25mg] Cholestyramine (with Sugar) 4 gm PO HS 09/11/18 09/11/18 History [Cholestyramine Powder] Cranberry Fruit Extract [Cranberry] 200 mg PO DAILY PRN 09/11/18 09/11/18 History Diphenox-Atrop 2.5-0.025 mg 2 tab PO QID PRN 09/11/18 09/11/18 History [Lomotil] Loratadine [Claritin] 10 mg PO DAILY 09/11/18 09/11/18 History Ondansetron [Zofran] 4 mg PO Q6H PRN 09/11/18 09/11/18 History Rivaroxaban [Xarelto] 20 mg PO DAILY 09/11/18 09/11/18 History valACYclovir HCL [Valtrex] 1,000 mg PO DAILY PRN 09/11/18 09/11/18 History Allergies Allergy/AdvReac Type Severity Reaction Status Date / Time Anesthetics - Amide Type AdvReac Nausea & Verified 09/11/18 13:11 Vomiting & Diarrhea Anesthetics - Jonna Type- AdvReac Nausea & Verified 09/11/18 13:11 Parabens Vomiting & Diarrhea oxycodone [From OxyContin] AdvReac Nausea & Verified 09/11/18 13:11 Vomiting Physical Exam Vitals: Vital Signs Temp Pulse Pulse Resp BP BP Pulse Ox 09/12/18 05:00 100.3 F H 87 16 143/87 95 09/11/18 23:40 74 16 09/11/18 21:30 98.1 F 74 16 138/60 94 L 09/11/18 18:03 98.4 F 83 17 142/67 97 09/11/18 16:35 98.9 F 84 18 141/73 97 09/11/18 15:11 101.4 F H 82 18 162/77 95 09/11/18 13:32 100.7 F H 78 18 135/93 97 09/11/18 12:01 99.9 F H 80 18 143/72 98 Intake and Output 09/11/18 09/12/18 09/12/18 22:59 06:59 14:59 Other: # Voids 3 3 # Bowel Movements 1 1 - Constitutional General appearance: cooperative, morbidly obese, no acute distress - EENT Eyes: anicteric sclerae, EOMI ENT: hearing grossly normal, normal oropharynx - Neck Neck: no lymphadenopathy - Respiratory Respiratory: bilateral: CTA - Cardiovascular Rhythm: regular Heart sounds: normal: S1, S2 Abnormal Heart Sounds: no systolic murmur, no diastolic murmur, no rub, no S3 Gallop, no S4 Gallop, no click, no other leg Peripheral Edema: bilateral: None - Gastrointestinal General gastrointestinal: no absent bowel sounds, no decreased bowel sounds, distended, no hepatomegaly, no hyperactive bowel sounds, normal bowel sounds, no organomegaly, no rigid, no scaphoid, soft, no splenomegaly, tenderness, no umbilical hernia, no ventral hernia Localized gastrointestinal: tender: LUQ - Integumentary Integumentary: normal - Neurologic Neurologic: CNII-XII intact - Musculoskeletal Musculoskeletal: strength equal bilaterally - Psychiatric Psychiatric: A&O x's 3, appropriate affect, intact judgment & insight Results CBC & Chem 7: 09/12/18 07:54 09/12/18 07:54 Labs: Abnormal Lab Results - Last 24 Hours (Table) 09/11/18 09/11/18 09/11/18 Range/Units 12:25 12:25 13:00 WBC 1.0 L* (3.8-10.6) k/uL RBC 3.17 L (3.80-5.40) m/uL Hgb 11.0 L (11.4-16.0) gm/dL Hct 32.2 L (34.0-46.0) % MCV 101.5 H (80.0-100.0) fL Plt Count 60 L (150-450) k/uL Neutrophils # (Manual) 0.65 L (1.3-7.7) k/uL Lymphocytes # (Manual) 0.11 L (1.0-4.8) k/uL Potassium 3.3 L (3.5-5.1) mmol/L Chloride (98-107) mmol/L Creatinine (0.52-1.04) mg/dL Glucose 100 H (74-99) mg/dL POC Glucose (mg/dL) (75-99) mg/dL Calcium 8.2 L (8.4-10.2) mg/dL Total Bilirubin 3.2 H (0.2-1.3) mg/dL AST 153 H (14-36) U/L ALT 89 H (9-52) U/L Alkaline Phosphatase 224 H (38-126) U/L Total Protein 5.0 L (6.3-8.2) g/dL Albumin 2.8 L (3.5-5.0) g/dL Urine Bilirubin 1+ H (Negative) Ur Leukocyte Esterase Small H (Negative) Urine WBC 15 H (0-5) /hpf Urine Bacteria Many H (None) /hpf Urine Mucus Rare H (None) /hpf C. difficile (EIA) Intrp (Negative) 09/11/18 09/11/18 09/11/18 Range/Units 20:18 20:38 23:50 WBC (3.8-10.6) k/uL RBC (3.80-5.40) m/uL Hgb (11.4-16.0) gm/dL Hct (34.0-46.0) % MCV (80.0-100.0) fL Plt Count (150-450) k/uL Neutrophils # (Manual) (1.3-7.7) k/uL Lymphocytes # (Manual) (1.0-4.8) k/uL Potassium (3.5-5.1) mmol/L Chloride (98-107) mmol/L Creatinine (0.52-1.04) mg/dL Glucose (74-99) mg/dL POC Glucose (mg/dL) 61 L 68 L (75-99) mg/dL Calcium (8.4-10.2) mg/dL Total Bilirubin (0.2-1.3) mg/dL AST (14-36) U/L ALT (9-52) U/L Alkaline Phosphatase (38-126) U/L Total Protein (6.3-8.2) g/dL Albumin (3.5-5.0) g/dL Urine Bilirubin (Negative) Ur Leukocyte Esterase (Negative) Urine WBC (0-5) /hpf Urine Bacteria (None) /hpf Urine Mucus (None) /hpf C. difficile (EIA) Intrp Positive A (Negative) 09/12/18 09/12/18 Range/Units 07:54 07:54 WBC 1.3 L* (3.8-10.6) k/uL RBC 2.84 L (3.80-5.40) m/uL Hgb 9.9 L (11.4-16.0) gm/dL Hct 29.4 L (34.0-46.0) % MCV 103.7 H (80.0-100.0) fL Plt Count 45 L (150-450) k/uL Neutrophils # (Manual) (1.3-7.7) k/uL Lymphocytes # (Manual) (1.0-4.8) k/uL Potassium 3.0 L (3.5-5.1) mmol/L Chloride 110 H (98-107) mmol/L Creatinine 0.51 L (0.52-1.04) mg/dL Glucose 61 L (74-99) mg/dL POC Glucose (mg/dL) (75-99) mg/dL Calcium 7.8 L (8.4-10.2) mg/dL Total Bilirubin 3.8 H (0.2-1.3) mg/dL AST 97 H (14-36) U/L ALT 79 H (9-52) U/L Alkaline Phosphatase 205 H (38-126) U/L Total Protein 4.4 L (6.3-8.2) g/dL Albumin 2.4 L (3.5-5.0) g/dL Urine Bilirubin (Negative) Ur Leukocyte Esterase (Negative) Urine WBC (0-5) /hpf Urine Bacteria (None) /hpf Urine Mucus (None) /hpf C. difficile (EIA) Intrp (Negative) Microbiology - Last 24 Hours (Table) 09/11/18 13:00 Urine Culture - Preliminary Urine,Voided CT scan - abdomen: report reviewed CT scan - pelvis: report reviewed Assessment and Plan (1) Fever Narrative/Plan: Pancultures are pending. Clostridium difficile is positive, patient is on anti biotics, patient has been seen by infectious disease. Continue monitoring vital signs Current Visit: Yes Status: Acute Priority: High Code(s): R50.9 - FEVER, UNSPECIFIED SNOMED Code(s): 487103708 (2) C. difficile colitis Current Visit: Yes Status: Acute Code(s): A04.72 - ENTEROCOLITIS D/T CLOSTRIDIUM DIFFICILE, NOT SPCF RECUR SNOMED Code(s): 338908525 (3) Antineoplastic chemotherapy induced pancytopenia Narrative/Plan: Patient has prolonged pancytopenia from chemotherapy. Patient only completed 3 cycles of her chemotherapy for recurrence of NHL. Patient has been started on GCSF. Transfuse for hemoglobin less than 7 or if symptomatic. Transfuse platelets for platelet count less than 10,000, unless symptomatic. CBC daily Current Visit: Yes Status: Chronic Priority: High Code(s): D61.810 - ANTINEOPLASTIC CHEMOTHERAPY INDUCED PANCYTOPENIA; T45.1X5A - ADVERSE EFFECT OF ANTINEOPLASTIC AND IMMUNOSUP DRUGS, INIT SNOMED Code(s): 366050263807365 (4) NHL (non-Hodgkin's lymphoma) Narrative/Plan: No evidence to suggest disease progression at this time. Continue on observation Current Visit: No Status: Chronic Priority: Medium Code(s): C85.90 - NON- HODGKIN LYMPHOMA, UNSPECIFIED, UNSPECIFIED SITE SNOMED Code(s): 296323088 Plan: Doctor attests: I performed a history and physical examination, developed impression and plan of this patient, discussed with dictator. I agree with dictators note, documented as a scribe.
[2018-09-12 17:09] LABS: Glucose,Whole Blood 70 mg/dL (75-99)
[2018-09-12] MEDS: metroNIDAZOLE-NS PMX 500 MG in SALINE 1 100ML.BAG IVPB SCH ×2 (17:58→23:23)
[2018-09-12] MEDS: CHOLESTYRAMINE (WITH SUGAR) 4 GM PACKET PO SCH (20:30)
[2018-09-12] MEDS: ATORVASTATIN 40 MG TAB PO SCH (20:31)
[2018-09-12] MEDS: SERTRALINE 100 MG TAB PO SCH (20:31)
[2018-09-12] MEDS: GABAPENTIN 300 MG CAP PO SCH (20:31)
[2018-09-12 20:44] LABS: Glucose,Whole Blood 79 mg/dL (75-99)
[2018-09-12] MEDS: CHERRY FLAVOR 60 ML BOTTLE PO PRN (23:23)
[2018-09-13] MEDS: VANCOMYCIN ORAL SOLUTION 250 MG/5 ML BOTTLE PO SCH ×3 (05:58→17:28)
[2018-09-13] MEDS: CHERRY FLAVOR 60 ML BOTTLE PO PRN ×3 (05:58→17:28)
[2018-09-13] MEDS: LEVOTHYROXINE 137 MCG TAB PO SCH (05:58)
[2018-09-13 07:13] LABS: Glucose,Whole Blood 68 mg/dL (75-99)
[2018-09-13] MEDS: INSULIN ASPART (NovoLOG) 100 UNIT/ML VIAL SQ SCH ×4 (07:28→21:26)
[2018-09-13] MEDS: metroNIDAZOLE-NS PMX 500 MG in SALINE 1 100ML.BAG IVPB SCH ×2 (07:31→16:27)
[2018-09-13] MEDS: RIVAROXABAN 20 MG TAB PO SCH (07:32)
[2018-09-13] MEDS: HYDROcodone/APAP 10-325MG 1 EACH TAB PO PRN ×3 (07:32→21:25)
[2018-09-13 07:39] LABS: Glucose,Whole Blood 103 mg/dL (75-99)
[2018-09-13] MEDS: FILGRASTIM-SNDZ 480 MCG/0.8 ML SYRINGE SQ SCH (08:40)
--- NOTE | 2018-09-13 09:16 | P.PN ---
Subjective Progress Note Date: 09/13/18 Patient is a 57-year-old female with a PMH of factor V Leiden, and intra- abdominal follicular lymphoma with metastasis and multiple admissions for febrile neutropenia who presented to the ED for concerns of neutropenic fever. The patient also had endorsed abdominal pain and diarrhea, gradually worsening at home over the past few days. The patient underwent an extensive evaluation in the ED with WBC count 1.0, platelets 60, AST 153, ALT 89, alk phos 224, with an unremarkable abdominal pelvis CT. The patient was subsequently admitted to the medicine service for further management of neutropenic fever with suspected colitis. The patient was initially started on vancomycin and cefepime therapy. C. diff screen was positive and the patient was placed on contact precautions and also started on metronidazole. Infectious disease and oncology were consulted. The patient was switched to Vancomycin PO and continued on Flagyl IV. The patient was seen and examined at the bedside on 09/13/2018. The patient reports continued abdominal pain, 6 out of 10 diffusely though notes that her stools are more formed now and she has less bowel movements. She is denying any additional complaints including chest pain, shortness of breath, fever, chills, nausea, vomiting. Objective - Vital Signs Vital signs: Vital Signs Temp 97.8 F 09/13/18 05:00 Pulse 84 09/13/18 05:00 Resp 18 09/13/18 05:00 BP 176/75 09/13/18 05:00 Pulse Ox 98 09/13/18 05:00 Intake & Output 09/12/18 09/13/18 09/13/18 18:59 06:59 18:59 Intake Total 1100 Balance 1100 Intake: Intake, IV Titration 1100 Amount Cefepime 2 gm In Sodium 100 Chloride 0.9% 100 ml @ 200 mls/hr IVPB Q8HR BETTE Rx#:[id number] Potassium Chloride 10 meq 100 In Water For Injection 1 100ml.bag @ 100 mls/hr IVPB ONCE [facility] Rx#: [id number] Sodium Chloride 0.9% 1, 800 000 ml @ 100 mls/hr IV . Q10H BETTE Rx#:[id number] metroNIDAZOLE-NS PMX 500 100 mg In Saline 1 100ml.bag @ 100 mls/hr IVPB Q8H BETTE Rx#:[id number] Other: Voiding Method Toilet # Voids 3 1 # Bowel Movements 4 1 - Exam General: Non-toxic, in no acute distress, appears stated age, obese HEENT: NC/AT, anicteric sclerae, moist conjunctiva, no lid-lag, PERRLA Cardiovascular: S1/S2 wnl, no murmurs, rubs, or gallops Lungs: Clear to auscultation, normal respiratory effort, no accessory muscle use Abdominal: Soft, nontender, non-distended, no guarding, rebound, or rigidity Skin: Warm, dry Extremities: No edema or contractures Psychiatric: Alert and oriented to person, place and time, appropriate affect Neuro: CN II-XII grossly intact, Strength 5/5 in all 4 extremities, Speech intact, Sensation to light touch grossly intact throughout - Labs CBC & Chem 7: 09/12/18 07:54 09/12/18 07:54 Labs: Abnormal Lab Results - Last 24 Hours (Table) 09/12/18 09/13/18 09/13/18 Range/Units 17:07 07:09 07:29 POC Glucose (mg/dL) 70 L 68 L 103 H (75-99) mg/dL Microbiology - Last 24 Hours (Table) 09/11/18 13:00 Urine Culture - Preliminary Urine,Voided Gram Neg Bacilli 09/11/18 13:20 Blood Culture - Preliminary Blood No Growth after 24 hours Assessment and Plan Plan: C diff colitis -Continue with vancomycin by mouth and metronidazole IV as per infectious disease. Patient also started on Questran. -Neutropenic precautions -Continue with IV fluids 100 mL an hour -Oncology recommendations appreciated -Continue with pain control with [place] and morphine when necessary -Continue with nothing by mouth Thrombocytopenia, chronic -Hematology consulted -Monitor CBC Abnormal LFTs, improved -Likely secondary to colitis -Monitor for now Factor V Leiden -Continue with home medication: Xarelto Hypokalemia -Replace and monitor DVT//GI prophylaxis -Xarelto Discussed with: Patient Anticipated discharge date: September 15, [address]: Home A total of 35 minutes was spent on the care of this complex patient more than 50% of the time was spent in counseling and care coordination.
[2018-09-13 09:19] LABS: ALT 64 U/L (9-52); AST 51 U/L (14-36); Albumin 2.3 g/dL (3.5-5.0); Alkaline Phosphatase 196 U/L (38-126); Anion Gap 3 mmol/L; Blood Urea Nitrogen 8 mg/dL (7-17); Calcium 8.2 mg/dL (8.4-10.2); Carbon Dioxide 25 mmol/L (22-30); Chloride 112 mmol/L (98-107); Glucose 93 mg/dL (74-99); Magnesium 1.7 mg/dL (1.6-2.3); Potassium 3.4 mmol/L (3.5-5.1); Sodium 140 mmol/L (137-145); Total Protein 4.2 g/dL (6.3-8.2)
[2018-09-13 09:35] LABS: HCT 30.1 % (34.0-46.0); HGB 10.3 gm/dL (11.4-16.0); MCH 35.4 pg (25.0-35.0); MCHC 34.3 g/dL (31.0-37.0); MCV 103.3 fL (80.0-100.0); Macrocytosis Slight; Mean Platelet Volume 9.3; RBC 2.92 m/uL (3.80-5.40); RDW 14.9 % (11.5-15.5)
[2018-09-13 09:37] LABS: Platelet Count 45 k/uL (150-450); WBC 0.8 k/uL (3.8-10.6)
[2018-09-13 10:16] LABS: Glucose,Whole Blood 83 mg/dL (75-99)
[2018-09-13] MEDS: SODIUM CHLORIDE 0.9% 1,000 ML IV SCH ×2 (10:52→20:11)
[2018-09-13] MEDS: CHOLESTYRAMINE (WITH SUGAR) 4 GM PACKET PO SCH ×2 (10:54→21:23)
[2018-09-13 11:39] LABS: Glucose,Whole Blood 111 mg/dL (75-99)
--- NOTE | 2018-09-13 14:08 | PN ---
PROGRESS NOTE DATE OF SERVICE: 09/13/2018 REASON FOR FOLLOWUP: C difficile colitis. INTERVAL HISTORY: The patient is afebrile. The patient is breathing comfortably. The patient currently denies having any abdominal pain. Patient's diarrhea has decreased to only 2 BMs today and they are forming up. No blood or mucus in the stool. No chest pain, shortness of breath or cough. PHYSICAL EXAMINATION: Blood pressure is 139/72 with a pulse of 69, temperature 97, she is 97% on room air. General description is a middle-aged female, lying in bed in no distress. RESPIRATORY SYSTEM: Unlabored breathing, clear to auscultation anteriorly. HEART: S1, S2. Regular rate and rhythm. ABDOMEN: Soft, no tenderness. LABS: Hemoglobin 10.1, white count of 0.8. There was a mildly elevated creatinine at 0.46. DIAGNOSTIC IMPRESSION AND PLAN: Patient admitted to the hospital with sepsis, source of acute C difficile colitis. The patient is currently covered with oral vancomycin to continue. Will start her on clear liquid without discussion with Oncology. Advised to increase the probiotic intake. Continue supportive care. MMODL / IJN: [id number] /
--- NOTE | 2018-09-13 16:12 | P.PN ---
Subjective Progress Note Date: 09/13/18 Principal diagnosis: Clostridium difficile infection, urinary tract infection, history of treatment for non-Hodgkin's lymphoma In follow-up today patient is feeling a little bit better, still having terrible diarrhea, she is asking for more solid food but, unfortunately her white count is not conducive to that. No fevers, chills, nausea or vomiting, chest pain, abdominal pain, mild bloating, occasional cramping with stool, no dysuria, hematuria, lower extremity swelling or acute pain Objective - Vital Signs Vital signs: Vital Signs Temp 97 F L 09/13/18 11:43 Pulse 69 09/13/18 11:43 Resp 18 09/13/18 11:43 BP 139/72 09/13/18 11:43 Pulse Ox 97 09/13/18 11:43 Intake & Output 09/12/18 09/13/18 09/13/18 18:59 06:59 18:59 Intake Total 1100 Balance 1100 Intake: Intake, IV Titration 1100 Amount Cefepime 2 gm In Sodium 100 Chloride 0.9% 100 ml @ 200 mls/hr IVPB Q8HR BETTE Rx#:[id number] Potassium Chloride 10 meq 100 In Water For Injection 1 100ml.bag @ 100 mls/hr IVPB ONCE [facility] Rx#: [id number] Sodium Chloride 0.9% 1, 800 000 ml @ 100 mls/hr IV . Q10H BETTE Rx#:[id number] metroNIDAZOLE-NS PMX 500 100 mg In Saline 1 100ml.bag @ 100 mls/hr IVPB Q8H BETTE Rx#:[id number] Other: Voiding Method Toilet # Voids 3 1 2 # Bowel Movements 4 1 2 - Constitutional General appearance: Present: cooperative, morbidly obese - EENT Eyes: Present: anicteric sclerae, EOMI ENT: Present: hearing grossly normal - Respiratory Details: Respirations even and unlabored - Cardiovascular Details: Skin is warm and dry, extremities show no cyanosis - Neurologic Neurologic: Present: CNII-XII intact - Musculoskeletal Musculoskeletal: Present: strength equal bilaterally - Psychiatric Psychiatric: Present: A&O x's 3, appropriate affect, intact judgment & insight - Labs CBC & Chem 7: 09/13/18 08:43 09/13/18 08:43 Labs: Abnormal Lab Results - Last 24 Hours (Table) 09/12/18 09/13/18 09/13/18 Range/Units 17:07 07:09 07:29 WBC (3.8-10.6) k/uL RBC (3.80-5.40) m/uL Hgb (11.4-16.0) gm/dL Hct (34.0-46.0) % MCV (80.0-100.0) fL MCH (25.0-35.0) pg Plt Count (150-450) k/uL Potassium (3.5-5.1) mmol/L Chloride (98-107) mmol/L Creatinine (0.52-1.04) mg/dL POC Glucose (mg/dL) 70 L 68 L 103 H (75-99) mg/dL Calcium (8.4-10.2) mg/dL Total Bilirubin (0.2-1.3) mg/dL AST (14-36) U/L ALT (9-52) U/L Alkaline Phosphatase (38-126) U/L Total Protein (6.3-8.2) g/dL Albumin (3.5-5.0) g/dL 09/13/18 09/13/18 09/13/18 Range/Units 08:43 08:43 11:36 WBC 0.8 L* (3.8-10.6) k/uL RBC 2.92 L (3.80-5.40) m/uL Hgb 10.3 L (11.4-16.0) gm/dL Hct 30.1 L (34.0-46.0) % MCV 103.3 H (80.0-100.0) fL MCH 35.4 H (25.0-35.0) pg Plt Count 45 L (150-450) k/uL Potassium 3.4 L (3.5-5.1) mmol/L Chloride 112 H (98-107) mmol/L Creatinine 0.46 L (0.52-1.04) mg/dL POC Glucose (mg/dL) 111 H (75-99) mg/dL Calcium 8.2 L (8.4-10.2) mg/dL Total Bilirubin 2.0 H (0.2-1.3) mg/dL AST 51 H (14-36) U/L ALT 64 H (9-52) U/L Alkaline Phosphatase 196 H (38-126) U/L Total Protein 4.2 L (6.3-8.2) g/dL Albumin 2.3 L (3.5-5.0) g/dL Microbiology - Last 24 Hours (Table) 09/11/18 13:20 Blood Culture - Preliminary Blood No Growth after 48 hours 09/11/18 13:00 Urine Culture - Preliminary Urine,Voided Gram Neg Bacilli Assessment and Plan (1) Fever Narrative/Plan: T-max 100.3 Fahrenheit overnight. No fever since. Current Visit: Yes Status: Acute Priority: High Code(s): R50.9 - FEVER, UNSPECIFIED SNOMED Code(s): 033486537 (2) C. difficile colitis Narrative/Plan: Patient is being treated accordingly through Infectious Disease Current Visit: Yes Status: Acute Priority: High Code(s): A04.72 - ENTEROCOLITIS D/T CLOSTRIDIUM DIFFICILE, NOT SPCF RECUR SNOMED Code(s): 500887005 (3) Antineoplastic chemotherapy induced pancytopenia Narrative/Plan: Patient has progressive decline in her counts when she is suffering from acute illness. Currently her white blood cells are 0.8 with an untreatable differential. Continue G-CSF. Hemoglobin is 10.3, no acute intervention needed. Platelets are 45,000 today, no aspirin, NSAIDs or anticoagulation. SCDs for DVT prophylaxis. Current Visit: Yes Status: Chronic Priority: High Code(s): D61.810 - ANTINEOPLASTIC CHEMOTHERAPY INDUCED PANCYTOPENIA; T45.1X5A - ADVERSE EFFECT OF ANTINEOPLASTIC AND IMMUNOSUP DRUGS, INIT SNOMED Code(s): 688797993717174 (4) NHL (non-Hodgkin's lymphoma) Narrative/Plan: No evidence to suggest disease progression at this time. Continue on observation Current Visit: No Status: Chronic Priority: Medium Code(s): C85.90 - NON-HODGKIN LYMPHOMA, UNSPECIFIED, UNSPECIFIED SITE SNOMED Code(s): 736084747 Plan: Patient does have a urine culture positive for gram-negative bacilli, Infectious Disease is following. Patient is on antibiotics
[2018-09-13 16:57] LABS: Glucose,Whole Blood 94 mg/dL (75-99)
[2018-09-13 20:46] LABS: Glucose,Whole Blood 88 mg/dL (75-99)
[2018-09-13] MEDS: ATORVASTATIN 40 MG TAB PO SCH (21:24)
[2018-09-13] MEDS: SERTRALINE 100 MG TAB PO SCH (21:24)
[2018-09-13] MEDS: GABAPENTIN 300 MG CAP PO SCH (21:25)
[2018-09-14] MEDS: VANCOMYCIN ORAL SOLUTION 250 MG/5 ML BOTTLE PO SCH ×4 (00:57→17:36)
[2018-09-14] MEDS: CHERRY FLAVOR 60 ML BOTTLE PO PRN ×2 (00:58→06:19)
[2018-09-14] MEDS: metroNIDAZOLE-NS PMX 500 MG in SALINE 1 100ML.BAG IVPB SCH ×3 (00:58→16:13)
[2018-09-14] MEDS: LEVOTHYROXINE 137 MCG TAB PO SCH (06:18)
[2018-09-14] MEDS: HYDROcodone/APAP 10-325MG 1 EACH TAB PO PRN ×2 (06:21→20:24)
[2018-09-14] MEDS: SODIUM CHLORIDE 0.9% 1,000 ML IV SCH ×3 (06:21→20:28)
[2018-09-14 07:30] LABS: Glucose,Whole Blood 97 mg/dL (75-99)
[2018-09-14 07:31] LABS: HCT 32.3 % (34.0-46.0); HGB 10.6 gm/dL (11.4-16.0); Hypochromasia Slight; MCH 34.3 pg (25.0-35.0); MCHC 32.7 g/dL (31.0-37.0); MCV 104.7 fL (80.0-100.0); Macrocytosis Moderate; Mean Platelet Volume 8.6; RBC 3.09 m/uL (3.80-5.40); RDW 14.4 % (11.5-15.5)
[2018-09-14 07:35] LABS: ALT 57 U/L (9-52); AST 37 U/L (14-36); Albumin 2.4 g/dL (3.5-5.0); Alkaline Phosphatase 194 U/L (38-126); Anion Gap 4 mmol/L; Blood Urea Nitrogen 6 mg/dL (7-17); Calcium 8.1 mg/dL (8.4-10.2); Carbon Dioxide 24 mmol/L (22-30); Chloride 113 mmol/L (98-107); Glucose 85 mg/dL (74-99); Magnesium 1.7 mg/dL (1.6-2.3); Potassium 3.6 mmol/L (3.5-5.1); Sodium 141 mmol/L (137-145); Total Bilirubin 1.6 mg/dL (0.2-1.3); Total Protein 4.4 g/dL (6.3-8.2)
[2018-09-14] MEDS: INSULIN ASPART (NovoLOG) 100 UNIT/ML VIAL SQ SCH ×4 (07:37→20:10)
[2018-09-14 07:41] LABS: Platelet Count 46 k/uL (150-450); WBC 0.8 k/uL (3.8-10.6)
[2018-09-14] MEDS: FILGRASTIM-SNDZ 480 MCG/0.8 ML SYRINGE SQ SCH (09:14)
[2018-09-14] MEDS: RIVAROXABAN 20 MG TAB PO SCH (09:15)
[2018-09-14] MEDS: CHOLESTYRAMINE (WITH SUGAR) 4 GM PACKET PO SCH ×2 (10:23→20:25)
[2018-09-14 11:22] LABS: Glucose,Whole Blood 136 mg/dL (75-99)
[2018-09-14] MEDS ORDERED: POTASSIUM CHLORIDE ER 20 MEQ TAB.ER PO STA (13:26)
--- NOTE | 2018-09-14 13:26 | P.PN ---
Subjective Progress Note Date: 09/14/18 Patient is a 57-year-old female with a PMH of factor V Leiden, and intra- abdominal follicular lymphoma with metastasis and multiple admissions for febrile neutropenia who presented to the ED for concerns of neutropenic fever. The patient also had endorsed abdominal pain and diarrhea, gradually worsening at home over the past few days. The patient underwent an extensive evaluation in the ED with WBC count 1.0, platelets 60, AST 153, ALT 89, alk phos 224, with an unremarkable abdominal pelvis CT. The patient was subsequently admitted to the medicine service for further management of neutropenic fever with suspected colitis. The patient was initially started on vancomycin and cefepime therapy. C. diff screen was positive and the patient was placed on contact precautions and also started on metronidazole. Infectious disease and oncology were consulted. The patient was switched to Vancomycin PO and continued on Flagyl IV. The patient was seen and examined at the bedside on 09/14/2018. The patient's abdominal pain has resolved though she continues to have cramps prior to her bowel movements. She notes having 4 BMs in the past 24 hours, significantly improved, and they are more formed. She is denying chest pain, SOB, fever, chills, nausea, or vomiting. Objective - Vital Signs Vital signs: Vital Signs Temp 97 F L 09/14/18 12:12 Pulse 65 09/14/18 12:12 Resp 20 09/14/18 12:12 BP 139/70 09/14/18 12:12 Pulse Ox 97 09/14/18 12:12 Intake & Output 09/13/18 09/14/18 09/14/18 18:59 06:59 18:59 Intake Total 640 Balance 640 Intake: Intake, IV Titration 400 Amount Sodium Chloride 0.9% 1, 300 000 ml @ 100 mls/hr IV . Q10H [facility]TE Rx#:[id number] metroNIDAZOLE-NS PMX 500 100 mg In Saline 1 100ml.bag @ 100 mls/hr IVPB Q8HR BETTE Rx#:[id number] Oral 240 Other: Voiding Method Toilet Toilet Toilet # Voids 2 1 # Bowel Movements 2 1 - Exam General: Non-toxic, in no acute distress, appears stated age, obese HEENT: NC/AT, anicteric sclerae, moist conjunctiva, no lid-lag, PERRLA Cardiovascular: S1/S2 wnl, no murmurs, rubs, or gallops Lungs: Clear to auscultation, normal respiratory effort, no accessory muscle use Abdominal: Soft, nontender, non-distended, no guarding, rebound, or rigidity Skin: Warm, dry Extremities: No edema or contractures Psychiatric: Alert and oriented to person, place and time, appropriate affect Neuro: CN II-XII grossly intact, Strength 5/5 in all 4 extremities, Speech intact, Sensation to light touch grossly intact throughout - Labs CBC & Chem 7: 09/14/18 06:54 09/14/18 06:54 Labs: Abnormal Lab Results - Last 24 Hours (Table) 09/14/18 09/14/18 09/14/18 Range/Units 06:54 06:54 11:21 WBC 0.8 L* (3.8-10.6) k/uL RBC 3.09 L (3.80-5.40) m/uL Hgb 10.6 L (11.4-16.0) gm/dL Hct 32.3 L (34.0-46.0) % MCV 104.7 H (80.0-100.0) fL Plt Count 46 L (150-450) k/uL Chloride 113 H (98-107) mmol/L BUN 6 L (7-17) mg/dL Creatinine 0.49 L (0.52-1.04) mg/dL POC Glucose (mg/dL) 136 H (75-99) mg/dL Calcium 8.1 L (8.4-10.2) mg/dL Total Bilirubin 1.6 H (0.2-1.3) mg/dL AST 37 H (14-36) U/L ALT 57 H (9-52) U/L Alkaline Phosphatase 194 H (38-126) U/L Total Protein 4.4 L (6.3-8.2) g/dL Albumin 2.4 L (3.5-5.0) g/dL Microbiology - Last 24 Hours (Table) 09/11/18 13:00 Urine Culture - Final Urine,Voided Proteus mirabilis 09/11/18 13:20 Blood Culture - Preliminary Blood No Growth after 48 hours Assessment and Plan Plan: C diff colitis -Continue with vancomycin by mouth and metronidazole IV as per infectious disease. Patient also started on Questran. -Neutropenic precautions -Oncology recommendations appreciated -Continue with pain control with [place] and morphine when necessary -Started on Clear liquid diet. Will likely switch to Full Liquid in am Pancytopenia w/ severe neutropenia, chemotherapy induced -C/w G-CSF -Will DC Xarelto for now Abnormal LFTs, improved -Likely secondary to colitis -Monitor for now Hypothyroidism -C/w home dose Synthroid Factor V Leiden -Will hold on Xarelto for now since platelets continue to be low Hypokalemia, Resolved DVT//GI prophylaxis -Xarelto Discussed with: Patient Anticipated discharge date: September 16, [address]: Home A total of 35 minutes was spent on the care of this complex patient more than 50% of the time was spent in counseling and care coordination.
[2018-09-14 17:09] LABS: Glucose,Whole Blood 96 mg/dL (75-99)
[2018-09-14 19:44] LABS: Glucose,Whole Blood 114 mg/dL (75-99)
[2018-09-14] MEDS: GABAPENTIN 300 MG CAP PO SCH (20:23)
[2018-09-14] MEDS: ATORVASTATIN 40 MG TAB PO SCH (20:23)
[2018-09-14] MEDS: SERTRALINE 100 MG TAB PO SCH (20:24)
[2018-09-15] MEDS: VANCOMYCIN ORAL SOLUTION 250 MG/5 ML BOTTLE PO SCH ×5 (00:32→23:31)
[2018-09-15] MEDS: CHERRY FLAVOR 60 ML BOTTLE PO PRN ×5 (00:32→23:32)
[2018-09-15] MEDS: metroNIDAZOLE-NS PMX 500 MG in SALINE 1 100ML.BAG IVPB SCH ×4 (00:32→23:31)
[2018-09-15] MEDS: LEVOTHYROXINE 137 MCG TAB PO SCH (06:01)
[2018-09-15] MEDS: SODIUM CHLORIDE 0.9% 1,000 ML IV SCH ×2 (06:03→21:22)
[2018-09-15 07:15] LABS: HCT 30.5 % (34.0-46.0); HGB 9.7 gm/dL (11.4-16.0); Hypochromasia Slight; MCH 33.3 pg (25.0-35.0); MCHC 31.7 g/dL (31.0-37.0); MCV 104.8 fL (80.0-100.0); Macrocytosis Moderate; Mean Platelet Volume 7.9; RBC 2.91 m/uL (3.80-5.40); RDW 14.5 % (11.5-15.5)
[2018-09-15 07:20] LABS: WBC 1.1 k/uL (3.8-10.6)
[2018-09-15 07:24] LABS: Platelet Count 45 k/uL (150-450)
[2018-09-15] MEDS: INSULIN ASPART (NovoLOG) 100 UNIT/ML VIAL SQ SCH ×4 (07:27→21:16)
[2018-09-15 07:30] LABS: ALT 48 U/L (9-52); AST 30 U/L (14-36); Albumin 2.2 g/dL (3.5-5.0); Alkaline Phosphatase 166 U/L (38-126); Anion Gap 3 mmol/L; Blood Urea Nitrogen 5 mg/dL (7-17); Calcium 8.1 mg/dL (8.4-10.2); Carbon Dioxide 23 mmol/L (22-30); Chloride 114 mmol/L (98-107); Glucose 83 mg/dL (74-99); Potassium 3.5 mmol/L (3.5-5.1); Sodium 140 mmol/L (137-145); Total Bilirubin 1.4 mg/dL (0.2-1.3); Total Protein 4.1 g/dL (6.3-8.2)
[2018-09-15 07:37] LABS: Glucose,Whole Blood 80 mg/dL (75-99)
[2018-09-15] MEDS: CHOLESTYRAMINE (WITH SUGAR) 4 GM PACKET PO SCH ×2 (08:15→21:22)
[2018-09-15] MEDS: ONDANSETRON 4 MG/2 ML VIAL IVP PRN (09:43)
[2018-09-15 11:44] LABS: Glucose,Whole Blood 89 mg/dL (75-99)
[2018-09-15] MEDS: FILGRASTIM-SNDZ 480 MCG/0.8 ML SYRINGE SQ SCH (12:20)
--- NOTE | 2018-09-15 13:14 | P.PN ---
Subjective Progress Note Date: 09/15/18 Patient is a 57-year-old female with a PMH of factor V Leiden, and intra- abdominal follicular lymphoma with metastasis and multiple admissions for febrile neutropenia who presented to the ED for concerns of neutropenic fever. The patient also had endorsed abdominal pain and diarrhea, gradually worsening at home over the past few days. The patient underwent an extensive evaluation in the ED with WBC count 1.0, platelets 60, AST 153, ALT 89, alk phos 224, with an unremarkable abdominal pelvis CT. The patient was subsequently admitted to the medicine service for further management of neutropenic fever with suspected colitis. The patient was initially started on vancomycin and cefepime therapy. C. diff screen was positive and the patient was placed on contact precautions and also started on metronidazole. Infectious disease and oncology were consulted. The patient was switched to Vancomycin PO and continued on Flagyl IV. The patient was seen and examined at the bedside on 09/15/2018. The patient continues to have no abdominal pain though notes that after she took a small amount of chicken broth yesterday evening, she had severe abdominal cramps and 2 episodes of diarrhea. She reports 4 BMs in the past 24 hours. She otherwise denied fever, chills, chest pain, SOB, nausea, or vomiting. Objective - Vital Signs Vital signs: Vital Signs Temp 97 F L 09/15/18 12:41 Pulse 69 09/15/18 12:41 Resp 20 09/15/18 12:41 BP 150/84 09/15/18 12:41 Pulse Ox 96 09/15/18 12:41 Intake & Output 09/14/18 09/15/18 09/15/18 18:59 06:59 18:59 Intake Total 1600 1400 Balance 1600 1400 Weight 116.619 kg Intake: Intake, IV Titration 800 1400 Amount Sodium Chloride 0.9% 1, 700 1200 000 ml @ 100 mls/hr IV . Q10H [facility]TE Rx#:[id number] metroNIDAZOLE-NS PMX 500 100 200 mg In Saline 1 100ml.bag @ 100 mls/hr IVPB Q8HR BETTE Rx#:[id number] Oral 800 Other: Voiding Method Toilet Toilet Toilet # Voids 2 2 # Bowel Movements 1 4 - Exam General: Non-toxic, in no acute distress, appears stated age, obese HEENT: NC/AT, anicteric sclerae, moist conjunctiva, no lid-lag, PERRLA Cardiovascular: S1/S2 wnl, no murmurs, rubs, or gallops Lungs: Clear to auscultation, normal respiratory effort, no accessory muscle use Abdominal: Soft, nontender, non-distended, no guarding, rebound, or rigidity Skin: Warm, dry Extremities: No edema or contractures Psychiatric: Alert and oriented to person, place and time, appropriate affect Neuro: CN II-XII grossly intact, Strength 5/5 in all 4 extremities, Speech intact, Sensation to light touch grossly intact throughout - Labs CBC & Chem 7: 09/15/18 06:50 09/15/18 06:50 Labs: Abnormal Lab Results - Last 24 Hours (Table) 09/14/18 09/15/18 09/15/18 Range/Units 19:42 06:50 06:50 WBC 1.1 L* (3.8-10.6) k/uL RBC 2.91 L (3.80-5.40) m/uL Hgb 9.7 L (11.4-16.0) gm/dL Hct 30.5 L (34.0-46.0) % MCV 104.8 H (80.0-100.0) fL Plt Count 45 L (150-450) k/uL Chloride 114 H (98-107) mmol/L BUN 5 L (7-17) mg/dL Creatinine 0.50 L (0.52-1.04) mg/dL POC Glucose (mg/dL) 114 H (75-99) mg/dL Calcium 8.1 L (8.4-10.2) mg/dL Total Bilirubin 1.4 H (0.2-1.3) mg/dL Alkaline Phosphatase 166 H (38-126) U/L Total Protein 4.1 L (6.3-8.2) g/dL Albumin 2.2 L (3.5-5.0) g/dL Microbiology - Last 24 Hours (Table) 09/11/18 13:20 Blood Culture - Preliminary Blood No Growth after 72 hours Assessment and Plan Plan: C diff colitis -Continue with vancomycin by mouth and metronidazole IV as per infectious disease. C/w Questran -Neutropenic precautions -Oncology following -Continue with pain control with [place] and morphine when necessary -Will c/w Clear liquid diet for now Pancytopenia w/ severe neutropenia, chemotherapy induced -C/w G-CSF -Holding Xarelto Abnormal LFTs, improved -Likely secondary to colitis -Monitor for now Hypothyroidism -C/w home dose Synthroid Factor V Leiden -Holding Xarelto for now Hypokalemia, Resolved DVT//GI prophylaxis -IPCDs Discussed with: Patient Anticipated discharge date: September 16, [address]: Home A total of 35 minutes was spent on the care of this complex patient more than 50% of the time was spent in counseling and care coordination.
[2018-09-15 17:15] LABS: Glucose,Whole Blood 83 mg/dL (75-99)
[2018-09-15 20:01] LABS: Glucose,Whole Blood 76 mg/dL (75-99)
[2018-09-15] MEDS: GABAPENTIN 300 MG CAP PO SCH (21:22)
[2018-09-15] MEDS: ATORVASTATIN 40 MG TAB PO SCH (21:22)
[2018-09-15] MEDS: SERTRALINE 100 MG TAB PO SCH (21:22)
[2018-09-16] MEDS: LEVOTHYROXINE 137 MCG TAB PO SCH (06:00)
[2018-09-16] MEDS: CHERRY FLAVOR 60 ML BOTTLE PO PRN ×3 (06:01→23:33)
[2018-09-16] MEDS: VANCOMYCIN ORAL SOLUTION 250 MG/5 ML BOTTLE PO SCH ×4 (06:01→23:33)
[2018-09-16 06:06] LABS: Glucose,Whole Blood 78 mg/dL (75-99)
[2018-09-16 06:53] LABS: Glucose,Whole Blood 84 mg/dL (75-99)
[2018-09-16] MEDS: INSULIN ASPART (NovoLOG) 100 UNIT/ML VIAL SQ SCH ×4 (07:29→20:28)
[2018-09-16] MEDS: metroNIDAZOLE-NS PMX 500 MG in SALINE 1 100ML.BAG IVPB SCH ×3 (07:58→23:33)
[2018-09-16] MEDS: SODIUM CHLORIDE 0.9% 1,000 ML IV SCH (07:58)
[2018-09-16] MEDS: CHOLESTYRAMINE (WITH SUGAR) 4 GM PACKET PO SCH ×2 (08:01→20:28)
[2018-09-16 08:05] LABS: HCT 33.5 % (34.0-46.0); HGB 10.9 gm/dL (11.4-16.0); Hypochromasia Slight; MCH 34.1 pg (25.0-35.0); MCHC 32.5 g/dL (31.0-37.0); MCV 105.1 fL (80.0-100.0); Macrocytosis Moderate; Mean Platelet Volume 8.4; RBC 3.18 m/uL (3.80-5.40); RDW 14.7 % (11.5-15.5); WBC 1.9 k/uL (3.8-10.6)
[2018-09-16 08:21] LABS: Platelet Count 47 k/uL (150-450)
[2018-09-16 08:24] LABS: ALT 49 U/L (9-52); AST 33 U/L (14-36); Albumin 2.4 g/dL (3.5-5.0); Alkaline Phosphatase 172 U/L (38-126); Anion Gap 4 mmol/L; Blood Urea Nitrogen 4 mg/dL (7-17); Carbon Dioxide 25 mmol/L (22-30); Chloride 111 mmol/L (98-107); Glucose 81 mg/dL (74-99); Magnesium 1.4 mg/dL (1.6-2.3); Potassium 3.3 mmol/L (3.5-5.1); Sodium 140 mmol/L (137-145); Total Bilirubin 1.5 mg/dL (0.2-1.3); Total Protein 4.4 g/dL (6.3-8.2)
--- NOTE | 2018-09-16 08:50 | P.PN ---
Subjective Progress Note Date: 09/16/18 Patient is a 57-year-old female with a PMH of factor V Leiden, and intra- abdominal follicular lymphoma with metastasis and multiple admissions for febrile neutropenia who presented to the ED for concerns of neutropenic fever. The patient also had endorsed abdominal pain and diarrhea, gradually worsening at home over the past few days. The patient underwent an extensive evaluation in the ED with WBC count 1.0, platelets 60, AST 153, ALT 89, alk phos 224, with an unremarkable abdominal pelvis CT. The patient was subsequently admitted to the medicine service for further management of neutropenic fever with suspected colitis. The patient was initially started on vancomycin and cefepime therapy. C. diff screen was positive and the patient was placed on contact precautions and also started on metronidazole. Infectious disease and oncology were consulted. The patient was switched to Vancomycin PO and continued on Flagyl IV. The patient was seen and examined at the bedside on 09/16/2018. The patient's reports no additional abdominal pain and her diarrhea has improved now to 2-3 BM/day. She is otherwise denying any additional complaints. Denying fever, chills, chest pain, SOB, vomiting or nausea. Objective - Vital Signs Vital signs: Vital Signs Temp 98.2 F 09/16/18 05:00 Pulse 66 09/16/18 05:00 Resp 16 09/16/18 05:00 BP 134/69 09/16/18 05:00 Pulse Ox 97 09/16/18 05:00 Intake & Output 09/15/18 09/16/18 09/16/18 18:59 06:59 18:59 Intake Total 950 Balance 950 Weight 116.619 kg Intake: Intake, IV Titration 800 Amount Sodium Chloride 0.9% 1, 700 000 ml @ 100 mls/hr IV . Q10H [facility] Rx#:[id number] metroNIDAZOLE-NS PMX 500 100 mg In Saline 1 100ml.bag @ 100 mls/hr IVPB Q8HR [facility] Rx#:[id number] Oral 150 Other: Voiding Method Toilet Toilet # Voids 2 2 # Bowel Movements 2 - Exam General: Non-toxic, in no acute distress, appears stated age, obese HEENT: NC/AT, anicteric sclerae, moist conjunctiva, no lid-lag, PERRLA Cardiovascular: S1/S2 wnl, no murmurs, rubs, or gallops Lungs: Clear to auscultation, normal respiratory effort, no accessory muscle use Abdominal: Soft, nontender, non-distended, no guarding, rebound, or rigidity Skin: Warm, dry Extremities: No edema or contractures Psychiatric: Alert and oriented to person, place and time, appropriate affect Neuro: CN II-XII grossly intact, Strength 5/5 in all 4 extremities, Speech intact, Sensation to light touch grossly intact throughout - Labs CBC & Chem 7: 09/16/18 07:39 09/16/18 07:39 Labs: Abnormal Lab Results - Last 24 Hours (Table) 09/16/18 09/16/18 Range/Units 07:39 07:39 WBC 1.9 L (3.8-10.6) k/uL RBC 3.18 L (3.80-5.40) m/uL Hgb 10.9 L (11.4-16.0) gm/dL Hct 33.5 L (34.0-46.0) % MCV 105.1 H (80.0-100.0) fL Plt Count 47 L (150-450) k/uL Potassium 3.3 L (3.5-5.1) mmol/L Chloride 111 H (98-107) mmol/L BUN 4 L (7-17) mg/dL Creatinine 0.50 L (0.52-1.04) mg/dL Calcium 8.0 L (8.4-10.2) mg/dL Magnesium 1.4 L (1.6-2.3) mg/dL Total Bilirubin 1.5 H (0.2-1.3) mg/dL Alkaline Phosphatase 172 H (38-126) U/L Total Protein 4.4 L (6.3-8.2) g/dL Albumin 2.4 L (3.5-5.0) g/dL Microbiology - Last 24 Hours (Table) 09/11/18 13:20 Blood Culture - Preliminary Blood No Growth after 96 hours Assessment and Plan Plan: C diff colitis -Continue with vancomycin by mouth and metronidazole IV as per infectious disease. C/w Questran -Neutropenic precautions -Oncology following -Continue with pain control with [place] and morphine when necessary -Diet advanced to full-liquid. If continues to tolerate, may be discharged to home Pancytopenia w/ severe neutropenia, chemotherapy induced, improved, WBC 1.9 this am -C/w G-CSF -Holding Xarelto Abnormal LFTs, improved -Likely secondary to colitis -Monitor for now Hypothyroidism -C/w home dose Synthroid Factor V Leiden -Holding Xarelto for now Hypokalemia -Replace and monitor DVT//GI prophylaxis -IPCDs Discussed with: Patient Anticipated discharge date: September 17, [address]: Home A total of 35 minutes was spent on the care of this complex patient more than 50% of the time was spent in counseling and care coordination.
[2018-09-16] MEDS: POTASSIUM CHLORIDE ER 20 MEQ TAB.ER PO SCH ×2 (10:39→12:11)
[2018-09-16] MEDS: MAGNESIUM SULFATE-D5W PMX 1 GM in DEXTROSE/WATER 1 100ML.BAG IVPB SCH ×3 (10:43→13:14)
[2018-09-16] MEDS: FILGRASTIM-SNDZ 480 MCG/0.8 ML SYRINGE SQ SCH (10:43)
--- NOTE | 2018-09-16 11:19 | P.PN ---
Subjective Progress Note Date: 09/16/18 Principal diagnosis: Abdominal Pain, UTI, Pancytopenia Abdomen pain improving. Diarrhea has improved, C-diff Positive receiving PO Abx. Magnesium is mildly decreased today as well as potassium and supp have been ordered. Objective - Vital Signs Vital signs: Vital Signs Temp 98.2 F 09/16/18 05:00 Pulse 66 09/16/18 05:00 Resp 16 09/16/18 05:00 BP 134/69 09/16/18 05:00 Pulse Ox 97 09/16/18 05:00 Intake & Output 09/15/18 09/16/18 09/16/18 18:59 06:59 18:59 Intake Total 950 Balance 950 Weight 116.619 kg Intake: Intake, IV Titration 800 Amount Sodium Chloride 0.9% 1, 700 000 ml @ 100 mls/hr IV . Q10H BETTE Rx#:[id number] metroNIDAZOLE-NS PMX 500 100 mg In Saline 1 100ml.bag @ 100 mls/hr IVPB Q8HR BETTE Rx#:[id number] Oral 150 Other: Voiding Method Toilet Toilet # Voids 2 2 # Bowel Movements 2 - Exam - Constitutional General appearance: cooperative, morbidly obese, no acute distress - EENT Eyes: anicteric sclerae, EOMI ENT: hearing grossly normal, normal oropharynx - Neck Neck: no lymphadenopathy - Respiratory Respiratory: bilateral: CTA - Cardiovascular Rhythm: regular Heart sounds: normal: S1, S2 Abnormal Heart Sounds: no systolic murmur, no diastolic murmur, no rub, no S3 Gallop, no S4 Gallop, no click, no other leg Peripheral Edema: bilateral: None - Gastrointestinal General gastrointestinal: no absent bowel sounds, no decreased bowel sounds, distended, no hepatomegaly, no hyperactive bowel sounds, normal bowel sounds, no organomegaly, no rigid, no scaphoid, soft, no splenomegaly, tenderness, no umbilical hernia, no ventral hernia Localized gastrointestinal: tender: LUQ - Integumentary Integumentary: normal - Neurologic Neurologic: CNII-XII intact - Musculoskeletal Musculoskeletal: strength equal bilaterally - Psychiatric Psychiatric: A&O x's 3, appropriate affect, intact judgment & insight - Labs CBC & Chem 7: 09/16/18 07:39 09/16/18 07:39 Labs: Abnormal Lab Results - Last 24 Hours (Table) 09/16/18 09/16/18 Range/Units 07:39 07:39 WBC 1.9 L (3.8-10.6) k/uL RBC 3.18 L (3.80-5.40) m/uL Hgb 10.9 L (11.4-16.0) gm/dL Hct 33.5 L (34.0-46.0) % MCV 105.1 H (80.0-100.0) fL Plt Count 47 L (150-450) k/uL Potassium 3.3 L (3.5-5.1) mmol/L Chloride 111 H (98-107) mmol/L BUN 4 L (7-17) mg/dL Creatinine 0.50 L (0.52-1.04) mg/dL Calcium 8.0 L (8.4-10.2) mg/dL Magnesium 1.4 L (1.6-2.3) mg/dL Total Bilirubin 1.5 H (0.2-1.3) mg/dL Alkaline Phosphatase 172 H (38-126) U/L Total Protein 4.4 L (6.3-8.2) g/dL Albumin 2.4 L (3.5-5.0) g/dL Microbiology - Last 24 Hours (Table) 09/11/18 13:20 Blood Culture - Preliminary Blood No Growth after 96 hours Assessment and Plan Plan: Assessment and Plan: Fever - No fever within 24-48 hours - Secondary to acute UTI and C-Diff C. difficile colitis: - Patient is being treated accordingly through Infectious Disease - Diarrhea has improved - Agree with Questran - PO Vanco, IV Flagyl Antineoplastic chemotherapy induced pancytopenia: - Patient has progressive decline in her counts when she is suffering from an acute illness. - WBC = 1.9, Hgb = 10.9, Platlets = 47K today: which are within safe range without addition intervention required. - Transfusions with Hgb less than 7, Platlets less than 10 - Continue on G-CSF - No aspirin, NSAIDs or Anticoagulation. NHL (non-Hodgkin's lymphoma) - No evidence to suggest disease progression at this time. Continue on observation - Last treated greated than 3 months ago UTI: Urinary Tract Infection: - Patient does have a urine culture positive for gram-negative bacilli, Infectious Disease is following. - Patient is on antibiotics Factor V Leidan - - Xarelto currenty on Hold Physician Attest: I have completed the full history and physical and developed the above impriession and plan, agree with dictation, dictated as a scribe.
[2018-09-16 11:38] LABS: Glucose,Whole Blood 157 mg/dL (75-99)
--- NOTE | 2018-09-16 11:53 | P.PN ---
Progress Note - Text Progress Note Date: 09/15/18 DATE OF SERVICE: 09/15/2018 REASON FOR FOLLOWUP: C difficile colitis. INTERVAL HISTORY: The patient is afebrile. The patient is breathing comfortably. The patient currently denies having any abdominal pain. Patient's diarrhea has decreased to only 1 BMs today and they are forming up. No blood or mucus in the stool. No chest pain, shortness of breath or cough. PHYSICAL EXAMINATION: Blood pressure is 140/75 with a pulse of 70, temperature 97, she is 97% on room air. General description is a middle-aged female, lying in bed in no distress. RESPIRATORY SYSTEM: Unlabored breathing, clear to auscultation anteriorly. HEART: S1, S2. Regular rate and rhythm. ABDOMEN: Soft, no tenderness. LABS: Reviewed white count is up to 1.1 DIAGNOSTIC IMPRESSION AND PLAN: Patient admitted to the hospital with sepsis, source of acute C difficile colitis. The patient is currently covered with oral vancomycin to continue. The patient currently with no abdominal tenderness and wants her diet to be increased , we will advance her diet as tolerated
[2018-09-16] MEDS: HYDROcodone/APAP 10-325MG 1 EACH TAB PO PRN (16:07)
[2018-09-16 17:29] LABS: Glucose,Whole Blood 126 mg/dL (75-99)
[2018-09-16 20:00] LABS: Glucose,Whole Blood 132 mg/dL (75-99)
[2018-09-16] MEDS: GABAPENTIN 300 MG CAP PO SCH (20:27)
[2018-09-16] MEDS: ATORVASTATIN 40 MG TAB PO SCH (20:27)
[2018-09-16] MEDS: SERTRALINE 100 MG TAB PO SCH (20:28)
--- NOTE | 2018-09-17 02:08 | PN ---
PROGRESS NOTE DATE OF SERVICE: 09/16/2018. REASON FOR FOLLOWUP VISIT: C difficile colitis. INTERVAL HISTORY: The patient is currently afebrile. She is breathing comfortably. Patient denies significant abdominal pain. The patient diarrhea has decreased. Did have only 1 bowel movement which has been forming up. No blood or mucus in the stool. PHYSICAL EXAMINATION: Blood pressure is 146/73 with a pulse of 57, temperature 98.1. She is 92% on room air. General description is a middle aged female lying in bed in no distress. Respiratory system: Unlabored breathing. Clear to auscultation anteriorly. Heart S1, S2. Regular rate and rhythm. Abdomen soft. No tenderness. LABS: Hemoglobin is 10.9, white count up to 1.9. DIAGNOSTIC IMPRESSION AND PLAN: 1. Patient with acute C difficile colitis for which the patient is currently on vancomycin and Questran. Did show overall clinical improvement. 2. Positive urine culture with Proteus, more likely colonization as the patient did not have significant urinary symptoms hence we will hold on any systemic antibiotic therapy for the same. MMODL / IJN: [id number] /
[2018-09-17] MEDS: VANCOMYCIN ORAL SOLUTION 250 MG/5 ML BOTTLE PO SCH ×2 (06:05→12:25)
[2018-09-17] MEDS: LEVOTHYROXINE 137 MCG TAB PO SCH (06:05)
[2018-09-17] MEDS: CHERRY FLAVOR 60 ML BOTTLE PO PRN ×2 (06:05→12:25)
[2018-09-17 06:57] LABS: Glucose,Whole Blood 100 mg/dL (75-99)
[2018-09-17] MEDS: INSULIN ASPART (NovoLOG) 100 UNIT/ML VIAL SQ SCH ×2 (07:36→12:29)
[2018-09-17] MEDS: metroNIDAZOLE-NS PMX 500 MG in SALINE 1 100ML.BAG IVPB SCH (08:12)
[2018-09-17 08:19] LABS: HCT 32.5 % (34.0-46.0); HGB 10.6 gm/dL (11.4-16.0); Hypochromasia Slight; MCH 34.8 pg (25.0-35.0); MCHC 32.6 g/dL (31.0-37.0); MCV 106.7 fL (80.0-100.0); Macrocytosis Moderate; Mean Platelet Volume 9.1; RBC 3.05 m/uL (3.80-5.40); WBC 2.7 k/uL (3.8-10.6)
[2018-09-17 08:26] LABS: Platelet Count 44 k/uL (150-450)
[2018-09-17 08:35] LABS: ALT 48 U/L (9-52); AST 31 U/L (14-36); Albumin 2.4 g/dL (3.5-5.0); Alkaline Phosphatase 172 U/L (38-126); Anion Gap 3 mmol/L; Blood Urea Nitrogen 3 mg/dL (7-17); Calcium 8.1 mg/dL (8.4-10.2); Carbon Dioxide 27 mmol/L (22-30); Chloride 112 mmol/L (98-107); Glucose 106 mg/dL (74-99); Magnesium 1.7 mg/dL (1.6-2.3); Potassium 3.7 mmol/L (3.5-5.1); Sodium 142 mmol/L (137-145); Total Bilirubin 1.4 mg/dL (0.2-1.3); Total Protein 4.2 g/dL (6.3-8.2)
[2018-09-17] MEDS: CHOLESTYRAMINE (WITH SUGAR) 4 GM PACKET PO SCH (09:58)
[2018-09-17] MEDS: FILGRASTIM-SNDZ 480 MCG/0.8 ML SYRINGE SQ SCH (09:58)
[2018-09-17 11:21] LABS: Glucose,Whole Blood 139 mg/dL (75-99)
[2018-09-17 11:47] VITALS: BP 162/87; PULSE 71; RESP 17; TEMP 97.3
[2018-09-17] MEDS: HYDROcodone/APAP 10-325MG 1 EACH TAB PO PRN (12:21)
--- NOTE | 2018-09-17 14:25 | PN ---
PROGRESS NOTE DATE OF SERVICE: 09/17/2018 REASON FOR FOLLOWUP: C. diff colitis. INTERVAL HISTORY: The patient is currently afebrile. The patient is breathing comfortably. No chest pain. No vomiting, cough. No abdominal pain. Did mention he did have one stool last night, no other change in her clinical condition. PHYSICAL EXAMINATION: Blood pressure 162/97 with a pulse of 71, temperature of 98.3, she is 97% on room air. General description is a middle-aged female, lying in bed in no distress. RESPIRATORY SYSTEM: Unlabored breathing, clear to auscultation anteriorly. HEART: S1, S2. Regular rate and rhythm. ABDOMEN: Soft, no tenderness. LABS: Hemoglobin is 10.4, white count of 2.7, BUN of 30, creatinine 0.54. DIAGNOSTIC IMPRESSION AND PLAN: 1. Patient with Clostridium difficile colitis, clinical response to oral vancomycin. Continue oral vancomycin 250 p.o. q.6 hours for 10 more days along with Questran 4 mg q12 to be taken as needed and not at the same time as oral vancomycin or other medication as listed to increase the probiotic and yogurt intake and follow up in the office in 1 week. 2. Positive urine culture, more likely colonization or contamination, no need for treatment for the same. MMODL / IJN: [id number] /
--- NOTE | 2018-09-17 14:50 | P.PN ---
Subjective Progress Note Date: 09/17/18 Principal diagnosis: Abdominal Pain, UTI, Pancytopenia Abdomen pain improving. Counts recovering, spoke with Primary team, ok for discharge from our standpoint Objective - Vital Signs Vital signs: Vital Signs Temp 97.3 F L 09/17/18 11:46 Pulse 71 09/17/18 11:46 Resp 17 09/17/18 11:46 BP 162/87 09/17/18 11:46 Pulse Ox 97 09/17/18 11:46 Intake & Output 09/16/18 09/17/18 09/17/18 18:59 06:59 18:59 Intake Total 340 Balance 340 Intake: Intake, IV Titration 100 Amount metroNIDAZOLE-NS PMX 500 100 mg In Saline 1 100ml.bag @ 100 mls/hr IVPB Q8HR BETTE Rx#:[id number] Oral 240 Other: Voiding Method Toilet Toilet # Voids 2 1 - Exam - Constitutional General appearance: cooperative, morbidly obese, no acute distress - EENT Eyes: anicteric sclerae, EOMI ENT: hearing grossly normal, normal oropharynx - Neck Neck: no lymphadenopathy - Respiratory Respiratory: bilateral: CTA - Cardiovascular Rhythm: regular Heart sounds: normal: S1, S2 Abnormal Heart Sounds: no systolic murmur, no diastolic murmur, no rub, no S3 Gallop, no S4 Gallop, no click, no other leg Peripheral Edema: bilateral: None - Gastrointestinal General gastrointestinal: no absent bowel sounds, no decreased bowel sounds, distended, no hepatomegaly, no hyperactive bowel sounds, normal bowel sounds, no organomegaly, no rigid, no scaphoid, soft, no splenomegaly, tenderness, no umbilical hernia, no ventral hernia Localized gastrointestinal: tender: LUQ - Integumentary Integumentary: normal - Neurologic Neurologic: CNII-XII intact - Musculoskeletal Musculoskeletal: strength equal bilaterally - Psychiatric Psychiatric: A&O x's 3, appropriate affect, intact judgment & insight - Labs CBC & Chem 7: 09/17/18 07:59 09/17/18 07:59 Labs: Abnormal Lab Results - Last 24 Hours (Table) 09/16/18 09/16/18 09/17/18 Range/Units 17:12 19:57 06:56 WBC (3.8-10.6) k/uL RBC (3.80-5.40) m/uL Hgb (11.4-16.0) gm/dL Hct (34.0-46.0) % MCV (80.0-100.0) fL Plt Count (150-450) k/uL Chloride (98-107) mmol/L BUN (7-17) mg/dL Glucose (74-99) mg/dL POC Glucose (mg/dL) 126 H 132 H 100 H (75-99) mg/dL Calcium (8.4-10.2) mg/dL Total Bilirubin (0.2-1.3) mg/dL Alkaline Phosphatase (38-126) U/L Total Protein (6.3-8.2) g/dL Albumin (3.5-5.0) g/dL 09/17/18 09/17/18 09/17/18 Range/Units 07:59 07:59 11:20 WBC 2.7 L (3.8-10.6) k/uL RBC 3.05 L (3.80-5.40) m/uL Hgb 10.6 L (11.4-16.0) gm/dL Hct 32.5 L (34.0-46.0) % MCV 106.7 H (80.0-100.0) fL Plt Count 44 L (150-450) k/uL Chloride 112 H (98-107) mmol/L BUN 3 L (7-17) mg/dL Glucose 106 H (74-99) mg/dL POC Glucose (mg/dL) 139 H (75-99) mg/dL Calcium 8.1 L (8.4-10.2) mg/dL Total Bilirubin 1.4 H (0.2-1.3) mg/dL Alkaline Phosphatase 172 H (38-126) U/L Total Protein 4.2 L (6.3-8.2) g/dL Albumin 2.4 L (3.5-5.0) g/dL Microbiology - Last 24 Hours (Table) 09/11/18 13:20 Blood Culture - Preliminary Blood No Growth after 120 hours Assessment and Plan Plan: Assessment and Plan: Fever - No fever within 24-48 hours - Secondary to acute UTI and C-Diff C. difficile colitis: - Patient is being treated accordingly through Infectious Disease - Diarrhea has improved - Agree with Questran - PO Vanco, IV Flagyl Antineoplastic chemotherapy induced pancytopenia: - Patient has progressive decline in her counts when she is suffering from an acute illness. - WBC = 1.9, Hgb = 10.9, Platlets = 47K today: which are within safe range without addition intervention required. - Transfusions with Hgb less than 7, Platlets less than 10 - Continue on G-CSF - No aspirin, NSAIDs or Anticoagulation. NHL (non-Hodgkin's lymphoma) - No evidence to suggest disease progression at this time. Continue on observation - Last treated greated than 3 months ago UTI: Urinary Tract Infection: - Patient does have a urine culture positive for gram-negative bacilli, Infectious Disease is following. - Patient is on antibiotics Factor V Leidan - - Xarelto currenty on Hold PLan: - Ok for discharge from our standpoint - Follow-up for CBC check in office and follow-up this week - Will resume Anticoagulation once platlet count is above 50K Physician Attest: I have completed the full history and physical and developed the above impriession and plan, agree with dictation, dictated as a scribe.
--- NOTE | 2018-09-17 15:03 | P.DS ---
Providers Date of admission: 09/11/18 16:47 Expected date of discharge: 09/17/18 Attending physician: Mohinder Abraham MD Consults: 09/11/18 16:47 Consult Physician Routine Consulting Provider: Gael Alvarez Consult Reason/Comments: non hodgkins patient, abdominal pain Do you want consulting provider notified?: Already Contacted 09/11/18 18:53 Consult Physician Urgent Consulting Provider: Mariann Edmonds Consult Reason/Comments: Neutropenic fever, suspected colitis Do you want consulting provider notified?: Yes Primary care physician: [place] [facility] Course: Patient is a 57-year-old female with a PMH of factor V Leiden, and intra- abdominal follicular lymphoma with metastasis and multiple admissions for febrile neutropenia who presented to the ED for concerns of neutropenic fever. The patient also had endorsed abdominal pain and diarrhea, gradually worsening at home over the past few days. The patient underwent an extensive evaluation in the ED with WBC count 1.0, platelets 60, AST 153, ALT 89, alk phos 224, with an unremarkable abdominal pelvis CT. The patient was subsequently admitted to the medicine service for further management of neutropenic fever with suspected colitis. The patient was initially started on vancomycin and cefepime therapy. C. diff screen was positive and the patient was placed on contact precautions and also started on metronidazole. Infectious disease and oncology were consulted. The patient was switched to Vancomycin PO and continued on Flagyl IV. The patient had continued diarrhea and thereby her diet was very graually advanced and was tolerated well. The patient's leukopenia gradually improved to 2.7. Discussed with Dr Alvarez with Hematology/Oncology who recommended that the patient is cleared for discharge to home. He recommended to continue to hold the Xarelto and that she can follow-up with him in the clinic and if at that time, the platelets are > 50, she may be resumed on Xarelto. He recommended to start her on aspirin 81 mg in the interim. Further discussed the case with Infectious Disease who recommended an additional 10 day course of oral Vancomycin 250 mg po q6h. Physical Examination General: Non-toxic, in no acute distress, appears stated age, obese HEENT: NC/AT, anicteric sclerae, moist conjunctiva, no lid-lag, PERRLA Cardiovascular: S1/S2 wnl, no murmurs, rubs, or gallops Lungs: Clear to auscultation, normal respiratory effort, no accessory muscle use Abdominal: Soft, non-tender, non-distended, no guarding, rebound, or rigidity Skin: Warm, dry Extremities: No edema or contractures Psychiatric: Alert and oriented to person, place and time, appropriate affect Neuro: CN II-XII grossly intact, Strength 5/5 in all 4 extremities, Speech intact, Sensation to light touch grossly intact throughout Discharge diagnosis:C diff colitis; Pancytopenia w/ severe neutropenia, chemotherapy induced, improved; Elevated bilirubin; Hypothyroidism; Factor V leiden; Hypokalemia, resolved A total of 40 minutes of time were spent preparing this complex discharge summary. Patient Condition at Discharge: Stable Plan - Discharge Summary New Discharge Prescriptions: New Vancomycin Oral Solution 250 mg PO Q6HR 10 Days #200 ml Cholestyramine (with Sugar) [Questran] 4 gm PO BID #20 packet Aspirin 81 mg PO DAILY #30 chewable Continue Sertraline [Zoloft] 200 mg PO HS Atorvastatin [Lipitor] 40 mg PO HS Levothyroxine Sodium [Synthroid] 137 mcg PO DAILY Glimepiride [Amaryl] 2 mg PO BID Tolterodine ER [Detrol LA] 4 mg PO DAILY HYDROcodone/APAP 10-325MG [Arena 10-325] 1 tab PO Q6H PRN PRN Reason: Pain Omeprazole [PriLOSEC] 20 mg PO AC-BID Prochlorperazine [Compazine] 10 mg PO Q6H PRN PRN Reason: Nausea Gabapentin [Neurontin] 300 mg PO HS Lisinopril [Zestril] 20 mg PO DAILY Ondansetron [Zofran] 4 mg PO Q6H PRN PRN Reason: Nausea Loratadine [Claritin] 10 mg PO DAILY Diphenox-Atrop 2.5-0.025 mg [Lomotil] 2 tab PO QID PRN PRN Reason: Loose Stool valACYclovir HCL [Valtrex] 1,000 mg PO DAILY PRN PRN Reason: OUTBREAK Acetaminophen/Diphenhydramine [Tylenol PM 500-25mg] 1 tab PO HS PRN PRN Reason: Pain Cranberry Fruit Extract [Cranberry] 200 mg PO DAILY PRN PRN Reason: UTI Cholestyramine (with Sugar) [Cholestyramine Powder] 4 gm PO HS Discontinued Acyclovir 400 mg PO BID Rivaroxaban [Xarelto] 20 mg PO DAILY Discharge Medication List Sertraline [Zoloft] 200 mg PO HS 03/07/15 [History] Atorvastatin [Lipitor] 40 mg PO HS 02/10/16 [History] Levothyroxine Sodium [Synthroid] 137 mcg PO DAILY 08/17/16 [History] Glimepiride [Amaryl] 2 mg PO BID 12/19/16 [History] Tolterodine ER [Detrol LA] 4 mg PO DAILY 03/30/17 [History] Gabapentin [Neurontin] 300 mg PO HS 06/07/18 [History] HYDROcodone/APAP 10-325MG [Arena 10-325] 1 tab PO Q6H PRN 06/07/18 [History] Lisinopril [Zestril] 20 mg PO DAILY 06/07/18 [History] Omeprazole [PriLOSEC] 20 mg PO AC-BID 06/07/18 [History] Prochlorperazine [Compazine] 10 mg PO Q6H PRN 06/07/18 [History] Acetaminophen/Diphenhydramine [Tylenol PM 500-25mg] 1 tab PO HS PRN 09/11/18 [History] Cholestyramine (with Sugar) [Cholestyramine Powder] 4 gm PO HS 09/11/18 [History] Cranberry Fruit Extract [Cranberry] 200 mg PO DAILY PRN 09/11/18 [History] Diphenox-Atrop 2.5-0.025 mg [Lomotil] 2 tab PO QID PRN 09/11/18 [History] Loratadine [Claritin] 10 mg PO DAILY 09/11/18 [History] Ondansetron [Zofran] 4 mg PO Q6H PRN 09/11/18 [History] valACYclovir HCL [Valtrex] 1,000 mg PO DAILY PRN 09/11/18 [History] Aspirin 81 mg PO DAILY #30 chewable 09/17/18 [Rx] Cholestyramine (with Sugar) [Questran] 4 gm PO BID #20 packet 09/17/18 [Rx] Vancomycin Oral Solution 250 mg PO Q6HR 10 Days #200 ml 09/17/18 [Rx] Follow up Appointment(s)/Referral(s): Gael Alvarez MD [STAFF PHYSICIAN] - 10/17/18 2:00 pm Obdulia Jasso MD [Primary Care Provider] - 10/08/18 11:15 am Mariann Edmonds MD [STAFF PHYSICIAN] - 09/24/18 2:15 pm Patient Instructions/Handouts: Cholestyramine (By mouth), Vancomycin (By mouth), C Diff (Clostridium Difficile) Infection (DC) Discharge Disposition: HOME SELF-CARE
[2018-09-17] MEDS ORDERED: metroNIDAZOLE 500 MG TAB PO SCH (16:00)
--- NOTE | 2018-09-19 08:09 | CDI ---
Documentation Clarification Form Date: 09/19/2018 From: Brie Griffin Phone: If questions call Rosalva Zaidi @ [phone], Hours-8:30 am & 5 pm MMaximilian Moyer Admit Date: 09/11/2018 4:47:00 PM Patient Name: Nidhi Cervantes Visit Number: [id number] Discharge Date: 09/17/2018 7:00:00 PM ATTENTION: The Clinical Documentation Specialists (CDI) and [facility] Coding Staff appreciate your assistance in clarifying documentation. Please respond to the clarification below the line at the bottom and electronically sign. The CDI & [facility] Coding staff will review the response and follow-up if needed. Please note: Queries are made part of the Legal Health Record. If you have any questions, please contact the author of this message via ITS. Dr. Mohnider Abraham Conflicting documentation has been found in the medical record: Per Dr Edmonds consult-patient presenting to hospital with sepsis in a patient who did have fever with a temperature of 101 F the patient did have leukopenia meeting criteria for SIRS predominant symptom has been diarrhea and abdominal pain likely secondary to C difficile colitis, and this patient currently with no other clinical focus of infection. Sepsis only documented by Dr Edmonds. History/Risk Factors: follicular lymphoma grade II multiple sites Treatment: IV fluids, IV Vanco, IV Cefepime, IV Flagyl, switched to Vanco po, Questran 4 g Q 4HRs In your opinion, what is the most clinically appropriate diagnosis for this patient? Sepsis due to C diff Sepsis ruled out Other explanation of clinical findings Unable to determine (no explanation for clinical findings) MTDD
--- NOTE | 2018-09-30 11:41 | CDI ---
Documentation Clarification Form Date: 09/30/2018 From: Brie Griffin Phone: If questions call Rosalva Zaidi @ [phone], Hours-8:30 am & 5 pm MMaximilian Moyer Admit Date: 09/11/2018 4:47:00 PM Patient Name: Nidhi Cervantes Visit Number: [id number] Discharge Date: 09/17/2018 7:00:00 PM ATTENTION: The Clinical Documentation Specialists (CDI) and [facility] Coding Staff appreciate your assistance in clarifying documentation. Please respond to the clarification below the line at the bottom and electronically sign. The CDI & [facility] Coding staff will review the response and follow-up if needed. Please note: Queries are made part of the Legal Health Record. If you have any questions, please contact the author of this message via ITS. Dr. Mohinder Abraham Conflicting documentation has been found in the medical record: Per Dr Edmonds consult-patient presenting to hospital with sepsis in a patient who did have fever with a temperature of 101 F the patient did have leukopenia meeting criteria for SIRS predominant symptom has been diarrhea and abdominal pain likely secondary to C difficile colitis, and this patient currently with no other clinical focus of infection. Sepsis only documented by Dr Edmonds. History/Risk Factors: follicular lymphoma grade II multiple sites Treatment: IV fluids, IV Vanco, IV Cefepime, IV Flagyl, switched to Vanco po, Questran 4 g Q 4HRs In your opinion, what is the most clinically appropriate diagnosis for this patient? Sepsis due to C diff Sepsis ruled out Other explanation of clinical findings Unable to determine (no explanation for clinical findings) MTDD
== END 2018-09-17 19:00 | disposition home or self-care (01) | DRG 872 ==
LOC: EC 11:50 → 3NMEDONC 16:47
PROVIDERS: ADMIT Internal Medicine; ATTEND Internal Medicine
DX: A41.4 Sepsis due to anaerobes (principal); C82.18 Follicular lymphoma grade II, lymph nodes of multiple sites; D68.51 Activated protein C resistance; Z68.41 Body mass index [BMI] 40.0-44.9, adult; N39.0 Urinary tract infection, site not specified; E66.01 Morbid (severe) obesity due to excess calories; D70.3 Neutropenia due to infection; Z66 Do not resuscitate; R50.81 Fever presenting with conditions classified elsewhere; E87.6 Hypokalemia; I10 Essential (primary) hypertension; T45.1X5A Adverse effect of antineoplastic and immunosuppressive drugs, initial encounter; E11.9 Type 2 diabetes mellitus without complications; E78.5 Hyperlipidemia, unspecified; G47.33 Obstructive sleep apnea (adult) (pediatric); E89.0 Postprocedural hypothyroidism; Z79.84 Long term (current) use of oral hypoglycemic drugs; Z79.890 Hormone replacement therapy; Z79.01 Long term (current) use of anticoagulants; Z79.899 Other long term (current) drug therapy; Z71.3 Dietary counseling and surveillance; Z86.19 Personal history of other infectious and parasitic diseases; Z86.718 Personal history of other venous thrombosis and embolism; Z90.49 Acquired absence of other specified parts of digestive tract; Z90.710 Acquired absence of both cervix and uterus; Z98.890 Other specified postprocedural states; Z95.828 Presence of other vascular implants and grafts; Z87.440 Personal history of urinary (tract) infections; Z88.4 Allergy status to anesthetic agent; Z88.5 Allergy status to narcotic agent; Z83.3 Family history of diabetes mellitus; Z84.1 Family history of disorders of kidney and ureter; Z82.49 Family history of ischemic heart disease and other diseases of the circulatory system; Z80.9 Family history of malignant neoplasm, unspecified; Z83.2 Family history of diseases of the blood and blood-forming organs and certain disorders involving the immune mechanism
CPT/HCPCS: 36415; 71046; 74176; 74177; 80053; 81001; 83605; 83735; 85025; 85027; 87040; 87077; 87086; 87186; 87324; 96361; 96365; 96375; 99285

== ENCOUNTER → 2018-09-23 | Outpatient (CLI) | payer MEDICARE ==
--- NOTE | 2018-09-23 16:32 | US ---
EXAMINATION TYPE: US venous doppler duplex LE DATE OF EXAM: 09/23/2018 4:13 PM COMPARISON: US 2016 CLINICAL HISTORY: R22.43 Localized Swelling of both l e. Pt states bilateral leg pain and swelling/ p t states previous DVT, currently not on blood thinners SIDE PERFORMED: Bilateral TECHNIQUE: The lower extremity deep venous system is examined utilizing real time linear array sonog rajinder with graded compression, doppler sonography and color-flow sonography. VESSELS IMAGED: External Iliac Vein (EIV) Common Femoral Vein Deep Femoral Vein Greater Saphenous Vein * Femoral Vein Popliteal Vein Small Saphenous Vein * Proximal Calf Veins (* superficial vessels) There is normal flow, compressibility, vascular waveforms. Right Leg: Negative for DVT Left Leg: Negative for DVT Results called to Mireille at 's office at time of exam IMPRESSION: No evident deep venous thrombosis at or above the knees. Follow-up as indicated
== END | disposition home or self-care (01) ==
LOC: RADUSWWP 15:33
PROVIDERS: ATTEND Internal Medicine Infectious Disease
DX: R22.43 Localized swelling, mass and lump, lower limb, bilateral (principal)
CPT/HCPCS: 93970

== ENCOUNTER 2018-10-10 15:41 | Inpatient (IN) | payer MEDICARE ==
[2018-10-10] MEDS ORDERED: MORPHINE SULFATE 4 MG/ML SYRINGE IVP STA ×2 (17:06→20:24)
[2018-10-10] MEDS ORDERED: ONDANSETRON 4 MG/2 ML VIAL IVP STA (17:06)
[2018-10-10] MEDS ORDERED: SODIUM CHLORIDE 0.9% 1,000 ML IV STA ×2 (17:14→20:04)
[2018-10-10] MEDS ORDERED: ACETAMINOPHEN TAB 500 MG TAB PO STA (17:15)
--- NOTE | 2018-10-10 17:21 | ED ---
Nausea/Vomiting/Diarrhea HPI - General Source: patient Mode of arrival: wheelchair Limitations: no limitations <Monica Jo - Last Filed: 10/10/18 20:08> <Alan Juarez - Last Filed: 10/10/18 20:55> - General Chief complaint: Nausea/Vomiting/Diarrhea Stated complaint: Cdiff, Fever, CA pt Time Seen by Provider: 10/10/18 16:53 - History of Present Illness Initial comments: Patient is a 57-year-old female complaining of abdominal pain x yesterday with associated diarrhea 3 days. Patient was recently treated for C. diff at the beginning of the month. States her symptoms improved and then 3 days ago develo ped diarrhea again. States she had a fever since yesterday. Took [place] and Tylenol for the pain which did not help. Patient has recent history of non- Hodgkin's lymphoma, but states she has been in re-mission for 1-2 months. Patient admits to nausea. Patient denies vomiting, shortness of breath. (Monica Jo) - Related Data Home Medications Medication Instructions Recorded Confirmed Atorvastatin [Lipitor] 40 mg PO HS 02/10/16 10/10/18 Levothyroxine Sodium [Synthroid] 137 mcg PO DAILY 08/17/16 10/10/18 Glimepiride [Amaryl] 2 mg PO BID 12/19/16 10/10/18 Tolterodine ER [Detrol LA] 4 mg PO DAILY 03/30/17 10/10/18 Gabapentin [Neurontin] 300 mg PO HS 06/07/18 10/10/18 HYDROcodone/APAP 10-325MG [[place] 1 tab PO Q6H PRN 06/07/18 10/10/18 10-325] Lisinopril [Zestril] 20 mg PO DAILY 06/07/18 10/10/18 Omeprazole [PriLOSEC] 20 mg PO AC-BID 06/07/18 10/10/18 Prochlorperazine [Compazine] 10 mg PO Q6H PRN 06/07/18 10/10/18 Cholestyramine (with Sugar) 4 gm PO HS 09/11/18 10/10/18 [Cholestyramine Powder] Diphenox-Atrop 2.5-0.025 mg 2 tab PO QID PRN 09/11/18 10/10/18 [Lomotil] Ondansetron [Zofran] 4 mg PO Q6H PRN 09/11/18 10/10/18 valACYclovir HCL [Valtrex] 1,000 mg PO DAILY PRN 09/11/18 10/10/18 Sertraline [Zoloft] 100 mg PO BID 10/10/18 10/10/18 Previous Rx's Medication Instructions Recorded Aspirin 81 mg PO DAILY #30 chewable 09/17/18 Cholestyramine (with Sugar) 4 gm PO BID #20 packet 09/17/18 [Questran] Allergies Allergy/AdvReac Type Severity Reaction Status Date / Time Anesthetics - Amide Type AdvReac Nausea & Verified 10/10/18 16:02 Vomiting & Diarrhea Anesthetics - Jonna Type- AdvReac Nausea & Verified 10/10/18 16:02 Parabens Vomiting & Diarrhea oxycodone [From OxyContin] AdvReac Nausea & Verified 10/10/18 16:02 Vomiting Review of Systems ROS Other: All systems not noted in ROS Statement are negative. <Monica Jo - Last Filed: 10/10/18 20:08> ROS Other: All systems not noted in ROS Statement are negative. <Alan Juarez - Last Filed: 10/10/18 20:55> ROS Statement: Those systems with pertinent positive or pertinent negative responses have been documented in the HPI. 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 History of Any Multi-Drug Resistant Organisms: C-DIFF Date of last positivie culture/infection: 09/11/18 MDRO Source:: stool Past Surgical History: Adenoidectomy, Appendectomy, Back Surgery, Cholecystectomy, Hysterectomy, Orthopedic Surgery, Tonsillectomy Additional Past Surgical History / Comment(s): Recent abdominal mass biopsy x 2, BMA, EGD/colonoscopy [facility], bilateral carpal tunnel release, thyroidectomy (one tiny piece unable to remove), ORIF rt ankle, stents in LLE/vascular stent, cervical surgery C4,C6, thyroidectomy Past Anesthesia/Blood Transfusion Reactions: Postoperative Nausea & Vomiting (PONV) Additional Past Anesthesia/Blood Transfusion Reaction / Comment(s): blood transfusion(December 2015) "pt stated an hour after transfusion became very nauseated and had quit a bit of vomiting" Past Psychological History: No Psychological Hx Reported Smoking Status: Never smoker Past Alcohol Use History: None Reported Past Drug Use History: None Reported - Past Family History Mother Family Medical History: Diabetes Mellitus, Renal Disease Additional Family Medical History / Comment(s): Mother of kidney failure at the age of 69yrs. Father Family Medical History: Diabetes Mellitus Additional Family Medical History / Comment(s): Father of a "sugar coma" when he was 72 yrs old. Brother(s) Family Medical History: Cancer Sister(s) Family Medical History: Myocardial Infarction (ND) Additional Family Medical History / Comment(s): Patient has 3 sisters and 2 of them are diabetic. Son(s) Family Medical History: No Reported History (Patient has 4 sons no major medical problems) Additional Family Medical History / Comment(s): Patient has 4 sons with no major medical problems. Daughter(s) Family Medical History: Deep Vein Thrombosis (DVT) Additional Family Medical History / Comment(s): Patient has a daughter with DVT. <Monica Jo - Last Filed: 10/10/18 20:08> General Exam Limitations: no limitations <Monica Jo - Last Filed: 10/10/18 20:08> - General Exam Comments Initial Comments: General: [Well-developed well-nourished no acute distress, but appears to be in pain] HEENT: [Normocephalic/atraumatic, PERLL, pharynx erythema, swallowing well, EAC no erythema, no exudates, TM clear, no cervical lymph nodes] Neck: [Supple, nontender, trachea midline] Chest/Lungs: [Normal respirations, no signs of respiratory distress clear to auscultation bilaterally no wheezes, rales, rhonchi] Cardiac: [Regular rate and rhythm, normal S1-S2, no murmurs rubs or gallops ] Abdomen/GI: [Soft, generalized abdominal tenderness, bowel sounds equal or quadrant x4, no guarding, no rebound no CVA tenderness] : [Deferred] Musculoskeletal: [Nontender, full range of motion, no edema, strength equal bilaterally] Skin: [Warmth, no rashes or lesions, no cyanosis or diaphoresis] Neurologic: [AAO x 3, CN 2-12 intact, ] Psychiatric: [Mood and affect normal, judgment normal] (Monica Jo) Course <Alan Juarez - Last Filed: 10/10/18 20:55> Vital Signs 10/10/18 10/10/18 10/10/18 15:58 18:02 19:44 Temperature 101.9 F H 99.6 F Pulse Rate 91 88 97 Respiratory 18 18 18 Rate Blood Pressure 146/67 132/89 146/77 O2 Sat by Pulse 96 98 95 Oximetry - Reevaluation(s) Reevaluation #1: 10/10/18 20:04 Patient given 2 L normal saline bolus. This is based on a ideal body weight of 5 foot for female of 54.4 kg with a total of 1650 mL needed for 30 mL/kg 10/10/18 20:53 Patient does have concern for infectious colitis, probably C. diff. Patient does meet sepsis protocol. IV fluids have been ordered. Blood culture and l actic acid will be ordered. Per protocol IV antibiotics will be ordered. Further than that patient will benefit from oral Flagyl for presumptive C. diff colitis. (Alan Juarez) Medical Decision Making - Lab Data Result diagrams: 10/10/18 17:30 10/10/18 17:30 <Monica Jo - Last Filed: 10/10/18 20:08> - Lab Data Result diagrams: 10/10/18 17:30 10/10/18 17:30 <Alan Juarez - Last Filed: 10/10/18 20:55> - Medical Decision Making Patient is a 57-year-old female complaining of generalized abdominal pain x 1 day with associated diarrhea 3 days. States she was recently treated for C. diff at the beginning of the month. Her symptoms improved and then worsened 3 days ago. Patient has recent history of non-Hodgkin's lymphoma but is currently in remission. Patient states her pain is similar to her episode of C. diff. Patient was febrile on intake. CBC/ CMP appears similar to recent studies, except for potassium was 2.9. UA normal. C. diff ordered. Spoke to Dr. Juarez and we will admit the patient. (Monica Jo) Patient reevaluated by myself, Dr. Juarez. Patient is still complaining of some discomfort at this time. Abdomen is soft with mild to moderate diffuse tenderness. Patient states she does have a history of non-Hodgkin's lymphoma and told she was in remission 2 months ago. Patient states one month ago she developed diarrhea for 3 days and was diagnosed with C. diff that resolved with antibiotics. Patient states similar symptoms started again 3 days ago. Patient complains of abdominal pain nausea and diarrhea. Patient has did have fever on arrival. Patient updated on results and plan. Computed tomography scan will be added of the abdomen. Case was also discussed in detail with Dr. Gonzalez, who will admit covered for Dr. Lemus. (Alan Juarez) - Lab Data Lab Results 10/10/18 10/10/18 10/10/18 Range/Units 17:30 17:30 17:30 WBC 1.6 L (3.8-10.6) k/uL RBC 3.51 L (3.80-5.40) m/uL Hgb 11.5 (11.4-16.0) gm/dL Hct 35.5 (34.0-46.0) % MCV 101.0 H D (80.0-100.0) fL MCH 32.8 (25.0-35.0) pg MCHC 32.5 (31.0-37.0) g/dL RDW 14.4 (11.5-15.5) % Plt Count 75 L D (150-450) k/uL Neutrophils % (Manual) 51 % Band Neutrophils % 4 % Lymphocytes % (Manual) 19 % Monocytes % (Manual) 22 % Eosinophils % (Manual) 3 % Metamyelocytes % 1 % Neutrophils # (Manual) 0.80 L (1.3-7.7) k/uL Lymphocytes # (Manual) 0.30 L (1.0-4.8) k/uL Monocytes # (Manual) 0.35 (0-1.0) k/uL Eosinophils # (Manual) 0.05 (0-0.7) k/uL Metamyelocytes # (Man) 0.02 H (0) k/uL Nucleated RBCs 0 (0-0) /100 WBC Manual Slide Review Performed Macrocytosis Slight Sodium 136 L (137-145) mmol/L Potassium 2.9 L (3.5-5.1) mmol/L Chloride 105 (98-107) mmol/L Carbon Dioxide 28 (22-30) mmol/L Anion Gap 3 mmol/L BUN 10 (7-17) mg/dL Creatinine 0.65 (0.52-1.04) mg/dL Est GFR (CKD-EPI)AfAm >90 (>60 ml/min/1.73 sqM) Est GFR (CKD-EPI)NonAf >90 (>60 ml/min/1.73 sqM) Glucose 71 L (74-99) mg/dL Plasma Lactic Acid Shaka 0.7 (0.7-2.0) mmol/L Calcium 8.4 (8.4-10.2) mg/dL Total Bilirubin 2.8 H (0.2-1.3) mg/dL AST 59 H (14-36) U/L ALT 43 (9-52) U/L Alkaline Phosphatase 237 H (38-126) U/L Total Protein 5.1 L (6.3-8.2) g/dL Albumin 3.0 L (3.5-5.0) g/dL Lipase 18 L (23-300) U/L Urine Color Urine Appearance (Clear) Urine pH (5.0-8.0) Ur Specific Spencer (1.001-1.035) Urine Protein (Negative) Urine Glucose (UA) (Negative) Urine Ketones (Negative) Urine Blood (Negative) Urine Nitrite (Negative) Urine Bilirubin (Negative) Urine Urobilinogen (<2.0) mg/dL Ur Leukocyte Esterase (Negative) Urine RBC (0-5) /hpf Urine WBC (0-5) /hpf Ur Squamous Epith Cells (0-4) /hpf Urine Mucus (None) /hpf 10/10/18 Range/Units 18:00 WBC (3.8-10.6) k/uL RBC (3.80-5.40) m/uL Hgb (11.4-16.0) gm/dL Hct (34.0-46.0) % MCV (80.0-100.0) fL MCH (25.0-35.0) pg MCHC (31.0-37.0) g/dL RDW (11.5-15.5) % Plt Count (150-450) k/uL Neutrophils % (Manual) % Band Neutrophils % % Lymphocytes % (Manual) % Monocytes % (Manual) % Eosinophils % (Manual) % Metamyelocytes % % Neutrophils # (Manual) (1.3-7.7) k/uL Lymphocytes # (Manual) (1.0-4.8) k/uL Monocytes # (Manual) (0-1.0) k/uL Eosinophils # (Manual) (0-0.7) k/uL Metamyelocytes # (Man) (0) k/uL Nucleated RBCs (0-0) /100 WBC Manual Slide Review Macrocytosis Sodium (137-145) mmol/L Potassium (3.5-5.1) mmol/L Chloride (98-107) mmol/L Carbon Dioxide (22-30) mmol/L Anion Gap mmol/L BUN (7-17) mg/dL Creatinine (0.52-1.04) mg/dL Est GFR (CKD-EPI)AfAm (>60 ml/min/1.73 sqM) Est GFR (CKD-EPI)NonAf (>60 ml/min/1.73 sqM) Glucose (74-99) mg/dL Plasma Lactic Acid Shaka (0.7-2.0) mmol/L Calcium (8.4-10.2) mg/dL Total Bilirubin (0.2-1.3) mg/dL AST (14-36) U/L ALT (9-52) U/L Alkaline Phosphatase (38-126) U/L Total Protein (6.3-8.2) g/dL Albumin (3.5-5.0) g/dL Lipase (23-300) U/L Urine Color Yellow Urine Appearance Clear (Clear) Urine pH 6.5 (5.0-8.0) Ur Specific Spencer 1.015 (1.001-1.035) Urine Protein Negative (Negative) Urine Glucose (UA) Negative (Negative) Urine Ketones Trace H (Negative) Urine Blood Negative (Negative) Urine Nitrite Negative (Negative) Urine Bilirubin Negative (Negative) Urine Urobilinogen <2.0 (<2.0) mg/dL Ur Leukocyte Esterase Trace H (Negative) Urine RBC <1 (0-5) /hpf Urine WBC 4 (0-5) /hpf Ur Squamous Epith Cells 2 (0-4) /hpf Urine Mucus Rare H (None) /hpf Disposition <Monica Jo - Last Filed: 10/10/18 20:08> Is patient prescribed a controlled substance at d/c from ED?: No Decision Time: 20:54 <Alan Juarez - Last Filed: 10/10/18 20:55> Clinical Impression: Acute colitis Disposition: ADMITTED IP TO THIS HOSP Condition: Serious Referrals: Obdulia Jasso MD [Primary Care Provider] - 1-2 days
[2018-10-10 17:57] LABS: ALT 43 U/L (9-52); AST 59 U/L (14-36); African American GFR (CKD) >90 (>60 ml/min/1.73 sqM); Alkaline Phosphatase 237 U/L (38-126); Anion Gap 3 mmol/L; Blood Urea Nitrogen 10 mg/dL (7-17); Calcium 8.4 mg/dL (8.4-10.2); Carbon Dioxide 28 mmol/L (22-30); Chloride 105 mmol/L (98-107); Glucose 71 mg/dL (74-99); Lipase 18 U/L (23-300); Potassium 2.9 mmol/L (3.5-5.1); Sodium 136 mmol/L (137-145); Total Bilirubin 2.8 mg/dL (0.2-1.3); Total Protein 5.1 g/dL (6.3-8.2)
[2018-10-10 18:06] LABS: HCT 35.5 % (34.0-46.0); HGB 11.5 gm/dL (11.4-16.0); MCH 32.8 pg (25.0-35.0); MCHC 32.5 g/dL (31.0-37.0); Macrocytosis Slight; Mean Platelet Volume 8.4; RBC 3.51 m/uL (3.80-5.40); RDW 14.4 % (11.5-15.5); WBC 1.6 k/uL (3.8-10.6)
[2018-10-10 18:15] LABS: Platelet Count 75 k/uL (150-450)
[2018-10-10 18:21] LABS: Band Neutrophils % 4 %; Eosinophils # (M) 0.05 k/uL (0-0.7); Metamyelocytes # (M) 0.02 k/uL (0); Metamyelocytes % 1 %; Monocytes # (M) 0.35 k/uL (0-1.0); Neutrophils % (M) 51 %; Nucleated Red Blood Cells 0 /100 WBC (0-0); Total Cells Counted 100
[2018-10-10 18:44] LABS: Appearance,Urine Clear (Clear); Bilirubin,Urine Negative (Negative); Blood,Urine Negative (Negative); Color,Urine Yellow; Glucose,Urine (UA) Negative (Negative); Ketones,Urine Trace (Negative); Leukocyte Esterase,Urine Trace (Negative); Mucus,Urine Rare /hpf; Nitrite,Urine Negative (Negative); PH, Urine 6.5 (5.0-8.0); Protein,Urine Negative (Negative); RBC,Urine <1 /hpf (0-5); Specific Gravity,Urine 1.015 (1.001-1.035); Squamous Epithelial Cell,Urine 2 /hpf (0-4); Urobilinogen,Urine <2.0 mg/dL (<2.0)
[2018-10-10] MEDS ORDERED: MORPHINE SULFATE 4 MG/ML SYRINGE IV STA (20:23)
[2018-10-10] MEDS ORDERED: POTASSIUM CHLORIDE ER 20 MEQ TAB.ER PO STA (20:50)
[2018-10-10] MEDS ORDERED: POTASSIUM CHLORIDE 2 MEQ/ML 20 ML VIAL IVPB STA (20:51)
[2018-10-10] MEDS ORDERED: POTASSIUM CHLORIDE 20 MEQ in WATER FOR INJECTION 1 100ML.BAG IVPB STA (20:54)
[2018-10-10] MEDS ORDERED: PIPERACILLIN-TAZOBACTAM 3.375 GM in SODIUM CHLORIDE 0.9% 100 ML IVPB STA (20:55)
[2018-10-10] MEDS ORDERED: NALOXONE 0.4 MG/ML 1 ML VIAL IV PRN (20:56)
[2018-10-10] MEDS ORDERED: IOPAMIDOL-300 CONTRAST 30 ML VIAL (ORAL USE) PO PRN (20:58)
[2018-10-10] MEDS ORDERED: metroNIDAZOLE 250 MG TABLET PO ONE (21:00)
[2018-10-10] MEDS ORDERED: PANTOPRAZOLE 40 MG/10 ML VIAL IV SCH (21:00)
[2018-10-10] MEDS: ONDANSETRON 4 MG/2 ML VIAL IVP PRN (21:35)
--- NOTE | 2018-10-10 23:07 | CT ---
EXAM: CT Abdomen and Pelvis With Intravenous Contrast CLINICAL HISTORY: ITS.REASON CT Reason: Pain, full prep TECHNIQUE: Axial computed tomography images of the abdomen and pelvis with intravenous contrast. CTDI is 42.97 mGy and DLP is 1819.6 mGy-cm. This CT exam was performed using one or more of the following dose reduction techniques: automated exposure control, adjustment of the mA and/or kV according to patient size, and/or use of iterative reconstruction technique. COMPARISON: CT abdomen/pelvis on 09/11/2018 FINDINGS: Liver: Nodular contour of the liver may represent cirrhosis. No focal lesion. Spleen: Stable splenomegaly. No focal lesion. Gallbladder: Prior cholecystectomy. Similar probable postcholecystectomy ductal ectasia. Pancreas: Normal. No acute inflammation. No mass. Adrenal glands: Normal. No mass. Kidneys: Left renal cyst. Mild nonspecific bilateral perinephric fat stranding. No obstructing stone. No hydronephrosis or stone. No mass. Bowel: Mild prominence of the wall of the sigmoid colon and descending colon may be secondary to under distention versus colitis. Under distention of the rectum versus proctitis. Fluid in the colon is suggestive of diarrheal state. Possible enteritis. Appendix is not visualized, but no CT evidence of acute appendicitis. Urinary bladder: Nonspecific mild prominence of the bladder wall. Reproductive organs: Prior hysterectomy. Muscles: No mass. Subcutaneous tissues: Injection granulomas in the gluteal soft tissues. Peritoneal space: Stable rim calcified structure and soft tissue density in the central mesentery. Lymph nodes: Normal. No lymphadenopathy. Vessels: Stent in the left common iliac vein and external iliac veins. No aneurysm or dissection. Bones: Osteopenia. Degenerative changes of the spine. Stable chronic superior endplate compression deformity of the L5 vertebral body. No acute fracture or bony lesion. Lung bases: Mild bibasilar atelectasis. Mild cardiomegaly. Other: Small hiatal hernia. IMPRESSION: 1. Mild prominence of the wall of the sigmoid colon and descending colon may be secondary to under distention versus colitis. Under distention of the rectum versus proctitis. 2. Fluid in the colon is suggestive of diarrheal state. Possible enteritis. 3. Stable rim calcified structure and soft tissue density in the central mesentery. 4. Nonspecific mild prominence of the bladder wall. Please correlate with urinalysis if concerned for cystitis.
[2018-10-11] MEDS ORDERED: CEFEPIME 2 GM in SODIUM CHLORIDE 0.9% 100 ML IVPB SCH ×2
[2018-10-11] MEDS: CHERRY FLAVOR 60 ML BOTTLE PO SCH ×5 (00:25→23:27)
[2018-10-11] MEDS: VANCOMYCIN ORAL SOLUTION 250 MG/5 ML BOTTLE PO SCH ×5 (00:25→23:27)
--- NOTE | 2018-10-11 00:35 | P.HPIM ---
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 Patient was just recently discharged early in September after treatment of initial episode of C. diff colitis with vancomycin. She reports that her symptoms are similar to the initial attack. She is feeling nauseous but able to keep water down. Denies any vomiting. She is feeling generalized weakness having fevers and chills. Abdominal pain is diffuse but mainly in the lower left quadrant 10 out of 10 in severity colicky in nature radiating to the rest of the abdomen. In the ED patient was found febrile with moderate neutropenia given broad-spe ctrum antibiotics until confirmation of C. diff colitis came back positive patient was switched to oral Vanco and the rest of the antibiotics were stopped cultures were obtained. Patient was also found hypokalemic was replaced in the ED. Patient reports history of at least 2 attacks of DVTs and history of factor V Leiden however she reports that xarelto was stopped due to thrombocytopenia and she was started on low-dose aspirin. 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 Otherwise patient denies any cough chest pain or any urinary symptoms. Review of Systems Pertinent positives as noted in HPI. 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 History of Any Multi-Drug Resistant Organisms: C-DIFF Date of last positivie culture/infection: 09/11/18 MDRO Source:: stool Past Surgical History: Adenoidectomy, Appendectomy, Back Surgery, Cholecystectomy, Hysterectomy, Orthopedic Surgery, Tonsillectomy Additional Past Surgical History / Comment(s): Recent abdominal mass biopsy x 2, BMA, EGD/colonoscopy at [facility], bilateral carpal tunnel release, thyroidectomy (one tiny piece unable to remove), ORIF rt ankle, stents in LLE/vascular stent, cervical surgery C4,C6, thyroidectomy Past Anesthesia/Blood Transfusion Reactions: Postoperative Nausea & Vomiting (PONV) Additional Past Anesthesia/Blood Transfusion Reaction / Comment(s): blood transfusion(December 2015) "pt stated an hour after transfusion became very nauseated and had quit a bit of vomiting" Past Psychological History: No Psychological Hx Reported Smoking Status: Never smoker Past Alcohol Use History: None Reported Past Drug Use History: None Reported - Past Family History Mother Family Medical History: Diabetes Mellitus, Renal Disease Additional Family Medical History / Comment(s): Mother of kidney failure at the age of 69yrs. Father Family Medical History: Diabetes Mellitus Additional Family Medical History / Comment(s): Father of a "sugar coma" when he was 72 yrs old. Brother(s) Family Medical History: Cancer Sister(s) Family Medical History: Myocardial Infarction ([place]) Additional Family Medical History / Comment(s): Patient has 3 sisters and 2 of them are diabetic. Son(s) Family Medical History: No Reported History (Patient has 4 sons no major medical problems) Additional Family Medical History / Comment(s): Patient has 4 sons with no major medical problems. Daughter(s) Family Medical History: Deep Vein Thrombosis (DVT) Additional Family Medical History / Comment(s): Patient has a daughter with DVT. Medications and Allergies Home Medications Medication Instructions Recorded Confirmed Type Atorvastatin [Lipitor] 40 mg PO HS 02/10/16 10/10/18 History Levothyroxine Sodium [Synthroid] 137 mcg PO DAILY 08/17/16 10/10/18 History Glimepiride [Amaryl] 2 mg PO BID 12/19/16 10/10/18 History Tolterodine ER [Detrol LA] 4 mg PO DAILY 03/30/17 10/10/18 History Gabapentin [Neurontin] 300 mg PO HS 06/07/18 10/10/18 History HYDROcodone/APAP 10-325MG [[place] 1 tab PO Q6H PRN 06/07/18 10/10/18 History 10-325] Lisinopril [Zestril] 20 mg PO DAILY 06/07/18 10/10/18 History Omeprazole [PriLOSEC] 20 mg PO AC-BID 06/07/18 10/10/18 History Prochlorperazine [Compazine] 10 mg PO Q6H PRN 06/07/18 10/10/18 History Cholestyramine (with Sugar) 4 gm PO HS 09/11/18 10/10/18 History [Cholestyramine Powder] Diphenox-Atrop 2.5-0.025 mg 2 tab PO QID PRN 09/11/18 10/10/18 History [Lomotil] Ondansetron [Zofran] 4 mg PO Q6H PRN 09/11/18 10/10/18 History valACYclovir HCL [Valtrex] 1,000 mg PO DAILY PRN 09/11/18 10/10/18 History Aspirin 81 mg PO DAILY #30 chewable 09/17/18 10/10/18 Rx Cholestyramine (with Sugar) 4 gm PO BID #20 packet 09/17/18 10/10/18 Rx [Questran] Sertraline [Zoloft] 100 mg PO BID 10/10/18 10/10/18 History Allergies Allergy/AdvReac Type Severity Reaction Status Date / Time Anesthetics - Amide Type AdvReac Nausea & Verified 10/10/18 16:02 Vomiting & Diarrhea Anesthetics - Jonna Type- AdvReac Nausea & Verified 10/10/18 16:02 Parabens Vomiting & Diarrhea oxycodone [From OxyContin] AdvReac Nausea & Verified 10/10/18 16:02 Vomiting Physical Exam Vitals: Vital Signs Temp Pulse Resp BP Pulse Ox 10/10/18 21:50 16 148/70 10/10/18 19:44 99.6 F 97 18 146/77 95 10/10/18 18:02 88 18 132/89 98 10/10/18 15:58 101.9 F H 91 18 146/67 96 Intake and Output 10/10/18 10/10/18 10/10/18 06:59 14:59 22:59 Other: Weight 111.584 kg Constitutional: Patient is in pain due to abdominal discomfort, otherwise conversant and cooperative with exam and interview, morbid obesity Eyes: Anicteric sclerae, moist conjunctiva, no lid-lag Pupils equal round reactive to light ENMT: NC/AT Oropharynx clear, no erythema, exudates Neck: Supple, FROM, no masses, or JVD No carotid bruits No thyromegaly Lungs: Clear to auscultation Clear to percussion Normal respiratory effort, no accessory muscle use Cardiovascular: Heart regular in rate and rhythm, No murmurs, gallops, or rubs No peripheral edema Abdominal: Soft, diffuse tenderness to palpation mainly in left lower quadrant, no rebound tenderness nor rigidity no guarding Abdomen moving with respiration Normoactive bowel sounds No hepatomegaly, No splenomegaly No palpable mass No abdominal wall hernia noted Skin: Normal temperature, tone, texture, turgor No induration No subcutaneous nodules No rash, lesions No ulcers Extremities: No digital cyanosis No clubbing Pedal pulses intact and symmetrical Radial pulses intact and symmetrical No calf tenderness Psychiatric: Alert and oriented to person, place and time Appropriate affect fair judgment Neuro Muscles Strength 4/5 in all 4 extremities Sensation to light touch grossly present throughout Cranial nerves II-XII grossly intact No focal sensory deficits Lymphatics: no palpable cervical or supraclavicular , or inguinal lymph nodes Results CBC & Chem 7: 10/10/18 17:30 10/10/18 17:30 Labs: Abnormal Lab Results - Last 24 Hours (Table) 10/10/18 10/10/18 10/10/18 Range/Units 17:30 17:30 18:00 WBC 1.6 L (3.8-10.6) k/uL RBC 3.51 L (3.80-5.40) m/uL MCV 101.0 H D (80.0-100.0) fL Plt Count 75 L D (150-450) k/uL Neutrophils # (Manual) 0.80 L (1.3-7.7) k/uL Lymphocytes # (Manual) 0.30 L (1.0-4.8) k/uL Metamyelocytes # (Man) 0.02 H (0) k/uL Sodium 136 L (137-145) mmol/L Potassium 2.9 L (3.5-5.1) mmol/L Glucose 71 L (74-99) mg/dL Total Bilirubin 2.8 H (0.2-1.3) mg/dL AST 59 H (14-36) U/L Alkaline Phosphatase 237 H (38-126) U/L Total Protein 5.1 L (6.3-8.2) g/dL Albumin 3.0 L (3.5-5.0) g/dL Lipase 18 L (23-300) U/L Urine Ketones Trace H (Negative) Ur Leukocyte Esterase Trace H (Negative) Urine Mucus Rare H (None) /hpf Assessment and Plan Assessment: 57-year-old female with history of non-Hodgkin lymphoma and drug-induced hematologic toxicity from chemotherapy, factor V Leiden with history of DVT. Admitted as an inpatient with anticipated length of stay more than 48 hours due to sepsis secondary to C. diff colitis. And neutropenic fever. Patient initially had moderate neutropenia with fever for which she was started on broad-spectrum antibiotics however suspicion was high for recurrent attack of C. diff colitis. Once C. diff was confirmed patient was started on oral vancomycin (patient had oral vancomycin for her initial attack few weeks ago) and other antibiotics were discontinued. Plan: Abscess secondary to Recurrent attack of C. diff colitis Moderate neutropenia Hypokalemia Bicytopenia secondary to prolonged hematologic toxicity from chemotherapy last dose received in June 2018 due to progression of her non-Hodgkin lymphoma back in March 2018 Plan Follow-up cultures Discontinue cefepime Start patient on oral vancomycin as she received vancomycin during her recent hospitalization for initial attack of C. diff colitis Consider prolonged course of vancomycin with tapered regimen Replace potassium, check magnesium follow-up levels closely Patient denies evidence of bleeding, IV fluid hydration Chronic conditions Progression of her intra-abdominal grade 2 follicular lymphoma as confirmed back in March 2018 status post 3 cycles of chemotherapy held in June 2018 due to prolonged hematologic toxicity Hypertension Hyperlipidemia History of DVT, and factor V Leiden, patient reports that Xarelto been held due to low platelet count, continue with low-dose aspirin Recurrent C. diff Obstructive sleep apnea noncompliant with treatment heparin subcu 3 times a day for DVT prophylaxis due to patient's history of recurrent venous thromboembolic some and factor V Leiden, Preformed a thorough record review from recent hospitalization patient was hospitalized and discharged early in September this year for C. diff colitis initial attack was treated with oral Vanco Surrogate decision-maker: Patient daughter CODE STATUS: Full code Discussed with: Patient, ER, RN Anticipated discharge: 48-[address]: Home A total of 60 minutes was spent on the care of this complex patient more than 50% of the time was spent in counseling and care coordination.
[2018-10-11] MEDS: SODIUM CHLORIDE 0.9% 1,000 ML IV SCH ×4 (01:46→23:22)
[2018-10-11] MEDS: MORPHINE SULFATE 4 MG/ML SYRINGE IVP PRN ×3 (05:54→19:46)
[2018-10-11] MEDS: LEVOTHYROXINE 137 MCG TAB PO SCH (05:55)
[2018-10-11 07:06] LABS: Glucose,Whole Blood 88 mg/dL (75-99)
[2018-10-11] MEDS: INSULIN ASPART (NovoLOG) 100 UNIT/ML VIAL SQ SCH ×4 (07:13→21:04)
[2018-10-11] MEDS: LISINOPRIL 20 MG TAB PO SCH (07:47)
[2018-10-11] MEDS: ASPIRIN 81 MG PO SCH (07:48)
[2018-10-11] MEDS: POTASSIUM CHLORIDE ER 20 MEQ TAB.ER PO SCH ×2 (07:48→23:22)
[2018-10-11] MEDS: PANTOPRAZOLE 40 MG TABLET PO SCH ×2 (07:48→17:17)
[2018-10-11] MEDS: HEPARIN SODIUM,PORCINE 5,000 UNIT/ML 1 ML VIAL SQ SCH ×3 (07:48→23:27)
[2018-10-11] MEDS: SERTRALINE 100 MG TAB PO SCH ×2 (07:51→23:22)
[2018-10-11 08:52] LABS: HCT 30.1 % (34.0-46.0); HGB 10.1 gm/dL (11.4-16.0); MCH 34.1 pg (25.0-35.0); MCHC 33.6 g/dL (31.0-37.0); MCV 101.4 fL (80.0-100.0); Macrocytosis Slight; Mean Platelet Volume 8.4; RBC 2.97 m/uL (3.80-5.40)
[2018-10-11] MEDS ORDERED: metroNIDAZOLE 500 MG TAB PO SCH (09:00)
[2018-10-11 09:07] LABS: Platelet Count 64 k/uL (150-450); WBC 1.3 k/uL (3.8-10.6)
[2018-10-11 09:08] LABS: ALT 45 U/L (9-52); AST 60 U/L (14-36); African American GFR (CKD) >90 (>60 ml/min/1.73 sqM); Albumin 2.6 g/dL (3.5-5.0); Alkaline Phosphatase 214 U/L (38-126); Anion Gap 4 mmol/L; Blood Urea Nitrogen 12 mg/dL (7-17); Calcium 8.1 mg/dL (8.4-10.2); Carbon Dioxide 25 mmol/L (22-30); Chloride 109 mmol/L (98-107); Glucose 88 mg/dL (74-99); Magnesium 1.8 mg/dL (1.6-2.3); Potassium 3.4 mmol/L (3.5-5.1); Sodium 138 mmol/L (137-145); Total Bilirubin 4.7 mg/dL (0.2-1.3); Total Protein 4.7 g/dL (6.3-8.2)
[2018-10-11 10:52] LABS: Neutrophils % (M) 38 %
[2018-10-11 10:53] LABS: Band Neutrophils % 3 %; Eosinophils # (M) 0.04 k/uL (0-0.7); Lymphocytes # (M) 0.18 k/uL (1.0-4.8); Monocytes # (M) 0.55 k/uL (0-1.0); Nucleated Red Blood Cells 0 /100 WBC (0-0); Total Cells Counted 100
[2018-10-11 10:54] LABS: Poikilocytosis (M) Present
[2018-10-11 11:11] LABS: Glucose,Whole Blood 109 mg/dL (75-99)
--- NOTE | 2018-10-11 14:53 | P.CONS ---
History of Present Illness - Reason for Consult Consult date: 10/11/18 Hx: NHL Requesting physician: Alan Juarez - Chief Complaint Diarrhea - History of Present Illness Nidhi was initially evaluated at [facility] by us in October 2016, then found to have a large abdominal & Retroperitoneal mass > then transfered to a tertiary care facity. She was admitted to [facility], eventually had core biopsy of mesenteric mass on 12/27/16 revealing Grade II Follicular Lymphoma. Mediport was placed while at [facility], had PET Scan as out-patient > has extensive involvement with Lymphoma above & below diaphragm, as well as, a very suspicious lesion in the liver> Stage IV-B. She Underwent treatment with R-CHOP starting in January 2017, followed by maintenance Rituxan. In March 2018 she showed evidence of Progressive disease and was treated with Rituxan and bendeka, again followed by mainentance Rituxan in which her last was in August 2018. Last PET scan showed stable disease near CR. On 10/10/18 she presented to hospital with complaints of abdominal pain and diarrhea. She stated the diarrhea worsened over the past few days and was very odorous and frequent. Denied bloody stool. She was recently treated for c-diff colitis which was earlier this month, she was hospitalized and treated with PO vancomycin. She stated she feels it is similiar that time, she is nauseated and has adversions to eating. Abdominal cramping is intermittent and severe when it comes, although improves as quickly as it starts. She has known history of factor V Leiden with greater 2 known thrombolic events (DVTs), was previously maintained on Xarelto but with her recently persistent thrombocytopenia she was taken off DOAC and started on low dose aspirin. Since admission electrolytes and symptom management has been initiated. Review of Systems A 14 point review of systems assessed and completed and all negative except HPI 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 History of Any Multi-Drug Resistant Organisms: C-DIFF Year Discovered:: 09/11/18 MDRO Source:: stool Past Surgical History: Adenoidectomy, Appendectomy, Back Surgery, C holecystectomy, Hysterectomy, Orthopedic Surgery, Tonsillectomy Additional Past Surgical History / Comment(s): Recent abdominal mass biopsy x 2, BMA, EGD/colonoscopy at [facility], bilateral carpal tunnel release, thyroidectomy (one tiny piece unable to remove), ORIF rt ankle, stents in LLE/vascular stent, cervical surgery C4,C6, thyroidectomy Past Anesthesia/Blood Transfusion Reactions: Postoperative Nausea & Vomiting (PONV) Additional Past Anesthesia/Blood Transfusion Reaction / Comm: blood transfusion(December 2015) "pt stated an hour after transfusion became very nauseated and had quit a bit of vomiting" Past Psychological History: No Psychological Hx Reported Smoking Status: Never smoker Past Alcohol Use History: None Reported Past Drug Use History: None Reported - Past Family History Mother Family Medical History: Diabetes Mellitus, Renal Disease Additional Family Medical History / Comment(s): Mother of kidney failure at the age of 69yrs. Father Family Medical History: Diabetes Mellitus Additional Family Medical History / Comment(s): Father of a "sugar coma" when he was 72 yrs old. Brother(s) Family Medical History: Cancer Sister(s) Family Medical History: Myocardial Infarction (PR) Additional Family Medical History / Comment(s): Patient has 3 sisters and 2 of them are diabetic. Son(s) Family Medical History: No Reported History (Patient has 4 sons no major medical problems) Additional Family Medical History / Comment(s): Patient has 4 sons with no major medical problems. Daughter(s) Family Medical History: Deep Vein Thrombosis (DVT) Additional Family Medical History / Comment(s): Patient has a daughter with DVT. Medications and Allergies Home Medications Medication Instructions Recorded Confirmed Type Atorvastatin [Lipitor] 40 mg PO HS 02/10/16 10/10/18 History Levothyroxine Sodium [Synthroid] 137 mcg PO DAILY 08/17/16 10/10/18 History Glimepiride [Amaryl] 2 mg PO BID 12/19/16 10/10/18 History Tolterodine ER [Detrol LA] 4 mg PO DAILY 03/30/17 10/10/18 History Gabapentin [Neurontin] 300 mg PO HS 06/07/18 10/10/18 History HYDROcodone/APAP 10-325MG [[place] 1 tab PO Q6H PRN 06/07/18 10/10/18 History 10-325] Lisinopril [Zestril] 20 mg PO DAILY 06/07/18 10/10/18 History Omeprazole [PriLOSEC] 20 mg PO AC-BID 06/07/18 10/10/18 History Prochlorperazine [Compazine] 10 mg PO Q6H PRN 06/07/18 10/10/18 History Cholestyramine (with Sugar) 4 gm PO HS 09/11/18 10/10/18 History [Cholestyramine Powder] Diphenox-Atrop 2.5-0.025 mg 2 tab PO QID PRN 09/11/18 10/10/18 History [Lomotil] Ondansetron [Zofran] 4 mg PO Q6H PRN 09/11/18 10/10/18 History valACYclovir HCL [Valtrex] 1,000 mg PO DAILY PRN 09/11/18 10/10/18 History Aspirin 81 mg PO DAILY #30 chewable 09/17/18 10/10/18 Rx Cholestyramine (with Sugar) 4 gm PO BID #20 packet 09/17/18 10/10/18 Rx [Questran] Sertraline [Zoloft] 100 mg PO BID 10/10/18 10/10/18 History Allergies Allergy/AdvReac Type Severity Reaction Status Date / Time Anesthetics - Amide Type AdvReac Nausea & Verified 10/10/18 16:02 Vomiting & Diarrhea Anesthetics - Jonna Type- AdvReac Nausea & Verified 10/10/18 16:02 Parabens Vomiting & Diarrhea oxycodone [From OxyContin] AdvReac Nausea & Verified 10/10/18 16:02 Vomiting Physical Exam Vitals: Vital Signs Temp Pulse Pulse Resp BP BP Pulse Ox 10/11/18 11:09 98.1 F 73 18 122/57 95 10/11/18 08:00 18 10/11/18 05:21 98.3 F 89 18 142/88 95 10/11/18 00:00 98.5 F 91 18 122/62 96 10/10/18 22:00 16 10/10/18 21:50 16 148/70 10/10/18 19:44 99.6 F 97 18 146/77 95 10/10/18 18:02 88 18 132/89 98 10/10/18 15:58 101.9 F H 91 18 146/67 96 Intake and Output 10/10/18 10/11/18 10/11/18 22:59 06:59 14:59 Intake Total 2590 Balance 2590 Intake: Amount of Fluid Infused ( 2000 ml) Oral 590 Other: Voiding Method Toilet Toilet # Voids 2 2 # Bowel Movements 2 6 Weight 111.584 kg Gen: Alert, NAD Head: NCNT Neck: Supple No Palpable cervical, supraclavical or axillary adenopathy Lungs: CTA Bilateral, No increased effort Abdomen: Tender, Mildly bloated, Soft Heart: Tachy 106, reg Extremities: Generalized edema, non-pitting, mild Neuro: No sensory or motor deficits Psych: Calm and Cooperative Results CBC & Chem 7: 10/11/18 08:16 10/11/18 08:16 Labs: Abnormal Lab Results - Last 24 Hours (Table) 10/10/18 10/10/18 10/10/18 Range/Units 17:30 17:30 18:00 WBC 1.6 L (3.8-10.6) k/uL RBC 3.51 L (3.80-5.40) m/uL Hgb (11.4-16.0) gm/dL Hct (34.0-46.0) % MCV 101.0 H D (80.0-100.0) fL Plt Count 75 L D (150-450) k/uL Neutrophils # (Manual) 0.80 L (1.3-7.7) k/uL Lymphocytes # (Manual) 0.30 L (1.0-4.8) k/uL Metamyelocytes # (Man) 0.02 H (0) k/uL Sodium 136 L (137-145) mmol/L Potassium 2.9 L (3.5-5.1) mmol/L Chloride (98-107) mmol/L Glucose 71 L (74-99) mg/dL POC Glucose (mg/dL) (75-99) mg/dL Calcium (8.4-10.2) mg/dL Total Bilirubin 2.8 H (0.2-1.3) mg/dL AST 59 H (14-36) U/L Alkaline Phosphatase 237 H (38-126) U/L Total Protein 5.1 L (6.3-8.2) g/dL Albumin 3.0 L (3.5-5.0) g/dL Lipase 18 L (23-300) U/L Urine Ketones Trace H (Negative) Ur Leukocyte Esterase Trace H (Negative) Urine Mucus Rare H (None) /hpf C. difficile (EIA) Intrp (Negative) 10/10/18 10/11/18 10/11/18 Range/Units 18:16 08:16 08:16 WBC 1.3 L* (3.8-10.6) k/uL RBC 2.97 L (3.80-5.40) m/uL Hgb 10.1 L (11.4-16.0) gm/dL Hct 30.1 L (34.0-46.0) % MCV 101.4 H (80.0-100.0) fL Plt Count 64 L (150-450) k/uL Neutrophils # (Manual) 0.50 L (1.3-7.7) k/uL Lymphocytes # (Manual) 0.18 L (1.0-4.8) k/uL Metamyelocytes # (Man) (0) k/uL Sodium (137-145) mmol/L Potassium 3.4 L (3.5-5.1) mmol/L Chloride 109 H (98-107) mmol/L Glucose (74-99) mg/dL POC Glucose (mg/dL) (75-99) mg/dL Calcium 8.1 L (8.4-10.2) mg/dL Total Bilirubin 4.7 H (0.2-1.3) mg/dL AST 60 H (14-36) U/L Alkaline Phosphatase 214 H (38-126) U/L Total Protein 4.7 L (6.3-8.2) g/dL Albumin 2.6 L (3.5-5.0) g/dL Lipase (23-300) U/L Urine Ketones (Negative) Ur Leukocyte Esterase (Negative) Urine Mucus (None) /hpf C. difficile (EIA) Intrp Positive A (Negative) 10/11/18 Range/Units 11:09 WBC (3.8-10.6) k/uL RBC (3.80-5.40) m/uL Hgb (11.4-16.0) gm/dL Hct (34.0-46.0) % MCV (80.0-100.0) fL Plt Count (150-450) k/uL Neutrophils # (Manual) (1.3-7.7) k/uL Lymphocytes # (Manual) (1.0-4.8) k/uL Metamyelocytes # (Man) (0) k/uL Sodium (137-145) mmol/L Potassium (3.5-5.1) mmol/L Chloride (98-107) mmol/L Glucose (74-99) mg/dL POC Glucose (mg/dL) 109 H (75-99) mg/dL Calcium (8.4-10.2) mg/dL Total Bilirubin (0.2-1.3) mg/dL AST (14-36) U/L Alkaline Phosphatase (38-126) U/L Total Protein (6.3-8.2) g/dL Albumin (3.5-5.0) g/dL Lipase (23-300) U/L Urine Ketones (Negative) Ur Leukocyte Esterase (Negative) Urine Mucus (None) /hpf C. difficile (EIA) Intrp (Negative) CT scan - abdomen: report reviewed CT scan - pelvis: report reviewed Assessment and Plan (1) C. difficile colitis Current Visit: No Status: Acute Priority: High Code(s): A04.72 - ENTEROCOLITIS D/T CLOSTRIDIUM DIFFICILE, NOT SPCF RECUR SNOMED Code(s): 263812853 (2) Lymphoma Current Visit: No Status: Acute Code(s): C85.90 - NON-HODGKIN LYMPHOMA, UNSPECIFIED, UNSPECIFIED SITE SNOMED Code(s): 543553711 (3) Pancytopenia Current Visit: No Status: Acute Priority: Medium Code(s): D61.818 - OTHER PANCYTOPENIA SNOMED Code(s): 794079906 (4) Urinary tract infection Current Visit: No Status: Acute Priority: High Code(s): N39.0 - URINARY TRACT INFECTION, SITE NOT SPECIFIED SNOMED Code(s): 88192497 (5) Factor 5 Leiden mutation, heterozygous Current Visit: No Status: Chronic Code(s): D68.51 - ACTIVATED PROTEIN C RESISTANCE SNOMED Code(s): 789023351 (6) History of DVT (deep vein thrombosis) Current Visit: No Status: Chronic Code(s): Z86.718 - PERSONAL HISTORY OF OT HER VENOUS THROMBOSIS AND EMBOLISM SNOMED Code(s): 206561647 Plan: Assessment and Recommendations: C-Diff Colitis: - Continue on Antibiotics as prescribed - ID to Follow Diarrhea: - Monitor Electrolytes and replace when needed - Add Questran - IV Hydration Abdominal Cramping: - Supportive Care Pancytopenia: Likely secondary to bone Marrow Suppression from history of Lymphoma and Treatment - Worsening with acute and/or prolonged infection/inflammation/antibiotics - Monitor CBC Daily - Transfusions hemoglobin less than 7, platlets less than 10 Hyperbilirubinemia: - Likely secondary to Diarrhea and Colitis, monitor. - CT of Abdomen reviewed, no acute findings noted on liver - On Rituxan, check Hepatitis Panel Non-Hodgkins Lymphoma - Follicular IVB: - Currently on maintenance Rituxan with stable disease Hypercoaguable State: Factor V Leiden - Full dose anticoagulation has been on hold for thrombocytopenia. - She has continued on low dose aspirin in the interim. Hx: DVTs Violeta Haider AOP
[2018-10-11 15:33] LABS: D-Dimer 1.78 mg/L FEU (<0.60); INR 1.1 (<1.2); Partial Thromboplastin Time 28.9 sec (22.0-30.0); Prothrombin Time 11.4 sec (9.0-12.0)
[2018-10-11 17:22] LABS: Glucose,Whole Blood 73 mg/dL (75-99)
--- NOTE | 2018-10-11 17:26 | P.PN ---
Subjective Progress Note Date: 10/11/18 She was seen and examined the bedside on 10/11/2018. She reports continued abdominal pain along with nausea and multiple episodes of diarrhea. She denied fever, chills, chest pain, shortness of breath. Objective - Vital Signs Vital signs: Vital Signs Temp 98.1 F 10/11/18 11:09 Pulse 73 10/11/18 11:09 Resp 18 10/11/18 15:27 BP 122/57 10/11/18 11:09 Pulse Ox 95 10/11/18 11:09 Intake & Output 10/10/18 10/11/18 10/11/18 18:59 06:59 18:59 Intake Total 2590 Balance 2590 Weight 111.584 kg Intake: Amount of Fluid Infused ( 2000 ml) Oral 590 Other: Voiding Method Toilet Toilet # Voids 2 2 # Bowel Movements 2 6 - Exam General: Non-toxic, in no acute distress, appears stated age, morbidly obese HEENT: NC/AT, anicteric sclerae, moist conjunctiva, no lid-lag, PERRLA Cardiovascular: S1/S2 wnl, no murmurs, rubs, or gallops Lungs: Clear to auscultation, normal respiratory effort, no accessory muscle use Abdominal: Soft, diffuse moderate to mild tenderness to palpation, non- distended, no guarding, rebound, or rigidity Skin: Warm, dry Extremities: No edema or contractures Psychiatric: Alert and oriented to person, place and time, appropriate affect Neuro: CN II-XII grossly intact, Strength 5/5 in all 4 extremities, Speech intact, Sensation to light touch grossly intact throughout - Labs CBC & Chem 7: 10/11/18 08:16 10/11/18 08:16 Labs: Abnormal Lab Results - Last 24 Hours (Table) 10/10/18 10/10/18 10/10/18 Range/Units 17:30 17:30 18:00 WBC 1.6 L (3.8-10.6) k/uL RBC 3.51 L (3.80-5.40) m/uL Hgb (11.4-16.0) gm/dL Hct (34.0-46.0) % MCV 101.0 H D (80.0-100.0) fL Plt Count 75 L D (150-450) k/uL Neutrophils # (Manual) 0.80 L (1.3-7.7) k/uL Lymphocytes # (Manual) 0.30 L (1.0-4.8) k/uL Metamyelocytes # (Man) 0.02 H (0) k/uL D-Dimer (<0.60) mg/L FEU Sodium 136 L (137-145) mmol/L Potassium 2.9 L (3.5-5.1) mmol/L Chloride (98-107) mmol/L Glucose 71 L (74-99) mg/dL POC Glucose (mg/dL) (75-99) mg/dL Calcium (8.4-10.2) mg/dL Total Bilirubin 2.8 H (0.2-1.3) mg/dL AST 59 H (14-36) U/L Alkaline Phosphatase 237 H (38-126) U/L Total Protein 5.1 L (6.3-8.2) g/dL Albumin 3.0 L (3.5-5.0) g/dL Lipase 18 L (23-300) U/L Urine Ketones Trace H (Negative) Ur Leukocyte Esterase Trace H (Negative) Urine Mucus Rare H (None) /hpf C. difficile (EIA) Intrp (Negative) 10/10/18 10/11/18 10/11/18 Range/Units 18:16 08:16 08:16 WBC 1.3 L* (3.8-10.6) k/uL RBC 2.97 L (3.80-5.40) m/uL Hgb 10.1 L (11.4-16.0) gm/dL Hct 30.1 L (34.0-46.0) % MCV 101.4 H (80.0-100.0) fL Plt Count 64 L (150-450) k/uL Neutrophils # (Manual) 0.50 L (1.3-7.7) k/uL Lymphocytes # (Manual) 0.18 L (1.0-4.8) k/uL Metamyelocytes # (Man) (0) k/uL D-Dimer (<0.60) mg/L FEU Sodium (137-145) mmol/L Potassium 3.4 L (3.5-5.1) mmol/L Chloride 109 H (98-107) mmol/L Glucose (74-99) mg/dL POC Glucose (mg/dL) (75-99) mg/dL Calcium 8.1 L (8.4-10.2) mg/dL Total Bilirubin 4.7 H (0.2-1.3) mg/dL AST 60 H (14-36) U/L Alkaline Phosphatase 214 H (38-126) U/L Total Protein 4.7 L (6.3-8.2) g/dL Albumin 2.6 L (3.5-5.0) g/dL Lipase (23-300) U/L Urine Ketones (Negative) Ur Leukocyte Esterase (Negative) Urine Mucus (None) /hpf C. difficile (EIA) Intrp Positive A (Negative) 10/11/18 10/11/18 Range/Units 11:09 14:59 WBC (3.8-10.6) k/uL RBC (3.80-5.40) m/uL Hgb (11.4-16.0) gm/dL Hct (34.0-46.0) % MCV (80.0-100.0) fL Plt Count (150-450) k/uL Neutrophils # (Manual) (1.3-7.7) k/uL Lymphocytes # (Manual) (1.0-4.8) k/uL Metamyelocytes # (Man) (0) k/uL D-Dimer 1.78 H (<0.60) mg/L FEU Sodium (137-145) mmol/L Potassium (3.5-5.1) mmol/L Chloride (98-107) mmol/L Glucose (74-99) mg/dL POC Glucose (mg/dL) 109 H (75-99) mg/dL Calcium (8.4-10.2) mg/dL Total Bilirubin (0.2-1.3) mg/dL AST (14-36) U/L Alkaline Phosphatase (38-126) U/L Total Protein (6.3-8.2) g/dL Albumin (3.5-5.0) g/dL Lipase (23-300) U/L Urine Ketones (Negative) Ur Leukocyte Esterase (Negative) Urine Mucus (None) /hpf C. difficile (EIA) Intrp (Negative) Assessment and Plan Plan: Neutropenic C. diff colitis -Oncology recommendations appreciated -Continue with oral vancomycin -Supportive care for abdominal pain -Monitor electrolytes and replace accordingly -Continue with IV hydration -Neutropenic precautions Bicytopenia -Hematology recs appreciated -Monitor for now Elevated d-dimer -Will obtain CT angiogram to rule out PE Abnormal LFTs -Likely secondary to colitis with diarrhea -Monitor for now Factor V Leiden -Was previously on Xarelto which was held due to persistent thrombocytopenia -Continue with low-dose aspirin
[2018-10-11 19:58] LABS: Hepatitis A Antibody IgM Non-Reactive (Non-Reactive); Hepatitis B Core IgM Non-Reactive (Non-Reactive)
[2018-10-11 20:30] LABS: Glucose,Whole Blood 90 mg/dL (75-99)
[2018-10-11] MEDS: ATORVASTATIN 40 MG TAB PO SCH (23:22)
[2018-10-11] MEDS: GABAPENTIN 300 MG CAP PO SCH (23:22)
--- NOTE | 2018-10-12 00:09 | CT ---
EXAM: CT Angiography Chest With Intravenous Contrast CLINICAL HISTORY: ITS.REASON CT Reason: Elevated D-dimer, r/o PE TECHNIQUE: Axial computed tomographic angiography images of the chest with intravenous contrast using pulmonary embolism protocol. CTDI is 82.9 mGy and DLP is 543.0 mGy-cm. This CT exam was performed using one or more of the following dose reduction techniques: automated exposure control, adjustment of the mA and/or kV according to patient size, and/or use of iterative reconstruction technique. MIP reconstructed images were created and reviewed. COMPARISON: CT chest 08/17/2016 FINDINGS: CTA technically limited due to suboptimal pulmonary arterial opacification and motion artifact. Pulmonary arteries: No definite evidence of pulmonary embolism. Aorta: No thoracic aortic aneurysm or evidence of dissection. Lungs: No evidence of acute pulmonary parenchymal disease or consolidation. Mild scattered subsegmental atelectasis or scarring. Pleural space: No evidence of pleural effusion or pneumothorax. Heart: Cardiomegaly. No significant pericardial effusion. Bones/joints: Moderate degenerative changes throughout the thoracic spine. Fixation plate projects to lower cervical spine. Lymph nodes: No evidence of lymphadenopathy. Gallbladder and bile ducts: Evidence of biliary dilatation, unchanged as compared to prior CT abdomen of 10/10/2018. Kidneys and ureters: Probable left upper pole renal cyst partially imaged. Tubes, lines and devices: Left-sided central venous catheter extends to region of right atrium just below level of cavoatrial junction. IMPRESSION: No definite evidence of pulmonary embolism. No thoracic aortic aneurysm or evidence of dissection. Cardiomegaly. Evidence of biliary dilatation, unchanged as compared to prior CT abdomen of 10/10/2018.
[2018-10-12] MEDS: VANCOMYCIN ORAL SOLUTION 250 MG/5 ML BOTTLE PO SCH ×3 (05:49→17:29)
[2018-10-12] MEDS: CHERRY FLAVOR 60 ML BOTTLE PO SCH ×3 (05:49→17:29)
[2018-10-12] MEDS: SODIUM CHLORIDE 0.9% 1,000 ML IV SCH ×3 (05:49→21:35)
[2018-10-12] MEDS: LEVOTHYROXINE 137 MCG TAB PO SCH (05:53)
[2018-10-12] MEDS: MORPHINE SULFATE 4 MG/ML SYRINGE IVP PRN ×3 (05:53→21:34)
[2018-10-12 07:01] LABS: Glucose,Whole Blood 95 mg/dL (75-99)
[2018-10-12] MEDS: SERTRALINE 100 MG TAB PO SCH ×2 (09:19→21:25)
[2018-10-12] MEDS: HEPARIN SODIUM,PORCINE 5,000 UNIT/ML 1 ML VIAL SQ SCH ×2 (09:20→16:05)
[2018-10-12] MEDS: POTASSIUM CHLORIDE ER 20 MEQ TAB.ER PO SCH ×4 (09:20→21:25)
[2018-10-12] MEDS: ASPIRIN 81 MG PO SCH (09:20)
[2018-10-12] MEDS: PANTOPRAZOLE 40 MG TABLET PO SCH ×2 (09:20→17:28)
[2018-10-12 09:50] LABS: ALT 40 U/L (9-52); AST 44 U/L (14-36); African American GFR (CKD) >90 (>60 ml/min/1.73 sqM); Albumin 2.4 g/dL (3.5-5.0); Alkaline Phosphatase 190 U/L (38-126); Anion Gap 2 mmol/L; Blood Urea Nitrogen 11 mg/dL (7-17); Carbon Dioxide 26 mmol/L (22-30); Chloride 112 mmol/L (98-107); Glucose 129 mg/dL (74-99); Potassium 3.3 mmol/L (3.5-5.1); Sodium 140 mmol/L (137-145); Total Bilirubin 1.7 mg/dL (0.2-1.3); Total Protein 4.4 g/dL (6.3-8.2)
[2018-10-12] MEDS: INSULIN ASPART (NovoLOG) 100 UNIT/ML VIAL SQ SCH ×4 (09:54→21:32)
[2018-10-12] MEDS: LISINOPRIL 20 MG TAB PO SCH (09:55)
[2018-10-12] MEDS ORDERED: Potassium Replacement Protocol 1 EACH MISC MISCELLANE PRN ×2 (10:04→10:15)
--- NOTE | 2018-10-12 10:19 | P.PN ---
Subjective Progress Note Date: 10/12/18 Principal diagnosis: C. diff Patient seen and examined. No acute events overnight. Reports 4 episodes of watery diarrhea overnight complaints. She denies any chest pain, shortness of breath or palpitations. States that her mood is depressed due to her brother passing away this weekend. Objective - Vital Signs Vital signs: Vital Signs Temp 97.7 F 10/12/18 05:17 Pulse 66 10/12/18 05:17 Resp 16 10/12/18 05:17 BP 111/56 10/12/18 05:17 Pulse Ox 97 10/12/18 05:17 Intake & Output 10/11/18 10/12/18 10/12/18 18:59 06:59 18:59 Other: Voiding Method Toilet Toilet # Voids 2 2 # Bowel Movements 6 6 - Exam General: [non toxic], [no distress], [appears at stated age] Derm: [warm], [dry] Head: [atraumatic], [normocephalic], [symmetric] Eyes: [EOMI], [no lid lag], [ecchymotic right eye] Mouth: [no lip lesion], [mucus membranes moist] Cardiovascular: [S1S2 reg], [no murmur], [positive DP pulse bilateral] Lungs: [CTA bilateral], [no rhonchi, no rales] , [no accessory muscle use] Abdominal: [soft], [generalized tenderness to deep palpation without rebound], [no guarding], [hyperactive bowel sounds] Ext: [no gross muscle atrophy], [no edema], [no contractures] Neuro: [no focal neuro deficits] Psych: [Alert], [oriented], [appropriate affect] - Labs CBC & Chem 7: 10/11/18 08:16 10/12/18 09:14 Labs: Abnormal Lab Results - Last 24 Hours (Table) 10/11/18 10/11/18 10/11/18 Range/Units 08:16 11:09 14:59 Neutrophils # (Manual) 0.50 L (1.3-7.7) k/uL Lymphocytes # (Manual) 0.18 L (1.0-4.8) k/uL D-Dimer 1.78 H (<0.60) mg/L FEU Potassium (3.5-5.1) mmol/L Chloride (98-107) mmol/L Glucose (74-99) mg/dL POC Glucose (mg/dL) 109 H (75-99) mg/dL Calcium (8.4-10.2) mg/dL Total Bilirubin (0.2-1.3) mg/dL AST (14-36) U/L Alkaline Phosphatase (38-126) U/L Total Protein (6.3-8.2) g/dL Albumin (3.5-5.0) g/dL 10/11/18 10/12/18 Range/Units 17:01 09:14 Neutrophils # (Manual) (1.3-7.7) k/uL Lymphocytes # (Manual) (1.0-4.8) k/uL D-Dimer (<0.60) mg/L FEU Potassium 3.3 L (3.5-5.1) mmol/L Chloride 112 H (98-107) mmol/L Glucose 129 H (74-99) mg/dL POC Glucose (mg/dL) 73 L (75-99) mg/dL Calcium 8.0 L (8.4-10.2) mg/dL Total Bilirubin 1.7 H (0.2-1.3) mg/dL AST 44 H (14-36) U/L Alkaline Phosphatase 190 H (38-126) U/L Total Protein 4.4 L (6.3-8.2) g/dL Albumin 2.4 L (3.5-5.0) g/dL Microbiology - Last 24 Hours (Table) 10/10/18 17:30 Blood Culture - Preliminary Blood No Growth after 24 hours Assessment and Plan Assessment: Assessment and Plan 1. Sepsis due to C. diff colitis 2. C. diff colitis with immunocompromise state 3. Hypokalemia 4. Bicytopenia 5. Elevated liver enzymes 6. Factor V Leiden 7. Elevated D-dimer 8. Hypothyroidism 9. Hypertension 1. Initially met septic criteria (HR as high as 97, T-max 101.9F, leukopenia with WBC count of 1.6, positive source of infection). Lactic acid negative. C. diff positive. UA showing trace leukocyte esterase. Blood culture preliminary negative at 24 hours. Plan: Continue antibiotics by mouth. Continue normal saline at 120 mL/h. Follow blood cultures. 2. Likely due to immunocompromise state from chemotherapy. CT abdomen and pelvis show prominence of the sigmoid colon and descending colon. C. diff p ositive. Plan: Continue vancomycin by mouth. Zofran as needed for nausea or vomiting. Continue Protonix twice a day. Continue normal saline at 120 mL/h. Morphine as needed for pain control. Contact precautions. 3. Potassium 3.3. Likely secondary to diarrhea. Plan: Replace via protocol. Daily CMP. 4. Patient leukopenic to 1.3, platelet count 64. Hematology consulted, recommends transfuse PRBC if hemoglobin less than 7 and platelets if less than 10. Plan: Follow hematology recommendations, will likely need bone marrow biopsy in the outpatient setting. Daily CBC. 5. Total bilirubin 1.7, AST 44, alkaline phosphatase 190. CTAP shows nodularity in the liver, possible cirrhosis. Hepatitis panel negative. Lipid panel within normal limits August 2018. Plan: Daily CMP. Needs adequate follow-up in the outpatient setting. 6. Stable. Plans: Continue aspirin as per hematology recommendations. DVT prophylaxis with heparin subcutaneously. 7. Likely secondary to chronic disease. CTA chest rules out PE. Plan: Continue to monitor. 8. Plan: Continue Synthroid. 9. BP 111/56. Plan: Continue lisinopril. Monitor vitals, adjust medications as necessary. Patient continues to have diarrhea and electrolyte abnormalities. Hematology consulted for bicytopenia. Continue antibiotics by mouth. She is pending clinical improvement. Likely DC in 1-2 days.
[2018-10-12 10:20] LABS: HCT 31.8 % (34.0-46.0); HGB 10.2 gm/dL (11.4-16.0); Hypochromasia Slight; MCHC 32.2 g/dL (31.0-37.0); MCV 105.5 fL (80.0-100.0); Macrocytosis Moderate; Mean Platelet Volume 8.2; RBC 3.01 m/uL (3.80-5.40); RDW 14.5 % (11.5-15.5)
[2018-10-12 10:26] LABS: Platelet Count 72 k/uL (150-450); WBC 0.6 k/uL (3.8-10.6)
[2018-10-12 11:23] LABS: Glucose,Whole Blood 93 mg/dL (75-99)
[2018-10-12] MEDS: CHOLESTYRAMINE (WITH SUGAR) 4 GM PACKET PO SCH ×2 (11:38→22:27)
[2018-10-12 13:00] LABS: Immunoglobulin A 71.8 mg/dL (60.0-350.0); Immunoglobulin M <16.9 mg/dL (40.0-280.0)
[2018-10-12 16:47] LABS: Glucose,Whole Blood 111 mg/dL (75-99)
[2018-10-12 20:37] LABS: Glucose,Whole Blood 124 mg/dL (75-99)
[2018-10-12] MEDS: ATORVASTATIN 40 MG TAB PO SCH (21:25)
[2018-10-12] MEDS: GABAPENTIN 300 MG CAP PO SCH (21:25)
[2018-10-13] MEDS: VANCOMYCIN ORAL SOLUTION 250 MG/5 ML BOTTLE PO SCH ×5 (00:08→23:40)
[2018-10-13] MEDS: HEPARIN SODIUM,PORCINE 5,000 UNIT/ML 1 ML VIAL SQ SCH ×4 (00:08→23:40)
[2018-10-13] MEDS: CHERRY FLAVOR 60 ML BOTTLE PO SCH ×5 (00:08→23:40)
[2018-10-13] MEDS: LEVOTHYROXINE 137 MCG TAB PO SCH (06:03)
[2018-10-13] MEDS: MORPHINE SULFATE 4 MG/ML SYRINGE IVP PRN ×4 (06:12→22:13)
[2018-10-13 07:07] LABS: Glucose,Whole Blood 87 mg/dL (75-99)
[2018-10-13] MEDS: ASPIRIN 81 MG PO SCH (08:32)
[2018-10-13] MEDS: LISINOPRIL 20 MG TAB PO SCH (08:32)
[2018-10-13] MEDS: SERTRALINE 100 MG TAB PO SCH ×2 (08:32→22:12)
[2018-10-13] MEDS: CHOLESTYRAMINE (WITH SUGAR) 4 GM PACKET PO SCH ×2 (08:33→23:32)
[2018-10-13] MEDS: POTASSIUM CHLORIDE ER 20 MEQ TAB.ER PO SCH ×2 (08:33→22:12)
[2018-10-13] MEDS: PANTOPRAZOLE 40 MG TABLET PO SCH ×2 (08:33→17:55)
[2018-10-13] MEDS: INSULIN ASPART (NovoLOG) 100 UNIT/ML VIAL SQ SCH ×4 (09:48→22:24)
[2018-10-13] MEDS: SODIUM CHLORIDE 0.9% 1,000 ML IV SCH ×3 (09:49→22:11)
[2018-10-13 11:23] LABS: Glucose,Whole Blood 80 mg/dL (75-99)
--- NOTE | 2018-10-13 12:48 | P.PN ---
Subjective Progress Note Date: 10/13/18 Principal diagnosis: Diarrhea Patient was seen and examined. No acute events overnight. Patient reports improvement in her diarrhea. One bowel movement that was watery today. Complains of abdominal cramping bilaterally. Complains of nausea but no vomiting. Requesting more solid food. Denies any chest pain, shortness of breath or palpitations. Objective - Vital Signs Vital signs: Vital Signs Temp 98.3 F 10/13/18 12:23 Pulse 68 10/13/18 12:23 Resp 17 10/13/18 12:23 BP 158/73 10/13/18 12:23 Pulse Ox 99 10/13/18 12:23 Intake & Output 10/12/18 10/13/18 10/13/18 18:59 06:59 18:59 Intake Total 360 1880 Balance 360 1880 Intake: Intake, IV Titration 1080 Amount Sodium Chloride 0.9% 1, 1080 000 ml @ 120 mls/hr IV . Q8H20M [facility] Rx#:[id number] Oral 360 800 Other: Voiding Method Toilet Toilet Toilet # Voids 2 1 # Bowel Movements 2 1 - Exam General: [non toxic], [no distress], [appears at stated age] Derm: [warm], [dry] Head: [atraumatic], [normocephalic], [symmetric] Eyes: [EOMI], [no lid lag], [ecchymotic right eye] Mouth: [no lip lesion], [mucus membranes moist] Cardiovascular: [S1S2 reg], [no murmur], [positive DP pulse bilateral] Lungs: [CTA bilateral], [no rhonchi, no rales] , [no accessory muscle use] Abdominal: [soft], [generalized tenderness to deep palpation without rebound], [no guarding], [hyperactive bowel sounds] Ext: [no gross muscle atrophy], [no edema], [no contractures] Neuro: [no focal neuro deficits] Psych: [Alert], [oriented], [appropriate affect] - Labs CBC & Chem 7: 10/12/18 09:14 10/12/18 16:13 Labs: Abnormal Lab Results - Last 24 Hours (Table) 10/11/18 10/12/18 10/12/18 Range/Units 14:59 09:14 16:46 Plt Count 72 L (150-450) k/uL POC Glucose (mg/dL) 111 H (75-99) mg/dL IgG 480.0 L (700.0-1600.0) mg/dL IgM <16.9 L (40.0-280.0) mg/dL 10/12/18 Range/Units 20:36 Plt Count (150-450) k/uL POC Glucose (mg/dL) 124 H (75-99) mg/dL IgG (700.0-1600.0) mg/dL IgM (40.0-280.0) mg/dL Microbiology - Last 24 Hours (Table) 10/10/18 17:30 Blood Culture - Preliminary Blood No Growth after 48 hours Assessment and Plan Assessment: Assessment and Plan 1. Sepsis due to C. diff colitis 2. C. diff colitis with immunocompromise state 3. Hypokalemia 4. Bicytopenia 5. Elevated liver enzymes 6. Factor V Leiden 7. Elevated D-dimer 8. Hypothyroidism 9. Hypertension 1. Initially met septic criteria (HR as high as 97, T-max 101.9F, leukopenia with WBC count of 1.6, positive source of infection). Lactic acid negative. C. diff positive. UA showing trace leukocyte esterase. Blood culture preliminary negative at 48 hours. Plan: Continue antibiotics by mouth. Continue normal saline at 120 mL/h. Follow blood cultures. 2. Likely due to immunocompromise state from chemotherapy. CT abdomen and pelvis show prominence of the sigmoid colon and descending colon. C. diff positive. Plan: Continue vancomycin by mouth. Zofran as needed for nausea or vomiting. Continue Protonix twice a day. Continue normal saline at 120 mL/h. Morphine as needed for pain control. Add Bentyl for abdominal cramping. Advance diet. Contact precautions. 3. Potassium 3.6. Likely secondary to diarrhea. Plan: Replace via protocol. Daily CMP. 4. Patient leukopenic to 1.3-0.6, platelet count 64-72. Hematology consulted, recommends transfuse PRBC if hemoglobin less than 7 and platelets if less than 1 0. Plan: Follow hematology recommendations, will likely need bone marrow biopsy in the outpatient setting. Daily CBC. Neutropenia precautions. 5. Total bilirubin 1.7, AST 44, alkaline phosphatase 190. CTAP shows nodularity in the liver, possible cirrhosis. Hepatitis panel negative. Lipid panel within normal limits August 2018. Plan: Daily CMP. Needs adequate follow-up in the outpatient setting. 6. Stable. Plans: Continue aspirin as per hematology recommendations. DVT prophylaxis with heparin subcutaneously. 7. Likely secondary to chronic disease. CTA chest rules out PE. Plan: Continue to monitor. 8. Plan: Continue Synthroid. 9. BP 158/73. Plan: Continue lisinopril. Monitor vitals, adjust medications as necessary. Diarrhea slightly improved. Hematology consulted for bicytopenia. Continue antibiotics by mouth. Advancing diet today. Likely DC tomorrow if tolerating.
[2018-10-13] MEDS: DICYCLOMINE 10 MG CAP PO SCH ×3 (13:41→22:11)
[2018-10-13 17:13] LABS: Glucose,Whole Blood 121 mg/dL (75-99)
[2018-10-13 20:21] LABS: Glucose,Whole Blood 140 mg/dL (75-99)
[2018-10-13] MEDS: GABAPENTIN 300 MG CAP PO SCH (22:11)
[2018-10-13] MEDS: ATORVASTATIN 40 MG TAB PO SCH (22:12)
[2018-10-13] MEDS: ONDANSETRON 4 MG/2 ML VIAL IVP PRN (23:48)
[2018-10-14] MEDS: MORPHINE SULFATE 4 MG/ML SYRINGE IVP PRN ×4 (04:30→16:38)
[2018-10-14] MEDS: CHERRY FLAVOR 60 ML BOTTLE PO SCH ×4 (05:59→23:22)
[2018-10-14] MEDS: VANCOMYCIN ORAL SOLUTION 250 MG/5 ML BOTTLE PO SCH ×4 (05:59→23:22)
[2018-10-14] MEDS: LEVOTHYROXINE 137 MCG TAB PO SCH (06:00)
[2018-10-14 07:02] LABS: Glucose,Whole Blood 102 mg/dL (75-99)
[2018-10-14] MEDS: SODIUM CHLORIDE 0.9% 1,000 ML IV SCH ×3 (07:09→22:00)
[2018-10-14] MEDS: PANTOPRAZOLE 40 MG TABLET PO SCH ×2 (08:23→16:30)
[2018-10-14] MEDS: INSULIN ASPART (NovoLOG) 100 UNIT/ML VIAL SQ SCH ×4 (08:23→21:53)
[2018-10-14] MEDS: HEPARIN SODIUM,PORCINE 5,000 UNIT/ML 1 ML VIAL SQ SCH ×3 (08:24→23:22)
[2018-10-14] MEDS: ASPIRIN 81 MG PO SCH (08:24)
[2018-10-14] MEDS: POTASSIUM CHLORIDE ER 20 MEQ TAB.ER PO SCH ×2 (08:24→21:52)
[2018-10-14] MEDS: LISINOPRIL 20 MG TAB PO SCH (08:24)
[2018-10-14] MEDS: CHOLESTYRAMINE (WITH SUGAR) 4 GM PACKET PO SCH ×2 (08:24→23:22)
[2018-10-14] MEDS: DICYCLOMINE 10 MG CAP PO SCH ×3 (08:24→21:53)
[2018-10-14] MEDS: SERTRALINE 100 MG TAB PO SCH ×2 (08:25→21:52)
[2018-10-14] MEDS: ONDANSETRON 4 MG/2 ML VIAL IVP PRN ×2 (08:42→21:01)
--- NOTE | 2018-10-14 08:53 | P.PN ---
Subjective Progress Note Date: 10/14/18 Principal diagnosis: Diarrhea Patient was seen and examined. No acute events overnight. Patient reports 7 out of 10 abdominal pain in the lower quadrant, cramping and twisting in nature. She denies any dysuria. One bowel movement yesterday, watery in nature. Transitioned to soft diet but had nausea, with no vomiting. She denies any chest pain shortness of breath or palpitations. No fever or chills. Objective - Vital Signs Vital signs: Vital Signs Temp 98.1 F 10/14/18 05:00 Pulse 76 10/14/18 05:00 Resp 18 10/14/18 05:00 BP 158/72 10/14/18 05:00 Pulse Ox 94 L 10/14/18 05:00 Intake & Output 10/13/18 10/14/18 10/14/18 18:59 06:59 18:59 Intake Total 2120 Balance 2120 Intake: Intake, IV Titration 1080 Amount Sodium Chloride 0.9% 1, 1080 000 ml @ 120 mls/hr IV . Q8H20M [facility] Rx#:[id number] Oral 1040 Other: Voiding Method Toilet Toilet # Voids 2 1 # Bowel Movements 1 1 - Exam General: [non toxic], [no distress], [appears at stated age] Derm: [warm], [dry] Head: [atraumatic], [normocephalic], [symmetric] Eyes: [EOMI], [no lid lag], [ecchymotic right eye] Mouth: [no lip lesion], [mucus membranes moist] Cardiovascular: [S1S2 reg], [no murmur], [positive DP pulse bilateral] Lungs: [CTA bilateral], [no rhonchi, no rales] , [no accessory muscle use] Abdominal: [soft], [generalized tenderness to deep palpation without rebound], [no guarding], [hyperactive bowel sounds] Ext: [no gross muscle atrophy], [no edema], [no contractures] Neuro: [no focal neuro deficits] Psych: [Alert], [oriented], [appropriate affect] - Labs CBC & Chem 7: 10/12/18 09:14 10/12/18 16:13 Labs: Abnormal Lab Results - Last 24 Hours (Table) 10/13/18 10/13/18 10/14/18 Range/Units 17:11 20:20 07:00 POC Glucose (mg/dL) 121 H 140 H 102 H (75-99) mg/dL Microbiology - Last 24 Hours (Table) 10/10/18 17:30 Blood Culture - Preliminary Blood No Growth after 72 hours Assessment and Plan Assessment: Assessment and Plan 1. Sepsis due to C. diff colitis 2. C. diff colitis with immunocompromise state 3. Hypokalemia 4. Bicytopenia 5. Elevated liver enzymes 6. Factor V Leiden 7. Elevated D-dimer 8. Hypothyroidism 9. Hypertension 1. Initially met septic criteria (HR as high as 97, T-max 101.9F, leukopenia with WBC count of 1.6, positive source of infection). Lactic acid negative. C. diff positive. UA showing trace leukocyte esterase. Blood culture preliminary negative at 72 hours. Plan: Continue antibiotics by mouth. Continue normal saline at 120 mL/h. Follow blood cultures. 2. Likely due to immunocompromise state from chemotherapy. CT abdomen and pelvis show prominence of the sigmoid colon and descending colon. C. diff positive. Plan: Continue vancomycin by mouth. Zofran as needed for nausea or vomiting. Continue Protonix twice a day. Continue normal saline at 120 mL/h. Morphine as needed for pain control. Add Bentyl for abdominal cramping. Advance diet. Contact precautions. 3. Potassium 3.6. Likely secondary to diarrhea. Plan: Replace via protocol. Daily CMP. 4. Patient leukopenic to 1.3-0.6, platelet count 64-72. Hematology consulted, recommends transfuse PRBC if hemoglobin less than 7 and platelets if less than 10. Plan: Follow hematology recommendations, will likely need bone marrow biopsy in the outpatient setting. Daily CBC. Neutropenia precautions. 5. Total bilirubin 1.7, AST 44, alkaline phosphatase 190. CTAP shows nodularity in the liver, possible cirrhosis. Hepatitis panel negative. Lipid panel within normal limits August 2018. Plan: Daily CMP. Needs adequate follow-up in the outpatient setting. 6. Stable. Plans: Continue aspirin as per hematology recommendations. DVT prophylaxis with heparin subcutaneously. 7. Likely secondary to chronic disease. CTA chest rules out PE. Plan: Continue to monitor. 8. Plan: Continue Synthroid. 9. BP 158/72. Plan: Continue lisinopril. Monitor vitals, adjust medications a s necessary. Diarrhea slightly improved. Able to tolerate tiny amount of food with extreme nausea and no vomiting. Still complains of severe abdominal cramping. Hematology consulted for bicytopenia. Continue antibiotics by mouth. Advancing diet today. Likely DC tomorrow if abdominal pain is improved and able to tolerate diet.
[2018-10-14 09:14] LABS: HGB 10.6 gm/dL (11.4-16.0); Hypochromasia Slight; MCH 33.8 pg (25.0-35.0); MCHC 32.2 g/dL (31.0-37.0); MCV 104.9 fL (80.0-100.0); Macrocytosis Moderate; Mean Platelet Volume 8.3; RBC 3.15 m/uL (3.80-5.40); RDW 14.3 % (11.5-15.5)
[2018-10-14 09:19] LABS: African American GFR (CKD) >90 (>60 ml/min/1.73 sqM); Anion Gap 3 mmol/L; Blood Urea Nitrogen 7 mg/dL (7-17); Calcium 8.3 mg/dL (8.4-10.2); Carbon Dioxide 25 mmol/L (22-30); Chloride 113 mmol/L (98-107); Glucose 98 mg/dL (74-99); Potassium 4.4 mmol/L (3.5-5.1); Sodium 141 mmol/L (137-145)
[2018-10-14 09:28] LABS: Platelet Count 78 k/uL (150-450); WBC 0.6 k/uL (3.8-10.6)
[2018-10-14] MEDS: FILGRASTIM-SNDZ 480 MCG/0.8 ML SYRINGE SQ SCH (09:36)
[2018-10-14 11:21] LABS: Glucose,Whole Blood 121 mg/dL (75-99)
[2018-10-14 12:14] LABS: Anisocytosis (M) Present
[2018-10-14 17:16] LABS: Glucose,Whole Blood 136 mg/dL (75-99)
--- NOTE | 2018-10-14 19:46 | P.PN ---
Subjective Progress Note Date: 10/14/18 Principal diagnosis: pancytopenia, known patient, treatment for non-Hodgkin's lymphoma In follow-up today patient does have complaints of feeling weak, she continues to have diarrhea, mild rectal discomfort, denies pain, bleeding, mucus, older is certainly foul, no dysuria, hematuria, fevers, nausea or vomiting Objective - Vital Signs Vital signs: Vital Signs Temp 97.4 F L 10/14/18 12:16 Pulse 69 10/14/18 12:16 Resp 17 10/14/18 12:16 BP 160/72 10/14/18 12:16 Pulse Ox 99 10/14/18 12:16 Intake & Output 10/14/18 10/14/18 10/15/18 06:59 18:59 06:59 Intake Total 2120 840 Balance 2120 840 Intake: Intake, IV Titration 1080 840 Amount Sodium Chloride 0.9% 1, 1080 840 000 ml @ 120 mls/hr IV . Q8H20M [facility] Rx#:[id number] Oral 1040 Other: Voiding Method Toilet Toilet # Voids 1 # Bowel Movements 1 3 - Constitutional General appearance: Present: cooperative, no acute distress, obese - EENT Eyes: Present: anicteric sclerae, EOMI, normal appearance ENT: Present: hearing grossly normal, normal oropharynx - Respiratory Respiratory: bilateral: CTA - Cardiovascular Rhythm: regular Heart sounds: normal: S1, S2 Abnormal Heart Sounds: Absent: systolic murmur, diastolic murmur, rub, S3 Gallop, S4 Gallop, click, other - Peripheral edema leg Peripheral Edema: bilateral: None - Gastrointestinal General gastrointestinal: Present: normal bowel sounds, soft, tenderness - Integumentary Integumentary: Present: normal turgor, pale - Neurologic Neurologic: Present: CNII-XII intact - Musculoskeletal Musculoskeletal: Present: strength equal bilaterally - Psychiatric Psychiatric: Present: A&O x's 3, appropriate affect, intact judgment & insight - Labs CBC & Chem 7: 10/14/18 08:49 10/14/18 08:49 Labs: Abnormal Lab Results - Last 24 Hours (Table) 10/13/18 10/14/18 10/14/18 Range/Units 20:20 07:00 08:49 WBC 0.6 L* (3.8-10.6) k/uL RBC 3.15 L (3.80-5.40) m/uL Hgb 10.6 L (11.4-16.0) gm/dL Hct 33.0 L (34.0-46.0) % MCV 104.9 H (80.0-100.0) fL Plt Count 78 L (150-450) k/uL Chloride (98-107) mmol/L POC Glucose (mg/dL) 140 H 102 H (75-99) mg/dL Calcium (8.4-10.2) mg/dL 10/14/18 10/14/18 10/14/18 Range/Units 08:49 11:15 17:13 WBC (3.8-10.6) k/uL RBC (3.80-5.40) m/uL Hgb (11.4-16.0) gm/dL Hct (34.0-46.0) % MCV (80.0-100.0) fL Plt Count (150-450) k/uL Chloride 113 H (98-107) mmol/L POC Glucose (mg/dL) 121 H 136 H (75-99) mg/dL Calcium 8.3 L (8.4-10.2) mg/dL Microbiology - Last 24 Hours (Table) 10/10/18 17:30 Blood Culture - Preliminary Blood No Growth after 72 hours - Imaging and Cardiology CT scan - abdomen: report reviewed CT scan - chest: report reviewed CT scan - pelvis: report reviewed Assessment and Plan (1) C. difficile colitis Narrative/Plan: Over the past several months patient has required very aggressive antibiotic therapy for recurrent urinary tract infections so, it is not a huge surprise that the patient has ended up now with Clostridium difficile colitis. Would recommend Infectious disease to follow. Current Visit: Yes Status: Acute Priority: High Code(s): A04.72 - ENTEROCOLITIS D/T CLOSTRIDIUM DIFFICILE, NOT SPCF RECUR SNOMED Code(s): 173152176 (2) Lymphoma Narrative/Plan: Patient has been unable to go any further in her treatment due to persistent pancytopenia. Thankfully, patient does not have any gross evidence of recurrent disease. Current Visit: No Status: Chronic Priority: Medium Code(s): C85.90 - NON-HODGKIN LYMPHOMA, UNSPECIFIED, UNSPECIFIED SITE SNOMED Code(s): 795120907 (3) Pancytopenia Narrative/Plan: Hemoglobin and platelet counts though low, not requiring intervention at this time. Transfuse for hemoglobin less than 7 or if symptomatic. Transfuse for platelet count less than 10,000 unless symptomatic. Patient white blood cell count is 0.6. G-CSF has been initiated. Patient is on antibiotics. Current Visit: Yes Status: Chronic Priority: Medium Code(s): D61.818 - OTHER PANCYTOPENIA SNOMED Code(s): 940458448 (4) Hypogammaglobulinemia Narrative/Plan: IgG level is less than 500. Typically she would receive immunoglobulin infusion. This unfortunately is not being made at present bu the IV drug manufacturing companies. We'll put a message out to pharmacy that if they hear anything that they're able to get a dose or 2 for the patient it would be currently reasonable. Current Visit: Yes Status: Acute Priority: High Code(s): D80.1 - NONFAMILIAL HYPOGAMMAGLOBULINEMIA SNOMED Code(s): 311919110
[2018-10-14 20:18] LABS: Glucose,Whole Blood 131 mg/dL (75-99)
[2018-10-14] MEDS: ATORVASTATIN 40 MG TAB PO SCH (21:51)
[2018-10-14] MEDS: GABAPENTIN 300 MG CAP PO SCH (21:52)
[2018-10-15] MEDS: MORPHINE SULFATE 4 MG/ML SYRINGE IVP PRN ×4 (00:56→19:29)
[2018-10-15] MEDS: VANCOMYCIN ORAL SOLUTION 250 MG/5 ML BOTTLE PO SCH ×3 (06:05→18:13)
[2018-10-15] MEDS: CHERRY FLAVOR 60 ML BOTTLE PO SCH ×3 (06:05→18:13)
[2018-10-15] MEDS: LEVOTHYROXINE 137 MCG TAB PO SCH (06:05)
[2018-10-15] MEDS: PANTOPRAZOLE 40 MG TABLET PO SCH ×2 (06:54→18:13)
[2018-10-15 07:07] LABS: Glucose,Whole Blood 113 mg/dL (75-99)
[2018-10-15] MEDS: INSULIN ASPART (NovoLOG) 100 UNIT/ML VIAL SQ SCH ×4 (08:15→21:33)
[2018-10-15] MEDS: HEPARIN SODIUM,PORCINE 5,000 UNIT/ML 1 ML VIAL SQ SCH ×2 (08:18→17:32)
[2018-10-15] MEDS: CHOLESTYRAMINE (WITH SUGAR) 4 GM PACKET PO SCH ×2 (08:19→21:38)
[2018-10-15] MEDS: ASPIRIN 81 MG PO SCH (08:19)
[2018-10-15] MEDS: DICYCLOMINE 10 MG CAP PO SCH ×3 (08:19→21:38)
[2018-10-15] MEDS: POTASSIUM CHLORIDE ER 20 MEQ TAB.ER PO SCH ×2 (08:20→21:38)
[2018-10-15] MEDS: LISINOPRIL 20 MG TAB PO SCH (08:20)
[2018-10-15] MEDS: SERTRALINE 100 MG TAB PO SCH ×2 (08:20→21:38)
[2018-10-15 08:35] LABS: Basophils % (A) 1 %; Eosinophils # (A) 0.1 k/uL (0-0.7); Eosinophils % (A) 7 %; HCT 32.6 % (34.0-46.0); HGB 10.5 gm/dL (11.4-16.0); Lymphocytes # (A) 0.1 k/uL (1.0-4.8); Lymphocytes % (A) 9 %; MCH 33.3 pg (25.0-35.0); MCHC 32.2 g/dL (31.0-37.0); MCV 103.6 fL (80.0-100.0); Macrocytosis Slight; Mean Platelet Volume 9.1; Monocytes # (A) 0.2 k/uL (0-1.0); Monocytes % (A) 21 %; Neutrophils # (A) 0.6 k/uL (1.3-7.7); Neutrophils % (A) 57 %; RBC 3.14 m/uL (3.80-5.40); RDW 14.2 % (11.5-15.5)
[2018-10-15 08:48] LABS: ALT 35 U/L (9-52); AST 33 U/L (14-36); African American GFR (CKD) >90 (>60 ml/min/1.73 sqM); Albumin 2.6 g/dL (3.5-5.0); Alkaline Phosphatase 217 U/L (38-126); Anion Gap 3 mmol/L; Blood Urea Nitrogen 5 mg/dL (7-17); Calcium 8.5 mg/dL (8.4-10.2); Carbon Dioxide 24 mmol/L (22-30); Chloride 111 mmol/L (98-107); Glucose 128 mg/dL (74-99); Potassium 4.4 mmol/L (3.5-5.1); Sodium 138 mmol/L (137-145); Total Bilirubin 1.3 mg/dL (0.2-1.3); Total Protein 4.6 g/dL (6.3-8.2)
[2018-10-15] MEDS: FILGRASTIM-SNDZ 480 MCG/0.8 ML SYRINGE SQ SCH (09:00)
[2018-10-15] MEDS: SODIUM CHLORIDE 0.9% 1,000 ML IV SCH ×2 (09:00→17:35)
--- NOTE | 2018-10-15 09:01 | P.PN ---
Subjective Progress Note Date: 10/15/18 Principal diagnosis: C. diff Patient was seen and examined. No acute events overnight. Patient reports one episode of nausea related to vomiting yesterday. She did have one bowel movement yesterday with better stool caliber. Also complains of abdominal cramping. She denies any fever or chills. She denies any chest pain, shortness of breath or palpitations. Objective - Vital Signs Vital signs: Vital Signs Temp 98.2 F 10/15/18 04:07 Pulse 74 10/15/18 04:07 Resp 18 10/15/18 07:08 BP 147/68 10/15/18 04:07 Pulse Ox 96 10/15/18 04:07 Intake & Output 10/14/18 10/15/18 10/15/18 18:59 06:59 18:59 Intake Total 840 1670 Balance 840 1670 Intake: Intake, IV Titration 840 1080 Amount Sodium Chloride 0.9% 1, 840 1080 000 ml @ 120 mls/hr IV . Q8H20M [facility] Rx#:[id number] Oral 590 Other: Voiding Method Toilet Toilet Toilet # Voids 1 # Bowel Movements 3 2 - Exam General: [non toxic], [no distress], [appears at stated age] Derm: [warm], [dry] Head: [atraumatic], [normocephalic], [symmetric] Eyes: [EOMI], [no lid lag], [ecchymotic right eye] Mouth: [no lip lesion], [mucus membranes moist] Cardiovascular: [S1S2 reg], [no murmur], [positive DP pulse bilateral] Lungs: [CTA bilateral], [no rhonchi, no rales] , [no accessory muscle use] Abdominal: [soft], [generalized tenderness to deep palpation without rebound], [no guarding], [hyperactive bowel sounds] Ext: [no gross muscle atrophy], [no edema], [no contractures] Neuro: [no focal neuro deficits] Psych: [Alert], [oriented], [appropriate affect] - Labs CBC & Chem 7: 10/14/18 08:49 10/15/18 08:12 Labs: Abnormal Lab Results - Last 24 Hours (Table) 10/14/18 10/14/18 10/14/18 Range/Units 08:49 08:49 11:15 WBC 0.6 L* (3.8-10.6) k/uL RBC 3.15 L (3.80-5.40) m/uL Hgb 10.6 L (11.4-16.0) gm/dL Hct 33.0 L (34.0-46.0) % MCV 104.9 H (80.0-100.0) fL Plt Count 78 L (150-450) k/uL Chloride 113 H (98-107) mmol/L BUN (7-17) mg/dL Glucose (74-99) mg/dL POC Glucose (mg/dL) 121 H (75-99) mg/dL Calcium 8.3 L (8.4-10.2) mg/dL Alkaline Phosphatase (38-126) U/L Total Protein (6.3-8.2) g/dL Albumin (3.5-5.0) g/dL 10/14/18 10/14/18 10/15/18 Range/Units 17:13 20:07 06:53 WBC (3.8-10.6) k/uL RBC (3.80-5.40) m/uL Hgb (11.4-16.0) gm/dL Hct (34.0-46.0) % MCV (80.0-100.0) fL Plt Count (150-450) k/uL Chloride (98-107) mmol/L BUN (7-17) mg/dL Glucose (74-99) mg/dL POC Glucose (mg/dL) 136 H 131 H 113 H (75-99) mg/dL Calcium (8.4-10.2) mg/dL Alkaline Phosphatase (38-126) U/L Total Protein (6.3-8.2) g/dL Albumin (3.5-5.0) g/dL 10/15/18 Range/Units 08:12 WBC (3.8-10.6) k/uL RBC (3.80-5.40) m/uL Hgb (11.4-16.0) gm/dL Hct (34.0-46.0) % MCV (80.0-100.0) fL Plt Count (150-450) k/uL Chloride 111 H (98-107) mmol/L BUN 5 L (7-17) mg/dL Glucose 128 H (74-99) mg/dL POC Glucose (mg/dL) (75-99) mg/dL Calcium (8.4-10.2) mg/dL Alkaline Phosphatase 217 H (38-126) U/L Total Protein 4.6 L (6.3-8.2) g/dL Albumin 2.6 L (3.5-5.0) g/dL Microbiology - Last 24 Hours (Table) 10/10/18 17:30 Blood Culture - Preliminary Blood No Growth after 96 hours Assessment and Plan Assessment: Assessment and Plan 1. Sepsis due to C. diff colitis 2. C. diff colitis with immunocompromise state 3. Hypokalemia 4. Bicytopenia 5. Elevated liver enzymes 6. Factor V Leiden 7. Elevated D-dimer 8. Hypothyroidism 9. Hypertension 1. Initially met septic criteria (HR as high as 97, T-max 101.9F, leukopenia with WBC count of 1.6, positive source of infection). Lactic acid negative. C. diff positive. UA showing trace leukocyte esterase. Blood culture preliminary negative at 96 hours. Plan: Continue antibiotics by mouth. Continue normal saline at 120 mL/h. Follow blood cultures. 2. Likely due to immunocompromise state from chemotherapy. CT abdomen and pelvis show prominence of the sigmoid colon and descending colon. C. diff positive. Plan: Continue vancomycin by mouth. Zofran as needed for nausea or vomiting. Continue Protonix twice a day. Continue normal saline at 120 mL/h. Morphine as needed for pain control. Continue Bentyl for abdominal cramping. Advance diet. Contact precautions. 3. Potassium 3.6. Likely secondary to diarrhea. Plan: Replace via protocol. Daily CMP. 4. Patient leukopenic to 1.3-0.6, platelet count 64-72. Hematology consulted, recommends transfuse PRBC if hemoglobin less than 7 and platelets if less than 10. Plan: Follow hematology recommendations, will likely need bone marrow biopsy in the outpatient setting. Daily CBC. Neutropenia precautions. 5. Total bilirubin 1.7, AST 44, alkaline phosphatase 190. CTAP shows nodularity in the liver, possible cirrhosis. Hepatitis panel negative. Lipid panel within normal limits August 2018. Plan: Daily CMP. Needs adequate follow-up in the outpatient setting. 6. Stable. Plans: Continue aspirin as per hematology recommendations. DVT prophylaxis with heparin subcutaneously. 7. Likely secondary to chronic disease. CTA chest rules out PE. Plan: Continue to monitor. 8. Plan: Continue Synthroid. 9. BP 147/68. Plan: Continue lisinopril. Monitor vitals, adjust medications as necessary. Diarrhea improved. Patient intolerable of diarrhea, emesis yesterday. Still complains of severe abdominal cramping. Hematology consulted for bicytopenia. Continue antibiotics by mouth. Concerns for high risk of readmission rate. Will observe 1 more day, likely DC tomorrow.
[2018-10-15 09:06] LABS: Platelet Count 66 k/uL (150-450)
[2018-10-15 10:36] LABS: Poikilocytosis (M) Present
[2018-10-15 11:19] LABS: Glucose,Whole Blood 120 mg/dL (75-99)
[2018-10-15] MEDS ORDERED: HEPARIN SODIUM,PORCINE 5,000 UNIT/ML 1 ML VIAL ONE (15:10)
[2018-10-15] MEDS ORDERED: DICYCLOMINE 10 MG CAP ONE (15:10)
[2018-10-15] MEDS ORDERED: MORPHINE SULFATE 4 MG/ML SYRINGE ONE (15:10)
[2018-10-15 17:35] LABS: Glucose,Whole Blood 105 mg/dL (75-99)
--- NOTE | 2018-10-15 18:16 | P.PN ---
Subjective Progress Note Date: 10/15/18 Principal diagnosis: pancytopenia, known patient, Hx of treatment for non-Hodgkin's lymphoma In follow-up today patient is beginning to tolerate a diet, no current fevers, nausea, vomiting, diarrhea has slowed down, no dysuria, bleeding, independently ambulatory Objective - Vital Signs Vital signs: Vital Signs Temp 97.1 F L 10/15/18 12:07 Pulse 68 10/15/18 12:07 Resp 20 10/15/18 12:07 BP 130/62 10/15/18 12:07 Pulse Ox 97 10/15/18 12:07 Intake & Output 10/14/18 10/15/18 10/15/18 18:59 06:59 18:59 Intake Total 840 1670 960 Balance 840 1670 960 Intake: Intake, IV Titration 840 1080 960 Amount Sodium Chloride 0.9% 1, 840 1080 960 000 ml @ 120 mls/hr IV . Q8H20M [facility] Rx#:[id number] Oral 590 Other: Voiding Method Toilet Toilet Toilet # Voids 1 # Bowel Movements 3 2 - Exam Well-developed, overweight, alert and oriented 4, no acute distress, respirations even and unlabored, skin is warm and dry, no lower extremity swelling - Labs CBC & Chem 7: 10/15/18 08:12 10/15/18 08:12 Labs: Abnormal Lab Results - Last 24 Hours (Table) 10/14/18 10/15/18 10/15/18 Range/Units 20:07 06:53 08:12 WBC 1.0 L* (3.8-10.6) k/uL RBC 3.14 L (3.80-5.40) m/uL Hgb 10.5 L (11.4-16.0) gm/dL Hct 32.6 L (34.0-46.0) % MCV 103.6 H (80.0-100.0) fL Plt Count 66 L (150-450) k/uL Neutrophils # 0.6 L (1.3-7.7) k/uL Lymphocytes # 0.1 L (1.0-4.8) k/uL Chloride (98-107) mmol/L BUN (7-17) mg/dL Glucose (74-99) mg/dL POC Glucose (mg/dL) 131 H 113 H (75-99) mg/dL Alkaline Phosphatase (38-126) U/L Total Protein (6.3-8.2) g/dL Albumin (3.5-5.0) g/dL 10/15/18 10/15/18 10/15/18 Range/Units 08:12 11:17 17:14 WBC (3.8-10.6) k/uL RBC (3.80-5.40) m/uL Hgb (11.4-16.0) gm/dL Hct (34.0-46.0) % MCV (80.0-100.0) fL Plt Count (150-450) k/uL Neutrophils # (1.3-7.7) k/uL Lymphocytes # (1.0-4.8) k/uL Chloride 111 H (98-107) mmol/L BUN 5 L (7-17) mg/dL Glucose 128 H (74-99) mg/dL POC Glucose (mg/dL) 120 H 105 H (75-99) mg/dL Alkaline Phosphatase 217 H (38-126) U/L Total Protein 4.6 L (6.3-8.2) g/dL Albumin 2.6 L (3.5-5.0) g/dL Microbiology - Last 24 Hours (Table) 10/10/18 17:30 Blood Culture - Preliminary Blood No Growth after 96 hours Assessment and Plan (1) C. difficile colitis Narrative/Plan: Over the past several months patient has required very aggressive antibiotic therapy for recurrent, complicated urinary tract infections so, Clostridium difficile colitis infection could be expected. Would recommend Infectious disease to follow. Current Visit: Yes Status: Acute Priority: High Code(s): A04.72 - ENTEROCOLITIS D/T CLOSTRIDIUM DIFFICILE, NOT SPCF RECUR SNOMED Code(s): 445476906 (2) Lymphoma Narrative/Plan: Patient has been unable to go any further in her treatment due to persistent pancytopenia, last treatment August 2018. Thankfully, patient does not have any gross evidence of recurrent disease. She is current on her follow-up with Dr. Balderrama Current Visit: No Status: Chronic Priority: Medium Code(s): C85.90 - NON- HODGKIN LYMPHOMA, UNSPECIFIED, UNSPECIFIED SITE SNOMED Code(s): 184906352 (3) Pancytopenia Narrative/Plan: WBC 1, absolute neutrophil count 600, hemoglobin 10.5, platelet count 66,000. Continue G-CSF, no packed red blood cell or platelet transfusions necessary at this time. Current Visit: Yes Status: Chronic Priority: Medium Code(s): D61.818 - OTHER PANCYTOPENIA SNOMED Code(s): 386256201 (4) Hypogammaglobulinemia Current Visit: Yes Status: Acute Priority: High Code(s): D80.1 - NONFAMILIAL HYPOGAMMAGLOBULINEMIA SNOMED Code(s): 767440126
[2018-10-15 20:16] LABS: Glucose,Whole Blood 127 mg/dL (75-99)
[2018-10-15] MEDS: ATORVASTATIN 40 MG TAB PO SCH (21:38)
[2018-10-15] MEDS: GABAPENTIN 300 MG CAP PO SCH (21:38)
--- NOTE | 2018-10-15 22:08 | P.CONS ---
History of Present Illness - Reason for Consult Consult date: 10/15/18 Recurrent C. diff colitis with sepsis Requesting physician: Eze Francis - Chief Complaint Diarrhea and abdominal pain 3 days prior to presentation - History of Present Illness Patient is a 57-year-old female with a past medical history significant for C. diff colitis last month that was treated with a ten-day course of oral vancomycin the patient did have overall resolution of her symptoms, the patient started having problem with the diarrhea on 10/07/2018 patient says she did follow with her primary care physician the next day however no medication prescribed patient says she felt better the next day and did went to work however on that is 10/10/2018 patient did have a fever rigors and chills abdominal pain he described to be crampy intensity almost unable to prevent her with assisted nausea no vomiting and multiple loose stools with the symptoms the patient presented to hospital same day on arrival to the ER the patient did have a fever of 101 degrees Fahrenheit she did have a tachycardia leukopenia with a diagnosis of sepsis she did have a seated milligrams was negative for PE or any infiltrate stools for C. diff came back positive the patient was started on oral vancomycin and he was consented today for further recommendation regarding antibiotic in view of this being her second episode of C. diff colitis with underlying immune compromise condition from her chemotherapy Review of Systems Positive points has been mentioned rash. 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 History of Any Multi-Drug Resistant Organisms: C-DIFF Year Discovered:: 09/11/18 MDRO Source:: stool Past Surgical History: Adenoidectomy, Appendectomy, Back Surgery, Cholecystectomy, Hysterectomy, Orthopedic Surgery, Tonsillectomy Additional Past Surgical History / Comment(s): Recent abdominal mass biopsy x 2, BMA, EGD/colonoscopy at [facility], bilateral carpal tunnel release, thyroidectomy (one tiny piece unable to remove), ORIF rt ankle, stents in LL E/vascular stent, cervical surgery C4,C6, thyroidectomy Past Anesthesia/Blood Transfusion Reactions: Postoperative Nausea & Vomiting (PONV) Additional Past Anesthesia/Blood Transfusion Reaction / Comm: blood transfusion(December 2015) "pt stated an hour after transfusion became very nauseated and had quit a bit of vomiting" Past Psychological History: No Psychological Hx Reported Smoking Status: Never smoker Past Alcohol Use History: None Reported Past Drug Use History: None Reported - Past Family History Mother Family Medical History: Diabetes Mellitus, Renal Disease Additional Family Medical History / Comment(s): Mother of kidney failure at the age of 69yrs. Father Family Medical History: Diabetes Mellitus Additional Family Medical History / Comment(s): Father of a "sugar coma" when he was 72 yrs old. Brother(s) Family Medical History: Cancer Sister(s) Family Medical History: Myocardial Infarction ([place]) Additional Family Medical History / Comment(s): Patient has 3 sisters and 2 of them are diabetic. Son(s) Family Medical History: No Reported History (Patient has 4 sons no major medical problems) Additional Family Medical History / Comment(s): Patient has 4 sons with no major medical problems. Daughter(s) Family Medical History: Deep Vein Thrombosis (DVT) Additional Family Medical History / Comment(s): Patient has a daughter with DVT. Medications and Allergies Home Medications Medication Instructions Recorded Confirmed Type Atorvastatin [Lipitor] 40 mg PO HS 02/10/16 10/10/18 History Levothyroxine Sodium [Synthroid] 137 mcg PO DAILY 08/17/16 10/10/18 History Glimepiride [Amaryl] 2 mg PO BID 12/19/16 10/10/18 History Tolterodine ER [Detrol LA] 4 mg PO DAILY 03/30/17 10/10/18 History Gabapentin [Neurontin] 300 mg PO HS 06/07/18 10/10/18 History HYDROcodone/APAP 10-325MG [Early 1 tab PO Q6H PRN 06/07/18 10/10/18 History 10-325] Lisinopril [Zestril] 20 mg PO DAILY 06/07/18 10/10/18 History Omeprazole [PriLOSEC] 20 mg PO AC-BID 06/07/18 10/10/18 History Prochlorperazine [Compazine] 10 mg PO Q6H PRN 06/07/18 10/10/18 History Cholestyramine (with Sugar) 4 gm PO HS 09/11/18 10/10/18 History [Cholestyramine Powder] Diphenox-Atrop 2.5-0.025 mg 2 tab PO QID PRN 09/11/18 10/10/18 History [Lomotil] Ondansetron [Zofran] 4 mg PO Q6H PRN 09/11/18 10/10/18 History valACYclovir HCL [Valtrex] 1,000 mg PO DAILY PRN 09/11/18 10/10/18 History Aspirin 81 mg PO DAILY #30 chewable 09/17/18 10/10/18 Rx Cholestyramine (with Sugar) 4 gm PO BID #20 packet 09/17/18 10/10/18 Rx [Questran] Sertraline [Zoloft] 100 mg PO BID 10/10/18 10/10/18 History Allergies Allergy/AdvReac Type Severity Reaction Status Date / Time Anesthetics - Amide Type AdvReac Nausea & Verified 10/10/18 16:02 Vomiting & Diarrhea Anesthetics - Jonna Type- AdvReac Nausea & Verified 10/10/18 16:02 Parabens Vomiting & Diarrhea oxycodone [From OxyContin] AdvReac Nausea & Verified 10/10/18 16:02 Vomiting Physical Exam Vitals: Vital Signs Temp Pulse Pulse Resp BP Pulse Ox 10/15/18 07:08 18 10/15/18 04:07 98.2 F 74 18 147/68 96 10/14/18 21:00 98.0 F 70 18 163/74 97 10/14/18 12:16 97.4 F L 69 17 160/72 99 Intake and Output 10/14/18 10/15/18 10/15/18 22:59 06:59 14:59 Intake Total 590 1080 Balance 590 1080 Intake: Intake, IV Titration 1080 Amount Sodium Chloride 0.9% 1, 1080 000 ml @ 120 mls/hr IV . Q8H20M [facility] Rx#:[id number] Oral 590 Other: Voiding Method Toilet Toilet # Voids 1 1 # Bowel Movements 2 GENERAL DESCRIPTION: Middle-aged female lying in bed, no distress. No tachypnea or accessory muscle of respiration use. HEENT: Shows Pallor , no scleral icterus. Oral mucous membrane is dry. No pharyngeal erythema or thrush NECK: Trachea central, no thyromegaly. LUNGS: Unlabored breathing. Clear to auscultation anteriorly. No wheeze or crackle. HEART: S1, S2, regular rate and rhythm. No loud murmur ABDOMEN: Soft, mild left lower quadrant tenderness , no guarding or rigidity, no organomegaly EXTREMITIES: No edema of feet. SKIN: No rash, no masses palpable. NEUROLOGICAL: The patient is awake, alert, oriented x3, mood and affect normal Results CBC & Chem 7: 10/15/18 08:12 10/15/18 08:12 Labs: Abnormal Lab Results - Last 24 Hours (Table) 10/14/18 10/14/18 10/14/18 Range/Units 08:49 17:13 20:07 WBC 0.6 L* (3.8-10.6) k/uL RBC (3.80-5.40) m/uL Hgb (11.4-16.0) gm/dL Hct (34.0-46.0) % MCV (80.0-100.0) fL Plt Count 78 L (150-450) k/uL Neutrophils # (1.3-7.7) k/uL Lymphocytes # (1.0-4.8) k/uL Chloride (98-107) mmol/L BUN (7-17) mg/dL Glucose (74-99) mg/dL POC Glucose (mg/dL) 136 H 131 H (75-99) mg/dL Alkaline Phosphatase (38-126) U/L Total Protein (6.3-8.2) g/dL Albumin (3.5-5.0) g/dL 10/15/18 10/15/18 10/15/18 Range/Units 06:53 08:12 08:12 WBC 1.0 L* (3.8-10.6) k/uL RBC 3.14 L (3.80-5.40) m/uL Hgb 10.5 L (11.4-16.0) gm/dL Hct 32.6 L (34.0-46.0) % MCV 103.6 H (80.0-100.0) fL Plt Count 66 L (150-450) k/uL Neutrophils # 0.6 L (1.3-7.7) k/uL Lymphocytes # 0.1 L (1.0-4.8) k/uL Chloride 111 H (98-107) mmol/L BUN 5 L (7-17) mg/dL Glucose 128 H (74-99) mg/dL POC Glucose (mg/dL) 113 H (75-99) mg/dL Alkaline Phosphatase 217 H (38-126) U/L Total Protein 4.6 L (6.3-8.2) g/dL Albumin 2.6 L (3.5-5.0) g/dL 10/15/18 Range/Units 11:17 WBC (3.8-10.6) k/uL RBC (3.80-5.40) m/uL Hgb (11.4-16.0) gm/dL Hct (34.0-46.0) % MCV (80.0-100.0) fL Plt Count (150-450) k/uL Neutrophils # (1.3-7.7) k/uL Lymphocytes # (1.0-4.8) k/uL Chloride (98-107) mmol/L BUN (7-17) mg/dL Glucose (74-99) mg/dL POC Glucose (mg/dL) 120 H (75-99) mg/dL Alkaline Phosphatase (38-126) U/L Total Protein (6.3-8.2) g/dL Albumin (3.5-5.0) g/dL Microbiology - Last 24 Hours (Table) 10/10/18 17:30 Blood Culture - Preliminary Blood No Growth after 96 hours Assessment and Plan Assessment: 1-patient admitted hospital 5 days ago with sepsis source is likely recurrent C. diff colitis likely from regeneration of the spores in this patient who completed a course of oral vancomycin and no further exposure to other antibiotic therapy, the patient currently responding to oral vancomycin started by admitting team (1) C. difficile colitis Current Visit: Yes Status: Acute Priority: High Code(s): A04.72 - ENTEROCOLITIS D/T CLOSTRIDIUM DIFFICILE, NOT SPCF RECUR SNOMED Code(s): 128424239 Plan: 1-in view of her recurrent episode will recommended a tapering course of oral vancomycin on discharge 2-vancomycin 250 by mouth every 6 hours for 10 days, followed by 250 mg twice a day for 1 week, then vancomycin 250 mg daily for 1 week, followed by vancomycin 250 mg 1 dose every other day for 7 doses we will follow-up on her clinical condition and culture to further adjust medication if needed Thank you for this consultation will follow this patient along with you Time with Patient: Greater than 30
[2018-10-16] MEDS: CHERRY FLAVOR 60 ML BOTTLE PO SCH ×5 (00:01→23:22)
[2018-10-16] MEDS: VANCOMYCIN ORAL SOLUTION 250 MG/5 ML BOTTLE PO SCH ×5 (00:01→23:22)
[2018-10-16] MEDS: MORPHINE SULFATE 4 MG/ML SYRINGE IVP PRN ×4 (04:54→21:36)
[2018-10-16] MEDS: SODIUM CHLORIDE 0.9% 1,000 ML IV SCH ×3 (04:56→21:38)
[2018-10-16] MEDS: LEVOTHYROXINE 137 MCG TAB PO SCH (06:38)
[2018-10-16 07:16] LABS: Glucose,Whole Blood 90 mg/dL (75-99)
--- NOTE | 2018-10-16 08:25 | P.DS ---
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 Patient was just recently discharged early in September after treatment of initial episode of C. diff colitis with vancomycin. Patient was admitted for recurrence of C. difficile. Patient initially met sepsis criteria due to C. difficile colitis. Patient had a heart rate as high as 97, T-max of 101.9 Fahrenheit, leukopenic. WBC count of 1.6 and a positive source of infection. Lactic acid was negative. C. difficile was positive. UA showed trace leukocyte esterase. Blood cultures were prelim negative at 120 hours. This was started on vancomycin by mouth. She was given Zofran as needed for nausea and vomiting. She was hydrated with normal saline at 120 mL/h. Bentyl was added for abdominal cramping. Her diet was advanced. Infectious disease was consulted and recommended vancomycin tapering dose on discharge. Patient was noted to be hypokalemic during her hospitalization. This is thought to be secondary to diarrhea. Patient's potassium was within normal limits on discharge. Patient was noted to be neutropenic thought her hospitalization. She was placed on neutropenic precautions. Her ANC was 600 on discharge. Hematology was consulted and recommended, recommended to continue G-CSF and no PRBC or platelet transfusion at this time. Patient was seen and examined. No acute events overnight. Patient reports improvement in her diarrhea and abdominal pain. She complains of mild nausea but no vomiting. Tolerating soft diet. Requesting to go home tomorrow. General: [non toxic], [no distress], [appears at stated age] Derm: [warm], [dry] Head: [atraumatic], [normocephalic], [symmetric] Eyes: [EOMI], [no lid lag], [ecchymotic right eye] Mouth: [no lip lesion], [mucus membranes moist] Cardiovascular: [S1S2 reg], [no murmur], [positive DP pulse bilateral] Lungs: [CTA bilateral], [no rhonchi, no rales] , [no accessory muscle use] Abdominal: [soft], [generalized tenderness to deep palpation without rebound], [no guarding], [hyperactive bowel sounds] Ext: [no gross muscle atrophy], [no edema], [no contractures] Neuro: [no focal neuro deficits] Psych: [Alert], [oriented], [appropriate affect] Assessment and Plan 1. Sepsis due to C. diff colitis 2. C. diff colitis with immunocompromise state 3. Hypokalemia 4. Bicytopenia 5. Elevated liver enzymes 6. Factor V Leiden 7. Elevated D-dimer 8. Hypothyroidism 9. Hypertension 1. Initially met septic criteria (HR as high as 97, T-max 101.9F, leukopenia with WBC count of 1.6, positive source of infection). Lactic acid negative. C. diff positive. UA showing trace leukocyte esterase. Blood culture preliminary negative at 120 hours. Plan: Continue antibiotics by mouth. Continue normal saline at 120 mL/h. Follow blood cultures. 2. Likely due to immunocompromise state from chemotherapy. CT abdomen and pelvis show prominence of the sigmoid colon and descending colon. C. diff positive. Plan: Continue vancomycin by mouth. Zofran as needed for nausea or vomiting. Continue Protonix twice a day. Continue normal saline at 120 mL/h. Morphine as needed for pain control. Continue Bentyl for abdominal cramping. Advance diet. Contact precautions. 3. Potassium 3.6. Likely secondary to diarrhea. Plan: Replace via protocol. Daily CMP. 4. Patient leukopenic to 1.3-0.6-1.0, platelet count 64-72-66. Hematology consulted, recommends transfuse PRBC if hemoglobin less than 7 and platelets if less than 10. Plan: Follow hematology recommendations, will likely need bone marrow biopsy in the outpatient setting. Daily CBC. Neutropenia precautions. 5. Total bilirubin 1.7, AST 44, alkaline phosphatase 190. CTAP shows nodularity in the liver, possible cirrhosis. Hepatitis panel negative. Lipid panel within normal limits August 2018. Plan: Daily CMP. Needs adequate follow-up in the outpatient setting. 6. Stable. Plans: Continue aspirin as per hematology recommendations. DVT prophylaxis with heparin subcutaneously. 7. Likely secondary to chronic disease. CTA chest rules out PE. Plan: Continue to monitor. 8. Plan: Continue Synthroid. 9. BP 135/63. Plan: Continue lisinopril. Monitor vitals, adjust medications as necessary. Her C. diff infection has improved clinically. Hematology consulted for neutropenia. Continue antibiotics by mouth, ID on board. Patient is high risk for readmission, requesting to stay 1 more day. DC tomorrow. Pertinent Studies: Chest CTA, CT abdomen and pelvis, C. difficile. Patient Condition at Discharge: Serious Plan - Discharge Summary Discharge Rx Participant: No New Discharge Prescriptions: No Action Atorvastatin [Lipitor] 40 mg PO HS Levothyroxine Sodium [Synthroid] 137 mcg PO DAILY Glimepiride [Amaryl] 2 mg PO BID Tolterodine ER [Detrol LA] 4 mg PO DAILY HYDROcodone/APAP 10-325MG [[place] 10-325] 1 tab PO Q6H PRN PRN Reason: Pain Omeprazole [PriLOSEC] 20 mg PO AC-BID Prochlorperazine [Compazine] 10 mg PO Q6H PRN PRN Reason: Nausea Gabapentin [Neurontin] 300 mg PO HS Lisinopril [Zestril] 20 mg PO DAILY Ondansetron [Zofran] 4 mg PO Q6H PRN PRN Reason: Nausea Diphenox-Atrop 2.5-0.025 mg [Lomotil] 2 tab PO QID PRN PRN Reason: Loose Stool valACYclovir HCL [Valtrex] 1,000 mg PO DAILY PRN PRN Reason: OUTBREAK Cholestyramine (with Sugar) [Cholestyramine Powder] 4 gm PO HS Cholestyramine (with Sugar) [Questran] 4 gm PO BID #20 packet Aspirin 81 mg PO DAILY #30 chewable Sertraline [Zoloft] 100 mg PO BID Discharge Medication List Atorvastatin [Lipitor] 40 mg PO HS 02/10/16 [History] Levothyroxine Sodium [Synthroid] 137 mcg PO DAILY 08/17/16 [History] Glimepiride [Amaryl] 2 mg PO BID 12/19/16 [History] Tolterodine ER [Detrol LA] 4 mg PO DAILY 03/30/17 [History] Gabapentin [Neurontin] 300 mg PO HS 06/07/18 [History] HYDROcodone/APAP 10-325MG [[place] 10-325] 1 tab PO Q6H PRN 06/07/18 [History] Lisinopril [Zestril] 20 mg PO DAILY 06/07/18 [History] Omeprazole [PriLOSEC] 20 mg PO AC-BID 06/07/18 [History] Prochlorperazine [Compazine] 10 mg PO Q6H PRN 06/07/18 [History] Cholestyramine (with Sugar) [Cholestyramine Powder] 4 gm PO HS 09/11/18 [History] Diphenox-Atrop 2.5-0.025 mg [Lomotil] 2 tab PO QID PRN 09/11/18 [History] Ondansetron [Zofran] 4 mg PO Q6H PRN 09/11/18 [History] valACYclovir HCL [Valtrex] 1,000 mg PO DAILY PRN 09/11/18 [History] Aspirin 81 mg PO DAILY #30 chewable 09/17/18 [Rx] Cholestyramine (with Sugar) [Questran] 4 gm PO BID #20 packet 09/17/18 [Rx] Sertraline [Zoloft] 100 mg PO BID 10/10/18 [History] Follow up Appointment(s)/Referral(s): Obdulia Jasso MD [Primary Care Provider] - 1-2 days
[2018-10-16 08:29] LABS: African American GFR (CKD) >90 (>60 ml/min/1.73 sqM); Anion Gap 2 mmol/L; Blood Urea Nitrogen 4 mg/dL (7-17); Calcium 8.2 mg/dL (8.4-10.2); Carbon Dioxide 28 mmol/L (22-30); Chloride 111 mmol/L (98-107); Glucose 83 mg/dL (74-99); Potassium 4.1 mmol/L (3.5-5.1); Sodium 141 mmol/L (137-145)
[2018-10-16 08:42] LABS: HCT 30.5 % (34.0-46.0); HGB 9.8 gm/dL (11.4-16.0); MCH 33.4 pg (25.0-35.0); MCHC 32.2 g/dL (31.0-37.0); MCV 103.9 fL (80.0-100.0); Macrocytosis Slight; Mean Platelet Volume 8.7; RBC 2.94 m/uL (3.80-5.40); RDW 14.4 % (11.5-15.5)
[2018-10-16] MEDS: INSULIN ASPART (NovoLOG) 100 UNIT/ML VIAL SQ SCH ×4 (08:43→21:37)
[2018-10-16 08:50] LABS: WBC 0.9 k/uL (3.8-10.6)
[2018-10-16 08:51] LABS: Platelet Count 60 k/uL (150-450)
[2018-10-16] MEDS: HEPARIN SODIUM,PORCINE 5,000 UNIT/ML 1 ML VIAL SQ SCH ×4 (09:06→23:22)
[2018-10-16] MEDS: ASPIRIN 81 MG PO SCH (09:07)
[2018-10-16] MEDS: LISINOPRIL 20 MG TAB PO SCH (09:07)
[2018-10-16] MEDS: DICYCLOMINE 10 MG CAP PO SCH ×3 (09:07→21:37)
[2018-10-16] MEDS: POTASSIUM CHLORIDE ER 20 MEQ TAB.ER PO SCH ×2 (09:07→21:37)
[2018-10-16] MEDS: PANTOPRAZOLE 40 MG TABLET PO SCH ×2 (09:07→17:26)
[2018-10-16] MEDS: CHOLESTYRAMINE (WITH SUGAR) 4 GM PACKET PO SCH ×2 (09:08→21:37)
[2018-10-16] MEDS: SERTRALINE 100 MG TAB PO SCH ×2 (09:08→21:37)
[2018-10-16 09:59] LABS: Poikilocytosis (M) Present
[2018-10-16 11:49] LABS: Glucose,Whole Blood 163 mg/dL (75-99)
[2018-10-16] MEDS: FILGRASTIM-SNDZ 480 MCG/0.8 ML SYRINGE SQ SCH (14:54)
[2018-10-16 17:26] LABS: Glucose,Whole Blood 94 mg/dL (75-99)
--- NOTE | 2018-10-16 17:42 | PN ---
PROGRESS NOTE DATE OF SERVICE: 10/16/2018. REASON FOR FOLLOWUP: Recurrent C difficile colitis. INTERVAL HISTORY: The patient is currently afebrile. The patient is breathing comfortably. The lower abdominal pain has decreased in intensity. The patient did have 2 bowel movements which is slightly forming up. No nausea, no vomiting. No chest pain, shortness of breath or cough. PHYSICAL EXAMINATION: Blood pressure is 135/70 with a pulse of 78, temperature of 98. She is 94% on room air. General description is a middle-aged female lying in bed in no distress. Respiratory system: Unlabored breathing. Clear to auscultation anteriorly. Heart S1, S2. Regular rate and rhythm. ABDOMEN: Soft, no tenderness. LABS: The patient white count is down to 0.9. DIAGNOSTIC IMPRESSION AND PLAN: Patient admitted to the hospital with sepsis in a patient who did have a component of urinary tract infection, recurrent, this being her second episode. We will be recommending a tapering course of oral vancomycin along with increasing her yogurt and probiotic intake and close outpatient followup. Continue supportive care. MMODL / IJN: [id number] /
[2018-10-16 20:35] LABS: Glucose,Whole Blood 142 mg/dL (75-99)
[2018-10-16] MEDS: GABAPENTIN 300 MG CAP PO SCH (21:37)
[2018-10-16] MEDS: ATORVASTATIN 40 MG TAB PO SCH (21:37)
[2018-10-17] MEDS: LEVOTHYROXINE 137 MCG TAB PO SCH (05:53)
[2018-10-17] MEDS: MORPHINE SULFATE 4 MG/ML SYRINGE IVP PRN (05:53)
[2018-10-17] MEDS: VANCOMYCIN ORAL SOLUTION 250 MG/5 ML BOTTLE PO SCH ×2 (05:54→12:46)
[2018-10-17] MEDS: SODIUM CHLORIDE 0.9% 1,000 ML IV SCH ×2 (05:54→13:39)
[2018-10-17] MEDS: CHERRY FLAVOR 60 ML BOTTLE PO SCH ×2 (05:54→12:46)
[2018-10-17 06:59] LABS: Glucose,Whole Blood 121 mg/dL (75-99)
[2018-10-17] MEDS: INSULIN ASPART (NovoLOG) 100 UNIT/ML VIAL SQ SCH ×2 (07:32→12:49)
[2018-10-17] MEDS: POTASSIUM CHLORIDE ER 20 MEQ TAB.ER PO SCH (08:16)
[2018-10-17] MEDS: ASPIRIN 81 MG PO SCH (08:16)
[2018-10-17] MEDS: HEPARIN SODIUM,PORCINE 5,000 UNIT/ML 1 ML VIAL SQ SCH (08:16)
[2018-10-17] MEDS: LISINOPRIL 20 MG TAB PO SCH (08:17)
[2018-10-17] MEDS: PANTOPRAZOLE 40 MG TABLET PO SCH (08:17)
[2018-10-17] MEDS: CHOLESTYRAMINE (WITH SUGAR) 4 GM PACKET PO SCH (08:17)
[2018-10-17] MEDS: DICYCLOMINE 10 MG CAP PO SCH (08:17)
[2018-10-17 08:18] LABS: HCT 31.4 % (34.0-46.0); HGB 10.3 gm/dL (11.4-16.0); MCH 33.6 pg (25.0-35.0); MCHC 32.8 g/dL (31.0-37.0); MCV 102.5 fL (80.0-100.0); Macrocytosis Slight; Mean Platelet Volume 8.4; RBC 3.06 m/uL (3.80-5.40); RDW 15.1 % (11.5-15.5)
[2018-10-17] MEDS: FILGRASTIM-SNDZ 480 MCG/0.8 ML SYRINGE SQ SCH (08:22)
[2018-10-17 08:29] LABS: ALT 33 U/L (9-52); AST 32 U/L (14-36); African American GFR (CKD) >90 (>60 ml/min/1.73 sqM); Albumin 2.5 g/dL (3.5-5.0); Alkaline Phosphatase 194 U/L (38-126); Anion Gap 1 mmol/L; Blood Urea Nitrogen 5 mg/dL (7-17); Calcium 8.7 mg/dL (8.4-10.2); Carbon Dioxide 32 mmol/L (22-30); Chloride 108 mmol/L (98-107); Glucose 99 mg/dL (74-99); Potassium 4.4 mmol/L (3.5-5.1); Sodium 141 mmol/L (137-145); Total Bilirubin 1.1 mg/dL (0.2-1.3); Total Protein 4.4 g/dL (6.3-8.2)
[2018-10-17 08:42] LABS: Platelet Count 56 k/uL (150-450); WBC 1.4 k/uL (3.8-10.6)
[2018-10-17] MEDS: SERTRALINE 100 MG TAB PO SCH (08:42)
[2018-10-17 09:05] LABS: Band Neutrophils % 4 %; Eosinophils # (M) 0.08 k/uL (0-0.7); Lymphocytes # (M) 0.14 k/uL (1.0-4.8); Monocytes # (M) 0.35 k/uL (0-1.0); Neutrophils % (M) 55 %; Nucleated Red Blood Cells 2 /100 WBC (0-0); Total Cells Counted 100
--- NOTE | 2018-10-17 10:29 | P.DS ---
Providers Date of admission: 10/10/18 20:56 Expected date of discharge: 10/17/18 Attending physician: Jayde Mcgraw MD Consults: 10/10/18 20:57 Consult Physician Urgent Consulting Provider: Gael Alvarez Consult Reason/Comments: Oncological care Do you want consulting provider notified?: Yes 10/15/18 08:18 Consult Physician Stat Consulting Provider: Mariann Edmonds Consult Reason/Comments: C diff colitis Do you want consulting provider notified?: Yes Primary care physician: Obdulia Jasso Hospital Course: Discharge Diagnosis: C diff colitis with sepsis Neutropenia due to lymphoma, not currently on treatment Hypokalemia Anemia, chronic Factor V liden Hypothyroidism Hypertension Morbid obesity with BMI 42.2 Severe protein calorie malnutrition Hospital Course: Patient is a 57-year-old female with a history of intra-abdominal grade 2 follicular lymphoma with metastasis to the liver and lymph nodes with progression status post 3 cycles of chemo therapy and has not been able to get an additional cycle secondary to pancytopenia, morbid obesity, factor V Leiden, hypertension, dyslipidemia, and sleep apnea presented to the hospital with complaints of diarrhea. In the ER she underwent an extensive evaluation. She was found to have neutropenia and was started on broad-spectrum IV antibiotics until C. diff came back positive. Patient was then switched to oral vancomycin and the rest of antibiotics were stopped. She also found to be hypokalemic and this was replaced in the ER. She was admitted for further monitoring. Patient's initial heart rate was 97, T-max 101.9, and white blood cell count of 1.6. Lactic acid was negative. Blood cultures were negative. During her h ospital stay she had some abdominal cramping and Bentyl as added. Her diarrhea slowed down. Her diet was advanced and she was tolerating her diet. Infectious disease was consulted and recommended a tapering vancomycin dose. Oncology was consulted secondary to her neutropenia. She was started on G-CSF stimulators and her ANC on discharge was 800. Case discussed with oncology and they are in agreement with her discharge. She will follow up with Dr. Jasso in 1-2 days, Dr. Balderrama on 11/08 at 1 PM, and Dr. Edmonds in one week. She was instructed to ensure completion of her vancomycin taper. Patient seen and examined at bedside. Stool formed, abd pain improved, tolerating diet Vital signs reviewed and stable. General: non toxic, no distress, appears older than stated age, obese Derm: warm, dry Head: atraumatic, normocephalic, symmetric Eyes: EOMI, no lid lag, anicteric sclera Mouth: no lip lesion, mucus membranes moist Cardiovascular: S1S2 reg, no murmur, positive posterior tibial pulse bilateral, Lungs: CTA bilateral, no rhonchi, no rales , no accessory muscle use Abdominal: soft, nontender to palpation, no guarding, no appreciable organomegaly Ext: no gross muscle atrophy, trace edema, no contractures Neuro: CN II-XI grossly intact, no focal neuro deficits Psych: Alert, oriented, appropriate affect A total of 35 minutes of time were spent preparing this complex discharge summary . Pertinent Studies: CT abdomen and pelvis-mild prominence along the sigmoid colon, descending colon secondary to under distention versus colitis, diarrheal state, calcified structure of the soft tissue density in the central mesentery-stable. CTA chest-no evidence of PE Patient Condition at Discharge: Stable Plan - Discharge Summary Discharge Rx Participant: No New Discharge Prescriptions: New Vancomycin Oral Solution 250 mg PO DIRECTED #175 ml Continue Atorvastatin [Lipitor] 40 mg PO HS Levothyroxine Sodium [Synthroid] 137 mcg PO DAILY Glimepiride [Amaryl] 2 mg PO BID Tolterodine ER [Detrol LA] 4 mg PO DAILY HYDROcodone/APAP 10-325MG [[place] 10-325] 1 tab PO Q6H PRN PRN Reason: Pain Omeprazole [PriLOSEC] 20 mg PO AC-BID Prochlorperazine [Compazine] 10 mg PO Q6H PRN PRN Reason: Nausea Gabapentin [Neurontin] 300 mg PO HS Lisinopril [Zestril] 20 mg PO DAILY Ondansetron [Zofran] 4 mg PO Q6H PRN PRN Reason: Nausea valACYclovir HCL [Valtrex] 1,000 mg PO DAILY PRN PRN Reason: OUTBREAK Cholestyramine (with Sugar) [Cholestyramine Powder] 4 gm PO HS Cholestyramine (with Sugar) [Questran Packet] 4 gm PO BID #20 packet Aspirin 81 mg PO DAILY #30 chewable Sertraline [Zoloft] 100 mg PO BID Discontinued Diphenox-Atrop 2.5-0.025 mg [Lomotil] 2 tab PO QID PRN PRN Reason: Loose Stool Discharge Medication List Atorvastatin [Lipitor] 40 mg PO HS 02/10/16 [History] Levothyroxine Sodium [Synthroid] 137 mcg PO DAILY 08/17/16 [History] Glimepiride [Amaryl] 2 mg PO BID 12/19/16 [History] Tolterodine ER [Detrol LA] 4 mg PO DAILY 03/30/17 [History] Gabapentin [Neurontin] 300 mg PO HS 06/07/18 [History] HYDROcodone/APAP 10-325MG [[place] 10-325] 1 tab PO Q6H PRN 06/07/18 [History] Lisinopril [Zestril] 20 mg PO DAILY 06/07/18 [History] Omeprazole [PriLOSEC] 20 mg PO AC-BID 06/07/18 [History] Prochlorperazine [Compazine] 10 mg PO Q6H PRN 06/07/18 [History] Cholestyramine (with Sugar) [Cholestyramine Powder] 4 gm PO HS 09/11/18 [History] Ondansetron [Zofran] 4 mg PO Q6H PRN 09/11/18 [History] valACYclovir HCL [Valtrex] 1,000 mg PO DAILY PRN 09/11/18 [History] Aspirin 81 mg PO DAILY #30 chewable 09/17/18 [Rx] Cholestyramine (with Sugar) [Questran Packet] 4 gm PO BID #20 packet 09/17/18 [Rx] Sertraline [Zoloft] 100 mg PO BID 10/10/18 [History] Vancomycin Oral Solution 250 mg PO DIRECTED #175 ml 10/17/18 [Rx] Follow up Appointment(s)/Referral(s): Obdulia Jasso MD [Primary Care Provider] - 1-2 days Forrest Balderrama MD [STAFF PHYSICIAN] - 11/08/18 1:00 pm (This is for Rituxan infusion. Make f/u appt to see Dr. Balderrama after infusion. ) Mariann Edmonds MD [STAFF PHYSICIAN] - 1 Week Activity/Diet/Wound Care/Special Instructions: Carb consistent diet Activity as tolerated
[2018-10-17 11:31] LABS: Glucose,Whole Blood 136 mg/dL (75-99)
[2018-10-17 12:29] VITALS: BP 157/70; PULSE 62; RESP 17; TEMP 98.1
[2018-10-17 13:23] VITALS: BMI 42.2
--- NOTE | 2018-10-17 17:11 | PN ---
PROGRESS NOTE DATE OF SERVICE: 10/17/2018 REASON FOR FOLLOWUP: C difficile colitis, recurrent. INTERVAL HISTORY: The patient is currently afebrile. The patient has been breathing comfortably. Denies having any chest pain or any cough. No abdominal pain. Her diarrhea has improved. She has slightly formed stools. PHYSICAL EXAMINATION: Blood pressure is 157/70 with a pulse of 62, temperature 98.1. She is 100% on room air. General description is a middle-aged female in the bed in no distress. RESPIRATORY SYSTEM: Unlabored breathing. Clear to auscultation anteriorly. HEART: S1, S2. Regular rate and rhythm. ABDOMEN: Soft. No tenderness. LABS: Hemoglobin is 10.3, white count 1.4, BUN of 5, creatinine 0.69. DIAGNOSTIC IMPRESSION AND PLAN: Patient with recurrent Clostridium difficile colitis, this being her second episode. The patient at this time to continue p.o. vancomycin on a tapering course as advised earlier and close outpatient followup. Patient has been advised to increase her probiotic and yogurt intake to prevent recurrent C difficile colitis. Continue with supportive care. MMODL / IJN: [id number] /
--- NOTE | 2018-10-17 18:53 | P.PN ---
Subjective Progress Note Date: 10/17/18 Principal diagnosis: pancytopenia, known patient, Hx of treatment for non-Hodgkin's lymphoma In follow-up today patient is tolerating a diet, no diarrhea, fevers, nausea, vomiting, bleeding, independently ambulatory Objective - Vital Signs Vital signs: Vital Signs Temp 98.1 F 10/17/18 12:28 Pulse 62 10/17/18 12:28 Resp 17 10/17/18 12:28 BP 157/70 10/17/18 12:28 Pulse Ox 100 10/17/18 12:28 Intake & Output 10/16/18 10/17/18 10/17/18 18:59 06:59 18:59 Intake Total 1750 Balance 1750 Weight 111.584 kg Intake: Intake, IV Titration 800 Amount Sodium Chloride 0.9% 1, 800 000 ml @ 120 mls/hr IV . Q8H20M [facility] Rx#:[id number] Oral 950 Other: Voiding Method Toilet Toilet Toilet # Voids 4 2 # Bowel Movements 2 - Exam Well-developed, overweight, alert and oriented 4, no acute distress, respirations even and unlabored, skin is warm and dry, no lower extremity sw elling - Labs CBC & Chem 7: 10/17/18 07:48 10/17/18 07:48 Labs: Abnormal Lab Results - Last 24 Hours (Table) 10/16/18 10/17/18 10/17/18 Range/Units 20:34 06:59 07:48 WBC 1.4 L* (3.8-10.6) k/uL RBC 3.06 L (3.80-5.40) m/uL Hgb 10.3 L (11.4-16.0) gm/dL Hct 31.4 L (34.0-46.0) % MCV 102.5 H (80.0-100.0) fL Plt Count 56 L (150-450) k/uL Neutrophils # (Manual) 0.80 L (1.3-7.7) k/uL Lymphocytes # (Manual) 0.14 L (1.0-4.8) k/uL Nucleated RBCs 2 H (0-0) /100 WBC Chloride (98-107) mmol/L Carbon Dioxide (22-30) mmol/L BUN (7-17) mg/dL POC Glucose (mg/dL) 142 H 121 H (75-99) mg/dL Alkaline Phosphatase (38-126) U/L Total Protein (6.3-8.2) g/dL Albumin (3.5-5.0) g/dL 10/17/18 10/17/18 Range/Units 07:48 11:30 WBC (3.8-10.6) k/uL RBC (3.80-5.40) m/uL Hgb (11.4-16.0) gm/dL Hct (34.0-46.0) % MCV (80.0-100.0) fL Plt Count (150-450) k/uL Neutrophils # (Manual) (1.3-7.7) k/uL Lymphocytes # (Manual) (1.0-4.8) k/uL Nucleated RBCs (0-0) /100 WBC Chloride 108 H (98-107) mmol/L Carbon Dioxide 32 H (22-30) mmol/L BUN 5 L (7-17) mg/dL POC Glucose (mg/dL) 136 H (75-99) mg/dL Alkaline Phosphatase 194 H (38-126) U/L Total Protein 4.4 L (6.3-8.2) g/dL Albumin 2.5 L (3.5-5.0) g/dL Microbiology - Last 24 Hours (Table) 10/10/18 17:30 Blood Culture - Final Blood No Growth after 144 hours Assessment and Plan (1) C. difficile colitis Narrative/Plan: Treatment per Infectious Disease. Status: Acute Priority: High Code(s): A04.72 - ENTEROCOLITIS D/T CLOSTRIDIUM DIFFICILE, NOT SPCF RECUR SNOMED Code(s): 204032587 (2) Lymphoma Narrative/Plan: Patient's last treatment with Rituxan (monoclonal antibody) was in August of this year. There are plans to do another infusion of Rituxan at the end of this month. Status: Chronic Priority: Medium Code(s): C85.90 - NON-HODGKIN LYMPHOMA, UNSPECIFIED, UNSPECIFIED SITE SNOMED Code(s): 392210530 (3) Pancytopenia Narrative/Plan: WBC 1.4, absolute neutrophil count 800, hemoglobin 10.3, platelet count 56,000. Continue G-CSF while inpatient, no packed red blood cell or platelet transfusions necessary at this time. Pancytopenia has been persistent since chemotherapy. Exacerbated during times of acute illness. Status: Chronic Priority: Medium Code(s): D61.818 - OTHER PANCYTOPENIA SNOMED Code(s): 969751026 (4) Hypogammaglobulinemia Narrative/Plan: IgG level is less than 500. Typically she would receive immunoglobulin in fusion, no drug available. Pending in the future when available Status: Acute Priority: High Code(s): D80.1 - NONFAMILIAL HYPOGAMMAGLOBULINEMIA SNOMED Code(s): 185705266
== END 2018-10-17 13:05 | disposition home or self-care (01) | DRG 871 ==
LOC: EC 15:41 → 3NMEDONC 20:56
PROVIDERS: ADMIT Internal Medicine; ATTEND Internal Medicine
DX: A41.4 Sepsis due to anaerobes (principal); E43 Unspecified severe protein-calorie malnutrition; A04.71 Enterocolitis due to Clostridium difficile, recurrent; D61.818 Other pancytopenia; D68.51 Activated protein C resistance; D80.1 Nonfamilial hypogammaglobulinemia; N39.0 Urinary tract infection, site not specified; Z68.41 Body mass index [BMI] 40.0-44.9, adult; E66.01 Morbid (severe) obesity due to excess calories; E11.9 Type 2 diabetes mellitus without complications; E78.5 Hyperlipidemia, unspecified; E87.6 Hypokalemia; E89.0 Postprocedural hypothyroidism; G47.33 Obstructive sleep apnea (adult) (pediatric); I10 Essential (primary) hypertension; T45.1X5A Adverse effect of antineoplastic and immunosuppressive drugs, initial encounter; R74.8 Abnormal levels of other serum enzymes; Z79.82 Long term (current) use of aspirin; Z79.84 Long term (current) use of oral hypoglycemic drugs; Z79.890 Hormone replacement therapy; Z79.899 Other long term (current) drug therapy; Z87.440 Personal history of urinary (tract) infections; Z86.718 Personal history of other venous thrombosis and embolism; Z90.710 Acquired absence of both cervix and uterus; Z91.19 Patient's noncompliance with other medical treatment and regimen; Z90.49 Acquired absence of other specified parts of digestive tract; Z88.5 Allergy status to narcotic agent; Z88.8 Allergy status to other drugs, medicaments and biological substances; Z92.21 Personal history of antineoplastic chemotherapy; Z85.72 Personal history of non-Hodgkin lymphomas; Z82.49 Family history of ischemic heart disease and other diseases of the circulatory system; Z83.3 Family history of diabetes mellitus; Z84.1 Family history of disorders of kidney and ureter; Z80.9 Family history of malignant neoplasm, unspecified
CPT/HCPCS: 36415; 71275; 74177; 80048; 80053; 80074; 81001; 82784; 83605; 83690; 83735; 84132; 85025; 85379; 85610; 85730; 87040; 87324; 96361; 96365; 96366; 96375; 96376; 99285

== ENCOUNTER 2018-11-17 12:43 | Inpatient (IN) | payer MEDICARE ==
[2018-11-17] MEDS ORDERED: SODIUM CHLORIDE 0.9% 1,000 ML IV STA (12:56)
[2018-11-17] MEDS ORDERED: PANTOPRAZOLE 40 MG/10 ML VIAL IVP STA (12:56)
[2018-11-17] MEDS ORDERED: MORPHINE SULFATE 4 MG/ML SYRINGE IVP STA (13:21)
[2018-11-17] MEDS ORDERED: ONDANSETRON 4 MG/2 ML VIAL IVP STA (13:21)
[2018-11-17] MEDS ORDERED: ACETAMINOPHEN TAB 325 MG TAB PO STA (13:23)
--- NOTE | 2018-11-17 13:41 | ED ---
Abdominal Pain HPI - General Chief Complaint: Abdominal Pain Stated Complaint: ABDOMINAL PAIN, DIARRHEA Time Seen by Provider: 11/17/18 12:56 Source: patient, RN notes reviewed Mode of arrival: ambulatory Limitations: no limitations - History of Present Illness Initial Comments: 58-year-old female presents emergency Department with multiple complaints. Primary complaint is abdominal pain, diarrhea or black stools. Patient recently with diagnosis C. diff not on any current antibiotics. Patient states that she was inpatient. Patient states that her stools turn guaiac and she's had increase abdominal pain cramping. She does take a daily aspirin. Patient also states that she has a history of non-Hodgkin's lymphoma and was going for transfusion and which she is not exactly sure the transfusion was which she states that her blood counts were too low and they did not proceed with this. Patient does see Dr. Balderrama for her oncologist. She denies any chest pain or shortness of breath. Patient states she feels that her lymphoma is coming back. Patient denies any current dysuria or hematuria. She does admit to some nausea. - Related Data Home Medications Medication Instructions Recorded Confirmed Atorvastatin [Lipitor] 40 mg PO HS 02/10/16 11/17/18 Levothyroxine Sodium [Synthroid] 137 mcg PO DAILY 08/17/16 11/17/18 Glimepiride [Amaryl] 2 mg PO BID 12/19/16 11/17/18 Tolterodine ER [Detrol LA] 4 mg PO DAILY 03/30/17 11/17/18 Gabapentin [Neurontin] 300 mg PO HS 06/07/18 11/17/18 HYDROcodone/APAP 10-325MG [[place] 1 tab PO Q6H PRN 06/07/18 11/17/18 10-325] Lisinopril [Zestril] 20 mg PO DAILY 06/07/18 11/17/18 Omeprazole [PriLOSEC] 20 mg PO AC-BID 06/07/18 11/17/18 Prochlorperazine [Compazine] 10 mg PO Q6H PRN 06/07/18 11/17/18 Ondansetron [Zofran] 4 mg PO Q6H PRN 09/11/18 11/17/18 valACYclovir HCL [Valtrex] 1,000 mg PO TID 09/11/18 11/17/18 Sertraline [Zoloft] 200 mg PO DAILY 10/10/18 11/17/18 Diphenox-Atrop 2.5-0.025 mg 1 tab PO QID 11/17/18 11/17/18 [Lomotil] Nystatin [Nystop] 1 applic TOPICAL BID 11/17/18 11/17/18 Rivaroxaban [Xarelto] 20 mg PO DAILY 11/17/18 11/17/18 Previous Rx's Medication Instructions Recorded Aspirin 81 mg PO DAILY #30 chewable 09/17/18 Cholestyramine (with Sugar) 4 gm PO BID #60 packet 10/17/18 [Questran Packet] Allergies Allergy/AdvReac Type Severity Reaction Status Date / Time Anesthetics - Amide Type AdvReac Nausea & Verified 11/17/18 13:34 Vomiting & Diarrhea Anesthetics - Jonna Type- AdvReac Nausea & Verified 11/17/18 13:34 Parabens Vomiting & Diarrhea oxycodone [From OxyContin] AdvReac Nausea & Verified 11/17/18 13:34 Vomiting Review of Systems ROS Statement: Those systems with pertinent positive or pertinent negative responses have been documented in the HPI. ROS Other: All systems not noted in ROS Statement are negative. 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 History of Any Multi-Drug Resistant Organisms: C-DIFF Date of last positivie culture/infection: 09/11/18 MDRO Source:: stool Past Surgical History: Adenoidectomy, Appendectomy, Back Surgery, Cholecystectomy, Hysterectomy, Orthopedic Surgery, Tonsillectomy Additional Past Surgical History / Comment(s): Recent abdominal mass biopsy x 2, BMA, EGD/colonoscopy at [facility], bilateral carpal tunnel release, thyroidectomy (one tiny piece unable to remove), ORIF rt ankle, stents in LLE/vascular stent, cervical surgery C4,C6, thyroidectomy Past Anesthesia/Blood Transfusion Reactions: Postoperative Nausea & Vomiting (PONV) Additional Past Anesthesia/Blood Transfusion Reaction / Comment(s): blood transfusion(December 2015) "pt stated an hour after transfusion became very nauseated and had quit a bit of vomiting" Past Psychological History: No Psychological Hx Reported Smoking Status: Never smoker Past Alcohol Use History: None Reported Past Drug Use History: None Reported - Past Family History Mother Family Medical History: Diabetes Mellitus, Renal Disease Additional Family Medical History / Comment(s): Mother of kidney failure at the age of 69yrs. Father Family Medical History: Diabetes Mellitus Additional Family Medical History / Comment(s): Father of a "sugar coma" when he was 72 yrs old. Brother(s) Family Medical History: Cancer Sister(s) Family Medical History: Myocardial Infarction (ME) Additional Family Medical History / Comment(s): Patient has 3 sisters and 2 of them are diabetic. Son(s) Family Medical History: No Reported History (Patient has 4 sons no major medical problems) Additional Family Medical History / Comment(s): Patient has 4 sons with no major medical problems. Daughter(s) Family Medical History: Deep Vein Thrombosis (DVT) Additional Family Medical History / Comment(s): Patient has a daughter with DVT. General Exam Limitations: no limitations General appearance: alert, in no apparent distress Head exam: Present: atraumatic, normocephalic, normal inspection Eye exam: Present: normal appearance, PERRL, EOMI. Absent: scleral icterus, conjunctival injection, periorbital swelling Neck exam: Present: normal inspection. Absent: tenderness, meningismus, lymphadenopathy Respiratory exam: Present: normal lung sounds bilaterally. Absent: respiratory distress, wheezes, rales, rhonchi, stridor Cardiovascular Exam: Present: regular rate, normal rhythm, normal heart sounds. Absent: systolic murmur, diastolic murmur, rubs, gallop, clicks GI/Abdominal exam: Present: soft, tenderness, normal bowel sounds. Absent: distended, guarding, rebound, rigid Back exam: Absent: CVA tenderness (R), CVA tenderness (L) Neurological exam: Present: alert, oriented X3, CN II-XII intact Skin exam: Present: warm, dry, intact, normal color. Absent: rash Course Vital Signs 11/17/18 12:51 Temperature 100.1 F H Pulse Rate 85 Respiratory 18 Rate Blood Pressure 168/74 O2 Sat by Pulse 99 Oximetry Medical Decision Making - Medical Decision Making 58-year-old female presented from for abdominal pain, fevers, chills and diarrhea. Patient is Hemoccult negative though she complains of black tarry stools. Still concerning for GI bleed. Patient was given Protonix. Patient does have a white count of 0.6 with a history of non-Hodgkin's lymphoma. Patient is febrile, CT shows worsening colitis will be admitted at this time. - Lab Data Result diagrams: 11/17/18 13:17 11/17/18 13:17 Lab Results 11/17/18 11/17/18 11/17/18 Range/Units 13:17 13:17 13:17 WBC 0.6 L* (3.8-10.6) k/uL RBC 3.27 L (3.80-5.40) m/uL Hgb 11.1 L (11.4-16.0) gm/dL Hct 33.2 L (34.0-46.0) % MCV 101.5 H (80.0-100.0) fL MCH 34.0 (25.0-35.0) pg MCHC 33.5 (31.0-37.0) g/dL RDW 15.3 (11.5-15.5) % Plt Count 54 L (150-450) k/uL Differential Comment Manual Slide Review Performed Macrocytosis Slight PT (9.0-12.0) sec INR (<1.2) APTT (22.0-30.0) sec Sodium 139 (137-145) mmol/L Potassium 3.2 L (3.5-5.1) mmol/L Chloride 106 (98-107) mmol/L Carbon Dioxide 25 (22-30) mmol/L Anion Gap 8 mmol/L BUN 11 (7-17) mg/dL Creatinine 0.63 (0.52-1.04) mg/dL Est GFR (CKD-EPI)AfAm >90 (>60 ml/min/1.73 sqM) Est GFR (CKD-EPI)NonAf >90 (>60 ml/min/1.73 sqM) Glucose 135 H (74-99) mg/dL Plasma Lactic Acid Shaka 1.4 (0.7-2.0) mmol/L Calcium 8.2 L (8.4-10.2) mg/dL Total Bilirubin 2.2 H (0.2-1.3) mg/dL AST 62 H (14-36) U/L ALT 37 (9-52) U/L Alkaline Phosphatase 216 H (38-126) U/L Total Protein 5.2 L (6.3-8.2) g/dL Albumin 3.0 L (3.5-5.0) g/dL Amylase <30 L (30-110) U/L Lipase 56 (23-300) U/L Urine Color Urine Appearance (Clear) Urine pH (5.0-8.0) Ur Specific [place] (1.001-1.035) Urine Protein (Negative) Urine Glucose (UA) (Negative) Urine Ketones (Negative) Urine Blood (Negative) Urine Nitrite (Negative) Urine Bilirubin (Negative) Urine Urobilinogen (<2.0) mg/dL Ur Leukocyte Esterase (Negative) Stool Occult Blood (Negative) 11/17/18 11/17/18 11/17/18 Range/Units 13:17 14:40 14:59 WBC (3.8-10.6) k/uL RBC (3.80-5.40) m/uL Hgb (11.4-16.0) gm/dL Hct (34.0-46.0) % MCV (80.0-100.0) fL MCH (25.0-35.0) pg MCHC (31.0-37.0) g/dL RDW (11.5-15.5) % Plt Count (150-450) k/uL Differential Comment Manual Slide Review Macrocytosis PT 11.0 (9.0-12.0) sec INR 1.0 (<1.2) APTT 25.5 (22.0-30.0) sec Sodium (137-145) mmol/L Potassium (3.5-5.1) mmol/L Chloride (98-107) mmol/L Carbon Dioxide (22-30) mmol/L Anion Gap mmol/L BUN (7-17) mg/dL Creatinine (0.52-1.04) mg/dL Est GFR (CKD-EPI)AfAm (>60 ml/min/1.73 sqM) Est GFR (CKD-EPI)NonAf (>60 ml/min/1.73 sqM) Glucose (74-99) mg/dL Plasma Lactic Acid Shaka (0.7-2.0) mmol/L Calcium (8.4-10.2) mg/dL Total Bilirubin (0.2-1.3) mg/dL AST (14-36) U/L ALT (9-52) U/L Alkaline Phosphatase (38-126) U/L Total Protein (6.3-8.2) g/dL Albumin (3.5-5.0) g/dL Amylase (30-110) U/L Lipase (23-300) U/L Urine Color Yellow Urine Appearance Clear (Clear) Urine pH 6.5 (5.0-8.0) Ur Specific [place] 1.012 (1.001-1.035) Urine Protein Negative (Negative) Urine Glucose (UA) Negative (Negative) Urine Ketones Negative (Negative) Urine Blood Negative (Negative) Urine Nitrite Negative (Negative) Urine Bilirubin Negative (Negative) Urine Urobilinogen 3.0 (<2.0) mg/dL Ur Leukocyte Esterase Negative (Negative) Stool Occult Blood Negative (Negative) Disposition Clinical Impression: Colitis, Fever, Pancytopenia, Non-Hodgkin lymphoma, Diarrhea, Melena, Abdominal pain Disposition: ADMITTED IP TO THIS HOSP Condition: Fair Referrals: Obdulia Jasso MD [Primary Care Provider] - 1-2 days
[2018-11-17 13:47] LABS: Partial Thromboplastin Time 25.5 sec (22.0-30.0)
[2018-11-17 13:51] LABS: HCT 33.2 % (34.0-46.0); HGB 11.1 gm/dL (11.4-16.0); MCHC 33.5 g/dL (31.0-37.0); MCV 101.5 fL (80.0-100.0); Macrocytosis Slight; Mean Platelet Volume 9.4; RBC 3.27 m/uL (3.80-5.40); RDW 15.3 % (11.5-15.5)
[2018-11-17 13:56] LABS: ALT 37 U/L (9-52); AST 62 U/L (14-36); African American GFR (CKD) >90 (>60 ml/min/1.73 sqM); Alkaline Phosphatase 216 U/L (38-126); Amylase <30 U/L (30-110); Anion Gap 8 mmol/L; Blood Urea Nitrogen 11 mg/dL (7-17); Calcium 8.2 mg/dL (8.4-10.2); Carbon Dioxide 25 mmol/L (22-30); Chloride 106 mmol/L (98-107); Glucose 135 mg/dL (74-99); Lipase 56 U/L (23-300); Potassium 3.2 mmol/L (3.5-5.1); Sodium 139 mmol/L (137-145); Total Bilirubin 2.2 mg/dL (0.2-1.3); Total Protein 5.2 g/dL (6.3-8.2)
[2018-11-17 14:00] LABS: WBC 0.6 k/uL (3.8-10.6)
[2018-11-17 14:23] LABS: Platelet Count 54 k/uL (150-450)
[2018-11-17 14:50] LABS: Appearance,Urine Clear (Clear); Bilirubin,Urine Negative (Negative); Blood,Urine Negative (Negative); Color,Urine Yellow; Glucose,Urine (UA) Negative (Negative); Ketones,Urine Negative (Negative); Leukocyte Esterase,Urine Negative (Negative); Nitrite,Urine Negative (Negative); PH, Urine 6.5 (5.0-8.0); Protein,Urine Negative (Negative); Specific Gravity,Urine 1.012 (1.001-1.035)
--- NOTE | 2018-11-17 14:50 | CT ---
EXAMINATION TYPE: CT abdomen pelvis w con DATE OF EXAM: 11/17/2018 COMPARISON: 10/10/2018 HISTORY: Pain CT DLP: mGycm Automated exposure control for dose reduction was used. TECHNIQUE: Helical acquisition of images was performed from the lung bases through the pelvis. CONTRAST: Performed and , patient injected with mL of . The contrast was Isovue 100 mL. FINDINGS: Lung bases are clear. There is no pleural effusion. Heart appears slightly enlarged.. There is no per icardial effusion. Spleen is enlarged and measures 14 cm. There is mild dilation of the extrahepatic bile ducts. Stomach appears normal. Gallbladder appears absent. There is a subtle 2 cm hypodense focus in the superior l ateral right lobe of the liver. There is no evidence of a pancreatic mass. There is no adrenal mass. Kidneys show satisfactory contrast opacification. There is no hydronephrosi s. There is 3.5 cm cortical cyst posterior upper pole left kidney. Ureters are not dilated. Bladder d istends smoothly. There is small amount of free fluid in the pelvis. There is stent in the left lavern c vein. There is no inguinal hernia. There is some fat stranding around the sigmoid colon with mild wall thic kening. There is infiltrative mass at the root of the small bowel mesentery that measures 4 x 4 cm. There are some retroperitoneal varicose veins bilaterally and more on the left side. There is small amount of fluid in the left paracolic gutter. There is no free air. There is no evidence of bowel obstruction. Lumbar spine appears intact. Bony pe lvis is intact. IMPRESSION: THERE IS PARTLY CALCIFIED INFILTRATIVE MASS AT THE ROOT OF THE SMALL BOWEL MESENTERY THAT IS NOT SULLIVAN GED COMPARED TO LAST EXAM. LOW-DENSITY LIVER LESION UNCHANGED COMPARED TO LAST EXAM. RETROPERITONEAL VARICOSE VEINS. THERE IS INFLAMMATORY CHANGES AROUND THE SIGMOID COLON WITH WALL THICKENING AND FAT STRANDING AND MIN IMAL FLUID THAT IS INCREASED COMPARED TO LAST EXAM AND CONSISTENT WITH COLITIS.
[2018-11-17] MEDS ORDERED: metroNIDAZOLE-NS PMX 500 MG in SALINE 1 100ML.BAG IVPB STA (15:17)
[2018-11-17] MEDS ORDERED: LEVOFLOXACIN 750MG-D5W PMX 750 MG in DEXTROSE/WATER 1 150ML.BAG IVPB STA (15:17)
[2018-11-17] MEDS ORDERED: NALOXONE 0.4 MG/ML 1 ML VIAL IV PRN (15:19)
[2018-11-17] MEDS ORDERED: ONDANSETRON 4 MG/2 ML VIAL IVP PRN (15:19)
[2018-11-17] MEDS: SODIUM CHLORIDE 0.9% 1,000 ML IV SCH (15:46)
[2018-11-17] MEDS ORDERED: LEVOFLOXACIN 750MG-D5W PMX 750 MG in DEXTROSE/WATER 1 150ML.BAG IVPB SCH (17:30)
[2018-11-17] MEDS: ACETAMINOPHEN TAB 325 MG TAB PO PRN ×2 (17:41→21:51)
[2018-11-17] MEDS: HYDROcodone/APAP 10-325MG 1 EACH TAB PO PRN (17:41)
--- NOTE | 2018-11-17 17:52 | P.HPIM ---
History of Present Illness H&P Date: 11/17/18 Chief Complaint: C. diff colitis, sepsis 58-year-old female with PMH of mesenteric cancer, factor V [place], hypertension, hyperlipidemia, sleep apnea presents to the ED for abdominal pain. Patient reports that the abdominal pain started on Sunday, located in her bilateral lower abdomen. Patient reports that the pain was initially intermittent and came in waves. Patient describes the pain as twisting in nature, 10 out of 10 in severity. Patient states that the pain occasionally goes around to her right back. Patient reports intense nausea but no vomiting over this time. Patient also reports liquid diarrhea, black, very foul smelling since Sunday. She also reports some fever and chills during this time. Patient also complains of a frontal headache, described as a tight band. She denies any cough, chest pain, shortness of breath or any changes with urination. She does report a low appetite. She denies any dizziness, numbness/weakness/tingling of the extremities. In the ED, patient was found to have a T-max of 101.7. Vital signs were otherwise stable. CBC showed the patient was leukopenic with a WBC count of 0.6. She had a hemoglobin of 11.1 and platelet count of 54. CMP showed potassium of 3.2, glucose of 135, calcium of 8.2, total bilirubin of 2.2, AST of 62 and alkaline phosphatase of 216. Lactic acid was negative. Amylase and lipase was negative. Urinalysis was negative. T of the abdomen and pelvis showed inflammatory changes around the sigmoid colon with wall thickening, consistent with colitis. Review of Systems Pertinent positives and negatives as discussed in HPI, a complete review of systems was performed and all other systems are negative. 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 History of Any Multi-Drug Resistant Organisms: C-DIFF Date of last positivie culture/infection: 09/11/18 MDRO Source:: stool Past Surgical History: Adenoidectomy, Appendectomy, Back Surgery, Cholecystectomy, Hysterectomy, Orthopedic Surgery, Tonsillectomy Additional Past Surgical History / Comment(s): Recent abdominal mass biopsy x 2, BMA, EGD/colonoscopy at [facility], bilateral carpal tunnel release, thyroidectomy (one tiny piece unable to remove), ORIF rt ankle, stents in LLE/vascular stent, cervical surgery C4,C6, thyroidectomy Past Anesthesia/Blood Transfusion Reactions: Postoperative Nausea & Vomiting (PONV) Additional Past Anesthesia/Blood Transfusion Reaction / Comment(s): blood transfusion(December 2015) "pt stated an hour after transfusion became very nauseated and had quit a bit of vomiting" Past Psychological History: No Psychological Hx Reported Smoking Status: Never smoker Past Alcohol Use History: None Reported Past Drug Use History: None Reported - Past Family History Mother Family Medical History: Diabetes Mellitus, Renal Disease Additional Family Medical History / Comment(s): Mother of kidney failure at the age of 69yrs. Father Family Medical History: Diabetes Mellitus Additional Family Medical History / Comment(s): Father of a "sugar coma" when he was 72 yrs old. Brother(s) Family Medical History: Cancer Sister(s) Family Medical History: Myocardial Infarction (MS) Additional Family Medical History / Comment(s): Patient has 3 sisters and 2 of them are diabetic. Son(s) Family Medical History: No Reported History (Patient has 4 sons no major medical problems) Additional Family Medical History / Comment(s): Patient has 4 sons with no major medical problems. Daughter(s) Family Medical History: Deep Vein Thrombosis (DVT) Additional Family Medical History / Comment(s): Patient has a daughter with DVT. Medications and Allergies Home Medications Medication Instructions Recorded Confirmed Type Atorvastatin [Lipitor] 40 mg PO HS 02/10/16 11/17/18 History Levothyroxine Sodium [Synthroid] 137 mcg PO DAILY 08/17/16 11/17/18 History Glimepiride [Amaryl] 2 mg PO BID 12/19/16 11/17/18 History Tolterodine ER [Detrol LA] 4 mg PO DAILY 03/30/17 11/17/18 History Gabapentin [Neurontin] 300 mg PO HS 06/07/18 11/17/18 History HYDROcodone/APAP 10-325MG [[place] 1 tab PO Q6H PRN 06/07/18 11/17/18 History 10-325] Lisinopril [Zestril] 20 mg PO DAILY 06/07/18 11/17/18 History Omeprazole [PriLOSEC] 20 mg PO AC-BID 06/07/18 11/17/18 History Prochlorperazine [Compazine] 10 mg PO Q6H PRN 06/07/18 11/17/18 History Ondansetron [Zofran] 4 mg PO Q6H PRN 09/11/18 11/17/18 History valACYclovir HCL [Valtrex] 1,000 mg PO TID 09/11/18 11/17/18 History Aspirin 81 mg PO DAILY #30 chewable 09/17/18 11/17/18 Rx Sertraline [Zoloft] 200 mg PO DAILY 10/10/18 11/17/18 History Cholestyramine (with Sugar) 4 gm PO BID #60 packet 10/17/18 11/17/18 Rx [Questran Packet] Diphenox-Atrop 2.5-0.025 mg 1 tab PO QID 11/17/18 11/17/18 History [Lomotil] Nystatin [Nystop] 1 applic TOPICAL BID 11/17/18 11/17/18 History Rivaroxaban [Xarelto] 20 mg PO DAILY 11/17/18 11/17/18 History Allergies Allergy/AdvReac Type Severity Reaction Status Date / Time Anesthetics - Amide Type AdvReac Nausea & Verified 11/17/18 13:34 Vomiting & Diarrhea Anesthetics - Jonna Type- AdvReac Nausea & Verified 11/17/18 13:34 Parabens Vomiting & Diarrhea oxycodone [From OxyContin] AdvReac Nausea & Verified 11/17/18 13:34 Vomiting Physical Exam Vitals: Vital Signs Temp Pulse Resp BP Pulse Ox 11/17/18 15:27 98.7 F 75 18 161/76 98 11/17/18 12:51 100.1 F H 85 18 168/74 99 Intake and Output 11/17/18 11/17/18 11/17/18 06:59 14:59 22:59 Other: Weight 112.037 kg General: [non toxic], [moderate distress], [appears at stated age] Derm: [warm], [dry] Head: [atraumatic], [normocephalic], [symmetric] Eyes: [EOMI], [no lid lag], [anicteric sclera] Mouth: [no lip lesion], [mucus membranes moist] Cardiovascular: [S1S2 reg], [no murmur], [positive DP pulse bilateral] Lungs: [CTA bilateral], [no rhonchi, no rales] , [no accessory muscle use] Abdominal: [soft], [tenderness to palpation in the bilateral lower quadrants without rebound], [no guarding], [no appreciable organomegaly] Ext: [no gross muscle atrophy], [no edema], [no contractures] Neuro: [ CN II-XI grossly intact], [no focal neuro deficits] Psych: [Alert], [oriented], [appropriate affect] Results CBC & Chem 7: 11/17/18 13:17 11/17/18 13:17 Labs: Abnormal Lab Results - Last 24 Hours (Table) 11/17/18 11/17/18 Range/Units 13:17 13:17 WBC 0.6 L* (3.8-10.6) k/uL RBC 3.27 L (3.80-5.40) m/uL Hgb 11.1 L (11.4-16.0) gm/dL Hct 33.2 L (34.0-46.0) % MCV 101.5 H (80.0-100.0) fL Plt Count 54 L (150-450) k/uL Potassium 3.2 L (3.5-5.1) mmol/L Glucose 135 H (74-99) mg/dL Calcium 8.2 L (8.4-10.2) mg/dL Total Bilirubin 2.2 H (0.2-1.3) mg/dL AST 62 H (14-36) U/L Alkaline Phosphatase 216 H (38-126) U/L Total Protein 5.2 L (6.3-8.2) g/dL Albumin 3.0 L (3.5-5.0) g/dL Amylase <30 L (30-110) U/L Thrombosis Risk Factor Assmnt - Choose All That Apply Each Factor Represents 1 point: Age 41-60 years, Obesity (BMI >25) Each Risk Factor Represents 2 Points: Malignancy Thrombosis Risk Factor Assessment Total Risk Factor Score: 4 Thrombosis Risk Factor Assessment Level: Moderate Risk Assessment and Plan Assessment: Assessment and Plan Sepsis due to C. diff colitis C. diff colitis with immunocompromise state Hypokalemia Bicytopenia Elevated liver enzymes Factor V Leiden Hypothyroidism Hypertension Initially met septic criteria (T-max 101.7F, leukopenia with WBC count of 0.6, positive source of infection). Lactic acid negative. C. diff positive. UA negative. Plan: Continue Vancomycin by mouth. Started on Levofloxacin and Flagyl IV for concerns of colitis. Continue normal saline at 75 mL/h. Follow blood cultures. Follow ID consultation. Likely due to immunocompromise state from chemotherapy. CT abdomen and pelvis show infiltrative mass at the root of the small bowel mesentery, low density liver lesion, prominence of the sigmoid colon. C. diff positive. Plan: Continue vancomycin by mouth. Zofran as needed for nausea or vomiting. Continue P rotonix twice a day. Continue normal saline at 75 mL/h. Morphine as needed for pain control. Contact precautions. Potassium 3.2. Likely secondary to diarrhea. Plan: Replace via protocol. Daily CMP. Patient leukopenic to 0.6, platelet count 54. Plan: Follow hematology consultation. Daily CBC. Leukopenic precautions. Transfuse platelets if less than 10,000 or acute bleed. Total bilirubin 2.2, AST 62, alkaline phosphatase 216. Hepatitis panel negative. Lipid panel within normal limits August 2018. Plan: Daily CMP. Needs adequate follow-up in the outpatient setting. Continue cholestyramine. Stable. Plans: Continue aspirin and Xarelto. Plan: Continue Synthroid. BP 134/61. Plan: Continue lisinopril. Monitor vitals, adjust medications as necessary. DVT prophylaxis: [Xarelto] Discussed with: [Patient] Anticipated discharge: [3-5 days] Anticipated discharge place: [Home] A total of [45] minutes was spent on the care of this complex patient more than 50% of the time was spent in counseling and care coordination. Patient names her daughter Monica decision-maker in the case that she can make decisions for herself. Patient elects to be DO NOT RESUSCITATE and DO NOT INTUBATE at this time. Patient admitted for sepsis secondary to C. diff colitis. Started on antibiotics, infectious disease consulted. Oncology consulted for continuity of care. She is pending clinical improvement.
[2018-11-17] MEDS: CHERRY FLAVOR 60 ML BOTTLE PO SCH ×2 (19:45→23:25)
[2018-11-17] MEDS: VANCOMYCIN ORAL SOLUTION 250 MG/5 ML BOTTLE PO SCH ×2 (19:45→23:25)
[2018-11-17] MEDS: valACYclovir HCL 1,000 MG TABLET PO SCH (21:33)
[2018-11-17] MEDS: GABAPENTIN 300 MG CAP PO SCH (21:33)
[2018-11-17] MEDS: CHOLESTYRAMINE (WITH SUGAR) 4 GM PACKET PO SCH (21:33)
[2018-11-17] MEDS: ATORVASTATIN 40 MG TAB PO SCH (21:33)
[2018-11-17 21:51] LABS: Glucose,Whole Blood 82 mg/dL (75-99)
[2018-11-17] MEDS: INSULIN ASPART (NovoLOG) 100 UNIT/ML VIAL SQ SCH (21:51)
[2018-11-17] MEDS: metroNIDAZOLE-NS PMX 500 MG in SALINE 1 100ML.BAG IVPB SCH (23:25)
[2018-11-18] MEDS: SODIUM CHLORIDE 0.9% 1,000 ML IV SCH ×2 (03:33→20:13)
[2018-11-18] MEDS: LEVOTHYROXINE 137 MCG TAB PO SCH (05:24)
[2018-11-18] MEDS: VANCOMYCIN ORAL SOLUTION 250 MG/5 ML BOTTLE PO SCH ×4 (05:24→23:16)
--- NOTE | 2018-11-18 06:39 | P.CONS ---
History of Present Illness - Reason for Consult Consult date: 11/17/18 Fever and colitis Requesting physician: Eze Francis - Chief Complaint Abdominal pain and diarrhea x few days - History of Present Illness Patient is 58-year-old female well known to my service in this patient who did have history of recurrent C. diff colitis patient has been presenting to the ER at [facility] with abdominal pain and diarrhea that has been going on for a few days before presenting to the hospital patient did have multiple loose stools per day. No blood or mucus in the stool she'll be complaining of pain in the lower abdominal area more of a crampy 4-6 out of 10 and no radiation the patient felt nauseated but no vomiting patient had been running a fever with the symptoms the patient presented to hospital on arrival to the hospital patient noticed to be leukopenic she did have fever she did have a CT of abdominal pelvis with evidence of colitis patient was started on Levaquin and Flagyl subsequently a stool for C. 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 to prolong ed hematologic toxicity Thrombocytopenia, Factor V Leiden Homozgous, DVT L lower extremity with stenting, 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 History of Any Multi-Drug Resistant Organisms: C-DIFF Year Discovered:: 09/11/18 MDRO Source:: stool Past Surgical History: Adenoidectomy, Appendectomy, Back Surgery, Cholecystectomy, Hysterectomy, Orthopedic Surgery, Tonsillectomy Additional Past Surgical History / Comment(s): Recent abdominal mass biopsy x 2, BMA, EGD/colonoscopy at [facility], bilateral carpal tunnel release, thyroidectomy (one tiny piece unable to remove), ORIF rt ankle, stents in LLE/vascular stent, cervical surgery C4,C6, thyroidectomy Past Anesthesia/Blood Transfusion Reactions: Postoperative Nausea & Vomiting (PONV) Additional Past Anesthesia/Blood Transfusion Reaction / Comm: blood transfusion(December 2015) "pt stated an hour after transfusion became very nauseated and had quit a bit of vomiting" Past Psychological History: No Psychological Hx Reported Smoking Status: Never smoker Past Alcohol Use History: None Reported Past Drug Use History: None Reported - Past Family History Mother Family Medical History: Diabetes Mellitus, Renal Disease Additional Family Medical History / Comment(s): Mother of kidney failure at the age of 69yrs. Father Family Medical History: Diabetes Mellitus Additional Family Medical History / Comment(s): Father of a "sugar coma" when he was 72 yrs old. Brother(s) Family Medical History: Cancer Sister(s) Family Medical History: Myocardial Infarction ([place]) Additional Family Medical History / Comment(s): Patient has 3 sisters and 2 of them are diabetic. Son(s) Family Medical History: No Reported History (Patient has 4 sons no major medical problems) Additional Family Medical History / Comment(s): Patient has 4 sons with no major medical problems. Daughter(s) Family Medical History: Deep Vein Thrombosis (DVT) Additional Family Medical History / Comment(s): Patient has a daughter with DVT. Medications and Allergies Home Medications Medication Instructions Recorded Confirmed Type Atorvastatin [Lipitor] 40 mg PO HS 02/10/16 11/17/18 History Levothyroxine Sodium [Synthroid] 137 mcg PO DAILY 08/17/16 11/17/18 History Glimepiride [Amaryl] 2 mg PO BID 12/19/16 11/17/18 History Tolterodine ER [Detrol LA] 4 mg PO DAILY 03/30/17 11/17/18 History Gabapentin [Neurontin] 300 mg PO HS 06/07/18 11/17/18 History HYDROcodone/APAP 10-325MG [[place] 1 tab PO Q6H PRN 06/07/18 11/17/18 History 10-325] Lisinopril [Zestril] 20 mg PO DAILY 06/07/18 11/17/18 History Omeprazole [PriLOSEC] 20 mg PO AC-BID 06/07/18 11/17/18 History Prochlorperazine [Compazine] 10 mg PO Q6H PRN 06/07/18 11/17/18 History Ondansetron [Zofran] 4 mg PO Q6H PRN 09/11/18 11/17/18 History valACYclovir HCL [Valtrex] 1,000 mg PO TID 09/11/18 11/17/18 History Aspirin 81 mg PO DAILY #30 chewable 09/17/18 11/17/18 Rx Sertraline [Zoloft] 200 mg PO DAILY 10/10/18 11/17/18 History Cholestyramine (with Sugar) 4 gm PO BID #60 packet 10/17/18 11/17/18 Rx [Questran Packet] Diphenox-Atrop 2.5-0.025 mg 1 tab PO QID 11/17/18 11/17/18 History [Lomotil] Nystatin [Nystop] 1 applic TOPICAL BID 11/17/18 11/17/18 History Rivaroxaban [Xarelto] 20 mg PO DAILY 11/17/18 11/17/18 History Allergies Allergy/AdvReac Type Severity Reaction Status Date / Time Anesthetics - Amide Type AdvReac Nausea & Verified 11/17/18 13:34 Vomiting & Diarrhea Anesthetics - Jonna Type- AdvReac Nausea & Verified 11/17/18 13:34 Parabens Vomiting & Diarrhea oxycodone [From OxyContin] AdvReac Nausea & Verified 11/17/18 13:34 Vomiting Physical Exam Vitals: Vital Signs Temp Pulse Pulse Resp BP BP Pulse Ox 11/17/18 17:25 101.7 F H 100 16 134/61 94 L 11/17/18 16:25 18 11/17/18 15:27 98.7 F 75 18 161/76 98 11/17/18 12:51 100.1 F H 85 18 168/74 99 Intake and Output 11/17/18 11/17/18 11/17/18 06:59 14:59 22:59 Other: Weight 112.037 kg GENERAL DESCRIPTION: Middle-aged female lying in bed, no distress. No tachypnea or accessory muscle of respiration use. HEENT: Shows Pallor , no scleral icterus. Oral mucous membrane is dry. No pharyngeal erythema or thrush NECK: Trachea central, no thyromegaly. LUNGS: Unlabored breathing. Clear to auscultation anteriorly. No wheeze or crackle. HEART: S1, S2, regular rate and rhythm. No loud murmur ABDOMEN: Soft, mild left lower quadrant tenderness , guarding or rigidity, no organomegaly EXTREMITIES: No edema of feet. SKIN: No rash, no masses palpable. NEUROLOGICAL: The patient is awake, alert, oriented x3, mood and affect normal Results CBC & Chem 7: 11/17/18 13:17 11/17/18 13:17 Labs: Abnormal Lab Results - Last 24 Hours (Table) 11/17/18 11/17/18 11/17/18 Range/Units 13:17 13:17 15:45 WBC 0.6 L* (3.8-10.6) k/uL RBC 3.27 L (3.80-5.40) m/uL Hgb 11.1 L (11.4-16.0) gm/dL Hct 33.2 L (34.0-46.0) % MCV 101.5 H (80.0-100.0) fL Plt Count 54 L (150-450) k/uL Potassium 3.2 L (3.5-5.1) mmol/L Glucose 135 H (74-99) mg/dL Calcium 8.2 L (8.4-10.2) mg/dL Total Bilirubin 2.2 H (0.2-1.3) mg/dL AST 62 H (14-36) U/L Alkaline Phosphatase 216 H (38-126) U/L Total Protein 5.2 L (6.3-8.2) g/dL Albumin 3.0 L (3.5-5.0) g/dL Amylase <30 L (30-110) U/L C. difficile (EIA) Intrp Positive A (Negative) Assessment and Plan Assessment: 1-patient presented to hospital with sepsis in this patient who did have a fever of 101F, the patient is leukopenic with a white count of 0.6 and in this patient have a history of C. diff colitis and C. diff abdominal pelvis shows evidence of colitis stool for C. diff is positive back secondary to acute C. diff colitis clinically doubt diverticulitis Plan: 1-discontinue the Levaquin 2-start the patient on vancomycin 250 mg by mouth every 6 hours 3-IV fluid we will follow up on clinical condition and cultures to further adjust medication if needed Thank you for this consultation will follow this patient along with you Time with Patient: Greater than 30
[2018-11-18 06:49] LABS: Glucose,Whole Blood 105 mg/dL (75-99)
[2018-11-18] MEDS: INSULIN ASPART (NovoLOG) 100 UNIT/ML VIAL SQ SCH ×4 (07:42→22:17)
[2018-11-18 08:11] LABS: HCT 31.5 % (34.0-46.0); HGB 10.5 gm/dL (11.4-16.0); MCHC 33.4 g/dL (31.0-37.0); MCV 101.9 fL (80.0-100.0); Macrocytosis Slight; RBC 3.09 m/uL (3.80-5.40); RDW 15.1 % (11.5-15.5)
[2018-11-18] MEDS: MORPHINE SULFATE 4 MG/ML SYRINGE IV PRN ×2 (08:13→18:26)
[2018-11-18] MEDS: ASPIRIN 81 MG PO SCH (08:14)
[2018-11-18] MEDS: RIVAROXABAN 20 MG TAB PO SCH (08:14)
[2018-11-18] MEDS: PANTOPRAZOLE 40 MG/10 ML VIAL IV SCH (08:14)
[2018-11-18] MEDS: metroNIDAZOLE-NS PMX 500 MG in SALINE 1 100ML.BAG IVPB SCH ×3 (08:14→23:15)
[2018-11-18] MEDS: LISINOPRIL 20 MG TAB PO SCH (08:14)
[2018-11-18] MEDS: OXYBUTYNIN XL 5 MG TAB.ER.24 PO SCH (08:15)
[2018-11-18] MEDS: valACYclovir HCL 1,000 MG TABLET PO SCH ×3 (08:15→22:18)
[2018-11-18] MEDS: SERTRALINE 100 MG TAB PO SCH (08:15)
[2018-11-18] MEDS: CHOLESTYRAMINE (WITH SUGAR) 4 GM PACKET PO SCH ×2 (08:15→22:17)
[2018-11-18 08:17] LABS: Platelet Count 53 k/uL (150-450); WBC 0.8 k/uL (3.8-10.6)
[2018-11-18 08:33] LABS: ALT 33 U/L (9-52); AST 44 U/L (14-36); African American GFR (CKD) >90 (>60 ml/min/1.73 sqM); Albumin 2.6 g/dL (3.5-5.0); Alkaline Phosphatase 166 U/L (38-126); Anion Gap 7 mmol/L; Blood Urea Nitrogen 14 mg/dL (7-17); Calcium 7.7 mg/dL (8.4-10.2); Carbon Dioxide 22 mmol/L (22-30); Chloride 108 mmol/L (98-107); Glucose 108 mg/dL (74-99); LDH 697 U/L (313-618); Magnesium 1.6 mg/dL (1.6-2.3); Potassium 3.3 mmol/L (3.5-5.1); Sodium 137 mmol/L (137-145); Total Bilirubin 2.5 mg/dL (0.2-1.3); Total Protein 4.7 g/dL (6.3-8.2)
[2018-11-18 10:55] LABS: Poikilocytosis (M) Present
[2018-11-18 11:52] LABS: Glucose,Whole Blood 105 mg/dL (75-99)
--- NOTE | 2018-11-18 12:02 | P.CONS ---
History of Present Illness - Reason for Consult Consult date: 11/18/18 NHL Neutropenia Requesting physician: Brandon Stoner - Chief Complaint Diarrhea - History of Present Illness Nidhi is a pleasant female patient of Dr. Balderrama, who was scheduled to receive maintentance rituxan lsat Sunday although her blood counds too low. She states she has had diarrhe over the past few days and today already 8 times. Her stool is positive for c-diff, she is pancytopenic, low grade fevers. 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 History of Any Multi-Drug Resistant Organisms: C-DIFF Year Discovered:: 09/11/18 MDRO Source:: stool Past Surgical History: Adenoidectomy, Appendectomy, Back Surgery, Cholecystectomy, Hysterectomy, Orthopedic Surgery, Tonsillectomy Additional Past Surgical History / Comment(s): Recent abdominal mass biopsy x 2, BMA, EGD/colonoscopy at [facility], bilateral carpal tunnel release, thyroidectomy (one tiny piece unable to remove), ORIF rt ankle, stents in LLE/vascular stent, cervical surgery C4,C6, thyroidectomy Past Anesthesia/Blood Transfusion Reactions: Postoperative Nausea & Vomiting (PONV) Additional Past Anesthesia/Blood Transfusion Reaction / Comm: blood transfusion(December 2015) "pt stated an hour after transfusion became very nauseated and had quit a bit of vomiting" Past Psychological History: No Psychological Hx Reported Smoking Status: Never smoker Past Alcohol Use History: None Reported Past Drug Use History: None Reported - Past Family History Mother Family Medical History: Diabetes Mellitus, Renal Disease Additional Family Medical History / Comment(s): Mother of kidney failure at the age of 69yrs. Father Family Medical History: Diabetes Mellitus Additional Family Medical History / Comment(s): Father of a "sugar coma" when he was 72 yrs old. Brother(s) Family Medical History: Cancer Sister(s) Family Medical History: Myocardial Infarction ([place]) Additional Family Medical History / Comment(s): Patient has 3 sisters and 2 of them are diabetic. Son(s) Family Medical History: No Reported History (Patient has 4 sons no major medical problems) Additional Family Medical History / Comment(s): Patient has 4 sons with no major medical problems. Daughter(s) Family Medical History: Deep Vein Thrombosis (DVT) Additional Family Medical History / Comment(s): Patient has a daughter with DVT. Medications and Allergies Home Medications Medication Instructions Recorded Confirmed Type Atorvastatin [Lipitor] 40 mg PO HS 02/10/16 11/17/18 History Levothyroxine Sodium [Synthroid] 137 mcg PO DAILY 08/17/16 11/17/18 History Glimepiride [Amaryl] 2 mg PO BID 12/19/16 11/17/18 History Tolterodine ER [Detrol LA] 4 mg PO DAILY 03/30/17 11/17/18 History Gabapentin [Neurontin] 300 mg PO HS 06/07/18 11/17/18 History HYDROcodone/APAP 10-325MG [[place] 1 tab PO Q6H PRN 06/07/18 11/17/18 History 10-325] Lisinopril [Zestril] 20 mg PO DAILY 06/07/18 11/17/18 History Omeprazole [PriLOSEC] 20 mg PO AC-BID 06/07/18 11/17/18 History Prochlorperazine [Compazine] 10 mg PO Q6H PRN 06/07/18 11/17/18 History Ondansetron [Zofran] 4 mg PO Q6H PRN 09/11/18 11/17/18 History valACYclovir HCL [Valtrex] 1,000 mg PO TID 09/11/18 11/17/18 History Aspirin 81 mg PO DAILY #30 chewable 09/17/18 11/17/18 Rx Sertraline [Zoloft] 200 mg PO DAILY 10/10/18 11/17/18 History Cholestyramine (with Sugar) 4 gm PO BID #60 packet 10/17/18 11/17/18 Rx [Questran Packet] Diphenox-Atrop 2.5-0.025 mg 1 tab PO QID 11/17/18 11/17/18 History [Lomotil] Nystatin [Nystop] 1 applic TOPICAL BID 11/17/18 11/17/18 History Rivaroxaban [Xarelto] 20 mg PO DAILY 11/17/18 11/17/18 History Allergies Allergy/AdvReac Type Severity Reaction Status Date / Time Anesthetics - Amide Type AdvReac Nausea & Verified 11/17/18 13:34 Vomiting & Diarrhea Anesthetics - Jonna Type- AdvReac Nausea & Verified 11/17/18 13:34 Parabens Vomiting & Diarrhea oxycodone [From OxyContin] AdvReac Nausea & Verified 11/17/18 13:34 Vomiting Physical Exam Vitals: Vital Signs Temp Pulse Pulse Resp BP BP Pulse Ox 11/18/18 11:53 98.9 F 93 18 144/67 95 11/18/18 08:00 16 11/18/18 05:00 99.9 F H 104 H 16 158/66 97 11/18/18 00:00 105 H 16 11/17/18 21:20 98.7 F 105 H 16 143/71 95 11/17/18 19:15 100 16 11/17/18 17:25 101.7 F H 100 16 134/61 94 L 11/17/18 16:25 18 11/17/18 15:27 98.7 F 75 18 161/76 98 11/17/18 12:51 100.1 F H 85 18 168/74 99 Intake and Output 11/17/18 11/18/18 11/18/18 22:59 06:59 14:59 Intake Total 720 970 Balance 720 970 Intake: Intake, IV Titration 300 550 Amount Sodium Chloride 0.9% 1, 300 450 000 ml @ 75 mls/hr IV . [id number] BETTE Rx#:[id number] metroNIDAZOLE-NS PMX 500 100 mg In Saline 1 100ml.bag @ 100 mls/hr IVPB Q8H BETTE Rx#:[id number] Oral 420 420 Other: Voiding Method Toilet Toilet Toilet # Voids 2 1 # Bowel Movements 2 1 General: Alert and Oriented x3, No Acute Distress Head: Normocytic, Atraumatic Neck: Supple Mouth: erythema, dry, lesions Eyes: Non-sclerotic No Palpable cervical, supraclavicular, axillary adenopathy Heart: Regular Rate, Regular Rhythm Lungs: Clear to Ausculations, No Wheeze, No Rhonchi, Diminishe bilateral lower lobes, No increased respiratory effort noted Abdomen: obese, tender to palpation Extremities: No Edema, Equal Strength Neurological: No Focal Defects: No sensory or motor deficits noted Psych: Calm and cooperative Results CBC & Chem 7: 11/18/18 07:25 11/18/18 07:25 Labs: Abnormal Lab Results - Last 24 Hours (Table) 11/17/18 11/17/18 11/17/18 Range/Units 13:17 13:17 15:45 WBC 0.6 L* (3.8-10.6) k/uL RBC 3.27 L (3.80-5.40) m/uL Hgb 11.1 L (11.4-16.0) gm/dL Hct 33.2 L (34.0-46.0) % MCV 101.5 H (80.0-100.0) fL Plt Count 54 L (150-450) k/uL Potassium 3.2 L (3.5-5.1) mmol/L Chloride (98-107) mmol/L Glucose 135 H (74-99) mg/dL POC Glucose (mg/dL) (75-99) mg/dL Calcium 8.2 L (8.4-10.2) mg/dL Total Bilirubin 2.2 H (0.2-1.3) mg/dL AST 62 H (14-36) U/L Alkaline Phosphatase 216 H (38-126) U/L Lactate Dehydrogenase (313-618) U/L Total Protein 5.2 L (6.3-8.2) g/dL Albumin 3.0 L (3.5-5.0) g/dL Amylase <30 L (30-110) U/L C. difficile (EIA) Intrp Positive A (Negative) 11/18/18 11/18/18 11/18/18 Range/Units 06:48 07:25 07:25 WBC 0.8 L* (3.8-10.6) k/uL RBC 3.09 L (3.80-5.40) m/uL Hgb 10.5 L (11.4-16.0) gm/dL Hct 31.5 L (34.0-46.0) % MCV 101.9 H (80.0-100.0) fL Plt Count 53 L (150-450) k/uL Potassium 3.3 L (3.5-5.1) mmol/L Chloride 108 H (98-107) mmol/L Glucose 108 H (74-99) mg/dL POC Glucose (mg/dL) 105 H (75-99) mg/dL Calcium 7.7 L (8.4-10.2) mg/dL Total Bilirubin 2.5 H (0.2-1.3) mg/dL AST 44 H (14-36) U/L Alkaline Phosphatase 166 H (38-126) U/L Lactate Dehydrogenase 697 H (313-618) U/L Total Protein 4.7 L (6.3-8.2) g/dL Albumin 2.6 L (3.5-5.0) g/dL Amylase (30-110) U/L C. difficile (EIA) Intrp (Negative) 11/18/18 Range/Units 11:50 WBC (3.8-10.6) k/uL RBC (3.80-5.40) m/uL Hgb (11.4-16.0) gm/dL Hct (34.0-46.0) % MCV (80.0-100.0) fL Plt Count (150-450) k/uL Potassium (3.5-5.1) mmol/L Chloride (98-107) mmol/L Glucose (74-99) mg/dL POC Glucose (mg/dL) 105 H (75-99) mg/dL Calcium (8.4-10.2) mg/dL Total Bilirubin (0.2-1.3) mg/dL AST (14-36) U/L Alkaline Phosphatase (38-126) U/L Lactate Dehydrogenase (313-618) U/L Total Protein (6.3-8.2) g/dL Albumin (3.5-5.0) g/dL Amylase (30-110) U/L C. difficile (EIA) Intrp (Negative) CT scan - abdomen: report reviewed CT scan - pelvis: report reviewed Assessment and Plan (1) Febrile neutropenia Current Visit: No Status: Acute Code(s): D70.9 - NEUTROPENIA, UNSPECIFIED; R50.81 - FEVER PRESENTING WITH CONDITIONS CLASSIFIED ELSEWHERE SNOMED Code(s): 537341297 (2) Mucositis Current Visit: No Status: Acute Code(s): K12.30 - ORAL MUCOSITIS (ULCERATIVE), UNSPECIFIED SNOMED Code(s): 34681220 Plan: Assessement and Recommendations: Pancytopenia: - Start granix - Will order IVIG, patient neutropenic and last IGG 400, hx: NHL and febrile neutropenia - Transfuse hemoglobin less than 7 or platlets less than 10 Febrile Neutropenia - Infectious disease is following - Vancomycin and Valtrex C-diff Positive/Diarrhea: -Continue Questran - Monitoring electrolytes per primary team Mucocytis: - Kools Ordered NHL: - Treatment with maintenance Rituxan - Primary Oncologist Dr. Balderrama Recent Shingles: - Right thigh. Physician Attestation: I have performed the full physical examination and reviewed the full history of this patient, as well as pertinent findings. I have created the compled impression and recommendations. I agree with the above dictation by WILMAR Mace. This dictation has been written as a scribe.
[2018-11-18] MEDS: CHERRY FLAVOR 60 ML BOTTLE PO SCH ×3 (13:32→23:16)
[2018-11-18] MEDS: FILGRASTIM-SNDZ 480 MCG/0.8 ML SYRINGE SQ SCH (13:32)
[2018-11-18] MEDS: HYDROcodone/APAP 10-325MG 1 EACH TAB PO PRN ×2 (13:34→23:21)
[2018-11-18] MEDS: MAG HYDROX/AL HYDROX/SIMETH 30 ML, LIDOCAINE VISCOUS 30 ML, diphenhydrAMINE ELIXIR 75 M... PO SCH ×12 (13:35→22:18)
--- NOTE | 2018-11-18 14:13 | P.PN ---
Subjective Progress Note Date: 11/18/18 patient seen and examined at bedside, still c/o tiffanierhea had 4 episodes since this am loose watery stools. Also mentions some lower abdominal pain and nausea. Objective - Vital Signs Vital signs: Vital Signs Temp 98.9 F 11/18/18 11:53 Pulse 93 11/18/18 11:53 Resp 18 11/18/18 11:53 BP 144/67 11/18/18 11:53 Pulse Ox 95 11/18/18 11:53 Intake & Output 11/17/18 11/18/18 11/18/18 18:59 06:59 18:59 Intake Total 1690 Balance 1690 Weight 112.037 kg Intake: Intake, IV Titration 850 Amount Sodium Chloride 0.9% 1, 750 000 ml @ 75 mls/hr IV . [id number] [facility] Rx#:[id number] metroNIDAZOLE-NS PMX 500 100 mg In Saline 1 100ml.bag @ 100 mls/hr IVPB Q8H BETTE Rx#:[id number] Oral 840 Other: Voiding Method Toilet Toilet # Voids 1 # Bowel Movements 1 - Exam Constitutional: No acute distress, conversant, pleasant Eyes: Anicteric sclerae, moist conjunctiva, no lid-lag, PERRLA ENMT: NC/AT,Oropharynx clear, no erythema, exudates Neck:Supple, FROM, no masses, or JVD, No carotid bruits; No thyromegaly Lungs: Clear to auscultation, Clear to percussion, Normal respiratory effort, no accessory muscle use Cardiovascular: Heart regular in rate and rhythm, No murmurs, gallops, or rubs no peripheral edema Abdominal: Soft Nontender, nom distended, no guarding, no rebound or rigidity, Normoactive bowel sounds No hepatomegaly, No splenomegaly, No palpable mass No abdominal wall hernia noted Skin: Normal temperature, tone, texture, turgor, No induration No subcutaneous nodules, No rash, lesions, No ulcers Extremities:No digital cyanosis No clubbing, Pedal pulses intact and symmetrical Radial pulses intact and symmetrical Normal gait and station, No calf tenderness Psychiatric: Alert and oriented to person, place and time, Appropriate affect Intact judgement Neuro: Muscles Strength 5/5 in all 4 extremities, Sensation to light touch grossly present throughout, Cranial nerves II-XII grossly intact. No focal sensory deficits - Labs CBC & Chem 7: 11/18/18 07:25 11/18/18 07:25 Labs: Abnormal Lab Results - Last 24 Hours (Table) 11/17/18 11/17/18 11/17/18 Range/Units 13:17 13:17 15:45 WBC 0.6 L* (3.8-10.6) k/uL RBC 3.27 L (3.80-5.40) m/uL Hgb 11.1 L (11.4-16.0) gm/dL Hct 33.2 L (34.0-46.0) % MCV 101.5 H (80.0-100.0) fL Plt Count 54 L (150-450) k/uL Potassium 3.2 L (3.5-5.1) mmol/L Chloride (98-107) mmol/L Glucose 135 H (74-99) mg/dL POC Glucose (mg/dL) (75-99) mg/dL Calcium 8.2 L (8.4-10.2) mg/dL Total Bilirubin 2.2 H (0.2-1.3) mg/dL AST 62 H (14-36) U/L Alkaline Phosphatase 216 H (38-126) U/L Lactate Dehydrogenase (313-618) U/L Total Protein 5.2 L (6.3-8.2) g/dL Albumin 3.0 L (3.5-5.0) g/dL Amylase <30 L (30-110) U/L C. difficile (EIA) Intrp Positive A (Negative) 11/18/18 11/18/18 11/18/18 Range/Units 06:48 07:25 07:25 WBC 0.8 L* (3.8-10.6) k/uL RBC 3.09 L (3.80-5.40) m/uL Hgb 10.5 L (11.4-16.0) gm/dL Hct 31.5 L (34.0-46.0) % MCV 101.9 H (80.0-100.0) fL Plt Count 53 L (150-450) k/uL Potassium 3.3 L (3.5-5.1) mmol/L Chloride 108 H (98-107) mmol/L Glucose 108 H (74-99) mg/dL POC Glucose (mg/dL) 105 H (75-99) mg/dL Calcium 7.7 L (8.4-10.2) mg/dL Total Bilirubin 2.5 H (0.2-1.3) mg/dL AST 44 H (14-36) U/L Alkaline Phosphatase 166 H (38-126) U/L Lactate Dehydrogenase 697 H (313-618) U/L Total Protein 4.7 L (6.3-8.2) g/dL Albumin 2.6 L (3.5-5.0) g/dL Amylase (30-110) U/L C. difficile (EIA) Intrp (Negative) 11/18/18 Range/Units 11:50 WBC (3.8-10.6) k/uL RBC (3.80-5.40) m/uL Hgb (11.4-16.0) gm/dL Hct (34.0-46.0) % MCV (80.0-100.0) fL Plt Count (150-450) k/uL Potassium (3.5-5.1) mmol/L Chloride (98-107) mmol/L Glucose (74-99) mg/dL POC Glucose (mg/dL) 105 H (75-99) mg/dL Calcium (8.4-10.2) mg/dL Total Bilirubin (0.2-1.3) mg/dL AST (14-36) U/L Alkaline Phosphatase (38-126) U/L Lactate Dehydrogenase (313-618) U/L Total Protein (6.3-8.2) g/dL Albumin (3.5-5.0) g/dL Amylase (30-110) U/L C. difficile (EIA) Intrp (Negative) Assessment and Plan (1) Sepsis Narrative/Plan: * Secondary to C. diff colitis * Patient with fevers and neutropenia * Continue antibiotic current regimen per ID recommendations * Hemodynamically stable at present continue to monitor Current Visit: No Status: Acute Code(s): A41.9 - SEPSIS, UNSPECIFIED ORGANISM SNOMED Code(s): 77792882 (2) Febrile neutropenia Narrative/Plan: * Continue immunosuppressive precautions * antibiotics per ID recommendations Current Visit: Yes Status: Acute Code(s): D70.9 - NEUTROPENIA, UNSPECIFIED; R50.81 - FEVER PRESENTING WITH CONDITIONS CLASSIFIED ELSEWHERE SNOMED Code(s): 344310812 (3) C. difficile colitis Narrative/Plan: * Having ongoing diarrhea and loose stools, positive for C. diff * Continue PO vancomycin with Questran and Flagyl Current Visit: Yes Status: Acute Code(s): A04.72 - ENTEROCOLITIS D/T CLOSTRIDIUM DIFFICILE, NOT SPCF RECUR SNOMED Code(s): 377253738 (4) Pancytopenia Narrative/Plan: * Likely chemotherapy induced patient was prepped is scheduled to have Rituxan last Sunday however counts were too low at that time * Appreciate hematology oncology recommendations * Patient initiated on granix, IVIG ordered * Hemoglobin currently stable we'll transfuse if less than 7 and platelets less than 10 Current Visit: Yes Status: Acute Code(s): D61.818 - OTHER PANCYTOPENIA SNOMED Code(s): 096966671 (5) Hypokalemia Narrative/Plan: * Likely secondary to diarrhea * We'll replace and recheck Current Visit: Yes Status: Acute Code(s): E87.6 - HYPOKALEMIA SNOMED Code(s): 92427032
[2018-11-18] MEDS: POTASSIUM CHLORIDE 10 MEQ in WATER FOR INJECTION 1 100ML.BAG IVPB SCH ×4 (15:16→20:10)
[2018-11-18 17:07] LABS: Glucose,Whole Blood 65 mg/dL (75-99)
[2018-11-18 17:26] LABS: Glucose,Whole Blood 65 mg/dL (75-99)
[2018-11-18 17:50] LABS: Glucose,Whole Blood 96 mg/dL (75-99)
--- NOTE | 2018-11-18 19:32 | PN ---
PROGRESS NOTE DATE OF SERVICE: 11/18/2018. REASON FOR FOLLOWUP: Febrile neutropenia with recurrent C difficile colitis. INTERVAL HISTORY: The patient's overall fever pattern has improved. The last temperature was 99.9 this morning. The patient is still not feeling well, though. She continues to complain of lower abdominal pain along with diarrhea with multiple loose stools. Denies having any chest pain, shortness of breath or cough. PHYSICAL EXAMINATION: Blood pressure 144/67 with a pulse of 93, temperature 98.9. She is 95% on room air. General description is a middle-aged female lying in bed in no distress. RESPIRATORY SYSTEM: Unlabored breathing. Clear to auscultation anteriorly. HEART: S1, S2. Regular rate and rhythm. ABDOMEN: Soft. Mildly tender in the left lower quadrant area. EXTREMITIES: No edema of the feet. LABS: Hemoglobin is 10.5, white count 0.8. BUN of 14, creatinine 0.70. 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 The patient seems to be responding to IV Flagyl, oral vancomycin; to continue while monitoring her clinical course closely. With persistent diarrhea, Questran will be added. Continue with supportive care. MMODL / IJN: [id number] /
[2018-11-18 21:09] LABS: Glucose,Whole Blood 55 mg/dL (75-99)
[2018-11-18] MEDS: DEXTROSE 5%-0.9% NACL 1,000 ML IV SCH (21:45)
[2018-11-18] MEDS: GABAPENTIN 300 MG CAP PO SCH (22:17)
[2018-11-18] MEDS: ATORVASTATIN 40 MG TAB PO SCH (22:17)
[2018-11-18 22:31] LABS: Glucose,Whole Blood 65 mg/dL (75-99)
[2018-11-18 23:06] LABS: Glucose,Whole Blood 98 mg/dL (75-99)
[2018-11-19] MEDS: LEVOTHYROXINE 137 MCG TAB PO SCH (05:30)
[2018-11-19] MEDS: VANCOMYCIN ORAL SOLUTION 250 MG/5 ML BOTTLE PO SCH ×3 (05:30→18:28)
[2018-11-19] MEDS: CHERRY FLAVOR 60 ML BOTTLE PO SCH ×3 (05:30→18:28)
[2018-11-19 06:59] LABS: Glucose,Whole Blood 142 mg/dL (75-99)
[2018-11-19] MEDS: metroNIDAZOLE-NS PMX 500 MG in SALINE 1 100ML.BAG IVPB SCH ×2 (08:22→16:31)
[2018-11-19] MEDS: LISINOPRIL 20 MG TAB PO SCH ×2 (08:26→08:34)
[2018-11-19] MEDS: HYDROcodone/APAP 10-325MG 1 EACH TAB PO PRN ×3 (08:27→21:34)
[2018-11-19] MEDS: DEXTROSE 5%-0.9% NACL 1,000 ML IV SCH ×2 (08:31→16:36)
[2018-11-19] MEDS: ASPIRIN 81 MG PO SCH (08:32)
[2018-11-19] MEDS: INSULIN ASPART (NovoLOG) 100 UNIT/ML VIAL SQ SCH ×4 (08:32→20:33)
[2018-11-19] MEDS: RIVAROXABAN 20 MG TAB PO SCH (08:34)
[2018-11-19] MEDS: PANTOPRAZOLE 40 MG/10 ML VIAL IV SCH (08:35)
[2018-11-19] MEDS: CHOLESTYRAMINE (WITH SUGAR) 4 GM PACKET PO SCH ×2 (08:37→21:34)
[2018-11-19] MEDS: OXYBUTYNIN XL 5 MG TAB.ER.24 PO SCH (08:37)
[2018-11-19] MEDS: SERTRALINE 100 MG TAB PO SCH (08:38)
[2018-11-19] MEDS: valACYclovir HCL 1,000 MG TABLET PO SCH ×3 (08:38→21:34)
[2018-11-19] MEDS: MAG HYDROX/AL HYDROX/SIMETH 30 ML, LIDOCAINE VISCOUS 30 ML, diphenhydrAMINE ELIXIR 75 M... PO SCH ×12 (08:47→21:50)
[2018-11-19] MEDS: FILGRASTIM-SNDZ 480 MCG/0.8 ML SYRINGE SQ SCH (08:50)
[2018-11-19 09:51] LABS: ALT 36 U/L (9-52); AST 25 U/L (14-36); African American GFR (CKD) >90 (>60 ml/min/1.73 sqM); Albumin 2.3 g/dL (3.5-5.0); Alkaline Phosphatase 135 U/L (38-126); Anion Gap 5 mmol/L; Blood Urea Nitrogen 17 mg/dL (7-17); Carbon Dioxide 24 mmol/L (22-30); Chloride 108 mmol/L (98-107); Glucose 85 mg/dL (74-99); Magnesium 1.9 mg/dL (1.6-2.3); Potassium 3.5 mmol/L (3.5-5.1); Sodium 137 mmol/L (137-145); Total Bilirubin 2.3 mg/dL (0.2-1.3); Total Protein 4.3 g/dL (6.3-8.2)
[2018-11-19 10:00] LABS: HCT 32.1 % (34.0-46.0); HGB 10.4 gm/dL (11.4-16.0); MCH 33.9 pg (25.0-35.0); MCHC 32.4 g/dL (31.0-37.0); MCV 104.7 fL (80.0-100.0); Macrocytosis Moderate; Mean Platelet Volume 8.6; RBC 3.07 m/uL (3.80-5.40); RDW 14.7 % (11.5-15.5)
[2018-11-19 10:03] LABS: Platelet Count 61 k/uL (150-450)
[2018-11-19] MEDS ORDERED: POTASSIUM CHLORIDE ER 10 MEQ TAB.ER.PRT PO STA (11:03)
--- NOTE | 2018-11-19 11:04 | P.PN ---
Subjective Progress Note Date: 11/19/18 Patient seen and examined at bedside, still complaining of significant diarrhea apparently 8 watery loose stools overnight and 2 since this morning, reports lower abdominal cramping. No fever overnight. White count coming up slowly. Hemoglobin 10.4 Objective - Vital Signs Vital signs: Vital Signs Temp 98.4 F 11/19/18 05:00 Pulse 81 11/19/18 08:00 Resp 18 11/19/18 05:00 BP 107/53 11/19/18 05:00 Pulse Ox 95 11/19/18 05:00 Intake & Output 11/18/18 11/19/18 11/19/18 18:59 06:59 18:59 Intake Total 1850 2480 Balance 1850 2480 Intake: Intake, IV Titration 1100 1250 Amount Dextrose 5%-0.9% NaCl 1, 800 000 ml @ 100 mls/hr IV . Q10H BETTE Rx#:[id number] Potassium Chloride 10 meq 100 200 In Water For Injection 1 100ml.bag @ 100 mls/hr IVPB Q1HR BETTE Rx#: [id number] Sodium Chloride 0.9% 1, 900 150 000 ml @ 75 mls/hr IV . [id number] BETTE Rx#:[id number] metroNIDAZOLE-NS PMX 500 100 100 mg In Saline 1 100ml.bag @ 100 mls/hr IVPB Q8H BETTE Rx#:[id number] Oral 750 1230 Other: Voiding Method Toilet Toilet Toilet # Voids 4 2 # Bowel Movements 6 2 - Exam Constitutional: No acute distress, conversant, pleasant Eyes: Anicteric sclerae, moist conjunctiva, no lid-lag, PERRLA ENMT: NC/AT,Oropharynx clear, no erythema, exudates Neck:Supple, FROM, no masses, or JVD, No carotid bruits; No thyromegaly Lungs: Clear to auscultation, Clear to percussion, Normal respiratory effort, no accessory muscle use Cardiovascular: Heart regular in rate and rhythm, No murmurs, gallops, or rubs no peripheral edema Abdominal: Soft Nontender, nom distended, no guarding, no rebound or rigidity, Normoactive bowel sounds No hepatomegaly, No splenomegaly, No palpable mass No abdominal wall hernia noted Skin: Normal temperature, tone, texture, turgor, No induration No subcutaneous nodules, No rash, lesions, No ulcers Extremities:No digital cyanosis No clubbing, Pedal pulses intact and symmetrical Radial pulses intact and symmetrical Normal gait and station, No calf tenderness Psychiatric: Alert and oriented to person, place and time, Appropriate affect Intact judgement Neuro: Muscles Strength 5/5 in all 4 extremities, Sensation to light touch grossly present throughout, Cranial nerves II-XII grossly intact. No focal sensory deficits - Labs CBC & Chem 7: 11/19/18 08:32 11/19/18 08:32 Labs: Abnormal Lab Results - Last 24 Hours (Table) 11/18/18 11/18/18 11/18/18 Range/Units 07:25 11:50 17:06 WBC (3.8-10.6) k/uL RBC (3.80-5.40) m/uL Hgb (11.4-16.0) gm/dL Hct (34.0-46.0) % MCV (80.0-100.0) fL Plt Count 53 L (150-450) k/uL Chloride (98-107) mmol/L POC Glucose (mg/dL) 105 H 65 L (75-99) mg/dL Calcium (8.4-10.2) mg/dL Total Bilirubin (0.2-1.3) mg/dL Alkaline Phosphatase (38-126) U/L Total Protein (6.3-8.2) g/dL Albumin (3.5-5.0) g/dL 11/18/18 11/18/18 11/18/18 Range/Units 17:25 21:07 22:20 WBC (3.8-10.6) k/uL RBC (3.80-5.40) m/uL Hgb (11.4-16.0) gm/dL Hct (34.0-46.0) % MCV (80.0-100.0) fL Plt Count (150-450) k/uL Chloride (98-107) mmol/L POC Glucose (mg/dL) 65 L 55 L 65 L (75-99) mg/dL Calcium (8.4-10.2) mg/dL Total Bilirubin (0.2-1.3) mg/dL Alkaline Phosphatase (38-126) U/L Total Protein (6.3-8.2) g/dL Albumin (3.5-5.0) g/dL 11/19/18 11/19/18 11/19/18 Range/Units 06:58 08:32 08:32 WBC 1.0 L* (3.8-10.6) k/uL RBC 3.07 L (3.80-5.40) m/uL Hgb 10.4 L (11.4-16.0) gm/dL Hct 32.1 L (34.0-46.0) % MCV 104.7 H (80.0-100.0) fL Plt Count (150-450) k/uL Chloride 108 H (98-107) mmol/L POC Glucose (mg/dL) 142 H (75-99) mg/dL Calcium 8.0 L (8.4-10.2) mg/dL Total Bilirubin 2.3 H (0.2-1.3) mg/dL Alkaline Phosphatase 135 H (38-126) U/L Total Protein 4.3 L (6.3-8.2) g/dL Albumin 2.3 L (3.5-5.0) g/dL Microbiology - Last 24 Hours (Table) 11/17/18 13:17 Blood Culture - Preliminary Blood No Growth after 24 hours Assessment and Plan (1) Sepsis Narrative/Plan: * Secondary to C. diff colitis * Patient with fevers and neutropenia * Continue antibiotic current regimen per ID recommendations * Hemodynamically stable at present continue to monitor Current Visit: No Status: Acute Code(s): A41.9 - SEPSIS, UNSPECIFIED ORGANISM SNOMED Code(s): 47389300 (2) Febrile neutropenia Narrative/Plan: * Continue immunosuppressive neutropenic precautions * antibiotics per ID recommendations Current Visit: Yes Status: Acute Code(s): D70.9 - NEUTROPENIA, UNSPECIFIED; R50.81 - FEVER PRESENTING WITH CONDITIONS CLASSIFIED ELSEWHERE SNOMED Code(s): 827954250 (3) C. difficile colitis Narrative/Plan: * Having ongoing diarrhea and loose stools, positive for C. diff * Continue PO vancomycin with Questran and Flagyl Current Visit: Yes Status: Acute Code(s): A04.72 - ENTEROCOLITIS D/T CLOSTRIDIUM DIFFICILE, NOT SPCF RECUR SNOMED Code(s): 362738549 (4) Pancytopenia Narrative/Plan: * Likely chemotherapy induced patient was prepped is scheduled to have Rituxan last Sunday however counts were too low at that time * Appreciate hematology oncology recommendations * Patient initiated on Zarxio, IVIG ordered * Hemoglobin currently stable we'll transfuse if less than 7 and platelets less than 10 Current Visit: Yes Status: Acute Code(s): D61.818 - OTHER PANCYTOPENIA SNOMED Code(s): 386481604 (5) Hypokalemia Narrative/Plan: * Likely secondary to diarrhea * We'll replace and recheck Current Visit: Yes Status: Acute Code(s): E87.6 - HYPOKALEMIA SNOMED Code(s): 91887267
[2018-11-19 11:12] LABS: Glucose,Whole Blood 79 mg/dL (75-99)
[2018-11-19 11:33] LABS: Lymphocytes # (M) 0.11 k/uL (1.0-4.8); Monocytes # (M) 0.65 k/uL (0-1.0); Neutrophils # (M) 0.14 k/uL (1.3-7.7); Neutrophils % (M) 14 %; Nucleated Red Blood Cells 0 /100 WBC (0-0); Total Cells Counted 100
[2018-11-19 11:36] LABS: Anisocytosis (M) Present; Poikilocytosis (M) Present; RBC Fragments Present
[2018-11-19 13:10] LABS: Immunoglobulin A 81.8 mg/dL (60.0-350.0); Immunoglobulin M <16.9 mg/dL (40.0-280.0)
--- NOTE | 2018-11-19 13:29 | P.PN ---
Subjective Progress Note Date: 11/19/18 Principal diagnosis: C-Diff Colitis while Neutropenic Still frequent stools and diffuse abdominal pain Objective - Vital Signs Vital signs: Vital Signs Temp 97.9 F 11/19/18 11:10 Pulse 70 11/19/18 11:10 Resp 17 11/19/18 11:10 BP 105/50 11/19/18 11:10 Pulse Ox 96 11/19/18 11:10 Intake & Output 11/18/18 11/19/18 11/19/18 18:59 06:59 18:59 Intake Total 1850 2480 Balance 1850 2480 Intake: Intake, IV Titration 1100 1250 Amount Dextrose 5%-0.9% NaCl 1, 800 000 ml @ 100 mls/hr IV . Q10H BETTE Rx#:[id number] Potassium Chloride 10 meq 100 200 In Water For Injection 1 100ml.bag @ 100 mls/hr IVPB Q1HR BETTE Rx#: [id number] Sodium Chloride 0.9% 1, 900 150 000 ml @ 75 mls/hr IV . [id number] BETTE Rx#:[id number] metroNIDAZOLE-NS PMX 500 100 100 mg In Saline 1 100ml.bag @ 100 mls/hr IVPB Q8H BETTE Rx#:[id number] Oral 750 1230 Other: Voiding Method Toilet Toilet Toilet # Voids 4 2 # Bowel Movements 6 2 - Exam General: Alert and Oriented x3, No Acute Distress Head: Normocytic, Atraumatic Neck: Supple Mouth: No Lesions, No Thrush Eyes: Non-sclerotic No Palpable cervical, supraclavicular, axillary adenopathy Heart: Regular Rate, Regular Rhythm Lungs: Clear to Ausculations, No Wheeze, No Rhonchi, Diminishe bilateral lower lobes, No increased respiratory effort noted Abdomen: obese, tender Extremities: No Edema, Equal Strength Neurological: No Focal Defects: No sensory or motor deficits noted Psych: Calm and cooperative - Labs CBC & Chem 7: 11/19/18 08:32 11/19/18 08:32 Labs: Abnormal Lab Results - Last 24 Hours (Table) 11/18/18 11/18/18 11/18/18 Range/Units 07:25 17:06 17:25 WBC (3.8-10.6) k/uL RBC (3.80-5.40) m/uL Hgb (11.4-16.0) gm/dL Hct (34.0-46.0) % MCV (80.0-100.0) fL Plt Count (150-450) k/uL Neutrophils # (Manual) (1.3-7.7) k/uL Lymphocytes # (Manual) (1.0-4.8) k/uL Chloride (98-107) mmol/L POC Glucose (mg/dL) 65 L 65 L (75-99) mg/dL Calcium (8.4-10.2) mg/dL Total Bilirubin (0.2-1.3) mg/dL Alkaline Phosphatase (38-126) U/L Total Protein (6.3-8.2) g/dL Albumin (3.5-5.0) g/dL IgG 547.0 L (700.0-1600.0) mg/dL IgM <16.9 L (40.0-280.0) mg/dL 11/18/18 11/18/18 11/19/18 Range/Units 21:07 22:20 06:58 WBC (3.8-10.6) k/uL RBC (3.80-5.40) m/uL Hgb (11.4-16.0) gm/dL Hct (34.0-46.0) % MCV (80.0-100.0) fL Plt Count (150-450) k/uL Neutrophils # (Manual) (1.3-7.7) k/uL Lymphocytes # (Manual) (1.0-4.8) k/uL Chloride (98-107) mmol/L POC Glucose (mg/dL) 55 L 65 L 142 H (75-99) mg/dL Calcium (8.4-10.2) mg/dL Total Bilirubin (0.2-1.3) mg/dL Alkaline Phosphatase (38-126) U/L Total Protein (6.3-8.2) g/dL Albumin (3.5-5.0) g/dL IgG (700.0-1600.0) mg/dL IgM (40.0-280.0) mg/dL 11/19/18 11/19/18 Range/Units 08:32 08:32 WBC 1.0 L* (3.8-10.6) k/uL RBC 3.07 L (3.80-5.40) m/uL Hgb 10.4 L (11.4-16.0) gm/dL Hct 32.1 L (34.0-46.0) % MCV 104.7 H (80.0-100.0) fL Plt Count 61 L (150-450) k/uL Neutrophils # (Manual) 0.14 L* (1.3-7.7) k/uL Lymphocytes # (Manual) 0.11 L (1.0-4.8) k/uL Chloride 108 H (98-107) mmol/L POC Glucose (mg/dL) (75-99) mg/dL Calcium 8.0 L (8.4-10.2) mg/dL Total Bilirubin 2.3 H (0.2-1.3) mg/dL Alkaline Phosphatase 135 H (38-126) U/L Total Protein 4.3 L (6.3-8.2) g/dL Albumin 2.3 L (3.5-5.0) g/dL IgG (700.0-1600.0) mg/dL IgM (40.0-280.0) mg/dL Microbiology - Last 24 Hours (Table) 11/17/18 13:17 Blood Culture - Preliminary Blood No Growth after 24 hours Assessment and Plan (1) Febrile neutropenia Current Visit: No Status: Acute Code(s): D70.9 - NEUTROPENIA, UNSPECIFIED; R50.81 - FEVER PRESENTING WITH CONDITIONS CLASSIFIED ELSEWHERE SNOMED Code(s): 751029557 (2) Mucositis Current Visit: No Status: Acute Code(s): K12.30 - ORAL MUCOSITIS (ULCERATIVE), UNSPECIFIED SNOMED Code(s): 79566172 Plan: Assessement and Recommendations: Pancytopenia: - Start granix - Will order IVIG, patient neutropenic and last IGG 400, hx: NHL and febrile neutropenia - Transfuse hemoglobin less than 7 or platlets less than 10 Febrile Neutropenia - Infectious disease is following - Vancomycin and Valtrex C-diff Positive/Diarrhea: -Continue Questran - Monitoring electrolytes per primary team Mucocytis: - Kools Ordered NHL: - Treatment with maintenance Rituxan - Primary Oncologist Dr. Balderrama Recent Shingles: - Right thigh. PLan: - NPO with Sips as high risk perforation while neutropenic and extent of inflammation - ID to manage C-Diff
--- NOTE | 2018-11-19 14:37 | PN ---
PROGRESS NOTE DATE OF SERVICE: 11/19/2018 REASON FOR FOLLOWUP: Clostridium difficile colitis. INTERVAL HISTORY: The patient is currently patient is on pain med. Denies any chest pain or cough. No abdominal pain. The diarrhea has decreased. No blood or mucus in the stool. PHYSICAL EXAMINATION: Blood pressure 105/50 with a pulse of 72, temperature 97.9., she is 93% on room air. General description of a middle-aged female lying in bed in no distress. RESPIRATORY SYSTEM: Unlabored breathing, clear to auscultation anteriorly. HEART: S1, S2. Regular rate and rhythm. ABDOMEN: Soft, nontender. DIAGNOSTIC IMPRESSION AND PLAN: Patient with neutropenic. 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 PLAN: Continue with oral vancomycin and with Questran for symptomatic relief. continue supportive care. MMARNOLL / IJN: [id number] /
[2018-11-19 17:23] LABS: Glucose,Whole Blood 76 mg/dL (75-99)
[2018-11-19 20:21] LABS: Glucose,Whole Blood 82 mg/dL (75-99)
[2018-11-19] MEDS: ATORVASTATIN 40 MG TAB PO SCH (21:34)
[2018-11-19] MEDS: GABAPENTIN 300 MG CAP PO SCH (21:34)
[2018-11-20] MEDS: metroNIDAZOLE-NS PMX 500 MG in SALINE 1 100ML.BAG IVPB SCH ×4 (00:07→23:48)
[2018-11-20] MEDS: VANCOMYCIN ORAL SOLUTION 250 MG/5 ML BOTTLE PO SCH ×5 (00:08→23:48)
[2018-11-20] MEDS: CHERRY FLAVOR 60 ML BOTTLE PO SCH ×6 (00:08→23:48)
[2018-11-20] MEDS: DEXTROSE 5%-0.9% NACL 1,000 ML IV SCH ×2 (03:32→12:46)
[2018-11-20] MEDS: LEVOTHYROXINE 137 MCG TAB PO SCH (05:38)
[2018-11-20] MEDS: HYDROcodone/APAP 10-325MG 1 EACH TAB PO PRN ×3 (05:39→21:50)
[2018-11-20 07:06] LABS: Glucose,Whole Blood 93 mg/dL (75-99)
[2018-11-20 07:41] LABS: HCT 29.3 % (34.0-46.0); HGB 9.5 gm/dL (11.4-16.0); Hypochromasia Slight; MCH 33.9 pg (25.0-35.0); MCHC 32.3 g/dL (31.0-37.0); Macrocytosis Moderate; Mean Platelet Volume 9.5; RBC 2.79 m/uL (3.80-5.40); RDW 14.8 % (11.5-15.5)
[2018-11-20] MEDS: INSULIN ASPART (NovoLOG) 100 UNIT/ML VIAL SQ SCH ×3 (07:45→17:54)
[2018-11-20 08:10] LABS: ALT 34 U/L (9-52); AST 21 U/L (14-36); African American GFR (CKD) >90 (>60 ml/min/1.73 sqM); Alkaline Phosphatase 117 U/L (38-126); Anion Gap 5 mmol/L; Blood Urea Nitrogen 16 mg/dL (7-17); Calcium 7.9 mg/dL (8.4-10.2); Carbon Dioxide 22 mmol/L (22-30); Chloride 113 mmol/L (98-107); Glucose 81 mg/dL (74-99); Magnesium 1.9 mg/dL (1.6-2.3); Potassium 3.5 mmol/L (3.5-5.1); Sodium 140 mmol/L (137-145); Total Bilirubin 1.7 mg/dL (0.2-1.3); Total Protein 3.8 g/dL (6.3-8.2)
[2018-11-20 08:30] LABS: WBC 0.7 k/uL (3.8-10.6)
[2018-11-20 08:31] LABS: Platelet Count 54 k/uL (150-450)
--- NOTE | 2018-11-20 09:22 | P.PN ---
Subjective Progress Note Date: 11/20/18 Patient seen and examined at bedside, continue neutropenic C. diff precautions. Patient afebrile overnight, still having episodes of diarrhea had about 6 last night and 2 since this morning, currently on ice chips nothing by mouth except meds no acute events overnight. Objective - Vital Signs Vital signs: Vital Signs Temp 97.6 F 11/20/18 05:00 Pulse 64 11/20/18 05:00 Resp 18 11/20/18 05:00 BP 113/53 11/20/18 05:00 Pulse Ox 97 11/20/18 05:00 Intake & Output 11/19/18 11/20/18 11/20/18 18:59 06:59 18:59 Intake Total 800 1300 Balance 800 1300 Intake: Intake, IV Titration 800 1200 Amount Dextrose 5%-0.9% NaCl 1, 700 1200 000 ml @ 100 mls/hr IV . Q10H BETTE Rx#:[id number] metroNIDAZOLE-NS PMX 500 100 mg In Saline 1 100ml.bag @ 100 mls/hr IVPB Q8H BETTE Rx#:[id number] Oral 100 Other: Voiding Method Toilet Toilet # Voids 2 # Bowel Movements 3 2 - Exam Constitutional: No acute distress, conversant, pleasant Eyes: Anicteric sclerae, moist conjunctiva, no lid-lag, PERRLA ENMT: NC/AT,Oropharynx clear, no erythema, exudates Neck:Supple, FROM, no masses, or JVD, No carotid bruits; No thyromegaly Lungs: Clear to auscultation, Clear to percussion, Normal respiratory effort, no accessory muscle use Cardiovascular: Heart regular in rate and rhythm, No murmurs, gallops, or rubs no peripheral edema Abdominal: Tender to palpation in the lower abdomen nom distended, no guarding, no rebound or rigidity, Normoactive bowel sounds No hepatomegaly, No splenomegaly, No palpable mass No abdominal wall hernia noted Skin: Normal temperature, tone, texture, turgor, No induration No subcutaneous nodules, No rash, lesions, No ulcers Extremities:No digital cyanosis No clubbing, Pedal pulses intact and symmetrical Radial pulses intact and symmetrical Normal gait and station, No calf tenderness Psychiatric: Alert and oriented to person, place and time, Appropriate affect Intact judgement Neuro: Muscles Strength 5/5 in all 4 extremities, Sensation to light touch grossly present throughout, Cranial nerves II-XII grossly intact. No focal sensory deficits - Labs CBC & Chem 7: 11/20/18 07:25 11/20/18 07:25 Labs: Abnormal Lab Results - Last 24 Hours (Table) 11/18/18 11/19/18 11/19/18 Range/Units 07:25 08:32 08:32 WBC 1.0 L* (3.8-10.6) k/uL RBC 3.07 L (3.80-5.40) m/uL Hgb 10.4 L (11.4-16.0) gm/dL Hct 32.1 L (34.0-46.0) % MCV 104.7 H (80.0-100.0) fL Plt Count 61 L (150-450) k/uL Neutrophils # (Manual) 0.14 L* (1.3-7.7) k/uL Lymphocytes # (Manual) 0.11 L (1.0-4.8) k/uL Chloride 108 H (98-107) mmol/L Calcium 8.0 L (8.4-10.2) mg/dL Total Bilirubin 2.3 H (0.2-1.3) mg/dL Alkaline Phosphatase 135 H (38-126) U/L Total Protein 4.3 L (6.3-8.2) g/dL Albumin 2.3 L (3.5-5.0) g/dL IgG 547.0 L (700.0-1600.0) mg/dL IgM <16.9 L (40.0-280.0) mg/dL 11/20/18 11/20/18 Range/Units 07:25 07:25 WBC 0.7 L* (3.8-10.6) k/uL RBC 2.79 L (3.80-5.40) m/uL Hgb 9.5 L (11.4-16.0) gm/dL Hct 29.3 L (34.0-46.0) % MCV 105.0 H (80.0-100.0) fL Plt Count (150-450) k/uL Neutrophils # (Manual) (1.3-7.7) k/uL Lymphocytes # (Manual) (1.0-4.8) k/uL Chloride 113 H (98-107) mmol/L Calcium 7.9 L (8.4-10.2) mg/dL Total Bilirubin 1.7 H (0.2-1.3) mg/dL Alkaline Phosphatase (38-126) U/L Total Protein 3.8 L (6.3-8.2) g/dL Albumin 2.0 L (3.5-5.0) g/dL IgG (700.0-1600.0) mg/dL IgM (40.0-280.0) mg/dL Microbiology - Last 24 Hours (Table) 11/17/18 13:17 Blood Culture - Preliminary Blood No Growth after 48 hours Assessment and Plan (1) Sepsis Narrative/Plan: * Secondary to C. diff colitis * Patient with fevers and neutropenia * Continue antibiotic current regimen per ID recommendations * Hemodynamically stable at present continue to monitor Current Visit: No Status: Acute Code(s): A41.9 - SEPSIS, UNSPECIFIED ORGANISM SNOMED Code(s): 46002568 (2) Febrile neutropenia Narrative/Plan: * Continue immunosuppressive neutropenic precautions * antibiotics per ID recommendations Current Visit: Yes Status: Acute Code(s): D70.9 - NEUTROPENIA, UNSPECIFIED; R50.81 - FEVER PRESENTING WITH CONDITIONS CLASSIFIED ELSEWHERE SNOMED Code(s): 203403726 (3) C. difficile colitis Narrative/Plan: * Having ongoing diarrhea and loose stools, positive for C. diff * Continue PO vancomycin with Questran and Flagyl Current Visit: Yes Status: Acute Code(s): A04.72 - ENTEROCOLITIS D/T CLOSTRIDIUM DIFFICILE, NOT SPCF RECUR SNOMED Code(s): 790596029 (4) Pancytopenia Narrative/Plan: * Likely chemotherapy induced patient was prepped is scheduled to have Rituxan last Sunday however counts were too low at that time * Appreciate hematology oncology recommendations * Patient initiated on Zarxio, IVIG ordered * Hemoglobin currently stable we'll transfuse if less than 7 and platelets less than 10 Current Visit: Yes Status: Acute Code(s): D61.818 - OTHER PANCYTOPENIA SNOMED Code(s): 803663960 (5) Hypokalemia Current Visit: Yes Status: Acute Code(s): E87.6 - HYPOKALEMIA SNOMED Code(s): 07890133
[2018-11-20] MEDS: SERTRALINE 100 MG TAB PO SCH (09:53)
[2018-11-20] MEDS: valACYclovir HCL 1,000 MG TABLET PO SCH ×3 (09:53→21:02)
[2018-11-20] MEDS: FILGRASTIM-SNDZ 480 MCG/0.8 ML SYRINGE SQ SCH (09:53)
[2018-11-20] MEDS: ASPIRIN 81 MG PO SCH (09:53)
[2018-11-20] MEDS: POTASSIUM CHLORIDE ER 20 MEQ TAB.ER PO SCH (09:53)
[2018-11-20] MEDS: RIVAROXABAN 20 MG TAB PO SCH (09:53)
[2018-11-20] MEDS: OXYBUTYNIN XL 5 MG TAB.ER.24 PO SCH (09:53)
[2018-11-20] MEDS: CHOLESTYRAMINE (WITH SUGAR) 4 GM PACKET PO SCH ×2 (09:53→21:02)
[2018-11-20] MEDS: PANTOPRAZOLE 40 MG/10 ML VIAL IV SCH (09:53)
[2018-11-20] MEDS: MAG HYDROX/AL HYDROX/SIMETH 30 ML, LIDOCAINE VISCOUS 30 ML, diphenhydrAMINE ELIXIR 75 M... PO SCH ×12 (10:22→21:51)
[2018-11-20 10:56] LABS: RBC Fragments Present
[2018-11-20 10:57] LABS: Tear Drop Cells Present
[2018-11-20 11:10] LABS: Glucose,Whole Blood 99 mg/dL (75-99)
--- NOTE | 2018-11-20 12:29 | P.PN ---
Subjective Progress Note Date: 11/20/18 Principal diagnosis: C-Diff Colitis while Neutropenic Still frequent stools and diffuse abdominal pain, will benefit from TPN Objective - Vital Signs Vital signs: Vital Signs Temp 97.9 F 11/20/18 11:13 Pulse 68 11/20/18 11:13 Resp 18 11/20/18 11:13 BP 117/67 11/20/18 11:13 Pulse Ox 99 11/20/18 11:13 Intake & Output 11/19/18 11/20/18 11/20/18 18:59 06:59 18:59 Intake Total 800 1300 Balance 800 1300 Intake: Intake, IV Titration 800 1200 Amount Dextrose 5%-0.9% NaCl 1, 700 1200 000 ml @ 100 mls/hr IV . Q10H BETTE Rx#:[id number] metroNIDAZOLE-NS PMX 500 100 mg In Saline 1 100ml.bag @ 100 mls/hr IVPB Q8H BETTE Rx#:[id number] Oral 100 Other: Voiding Method Toilet Toilet # Voids 2 # Bowel Movements 3 2 - Exam General: Alert and Oriented x3, No Acute Distress Head: Normocytic, Atraumatic Neck: Supple Mouth: No Lesions, No Thrush Eyes: Non-sclerotic No Palpable cervical, supraclavicular, axillary adenopathy Heart: Regular Rate, Regular Rhythm Lungs: Clear to Ausculations, No Wheeze, No Rhonchi, Diminishe bilateral lower lobes, No increased respiratory effort noted Abdomen: obese, tender Extremities: No Edema, Equal Strength Neurological: No Focal Defects: No sensory or motor deficits noted Psych: Calm and cooperative - Labs CBC & Chem 7: 11/20/18 07:25 11/20/18 07:25 Labs: Abnormal Lab Results - Last 24 Hours (Table) 11/18/18 11/20/18 11/20/18 Range/Units 07:25 07:25 07:25 WBC 0.7 L* (3.8-10.6) k/uL RBC 2.79 L (3.80-5.40) m/uL Hgb 9.5 L (11.4-16.0) gm/dL Hct 29.3 L (34.0-46.0) % MCV 105.0 H (80.0-100.0) fL Plt Count 54 L (150-450) k/uL Chloride 113 H (98-107) mmol/L Calcium 7.9 L (8.4-10.2) mg/dL Total Bilirubin 1.7 H (0.2-1.3) mg/dL Total Protein 3.8 L (6.3-8.2) g/dL Albumin 2.0 L (3.5-5.0) g/dL IgG 547.0 L (700.0-1600.0) mg/dL IgM <16.9 L (40.0-280.0) mg/dL Microbiology - Last 24 Hours (Table) 11/17/18 13:17 Blood Culture - Preliminary Blood No Growth after 48 hours Assessment and Plan (1) Febrile neutropenia Current Visit: No Status: Acute Code(s): D70.9 - NEUTROPENIA, UNSPECIFIED; R50.81 - FEVER PRESENTING WITH CONDITIONS CLASSIFIED ELSEWHERE SNOMED Code(s): 436514072 (2) Mucositis Current Visit: No Status: Acute Code(s): K12.30 - ORAL MUCOSITIS (ULCERATIVE), UNSPECIFIED SNOMED Code(s): 10791012 Plan: Assessement and Recommendations: Pancytopenia: - Start granix - Will order IVIG, patient neutropenic and last IGG 400, hx: NHL and febrile neutropenia - Transfuse hemoglobin less than 7 or platlets less than 10 Febrile Neutropenia - Infectious disease is following - Vancomycin and Valtrex C-diff Positive/Diarrhea: -Continue Questran - Monitoring electrolytes per primary team Mucocytis: - Kools Ordered NHL: - Treatment with maintenance Rituxan - Primary Oncologist Dr. Balderrama Recent Shingles: - Right thigh. PLan: - NPO with Sips as high risk perforation while neutropenic and extent of inflammation - ID to manage C-Diff, ?fecal transplant if still consideration - TPN when able.
[2018-11-20 14:55] LABS: Phosphorus 3.1 mg/dL (2.5-4.5)
[2018-11-20] MEDS ORDERED: MVI, ADULT NO.4 WITH VIT K 10 ML, TRACE (CONC-1ML/DOSE) 1 ML in AMINO ACID 5%-D15W+LYTE... IV SCH ×3 (16:00)
--- NOTE | 2018-11-20 16:32 | PN ---
PROGRESS NOTE DATE OF SERVICE: 11/20/2018. REASON FOR FOLLOWUP VISIT: C difficile colitis. INTERVAL HISTORY: The patient is currently afebrile. The patient has been breathing comfortably. Denies having any chest pain, shortness of breath or cough. abdominal pain and diarrhea, though frequency has slightly decreased. No blood or mucus in the stools. PHYSICAL EXAMINATION: Blood pressure 117/67, pulse of 68, temperature of 97.9. She is 99% on room air. General description is a middle-aged female lying in bed in no distress. RESPIRATORY SYSTEM: Unlabored breathing. Clear to auscultation anteriorly. HEART: S1, S2. Regular rate and rhythm. ABDOMEN: Soft. Mildly tender in the left lower quadrant area. No guarding or rigidity. LABS: Hemoglobin 9.5, white count 0.7 with a BUN of 15, creatinine 0.73. DIAGNOSTIC IMPRESSION AND PLAN: Patient admitted to hospital with febrile neutropenia in this patient who did have evidence of Clostridium difficile colitis. Patient to continue with oral vancomycin while monitoring clinical course closely. Continue with supportive care. MMODL / IJN: [id number] /
[2018-11-20] MEDS: FAT EMULSION 20% 250 ML in EMPTY BAG 1 BAG IV SCH (16:52)
[2018-11-20 17:19] LABS: Glucose,Whole Blood 101 mg/dL (75-99)
[2018-11-20] MEDS: ATORVASTATIN 40 MG TAB PO SCH (21:02)
[2018-11-20] MEDS: GABAPENTIN 300 MG CAP PO SCH (21:02)
[2018-11-21 00:16] LABS: Glucose,Whole Blood 99 mg/dL (75-99)
[2018-11-21] MEDS: INSULIN ASPART (NovoLOG) 100 UNIT/ML VIAL SQ SCH ×4 (00:43→17:34)
[2018-11-21] MEDS: DEXTROSE 5%-0.9% NACL 1,000 ML IV SCH ×2 (04:06→09:44)
[2018-11-21] MEDS: VANCOMYCIN ORAL SOLUTION 250 MG/5 ML BOTTLE PO SCH ×3 (04:59→17:28)
[2018-11-21] MEDS: CHERRY FLAVOR 60 ML BOTTLE PO SCH ×3 (04:59→17:28)
[2018-11-21] MEDS: LEVOTHYROXINE 137 MCG TAB PO SCH (05:00)
[2018-11-21 06:38] LABS: Glucose,Whole Blood 124 mg/dL (75-99)
[2018-11-21 08:03] LABS: African American GFR (CKD) >90 (>60 ml/min/1.73 sqM); Anion Gap 5 mmol/L; Blood Urea Nitrogen 13 mg/dL (7-17); Calcium 7.9 mg/dL (8.4-10.2); Carbon Dioxide 20 mmol/L (22-30); Chloride 115 mmol/L (98-107); Glucose 98 mg/dL (74-99); Magnesium 1.9 mg/dL (1.6-2.3); Phosphorus 3.6 mg/dL (2.5-4.5); Potassium 3.7 mmol/L (3.5-5.1); Sodium 140 mmol/L (137-145)
[2018-11-21 09:11] LABS: Ionized Calcium 5.1 mg/dL (4.5-5.3)
[2018-11-21] MEDS: valACYclovir HCL 1,000 MG TABLET PO SCH ×3 (09:32→21:41)
[2018-11-21] MEDS: PANTOPRAZOLE 40 MG/10 ML VIAL IV SCH (09:32)
[2018-11-21] MEDS: CHOLESTYRAMINE (WITH SUGAR) 4 GM PACKET PO SCH ×2 (09:32→21:41)
[2018-11-21] MEDS: metroNIDAZOLE-NS PMX 500 MG in SALINE 1 100ML.BAG IVPB SCH ×2 (09:32→15:53)
[2018-11-21] MEDS: MAG HYDROX/AL HYDROX/SIMETH 30 ML, LIDOCAINE VISCOUS 30 ML, diphenhydrAMINE ELIXIR 75 M... PO SCH ×12 (09:32→21:41)
[2018-11-21] MEDS: OXYBUTYNIN XL 5 MG TAB.ER.24 PO SCH (09:32)
[2018-11-21] MEDS: FILGRASTIM-SNDZ 480 MCG/0.8 ML SYRINGE SQ SCH (09:32)
[2018-11-21] MEDS: SERTRALINE 100 MG TAB PO SCH (09:32)
[2018-11-21] MEDS: RIVAROXABAN 20 MG TAB PO SCH (09:33)
[2018-11-21] MEDS: LISINOPRIL 20 MG TAB PO SCH (09:33)
[2018-11-21] MEDS: POTASSIUM CHLORIDE ER 20 MEQ TAB.ER PO SCH (09:33)
[2018-11-21] MEDS: ASPIRIN 81 MG PO SCH (09:33)
[2018-11-21 11:30] LABS: Glucose,Whole Blood 147 mg/dL (75-99)
[2018-11-21 12:59] LABS: HGB 9.5 gm/dL (11.4-16.0); Hypochromasia Moderate; MCH 33.9 pg (25.0-35.0); MCHC 31.6 g/dL (31.0-37.0); Macrocytosis Moderate; Mean Platelet Volume 8.6; RBC 2.81 m/uL (3.80-5.40); RDW 14.8 % (11.5-15.5)
[2018-11-21 13:02] LABS: Platelet Count 41 k/uL (150-450); WBC 0.6 k/uL (3.8-10.6)
--- NOTE | 2018-11-21 13:11 | P.PN ---
Subjective Progress Note Date: 11/21/18 Principal diagnosis: C-Diff Colitis while Neutropenic Objective - Vital Signs Vital signs: Vital Signs Temp 98.7 F 11/21/18 11:35 Pulse 71 11/21/18 11:35 Resp 20 11/21/18 11:35 BP 150/71 11/21/18 11:35 Pulse Ox 99 11/21/18 11:35 Intake & Output 11/20/18 11/21/18 11/21/18 18:59 06:59 18:59 Intake Total 800 590 Balance 800 590 Weight 112.037 kg Intake: Intake, IV Titration 800 Amount Dextrose 5%-0.9% NaCl 1, 700 000 ml @ 100 mls/hr IV . Q10H BETTE Rx#:[id number] metroNIDAZOLE-NS PMX 500 100 mg In Saline 1 100ml.bag @ 100 mls/hr IVPB Q8H BETTE Rx#:[id number] Oral 590 Other: Voiding Method Toilet # Voids 2 # Bowel Movements 3 - Exam General: Alert and Oriented x3, No Acute Distress Head: Normocytic, Atraumatic Neck: Supple Mouth: No Lesions, No Thrush Eyes: Non-sclerotic No Palpable cervical, supraclavicular, axillary adenopathy Heart: Regular Rate, Regular Rhythm Lungs: Clear to Ausculations, No Wheeze, No Rhonchi, Diminishe bilateral lower lobes, No increased respiratory effort noted Abdomen: obese, tender Extremities: No Edema, Equal Strength Neurological: No Focal Defects: No sensory or motor deficits noted Psych: Calm and cooperative - Labs CBC & Chem 7: 11/20/18 07:25 11/21/18 07:29 Labs: Abnormal Lab Results - Last 24 Hours (Table) 11/20/18 11/21/18 11/21/18 Range/Units 17:18 06:37 07:29 Chloride 115 H (98-107) mmol/L Carbon Dioxide 20 L (22-30) mmol/L POC Glucose (mg/dL) 101 H 124 H (75-99) mg/dL Calcium 7.9 L (8.4-10.2) mg/dL 11/21/18 Range/Units 11:25 Chloride (98-107) mmol/L Carbon Dioxide (22-30) mmol/L POC Glucose (mg/dL) 147 H (75-99) mg/dL Calcium (8.4-10.2) mg/dL Microbiology - Last 24 Hours (Table) 11/17/18 13:17 Blood Culture - Preliminary Blood No Growth after 72 hours Assessment and Plan (1) Febrile neutropenia Current Visit: No Status: Acute Code(s): D70.9 - NEUTROPENIA, UNSPECIFIED; R50.81 - FEVER PRESENTING WITH CONDITIONS CLASSIFIED ELSEWHERE SNOMED Code(s): 090725553 (2) Mucositis Current Visit: No Status: Acute Code(s): K12.30 - ORAL MUCOSITIS (UL CERATIVE), UNSPECIFIED SNOMED Code(s): 81924838 Plan: Assessement and Recommendations: Pancytopenia: - Start granix - Will order IVIG, patient neutropenic and last IGG 400, hx: NHL and febrile neutropenia - Transfuse hemoglobin less than 7 or platlets less than 10 Febrile Neutropenia - Infectious disease is following - Vancomycin and Valtrex C-diff Positive/Diarrhea: -Continue Questran - Monitoring electrolytes per primary team Mucocytis: - Kools Ordered NHL: - Treatment with maintenance Rituxan - Primary Oncologist Dr. Balderrama Recent Shingles: - Right thigh. PLan: - NPO with Sips as high risk perforation while neutropenic and extent of inflammation - ID to manage C-Diff, ?fecal transplant if still consideration - TPN when able. - Plan for Bone Marrow Biopsy for pancytopenia
[2018-11-21] MEDS ORDERED: POTASSIUM CHLORIDE 20 MEQ in WATER FOR INJECTION 1 100ML.BAG IVPB ONE (14:00)
--- NOTE | 2018-11-21 17:07 | PN ---
PROGRESS NOTE DATE OF SERVICE: 11/21/2018. REASON FOR FOLLOWUP: C difficile colitis. INTERVAL HISTORY: The patient is currently afebrile. The patient has been breathing comfortably. Abdominal pain has improved. Her diarrhea seems to have slowed down; she had one episode this morning. The patient has been complaining of not being fed. PHYSICAL EXAMINATION: Blood pressure is 150/71 with a pulse of 71, temperature 98.7. She is 99% on room air. General description is a middle-aged female lying in bed in no distress. RESPIRATORY SYSTEM: Unlabored breathing. Clear to auscultation anteriorly. HEART: S1, S2. Regular rate and rhythm. ABDOMEN: Soft. No tenderness. LABS: Hemoglobin 9.5, white count 0.6. BUN of 13, creatinine 0.70. DIAGNOSTIC IMPRESSION AND PLAN: Patient admitted to hospital with sepsis. Source is recurrent C difficile colitis, currently covered with oral vancomycin and Questran will be slowed increased per Medical and Oncology. Continue oral vancomycin. Continue with supportive care. MMODL / IJN: [id number] /
[2018-11-21] MEDS: MAGNESIUM SULFATE-D5W PMX 1 GM in DEXTROSE/WATER 1 100ML.BAG IVPB SCH ×2 (17:26→19:00)
[2018-11-21 17:32] LABS: Glucose,Whole Blood 117 mg/dL (75-99)
[2018-11-21] MEDS: FAT EMULSION 20% 250 ML in EMPTY BAG 1 BAG IV SCH (18:08)
[2018-11-21] MEDS: 1: MVI, ADULT NO.4 WITH VIT K 10 ML, TRACE (CONC-1ML/DOSE) 1 ML in AMINO ACID 5%-D15W+LY IV SCH ×3 (18:08)
[2018-11-21] MEDS: ATORVASTATIN 40 MG TAB PO SCH (21:41)
[2018-11-21] MEDS: GABAPENTIN 300 MG CAP PO SCH (21:41)
[2018-11-22 00:12] LABS: Glucose,Whole Blood 121 mg/dL (75-99)
[2018-11-22] MEDS: INSULIN ASPART (NovoLOG) 100 UNIT/ML VIAL SQ SCH ×4 (00:19→18:13)
[2018-11-22] MEDS: metroNIDAZOLE-NS PMX 500 MG in SALINE 1 100ML.BAG IVPB SCH ×3 (00:24→16:24)
[2018-11-22] MEDS: VANCOMYCIN ORAL SOLUTION 250 MG/5 ML BOTTLE PO SCH ×4 (00:24→18:15)
[2018-11-22] MEDS: CHERRY FLAVOR 60 ML BOTTLE PO SCH ×4 (00:24→18:15)
[2018-11-22 05:57] LABS: Glucose,Whole Blood 148 mg/dL (75-99)
[2018-11-22] MEDS: DEXTROSE 5%-0.9% NACL 1,000 ML IV SCH ×3 (06:34→15:22)
[2018-11-22] MEDS: LEVOTHYROXINE 137 MCG TAB PO SCH (06:35)
[2018-11-22] MEDS: 1: MVI, ADULT NO.4 WITH VIT K 10 ML, TRACE (CONC-1ML/DOSE) 1 ML in AMINO ACID 5%-D15W+LY IV SCH ×6 (08:03→22:52)
[2018-11-22] MEDS: PANTOPRAZOLE 40 MG/10 ML VIAL IV SCH (08:03)
[2018-11-22] MEDS: FILGRASTIM-SNDZ 480 MCG/0.8 ML SYRINGE SQ SCH (08:04)
[2018-11-22] MEDS: CHOLESTYRAMINE (WITH SUGAR) 4 GM PACKET PO SCH ×2 (08:04→21:09)
[2018-11-22] MEDS: RIVAROXABAN 20 MG TAB PO SCH (08:04)
[2018-11-22] MEDS: LISINOPRIL 20 MG TAB PO SCH (08:04)
[2018-11-22] MEDS: POTASSIUM CHLORIDE ER 20 MEQ TAB.ER PO SCH (08:04)
[2018-11-22] MEDS: valACYclovir HCL 1,000 MG TABLET PO SCH ×3 (08:04→21:09)
[2018-11-22] MEDS: ASPIRIN 81 MG PO SCH (08:04)
[2018-11-22] MEDS: SERTRALINE 100 MG TAB PO SCH (08:05)
[2018-11-22] MEDS: MAG HYDROX/AL HYDROX/SIMETH 30 ML, LIDOCAINE VISCOUS 30 ML, diphenhydrAMINE ELIXIR 75 M... PO SCH ×12 (08:07→21:10)
[2018-11-22] MEDS: OXYBUTYNIN XL 5 MG TAB.ER.24 PO SCH (08:18)
[2018-11-22] MEDS: HYDROcodone/APAP 10-325MG 1 EACH TAB PO PRN (08:33)
[2018-11-22 08:51] LABS: HCT 30.5 % (34.0-46.0); HGB 10.1 gm/dL (11.4-16.0); MCH 34.4 pg (25.0-35.0); MCV 104.3 fL (80.0-100.0); Macrocytosis Slight; Mean Platelet Volume 8.7; RBC 2.92 m/uL (3.80-5.40); RDW 14.6 % (11.5-15.5)
[2018-11-22 09:00] LABS: African American GFR (CKD) >90 (>60 ml/min/1.73 sqM); Anion Gap 7 mmol/L; Blood Urea Nitrogen 12 mg/dL (7-17); Calcium 7.8 mg/dL (8.4-10.2); Carbon Dioxide 19 mmol/L (22-30); Chloride 114 mmol/L (98-107); Glucose 137 mg/dL (74-99); Magnesium 1.9 mg/dL (1.6-2.3); Phosphorus 3.5 mg/dL (2.5-4.5); Potassium 3.6 mmol/L (3.5-5.1); Sodium 140 mmol/L (137-145)
[2018-11-22 09:07] LABS: WBC 0.6 k/uL (3.8-10.6)
[2018-11-22 09:08] LABS: Platelet Count 47 k/uL (150-450)
[2018-11-22 10:51] LABS: Poikilocytosis (M) Present
--- NOTE | 2018-11-22 11:26 | P.PN ---
Subjective Progress Note Date: 11/21/18 Patient seen and examined at bedside, continue neutropenic C. diff precautions. Patient afebrile overnight, still having episodes of diarrhea had about 6 last night and had one this morning reports that starting to get formed, currently on ice chips nothing by mouth with TPN going. Objective - Vital Signs Vital signs: Vital Signs Temp 98.2 F 11/22/18 05:00 Pulse 65 11/22/18 05:00 Resp 18 11/22/18 05:00 BP 128/59 11/22/18 05:00 Pulse Ox 97 11/22/18 05:00 Intake & Output 11/21/18 11/22/18 11/22/18 18:59 06:59 18:59 Intake Total 1110 Balance 1110 Weight 119.5 kg Intake: Intake, IV Titration 1110 Amount Amino Acid 5%-D15w+Lytes* 210 E* 1,000 ml @ 70 mls/hr IV .BY DURATION [facility] Rx#: [id number] Dextrose 5%-0.9% NaCl 1, 800 000 ml @ 100 mls/hr IV . Q10H [facility] Rx#:[id number] Magnesium Sulfate-D5w Pmx 100 1 gm In Dextrose/Water 1 100ml.bag @ 100 mls/hr IVPB Q1H [facility] Rx#: [id number] Other: Voiding Method Toilet Toilet # Voids 2 3 # Bowel Movements 1 - Exam Constitutional: No acute distress, conversant, pleasant Eyes: Anicteric sclerae, moist conjunctiva, no lid-lag, PERRLA ENMT: NC/AT,Oropharynx clear, no erythema, exudates Neck:Supple, FROM, no masses, or JVD, No carotid bruits; No thyromegaly Lungs: Clear to auscultation, Clear to percussion, Normal respiratory effort, no accessory muscle use Cardiovascular: Heart regular in rate and rhythm, No murmurs, gallops, or rubs no peripheral edema Abdominal: Tender to palpation in the lower abdomen nom distended, no guarding, no rebound or rigidity, Normoactive bowel sounds No hepatomegaly, No splenomegaly, No palpable mass No abdominal wall hernia noted Skin: Normal temperature, tone, texture, turgor, No induration No subcutaneous nodules, No rash, lesions, No ulcers Extremities:No digital cyanosis No clubbing, Pedal pulses intact and symmetrical Radial pulses intact and symmetrical Normal gait and station, No calf tenderness Psychiatric: Alert and oriented to person, place and time, Appropriate affect Intact judgement Neuro: Muscles Strength 5/5 in all 4 extremities, Sensation to light touch grossly present throughout, Cranial nerves II-XII grossly intact. No focal sensory deficits - Labs CBC & Chem 7: 11/22/18 08:03 11/22/18 08:03 Labs: Abnormal Lab Results - Last 24 Hours (Table) 11/21/18 11/21/18 11/21/18 Range/Units 07:29 11:25 17:30 WBC 0.6 L* (3.8-10.6) k/uL RBC 2.81 L (3.80-5.40) m/uL Hgb 9.5 L (11.4-16.0) gm/dL Hct 30.0 L (34.0-46.0) % MCV 107.0 H (80.0-100.0) fL Plt Count 41 L (150-450) k/uL Chloride (98-107) mmol/L Carbon Dioxide (22-30) mmol/L Glucose (74-99) mg/dL POC Glucose (mg/dL) 147 H 117 H (75-99) mg/dL Calcium (8.4-10.2) mg/dL 11/22/18 11/22/18 11/22/18 Range/Units 00:07 05:56 08:03 WBC (3.8-10.6) k/uL RBC (3.80-5.40) m/uL Hgb (11.4-16.0) gm/dL Hct (34.0-46.0) % MCV (80.0-100.0) fL Plt Count (150-450) k/uL Chloride 114 H (98-107) mmol/L Carbon Dioxide 19 L (22-30) mmol/L Glucose 137 H (74-99) mg/dL POC Glucose (mg/dL) 121 H 148 H (75-99) mg/dL Calcium 7.8 L (8.4-10.2) mg/dL 11/22/18 Range/Units 08:03 WBC 0.6 L* (3.8-10.6) k/uL RBC 2.92 L (3.80-5.40) m/uL Hgb 10.1 L (11.4-16.0) gm/dL Hct 30.5 L (34.0-46.0) % MCV 104.3 H (80.0-100.0) fL Plt Count 47 L (150-450) k/uL Chloride (98-107) mmol/L Carbon Dioxide (22-30) mmol/L Glucose (74-99) mg/dL POC Glucose (mg/dL) (75-99) mg/dL Calcium (8.4-10.2) mg/dL Microbiology - Last 24 Hours (Table) 11/17/18 13:17 Blood Culture - Preliminary Blood No Growth after 96 hours Assessment and Plan (1) Sepsis Narrative/Plan: * Secondary to C. diff colitis * Patient with fevers and neutropenia * Continue antibiotic current regimen per ID recommendations * Hemodynamically stable at present continue to monitor Current Visit: No Status: Acute Code(s): A41.9 - SEPSIS, UNSPECIFIED ORGAN ISM SNOMED Code(s): 91631240 (2) Febrile neutropenia Narrative/Plan: * Continue immunosuppressive neutropenic precautions * antibiotics per ID recommendations Current Visit: Yes Status: Acute Code(s): D70.9 - NEUTROPENIA, UNSPECIFIED; R50.81 - FEVER PRESENTING WITH CONDITIONS CLASSIFIED ELSEWHERE SNOMED Code(s): 152183526 (3) C. difficile colitis Narrative/Plan: * Having ongoing diarrhea and loose stools, positive for C. diff * Continue PO vancomycin with Questran and Flagyl Current Visit: Yes Status: Acute Code(s): A04.72 - ENTEROCOLITIS D/T CLOSTRIDIUM DIFFICILE, NOT SPCF RECUR SNOMED Code(s): 037882001 (4) Pancytopenia Narrative/Plan: * Likely chemotherapy induced patient was prepped is scheduled to have Rituxan last Sunday however counts were too low at that time * Appreciate hematology oncology recommendations patient may need bone marrow biopsy * Patient initiated on Zarxio, IVIG ordered * Hemoglobin currently stable we'll transfuse if less than 7 and platelets less than 10 Current Visit: Yes Status: Acute Code(s): D61.818 - OTHER PANCYTOPENIA SNOMED Code(s): 705841790 (5) Hypokalemia Narrative/Plan: * Likely secondary to diarrhea * We'll replace and recheck Current Visit: Yes Status: Resolved Code(s): E87.6 - HYPOKALEMIA SNOMED Code(s): 04306231
--- NOTE | 2018-11-22 11:35 | P.PN ---
Subjective Progress Note Date: 11/22/18 Patient seen and examined at bedside, continue neutropenic C. diff precautions. Patient afebrile overnight, still having episodes of diarrhea had about 4 overnight and had one this morning although which are no longer runny but now loose reports that starting to get formed, currently on ice chips nothing by mouth with TPN going. Patient also on Valtrex for herpetic mucositis Objective - Vital Signs Vital signs: Vital Signs Temp 98.2 F 11/22/18 05:00 Pulse 65 11/22/18 05:00 Resp 18 11/22/18 05:00 BP 128/59 11/22/18 05:00 Pulse Ox 97 11/22/18 05:00 Intake & Output 11/21/18 11/22/18 11/22/18 18:59 06:59 18:59 Intake Total 1110 Balance 1110 Weight 119.5 kg Intake: Intake, IV Titration 1110 Amount Amino Acid 5%-D15w+Lytes* 210 E* 1,000 ml @ 70 mls/hr IV .BY DURATION [facility] Rx#: [id number] Dextrose 5%-0.9% NaCl 1, 800 000 ml @ 100 mls/hr IV . Q10H [facility] Rx#:[id number] Magnesium Sulfate-D5w Pmx 100 1 gm In Dextrose/Water 1 100ml.bag @ 100 mls/hr IVPB Q1H [facility] Rx#: [id number] Other: Voiding Method Toilet Toilet # Voids 2 3 # Bowel Movements 1 - Exam Constitutional: No acute distress, conversant, pleasant Eyes: Anicteric sclerae, moist conjunctiva, no lid-lag, PERRLA ENMT: NC/AT,Oropharynx clear, no erythema, exudates Neck:Supple, FROM, no masses, or JVD, No carotid bruits; No thyromegaly Lungs: Clear to auscultation, Clear to percussion, Normal respiratory effort, no accessory muscle use Cardiovascular: Heart regular in rate and rhythm, No murmurs, gallops, or rubs no peripheral edema Abdominal: Tender to palpation in the lower abdomen nom distended, no guarding, no rebound or rigidity, Normoactive bowel sounds No hepatomegaly, No splenomegaly, No palpable mass No abdominal wall hernia noted Skin: Normal temperature, tone, texture, turgor, No induration No subcutaneous nodules, No rash, lesions, No ulcers Extremities:No digital cyanosis No clubbing, Pedal pulses intact and symmetrical Radial pulses intact and symmetrical Normal gait and station, No calf tenderness Psychiatric: Alert and oriented to person, place and time, Appropriate affect Intact judgement Neuro: Muscles Strength 5/5 in all 4 extremities, Sensation to light touch grossly present throughout, Cranial nerves II-XII grossly intact. No focal sensory deficits - Labs CBC & Chem 7: 11/22/18 08:03 11/22/18 08:03 Labs: Abnormal Lab Results - Last 24 Hours (Table) 11/21/18 11/21/18 11/22/18 Range/Units 07:29 17:30 00:07 WBC 0.6 L* (3.8-10.6) k/uL RBC 2.81 L (3.80-5.40) m/uL Hgb 9.5 L (11.4-16.0) gm/dL Hct 30.0 L (34.0-46.0) % MCV 107.0 H (80.0-100.0) fL Plt Count 41 L (150-450) k/uL Chloride (98-107) mmol/L Carbon Dioxide (22-30) mmol/L Glucose (74-99) mg/dL POC Glucose (mg/dL) 117 H 121 H (75-99) mg/dL Calcium (8.4-10.2) mg/dL 11/22/18 11/22/18 11/22/18 Range/Units 05:56 08:03 08:03 WBC 0.6 L* (3.8-10.6) k/uL RBC 2.92 L (3.80-5.40) m/uL Hgb 10.1 L (11.4-16.0) gm/dL Hct 30.5 L (34.0-46.0) % MCV 104.3 H (80.0-100.0) fL Plt Count 47 L (150-450) k/uL Chloride 114 H (98-107) mmol/L Carbon Dioxide 19 L (22-30) mmol/L Glucose 137 H (74-99) mg/dL POC Glucose (mg/dL) 148 H (75-99) mg/dL Calcium 7.8 L (8.4-10.2) mg/dL Microbiology - Last 24 Hours (Table) 11/17/18 13:17 Blood Culture - Preliminary Blood No Growth after 96 hours Assessment and Plan (1) Sepsis Narrative/Plan: * Secondary to C. diff colitis * Patient with fevers and neutropenia * Continue antibiotic current regimen per ID recommendations * Hemodynamically stable at present continue to monitor Current Visit: No Status: Resolved Code(s): A41.9 - SEPSIS, UNSPECIFIED ORGANISM SNOMED Code(s): 81637125 (2) Febrile neutropenia Narrative/Plan: * Continue immunosuppressive neutropenic precautions * antibiotics per ID recommendations Current Visit: Yes Status: Acute Code(s): D70.9 - NEUTROPENIA, UNSPECIFIED; R50.81 - FEVER PRESENTING WITH CONDITIONS CLASSIFIED ELSEWHERE SNOMED Code(s): 342001876 (3) C. difficile colitis Narrative/Plan: * Having ongoing diarrhea and loose stools, positive for C. diff * Continue PO vancomycin with Questran and Flagyl Current Visit: Yes Status: Acute Code(s): A04.72 - ENTEROCOLITIS D/T CLOSTRIDIUM DIFFICILE, NOT SPCF RECUR SNOMED Code(s): 534889146 (4) Pancytopenia Narrative/Plan: * Likely chemotherapy induced patient was prepped is scheduled to have Rituxan last Sunday however counts were too low at that time * Appreciate hematology oncology recommendations patient may need bone marrow biopsy * Patient initiated on Zarxio, IVIG ordered * Hemoglobin currently stable we'll transfuse if less than 7 and platelets less than 10 Current Visit: Yes Status: Acute Code(s): D61.818 - OTHER PANCYTOPENIA SNOMED Code(s): 265748717 (5) Hypokalemia Narrative/Plan: * Likely secondary to diarrhea * We'll replace and recheck Current Visit: Yes Status: Resolved Code(s): E87.6 - HYPOKALEMIA SNOMED Code(s): 89290526
[2018-11-22 11:41] LABS: Glucose,Whole Blood 169 mg/dL (75-99)
[2018-11-22] MEDS ORDERED: POTASSIUM CHLORIDE 20 MEQ in WATER FOR INJECTION 1 100ML.BAG IVPB ONE (12:00)
[2018-11-22] MEDS ORDERED: MAGNESIUM SULFATE-D5W PMX 1 GM in DEXTROSE/WATER 1 100ML.BAG IVPB ONE (12:00)
--- NOTE | 2018-11-22 12:46 | P.PN ---
Subjective Progress Note Date: 11/22/18 Principal diagnosis: C-Diff Colitis while Neutropenic TPN Running, no improvement in blood counts, Platlets less than 50K. will recheck if still less than hold xarelto/ Objective - Vital Signs Vital signs: Vital Signs Temp 98.2 F 11/22/18 05:00 Pulse 65 11/22/18 05:00 Resp 18 11/22/18 05:00 BP 128/59 11/22/18 05:00 Pulse Ox 97 11/22/18 05:00 Intake & Output 11/21/18 11/22/18 11/22/18 18:59 06:59 18:59 Intake Total 1110 Balance 1110 Weight 119.5 kg Intake: Intake, IV Titration 1110 Amount Amino Acid 5%-D15w+Lytes* 210 E* 1,000 ml @ 70 mls/hr IV .BY DURATION BETTE Rx#: [id number] Dextrose 5%-0.9% NaCl 1, 800 000 ml @ 100 mls/hr IV . Q10H [facility] Rx#:[id number] Magnesium Sulfate-D5w Pmx 100 1 gm In Dextrose/Water 1 100ml.bag @ 100 mls/hr IVPB Q1H [facility] Rx#: [id number] Other: Voiding Method Toilet Toilet # Voids 2 3 # Bowel Movements 1 - Exam General: Alert and Oriented x3, No Acute Distress Head: Normocytic, Atraumatic Neck: Supple Mouth: No Lesions, No Thrush Eyes: Non-sclerotic No Palpable cervical, supraclavicular, axillary adenopathy Heart: Regular Rate, Regular Rhythm Lungs: Clear to Ausculations, No Wheeze, No Rhonchi, Diminishe bilateral lower lobes, No increased respiratory effort noted Abdomen: obese, tender Extremities: No Edema, Equal Strength Neurological: No Focal Defects: No sensory or motor deficits noted Psych: Calm and cooperative - Labs CBC & Chem 7: 11/22/18 08:03 11/22/18 08:03 Labs: Abnormal Lab Results - Last 24 Hours (Table) 11/21/18 11/21/18 11/22/18 Range/Units 07:29 17:30 00:07 WBC 0.6 L* (3.8-10.6) k/uL RBC 2.81 L (3.80-5.40) m/uL Hgb 9.5 L (11.4-16.0) gm/dL Hct 30.0 L (34.0-46.0) % MCV 107.0 H (80.0-100.0) fL Plt Count 41 L (150-450) k/uL Chloride (98-107) mmol/L Carbon Dioxide (22-30) mmol/L Glucose (74-99) mg/dL POC Glucose (mg/dL) 117 H 121 H (75-99) mg/dL Calcium (8.4-10.2) mg/dL 11/22/18 11/22/18 11/22/18 Range/Units 05:56 08:03 08:03 WBC 0.6 L* (3.8-10.6) k/uL RBC 2.92 L (3.80-5.40) m/uL Hgb 10.1 L (11.4-16.0) gm/dL Hct 30.5 L (34.0-46.0) % MCV 104.3 H (80.0-100.0) fL Plt Count 47 L (150-450) k/uL Chloride 114 H (98-107) mmol/L Carbon Dioxide 19 L (22-30) mmol/L Glucose 137 H (74-99) mg/dL POC Glucose (mg/dL) 148 H (75-99) mg/dL Calcium 7.8 L (8.4-10.2) mg/dL 11/22/18 Range/Units 11:37 WBC (3.8-10.6) k/uL RBC (3.80-5.40) m/uL Hgb (11.4-16.0) gm/dL Hct (34.0-46.0) % MCV (80.0-100.0) fL Plt Count (150-450) k/uL Chloride (98-107) mmol/L Carbon Dioxide (22-30) mmol/L Glucose (74-99) mg/dL POC Glucose (mg/dL) 169 H (75-99) mg/dL Calcium (8.4-10.2) mg/dL Microbiology - Last 24 Hours (Table) 11/17/18 13:17 Blood Culture - Preliminary Blood No Growth after 96 hours Assessment and Plan (1) Febrile neutropenia Current Visit: No Status: Acute Code(s): D70.9 - NEUTROPENIA, UNSPECIFIED; R50.81 - FEVER PRESENTING WITH CONDITIONS CLASSIFIED ELSEWHERE SNOMED Code(s): 976544117 (2) Mucositis Current Visit: No Status: Acute Code(s): K12.30 - ORAL MUCOSITIS (ULCERATIVE), UNSPECIFIED SNOMED Code(s): 87265812 Plan: Assessement and Recommendations: Pancytopenia: - Start granix - Will order IVIG, patient neutropenic and last IGG 400, hx: NHL and febrile neutropenia - Transfuse hemoglobin less than 7 or platlets less than 10 Febrile Neutropenia - Infectious disease is following - Vancomycin and Valtrex C-diff Positive/Diarrhea: -Continue Questran - Monitoring electrolytes per primary team Mucocytis: - Kools Ordered NHL: - Treatment with maintenance Rituxan - Primary Oncologist Dr. Balderrama Recent Shingles: - Right thigh. PLan: - NPO with Sips as high risk perforation while neutropenic and extent of inflammation - ID to manage C-Diff, - TPN Continue - Plan for Bone Marrow Biopsy for pancytopenia, likely Next week if no improvement - Hold Xarelto if platlelets less than 50K
--- NOTE | 2018-11-22 15:06 | PN ---
PROGRESS NOTE DATE OF SERVICE: 11/22/2018 REASON FOR FOLLOWUP: C. difficile colitis. INTERVAL HISTORY: The patient is currently afebrile. The patient has been complaining of not being fed. The patient did have only one soft stool. Abdominal pain has improved. No nausea, vomiting. No chest pain, shortness of breath or cough. PHYSICAL EXAMINATION: Blood pressure is 147/77 with a pulse of 52, temperature of 98, she is 97% on room air. General description is a middle aged female lying in bed in no distress. RESPIRATORY SYSTEM: Unlabored breathing, clear to auscultation anteriorly. HEART: S1, S2. Regular rate and rhythm. ABDOMEN: Soft, no tenderness. LABS: Hemoglobin is 10.1, white count of 0.6, BUN of 12, creatinine 0.67. DIAGNOSTIC IMPRESSION AND PLAN: Patient in the hospital with sepsis and the patient did have evidence of febrile neutropenia and C difficile colitis. Currently covered with oral vancomycin 250 q.6 to continue the patient for some clinical improvement and continue supportive care. MMODL / IJN: [id number] /
[2018-11-22 17:39] LABS: Glucose,Whole Blood 115 mg/dL (75-99)
[2018-11-22] MEDS: FAT EMULSION 20% 250 ML in EMPTY BAG 1 BAG IV SCH (18:14)
[2018-11-22] MEDS: ATORVASTATIN 40 MG TAB PO SCH (21:09)
[2018-11-22] MEDS: GABAPENTIN 300 MG CAP PO SCH (21:09)
[2018-11-22 21:36] LABS: HCT 32.1 % (34.0-46.0); HGB 10.7 gm/dL (11.4-16.0); MCH 34.3 pg (25.0-35.0); MCHC 33.2 g/dL (31.0-37.0); MCV 103.3 fL (80.0-100.0); Macrocytosis Slight; Mean Platelet Volume 9.3; RBC 3.11 m/uL (3.80-5.40); RDW 15.1 % (11.5-15.5)
[2018-11-22 21:41] LABS: WBC 0.8 k/uL (3.8-10.6)
[2018-11-22 21:42] LABS: Platelet Count 55 k/uL (150-450)
[2018-11-22 22:05] LABS: Ovalocytes Present
[2018-11-23 00:06] LABS: Glucose,Whole Blood 132 mg/dL (75-99)
[2018-11-23] MEDS: INSULIN ASPART (NovoLOG) 100 UNIT/ML VIAL SQ SCH ×4 (00:22→17:35)
[2018-11-23] MEDS: VANCOMYCIN ORAL SOLUTION 250 MG/5 ML BOTTLE PO SCH ×4 (00:23→17:17)
[2018-11-23] MEDS: CHERRY FLAVOR 60 ML BOTTLE PO SCH ×4 (00:23→17:17)
[2018-11-23] MEDS: metroNIDAZOLE-NS PMX 500 MG in SALINE 1 100ML.BAG IVPB SCH ×3 (00:23→17:13)
[2018-11-23] MEDS: HYDROcodone/APAP 10-325MG 1 EACH TAB PO PRN ×2 (00:23→21:43)
[2018-11-23] MEDS: DEXTROSE 5%-0.9% NACL 1,000 ML IV SCH ×2 (03:00→17:12)
[2018-11-23 05:58] LABS: Glucose,Whole Blood 154 mg/dL (75-99)
[2018-11-23] MEDS: LEVOTHYROXINE 137 MCG TAB PO SCH (06:15)
[2018-11-23 07:40] LABS: HCT 31.5 % (34.0-46.0); HGB 10.2 gm/dL (11.4-16.0); MCH 33.3 pg (25.0-35.0); MCHC 32.5 g/dL (31.0-37.0); MCV 102.5 fL (80.0-100.0); Macrocytosis Slight; Mean Platelet Volume 9.3; RBC 3.07 m/uL (3.80-5.40); RDW 15.3 % (11.5-15.5)
[2018-11-23 08:01] LABS: African American GFR (CKD) >90 (>60 ml/min/1.73 sqM); Anion Gap 6 mmol/L; Blood Urea Nitrogen 12 mg/dL (7-17); Calcium 7.9 mg/dL (8.4-10.2); Carbon Dioxide 21 mmol/L (22-30); Chloride 113 mmol/L (98-107); Glucose 126 mg/dL (74-99); Magnesium 1.8 mg/dL (1.6-2.3); Phosphorus 3.6 mg/dL (2.5-4.5); Potassium 3.7 mmol/L (3.5-5.1); Sodium 140 mmol/L (137-145)
[2018-11-23 08:02] LABS: Platelet Count 53 k/uL (150-450); WBC 0.9 k/uL (3.8-10.6)
[2018-11-23] MEDS: ASPIRIN 81 MG PO SCH (09:17)
[2018-11-23] MEDS: CHOLESTYRAMINE (WITH SUGAR) 4 GM PACKET PO SCH ×2 (09:17→21:32)
[2018-11-23] MEDS: valACYclovir HCL 1,000 MG TABLET PO SCH ×3 (09:18→21:31)
[2018-11-23] MEDS: RIVAROXABAN 20 MG TAB PO SCH ×2 (09:18→09:28)
[2018-11-23] MEDS: PANTOPRAZOLE 40 MG/10 ML VIAL IV SCH (09:18)
[2018-11-23] MEDS: SERTRALINE 100 MG TAB PO SCH (09:18)
[2018-11-23] MEDS: POTASSIUM CHLORIDE ER 20 MEQ TAB.ER PO SCH (09:18)
[2018-11-23] MEDS: LISINOPRIL 20 MG TAB PO SCH (09:18)
[2018-11-23] MEDS: OXYBUTYNIN XL 5 MG TAB.ER.24 PO SCH (09:28)
[2018-11-23] MEDS: MAG HYDROX/AL HYDROX/SIMETH 30 ML, LIDOCAINE VISCOUS 30 ML, diphenhydrAMINE ELIXIR 75 M... PO SCH ×8 (09:28→15:38)
[2018-11-23 12:04] LABS: HCT 30.6 % (34.0-46.0); HGB 10.3 gm/dL (11.4-16.0); MCH 34.4 pg (25.0-35.0); MCHC 33.7 g/dL (31.0-37.0); MCV 101.9 fL (80.0-100.0); Macrocytosis Slight; Mean Platelet Volume 8.9
[2018-11-23 12:08] LABS: Glucose,Whole Blood 155 mg/dL (75-99)
[2018-11-23 12:12] LABS: Platelet Count 46 k/uL (150-450)
[2018-11-23 12:54] LABS: Poikilocytosis (M) Present
[2018-11-23 13:03] LABS: Neutrophils % (M) 33 %
[2018-11-23 13:04] LABS: Band Neutrophils % 7 %; Eosinophils # (M) 0.12 k/uL (0-0.7); Lymphocytes # (M) 0.13 k/uL (1.0-4.8); Metamyelocytes # (M) 0.01 k/uL (0); Metamyelocytes % 1 %; Monocytes # (M) 0.34 k/uL (0-1.0); Nucleated Red Blood Cells 0 /100 WBC (0-0); Total Cells Counted 100
[2018-11-23 13:07] LABS: Poikilocytosis (M) Present
--- NOTE | 2018-11-23 13:47 | P.PN ---
Subjective Progress Note Date: 11/23/18 Patient doing well premature to the restroom and back, reports that her diarrhea has stopped had 1 bowel movement since yesterday that was formed. No acute events overnight, patient continues on TPN. Continues to be pancytopenic, reports her abdominal pain has resolved Objective - Vital Signs Vital signs: Vital Signs Temp 97.9 F 11/23/18 04:47 Pulse 62 11/23/18 08:15 Resp 18 11/23/18 08:15 BP 133/66 11/23/18 04:47 Pulse Ox 97 11/23/18 04:47 Intake & Output 11/22/18 11/23/18 11/23/18 18:59 06:59 18:59 Intake Total 2171 150 Balance 2171 150 Weight 119.5 kg 121 kg Intake: Intake, IV Titration 2171 150 Amount Dextrose 5%-0.9% NaCl 1, 400 150 000 ml @ 100 mls/hr IV . Q10H [facility] Rx#:[id number] Magnesium Sulfate-D5w Pmx 100 1 gm In Dextrose/Water 1 100ml.bag @ 100 mls/hr IVPB ONCE ONE Rx#: [id number] Mvi, Adult No.4 with Vit 1571 K 10 ml Trace (Conc-1Ml/ Dose) 1 ml In Amino Acid 5%-D15w+Lytes*E* 1,000 ml @ 70 mls/hr IV .BY DURATION [facility] Rx#: [id number] Potassium Chloride 20 meq 100 In Water For Injection 1 100ml.bag @ 50 mls/hr IVPB ONCE ONE Rx#: [id number] Other: Voiding Method Toilet Toilet Toilet # Voids 2 2 - Exam Constitutional: No acute distress, conversant, pleasant Eyes: Anicteric sclerae, moist conjunctiva, no lid-lag, PERRLA ENMT: NC/AT,Oropharynx clear, no erythema, exudates Neck:Supple, FROM, no masses, or JVD, No carotid bruits; No thyromegaly Lungs: Clear to auscultation, Clear to percussion, Normal respiratory effort, no accessory muscle use Cardiovascular: Heart regular in rate and rhythm, No murmurs, gallops, or rubs no peripheral edema Abdominal: a soft nontender nondistended, no guarding, no rebound or rigidity, Normoactive bowel sounds No hepatomegaly, No splenomegaly, No palpable mass No abdominal wall hernia noted Skin: Normal temperature, tone, texture, turgor, No induration No subcutaneous nodules, No rash, lesions, No ulcers Extremities:No digital cyanosis No clubbing, Pedal pulses intact and symmetrical Radial pulses intact and symmetrical Normal gait and station, No calf tenderness Psychiatric: Alert and oriented to person, place and time, Appropriate affect Intact judgement Neuro: Muscles Strength 5/5 in all 4 extremities, Sensation to light touch grossly present throughout, Cranial nerves II-XII grossly intact. No focal sensory deficits - Labs CBC & Chem 7: 11/23/18 11:30 11/23/18 07:21 Labs: Abnormal Lab Results - Last 24 Hours (Table) 11/22/18 11/22/18 11/23/18 Range/Units 17:35 21:09 00:05 WBC 0.8 L* (3.8-10.6) k/uL RBC 3.11 L (3.80-5.40) m/uL Hgb 10.7 L (11.4-16.0) gm/dL Hct 32.1 L (34.0-46.0) % MCV 103.3 H (80.0-100.0) fL Plt Count 55 L (150-450) k/uL Neutrophils # (Manual) (1.3-7.7) k/uL Lymphocytes # (Manual) (1.0-4.8) k/uL Metamyelocytes # (Man) (0) k/uL Chloride (98-107) mmol/L Carbon Dioxide (22-30) mmol/L Glucose (74-99) mg/dL POC Glucose (mg/dL) 115 H 132 H (75-99) mg/dL Calcium (8.4-10.2) mg/dL 11/23/18 11/23/18 11/23/18 Range/Units 05:56 07:21 07:21 WBC 0.9 L* (3.8-10.6) k/uL RBC 3.07 L (3.80-5.40) m/uL Hgb 10.2 L (11.4-16.0) gm/dL Hct 31.5 L (34.0-46.0) % MCV 102.5 H (80.0-100.0) fL Plt Count 53 L (150-450) k/uL Neutrophils # (Manual) (1.3-7.7) k/uL Lymphocytes # (Manual) (1.0-4.8) k/uL Metamyelocytes # (Man) (0) k/uL Chloride 113 H (98-107) mmol/L Carbon Dioxide 21 L (22-30) mmol/L Glucose 126 H (74-99) mg/dL POC Glucose (mg/dL) 154 H (75-99) mg/dL Calcium 7.9 L (8.4-10.2) mg/dL 11/23/18 11/23/18 Range/Units 11:30 12:06 WBC 1.0 L* (3.8-10.6) k/uL RBC 3.00 L (3.80-5.40) m/uL Hgb 10.3 L (11.4-16.0) gm/dL Hct 30.6 L (34.0-46.0) % MCV 101.9 H (80.0-100.0) fL Plt Count 46 L (150-450) k/uL Neutrophils # (Manual) 0.40 L* (1.3-7.7) k/uL Lymphocytes # (Manual) 0.13 L (1.0-4.8) k/uL Metamyelocytes # (Man) 0.01 H (0) k/uL Chloride (98-107) mmol/L Carbon Dioxide (22-30) mmol/L Glucose (74-99) mg/dL POC Glucose (mg/dL) 155 H (75-99) mg/dL Calcium (8.4-10.2) mg/dL Microbiology - Last 24 Hours (Table) 11/17/18 13:17 Blood Culture - Preliminary Blood No Growth after 120 hours Assessment and Plan (1) Sepsis Narrative/Plan: * Secondary to C. diff colitis * Patient with fevers and neutropenia * Continue antibiotic current regimen per ID recommendations * Hemodynamically stable at present continue to monitor Current Visit: No Status: Resolved Code(s): A41.9 - SEPSIS, UNSPECIFIED ORGANISM SNOMED Code(s): 99400766 (2) Febrile neutropenia Narrative/Plan: * Continue immunosuppressive neutropenic precautions * antibiotics per ID recommendations Current Visit: Yes Status: Acute Code(s): D70.9 - NEUTROPENIA, UNSPECIFIED; R50.81 - FEVER PRESENTING WITH CONDITIONS CLASSIFIED ELSEWHERE SNOMED Code(s): 340231206 (3) C. difficile colitis Narrative/Plan: * The patient's diarrhea has resolved * Continue PO vancomycin with Questran and we'll discontinue Flagyl Current Visit: Yes Status: Resolved Code(s): A04.72 - ENTEROCOLITIS D/T CLOSTRIDIUM DIFFICILE, NOT SPCF RECUR SNOMED Code(s): 479783397 (4) Pancytopenia Narrative/Plan: * Likely chemotherapy induced patient was prepped is scheduled to have Rituxan last Sunday however counts were too low at that time * Appreciate hematology oncology recommendations patient may need bone marrow b iopsy * Patient initiated on Zarxio, IVIG ordered * Hemoglobin currently stable we'll transfuse if less than 7 and platelets less than 10 Current Visit: Yes Status: Acute Code(s): D61.818 - OTHER PANCYTOPENIA SNOMED Code(s): 606011579 (5) Hypokalemia Narrative/Plan: * Likely secondary to diarrhea * We'll replace and recheck Current Visit: Yes Status: Resolved Code(s): E87.6 - HYPOKALEMIA SNOMED Code(s): 17379239 Plan: * Continue to monitor blood counts
[2018-11-23] MEDS: FILGRASTIM-SNDZ 480 MCG/0.8 ML SYRINGE SQ SCH (14:12)
[2018-11-23] MEDS: 1: MVI, ADULT NO.4 WITH VIT K 10 ML, TRACE (CONC-1ML/DOSE) 1 ML in AMINO ACID 5%-D15W+LY IV SCH ×3 (14:13)
[2018-11-23] MEDS: MAGNESIUM SULFATE-D5W PMX 1 GM in DEXTROSE/WATER 1 100ML.BAG IVPB SCH ×2 (14:14→17:12)
[2018-11-23] MEDS: FAT EMULSION 20% 250 ML in EMPTY BAG 1 BAG IV SCH (17:17)
[2018-11-23 17:33] LABS: Glucose,Whole Blood 165 mg/dL (75-99)
[2018-11-23] MEDS: GABAPENTIN 300 MG CAP PO SCH (21:31)
[2018-11-23] MEDS: ATORVASTATIN 40 MG TAB PO SCH (21:31)
[2018-11-23 23:48] LABS: Glucose,Whole Blood 155 mg/dL (75-99)
[2018-11-24] MEDS: DEXTROSE 5%-0.9% NACL 1,000 ML IV SCH ×3 (00:13→23:52)
[2018-11-24] MEDS: MAG HYDROX/AL HYDROX/SIMETH 30 ML, LIDOCAINE VISCOUS 30 ML, diphenhydrAMINE ELIXIR 75 M... PO SCH ×16 (00:13→20:46)
[2018-11-24] MEDS: metroNIDAZOLE-NS PMX 500 MG in SALINE 1 100ML.BAG IVPB SCH ×2 (00:14→09:23)
[2018-11-24] MEDS: CHERRY FLAVOR 60 ML BOTTLE PO SCH ×5 (00:14→23:52)
[2018-11-24] MEDS: VANCOMYCIN ORAL SOLUTION 250 MG/5 ML BOTTLE PO SCH ×5 (00:14→23:52)
[2018-11-24] MEDS: INSULIN ASPART (NovoLOG) 100 UNIT/ML VIAL SQ SCH ×4 (00:14→18:14)
[2018-11-24] MEDS: 1: MVI, ADULT NO.4 WITH VIT K 10 ML, TRACE (CONC-1ML/DOSE) 1 ML in AMINO ACID 5%-D15W+LY IV SCH ×9 (04:22→18:15)
[2018-11-24 06:10] LABS: Glucose,Whole Blood 139 mg/dL (75-99)
[2018-11-24] MEDS: LEVOTHYROXINE 137 MCG TAB PO SCH (06:14)
[2018-11-24 07:43] LABS: HGB 10.1 gm/dL (11.4-16.0); MCH 33.7 pg (25.0-35.0); MCHC 32.4 g/dL (31.0-37.0); MCV 104.1 fL (80.0-100.0); Macrocytosis Slight; RBC 2.98 m/uL (3.80-5.40); RDW 14.7 % (11.5-15.5)
[2018-11-24 07:52] LABS: Platelet Count 48 k/uL (150-450); WBC 0.8 k/uL (3.8-10.6)
[2018-11-24 08:25] LABS: African American GFR (CKD) >90 (>60 ml/min/1.73 sqM); Anion Gap 3 mmol/L; Blood Urea Nitrogen 12 mg/dL (7-17); Calcium 7.9 mg/dL (8.4-10.2); Carbon Dioxide 25 mmol/L (22-30); Chloride 111 mmol/L (98-107); Glucose 150 mg/dL (74-99); Magnesium 1.9 mg/dL (1.6-2.3); Phosphorus 3.7 mg/dL (2.5-4.5); Potassium 3.8 mmol/L (3.5-5.1); Sodium 139 mmol/L (137-145)
[2018-11-24 08:48] LABS: Poikilocytosis (M) Present
[2018-11-24] MEDS: OXYBUTYNIN XL 5 MG TAB.ER.24 PO SCH (09:24)
[2018-11-24] MEDS: FILGRASTIM-SNDZ 480 MCG/0.8 ML SYRINGE SQ SCH (09:24)
[2018-11-24] MEDS: CHOLESTYRAMINE (WITH SUGAR) 4 GM PACKET PO SCH ×2 (09:24→20:46)
[2018-11-24] MEDS: LISINOPRIL 20 MG TAB PO SCH (09:24)
[2018-11-24] MEDS: ASPIRIN 81 MG PO SCH (09:24)
[2018-11-24] MEDS: SERTRALINE 100 MG TAB PO SCH (09:25)
[2018-11-24] MEDS: valACYclovir HCL 1,000 MG TABLET PO SCH ×2 (09:25→16:53)
[2018-11-24] MEDS: POTASSIUM CHLORIDE ER 20 MEQ TAB.ER PO SCH (09:25)
[2018-11-24] MEDS: RIVAROXABAN 20 MG TAB PO SCH (09:25)
[2018-11-24] MEDS: PANTOPRAZOLE 40 MG/10 ML VIAL IV SCH (09:25)
--- NOTE | 2018-11-24 10:29 | P.PN ---
Subjective Progress Note Date: 11/24/18 Patient doing well premature to the restroom and back, reports that her diarrhea has stopped denies any bowel movement. No acute events overnight, patient continues on TPN. Continues to be pancytopenic, reports her abdominal pain has resolved Objective - Vital Signs Vital signs: Vital Signs Temp 98 F 11/24/18 05:00 Pulse 63 11/24/18 08:25 Resp 18 11/24/18 08:25 BP 149/72 11/24/18 05:00 Pulse Ox 97 11/24/18 05:00 Intake & Output 11/23/18 11/24/18 11/24/18 18:59 06:59 18:59 Intake Total 1011 Balance 1011 Weight 121.5 kg Intake: Intake, IV Titration 1011 Amount Mvi, Adult No.4 with Vit 1011 K 10 ml Trace (Conc-1Ml/ Dose) 1 ml In Amino Acid 5%-D15w+Lytes*E* 1,000 ml @ 70 mls/hr IV .BY DURATION [facility] Rx#: [id number] Other: Voiding Method Toilet Toilet Toilet # Voids 3 3 - Exam Constitutional: No acute distress, conversant, pleasant Eyes: Anicteric sclerae, moist conjunctiva, no lid-lag, PERRLA ENMT: NC/AT,Oropharynx clear, no erythema, exudates Neck:Supple, FROM, no masses, or JVD, No carotid bruits; No thyromegaly Lungs: Clear to auscultation, Clear to percussion, Normal respiratory effort, no accessory muscle use Cardiovascular: Heart regular in rate and rhythm, No murmurs, gallops, or rubs no peripheral edema Abdominal: a soft nontender nondistended, no guarding, no rebound or rigidity, Normoactive bowel sounds No hepatomegaly, No splenomegaly, No palpable mass No abdominal wall hernia noted Skin: Normal temperature, tone, texture, turgor, No induration No subcutaneous nodules, No rash, lesions, No ulcers Extremities:No digital cyanosis No clubbing, Pedal pulses intact and symmetrical Radial pulses intact and symmetrical Normal gait and station, No calf tenderness Psychiatric: Alert and oriented to person, place and time, Appropriate affect Intact judgement Neuro: Muscles Strength 5/5 in all 4 extremities, Sensation to light touch grossly present throughout, Cranial nerves II-XII grossly intact. No focal sensory deficits - Labs CBC & Chem 7: 11/24/18 07:19 11/24/18 07:19 Labs: Abnormal Lab Results - Last 24 Hours (Table) 11/23/18 11/23/18 11/23/18 Range/Units 11:30 12:06 17:32 WBC 1.0 L* (3.8-10.6) k/uL RBC 3.00 L (3.80-5.40) m/uL Hgb 10.3 L (11.4-16.0) gm/dL Hct 30.6 L (34.0-46.0) % MCV 101.9 H (80.0-100.0) fL Plt Count 46 L (150-450) k/uL Neutrophils # (Manual) 0.40 L* (1.3-7.7) k/uL Lymphocytes # (Manual) 0.13 L (1.0-4.8) k/uL Metamyelocytes # (Man) 0.01 H (0) k/uL Chloride (98-107) mmol/L Glucose (74-99) mg/dL POC Glucose (mg/dL) 155 H 165 H (75-99) mg/dL Calcium (8.4-10.2) mg/dL 11/23/18 11/24/18 11/24/18 Range/Units 23:46 06:08 07:19 WBC (3.8-10.6) k/uL RBC (3.80-5.40) m/uL Hgb (11.4-16.0) gm/dL Hct (34.0-46.0) % MCV (80.0-100.0) fL Plt Count (150-450) k/uL Neutrophils # (Manual) (1.3-7.7) k/uL Lymphocytes # (Manual) (1.0-4.8) k/uL Metamyelocytes # (Man) (0) k/uL Chloride 111 H (98-107) mmol/L Glucose 150 H (74-99) mg/dL POC Glucose (mg/dL) 155 H 139 H (75-99) mg/dL Calcium 7.9 L (8.4-10.2) mg/dL 11/24/18 Range/Units 07:19 WBC 0.8 L* (3.8-10.6) k/uL RBC 2.98 L (3.80-5.40) m/uL Hgb 10.1 L (11.4-16.0) gm/dL Hct 31.0 L (34.0-46.0) % MCV 104.1 H (80.0-100.0) fL Plt Count 48 L (150-450) k/uL Neutrophils # (Manual) (1.3-7.7) k/uL Lymphocytes # (Manual) (1.0-4.8) k/uL Metamyelocytes # (Man) (0) k/uL Chloride (98-107) mmol/L Glucose (74-99) mg/dL POC Glucose (mg/dL) (75-99) mg/dL Calcium (8.4-10.2) mg/dL Microbiology - Last 24 Hours (Table) 11/17/18 13:17 Blood Culture - Final Blood No Growth after 144 hours Assessment and Plan (1) Sepsis Narrative/Plan: * Secondary to C. diff colitis * Patient with fevers and neutropenia * Continue antibiotic current regimen per ID recommendations * Hemodynamically stable at present continue to monitor Current Visit: No Status: Resolved Code(s): A41.9 - SEPSIS, UNSPECIFIED ORGANISM SNOMED Code(s): 43342223 (2) Febrile neutropenia Narrative/Plan: * Continue immunosuppressive neutropenic precautions * antibiotics per ID recommendations Current Visit: Yes Status: Acute Code(s): D70.9 - NEUTROPENIA, UNSPECIFIED; R50.81 - FEVER PRESENTING WITH CONDITIONS CLASSIFIED ELSEWHERE SNOMED Code(s): 011527595 (3) C. difficile colitis Narrative/Plan: * The patient's diarrhea has resolved * Continue PO vancomycin with Questran and we'll discontinue Flagyl Current Visit: Yes Status: Resolved Code(s): A04.72 - ENTEROCOLITIS D/T CLOSTRIDIUM DIFFICILE, NOT SPCF RECUR SNOMED Code(s): 490570451 (4) Pancytopenia Narrative/Plan: * Likely chemotherapy induced patient was prepped is scheduled to have Rituxan last Sunday however counts were too low at that time * Appreciate hematology oncology recommendations patient may need bone marrow biopsy * Patient initiated on Zarxio, IVIG ordered * Hemoglobin currently stable we'll transfuse if less than 7 and platelets less than 10 Current Visit: Yes Status: Acute Code(s): D61.818 - OTHER PANCYTOPENIA SNOMED Code(s): 319972501 (5) Hypokalemia Narrative/Plan: * Likely secondary to diarrhea * We'll replace and recheck Current Visit: Yes Status: Resolved Code(s): E87.6 - HYPOKALEMIA SNOMED Code(s): 59715296 Plan: * Continue to monitor blood counts * Continued on TPN for now until neutropenia resolves
[2018-11-24 12:25] LABS: Glucose,Whole Blood 172 mg/dL (75-99)
[2018-11-24] MEDS ORDERED: fentaNYL (PF) 50 MCG/ML 2 ML AMP ONE (12:39)
[2018-11-24] MEDS ORDERED: PROPOFOL 10 MG/ML 20 ML VIAL IV ONE (12:39)
--- NOTE | 2018-11-24 13:00 | P.PN ---
Subjective Progress Note Date: 11/24/18 The patient was started on popsicles yesterday and tolerated that well. Abdominal pain is much improved. Bowel movements are still loose but improved significantly since admission. She is afebrile. No mouth sores. She has noted a recurrent skin rash in the right upper lateral back area Objective - Vital Signs Vital signs: Vital Signs Temp 98 F 11/24/18 05:00 Pulse 63 11/24/18 08:25 Resp 18 11/24/18 08:25 BP 149/72 11/24/18 05:00 Pulse Ox 97 11/24/18 05:00 Intake & Output 11/23/18 11/24/18 11/24/18 18:59 06:59 18:59 Intake Total 1011 Balance 1011 Weight 121.5 kg Intake: Intake, IV Titration 1011 Amount Mvi, Adult No.4 with Vit 1011 K 10 ml Trace (Conc-1Ml/ Dose) 1 ml In Amino Acid 5%-D15w+Lytes*E* 1,000 ml @ 70 mls/hr IV .BY DURATION [facility] Rx#: [id number] Other: Voiding Method Toilet Toilet Toilet # Voids 3 3 - Constitutional General appearance: Present: no acute distress - EENT Eyes: Present: EOMI ENT: Present: hearing grossly normal, normal oropharynx - Respiratory Respiratory: bilateral: CTA - Cardiovascular Rhythm: regular Heart sounds: normal: S1, S2 - Gastrointestinal General gastrointestinal: Present: normal bowel sounds, soft - Integumentary Integumentary: Present: rash (Confluent papular rash involving right upper lateral back below the shoulder blade and in fact very area. Reddish, no blisters but appears suggestive of) - Neurologic Neurologic: Present: CNII-XII intact - Musculoskeletal Musculoskeletal: Present: generalized weakness, strength equal bilaterally - Psychiatric Psychiatric: Present: A&O x's 3, appropriate affect - Labs CBC & Chem 7: 11/24/18 07:11/24/18 07:19 Labs: Abnormal Lab Results - Last 24 Hours (Table) 11/23/18 11/23/18 11/23/18 Range/Units 11:30 17:32 23:46 WBC (3.8-10.6) k/uL RBC (3.80-5.40) m/uL Hgb (11.4-16.0) gm/dL Hct (34.0-46.0) % MCV (80.0-100.0) fL Plt Count 46 L (150-450) k/uL Neutrophils # (Manual) 0.40 L* (1.3-7.7) k/uL Lymphocytes # (Manual) 0.13 L (1.0-4.8) k/uL Metamyelocytes # (Man) 0.01 H (0) k/uL Chloride (98-107) mmol/L Glucose (74-99) mg/dL POC Glucose (mg/dL) 165 H 155 H (75-99) mg/dL Calcium (8.4-10.2) mg/dL 11/24/18 11/24/18 11/24/18 Range/Units 06:08 07:19 07:19 WBC 0.8 L* (3.8-10.6) k/uL RBC 2.98 L (3.80-5.40) m/uL Hgb 10.1 L (11.4-16.0) gm/dL Hct 31.0 L (34.0-46.0) % MCV 104.1 H (80.0-100.0) fL Plt Count 48 L (150-450) k/uL Neutrophils # (Manual) (1.3-7.7) k/uL Lymphocytes # (Manual) (1.0-4.8) k/uL Metamyelocytes # (Man) (0) k/uL Chloride 111 H (98-107) mmol/L Glucose 150 H (74-99) mg/dL POC Glucose (mg/dL) 139 H (75-99) mg/dL Calcium 7.9 L (8.4-10.2) mg/dL 11/24/18 Range/Units 12:14 WBC (3.8-10.6) k/uL RBC (3.80-5.40) m/uL Hgb (11.4-16.0) gm/dL Hct (34.0-46.0) % MCV (80.0-100.0) fL Plt Count (150-450) k/uL Neutrophils # (Manual) (1.3-7.7) k/uL Lymphocytes # (Manual) (1.0-4.8) k/uL Metamyelocytes # (Man) (0) k/uL Chloride (98-107) mmol/L Glucose (74-99) mg/dL POC Glucose (mg/dL) 172 H (75-99) mg/dL Calcium (8.4-10.2) mg/dL Microbiology - Last 24 Hours (Table) 11/17/18 13:17 Blood Culture - Final Blood No Growth after 144 hours Assessment and Plan (1) Colitis Narrative/Plan: The patient had presented with colitis due to C. diff infection, in the setting of chronic persistent neutropenia. Therefore she was made nothing by mouth at admission. Though she remains neutropenic, abnormal symptoms are significantly improved. On abdominal exam there was no significant tenderness today. She was started on popsicles yesterday which she tolerated well. She will therefore be advanced to clear liquids today. Continue to monitor and advance diet very cautiously. Continue treatment for C. diff colitis per ID Current Visit: Yes Status: Acute Code(s): K52.9 - NONINFECTIVE GASTROENTERITIS AND COLITIS, UNSPECIFIED SNOMED Code(s): 64002812 (2) Febrile neutropenia Narrative/Plan: While neutropenia persists, fever has resolved. Blood and urine have remained negative for evidence of infection. Continue treatment per ID Current Visit: Yes Status: Acute Code(s): D70.9 - NEUTROPENIA, UNSPECIFIED; R50.81 - FEVER PRESENTING WITH CONDITIONS CLASSIFIED ELSEWHERE SNOMED Code(s): 333767949 (3) Pancytopenia Narrative/Plan: This occurred when the patient was on chemotherapy-Rituxan combination what has persisted despite her being off treatment for several months now. Etiology is unclear. WBC has remained low despite growth factor support during this admission, and prior admission. Therefore a bone marrow aspiration biopsy is planned. The procedure was discussed in detail with the patient and she is agreeable to the same. This will be set up in the coming week. Current Visit: Yes Status: Acute Code(s): D61.818 - OTHER PANCYTOPENIA SNOMED Code(s): 035425781 (4) NHL (non-Hodgkin's lymphoma) Narrative/Plan: This appears to be in remission at this time Current Visit: Yes Status: Chronic Priority: Medium Code(s): C85.90 - NON- HODGKIN LYMPHOMA, UNSPECIFIED, UNSPECIFIED SITE SNOMED Code(s): 454528530 Plan: Recurrent skin rash appears to be suggestive of shingles. Nursing will contact ID to assess the patient for treatment recommendations. She is already on Valtrex
[2018-11-24 17:47] LABS: Glucose,Whole Blood 153 mg/dL (75-99)
[2018-11-24] MEDS: FAT EMULSION 20% 250 ML in EMPTY BAG 1 BAG IV SCH (18:12)
[2018-11-24] MEDS: GABAPENTIN 300 MG CAP PO SCH (20:45)
[2018-11-24] MEDS: ATORVASTATIN 40 MG TAB PO SCH (20:45)
[2018-11-24] MEDS: HYDROcodone/APAP 10-325MG 1 EACH TAB PO PRN (20:45)
[2018-11-24] MEDS ORDERED: valACYclovir 500 MG TAB PO SCH (22:00)
[2018-11-24 23:48] LABS: Glucose,Whole Blood 130 mg/dL (75-99)
[2018-11-24] MEDS: ACYCLOVIR SODIUM 1,000 MG in SODIUM CHLORIDE 0.9% 250 ML IVPB SCH (23:52)
[2018-11-25] MEDS: HYDROcodone/APAP 10-325MG 1 EACH TAB PO PRN ×3 (03:53→20:26)
[2018-11-25] MEDS: INSULIN ASPART (NovoLOG) 100 UNIT/ML VIAL SQ SCH ×4 (04:56→18:39)
[2018-11-25] MEDS: DEXTROSE 5%-0.9% NACL 1,000 ML IV SCH ×2 (04:57→15:36)
[2018-11-25 05:45] LABS: Glucose,Whole Blood 160 mg/dL (75-99)
[2018-11-25] MEDS: VANCOMYCIN ORAL SOLUTION 250 MG/5 ML BOTTLE PO SCH ×3 (06:27→18:30)
[2018-11-25] MEDS: LEVOTHYROXINE 137 MCG TAB PO SCH (06:27)
[2018-11-25] MEDS: CHERRY FLAVOR 60 ML BOTTLE PO SCH ×3 (06:27→18:30)
[2018-11-25 08:52] LABS: HCT 30.5 % (34.0-46.0); HGB 9.8 gm/dL (11.4-16.0); MCH 33.6 pg (25.0-35.0); MCV 105.1 fL (80.0-100.0); Macrocytosis Moderate; Mean Platelet Volume 8.9; RBC 2.91 m/uL (3.80-5.40); RDW 14.7 % (11.5-15.5)
[2018-11-25 09:02] LABS: African American GFR (CKD) >90 (>60 ml/min/1.73 sqM); Anion Gap 4 mmol/L; Blood Urea Nitrogen 12 mg/dL (7-17); Calcium 7.9 mg/dL (8.4-10.2); Carbon Dioxide 26 mmol/L (22-30); Chloride 109 mmol/L (98-107); Glucose 165 mg/dL (74-99); Magnesium 1.7 mg/dL (1.6-2.3); Phosphorus 3.6 mg/dL (2.5-4.5); Potassium 3.4 mmol/L (3.5-5.1); Sodium 139 mmol/L (137-145)
[2018-11-25 09:08] LABS: WBC 0.7 k/uL (3.8-10.6)
[2018-11-25 09:09] LABS: Platelet Count 45 k/uL (150-450)
[2018-11-25] MEDS: 1: MVI, ADULT NO.4 WITH VIT K 10 ML, TRACE (CONC-1ML/DOSE) 1 ML in AMINO ACID 5%-D15W+LY IV SCH ×6 (10:49→10:54)
[2018-11-25] MEDS: MAG HYDROX/AL HYDROX/SIMETH 30 ML, LIDOCAINE VISCOUS 30 ML, diphenhydrAMINE ELIXIR 75 M... PO SCH ×8 (10:50→15:26)
[2018-11-25] MEDS: ACYCLOVIR SODIUM 1,000 MG in SODIUM CHLORIDE 0.9% 250 ML IVPB SCH ×2 (10:54→16:47)
[2018-11-25] MEDS: CHOLESTYRAMINE (WITH SUGAR) 4 GM PACKET PO SCH ×2 (11:01→20:23)
[2018-11-25] MEDS: POTASSIUM CHLORIDE ER 20 MEQ TAB.ER PO SCH (11:10)
[2018-11-25] MEDS: RIVAROXABAN 20 MG TAB PO SCH ×2 (11:10→11:14)
[2018-11-25] MEDS: LISINOPRIL 20 MG TAB PO SCH (11:10)
[2018-11-25] MEDS: ASPIRIN 81 MG PO SCH (11:10)
[2018-11-25] MEDS: PANTOPRAZOLE 40 MG/10 ML VIAL IV SCH (11:14)
[2018-11-25] MEDS: OXYBUTYNIN XL 5 MG TAB.ER.24 PO SCH (11:16)
[2018-11-25] MEDS: FILGRASTIM-SNDZ 480 MCG/0.8 ML SYRINGE SQ SCH (11:16)
[2018-11-25] MEDS: SERTRALINE 100 MG TAB PO SCH (11:17)
[2018-11-25] MEDS: POTASSIUM CHLORIDE 20 MEQ in WATER FOR INJECTION 1 100ML.BAG IVPB SCH ×2 (11:22→12:30)
[2018-11-25 12:32] LABS: Glucose,Whole Blood 174 mg/dL (75-99)
[2018-11-25] MEDS: MAGNESIUM SULFATE-D5W PMX 1 GM in DEXTROSE/WATER 1 100ML.BAG IVPB SCH ×2 (13:46→15:25)
--- NOTE | 2018-11-25 16:34 | P.PN ---
Subjective Progress Note Date: 11/25/18 Principal diagnosis: Persistent Clostridium difficile infection, pancytopenia that is persistent In follow-up today patient states formed bowel movements, abdomen is mildly tender, denies bleeding, she is tolerating clear liquid diet, fatigue is persistent and moderate to severe, patient is recuperating from shingles in the right axilla, she had them in the right groin, denies any postherpetic neuralgia, she is feeling very frustrated Objective - Vital Signs Vital signs: Vital Signs Temp 98 F 11/25/18 12:56 Pulse 77 11/25/18 12:56 Resp 17 11/25/18 12:56 BP 142/69 11/25/18 12:56 Pulse Ox 99 11/25/18 12:56 Intake & Output 11/24/18 11/25/18 11/25/18 18:59 06:59 18:59 Intake Total 1891.739 869 8723 Balance 1891.312 795 1738 Weight 121.5 kg 119.5 kg Intake: IV 210 560 Amino Acid 5%-D15w+Lytes* 210 560 E* 1,000 ml @ 70 mls/hr IV .BY DURATION [facility] Rx#: [id number] Intake, IV Titration 1771.914 981 8925 Amount Acyclovir Sodium 1,000 mg 250 In Sodium Chloride 0.9% 250 ml @ 270 mls/hr IVPB Q8HR [facility] Rx#:[id number] Dextrose 5%-0.9% NaCl 1, 800 150 400 000 ml @ 100 mls/hr IV . Q10H [facility] Rx#:[id number] Fat Emulsion 20% 250 ml 63 In Empty Bag 1 bag @ 21 mls/hr IV DAILY@1800 [facility] Rx#:[id number] Magnesium Sulfate-D5w Pmx 200 1 gm In Dextrose/Water 1 100ml.bag @ 100 mls/hr IVPB Q1H [facility] Rx#: [id number] Mvi, Adult No.4 with Vit 482.544 3506 K 10 ml Trace (Conc-1Ml/ Dose) 1 ml In Amino Acid 5%-D15w+Lytes*E* 1,000 ml @ 70 mls/hr IV .BY DURATION [facility] Rx#: [id number] Potassium Chloride 20 meq 200 In Water For Injection 1 100ml.bag @ 50 mls/hr IVPB Q2H [facility] Rx#: [id number] Oral 120 Other: Voiding Method Toilet Toilet Toilet # Voids 2 2 2 # Bowel Movements 1 2 1 - Constitutional General appearance: Present: cooperative, no acute distress, obese - EENT Eyes: Present: anicteric sclerae, EOMI ENT: Present: hearing grossly normal, normal oropharynx - Respiratory Respiratory: bilateral: CTA - Cardiovascular Rhythm: regular Heart sounds: normal: S1, S2 - Peripheral edema leg Peripheral Edema: bilateral: None - Gastrointestinal General gastrointestinal: Present: distended, normal bowel sounds, soft, tenderness. Absent: absent bowel sounds, decreased bowel sounds, hepatomegaly, hyperactive bowel sounds, organomegaly, rigid, scaphoid, splenomegaly, umbilical hernia, ventral hernia Localized gastrointestinal: tender: diffuse (mild) - Integumentary Integumentary: Present: pale - Neurologic Neurologic: Present: CNII-XII intact - Musculoskeletal Musculoskeletal: Present: strength equal bilaterally - Psychiatric Psychiatric: Present: A&O x's 3, appropriate affect, intact judgment & insight - Labs CBC & Chem 7: 11/25/18 08:15 11/25/18 08:15 Labs: Abnormal Lab Results - Last 24 Hours (Table) 11/24/18 11/24/18 11/25/18 Range/Units 17:45 23:46 05:42 WBC (3.8-10.6) k/uL RBC (3.80-5.40) m/uL Hgb (11.4-16.0) gm/dL Hct (34.0-46.0) % MCV (80.0-100.0) fL Plt Count (150-450) k/uL Potassium (3.5-5.1) mmol/L Chloride (98-107) mmol/L Glucose (74-99) mg/dL POC Glucose (mg/dL) 153 H 130 H 160 H (75-99) mg/dL Calcium (8.4-10.2) mg/dL 11/25/18 11/25/18 11/25/18 Range/Units 08:15 08:15 12:28 WBC 0.7 L* (3.8-10.6) k/uL RBC 2.91 L (3.80-5.40) m/uL Hgb 9.8 L (11.4-16.0) gm/dL Hct 30.5 L (34.0-46.0) % MCV 105.1 H (80.0-100.0) fL Plt Count 45 L (150-450) k/uL Potassium 3.4 L (3.5-5.1) mmol/L Chloride 109 H (98-107) mmol/L Glucose 165 H (74-99) mg/dL POC Glucose (mg/dL) 174 H (75-99) mg/dL Calcium 7.9 L (8.4-10.2) mg/dL Assessment and Plan (1) Febrile neutropenia Narrative/Plan: T-max 101.7F on admit, no fevers for > 48 hours. C-diff positive. On abx, ID following BC negative On GCSF, no change in WBC/ANC Current Visit: Yes Status: Acute Priority: High Code(s): D70.9 - NEUTROPENIA, UNSPECIFIED; R50.81 - FEVER PRESENTING WITH CONDITIONS CLASSIFIED ELSEWHERE SNOMED Code(s): 907922370 (2) C. difficile colitis Narrative/Plan: Persistent infection, likely secondary to chronically low white blood cell count. Patient continues on antibiotics per Infectious Disease. Current Visit: Yes Status: Chronic Priority: High Code(s): A04.72 - ENTEROCOLITIS D/T CLOSTRIDIUM DIFFICILE, NOT SPCF RECUR SNOMED Code(s): 964129604 (3) Pancytopenia Narrative/Plan: Bone marrow biopsy and aspirate plan for the a.m. No acute intervention needed for hemoglobin of 9.8. WBC of 0.7 is concerning but, patient has not had a response to G-CSF in the past, will not order at this time. Patient is on antibiotics and antivirals. Platelet count 45,000 today, p latelets need to be kept above 50,000 and she does require anticoagulation for DVT Current Visit: Yes Status: Chronic Priority: High Code(s): D61.818 - OTHER PANCYTOPENIA SNOMED Code(s): 793333176 (4) Non-Hodgkin lymphoma of extranodal and solid organ sites Narrative/Plan: History of, patient has not had treatment since at least August 2018. Since chemotherapy patient's CBC has not recovered. Plan is for bone marrow biopsy and aspirate in the a.m. for evaluation of the same. Dr. Kim had discussed the procedure with her previously, she had no questions today. Orders have been placed for scheduled procedure and consent. Immunoglobulins levels evaluated, adequate no need for supplementation at this time. Current Visit: No Status: Chronic Priority: High Code(s): C85.99 - NON- HODGKIN LYMPHOMA, UNSP, EXTRANODAL AND SOLID ORGAN SITES SNOMED Code(s): 925298462 (5) Shingles Narrative/Plan: No open lesions. No postherpetic neuralgia. Continue on antiviral medications as prescribed Current Visit: Yes Status: Acute Priority: Medium Code(s): B02.9 - ZOSTER WITHOUT COMPLICATIONS SNOMED Code(s): 5429879
[2018-11-25] MEDS: FAT EMULSION 20% 250 ML in EMPTY BAG 1 BAG IV SCH (18:30)
--- NOTE | 2018-11-25 18:45 | P.PN ---
Subjective Progress Note Date: 11/25/18 Principal diagnosis: C. diff, leukopenia Patient was seen and examined. No acute events overnight. Patient reports neuropathic pain around her right armpit, associated with shingles. Pain is well-controlled with Cavour. Also reports decently formed stools since admission. She denies any chest pain, shortness of breath or palpitations. No nausea or vomiting. No fever or chills. Objective - Vital Signs Vital signs: Vital Signs Temp 98 F 11/25/18 12:56 Pulse 77 11/25/18 12:56 Resp 17 11/25/18 12:56 BP 142/69 11/25/18 12:56 Pulse Ox 99 11/25/18 12:56 Intake & Output 11/24/18 11/25/18 11/25/18 18:59 06:59 18:59 Intake Total 1891.999 633 9483 Balance 1891.194 763 3061 Weight 121.5 kg 119.5 kg Intake: IV 210 560 Amino Acid 5%-D15w+Lytes* 210 560 E* 1,000 ml @ 70 mls/hr IV .BY DURATION [facility] Rx#: [id number] Intake, IV Titration 1771.565 961 5642 Amount Acyclovir Sodium 1,000 mg 250 In Sodium Chloride 0.9% 250 ml @ 270 mls/hr IVPB Q8HR [facility] Rx#:[id number] Dextrose 5%-0.9% NaCl 1, 800 150 400 000 ml @ 100 mls/hr IV . Q10H [facility] Rx#:[id number] Fat Emulsion 20% 250 ml 63 In Empty Bag 1 bag @ 21 mls/hr IV DAILY@1800 [facility] Rx#:[id number] Magnesium Sulfate-D5w Pmx 200 1 gm In Dextrose/Water 1 100ml.bag @ 100 mls/hr IVPB Q1H [facility] Rx#: [id number] Mvi, Adult No.4 with Vit 065.352 3067 K 10 ml Trace (Conc-1Ml/ Dose) 1 ml In Amino Acid 5%-D15w+Lytes*E* 1,000 ml @ 70 mls/hr IV .BY DURATION [facility] Rx#: [id number] Potassium Chloride 20 meq 200 In Water For Injection 1 100ml.bag @ 50 mls/hr IVPB Q2H [facility] Rx#: [id number] Oral 120 Other: Voiding Method Toilet Toilet Toilet # Voids 2 2 2 # Bowel Movements 1 2 1 - Exam General: [non toxic], [moderate distress], [appears at stated age] Derm: [warm], [dry] Head: [atraumatic], [normocephalic], [symmetric] Eyes: [EOMI], [no lid lag], [anicteric sclera] Mouth: [no lip lesion], [mucus membranes moist] Cardiovascular: [S1S2 reg], [no murmur], [positive DP pulse bilateral] Lungs: [CTA bilateral], [no rhonchi, no rales] , [no accessory muscle use] Abdominal: [soft], [nontender to palpation], [no guarding], [no appreciable organomegaly] Ext: [no gross muscle atrophy], [no edema], [no contractures], [vesicular rash over the right arm.] Neuro: [ CN II-XI grossly intact], [no focal neuro deficits] Psych: [Alert], [oriented], [appropriate affect] - Labs CBC & Chem 7: 11/25/18 08:15 11/25/18 08:15 Labs: Abnormal Lab Results - Last 24 Hours (Table) 11/24/18 11/25/18 11/25/18 Range/Units 23:46 05:42 08:15 WBC (3.8-10.6) k/uL RBC (3.80-5.40) m/uL Hgb (11.4-16.0) gm/dL Hct (34.0-46.0) % MCV (80.0-100.0) fL Plt Count (150-450) k/uL Potassium 3.4 L (3.5-5.1) mmol/L Chloride 109 H (98-107) mmol/L Glucose 165 H (74-99) mg/dL POC Glucose (mg/dL) 130 H 160 H (75-99) mg/dL Calcium 7.9 L (8.4-10.2) mg/dL 11/25/18 11/25/18 Range/Units 08:15 12:28 WBC 0.7 L* (3.8-10.6) k/uL RBC 2.91 L (3.80-5.40) m/uL Hgb 9.8 L (11.4-16.0) gm/dL Hct 30.5 L (34.0-46.0) % MCV 105.1 H (80.0-100.0) fL Plt Count 45 L (150-450) k/uL Potassium (3.5-5.1) mmol/L Chloride (98-107) mmol/L Glucose (74-99) mg/dL POC Glucose (mg/dL) 174 H (75-99) mg/dL Calcium (8.4-10.2) mg/dL Assessment and Plan Assessment: Assessment and Plan Sepsis due to C. diff colitis Hypokalemia Bicytopenia Elevated liver enzymes Factor V Leiden Hypothyroidism Hypertension Initially met septic criteria (T-max 101.7F, leukopenia with WBC count of 0.6, positive source of infection). Lactic acid negative. C. diff positive. UA negative. Blood culture negative at 144 hours. Plan: Continue Vancomycin by mouth. Continue D5 at 100 mL/h. Follow ID consultation. Contact precautions. Zofran as needed for nausea and vomiting. Continue Protonix twice a day. Cavour or morphine as needed for pain management. Potassium 3.4. Likely secondary to diarrhea. Plan: Replace via protocol. Daily CMP. Patient leukopenic to 0.7 platelet count 45. Plan: Follow hematology consultation. Daily CBC. Leukopenic precautions. Transfuse platelets if less than 10,000 or acute bleed. Plans for bone marrow biopsy tomorrow as per Oncology. Total bilirubin 2.2, AST 62, alkaline phosphatase 216. Hepatitis panel negative. Lipid panel within normal limits August 2018. Plan: Daily CMP. Needs adequate follow-up in the outpatient setting. Continue cholestyramine. Stable. Plans: Continue aspirin and Xarelto. Plan: Continue Synthroid. BP 142/69. Plan: Continue lisinopril. Monitor vitals, adjust medications as necessary.
[2018-11-25 19:06] LABS: Glucose,Whole Blood 154 mg/dL (75-99)
[2018-11-25] MEDS: ATORVASTATIN 40 MG TAB PO SCH (20:23)
[2018-11-25] MEDS: GABAPENTIN 300 MG CAP PO SCH (20:23)
--- NOTE | 2018-11-25 23:38 | PN ---
PROGRESS NOTE DATE OF SERVICE: 11/25/2018 REASON FOR FOLLOWUP: 1. C difficile colitis. 2. Herpes zoster. INTERVAL HISTORY: The patient is currently afebrile. The patient has been breathing comfortably. Denies any worsening of the rash on the right side of the trunk. The patient's appetite has improved. Abdominal pain has diminished in intensity. No nausea, no vomiting. PHYSICAL EXAMINATION: Blood pressure 135/73 with a pulse of 72, temperature 98. She is 100% on room air. General description is a middle-aged female lying in bed in no distress. RESPIRATORY SYSTEM: Unlabored breathing. Clear to auscultation anteriorly. HEART: S1, S2. Regular rate and rhythm. ABDOMEN: Soft. No tenderness. LABS: Hemoglobin 9.1, white count 0.7, BUN of 12, creatinine 0.56. DIAGNOSTIC IMPRESSION AND PLAN: 1. Patient admitted to hospital with sepsis. Source is C difficile colitis. Currently on oral vancomycin; to continue p.o. Needs 3-week course because of recurrent C difficile colitis. 2. Patient with herpes zoster and slight worsening despite being on oral Valtrex, with a question of possible decreased absorption because of her overall GI status. She has been switched over to IV and see response to it. MMODL / IJN: [id number] /
[2018-11-25 23:53] LABS: Glucose,Whole Blood 138 mg/dL (75-99)
[2018-11-26] MEDS: MAG HYDROX/AL HYDROX/SIMETH 30 ML, LIDOCAINE VISCOUS 30 ML, diphenhydrAMINE ELIXIR 75 M... PO SCH ×16 (00:06→20:47)
[2018-11-26] MEDS: INSULIN ASPART (NovoLOG) 100 UNIT/ML VIAL SQ SCH ×4 (00:11→17:44)
[2018-11-26] MEDS: VANCOMYCIN ORAL SOLUTION 250 MG/5 ML BOTTLE PO SCH ×4 (00:11→17:44)
[2018-11-26] MEDS: ACYCLOVIR SODIUM 1,000 MG in SODIUM CHLORIDE 0.9% 250 ML IVPB SCH ×3 (00:12→16:54)
[2018-11-26] MEDS: CHERRY FLAVOR 60 ML BOTTLE PO SCH ×4 (00:12→17:44)
[2018-11-26] MEDS: DEXTROSE 5%-0.9% NACL 1,000 ML IV SCH ×3 (00:13→20:46)
[2018-11-26] MEDS: 1: MVI, ADULT NO.4 WITH VIT K 10 ML, TRACE (CONC-1ML/DOSE) 1 ML in AMINO ACID 5%-D15W+LY IV SCH ×6 (02:33→18:15)
[2018-11-26 05:39] LABS: Glucose,Whole Blood 155 mg/dL (75-99)
[2018-11-26] MEDS: LEVOTHYROXINE 137 MCG TAB PO SCH (06:01)
[2018-11-26 07:24] LABS: Glucose,Whole Blood 171 mg/dL (75-99)
[2018-11-26] MEDS: RIVAROXABAN 20 MG TAB PO SCH (07:53)
[2018-11-26] MEDS: ASPIRIN 81 MG PO SCH (07:58)
[2018-11-26] MEDS: CHOLESTYRAMINE (WITH SUGAR) 4 GM PACKET PO SCH ×2 (07:59→20:46)
[2018-11-26] MEDS: PANTOPRAZOLE 40 MG/10 ML VIAL IV SCH (07:59)
[2018-11-26] MEDS: SERTRALINE 100 MG TAB PO SCH (07:59)
[2018-11-26] MEDS: LISINOPRIL 20 MG TAB PO SCH (07:59)
[2018-11-26] MEDS: POTASSIUM CHLORIDE ER 20 MEQ TAB.ER PO SCH (07:59)
[2018-11-26] MEDS: OXYBUTYNIN XL 5 MG TAB.ER.24 PO SCH (07:59)
[2018-11-26] MEDS: HYDROcodone/APAP 10-325MG 1 EACH TAB PO PRN ×2 (08:00→16:54)
[2018-11-26 08:39] LABS: African American GFR (CKD) >90 (>60 ml/min/1.73 sqM); Anion Gap 3 mmol/L; Blood Urea Nitrogen 10 mg/dL (7-17); Calcium 7.9 mg/dL (8.4-10.2); Carbon Dioxide 26 mmol/L (22-30); Chloride 108 mmol/L (98-107); Glucose 161 mg/dL (74-99); Magnesium 1.8 mg/dL (1.6-2.3); Phosphorus 3.5 mg/dL (2.5-4.5); Potassium 3.8 mmol/L (3.5-5.1); Sodium 137 mmol/L (137-145)
[2018-11-26] MEDS: LACTATED RINGERS 1,000 ML IV SCH (09:35)
--- NOTE | 2018-11-26 10:11 | P.PN ---
Subjective Progress Note Date: 11/26/18 Principal diagnosis: C. diff colitis, leukopenia Patient was seen and examined. No acute events overnight. One formed bowel movement today. Patient reports some nausea but no vomiting. Patient denies any fever or chills. She has been placed nothing by mouth for possible bone marrow biopsy today. Objective - Vital Signs Vital signs: Vital Signs Temp 98.1 F 11/26/18 05:00 Pulse 81 11/26/18 05:00 Resp 18 11/26/18 05:00 BP 140/78 11/26/18 05:00 Pulse Ox 98 11/26/18 05:00 Intake & Output 11/25/18 11/26/18 11/26/18 18:59 06:59 18:59 Intake Total 2621 1258.5 Balance 2621 1258.5 Weight 122.5 kg Intake: IV 560 245 Amino Acid 5%-D15w+Lytes* 560 245 E* 1,000 ml @ 70 mls/hr IV .BY DURATION BETTE Rx#: [id number] Intake, IV Titration 2061 423.5 Amount Acyclovir Sodium 1,000 mg 250 In Sodium Chloride 0.9% 250 ml @ 270 mls/hr IVPB Q8HR BETTE Rx#:[id number] Dextrose 5%-0.9% NaCl 1, 400 350 000 ml @ 100 mls/hr IV . Q10H BETTE Rx#:[id number] Fat Emulsion 20% 250 ml 73.5 In Empty Bag 1 bag @ 21 mls/hr IV DAILY@1800 BETTE Rx#:[id number] Magnesium Sulfate-D5w Pmx 200 1 gm In Dextrose/Water 1 100ml.bag @ 100 mls/hr IVPB Q1H BETTE Rx#: [id number] Mvi, Adult No.4 with Vit 1011 K 10 ml Trace (Conc-1Ml/ Dose) 1 ml In Amino Acid 5%-D15w+Lytes*E* 1,000 ml @ 70 mls/hr IV .BY DURATION BETTE Rx#: [id number] Potassium Chloride 20 meq 200 In Water For Injection 1 100ml.bag @ 50 mls/hr IVPB Q2H BETTE Rx#: [id number] Oral 590 Other: Voiding Method Toilet Toilet Toilet # Voids 2 # Bowel Movements 1 - Exam General: [non toxic], [moderate distress], [appears at stated age] Derm: [warm], [dry] Head: [atraumatic], [normocephalic], [symmetric] Eyes: [EOMI], [no lid lag], [anicteric sclera] Mouth: [no lip lesion], [mucus membranes moist] Cardiovascular: [S1S2 reg], [no murmur], [positive DP pulse bilateral] Lungs: [CTA bilateral], [no rhonchi, no rales] , [no accessory muscle use] Abdominal: [soft], [nontender to palpation with positive bowel sounds], [no guarding], [no appreciable organomegaly] Ext: [no gross muscle atrophy], [no edema], [no contractures], [vesicular rash over the right upper back] Neuro: [no focal neuro deficits] Psych: [Alert], [oriented], [appropriate affect] - Labs CBC & Chem 7: 11/25/18 08:15 11/26/18 07:58 Labs: Abnormal Lab Results - Last 24 Hours (Table) 11/25/18 11/25/18 11/25/18 Range/Units 08:15 12:28 19:00 Plt Count 45 L (150-450) k/uL Chloride (98-107) mmol/L Glucose (74-99) mg/dL POC Glucose (mg/dL) 174 H 154 H (75-99) mg/dL Calcium (8.4-10.2) mg/dL 11/25/18 11/26/18 11/26/18 Range/Units 23:52 05:38 07:23 Plt Count (150-450) k/uL Chloride (98-107) mmol/L Glucose (74-99) mg/dL POC Glucose (mg/dL) 138 H 155 H 171 H (75-99) mg/dL Calcium (8.4-10.2) mg/dL 11/26/18 Range/Units 07:58 Plt Count (150-450) k/uL Chloride 108 H (98-107) mmol/L Glucose 161 H (74-99) mg/dL POC Glucose (mg/dL) (75-99) mg/dL Calcium 7.9 L (8.4-10.2) mg/dL Assessment and Plan Assessment: Assessment and Plan Sepsis due to C. diff colitis Hypokalemia Bicytopenia Elevated liver enzymes Factor V Leiden Hypothyroidism Hypertension Initially met septic criteria (T-max 101.7F, leukopenia with WBC count of 0.6, positive source of infection). Lactic acid negative. C. diff positive. UA negative. Blood culture negative. Plan: Continue Vancomycin by mouth. Continue D5 at 100 mL/h. Follow ID consultation. Contact precautions. Zofran as needed for nausea and vomiting. Continue Protonix twice a day. [place] or morphine as needed for pain management. Potassium 3.4-3.8. Likely secondary to diarrhea. Plan: Resolved today. Replace via protocol. Daily CMP. Patient leukopenic to 0.7 platelet count 45. No increase despite being given Filgastrim. Concerns for metastatic disease to the bone marrow. Plan: Follow hematology consultation. Daily CBC. Leukopenic precautions. Transfuse platelets if less than 10,000 or acute bleed. Plans for bone marrow biopsy today as per Oncology. Total bilirubin 2.2, AST 62, alkaline phosphatase 216. Hepatitis panel negative. Lipid panel within normal limits August 2018. Plan: Daily CMP. Needs adequate follow-up in the outpatient setting. Continue cholestyramine. Stable. Plans: Continue aspirin and Xarelto. Plan: Continue Synthroid. BP 140/78. Plan: Continue lisinopril. Monitor vitals, adjust medications as necessary. Patient admitted for C. diff colitis. She has considerably improved. Continues to be leukopenic despite Filgastrim. Plans for oncology to do bone marrow biopsy.
[2018-11-26] MEDS: FILGRASTIM-SNDZ 480 MCG/0.8 ML SYRINGE SQ SCH (10:27)
[2018-11-26 11:35] LABS: Glucose,Whole Blood 197 mg/dL (75-99)
[2018-11-26 11:51] VITALS: BMI 46.3
[2018-11-26] MEDS: TRIAMCINOLONE 0.1% CREAM 80 GM TUBE TOPICAL SCH ×2 (12:30→20:46)
[2018-11-26] MEDS: NYSTATIN 100,000UNIT/GM CREAM 30 GM TUBE TOPICAL SCH ×2 (12:30→20:46)
[2018-11-26] MEDS ORDERED: IV FLUID CONTINUATION 1,000 ML IV ONE (12:40)
--- NOTE | 2018-11-26 13:13 | P.PCN ---
Date of Procedure: 11/26/18 Preoperative Diagnosis: History of lymphoma. 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 Prolonged pancytopenia despite several months off treatment Operative Findings: Adequate samples Description of Procedure: The procedure was explained in detail to the patient on the floor. Informed consent was obtained on the floor. She was brought to the outpatient endoscopy suite and placed in left lateral decubitus position and area over both posterior and crest was cleaned and prepped with chlorhexidine and sterile draping. IV sedation was initiated. Local anesthesia was administered with Xylocaine to the right posterior hilar crest. A Jamshidi needle was then inserted and bone marrow aspirate and biopsy obtained. On the first pass a biopsy sample was not obtained due to which his second pass was made. On withdrawal of the needle hemostasis was easily achieved. Blood loss was minimal and recovery alteration of satisfactory. She appeared to have tolerated the procedure well without any obvious immediate complications.
--- NOTE | 2018-11-26 14:09 | PN ---
PROGRESS NOTE DATE OF SERVICE: 11/26/2018 REASON FOR FOLLOWUP: 1. Clostridium difficile colitis. 2. Right chest wall rash. INTERVAL HISTORY: The patient is currently afebrile. The patient has been breathing comfortably. The patient's improved. No blood in the stool. No nausea, vomiting. Patient denies any worsening of the rash on the right side of the trunk. PHYSICAL EXAMINATION: Blood pressure is 134/95 with a pulse of 74, temperature 98.1, he is 94% on room air. General description is middle-aged female, up in the bed in no distress. RESPIRATORY SYSTEM: Unlabored breathing, clear to auscultation anteriorly. HEART: S1, S2. Regular rate and rhythm. ABDOMEN: Right trunk rash, slight improvement, does not look like pattern or herpetic. LABS: BUN of 10, creatinine 0.57. DIAGNOSTIC IMPRESSION AND PLAN: 1. Patient with Clostridium difficile colitis, slowly clinical improving. Patient is to continue oral vancomycin in a tapering course. Currently on oral vancomycin 250 q.6 hours. Continue for another week after which twice a day for a week, then daily for a week, then every other the day one dose for 7 doses. 2. Right chest wall rash. Clinically doubt it is shingles. Will discontinue IV acyclovir. Apply Mycolog cream to the rash. Close clinical followup. MMODL / IJN: [id number] /
[2018-11-26] MEDS: MAGNESIUM SULFATE-D5W PMX 1 GM in DEXTROSE/WATER 1 100ML.BAG IVPB SCH ×2 (14:39→15:45)
[2018-11-26] MEDS: POTASSIUM CHLORIDE 10 MEQ in WATER FOR INJECTION 1 100ML.BAG IVPB SCH ×2 (14:39→15:44)
[2018-11-26 15:15] LABS: HGB 9.5 gm/dL (11.4-16.0); MCH 34.2 pg (25.0-35.0); MCHC 32.8 g/dL (31.0-37.0); MCV 104.1 fL (80.0-100.0); Macrocytosis Slight; Mean Platelet Volume 11.1; RBC 2.78 m/uL (3.80-5.40); RDW 14.6 % (11.5-15.5)
[2018-11-26 15:18] LABS: WBC 0.6 k/uL (3.8-10.6)
[2018-11-26 15:19] LABS: INR 1.2 (<1.2); Partial Thromboplastin Time 27.7 sec (22.0-30.0); Platelet Count 35 k/uL (150-450); Prothrombin Time 12.4 sec (9.0-12.0)
[2018-11-26 15:30] LABS: Reticulocyte % 1.2 % (0.5-2.0)
[2018-11-26 17:38] LABS: Glucose,Whole Blood 149 mg/dL (75-99)
[2018-11-26] MEDS: FAT EMULSION 20% 250 ML in EMPTY BAG 1 BAG IV SCH (17:44)
[2018-11-26] MEDS: ATORVASTATIN 40 MG TAB PO SCH (20:47)
[2018-11-26] MEDS: GABAPENTIN 300 MG CAP PO SCH (20:47)
[2018-11-27 00:10] LABS: Glucose,Whole Blood 183 mg/dL (75-99)
[2018-11-27] MEDS: VANCOMYCIN ORAL SOLUTION 250 MG/5 ML BOTTLE PO SCH ×4 (00:12→18:06)
[2018-11-27] MEDS: ACYCLOVIR SODIUM 1,000 MG in SODIUM CHLORIDE 0.9% 250 ML IVPB SCH ×2 (00:12→08:06)
[2018-11-27] MEDS: INSULIN ASPART (NovoLOG) 100 UNIT/ML VIAL SQ SCH ×3 (00:13→11:37)
[2018-11-27] MEDS: CHERRY FLAVOR 60 ML BOTTLE PO SCH ×4 (00:20→18:06)
[2018-11-27] MEDS: HYDROcodone/APAP 10-325MG 1 EACH TAB PO PRN ×2 (01:35→11:36)
[2018-11-27 05:51] LABS: Glucose,Whole Blood 162 mg/dL (75-99)
[2018-11-27] MEDS: POTASSIUM CHLORIDE ER 20 MEQ TAB.ER PO SCH (08:03)
[2018-11-27] MEDS: 1: MVI, ADULT NO.4 WITH VIT K 10 ML, TRACE (CONC-1ML/DOSE) 1 ML in AMINO ACID 5%-D15W+LY IV SCH ×3 (08:04)
[2018-11-27] MEDS: DEXTROSE 5%-0.9% NACL 1,000 ML IV SCH ×2 (08:04→16:43)
[2018-11-27] MEDS: LACTATED RINGERS 1,000 ML IV SCH (08:05)
[2018-11-27] MEDS: ASPIRIN 81 MG PO SCH (08:05)
[2018-11-27] MEDS: OXYBUTYNIN XL 5 MG TAB.ER.24 PO SCH (08:05)
[2018-11-27] MEDS: RIVAROXABAN 20 MG TAB PO SCH (08:05)
[2018-11-27] MEDS: LISINOPRIL 20 MG TAB PO SCH (08:05)
[2018-11-27] MEDS: PANTOPRAZOLE 40 MG/10 ML VIAL IV SCH (08:06)
[2018-11-27] MEDS: CHOLESTYRAMINE (WITH SUGAR) 4 GM PACKET PO SCH (08:06)
[2018-11-27] MEDS: FILGRASTIM-SNDZ 480 MCG/0.8 ML SYRINGE SQ SCH (08:07)
[2018-11-27] MEDS: SERTRALINE 100 MG TAB PO SCH (08:07)
[2018-11-27] MEDS: NYSTATIN 100,000UNIT/GM CREAM 30 GM TUBE TOPICAL SCH (08:07)
[2018-11-27] MEDS: MAG HYDROX/AL HYDROX/SIMETH 30 ML, LIDOCAINE VISCOUS 30 ML, diphenhydrAMINE ELIXIR 75 M... PO SCH ×4 (08:08)
[2018-11-27] MEDS: TRIAMCINOLONE 0.1% CREAM 80 GM TUBE TOPICAL SCH (08:08)
[2018-11-27] MEDS: LEVOTHYROXINE 137 MCG TAB PO SCH (08:09)
[2018-11-27 08:48] LABS: African American GFR (CKD) >90 (>60 ml/min/1.73 sqM); Albumin 2.1 g/dL (3.5-5.0); Anion Gap 1 mmol/L; Blood Urea Nitrogen 12 mg/dL (7-17); Calcium 7.8 mg/dL (8.4-10.2); Carbon Dioxide 29 mmol/L (22-30); Chloride 108 mmol/L (98-107); Glucose 112 mg/dL (74-99); Phosphorus 3.7 mg/dL (2.5-4.5); Potassium 4.1 mmol/L (3.5-5.1); Sodium 138 mmol/L (137-145)
[2018-11-27 08:49] LABS: Ionized Calcium 5.3 mg/dL (4.5-5.3)
--- NOTE | 2018-11-27 09:28 | P.PN ---
Subjective Progress Note Date: 11/27/18 Principal diagnosis: Persistent Clostridium difficile infection, pancytopenia that is persistent In f/u today pt is doing well, soft, formed stool this AM, no bleeding, her biopsy site is tender but not unrealistically. Ambulating independently, no other c/o. Objective - Vital Signs Vital signs: Vital Signs Temp 97.9 F 11/27/18 05:00 Pulse 70 11/27/18 05:00 Resp 16 11/27/18 05:00 BP 120/64 11/27/18 05:00 Pulse Ox 97 11/27/18 05:00 Intake & Output 11/26/18 11/27/18 11/27/18 18:59 06:59 18:59 Intake Total 1909 1623 Balance 1909 1623 Weight 122.5 kg 121.5 kg Intake: IV 660 280 Amino Acid 5%-D15w+Lytes* 560 280 E* 1,000 ml @ 70 mls/hr IV .BY DURATION BETTE Rx#: [id number] Intake, IV Titration 1250 754 Amount Acyclovir Sodium 1,000 mg 250 250 In Sodium Chloride 0.9% 250 ml @ 270 mls/hr IVPB Q8HR BETTE Rx#:[id number] Amino Acid 5%-D15w+Lytes* 1000 E* 1,000 ml @ 70 mls/hr IV .BY DURATION BETTE Rx#: [id number] Fat Emulsion 20% 250 ml 84 In Empty Bag 1 bag @ 21 mls/hr IV DAILY@1800 BETTE Rx#:[id number] Lactated Ringers 1,000 ml 220 @ 20 mls/hr IV .Q24H BETTE Rx#:[id number] Magnesium Sulfate-D5w Pmx 100 1 gm In Dextrose/Water 1 100ml.bag @ 100 mls/hr IVPB Q1H BETTE Rx#: [id number] Potassium Chloride 10 meq 100 In Water For Injection 1 100ml.bag @ 100 mls/hr IVPB Q1H BETTE Rx#: [id number] Oral 590 Other: Voiding Method Toilet Toilet # Voids 2 - Constitutional General appearance: Present: cooperative, morbidly obese, no acute distress - EENT Eyes: Present: anicteric sclerae, EOMI ENT: Present: normal oropharynx - Respiratory Details: Resp even and unlabored - Cardiovascular Details: Skin warm and dry, radial pulse 2+ - Gastrointestinal General gastrointestinal: Present: soft - Integumentary Integumentary Comment(s): Left iliac crest biopsy incision, small area of bruising, no drainage, tissue surrounding the site is firm - Neurologic Neurologic: Present: CNII-XII intact - Musculoskeletal Musculoskeletal: Present: strength equal bilaterally - Psychiatric Psychiatric: Present: A&O x's 3, appropriate affect, intact judgment & insight - Labs CBC & Chem 7: 11/26/18 14:57 11/27/18 08:01 Labs: Abnormal Lab Results - Last 24 Hours (Table) 11/26/18 11/26/18 11/26/18 Range/Units 11:34 14:57 14:57 WBC 0.6 L* (3.8-10.6) k/uL RBC 2.78 L (3.80-5.40) m/uL Hgb 9.5 L (11.4-16.0) gm/dL Hct 29.0 L (34.0-46.0) % MCV 104.1 H (80.0-100.0) fL Plt Count 35 L (150-450) k/uL PT 12.4 H (9.0-12.0) sec INR 1.2 H (<1.2) Chloride (98-107) mmol/L Glucose (74-99) mg/dL POC Glucose (mg/dL) 197 H (75-99) mg/dL Calcium (8.4-10.2) mg/dL Albumin (3.5-5.0) g/dL 11/26/18 11/27/18 11/27/18 Range/Units 17:36 00:08 05:49 WBC (3.8-10.6) k/uL RBC (3.80-5.40) m/uL Hgb (11.4-16.0) gm/dL Hct (34.0-46.0) % MCV (80.0-100.0) fL Plt Count (150-450) k/uL PT (9.0-12.0) sec INR (<1.2) Chloride (98-107) mmol/L Glucose (74-99) mg/dL POC Glucose (mg/dL) 149 H 183 H 162 H (75-99) mg/dL Calcium (8.4-10.2) mg/dL Albumin (3.5-5.0) g/dL 11/27/18 Range/Units 08:01 WBC (3.8-10.6) k/uL RBC (3.80-5.40) m/uL Hgb (11.4-16.0) gm/dL Hct (34.0-46.0) % MCV (80.0-100.0) fL Plt Count (150-450) k/uL PT (9.0-12.0) sec INR (<1.2) Chloride 108 H (98-107) mmol/L Glucose 112 H (74-99) mg/dL POC Glucose (mg/dL) (75-99) mg/dL Calcium 7.8 L (8.4-10.2) mg/dL Albumin 2.1 L (3.5-5.0) g/dL Assessment and Plan (1) Febrile neutropenia Narrative/Plan: No fevers>48 hours. ANC remains low even with GCSF support. S/P bone marrow biopsy. Current Visit: Yes Status: Resolved Priority: High Code(s): D70.9 - NEUTROPENIA, UNSPECIFIED; R50.81 - FEVER PRESENTING WITH CONDITIONS CLASSIFIED ELSEWHERE SNOMED Code(s): 317219078 (2) C. difficile colitis Narrative/Plan: Stool formed today. ID recommendations for abx on DC. Diet advanced to soft to eval tolerance. Current Visit: Yes Status: Chronic Priority: High Code(s): A04.72 - ENTEROCOLITIS D/T CLOSTRIDIUM DIFFICILE, NOT SPCF RECUR SNOMED Code(s): 040462798 (3) Pancytopenia Narrative/Plan: Persistent since treatment for NHL. She has not had chemo or MAb since August. Suspicious for marrow related condition possibly a result of previous treatment. S/P bone marrow biopsy. F/U sched with Dr. Balderrama in 2 weeks for results and plan. Current Visit: Yes Status: Chronic Priority: High Code(s): D61.818 - OTHER PANCYTOPENIA SNOMED Code(s): 192510353 (4) Non-Hodgkin lymphoma of extranodal and solid organ sites Current Visit: No Status: Chronic Priority: High Code(s): C85.99 - NON-HOD GKIN LYMPHOMA, UNSP, EXTRANODAL AND SOLID ORGAN SITES SNOMED Code(s): 118 830329 (5) Shingles Narrative/Plan: Anticipate ongoing outpt treatment of the same, defer to ID. Current Visit: Yes Status: Acute Priority: Medium Code(s): B02.9 - ZOSTER WITHOUT COMPLICATIONS SNOMED Code(s): 9117351
[2018-11-27 11:29] LABS: Glucose,Whole Blood 178 mg/dL (75-99)
[2018-11-27 12:30] VITALS: BP 124/64; PULSE 69; RESP 17; TEMP 98.1
--- NOTE | 2018-11-27 13:07 | PN ---
PROGRESS NOTE DATE OF SERVICE: 11/27/2018 REASON FOR FOLLOWUP: 1. Clostridium difficile colitis. 2. Rash on the right side of the trunk. INTERVAL HISTORY: The patient is currently afebrile. Patient has been breathing comfortably. The patient denies having any chest pain or cough. No abdominal pain. Her diarrhea has improved. Did have only one episode, which is mostly soft stool not runny. PHYSICAL EXAMINATION: On examination, blood pressure is 120/64 with a pulse of 70, temperature 97.9. She is 97% on room air. General description is a middle-aged female lying in bed in no distress. RESPIRATORY SYSTEM: Unlabored breathing, clear to auscultation anteriorly. HEART: S1, S2. Regular rate and rhythm. ABDOMEN: Soft, no tenderness. LABS: BUN of 12, creatinine 0.58. DIAGNOSTIC IMPRESSION AND PLAN: 1. Patient admitted to the hospital with sepsis, source is Clostridium difficile colitis currently, currently responding to oral vancomycin will be continued and finish in a tapering course. 2. The patient with a rash on the right side of the trunk, possible fungal dermatitis. Clinically doubt shingles. Will discontinue the acyclovir. Continue with Mycolog cream. Plan was discussed with the nurse practitioner for the oncology team. MMODL / IJN: [id number] /
--- NOTE | 2018-11-27 14:49 | P.DS ---
Providers Date of admission: 11/17/18 15:19 Expected date of discharge: 11/27/18 Attending physician: Darby Ferro DO Consults: 11/17/18 15:19 Consult Physician Urgent Consulting Provider: Forrest Balderrama Consult Reason/Comments: Non-Hodgkin lymphoma Do you want consulting provider notified?: Yes 11/17/18 17:24 Consult Physician Urgent Consulting Provider: Mariann Edmonds Consult Reason/Comments: colitis, shingles, increase temps Do you want consulting provider notified?: Yes Primary care physician: [facility] Course: 58-year-old female with PMH of mesenteric cancer, factor V [place], hypertension, hyperlipidemia, sleep apnea presents to the ED for abdominal pain. Patient reports that the abdominal pain started on Sunday, located in her bilateral lower abdomen. Patient reports that the pain was initially intermittent and came in waves. Patient describes the pain as twisting in nature, 10 out of 10 in severity. Patient states that the pain occasionally goes around to her right back. Patient reports intense nausea but no vomiting over this time. Patient also reports liquid diarrhea, black, very foul smelling since Sunday. She also reports some fever and chills during this time. Patient also complains of a frontal headache, described as a tight band. She denies any cough, chest pain, shortness of breath or any changes with urination. She does report a low appetite. She denies any dizziness, numbness/weakness/tingling of the extremities. In the ED, patient was found to have a T-max of 101.7. Vital signs were otherwise stable. CBC showed the patient was leukopenic with a WBC count of 0.6. She had a hemoglobin of 11.1 and platelet count of 54. CMP showed potassium of 3.2, glucose of 135, calcium of 8.2, total bilirubin of 2.2, AST of 62 and alkaline phosphatase of 216. Lactic acid was negative. Amylase and lipase was negative. Urinalysis was negative. T of the abdomen and pelvis showed inflammatory changes around the sigmoid colon with wall thickening, consistent with colitis. patient initially met sepsis criteria. Her T-max was 101.7, leukopenia with WBC count of 0.6 and a positive source of infection. Lactic acid was negative. C. difficile was positive. Urinalysis was negative. Blood culture was negative. infectious disease was consulted and recommended patient be continued on vancomycin by mouth with a slow taper in the outpatient setting. Patient was noted to be hypokalemic during her admission. This was likely secondary to diarrhea. It was removed placed via the protocol. Patient was noted to be leukopenic with a WBC count of 0.7 and platelet count of 45. She was given Filgastrim with no improvement. Patient underwent bone marrow biopsy under hematology and oncology on 11/26/2018. Patient was seen and examined prior to discharge. No acute events overnight. She has been cleared by oncology per RN. Patient reports worsening of her diarrhea this morning, unable to make an to the bathroom in time. States that her stool was liquid water, brown in color without blood. Diet has been advanced. She denies any chest pain, shortness of breath or palpitations. General: [non toxic], [moderate distress], [appears at stated age] Derm: [warm], [dry] Head: [atraumatic], [normocephalic], [symmetric] Eyes: [EOMI], [no lid lag], [anicteric sclera] Mouth: [no lip lesion], [mucus membranes moist] Cardiovascular: [S1S2 reg], [no murmur], [positive DP pulse bilateral] Lungs: [CTA bilateral], [no rhonchi, no rales] , [no accessory muscle use] Abdominal: [soft], [nontender to palpation with positive bowel sounds], [no guarding], [no appreciable organomegaly] Ext: [no gross muscle atrophy], [no edema], [no contractures], [vesicular rash over the right upper back] Neuro: [no focal neuro deficits] Psych: [Alert], [oriented], [appropriate affect] Assessment and Plan Sepsis due to C. diff colitis Hypokalemia Bicytopenia Elevated liver enzymes Factor V Leiden Hypothyroidism Hypertension Initially met septic criteria (T-max 101.7F, leukopenia with WBC count of 0.6, positive source of infection). Lactic acid negative. C. diff positive. UA negative. Blood culture negative. Plan: Continue Vancomycin by mouth. Continue D5 at 100 mL/h. Follow ID consultation. Contact precautions. Zofran as needed for nausea and vomiting. Continue Protonix twice a day. [place] or morphine as needed for pain management. Potassium 3.4-within normal limits. Likely secondary to diarrhea. Plan: Resolved today. Replace via protocol. Daily CMP. Patient leukopenic to 0.6 platelet count 35. No increase despite being given Filgastrim. Concerns for metastatic disease to the bone marrow. Plan: Follow hematology consultation. Daily CBC. Leukopenic precautions. Transfuse platelets if less than 10,000 or acute bleed. Bone marrow biopsy performed yesterday, will follow outpatient for results. Total bilirubin 2.2, AST 62, alkaline phosphatase 216. Hepatitis panel negative. Lipid panel within normal limits August 2018. Plan: Daily CMP. Needs adequate follow-up in the outpatient setting. Continue cholestyramine. Stable. Plans: Continue aspirin and Xarelto. Plan: Continue Synthroid. BP 120/64. Plan: Continue lisinopril. Monitor vitals, adjust medications as necessary. Patient admitted for C. diff colitis. Continues to be leukopenic despite Filgastrim. POD 1 of bone marrow biopsy. She is being cleared by oncology. Will advance diet, anticipated discharge today or tomorrow if able to tolerate diet and diarrhea better. Pertinent Studies: CT abdomen and pelvis Patient Condition at Discharge: Fair Plan - Discharge Summary New Discharge Prescriptions: New Vancomycin Oral Solution 250 mg PO Q6HR #420 ml Nystatin/Triamcin Cream [Mycolog 100,000-0.1 Unit/gm-% Cream] 1 applic TOPICAL BID #60 gm Continue Atorvastatin [Lipitor] 40 mg PO HS Levothyroxine Sodium [Synthroid] 137 mcg PO DAILY Glimepiride [Amaryl] 2 mg PO BID Tolterodine ER [Detrol LA] 4 mg PO DAILY HYDROcodone/APAP 10-325MG [[place] 10-325] 1 tab PO Q6H PRN PRN Reason: Pain Omeprazole [PriLOSEC] 20 mg PO AC-BID Prochlorperazine [Compazine] 10 mg PO Q6H PRN PRN Reason: Nausea Gabapentin [Neurontin] 300 mg PO HS Lisinopril [Zestril] 20 mg PO DAILY Ondansetron [Zofran] 4 mg PO Q6H PRN PRN Reason: Nausea valACYclovir HCL [Valtrex] 1,000 mg PO TID Aspirin 81 mg PO DAILY #30 chewable Sertraline [Zoloft] 200 mg PO DAILY Cholestyramine (with Sugar) [Questran Packet] 4 gm PO BID #60 packet Rivaroxaban [Xarelto] 20 mg PO DAILY Nystatin [Nystop] 1 applic TOPICAL BID Diphenox-Atrop 2.5-0.025 mg [Lomotil] 1 tab PO QID Discharge Medication List Atorvastatin [Lipitor] 40 mg PO HS 02/10/16 [History] Levothyroxine Sodium [Synthroid] 137 mcg PO DAILY 08/17/16 [History] Glimepiride [Amaryl] 2 mg PO BID 12/19/16 [History] Tolterodine ER [Detrol LA] 4 mg PO DAILY 03/30/17 [History] Gabapentin [Neurontin] 300 mg PO HS 06/07/18 [History] HYDROcodone/APAP 10-325MG [[place] 10-325] 1 tab PO Q6H PRN 06/07/18 [History] Lisinopril [Zestril] 20 mg PO DAILY 06/07/18 [History] Omeprazole [PriLOSEC] 20 mg PO AC-BID 06/07/18 [History] Prochlorperazine [Compazine] 10 mg PO Q6H PRN 06/07/18 [History] Ondansetron [Zofran] 4 mg PO Q6H PRN 09/11/18 [History] valACYclovir HCL [Valtrex] 1,000 mg PO TID 09/11/18 [History] Aspirin 81 mg PO DAILY #30 chewable 09/17/18 [Rx] Sertraline [Zoloft] 200 mg PO DAILY 10/10/18 [History] Cholestyramine (with Sugar) [Questran Packet] 4 gm PO BID #60 packet 10/17/18 [Rx] Diphenox-Atrop 2.5-0.025 mg [Lomotil] 1 tab PO QID 11/17/18 [History] Nystatin [Nystop] 1 applic TOPICAL BID 11/17/18 [History] Rivaroxaban [Xarelto] 20 mg PO DAILY 11/17/18 [History] Nystatin/Triamcin Cream [Mycolog 100,000-0.1 Unit/gm-% Cream] 1 applic TOPICAL BID #60 gm 11/26/18 [Rx] Vancomycin Oral Solution 250 mg PO Q6HR #420 ml 11/26/18 [Rx] Follow up Appointment(s)/Referral(s): Obdulia Jasso MD [Primary Care Provider] - 1-2 days Forrest Balderrama MD [STAFF PHYSICIAN] - 12/10/18 10:30 am Mariann Edmonds MD [STAFF PHYSICIAN] - 1 Week Activity/Diet/Wound Care/Special Instructions: Diet: GI soft Follow-up PCP within 1-2 days of discharge. Follow-up oncology within 1 week of discharge. Take all medications as advised. Discharge Disposition: HOME SELF-CARE
[2018-11-27 15:11] LABS: HGB 9.3 gm/dL (11.4-16.0); Hypochromasia Slight; MCH 33.3 pg (25.0-35.0); MCHC 30.9 g/dL (31.0-37.0); MCV 107.7 fL (80.0-100.0); Macrocytosis Moderate; Mean Platelet Volume 11.9; RBC 2.78 m/uL (3.80-5.40); RDW 14.9 % (11.5-15.5)
[2018-11-27 15:15] LABS: WBC 0.6 k/uL (3.8-10.6)
[2018-11-27 15:16] LABS: Platelet Count 36 k/uL (150-450)
[2018-11-27 15:38] LABS: Large Platelets Present; Polychromasia Present
[2018-11-27 15:39] LABS: Tear Drop Cells Present
== END 2018-11-27 18:57 | disposition home or self-care (01) | DRG 871 ==
LOC: EC 12:43 → 3NMEDONC 15:19
PROVIDERS: ADMIT Internal Medicine; ATTEND Internal Medicine
PROC: 07DR3ZX Extraction of Iliac Bone Marrow, Percutaneous Approach, Diagnostic (ICD-10-PCS; principal; 2018-11-26 08:00)
DX: A41.9 Sepsis, unspecified organism (principal); D61.810 Antineoplastic chemotherapy induced pancytopenia; A04.72 Enterocolitis due to Clostridium difficile, not specified as recurrent; C77.9 Secondary and unspecified malignant neoplasm of lymph node, unspecified; A04.71 Enterocolitis due to Clostridium difficile, recurrent; C85.90 Non-Hodgkin lymphoma, unspecified, unspecified site; C78.7 Secondary malignant neoplasm of liver and intrahepatic bile duct; C81.90 Hodgkin lymphoma, unspecified, unspecified site; D68.51 Activated protein C resistance; D70.9 Neutropenia, unspecified; R50.81 Fever presenting with conditions classified elsewhere; K12.30 Oral mucositis (ulcerative), unspecified; B02.9 Zoster without complications; Z66 Do not resuscitate; E11.9 Type 2 diabetes mellitus without complications; E78.5 Hyperlipidemia, unspecified; E87.6 Hypokalemia; E89.0 Postprocedural hypothyroidism; G47.33 Obstructive sleep apnea (adult) (pediatric); I10 Essential (primary) hypertension; T45.1X5A Adverse effect of antineoplastic and immunosuppressive drugs, initial encounter; Z79.01 Long term (current) use of anticoagulants; Z79.82 Long term (current) use of aspirin; Z79.84 Long term (current) use of oral hypoglycemic drugs; Z79.890 Hormone replacement therapy; Z79.899 Other long term (current) drug therapy; Z82.49 Family history of ischemic heart disease and other diseases of the circulatory system; Z90.710 Acquired absence of both cervix and uterus; Z83.3 Family history of diabetes mellitus; Z86.19 Personal history of other infectious and parasitic diseases; Z88.4 Allergy status to anesthetic agent; Z88.5 Allergy status to narcotic agent; Z88.8 Allergy status to other drugs, medicaments and biological substances; Z90.89 Acquired absence of other organs; Z90.49 Acquired absence of other specified parts of digestive tract; Z98.890 Other specified postprocedural states; Z80.9 Family history of malignant neoplasm, unspecified; Z84.1 Family history of disorders of kidney and ureter; Z99.89 Dependence on other enabling machines and devices
CPT/HCPCS: 36415; 38222; 74177; 80048; 80053; 81003; 82040; 82150; 82272; 82330; 82784; 83605; 83615; 83690; 83735; 84100; 84478; 85025; 85027; 85045; 85610; 85730; 87040; 87324; 96361; 96374; 96375; 99285

== ENCOUNTER 2018-12-24 16:12 | Emergency (ER) | payer MEDICARE ==
[2018-12-24 16:19] VITALS: TEMP 98
--- NOTE | 2018-12-24 17:12 | ED ---
Fall HPI - General Chief Complaint: Fall Stated Complaint: Back injury Time Seen by Provider: 12/24/18 16:25 Source: patient Mode of arrival: ambulatory - History of Present Illness Initial Comments: Patient is a 58-year-old female presenting to the emergency Department after sustaining a fall 3 days ago. Patient states she was on the sidewalk and tripped over a higher piece of sidewalk and fell forward. Patient states she sustained an abrasion to her nose and is complaining of low back and right knee pain. Patient denies any prior surgeries to the back or right knee. Patient states she did speak with a [employer] and they recommended her to be evaluated. Patient denies any LOC, RENTERIA, changes in vision, nausea, vomiting, fever, chills, difficulty with urination. No other complaints at this time. - Related Data Home Medications Medication Instructions Recorded Confirmed Atorvastatin [Lipitor] 40 mg PO HS 02/10/16 11/17/18 Levothyroxine Sodium [Synthroid] 137 mcg PO DAILY 08/17/16 11/17/18 Glimepiride [Amaryl] 2 mg PO BID 12/19/16 11/17/18 Tolterodine ER [Detrol LA] 4 mg PO DAILY 03/30/17 11/17/18 Gabapentin [Neurontin] 300 mg PO HS 06/07/18 11/17/18 HYDROcodone/APAP 10-325MG [[place] 1 tab PO Q6H PRN 06/07/18 11/17/18 10-325] Lisinopril [Zestril] 20 mg PO DAILY 06/07/18 11/17/18 Omeprazole [PriLOSEC] 20 mg PO AC-BID 06/07/18 11/17/18 Prochlorperazine [Compazine] 10 mg PO Q6H PRN 06/07/18 11/17/18 Ondansetron [Zofran] 4 mg PO Q6H PRN 09/11/18 11/17/18 Sertraline [Zoloft] 200 mg PO DAILY 10/10/18 11/17/18 Diphenox-Atrop 2.5-0.025 mg 1 tab PO QID 11/17/18 11/17/18 [Lomotil] Nystatin [Nystop] 1 applic TOPICAL BID 11/17/18 11/17/18 Previous Rx's Medication Instructions Recorded Aspirin 81 mg PO DAILY #30 chewable 09/17/18 Cholestyramine (with Sugar) 4 gm PO BID #60 packet 10/17/18 [Questran Packet] Nystatin/Triamcin Cream [Mycolog 1 applic TOPICAL BID #60 gm 11/26/18 100,000-0.1 Unit/gm-% Cream] Vancomycin Oral Solution 250 mg PO Q6HR #420 ml 11/26/18 Cholestyramine (with Sugar) 4 gm PO BID #60 packet 11/27/18 [Questran Packet] valACYclovir HCL [Valtrex] 1,000 mg PO TID #21 tablet 11/27/18 Allergies Allergy/AdvReac Type Severity Reaction Status Date / Time Anesthetics - Amide Type AdvReac Nausea & Verified 12/24/18 16:19 Vomiting & Diarrhea Anesthetics - Jonna Type- AdvReac Nausea & Verified 12/24/18 16:19 Parabens Vomiting & Diarrhea oxycodone [From OxyContin] AdvReac Nausea & Verified 12/24/18 16:19 Vomiting Review of Systems ROS Statement: Those systems with pertinent positive or pertinent negative responses have been documented in the HPI. ROS Other: All systems not noted in ROS Statement are negative. 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 History of Any Multi-Drug Resistant Organisms: C-DIFF Date of last positivie culture/infection: 11/17/18 MDRO Source:: stool Past Surgical History: Adenoidectomy, Appendectomy, Back Surgery, Cholecystectomy, Hysterectomy, Orthopedic Surgery, Tonsillectomy Additional Past Surgical History / Comment(s): Recent abdominal mass biopsy x 2, BMA, EGD/colonoscopy at [facility], bilateral carpal tunnel release, t hyroidectomy (one tiny piece unable to remove), ORIF rt ankle, stents in LLE/vascular stent, cervical surgery C4,C6, thyroidectomy Past Anesthesia/Blood Transfusion Reactions: Postoperative Nausea & Vomiting (PONV) Additional Past Anesthesia/Blood Transfusion Reaction / Comment(s): blood transfusion(December 2015) "pt stated an hour after transfusion became very nauseated and had quit a bit of vomiting" Past Psychological History: No Psychological Hx Reported Smoking Status: Never smoker Past Alcohol Use History: None Reported Past Drug Use History: None Reported - Past Family History Mother Family Medical History: Diabetes Mellitus, Renal Disease Additional Family Medical History / Comment(s): Mother of kidney failure at the age of 69yrs. Father Family Medical History: Diabetes Mellitus Additional Family Medical History / Comment(s): Father of a "sugar coma" when he was 72 yrs old. Brother(s) Family Medical History: Cancer Sister(s) Family Medical History: Myocardial Infarction ([place]) Additional Family Medical History / Comment(s): Patient has 3 sisters and 2 of them are diabetic. Son(s) Family Medical History: No Reported History (Patient has 4 sons no major medical problems) Additional Family Medical History / Comment(s): Patient has 4 sons with no major medical problems. Daughter(s) Family Medical History: Deep Vein Thrombosis (DVT) Additional Family Medical History / Comment(s): Patient has a daughter with DVT. General Exam - General Exam Comments Initial Comments: GENERAL: Well-appearing, well-nourished and in no acute distress. HEAD: Atraumatic, normocephalic. EYES: Pupils equal round and reactive to light, extraocular movements intact, sclera anicteric, conjunctiva are normal. ENT: TMs normal, nares patent, no pain with palpation of the nasal bone,, oropharynx clear without exudates. Moist mucous membranes. NECK: Normal range of motion, supple without lymphadenopathy or JVD. LUNGS: Breath sounds clear to auscultation bilaterally and equal. No wheezes rales or rhonchi. HEART: Regular rate and rhythm without murmurs, rubs or gallops. ABDOMEN: Soft, nontender, normoactive bowel sounds. No guarding, no rebound. No masses appreciated. : Deferred EXTREMITIES: No pitting or edema. No clubbing or cyanosis. There is mild bruising on the medial aspect the right knee. Pain with flexion. NEUROLOGICAL: Cranial nerves II through XII grossly intact. Normal speech, normal gait. PSYCH: Normal mood, normal affect. SKIN: Warm, Dry, normal turgor. Patient has an abrasion on her nasal bone, and bruising to her left knee. Limitations: no limitations Course Vital Signs 12/24/18 12/24/18 16:17 18:05 Temperature 98 F Pulse Rate 78 71 Respiratory 16 18 Rate Blood Pressure 152/66 165/67 O2 Sat by Pulse 97 98 Oximetry Medical Decision Making - Medical Decision Making She is a 58-year-old female with complaints of right knee pain and low back pain after falling 3 days ago on the cement. Patient has an abrasion to her nose but denies LOC, headache, nasal pain. 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 On exam patient has pain in the medial aspect the right knee and left lower lumbar area. X-rays of the lumbar spine and right knee show no acute fractures dislocations. Patient is stable for discharge. Patient will take Motrin and/or Tylenol for pain relief. Patient will follow up with PCP as needed. Return parameters were discussed with patient she verbalized understanding. Case discussed with Dr. Rubio. Disposition Clinical Impression: Fall, Right knee pain, Low back pain Disposition: HOME SELF-CARE Condition: Stable Instructions (If sedation given, give patient instructions): Fall Prevention for Older Adults (ED) Additional Instructions: Please return to the Emergency Department if symptoms worsen or any other concerns. Is patient prescribed a controlled substance at d/c from ED?: No Referrals: Obdulia Jasso MD [Primary Care Provider] - 1-2 days
--- NOTE | 2018-12-24 17:48 | XR ---
PROCEDURE: XR lumbar spine - 3V DATE AND TIME: 12/24/2018 5:06 PM CLINICAL INDICATION: PHH; Pain TECHNIQUE: Department protocol COMPARISON: None FINDINGS: There is no fracture or malalignment. Prominent multilevel lumbar spondylosis changes noted , most advanced at L4-5 and L5-S1. The soft tissues are unremarkable. IMPRESSION: No acute process.
--- NOTE | 2018-12-24 17:49 | XR ---
PROCEDURE: XR knee complete RT - 3V DATE AND TIME: 12/24/2018 5:06 PM CLINICAL INDICATION: PHH; Pain TECHNIQUE: Department protocol COMPARISON: None FINDINGS: There is no fracture or malalignment. The soft tissues are unremarkable. IMPRESSION: NO ACUTE PROCESS.
[2018-12-24 18:06] VITALS: BP 165/67; PULSE 71; RESP 18
== END 2018-12-24 18:05 | disposition home or self-care (01) ==
LOC: EC 16:12
DX: S00.31XA Abrasion of nose, initial encounter (principal); M25.561 Pain in right knee; M54.5 Low back pain; E11.9 Type 2 diabetes mellitus without complications; E78.5 Hyperlipidemia, unspecified; I10 Essential (primary) hypertension; G47.30 Sleep apnea, unspecified; Z79.890 Hormone replacement therapy; Z79.899 Other long term (current) drug therapy; Z88.5 Allergy status to narcotic agent; Z88.4 Allergy status to anesthetic agent; Z86.718 Personal history of other venous thrombosis and embolism; W01.0XXA Fall on same level from slipping, tripping and stumbling without subsequent striking against object, initial encounter; Y92.480 Sidewalk as the place of occurrence of the external cause
CPT/HCPCS: 72100; 99283

== ENCOUNTER 2019-01-08 16:58 | Inpatient (IN) | payer MEDICARE ==
[2019-01-08] MEDS ORDERED: ONDANSETRON 4 MG/2 ML VIAL IVP STA (18:01)
[2019-01-08] MEDS ORDERED: HYDROmorphone 1 MG/ML 1 ML SYRINGE IVP STA (18:01)
[2019-01-08] MEDS ORDERED: SODIUM CHLORIDE 0.9% 1,000 ML IV STA (18:01)
--- NOTE | 2019-01-08 18:10 | ED ---
Abdominal Pain HPI - General Chief Complaint: Abdominal Pain Stated Complaint: back pain Time Seen by Provider: 01/08/19 17:46 Source: patient Mode of arrival: ambulatory - History of Present Illness Initial Comments: 58-year-old female patient with past history significant for recent C. diff infection presents to the emergency department today for evaluation of severe lower abdominal pain and cramping. Patient states she's had the pain for the last couple of days. States she's also been having frequent loose bowel movements. States she is having 5-6 episodes of mucousy stool per day. Denies any hematochezia or melena with this. States she did have a fever of 101.0F yesterday. Denies any nausea or vomiting. Patient states her symptoms are similar to when she had C. diff in the past. Patient denies any recent rash, shortness breath, chest pain, back pain, numbness, tingling, dizziness, weakness, hematuria, dysuria, urinary urgency, urinary frequency, headache, visual changes, or any other complaints. - Related Data Home Medications Medication Instructions Recorded Confirmed Atorvastatin [Lipitor] 40 mg PO HS 02/10/16 11/17/18 Levothyroxine Sodium [Synthroid] 137 mcg PO DAILY 08/17/16 11/17/18 Glimepiride [Amaryl] 2 mg PO BID 12/19/16 11/17/18 Tolterodine ER [Detrol LA] 4 mg PO DAILY 03/30/17 11/17/18 Gabapentin [Neurontin] 300 mg PO HS 06/07/18 11/17/18 HYDROcodone/APAP 10-325MG [[place] 1 tab PO Q6H PRN 06/07/18 11/17/18 10-325] Lisinopril [Zestril] 20 mg PO DAILY 06/07/18 11/17/18 Omeprazole [PriLOSEC] 20 mg PO AC-BID 06/07/18 11/17/18 Prochlorperazine [Compazine] 10 mg PO Q6H PRN 06/07/18 11/17/18 Ondansetron [Zofran] 4 mg PO Q6H PRN 09/11/18 11/17/18 Sertraline [Zoloft] 200 mg PO DAILY 10/10/18 11/17/18 Diphenox-Atrop 2.5-0.025 mg 1 tab PO QID 11/17/18 11/17/18 [Lomotil] Nystatin [Nystop] 1 applic TOPICAL BID 11/17/18 11/17/18 Previous Rx's Medication Instructions Recorded Aspirin 81 mg PO DAILY #30 chewable 09/17/18 Cholestyramine (with Sugar) 4 gm PO BID #60 packet 10/17/18 [Questran Packet] Nystatin/Triamcin Cream [Mycolog 1 applic TOPICAL BID #60 gm 11/26/18 100,000-0.1 Unit/gm-% Cream] Vancomycin Oral Solution 250 mg PO Q6HR #420 ml 11/26/18 Cholestyramine (with Sugar) 4 gm PO BID #60 packet 11/27/18 [Questran Packet] valACYclovir HCL [Valtrex] 1,000 mg PO TID #21 tablet 11/27/18 Allergies Allergy/AdvReac Type Severity Reaction Status Date / Time Anesthetics - Amide Type AdvReac Nausea & Verified 01/08/19 21:57 Vomiting & Diarrhea Anesthetics - Jonna Type- AdvReac Nausea & Verified 01/08/19 21:57 Parabens Vomiting & Diarrhea oxycodone [From OxyContin] AdvReac Nausea & Verified 01/08/19 21:57 Vomiting Review of Systems ROS Statement: Those systems with pertinent positive or pertinent negative responses have been documented in the HPI. ROS Other: All systems not noted in ROS Statement are negative. 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, bilateral carpal tunnel release, thyroidectomy (one tiny piece unable to remove), ORIF rt ankle, stents in LLE/vascular stent, cervical surgery C4,C6, thyroidectomy Past Anesthesia/Blood Transfusion Reactions: Postoperative Nausea & Vomiting (PONV) Additional Past Anesthesia/Blood Transfusion Reaction / Comment(s): blood transfusion(December 2015) "pt stated an hour after transfusion became very nauseated and had quit a bit of vomiting" Past Psychological History: No Psychological Hx Reported Smoking Status: Never smoker Past Alcohol Use History: None Reported Past Drug Use History: None Reported - Past Family History Mother Family Medical History: Diabetes Mellitus, Renal Disease Additional Family Medical History / Comment(s): Mother of kidney failure at the age of 69yrs. Father Family Medical History: Diabetes Mellitus Additional Family Medical History / Comment(s): Father of a "sugar coma" when he was 72 yrs old. Brother(s) Family Medical History: Cancer Sister(s) Family Medical History: Myocardial Infarction ([place]) Additional Family Medical History / Comment(s): Patient has 3 sisters and 2 of them are diabetic. Son(s) Family Medical History: No Reported History (Patient has 4 sons no major medical problems) Additional Family Medical History / Comment(s): Patient has 4 sons with no major medical problems. Daughter(s) Family Medical History: Deep Vein Thrombosis (DVT) Additional Family Medical History / Comment(s): Patient has a daughter with DVT. General Exam General appearance: alert, in no apparent distress, other (This is a well- developed, well-nourished adult female patient in no acute distress. Vital signs upon presentation are temperature 99.5F, pulse 80, respirations 18, blood pressure 128/64, pulse ox 98% on room air.) Eye exam: Present: normal appearance, PERRL, EOMI. Absent: scleral icterus, conjunctival injection, periorbital swelling ENT exam: Present: normal exam, normal oropharynx, mucous membranes moist Respiratory exam: Present: normal lung sounds bilaterally. Absent: respiratory distress, wheezes, rales, rhonchi, stridor Cardiovascular Exam: Present: regular rate, normal rhythm, normal heart sounds. Absent: systolic murmur, diastolic murmur, rubs, gallop, clicks GI/Abdominal exam: Present: soft, tenderness (Right lower and left lower quadrant tenderness), normal bowel sounds. Absent: distended, guarding, rebound, rigid Neurological exam: Present: alert, oriented X3, CN II-XII intact Psychiatric exam: Present: normal affect, normal mood Skin exam: Present: warm, dry, intact, normal color. Absent: rash Course Vital Signs 01/08/19 01/08/19 01/08/19 17:29 21:00 22:18 Temperature 99.5 F Pulse Rate 80 79 82 Respiratory 18 18 16 Rate Blood Pressure 128/64 110/87 131/93 O2 Sat by Pulse 98 98 97 Oximetry Medical Decision Making - Medical Decision Making 58-year-old female patient with past medical history significant for non- Hodgkin's lymphoma and recent C. diff colitis presents to the emergency department today for evaluation of lower abdominal pain and fever. She's also been having several loose mucousy stools daily. Physical examination does reveal lower abdominal tenderness. Labs reviewed and did reveal white blood cell count of 0.9. C. diff was positive. Patient be admitted for treatment of C. diff. - Lab Data Result diagrams: 01/08/19 18:15 01/08/19 18:15 Lab Results 01/08/19 01/08/19 01/08/19 Range/Units 18:15 18:15 18:15 WBC 0.9 L* (3.8-10.6) k/uL RBC 3.15 L (3.80-5.40) m/uL Hgb 10.7 L (11.4-16.0) gm/dL Hct 32.8 L (34.0-46.0) % MCV 104.1 H (80.0-100.0) fL MCH 34.0 (25.0-35.0) pg MCHC 32.6 (31.0-37.0) g/dL RDW 14.9 (11.5-15.5) % Plt Count 68 L D (150-450) k/uL Differential Comment Manual Slide Review Performed Macrocytosis Slight Sodium 138 (137-145) mmol/L Potassium 3.1 L (3.5-5.1) mmol/L Chloride 106 (98-107) mmol/L Carbon Dioxide 27 (22-30) mmol/L Anion Gap 5 mmol/L BUN 16 (7-17) mg/dL Creatinine 0.66 (0.52-1.04) mg/dL Est GFR (CKD-EPI)AfAm >90 (>60 ml/min/1.73 sqM) Est GFR (CKD-EPI)NonAf >90 (>60 ml/min/1.73 sqM) Glucose 39 L* (74-99) mg/dL POC Glucose (mg/dL) (75-99) mg/dL POC Glu [employer] ID Plasma Lactic Acid Shaka (0.7-2.0) mmol/L Calcium 8.0 L (8.4-10.2) mg/dL Total Bilirubin 1.3 (0.2-1.3) mg/dL AST 47 H (14-36) U/L ALT 30 (9-52) U/L Alkaline Phosphatase 192 H (38-126) U/L Total Protein 5.0 L (6.3-8.2) g/dL Albumin 2.8 L (3.5-5.0) g/dL Amylase <30 L (30-110) U/L Lipase 41 (23-300) U/L C. difficile (EIA) Intrp Positive A (Negative) 01/08/19 01/08/19 Range/Units 18:15 19:24 WBC (3.8-10.6) k/uL RBC (3.80-5.40) m/uL Hgb (11.4-16.0) gm/dL Hct (34.0-46.0) % MCV (80.0-100.0) fL MCH (25.0-35.0) pg MCHC (31.0-37.0) g/dL RDW (11.5-15.5) % Plt Count (150-450) k/uL Differential Comment Manual Slide Review Macrocytosis Sodium (137-145) mmol/L Potassium (3.5-5.1) mmol/L Chloride (98-107) mmol/L Carbon Dioxide (22-30) mmol/L Anion Gap mmol/L BUN (7-17) mg/dL Creatinine (0.52-1.04) mg/dL Est GFR (CKD-EPI)AfAm (>60 ml/min/1.73 sqM) Est GFR (CKD-EPI)NonAf (>60 ml/min/1.73 sqM) Glucose (74-99) mg/dL POC Glucose (mg/dL) 57 L (75-99) mg/dL POC Glu [employer] Architect ID Katherine Tee Plasma Lactic Acid Shaka <0.5 L (0.7-2.0) mmol/L Calcium (8.4-10.2) mg/dL Total Bilirubin (0.2-1.3) mg/dL AST (14-36) U/L ALT (9-52) U/L Alkaline Phosphatase (38-126) U/L Total Protein (6.3-8.2) g/dL Albumin (3.5-5.0) g/dL Amylase (30-110) U/L Lipase (23-300) U/L C. difficile (EIA) Intrp (Negative) - Radiology Data Radiology results: report reviewed, image reviewed KUB x-ray was obtained. Report was reviewed in its entirety. Impression by Dr. Olivier shows nonspecific abdomen. Disposition Clinical Impression: C. difficile colitis, Immunosuppression Disposition: ADMITTED IP TO THIS [facility] Condition: Serious Decision to Admit Reason: Admit from EC Decision Date: 01/08/19 Decision Time: 21:53
[2019-01-08 18:36] LABS: HCT 32.8 % (34.0-46.0); HGB 10.7 gm/dL (11.4-16.0); MCHC 32.6 g/dL (31.0-37.0); MCV 104.1 fL (80.0-100.0); Macrocytosis Slight; Mean Platelet Volume 7.8; RBC 3.15 m/uL (3.80-5.40); RDW 14.9 % (11.5-15.5)
[2019-01-08 18:46] LABS: ALT 30 U/L (9-52); AST 47 U/L (14-36); African American GFR (CKD) >90 (>60 ml/min/1.73 sqM); Albumin 2.8 g/dL (3.5-5.0); Alkaline Phosphatase 192 U/L (38-126); Amylase <30 U/L (30-110); Anion Gap 5 mmol/L; Blood Urea Nitrogen 16 mg/dL (7-17); Carbon Dioxide 27 mmol/L (22-30); Chloride 106 mmol/L (98-107); Potassium 3.1 mmol/L (3.5-5.1); Sodium 138 mmol/L (137-145); Total Bilirubin 1.3 mg/dL (0.2-1.3)
[2019-01-08 18:55] LABS: WBC 0.9 k/uL (3.8-10.6)
[2019-01-08 18:56] LABS: Glucose 39 mg/dL (74-99)
[2019-01-08] MEDS ORDERED: POTASSIUM CHLORIDE ER 20 MEQ TAB.ER PO STA (19:06)
[2019-01-08 19:14] LABS: Platelet Count 68 k/uL (150-450)
[2019-01-08 19:27] LABS: Glucose,Whole Blood 57 mg/dL (75-99)
[2019-01-08] MEDS: DEXTROSE 50% SYRINGE 50 ML IVP STA ×2 (19:29→22:19)
--- NOTE | 2019-01-08 20:31 | XR ---
EXAMINATION TYPE: XR KUB DATE OF EXAM: 01/08/2019 COMPARISON: None HISTORY: Pain TECHNIQUE: Abdomen is examined in the upright view. FINDINGS: Nonspecific bowel gas is present. No free air is under the diaphragm. No suspicious air-flu id levels or differential air-fluid levels are present. No mass effect is evident. Psoas margins are not well visualized on this exam. No suspicious calcifications are evident. IMPRESSION: 1. Nonspecific abdomen.
[2019-01-08 21:04] LABS: Appearance,Urine Clear (Clear); Bilirubin,Urine Negative (Negative); Blood,Urine Negative (Negative); Color,Urine Yellow; Glucose,Urine (UA) Trace (Negative); Ketones,Urine Trace (Negative); Leukocyte Esterase,Urine Negative (Negative); Nitrite,Urine Negative (Negative); Protein,Urine Trace (Negative); Specific Gravity,Urine 1.019 (1.001-1.035)
[2019-01-08] MEDS ORDERED: DEXTROSE 5%-0.45% NACL 1,000 ML IV ONE (21:17)
[2019-01-08] MEDS ORDERED: NALOXONE 0.4 MG/ML 1 ML VIAL IV PRN (21:50)
[2019-01-08] MEDS ORDERED: ONDANSETRON 4 MG/2 ML VIAL IVP PRN (21:50)
[2019-01-08 22:13] LABS: Glucose,Whole Blood 67 mg/dL (75-99)
[2019-01-08] MEDS: MORPHINE SULFATE 4 MG/ML SYRINGE IV PRN (22:19)
[2019-01-08 22:39] LABS: Glucose,Whole Blood 144 mg/dL (75-99)
[2019-01-09 00:05] LABS: Glucose,Whole Blood 59 mg/dL (75-99)
[2019-01-09 00:29] LABS: Glucose,Whole Blood 73 mg/dL (75-99)
[2019-01-09] MEDS: VANCOMYCIN ORAL SOLUTION 250 MG/5 ML BOTTLE PO SCH ×5 (00:54→23:00)
[2019-01-09] MEDS: CHERRY FLAVOR 60 ML BOTTLE PO SCH ×5 (00:54→23:00)
[2019-01-09 01:02] LABS: Glucose,Whole Blood 82 mg/dL (75-99)
[2019-01-09] MEDS ORDERED: PROCHLORPERAZINE 10 MG TAB PO PRN (01:05)
--- NOTE | 2019-01-09 01:20 | P.HPIM ---
History of Present Illness H&P Date: 01/08/19 Chief Complaint: Abdominal pain, mucousy bowel movement 58-year-old female with history of non-Hodgkin lymphoma and diabetes Patient presented to the hospital for day history severe lower abdominal pain with frequent small bowel movements associated with mucus discharge nonbloody non-no melena patient reports nausea and vomiting nonbloody nonbilious. Patient had recurrent attacks of C. diff colitis over the past couple months last episode when she was discharged and of November. She reports the symptoms are similar she reports some chills at home but no fever lower abdominal pain and severe 10 out of 10 in severity sharp in nature waxes and wanes nonradiating gets worse when she feels the urge to pass a bowel movement improves a little bit after passing bowel movements. Denies any GI bleeding. Denies any coughing chest pain or trouble breathing. In the ED she tested positive for C. diff was admitted for further care Patient reports history of DVT in her left leg with history of factor V Leiden Patient was has hypoglycemic in the ED she reports decreased by mouth intake while still taking her oral hypoglycemic agents Review of Systems Pertinent positives as noted in HPI. 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 History of Any Multi-Drug Resistant Organisms: C-DIFF Date of last positivie culture/infection: 11/17/18 MDRO Source:: stool Past Surgical History: Adenoidectomy, Appendectomy, Back Surgery, Cholecystectomy, Hysterectomy, Orthopedic Surgery, Tonsillectomy Additional Past Surgical History / Comment(s): Recent abdominal mass biopsy x 2, BMA, EGD/colonoscopy at [facility], bilateral carpal tunnel release, thyroidectomy (one tiny piece unable to remove), ORIF rt ankle, stents in LLE/vascular stent, cervical surgery C4,C6, thyroidectomy Past Anesthesia/Blood Transfusion Reactions: Postoperative Nausea & Vomiting (PONV) Additional Past Anesthesia/Blood Transfusion Reaction / Comment(s): blood transfusion(December 2015) "pt stated an hour after transfusion became very nauseated and had quit a bit of vomiting" Past Psychological History: No Psychological Hx Reported Smoking Status: Never smoker Past Alcohol Use History: None Reported Past Drug Use History: None Reported - Past Family History Mother Family Medical History: Diabetes Mellitus, Renal Disease Additional Family Medical History / Comment(s): Mother of kidney failure at the age of 69yrs. Father Family Medical History: Diabetes Mellitus Additional Family Medical History / Comment(s): Father of a "sugar coma" when he was 72 yrs old. Brother(s) Family Medical History: Cancer Sister(s) Family Medical History: Myocardial Infarction (SD) Additional Family Medical History / Comment(s): Patient has 3 sisters and 2 of them are diabetic. Son(s) Family Medical History: No Reported History (Patient has 4 sons no major medical problems) Additional Family Medical History / Comment(s): Patient has 4 sons with no major medical problems. Daughter(s) Family Medical History: Deep Vein Thrombosis (DVT) Additional Family Medical History / Comment(s): Patient has a daughter with DVT. Medications and Allergies Home Medications Medication Instructions Recorded Confirmed Type Atorvastatin [Lipitor] 40 mg PO HS 02/10/16 11/17/18 History Levothyroxine Sodium [Synthroid] 137 mcg PO DAILY 08/17/16 11/17/18 History Glimepiride [Amaryl] 2 mg PO BID 12/19/16 11/17/18 History Tolterodine ER [Detrol LA] 4 mg PO DAILY 03/30/17 11/17/18 History Gabapentin [Neurontin] 300 mg PO HS 06/07/18 11/17/18 History HYDROcodone/APAP 10-325MG [Loa 1 tab PO Q6H PRN 06/07/18 11/17/18 History 10-325] Lisinopril [Zestril] 20 mg PO DAILY 06/07/18 11/17/18 History Omeprazole [PriLOSEC] 20 mg PO AC-BID 06/07/18 11/17/18 History Prochlorperazine [Compazine] 10 mg PO Q6H PRN 06/07/18 11/17/18 History Ondansetron [Zofran] 4 mg PO Q6H PRN 09/11/18 11/17/18 History Aspirin 81 mg PO DAILY #30 chewable 09/17/18 11/17/18 Rx Sertraline [Zoloft] 200 mg PO DAILY 10/10/18 11/17/18 History Cholestyramine (with Sugar) 4 gm PO BID #60 packet 10/17/18 11/17/18 Rx [Questran Packet] Diphenox-Atrop 2.5-0.025 mg 1 tab PO QID 11/17/18 11/17/18 History [Lomotil] Nystatin [Nystop] 1 applic TOPICAL BID 11/17/18 11/17/18 History Nystatin/Triamcin Cream [Mycolog 1 applic TOPICAL BID #60 gm 11/26/18 Rx 100,000-0.1 Unit/gm-% Cream] Vancomycin Oral Solution 250 mg PO Q6HR #420 ml 11/26/18 Rx Cholestyramine (with Sugar) 4 gm PO BID #60 packet 11/27/18 Rx [Questran Packet] valACYclovir HCL [Valtrex] 1,000 mg PO TID #21 tablet 11/27/18 Rx Allergies Allergy/AdvReac Type Severity Reaction Status Date / Time Anesthetics - Amide Type AdvReac Nausea & Verified 01/08/19 21:57 Vomiting & Diarrhea Anesthetics - Jonna Type- AdvReac Nausea & Verified 01/08/19 21:57 Parabens Vomiting & Diarrhea oxycodone [From OxyContin] AdvReac Nausea & Verified 01/08/19 21:57 Vomiting Physical Exam Vitals: Vital Signs Temp Pulse Resp BP Pulse Ox 01/08/19 22:18 82 16 131/93 97 01/08/19 17:29 99.5 F 80 18 128/64 98 Intake and Output 01/08/19 01/08/19 01/08/19 06:59 14:59 22:59 Other: Weight 109.769 kg Constitutional: No acute distress, conversant, pleasant Eyes: Anicteric sclerae, moist conjunctiva, no lid-lag Pupils equal round reactive to light ENMT: NC/AT Oropharynx clear, no erythema, or exudates, no oral thrush Neck: Supple, FROM, no masses, or JVD No carotid bruits No thyromegaly Lungs: Clear to auscultation Clear to percussion Normal respiratory effort, no accessory muscle use Cardiovascular: Heart regular in rate and rhythm, No murmurs, gallops, or rubs No peripheral edema Abdominal: Soft, diffusely tender to palpation with rebound tenderness positive voluntary guarding no rigidity Abdomen moving with respiration Normoactive bowel sounds No hepatomegaly, No splenomegaly No palpable mass No abdominal wall hernia noted Skin: Normal temperature, tone, texture, turgor No induration No subcutaneous nodules No rash, lesions No ulcers Extremities: No digital cyanosis No clubbing Pedal pulses intact and symmetrical Radial pulses intact and symmetrical No calf tenderness Psychiatric: Alert and oriented to person, place and time Appropriate affect fair judgment Neuro Muscles Strength 4/5 in all 4 extremities Sensation to light touch grossly present throughout Cranial nerves II-XII grossly intact No focal sensory deficits Lymphatics: no palpable cervical or supraclavicular , or inguinal lymph nodes Results CBC & Chem 7: 01/08/19 18:15 01/08/19 18:15 Labs: Abnormal Lab Results - Last 24 Hours (Table) 01/08/19 01/08/19 01/08/19 Range/Units 18:15 18:15 18:15 WBC 0.9 L* (3.8-10.6) k/uL RBC 3.15 L (3.80-5.40) m/uL Hgb 10.7 L (11.4-16.0) gm/dL Hct 32.8 L (34.0-46.0) % MCV 104.1 H (80.0-100.0) fL Plt Count 68 L D (150-450) k/uL Potassium 3.1 L (3.5-5.1) mmol/L Glucose 39 L* (74-99) mg/dL POC Glucose (mg/dL) (75-99) mg/dL Plasma Lactic Acid Shaka (0.7-2.0) mmol/L Calcium 8.0 L (8.4-10.2) mg/dL AST 47 H (14-36) U/L Alkaline Phosphatase 192 H (38-126) U/L Total Protein 5.0 L (6.3-8.2) g/dL Albumin 2.8 L (3.5-5.0) g/dL Amylase <30 L (30-110) U/L Urine Protein (Negative) Urine Glucose (UA) (Negative) Urine Ketones (Negative) C. difficile (EIA) Intrp Positive A (Negative) 01/08/19 01/08/19 01/08/19 Range/Units 18:15 19:24 20:55 WBC (3.8-10.6) k/uL RBC (3.80-5.40) m/uL Hgb (11.4-16.0) gm/dL Hct (34.0-46.0) % MCV (80.0-100.0) fL Plt Count (150-450) k/uL Potassium (3.5-5.1) mmol/L Glucose (74-99) mg/dL POC Glucose (mg/dL) 57 L (75-99) mg/dL Plasma Lactic Acid Shaka <0.5 L (0.7-2.0) mmol/L Calcium (8.4-10.2) mg/dL AST (14-36) U/L Alkaline Phosphatase (38-126) U/L Total Protein (6.3-8.2) g/dL Albumin (3.5-5.0) g/dL Amylase (30-110) U/L Urine Protein Trace H (Negative) Urine Glucose (UA) Trace H (Negative) Urine Ketones Trace H (Negative) C. difficile (EIA) Intrp (Negative) 01/08/19 Range/Units 22:10 WBC (3.8-10.6) k/uL RBC (3.80-5.40) m/uL Hgb (11.4-16.0) gm/dL Hct (34.0-46.0) % MCV (80.0-100.0) fL Plt Count (150-450) k/uL Potassium (3.5-5.1) mmol/L Glucose (74-99) mg/dL POC Glucose (mg/dL) 67 L (75-99) mg/dL Plasma Lactic Acid Shaka (0.7-2.0) mmol/L Calcium (8.4-10.2) mg/dL AST (14-36) U/L Alkaline Phosphatase (38-126) U/L Total Protein (6.3-8.2) g/dL Albumin (3.5-5.0) g/dL Amylase (30-110) U/L Urine Protein (Negative) Urine Glucose (UA) (Negative) Urine Ketones (Negative) C. difficile (EIA) Intrp (Negative) Assessment and Plan Assessment: 58-year-old female with history of lymphoma and diabetes admitted as inpatient with anticipated length of stay more than 48 hours due to acute recurrent severe C. diff colitis. Patient also has pancytopenia hypoglycemia and hypokalemia Plan: Severe C. diff colitis recurrent X-ray of the abdomen showed no evidence of megacolon Patient started on vancomycin, suggested prolonged course after discharge to continue vancomycin as now patient for at least a month, with tapering dose after that Pain control Contact precautions Hypoglycemia Hold oral hypoglycemic agents Patient placed on D5 Assessment sliding scale as needed Hypokalemia replace and continue to monitor Chronic conditions Pancytopenia None Hodgkin lymphoma Obstructive sleep apnea noncompliant with CPAP Factor V Leiden with history of DVT DVT prophylaxis mechanical secondary to thrombocytopenia Preformed a thorough record review from recent hospitalization recurrent attacks of C. diff colitis over the past couple months CODE STATUS full code Discussed with: Patient, ER, RN Anticipated discharge: 48-[address]: Home* A total of 70 minutes was spent on the care of this complex patient more than 50% of the time was spent in counseling and care coordination.
[2019-01-09] MEDS: MORPHINE SULFATE 4 MG/ML SYRINGE IV PRN ×4 (02:26→22:58)
[2019-01-09 03:19] LABS: Glucose,Whole Blood 77 mg/dL (75-99)
[2019-01-09] MEDS: LEVOTHYROXINE 137 MCG TAB PO SCH (06:22)
[2019-01-09 07:06] LABS: Glucose,Whole Blood 73 mg/dL (75-99)
[2019-01-09] MEDS: INSULIN ASPART (NovoLOG) 100 UNIT/ML VIAL SQ SCH ×4 (07:15→22:07)
[2019-01-09] MEDS: ASPIRIN 81 MG PO SCH (07:34)
[2019-01-09] MEDS: SERTRALINE 100 MG TAB PO SCH (07:34)
[2019-01-09] MEDS: LISINOPRIL 20 MG TAB PO SCH (07:34)
[2019-01-09] MEDS: OXYBUTYNIN XL 5 MG TAB.ER.24 PO SCH (07:34)
[2019-01-09 08:30] LABS: African American GFR (CKD) >90 (>60 ml/min/1.73 sqM); Anion Gap 5 mmol/L; Blood Urea Nitrogen 12 mg/dL (7-17); Carbon Dioxide 26 mmol/L (22-30); Chloride 107 mmol/L (98-107); Glucose 74 mg/dL (74-99); Potassium 3.4 mmol/L (3.5-5.1); Sodium 138 mmol/L (137-145)
[2019-01-09 09:00] LABS: HCT 32.2 % (34.0-46.0); HGB 10.6 gm/dL (11.4-16.0); MCH 34.4 pg (25.0-35.0); MCV 104.4 fL (80.0-100.0); Macrocytosis Slight; Mean Platelet Volume 8.8; RBC 3.08 m/uL (3.80-5.40); RDW 15.5 % (11.5-15.5)
[2019-01-09 09:06] LABS: WBC 1.4 k/uL (3.8-10.6)
[2019-01-09 09:51] LABS: Glucose,Whole Blood 109 mg/dL (75-99)
[2019-01-09 10:18] VITALS: BMI 42.8
[2019-01-09 11:40] LABS: Neutrophils % (M) 41 %; Nucleated Red Blood Cells 0 /100 WBC (0-0)
[2019-01-09 12:05] LABS: Band Neutrophils % 4 %; Basophils # (M) 0.01 k/uL (0-0.2); Eosinophils # (M) 0.13 k/uL (0-0.7); Lymphocytes # (M) 0.14 k/uL (1.0-4.8); Metamyelocytes # (M) 0.03 k/uL (0); Metamyelocytes % 2 %; Monocytes # (M) 0.48 k/uL (0-1.0); Total Cells Counted 200
[2019-01-09 12:12] LABS: Platelet Count 70 k/uL (150-450)
[2019-01-09 12:36] LABS: Glucose,Whole Blood 90 mg/dL (75-99)
--- NOTE | 2019-01-09 13:40 | P.PN ---
Subjective Progress Note Date: 01/09/19 Patient seen and examined and follow-up reports that her abdominal pain is improved still having diarrhea. Denies any subjective fevers chills. Patient previously hypoglycemic due to taking her diabetic medications with poor appetite. Blood sugars now much improved Objective - Vital Signs Vital signs: Vital Signs Temp 99.0 F 01/09/19 12:23 Pulse 75 01/09/19 12:23 Resp 18 01/09/19 12:23 BP 142/62 01/09/19 12:23 Pulse Ox 97 01/09/19 12:23 Intake & Output 01/08/19 01/09/19 01/09/19 18:59 06:59 18:59 Intake Total 400 Balance 400 Weight 109.769 kg 109.769 kg Intake: Oral 400 Other: Voiding Method Toilet Toilet # Voids 1 4 # Bowel Movements 4 - Exam Constitutional: No acute distress, conversant, pleasant Eyes: Anicteric sclerae, moist conjunctiva, no lid-lag, PERRLA ENMT: NC/AT,Oropharynx clear, no erythema, exudates Neck:Supple, FROM, no masses, or JVD, No carotid bruits; No thyromegaly Lungs: Clear to auscultation, Clear to percussion, Normal respiratory effort, no accessory muscle use Cardiovascular: Heart regular in rate and rhythm, No murmurs, gallops, or rubs no peripheral edema Abdominal: Soft Nontender, nom distended, no guarding, no rebound or rigidity, Normoactive bowel sounds No hepatomegaly, No splenomegaly, No palpable mass No abdominal wall hernia noted Skin: Normal temperature, tone, texture, turgor, No induration No subcutaneous nodules, No rash, lesions, No ulcers Extremities:No digital cyanosis No clubbing, Pedal pulses intact and symmetrical Radial pulses intact and symmetrical Normal gait and station, No calf tenderness Psychiatric: Alert and oriented to person, place and time, Appropriate affect Intact judgement Neuro: Muscles Strength 5/5 in all 4 extremities, Sensation to light touch grossly present throughout, Cranial nerves II-XII grossly intact. No focal se nsory deficits - Labs CBC & Chem 7: 01/09/19 07:51 01/09/19 07:51 Labs: Abnormal Lab Results - Last 24 Hours (Table) 01/08/19 01/08/19 01/08/19 Range/Units 18:15 18:15 18:15 WBC 0.9 L* (3.8-10.6) k/uL RBC 3.15 L (3.80-5.40) m/uL Hgb 10.7 L (11.4-16.0) gm/dL Hct 32.8 L (34.0-46.0) % MCV 104.1 H (80.0-100.0) fL Plt Count 68 L D (150-450) k/uL Neutrophils # (Manual) (1.3-7.7) k/uL Lymphocytes # (Manual) (1.0-4.8) k/uL Metamyelocytes # (Man) (0) k/uL Potassium 3.1 L (3.5-5.1) mmol/L Glucose 39 L* (74-99) mg/dL POC Glucose (mg/dL) (75-99) mg/dL Plasma Lactic Acid Shaka (0.7-2.0) mmol/L Calcium 8.0 L (8.4-10.2) mg/dL AST 47 H (14-36) U/L Alkaline Phosphatase 192 H (38-126) U/L Total Protein 5.0 L (6.3-8.2) g/dL Albumin 2.8 L (3.5-5.0) g/dL Amylase <30 L (30-110) U/L Urine Protein (Negative) Urine Glucose (UA) (Negative) Urine Ketones (Negative) C. difficile (EIA) Intrp Positive A (Negative) 01/08/19 01/08/19 01/08/19 Range/Units 18:15 19:24 20:55 WBC (3.8-10.6) k/uL RBC (3.80-5.40) m/uL Hgb (11.4-16.0) gm/dL Hct (34.0-46.0) % MCV (80.0-100.0) fL Plt Count (150-450) k/uL Neutrophils # (Manual) (1.3-7.7) k/uL Lymphocytes # (Manual) (1.0-4.8) k/uL Metamyelocytes # (Man) (0) k/uL Potassium (3.5-5.1) mmol/L Glucose (74-99) mg/dL POC Glucose (mg/dL) 57 L (75-99) mg/dL Plasma Lactic Acid Shaka <0.5 L (0.7-2.0) mmol/L Calcium (8.4-10.2) mg/dL AST (14-36) U/L Alkaline Phosphatase (38-126) U/L Total Protein (6.3-8.2) g/dL Albumin (3.5-5.0) g/dL Amylase (30-110) U/L Urine Protein Trace H (Negative) Urine Glucose (UA) Trace H (Negative) Urine Ketones Trace H (Negative) C. difficile (EIA) Intrp (Negative) 01/08/19 01/08/19 01/09/19 Range/Units 22:10 22:37 00:02 WBC (3.8-10.6) k/uL RBC (3.80-5.40) m/uL Hgb (11.4-16.0) gm/dL Hct (34.0-46.0) % MCV (80.0-100.0) fL Plt Count (150-450) k/uL Neutrophils # (Manual) (1.3-7.7) k/uL Lymphocytes # (Manual) (1.0-4.8) k/uL Metamyelocytes # (Man) (0) k/uL Potassium (3.5-5.1) mmol/L Glucose (74-99) mg/dL POC Glucose (mg/dL) 67 L 144 H 59 L (75-99) mg/dL Plasma Lactic Acid Shaka (0.7-2.0) mmol/L Calcium (8.4-10.2) mg/dL AST (14-36) U/L Alkaline Phosphatase (38-126) U/L Total Protein (6.3-8.2) g/dL Albumin (3.5-5.0) g/dL Amylase (30-110) U/L Urine Protein (Negative) Urine Glucose (UA) (Negative) Urine Ketones (Negative) C. difficile (EIA) Intrp (Negative) 01/09/19 01/09/19 01/09/19 Range/Units 00:27 07:04 07:51 WBC 1.4 L* (3.8-10.6) k/uL RBC 3.08 L (3.80-5.40) m/uL Hgb 10.6 L (11.4-16.0) gm/dL Hct 32.2 L (34.0-46.0) % MCV 104.4 H (80.0-100.0) fL Plt Count 70 L (150-450) k/uL Neutrophils # (Manual) 0.60 L (1.3-7.7) k/uL Lymphocytes # (Manual) 0.14 L (1.0-4.8) k/uL Metamyelocytes # (Man) 0.03 H (0) k/uL Potassium (3.5-5.1) mmol/L Glucose (74-99) mg/dL POC Glucose (mg/dL) 73 L 73 L (75-99) mg/dL Plasma Lactic Acid Shaka (0.7-2.0) mmol/L Calcium (8.4-10.2) mg/dL AST (14-36) U/L Alkaline Phosphatase (38-126) U/L Total Protein (6.3-8.2) g/dL Albumin (3.5-5.0) g/dL Amylase (30-110) U/L Urine Protein (Negative) Urine Glucose (UA) (Negative) Urine Ketones (Negative) C. difficile (EIA) Intrp (Negative) 01/09/19 01/09/19 Range/Units 07:51 09:49 WBC (3.8-10.6) k/uL RBC (3.80-5.40) m/uL Hgb (11.4-16.0) gm/dL Hct (34.0-46.0) % MCV (80.0-100.0) fL Plt Count (150-450) k/uL Neutrophils # (Manual) (1.3-7.7) k/uL Lymphocytes # (Manual) (1.0-4.8) k/uL Metamyelocytes # (Man) (0) k/uL Potassium 3.4 L (3.5-5.1) mmol/L Glucose (74-99) mg/dL POC Glucose (mg/dL) 109 H (75-99) mg/dL Plasma Lactic Acid Shaka (0.7-2.0) mmol/L Calcium 8.0 L (8.4-10.2) mg/dL AST (14-36) U/L Alkaline Phosphatase (38-126) U/L Total Protein (6.3-8.2) g/dL Albumin (3.5-5.0) g/dL Amylase (30-110) U/L Urine Protein (Negative) Urine Glucose (UA) (Negative) Urine Ketones (Negative) C. difficile (EIA) Intrp (Negative) Microbiology - Last 24 Hours (Table) 01/08/19 18:15 Stool Culture - Preliminary Stool Assessment and Plan (1) C. difficile colitis Narrative/Plan: * Recurrent C. diff previously discharged on oral vancomycin * Continue current regimen with oral vancomycin will add Questran to regimen * Consult ID for further recommendations, x-ray negative for any megacolon Current Visit: Yes Status: Chronic Priority: High Code(s): A04.72 - ENTEROCOLITIS D/T CLOSTRIDIUM DIFFICILE, NOT SPCF RECUR SNOMED Code(s): 382156700 (2) Pancytopenia Narrative/Plan: * Chemotherapy induced pancytopenia previously on Rituxan * Continue to monitor CBC, patient had a recent bone marrow biopsy performed in November * White count up to 1.4, hemoglobin 10.6, platelets 70 * We'll consult hematology oncology for further recommendations * Patient currently afebrile Current Visit: No Status: Chronic Priority: High Code(s): D61.818 - OTHER PANCYTOPENIA SNOMED Code(s): 473148445 (3) Hypokalemia Narrative/Plan: * Likely secondary to diarrhea C. diff colitis * 3.4 this morning will order another 40 mEq of KCl IV today Current Visit: Yes Status: Acute Code(s): E87.6 - HYPOKALEMIA SNOMED Code(s): 61921920 (4) Non Hodgkin's lymphoma Narrative/Plan: * Follow up with previously receiving chemotherapy with Rituxan per oncology * Follow up with any recommendations Current Visit: Yes Status: Acute Code(s): C85.90 - NON-HODGKIN LYMPHOMA, UNSPECIFIED, UNSPECIFIED SITE SNOMED Code(s): 572240180 (5) Type 2 diabetes mellitus Narrative/Plan: * Continue to monitor blood sugars * Hold oral hypoglycemics Current Visit: Yes Status: Acute Code(s): E11.9 - TYPE 2 DIABETES MELLITUS WITHOUT COMPLICATIONS SNOMED Code(s): 50906267
[2019-01-09] MEDS: POTASSIUM CHLORIDE 10 MEQ in WATER FOR INJECTION 1 100ML.BAG IVPB SCH ×4 (14:05→18:02)
[2019-01-09] MEDS: valACYclovir HCL 1,000 MG TABLET PO SCH ×2 (15:10→20:37)
--- NOTE | 2019-01-09 16:56 | P.CONS ---
History of Present Illness - Reason for Consult Consult date: 01/09/19 Pancytopenia Requesting physician: Jayde Mcgraw - Chief Complaint Abdoinal Pain - History of Present Illness bill was initially evaluated at [facility] by us in October 2016, then found to have a large abdominal & Retroperitoneal mass > then transfered to a tertiary care facity. She was admitted to [facility], eventually had core biopsy of mesenteric mass on 12/27/16 revealing Grade II Follicular Lymphoma. Mediport was placed while at [place], had PET Scan as out-patient > has extensive involvement with Lymphoma above & below diaphragm, as well as, a very suspicious lesion in the liver> Stage IV-B. She Underwent treatment with R-CHOP starting in January 2017, followed by maintenance Rituxan. In March 2018 she showed evidence of Progressive disease and was treated with Rituxan and bendeka, again followed by mainentance Rituxan in which her last was in August 2018. Last PET scan showed stable disease near CR. On 10/10/18 she presented to hospital with complaints of abdominal pain and diarrhea. She stated the diarrhea worsened over the past few days and was very odorous and frequent. Denied bloody stool. She was recently treated for c-diff colitis which was earlier this month, she was hospitalized and treated with PO vancomycin. She stated she feels it is similiar that time, she is nauseated and has adversions to eating. Abdominal cramping is intermittent and severe when it comes, although improves as quickly as it starts. She has known history of factor V Leiden with greater 2 known thrombolic events (DVTs), was previously maintained on Xarelto but with her recently persistent thrombocytopenia she was taken off DOAC and started on low dose aspirin. Since admission electrolytes and symptom management has been initiated. 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 History of Any Multi-Drug Resistant Organisms: C-DIFF Year Discovered:: 01/08/19 MDRO Source:: stool Past Surgical History: Adenoidectomy, Appendectomy, Back Surgery, Cholecystectomy, Hysterectomy, Orthopedic Surgery, Tonsillectomy Additional Past Surgical History / Comment(s): Recent abdominal mass biopsy x 2, BMA, EGD/colonoscopy at [facility], bilateral carpal tunnel release, t hyroidectomy (one tiny piece unable to remove), ORIF rt ankle, stents in LLE/vascular stent, cervical surgery C4,C6, thyroidectomy Past Anesthesia/Blood Transfusion Reactions: Postoperative Nausea & Vomiting (PONV) Additional Past Anesthesia/Blood Transfusion Reaction / Comm: blood transfusion(December 2015) "pt stated an hour after transfusion became very nauseated and had quit a bit of vomiting" Past Psychological History: No Psychological Hx Reported Smoking Status: Never smoker Past Alcohol Use History: None Reported Past Drug Use History: None Reported - Past Family History Mother Family Medical History: Diabetes Mellitus, Renal Disease Additional Family Medical History / Comment(s): Mother of kidney failure at the age of 69yrs. Father Family Medical History: Diabetes Mellitus Additional Family Medical History / Comment(s): Father of a "sugar coma" when he was 72 yrs old. Brother(s) Family Medical History: Cancer Sister(s) Family Medical History: Myocardial Infarction ([place]) Additional Family Medical History / Comment(s): Patient has 3 sisters and 2 of them are diabetic. Son(s) Family Medical History: No Reported History (Patient has 4 sons no major medical problems) Additional Family Medical History / Comment(s): Patient has 4 sons with no major medical problems. Daughter(s) Family Medical History: Deep Vein Thrombosis (DVT) Additional Family Medical History / Comment(s): Patient has a daughter with DVT. Medications and Allergies Home Medications Medication Instructions Recorded Confirmed Type Atorvastatin [Lipitor] 40 mg PO HS 02/10/16 01/09/19 History Levothyroxine Sodium [Synthroid] 137 mcg PO DAILY 08/17/16 01/09/19 History Glimepiride [Amaryl] 2 mg PO BID 12/19/16 01/09/19 History Tolterodine ER [Detrol LA] 4 mg PO DAILY 03/30/17 01/09/19 History Gabapentin [Neurontin] 300 mg PO HS 06/07/18 01/09/19 History HYDROcodone/APAP 10-325MG [Eddy 1 tab PO Q6H PRN 06/07/18 01/09/19 History 10-325] Lisinopril [Zestril] 20 mg PO DAILY 06/07/18 01/09/19 History Omeprazole [PriLOSEC] 20 mg PO AC-BID 06/07/18 01/09/19 History Prochlorperazine [Compazine] 10 mg PO Q6H PRN 06/07/18 01/09/19 History Ondansetron [Zofran] 4 mg PO Q6H PRN 09/11/18 01/09/19 History Aspirin 81 mg PO DAILY #30 chewable 09/17/18 01/09/19 Rx Sertraline [Zoloft] 200 mg PO DAILY 10/10/18 01/09/19 History Cholestyramine (with Sugar) 4 gm PO BID #60 packet 10/17/18 01/09/19 Rx [Questran Packet] Diphenox-Atrop 2.5-0.025 mg 2 tab PO QID 11/17/18 01/09/19 History [Lomotil] Nystatin [Nystop] 1 applic TOPICAL BID 11/17/18 01/09/19 History Nystatin/Triamcin Cream [Mycolog 1 applic TOPICAL BID #60 gm 11/26/18 01/09/19 Rx 100,000-0.1 Unit/gm-% Cream] Vancomycin Oral Solution 250 mg PO Q6HR #420 ml 11/26/18 01/09/19 Rx valACYclovir HCL [Valtrex] 1,000 mg PO TID #21 tablet 11/27/18 01/09/19 Rx Acetaminophen Tab [Tylenol Tab] 1,000 mg PO Q6HR PRN 01/09/19 01/09/19 History L.acidoph,Paracasei, B.lactis 1 cap PO DAILY 01/09/19 01/09/19 History [Probiotic] Loratadine 10 mg PO DAILY 01/09/19 01/09/19 History Allergies Allergy/AdvReac Type Severity Reaction Status Date / Time Anesthetics - Amide Type AdvReac Nausea & Verified 01/09/19 11:51 Vomiting & Diarrhea Anesthetics - Jonna Type- AdvReac Nausea & Verified 01/09/19 11:51 Parabens Vomiting & Diarrhea oxycodone [From OxyContin] AdvReac Nausea & Verified 01/09/19 11:51 Vomiting Physical Exam Vitals: Vital Signs Temp Pulse Pulse Resp BP BP Pulse Ox 01/09/19 12:23 99.0 F 75 18 142/62 97 01/09/19 04:15 99.7 F H 84 20 149/70 95 01/09/19 00:05 98.9 F 81 20 153/83 97 01/08/19 22:18 82 16 131/93 97 01/08/19 21:00 79 18 110/87 98 01/08/19 17:29 99.5 F 80 18 128/64 98 Intake and Output 01/09/19 01/09/19 01/09/19 06:59 14:59 22:59 Intake Total 400 Balance 400 Intake: Oral 400 Other: Voiding Method Toilet Toilet # Voids 1 4 # Bowel Movements 4 Weight 109.769 kg General: Alert and Oriented x3, No Acute Distress Head: Normocytic, Atraumatic Neck: Supple Mouth: No Lesions, No Thrush Eyes: Non-sclerotic No Palpable cervical, supraclavicular, axillary adenopathy Heart: Regular Rate, Regular Rhythm Lungs: Clear to Ausculations, No Wheeze, No Rhonchi, Diminishe bilateral lower lobes, No increased respiratory effort noted Abdomen: Soft, Non-Distended, Non-Tended, BSx4 Extremities: No Edema, Equal Strength Neurological: No Focal Defects: No sensory or motor deficits noted Psych: Calm and cooperative Results CBC & Chem 7: 01/09/19 07:51 01/09/19 07:51 Labs: Abnormal Lab Results - Last 24 Hours (Table) 01/08/19 01/08/19 01/08/19 Range/Units 18:15 18:15 18:15 WBC 0.9 L* (3.8-10.6) k/uL RBC 3.15 L (3.80-5.40) m/uL Hgb 10.7 L (11.4-16.0) gm/dL Hct 32.8 L (34.0-46.0) % MCV 104.1 H (80.0-100.0) fL Plt Count 68 L D (150-450) k/uL Neutrophils # (Manual) (1.3-7.7) k/uL Lymphocytes # (Manual) (1.0-4.8) k/uL Metamyelocytes # (Man) (0) k/uL Potassium 3.1 L (3.5-5.1) mmol/L Glucose 39 L* (74-99) mg/dL POC Glucose (mg/dL) (75-99) mg/dL Plasma Lactic Acid Shaka (0.7-2.0) mmol/L Calcium 8.0 L (8.4-10.2) mg/dL AST 47 H (14-36) U/L Alkaline Phosphatase 192 H (38-126) U/L Total Protein 5.0 L (6.3-8.2) g/dL Albumin 2.8 L (3.5-5.0) g/dL Amylase <30 L (30-110) U/L Urine Protein (Negative) Urine Glucose (UA) (Negative) Urine Ketones (Negative) Stool Lactoferrin (NEGATIVE) C. difficile (EIA) Intrp Positive A (Negative) 01/08/19 01/08/19 01/08/19 Range/Units 18:15 18:15 19:24 WBC (3.8-10.6) k/uL RBC (3.80-5.40) m/uL Hgb (11.4-16.0) gm/dL Hct (34.0-46.0) % MCV (80.0-100.0) fL Plt Count (150-450) k/uL Neutrophils # (Manual) (1.3-7.7) k/uL Lymphocytes # (Manual) (1.0-4.8) k/uL Metamyelocytes # (Man) (0) k/uL Potassium (3.5-5.1) mmol/L Glucose (74-99) mg/dL POC Glucose (mg/dL) 57 L (75-99) mg/dL Plasma Lactic Acid Shaka <0.5 L (0.7-2.0) mmol/L Calcium (8.4-10.2) mg/dL AST (14-36) U/L Alkaline Phosphatase (38-126) U/L Total Protein (6.3-8.2) g/dL Albumin (3.5-5.0) g/dL Amylase (30-110) U/L Urine Protein (Negative) Urine Glucose (UA) (Negative) Urine Ketones (Negative) Stool Lactoferrin POSITIVE H (NEGATIVE) C. difficile (EIA) Intrp (Negative) 01/08/19 01/08/19 01/08/19 Range/Units 20:55 22:10 22:37 WBC (3.8-10.6) k/uL RBC (3.80-5.40) m/uL Hgb (11.4-16.0) gm/dL Hct (34.0-46.0) % MCV (80.0-100.0) fL Plt Count (150-450) k/uL Neutrophils # (Manual) (1.3-7.7) k/uL Lymphocytes # (Manual) (1.0-4.8) k/uL Metamyelocytes # (Man) (0) k/uL Potassium (3.5-5.1) mmol/L Glucose (74-99) mg/dL POC Glucose (mg/dL) 67 L 144 H (75-99) mg/dL Plasma Lactic Acid Shaka (0.7-2.0) mmol/L Calcium (8.4-10.2) mg/dL AST (14-36) U/L Alkaline Phosphatase (38-126) U/L Total Protein (6.3-8.2) g/dL Albumin (3.5-5.0) g/dL Amylase (30-110) U/L Urine Protein Trace H (Negative) Urine Glucose (UA) Trace H (Negative) Urine Ketones Trace H (Negative) Stool Lactoferrin (NEGATIVE) C. difficile (EIA) Intrp (Negative) 01/09/19 01/09/19 01/09/19 Range/Units 00:02 00:27 07:04 WBC (3.8-10.6) k/uL RBC (3.80-5.40) m/uL Hgb (11.4-16.0) gm/dL Hct (34.0-46.0) % MCV (80.0-100.0) fL Plt Count (150-450) k/uL Neutrophils # (Manual) (1.3-7.7) k/uL Lymphocytes # (Manual) (1.0-4.8) k/uL Metamyelocytes # (Man) (0) k/uL Potassium (3.5-5.1) mmol/L Glucose (74-99) mg/dL POC Glucose (mg/dL) 59 L 73 L 73 L (75-99) mg/dL Plasma Lactic Acid Shaka (0.7-2.0) mmol/L Calcium (8.4-10.2) mg/dL AST (14-36) U/L Alkaline Phosphatase (38-126) U/L Total Protein (6.3-8.2) g/dL Albumin (3.5-5.0) g/dL Amylase (30-110) U/L Urine Protein (Negative) Urine Glucose (UA) (Negative) Urine Ketones (Negative) Stool Lactoferrin (NEGATIVE) C. difficile (EIA) Intrp (Negative) 01/09/19 01/09/19 01/09/19 Range/Units 07:51 07:51 09:49 WBC 1.4 L* (3.8-10.6) k/uL RBC 3.08 L (3.80-5.40) m/uL Hgb 10.6 L (11.4-16.0) gm/dL Hct 32.2 L (34.0-46.0) % MCV 104.4 H (80.0-100.0) fL Plt Count 70 L (150-450) k/uL Neutrophils # (Manual) 0.60 L (1.3-7.7) k/uL Lymphocytes # (Manual) 0.14 L (1.0-4.8) k/uL Metamyelocytes # (Man) 0.03 H (0) k/uL Potassium 3.4 L (3.5-5.1) mmol/L Glucose (74-99) mg/dL POC Glucose (mg/dL) 109 H (75-99) mg/dL Plasma Lactic Acid Shaka (0.7-2.0) mmol/L Calcium 8.0 L (8.4-10.2) mg/dL AST (14-36) U/L Alkaline Phosphatase (38-126) U/L Total Protein (6.3-8.2) g/dL Albumin (3.5-5.0) g/dL Amylase (30-110) U/L Urine Protein (Negative) Urine Glucose (UA) (Negative) Urine Ketones (Negative) Stool Lactoferrin (NEGATIVE) C. difficile (EIA) Intrp (Negative) Microbiology - Last 24 Hours (Table) 01/08/19 18:15 Stool Culture - Preliminary Stool Assessment and Plan Plan: Assessement and Recommendations: Abdominal Pain and Diarrhea: - Recurrent persistent C-Diff - ?Neutropenia Colitis Pancytopenia: - has been presistent since treatment for NHL, status post BM biopsy in November 2018: Showing normal marrow and normal cytogenetics - Etiology is unknown, she has not received chemotherapy recently - Transfuse hemoglobin less than 7 or platlets less than 10 - Restart Granix ANC 0.6 Recent Hospitalization for C-diff Diarrhea: - Treated with abx and questran Mucocytis: - Kools Ordered NHL: - Treatment with maintenance Rituxan - Primary Oncologist Dr. Balderrama Recent Shingles: - Right thigh. HX: DVT: - On xarelto outpatient - Ok to restart as long as platelets greater than 50K Violeta Haider AOCNP
[2019-01-09 17:08] LABS: Glucose,Whole Blood 98 mg/dL (75-99)
[2019-01-09] MEDS: CHOLESTYRAMINE (WITH SUGAR) 4 GM PACKET PO SCH ×2 (18:00→20:37)
[2019-01-09] MEDS: FILGRASTIM-SNDZ 480 MCG/0.8 ML SYRINGE SQ SCH (18:00)
[2019-01-09] MEDS: ATORVASTATIN 40 MG TAB PO SCH (20:37)
[2019-01-09] MEDS: GABAPENTIN 300 MG CAP PO SCH (20:37)
[2019-01-09 21:32] LABS: Glucose,Whole Blood 140 mg/dL (75-99)
--- NOTE | 2019-01-10 00:20 | P.CONS ---
History of Present Illness - Reason for Consult Consult date: 01/09/19 C. diff colitis Requesting physician: Art Mays - Chief Complaint Diarrhea and abdominal pain 2 days - History of Present Illness Patient is 58-year-old female with a past medical history significant for recurrent C. diff colitis last admission to this facility preceded back in middle of November 2018 that was treated with a tapering course of oral vancomycin and the patient did have overall clinical improvement with no diarrhea for more than a month now patient denies any exposure to any other antibiotics since her last treatment for C. diff colitis, patient started having diarrhea about 2 days ago with multiple loose stools in number available no blood or mucus in the stool patient be complaining of cramping pain in the left lower abdominal area intensity is almost 10 out of 10 when severe patient did have some nausea but no vomiting did have some dyspnea no high-grade fever with the symptoms the patient was evaluated by the ER physician. She has to for C. 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 to prol onged hematologic toxicity Thrombocytopenia, Factor V Leiden Homozgous, DVT L lower extremity with stenting, 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 History of Any Multi-Drug Resistant Organisms: C-DIFF Year Discovered:: 01/08/19 MDRO Source:: stool Past Surgical History: Adenoidectomy, Appendectomy, Back Surgery, Cholecystectomy, Hysterectomy, Orthopedic Surgery, Tonsillectomy Additional Past Surgical History / Comment(s): Recent abdominal mass biopsy x 2, BMA, EGD/colonoscopy at [facility], bilateral carpal tunnel release, thyroidectomy (one tiny piece unable to remove), ORIF rt ankle, stents in LLE/vascular stent, cervical surgery C4,C6, thyroidectomy Past Anesthesia/Blood Transfusion Reactions: Postoperative Nausea & Vomiting (PONV) Additional Past Anesthesia/Blood Transfusion Reaction / Comm: blood transfusion( December 2015) "pt stated an hour after transfusion became very nauseated and had quit a bit of vomiting" Past Psychological History: No Psychological Hx Reported Smoking Status: Never smoker Past Alcohol Use History: None Reported Past Drug Use History: None Reported - Past Family History Mother Family Medical History: Diabetes Mellitus, Renal Disease Additional Family Medical History / Comment(s): Mother of kidney failure at the age of 69yrs. Father Family Medical History: Diabetes Mellitus Additional Family Medical History / Comment(s): Father of a "sugar coma" when he was 72 yrs old. Brother(s) Family Medical History: Cancer Sister(s) Family Medical History: Myocardial Infarction ([place]) Additional Family Medical History / Comment(s): Patient has 3 sisters and 2 of them are diabetic. Son(s) Family Medical History: No Reported History (Patient has 4 sons no major medical problems) Additional Family Medical History / Comment(s): Patient has 4 sons with no major medical problems. Daughter(s) Family Medical History: Deep Vein Thrombosis (DVT) Additional Family Medical History / Comment(s): Patient has a daughter with DVT. Medications and Allergies Home Medications Medication Instructions Recorded Confirmed Type Atorvastatin [Lipitor] 40 mg PO HS 02/10/16 01/09/19 History Levothyroxine Sodium [Synthroid] 137 mcg PO DAILY 08/17/16 01/09/19 History Glimepiride [Amaryl] 2 mg PO BID 12/19/16 01/09/19 History Tolterodine ER [Detrol LA] 4 mg PO DAILY 03/30/17 01/09/19 History Gabapentin [Neurontin] 300 mg PO HS 06/07/18 01/09/19 History HYDROcodone/APAP 10-325MG [[place] 1 tab PO Q6H PRN 06/07/18 01/09/19 History 10-325] Lisinopril [Zestril] 20 mg PO DAILY 06/07/18 01/09/19 History Omeprazole [PriLOSEC] 20 mg PO AC-BID 06/07/18 01/09/19 History Prochlorperazine [Compazine] 10 mg PO Q6H PRN 06/07/18 01/09/19 History Ondansetron [Zofran] 4 mg PO Q6H PRN 09/11/18 01/09/19 History Aspirin 81 mg PO DAILY #30 chewable 09/17/18 01/09/19 Rx Sertraline [Zoloft] 200 mg PO DAILY 10/10/18 01/09/19 History Cholestyramine (with Sugar) 4 gm PO BID #60 packet 10/17/18 01/09/19 Rx [Questran Packet] Diphenox-Atrop 2.5-0.025 mg 2 tab PO QID 11/17/18 01/09/19 History [Lomotil] Nystatin [Nystop] 1 applic TOPICAL BID 11/17/18 01/09/19 History Nystatin/Triamcin Cream [Mycolog 1 applic TOPICAL BID #60 gm 11/26/18 01/09/19 Rx 100,000-0.1 Unit/gm-% Cream] Vancomycin Oral Solution 250 mg PO Q6HR #420 ml 11/26/18 01/09/19 Rx valACYclovir HCL [Valtrex] 1,000 mg PO TID #21 tablet 11/27/18 01/09/19 Rx Acetaminophen Tab [Tylenol Tab] 1,000 mg PO Q6HR PRN 01/09/19 01/09/19 History L.acidoph,Paracasei, B.lactis 1 cap PO DAILY 01/09/19 01/09/19 History [Probiotic] Loratadine 10 mg PO DAILY 01/09/19 01/09/19 History Allergies Allergy/AdvReac Type Severity Reaction Status Date / Time Anesthetics - Amide Type AdvReac Nausea & Verified 01/09/19 11:51 Vomiting & Diarrhea Anesthetics - Jonna Type- AdvReac Nausea & Verified 01/09/19 11:51 Parabens Vomiting & Diarrhea oxycodone [From OxyContin] AdvReac Nausea & Verified 01/09/19 11:51 Vomiting Physical Exam Vitals: Vital Signs Temp Pulse Pulse Resp BP BP Pulse Ox 01/09/19 12:23 99.0 F 75 18 142/62 97 01/09/19 04:15 99.7 F H 84 20 149/70 95 01/09/19 00:05 98.9 F 81 20 153/83 97 01/08/19 22:18 82 16 131/93 97 Intake and Output 01/09/19 01/09/19 01/09/19 06:59 14:59 22:59 Intake Total 400 870 Balance 400 870 Intake: Oral 400 870 Other: Voiding Method Toilet Toilet # Voids 1 4 2 # Bowel Movements 4 2 Weight 109.769 kg GENERAL DESCRIPTION: Middle-aged female lying in bed, no distress. No tachypnea or accessory muscle of respiration use. HEENT: Shows Pallor , no scleral icterus. Oral mucous membrane is dry. No pharyngeal erythema or thrush NECK: Trachea central, no thyromegaly. LUNGS: Unlabored breathing. Clear to auscultation anteriorly. No wheeze or crackle. HEART: S1, S2, regular rate and rhythm. No loud murmur ABDOMEN: Soft, left lower quadrant tenderness , no guarding or rigidity, no organomegaly EXTREMITIES: No edema of feet. SKIN: No rash, no masses palpable. NEUROLOGICAL: The patient is awake, alert, oriented x3, mood and affect normal. Results CBC & Chem 7: 01/09/19 07:51 01/09/19 07:51 Labs: Abnormal Lab Results - Last 24 Hours (Table) 01/08/19 01/08/19 01/08/19 Range/Units 18:15 22:10 22:37 WBC (3.8-10.6) k/uL RBC (3.80-5.40) m/uL Hgb (11.4-16.0) gm/dL Hct (34.0-46.0) % MCV (80.0-100.0) fL Plt Count (150-450) k/uL Neutrophils # (Manual) (1.3-7.7) k/uL Lymphocytes # (Manual) (1.0-4.8) k/uL Metamyelocytes # (Man) (0) k/uL Potassium (3.5-5.1) mmol/L POC Glucose (mg/dL) 67 L 144 H (75-99) mg/dL Calcium (8.4-10.2) mg/dL Stool Lactoferrin POSITIVE H (NEGATIVE) 01/09/19 01/09/19 01/09/19 Range/Units 00:02 00:27 07:04 WBC (3.8-10.6) k/uL RBC (3.80-5.40) m/uL Hgb (11.4-16.0) gm/dL Hct (34.0-46.0) % MCV (80.0-100.0) fL Plt Count (150-450) k/uL Neutrophils # (Manual) (1.3-7.7) k/uL Lymphocytes # (Manual) (1.0-4.8) k/uL Metamyelocytes # (Man) (0) k/uL Potassium (3.5-5.1) mmol/L POC Glucose (mg/dL) 59 L 73 L 73 L (75-99) mg/dL Calcium (8.4-10.2) mg/dL Stool Lactoferrin (NEGATIVE) 01/09/19 01/09/19 01/09/19 Range/Units 07:51 07:51 09:49 WBC 1.4 L* (3.8-10.6) k/uL RBC 3.08 L (3.80-5.40) m/uL Hgb 10.6 L (11.4-16.0) gm/dL Hct 32.2 L (34.0-46.0) % MCV 104.4 H (80.0-100.0) fL Plt Count 70 L (150-450) k/uL Neutrophils # (Manual) 0.60 L (1.3-7.7) k/uL Lymphocytes # (Manual) 0.14 L (1.0-4.8) k/uL Metamyelocytes # (Man) 0.03 H (0) k/uL Potassium 3.4 L (3.5-5.1) mmol/L POC Glucose (mg/dL) 109 H (75-99) mg/dL Calcium 8.0 L (8.4-10.2) mg/dL Stool Lactoferrin (NEGATIVE) 01/09/19 Range/Units 21:28 WBC (3.8-10.6) k/uL RBC (3.80-5.40) m/uL Hgb (11.4-16.0) gm/dL Hct (34.0-46.0) % MCV (80.0-100.0) fL Plt Count (150-450) k/uL Neutrophils # (Manual) (1.3-7.7) k/uL Lymphocytes # (Manual) (1.0-4.8) k/uL Metamyelocytes # (Man) (0) k/uL Potassium (3.5-5.1) mmol/L POC Glucose (mg/dL) 140 H (75-99) mg/dL Calcium (8.4-10.2) mg/dL Stool Lactoferrin (NEGATIVE) Microbiology - Last 24 Hours (Table) 01/08/19 18:15 Stool Culture - Preliminary Stool Assessment and Plan Assessment: 1-patient presented to hospital with diarrhea abdominal pain 2. If is positive in this patient who do have a history of recurrent C. diff colitis and has been treated with multiple courses of oral vancomycin and last treatment was a tapering course of oral vancomycin over few weeks Plan: 1-discontinue the oral vancomycin 2-start the patient on deficit 200 mg twice a day for 10 days 3-IV fluid and symptomatic treatment of diarrhea. Brodie 4-patient will likely benefit from outpatient evaluated at [facility] clinic for consideration for stool transplant we will follow on clinical condition and culture to further adjust medication if needed Thank you for this consultation will follow this patient along with you
[2019-01-10] MEDS: CHERRY FLAVOR 60 ML BOTTLE PO SCH ×4 (04:42→23:23)
[2019-01-10] MEDS: LEVOTHYROXINE 137 MCG TAB PO SCH (05:12)
[2019-01-10 07:14] LABS: Glucose,Whole Blood 96 mg/dL (75-99)
[2019-01-10] MEDS: INSULIN ASPART (NovoLOG) 100 UNIT/ML VIAL SQ SCH ×4 (07:20→21:14)
[2019-01-10] MEDS: OXYBUTYNIN XL 5 MG TAB.ER.24 PO SCH (07:51)
[2019-01-10] MEDS: SERTRALINE 100 MG TAB PO SCH (07:51)
[2019-01-10] MEDS: LORATADINE 10 MG TAB PO SCH (07:51)
[2019-01-10] MEDS: LACTOBACILLUS ACIDOPH & BULGAR 1 EACH PACKET PO SCH (07:51)
[2019-01-10] MEDS: CHOLESTYRAMINE (WITH SUGAR) 4 GM PACKET PO SCH ×4 (07:52→21:14)
[2019-01-10] MEDS: ASPIRIN 81 MG PO SCH (07:52)
[2019-01-10] MEDS: LISINOPRIL 20 MG TAB PO SCH (07:53)
[2019-01-10] MEDS: FIDAXOMICIN 200 MG TABLET PO SCH ×2 (07:55→21:13)
[2019-01-10] MEDS: FILGRASTIM-SNDZ 480 MCG/0.8 ML SYRINGE SQ SCH (07:55)
[2019-01-10 09:10] LABS: HCT 30.8 % (34.0-46.0); HGB 10.3 gm/dL (11.4-16.0); Hypochromasia Slight; MCH 35.6 pg (25.0-35.0); MCHC 33.6 g/dL (31.0-37.0); Macrocytosis Moderate; RBC 2.91 m/uL (3.80-5.40); RDW 14.9 % (11.5-15.5)
[2019-01-10 09:14] LABS: Platelet Count 66 k/uL (150-450); WBC 0.9 k/uL (3.8-10.6)
[2019-01-10 09:25] LABS: ALT 32 U/L (9-52); AST 36 U/L (14-36); African American GFR (CKD) >90 (>60 ml/min/1.73 sqM); Albumin 2.4 g/dL (3.5-5.0); Alkaline Phosphatase 171 U/L (38-126); Anion Gap 5 mmol/L; Blood Urea Nitrogen 9 mg/dL (7-17); Carbon Dioxide 26 mmol/L (22-30); Chloride 107 mmol/L (98-107); Glucose 117 mg/dL (74-99); Magnesium 1.9 mg/dL (1.6-2.3); Potassium 3.5 mmol/L (3.5-5.1); Sodium 138 mmol/L (137-145); Total Bilirubin 1.6 mg/dL (0.2-1.3); Total Protein 4.4 g/dL (6.3-8.2)
[2019-01-10] MEDS: MORPHINE SULFATE 4 MG/ML SYRINGE IV PRN ×3 (10:52→23:44)
[2019-01-10] MEDS ORDERED: POTASSIUM CHLORIDE ER 20 MEQ TAB.ER PO STA (11:42)
--- NOTE | 2019-01-10 11:45 | P.PN ---
Subjective Progress Note Date: 01/10/19 Patient seen and examined in follow-up complaining of significant diarrhea last night up to 8 loose liquidy stools and 4 since this morning. Reporting her abdominal pain is much improved. Antibiotic changed from oral vancomycin to dificid. The patient afebrile overnight, WBC count 0.9 hemoglobin 10.3 and platelet's 66. No acute events overnight Objective - Vital Signs Vital signs: Vital Signs Temp 98 F 01/10/19 07:00 Pulse 68 01/10/19 07:00 Resp 16 01/10/19 08:00 BP 150/68 01/10/19 07:00 Pulse Ox 97 01/10/19 07:00 Intake & Output 01/09/19 01/10/19 01/10/19 18:59 06:59 18:59 Intake Total 870 760 Balance 870 760 Weight 109.769 kg 109.769 kg Intake: Intake, IV Titration 660 Amount Dextrose 5%-0.45% NaCl 1, 660 000 ml @ 110 mls/hr IV . Q9H6M ONE Rx#:[id number] Oral 870 100 Other: Voiding Method Toilet Toilet # Voids 2 1 # Bowel Movements 2 3 - Exam Constitutional: No acute distress, conversant, pleasant Eyes: Anicteric sclerae, moist conjunctiva, no lid-lag, PERRLA ENMT: NC/AT,Oropharynx clear, no erythema, exudates Neck:Supple, FROM, no masses, or JVD, No carotid bruits; No thyromegaly Lungs: Clear to auscultation, Clear to percussion, Normal respiratory effort, no accessory muscle use Cardiovascular: Heart regular in rate and rhythm, No murmurs, gallops, or rubs no peripheral edema Abdominal: Soft Nontender, nom distended, no guarding, no rebound or rigidity, Normoactive bowel sounds No hepatomegaly, No splenomegaly, No palpable mass No abdominal wall hernia noted Skin: Normal temperature, tone, texture, turgor, No induration No subcutaneous nodules, No rash, lesions, No ulcers Extremities:No digital cyanosis No clubbing, Pedal pulses intact and symmetri gricelda Radial pulses intact and symmetrical Normal gait and station, No calf tenderness Psychiatric: Alert and oriented to person, place and time, Appropriate affect Intact judgement Neuro: Muscles Strength 5/5 in all 4 extremities, Sensation to light touch grossly present throughout, Cranial nerves II-XII grossly intact. No focal sensory deficits - Labs CBC & Chem 7: 01/10/19 08:21 01/10/19 08:21 Labs: Abnormal Lab Results - Last 24 Hours (Table) 01/08/19 01/09/19 01/09/19 Range/Units 18:15 07:51 21:28 WBC 1.4 L* (3.8-10.6) k/uL RBC (3.80-5.40) m/uL Hgb (11.4-16.0) gm/dL Hct (34.0-46.0) % MCV (80.0-100.0) fL MCH (25.0-35.0) pg Plt Count 70 L (150-450) k/uL Neutrophils # (Manual) 0.60 L (1.3-7.7) k/uL Lymphocytes # (Manual) 0.14 L (1.0-4.8) k/uL Metamyelocytes # (Man) 0.03 H (0) k/uL Glucose (74-99) mg/dL POC Glucose (mg/dL) 140 H (75-99) mg/dL Calcium (8.4-10.2) mg/dL Total Bilirubin (0.2-1.3) mg/dL Alkaline Phosphatase (38-126) U/L Total Protein (6.3-8.2) g/dL Albumin (3.5-5.0) g/dL Stool Lactoferrin POSITIVE H (NEGATIVE) 01/10/19 01/10/19 Range/Units 08:21 08:21 WBC 0.9 L* (3.8-10.6) k/uL RBC 2.91 L (3.80-5.40) m/uL Hgb 10.3 L (11.4-16.0) gm/dL Hct 30.8 L (34.0-46.0) % MCV 106.0 H (80.0-100.0) fL MCH 35.6 H (25.0-35.0) pg Plt Count 66 L (150-450) k/uL Neutrophils # (Manual) (1.3-7.7) k/uL Lymphocytes # (Manual) (1.0-4.8) k/uL Metamyelocytes # (Man) (0) k/uL Glucose 117 H (74-99) mg/dL POC Glucose (mg/dL) (75-99) mg/dL Calcium 8.0 L (8.4-10.2) mg/dL Total Bilirubin 1.6 H (0.2-1.3) mg/dL Alkaline Phosphatase 171 H (38-126) U/L Total Protein 4.4 L (6.3-8.2) g/dL Albumin 2.4 L (3.5-5.0) g/dL Stool Lactoferrin (NEGATIVE) Assessment and Plan (1) C. difficile colitis Narrative/Plan: * Recurrent C. diff previously discharged on oral vancomycin * Continue current regimen with dificid 200mg PO BID will add Questran to regimen * Consult ID for further recommendations, x-ray negative for any megacolon Current Visit: Yes Status: Chronic Priority: High Code(s): A04.72 - ENTEROCOLITIS D/T CLOSTRIDIUM DIFFICILE, NOT SPCF RECUR SNOMED Code(s): 974389737 (2) Pancytopenia Narrative/Plan: * Chemotherapy induced pancytopenia previously on Rituxan * Continue to monitor CBC, patient had a recent bone marrow biopsy performed in November * Patient initiated on Zarxio subcu daily * We'll consult hematology oncology for further recommendations * Patient currently afebrile Current Visit: No Status: Chronic Priority: High Code(s): D61.818 - OTHER PANCYTOPENIA SNOMED Code(s): 234964452 (3) Hypokalemia Narrative/Plan: * Likely secondary to diarrhea C. diff colitis * I will start on daily potassium replacement Current Visit: Yes Status: Acute Code(s): E87.6 - HYPOKALEMIA SNOMED Code(s): 01640718 (4) Non Hodgkin's lymphoma Narrative/Plan: * Follow up with previously receiving chemotherapy with Rituxan per oncology * Follow up with any recommendations Current Visit: Yes Status: Acute Code(s): C85.90 - NON-HODGKIN LYMPHOMA, UNSPECIFIED, UNSPECIFIED SITE SNOMED Code(s): 002546664 (5) Type 2 diabetes mellitus Narrative/Plan: * Continue to monitor blood sugars * Hold oral hypoglycemics Current Visit: Yes Status: Acute Code(s): E11.9 - TYPE 2 DIABETES MELLITUS WITHOUT COMPLICATIONS SNOMED Code(s): 25361918 Plan: * Disposition continue current treatment plan * Appreciate recommendations from ID and oncology * Anticipated discharge to be determined by course
[2019-01-10 12:01] LABS: Glucose,Whole Blood 109 mg/dL (75-99)
--- NOTE | 2019-01-10 15:20 | P.PN ---
Subjective Progress Note Date: 01/10/19 Principal diagnosis: neutropenic abdominal pain Still with complaints of significant diarrhea through night and this am Objective - Vital Signs Vital signs: Vital Signs Temp 97.9 F 01/10/19 14:51 Pulse 65 01/10/19 14:51 Resp 15 01/10/19 14:51 BP 132/66 01/10/19 14:51 Pulse Ox 97 01/10/19 14:51 Intake & Output 01/09/19 01/10/19 01/10/19 18:59 06:59 18:59 Intake Total 870 760 Balance 870 760 Weight 109.769 kg 109.769 kg Intake: Intake, IV Titration 660 Amount Dextrose 5%-0.45% NaCl 1, 660 000 ml @ 110 mls/hr IV . Q9H6M ONE Rx#:[id number] Oral 870 100 Other: Voiding Method Toilet Toilet # Voids 2 1 # Bowel Movements 2 3 - Exam General: Alert and Oriented x3, No Acute Distress Head: Normocytic, Atraumatic Neck: Supple Mouth: No Lesions, No Thrush Eyes: Non-sclerotic No Palpable cervical, supraclavicular, axillary adenopathy Heart: Regular Rate, Regular Rhythm Lungs: Clear to Ausculations, No Wheeze, No Rhonchi, Diminishe bilateral lower lobes, No increased respiratory effort noted Abdomen: Soft, Non-Distended, Non-Tended, BSx4 Extremities: No Edema, Equal Strength Neurological: No Focal Defects: No sensory or motor deficits noted Psych: Calm and cooperative - Labs CBC & Chem 7: 01/10/19 08:21 01/10/19 08:21 Labs: Abnormal Lab Results - Last 24 Hours (Table) 01/09/19 01/10/19 01/10/19 Range/Units 21:28 08:21 08:21 WBC 0.9 L* (3.8-10.6) k/uL RBC 2.91 L (3.80-5.40) m/uL Hgb 10.3 L (11.4-16.0) gm/dL Hct 30.8 L (34.0-46.0) % MCV 106.0 H (80.0-100.0) fL MCH 35.6 H (25.0-35.0) pg Plt Count 66 L (150-450) k/uL Glucose 117 H (74-99) mg/dL POC Glucose (mg/dL) 140 H (75-99) mg/dL Calcium 8.0 L (8.4-10.2) mg/dL Total Bilirubin 1.6 H (0.2-1.3) mg/dL Alkaline Phosphatase 171 H (38-126) U/L Total Protein 4.4 L (6.3-8.2) g/dL Albumin 2.4 L (3.5-5.0) g/dL 01/10/19 Range/Units 11:55 WBC (3.8-10.6) k/uL RBC (3.80-5.40) m/uL Hgb (11.4-16.0) gm/dL Hct (34.0-46.0) % MCV (80.0-100.0) fL MCH (25.0-35.0) pg Plt Count (150-450) k/uL Glucose (74-99) mg/dL POC Glucose (mg/dL) 109 H (75-99) mg/dL Calcium (8.4-10.2) mg/dL Total Bilirubin (0.2-1.3) mg/dL Alkaline Phosphatase (38-126) U/L Total Protein (6.3-8.2) g/dL Albumin (3.5-5.0) g/dL Assessment and Plan Plan: Assessement and Recommendations: Abdominal Pain and Diarrhea: - Recurrent persistent C-Diff - ?Neutropenia Colitis Pancytopenia: - has been presistent since treatment for NHL, status post BM biopsy in November 2018: Showing normal marrow and normal cytogenetics - Etiology is unknown, she has not received chemotherapy recently - Transfuse hemoglobin less than 7 or platlets less than 10 - Restart Granix WBC 0.9 Recent Hospitalization for C-diff Diarrhea: - Treated with abx and questran Mucocytis: - Kools Ordered NHL: - Treatment with maintenance Rituxan - Primary Oncologist Dr. Balderrama Recent Shingles: - Right thigh. HX: DVT: - On xarelto outpatient - Ok to restart as long as platelets greater than 50K Plan: - ID Folowing - Await repeat stool studies - Restart Questran - Resonable for further eval with [facility] - [facility]
[2019-01-10 17:19] LABS: Glucose,Whole Blood 100 mg/dL (75-99)
[2019-01-10 20:45] LABS: Glucose,Whole Blood 124 mg/dL (75-99)
[2019-01-10] MEDS: ATORVASTATIN 40 MG TAB PO SCH (21:13)
[2019-01-10] MEDS: GABAPENTIN 300 MG CAP PO SCH (21:14)
[2019-01-11] MEDS: CHERRY FLAVOR 60 ML BOTTLE PO SCH ×3 (04:56→18:03)
[2019-01-11] MEDS: MORPHINE SULFATE 4 MG/ML SYRINGE IV PRN ×2 (06:13→11:46)
[2019-01-11] MEDS: LEVOTHYROXINE 137 MCG TAB PO SCH (06:55)
[2019-01-11 07:51] LABS: Glucose,Whole Blood 99 mg/dL (75-99)
[2019-01-11] MEDS: ASPIRIN 81 MG PO SCH ×2 (07:52→07:56)
[2019-01-11] MEDS: LACTOBACILLUS ACIDOPH & BULGAR 1 EACH PACKET PO SCH (07:52)
[2019-01-11] MEDS: CHOLESTYRAMINE (WITH SUGAR) 4 GM PACKET PO SCH ×3 (07:52→17:55)
[2019-01-11] MEDS: LORATADINE 10 MG TAB PO SCH (07:52)
[2019-01-11] MEDS: OXYBUTYNIN XL 5 MG TAB.ER.24 PO SCH (07:52)
[2019-01-11] MEDS: LISINOPRIL 20 MG TAB PO SCH (07:52)
[2019-01-11] MEDS: INSULIN ASPART (NovoLOG) 100 UNIT/ML VIAL SQ SCH ×3 (07:53→17:54)
[2019-01-11] MEDS: FILGRASTIM-SNDZ 480 MCG/0.8 ML SYRINGE SQ SCH (08:02)
[2019-01-11] MEDS ORDERED: POTASSIUM CHLORIDE ER 20 MEQ TAB.ER PO SCH (09:00)
--- NOTE | 2019-01-11 10:24 | PN ---
PROGRESS NOTE DATE OF SERVICE: 01/10/2019 REASON FOR FOLLOW UP: C diff colitis, recurrent. INTERVAL HISTORY: The patient is currently afebrile. She has been breathing comfortably. The patient did have diarrhea, no significant improvement and also complaining of abdominal pain. Denies having any chest pain or shortness of breath or cough. PHYSICAL EXAMINATION: Blood pressure is 125/67 with a pulse of 66. Temperature 97.1, she is 97% on room air. General description is a middle-aged female, lying in bed in no distress. RESPIRATORY SYSTEM: Unlabored breathing, clear to auscultation anteriorly. HEART: S1, S2. Regular rate and rhythm. ABDOMEN: Soft, no tenderness. EXTREMITIES: No edema of the feet. LABS: Hemoglobin is 10.1, white count of 0.9, BUN of 9, creatinine 0.59. DIAGNOSTIC IMPRESSION AND PLAN: Patient admitted to the hospital with diarrhea, has been diagnosed with recurrent Clostridium difficile colitis. The patient has had previous deep venous thrombosis with multiple course of oral vancomycin as well as tapering course with persistent recurrences. Currently on oral Dificid, next step for her will be to to prevent recurrent Clostridium difficile colitis. Questions were answered. MMODL / IJN: [id number] /
--- NOTE | 2019-01-11 11:34 | P.DS ---
Providers Date of admission: 01/09/19 10:03 Expected date of discharge: 01/11/19 Attending physician: Jayde Mcgraw MD Consults: 01/09/19 08:26 Consult Physician Routine Consulting Provider: Gael Alvarez Consult Reason/Comments: chemo induced pancytopenia Do you want consulting provider notified?: Yes 01/09/19 13:33 Consult Physician Routine Consulting Provider: Mariann Edmonds Consult Reason/Comments: C. diff recurrent Do you want consulting provider notified?: Yes Primary care physician: Obdulia Jasso - Discharge Diagnosis(es) (1) C. difficile colitis Current Visit: Yes Status: Chronic Priority: High (2) Pancytopenia Current Visit: No Status: Chronic Priority: High (3) Hypokalemia Current Visit: Yes Status: Acute (4) Non Hodgkin's lymphoma Current Visit: Yes Status: Acute (5) Type 2 diabetes mellitus Current Visit: Yes Status: Acute (6) Hypoglycemia Current Visit: Yes Status: Acute Hospital Course: The patient is a 58-year-old female with a history of non-Hodgkin's lymphoma previously on chemotherapy with Rituxan followed by primary oncologist Dr. Moulton who was recently treated for C. diff colitis in November that presented with abdominal pain and diarrhea and found to have a recurrence of her C. diff colitis after stool studies were positive for C. diff. The patient was also noted to be pancytopenic including neutropenic but was afebrile. The patient was started on oral vancomycin and Questran, infectious diseases Dr. Laura church was consulted and recommended switching to dificid 200 mg PO BID and continuing Questran. Oncology was consulted and the patient was started on Zarxio, apparently the patient had previously had treatment for her non-Hodgkin's lymphoma and was status post bone marrow biopsy in November 2018 which showed normal marrow and normal cytogenics and had not received any chemotherapy rrecently. The patient was made and supportive treatment with IV fluids antiemetics and pain medication and had her potassium replaced. With treatment the patient's diarrhea gradually resolved and she continues to be afebrile and she was subseq uently discharged home in stable condition and discharged to follow-up with her PCP and oncologist. This discharge process took approximately 35 minutes. Focused exam: Abdomen: Soft nontender nondistended normal bowel sounds all 4 quadrants Patient Condition at Discharge: Good Plan - Discharge Summary Discharge Rx Participant: No New Discharge Prescriptions: No Action Atorvastatin [Lipitor] 40 mg PO HS Levothyroxine Sodium [Synthroid] 137 mcg PO DAILY Glimepiride [Amaryl] 2 mg PO BID Tolterodine ER [Detrol LA] 4 mg PO DAILY HYDROcodone/APAP 10-325MG [Everett 10-325] 1 tab PO Q6H PRN PRN Reason: Pain Omeprazole [PriLOSEC] 20 mg PO AC-BID Prochlorperazine [Compazine] 10 mg PO Q6H PRN PRN Reason: Nausea Gabapentin [Neurontin] 300 mg PO HS Lisinopril [Zestril] 20 mg PO DAILY Ondansetron [Zofran] 4 mg PO Q6H PRN PRN Reason: Nausea Aspirin 81 mg PO DAILY #30 chewable Sertraline [Zoloft] 200 mg PO DAILY Cholestyramine (with Sugar) [Questran Packet] 4 gm PO BID #60 packet Nystatin [Nystop] 1 applic TOPICAL BID Diphenox-Atrop 2.5-0.025 mg [Lomotil] 2 tab PO QID Vancomycin Oral Solution 250 mg PO Q6HR #420 ml Nystatin/Triamcin Cream [Mycolog 100,000-0.1 Unit/gm-% Cream] 1 applic TOPICAL BID #60 gm valACYclovir HCL [Valtrex] 1,000 mg PO TID #21 tablet L.acidoph,Paracasei, B.lactis [Probiotic] 1 cap PO DAILY Acetaminophen Tab [Tylenol Tab] 1,000 mg PO Q6HR PRN PRN Reason: Pain Loratadine 10 mg PO DAILY Discharge Medication List Atorvastatin [Lipitor] 40 mg PO HS 02/10/16 [History] Levothyroxine Sodium [Synthroid] 137 mcg PO DAILY 08/17/16 [History] Glimepiride [Amaryl] 2 mg PO BID 12/19/16 [History] Tolterodine ER [Detrol LA] 4 mg PO DAILY 03/30/17 [History] Gabapentin [Neurontin] 300 mg PO HS 06/07/18 [History] HYDROcodone/APAP 10-325MG [Everett 10-325] 1 tab PO Q6H PRN 06/07/18 [History] Lisinopril [Zestril] 20 mg PO DAILY 06/07/18 [History] Omeprazole [PriLOSEC] 20 mg PO AC-BID 06/07/18 [History] Prochlorperazine [Compazine] 10 mg PO Q6H PRN 06/07/18 [History] Ondansetron [Zofran] 4 mg PO Q6H PRN 09/11/18 [History] Aspirin 81 mg PO DAILY #30 chewable 09/17/18 [Rx] Sertraline [Zoloft] 200 mg PO DAILY 10/10/18 [History] Cholestyramine (with Sugar) [Questran Packet] 4 gm PO BID #60 packet 10/17/18 [Rx] Diphenox-Atrop 2.5-0.025 mg [Lomotil] 2 tab PO QID 11/17/18 [History] Nystatin [Nystop] 1 applic TOPICAL BID 11/17/18 [History] Nystatin/Triamcin Cream [Mycolog 100,000-0.1 Unit/gm-% Cream] 1 applic TOPICAL BID #60 gm 11/26/18 [Rx] Vancomycin Oral Solution 250 mg PO Q6HR #420 ml 11/26/18 [Rx] valACYclovir HCL [Valtrex] 1,000 mg PO TID #21 tablet 11/27/18 [Rx] Acetaminophen Tab [Tylenol Tab] 1,000 mg PO Q6HR PRN 01/09/19 [History] L.acidoph,Paracasei, B.lactis [Probiotic] 1 cap PO DAILY 01/09/19 [History] Loratadine 10 mg PO DAILY 01/09/19 [History] Follow up Appointment(s)/Referral(s): Obdulia Jasso MD [Primary Care Provider] - 1-2 days Activity/Diet/Wound Care/Special Instructions: Dificid prescription ready at [facility] and costs $8.50. Please tack picker prior to discharge.
[2019-01-11 11:48] LABS: Glucose,Whole Blood 102 mg/dL (75-99)
[2019-01-11] MEDS: FIDAXOMICIN 200 MG TABLET PO SCH (11:58)
[2019-01-11 15:32] LABS: HCT 31.6 % (34.0-46.0); HGB 9.5 gm/dL (11.4-16.0); Hypochromasia Slight; MCH 31.2 pg (25.0-35.0); MCHC 30.2 g/dL (31.0-37.0); MCV 103.6 fL (80.0-100.0); Macrocytosis Slight; Mean Platelet Volume 8.4; RBC 3.05 m/uL (3.80-5.40); RDW 14.5 % (11.5-15.5)
[2019-01-11 15:46] LABS: Platelet Count 58 k/uL (150-450); WBC 0.8 k/uL (3.8-10.6)
[2019-01-11] MEDS ORDERED: HYDROcodone/APAP 10-325MG 1 EACH TAB PO PRN (16:08)
[2019-01-11 16:42] LABS: Glucose,Whole Blood 111 mg/dL (75-99)
[2019-01-11 18:21] VITALS: BP 114/74; PULSE 74; RESP 14; TEMP 98.6
[2019-01-11] MEDS ORDERED: SERTRALINE 100 MG TAB PO SCH (21:00)
--- NOTE | 2019-01-11 21:42 | PN ---
PROGRESS NOTE DATE OF SERVICE: 01/11/2019 REASON FOR FOLLOWUP: C difficile colitis. INTERVAL HISTORY: The patient is currently afebrile. Patient is breathing comfortably. Patient denies having any chest pain. No shortness of breath or cough. Still complaining of abdominal pain for which the patient currently is receiving IV medication. No nausea, no vomiting. Diarrhea has slowed down and is slightly forming up. PHYSICAL EXAMINATION: Blood pressure is 135/80 with a pulse of 62, temperature 98.2, she is 97% on room air. General description is a middle-aged female lying in bed in no distress. Respiratory system: Unlabored breathing, clear to auscultation anteriorly. Heart S1, S2. Regular rate. Abdomen soft, mildly distended. No guarding, no rigidity. LABS: Hemoglobin 9.5, white count 0.8. DIAGNOSTIC IMPRESSION AND PLAN: Patient with recurrent Clostridium difficile colitis previously failing therapy course of oral vancomycin with some response to the oral ( ) to continue for 10 days. We will follow up with the patient in outpatient setting and arrange for followup at [facility] for stool transplant consultation. Continue supportive care. MMODL / IJN: [id number] /
== END 2019-01-11 19:48 | disposition home or self-care (01) | DRG 372 ==
LOC: EC 16:58 → 4MS4W 20:55 → OBSVTOIN 01-09 10:03
PROVIDERS: ADMIT Internal Medicine; ATTEND Internal Medicine
DX: A04.71 Enterocolitis due to Clostridium difficile, recurrent (principal); C78.7 Secondary malignant neoplasm of liver and intrahepatic bile duct; D68.51 Activated protein C resistance; D61.818 Other pancytopenia; C85.90 Non-Hodgkin lymphoma, unspecified, unspecified site; Z68.41 Body mass index [BMI] 40.0-44.9, adult; E11.649 Type 2 diabetes mellitus with hypoglycemia without coma; E87.6 Hypokalemia; E78.5 Hyperlipidemia, unspecified; I10 Essential (primary) hypertension; G47.33 Obstructive sleep apnea (adult) (pediatric); E89.0 Postprocedural hypothyroidism; Z91.19 Patient's noncompliance with other medical treatment and regimen; Z90.710 Acquired absence of both cervix and uterus; Z90.49 Acquired absence of other specified parts of digestive tract; Z79.899 Other long term (current) drug therapy; Z79.890 Hormone replacement therapy; Z79.84 Long term (current) use of oral hypoglycemic drugs; Z79.82 Long term (current) use of aspirin; Z86.718 Personal history of other venous thrombosis and embolism; Z92.21 Personal history of antineoplastic chemotherapy; Z83.3 Family history of diabetes mellitus; Z82.49 Family history of ischemic heart disease and other diseases of the circulatory system; Z86.19 Personal history of other infectious and parasitic diseases; Z90.89 Acquired absence of other organs; Z98.890 Other specified postprocedural states; Z88.4 Allergy status to anesthetic agent; Z88.5 Allergy status to narcotic agent
CPT/HCPCS: 36415; 74018; 80048; 80053; 81003; 82150; 83605; 83630; 83690; 83735; 85025; 87045; 87046; 87324; 96361; 96374; 96375; 96376; 99285

== ENCOUNTER 2019-02-06 10:26 | Emergency (ER) | payer MEDICARE ==
[2019-02-06] MEDS ORDERED: SODIUM CHLORIDE 0.9% 500 ML 500 ML IV STA (10:49)
--- NOTE | 2019-02-06 11:22 | ED ---
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 Patient has history of C. difficile and states that her symptoms are identical to when she had about 1 month prior. Patient states she is put on 10 days antibiotic status post discharge from previous infection stating that she felt better and did not have any more diarrhea. Patient states the area became yesterday, patient denies any recent antibiotic use or additional hospitalizations afer most recent previous discharge. Patient states the stools are yellow, liquid like water with foul odor, diffuse abdominal cramping denies any localized pain or radiation. He states the cramping is constant denies any alleviating or aggravating factors. Patient states she had a temperature of 101F last night. Denies sick contacts. Denies URI symptoms, chest pain, SOB or any other complaints upon arrival patient appears uncomfortable. VS stable. - Related Data Home Medications Medication Instructions Recorded Confirmed Atorvastatin [Lipitor] 40 mg PO DAILY 02/10/16 02/06/19 Levothyroxine Sodium [Synthroid] 137 mcg PO DAILY 08/17/16 02/06/19 Glimepiride [Amaryl] 2 mg PO BID 12/19/16 02/06/19 Tolterodine ER [Detrol LA] 4 mg PO DAILY 03/30/17 02/06/19 Gabapentin [Neurontin] 300 mg PO HS 06/07/18 02/06/19 HYDROcodone/APAP 10-325MG [[place] 1 tab PO Q6H PRN 06/07/18 02/06/19 10-325] Lisinopril [Zestril] 20 mg PO DAILY 06/07/18 02/06/19 Omeprazole [PriLOSEC] 20 mg PO AC-BID 06/07/18 02/06/19 Sertraline [Zoloft] 200 mg PO DAILY 10/10/18 02/06/19 Diphenox-Atrop 2.5-0.025 mg 2 tab PO QID 11/17/18 02/06/19 [Lomotil] Cholestyramine (with Sugar) 4 gm PO TID 02/06/19 02/06/19 [Questran Packet] Rivaroxaban [Xarelto] 20 mg PO DAILY 02/06/19 02/06/19 Allergies Allergy/AdvReac Type Severity Reaction Status Date / Time Anesthetics - Amide Type AdvReac Nausea & Verified 02/06/19 10:57 Vomiting & Diarrhea Anesthetics - Jonna Type- AdvReac Nausea & Verified 02/06/19 10:57 Parabens Vomiting & Diarrhea oxycodone [From OxyContin] AdvReac Nausea & Verified 02/06/19 10:57 Vomiting Review of Systems ROS Statement: Those systems with pertinent positive or pertinent negative responses have been documented in the HPI. ROS Other: All systems not noted in ROS Statement are negative. 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 History of Any Multi-Drug Resistant Organisms: C-DIFF Date of last positivie culture/infection: 01/08/19 MDRO Source:: stool Past Surgical History: Adenoidectomy, Appendectomy, Back Surgery, Cholecystectomy, Hysterectomy, Orthopedic Surgery, Tonsillectomy Additional Past Surgical History / Comment(s): Recent abdominal mass biopsy x 2, BMA, EGD/colonoscopy at [facility], bilateral carpal tunnel release, thyr oidectomy (one tiny piece unable to remove), ORIF rt ankle, stents in LLE/vascular stent, cervical surgery C4,C6, thyroidectomy Past Anesthesia/Blood Transfusion Reactions: Postoperative Nausea & Vomiting (PONV) Additional Past Anesthesia/Blood Transfusion Reaction / Comment(s): blood transfusion(December 2015) "pt stated an hour after transfusion became very nauseated and had quit a bit of vomiting" Past Psychological History: No Psychological Hx Reported Smoking Status: Never smoker Past Alcohol Use History: None Reported Past Drug Use History: None Reported - Past Family History Mother Family Medical History: Diabetes Mellitus, Renal Disease Additional Family Medical History / Comment(s): Mother of kidney failure at the age of 69yrs. Father Family Medical History: Diabetes Mellitus Additional Family Medical History / Comment(s): Father of a "sugar coma" when he was 72 yrs old. Brother(s) Family Medical History: Cancer Sister(s) Family Medical History: Myocardial Infarction ([place]) Additional Family Medical History / Comment(s): Patient has 3 sisters and 2 of them are diabetic. Son(s) Family Medical History: No Reported History (Patient has 4 sons no major medical problems) Additional Family Medical History / Comment(s): Patient has 4 sons with no major medical problems. Daughter(s) Family Medical History: Deep Vein Thrombosis (DVT) Additional Family Medical History / Comment(s): Patient has a daughter with DVT. General Exam - General Exam Comments Initial Comments: General: The patient is awake and alert, no distress Eye: +3 mm pupils are equal, round and reactive to light, extra-ocular movements are intact. No nystagmus. There is normal conjunctiva bilaterally. No signs of icterus. Ears, nose, mouth and throat: There are dry mucous membranes and no oral lesions. Neck: The neck is supple, there is no tenderness or JVD. Cardiovascular: There is a regular rate and rhythm. No murmur, rub or gallop is appreciated. Respiratory: Lungs are clear to auscultation, respirations are non-labored, breath sounds are equal. No wheezes, stridor, rales, or rhonchi. Gastrointestinal: Soft, non-distended, diffusely tender abdomen without masses or organomegaly noted. There is no rebound or guarding present. Bowel sounds are active. Musculoskeletal: Normal ROM, no tenderness. Strength 5/5. Sensation intact. Radial pulses equal bilaterally 2+. Neurological: A&O x 3. CN II-XII intact grossly, There are no obvious motor or sensory deficits. Coordination appears grossly intact. Speech is normal. Skin: Skin is warm and dry and no rashes or lesions are noted. Psychiatric: Cooperative, appropriate mood & affect, normal judgment. Limitations: no limitations Course Vital Signs 02/06/19 02/06/19 02/06/19 10:45 12:01 13:34 Temperature 98.1 F 98.2 F 98.0 F Pulse Rate 67 62 66 Respiratory 17 18 18 Rate Blood Pressure 138/63 139/68 130/64 O2 Sat by Pulse 97 98 97 Oximetry Medical Decision Making - Medical Decision Making 58yo female presented for diarrhea concern for C. difficile. C. difficile testing positive. Patient is having large amounts of diarrhea greater than 7 episodes a day. Patient has significant pain. CT revealed no perforation or other findings consistent with acute abdomen however there are findings consistent with developing C. difficile infection. Patient has chronic leukopenia. Laboratory abnormalities appear consistent patient's baseline mild increase in alkaline phosphatase from baseline. Patient is no localized right upper quadrant tenderness. Patient has no current fever. Heart rate within normal limits she is not appear toxic however does have dry mucous membranes concerning for dehydration. I discussed the case with any provider Dr. Taylor at this time we feel patient should be admitted for oral antibiotics, and IV hydration. Patient is also immune compromised given chronic leukopenia. Patient is agreeable to admission to hospital today. Give oral vancomycin, 125mg PO q6h scheduled. I spoke with admitted provider Dr. Mays who recommend transfer to [facility] for recurrent C.difficile infections >7. Failure on dificed for fecal transplant. Patient is agreeable with transfer. Dr. Sheppard infectious disease physician accepted patient transfer as direct admission. - Lab Data Result diagrams: 02/06/19 11:25 02/06/19 11:25 Lab Results 02/06/19 02/06/19 02/06/19 Range/Units 11:25 11:25 11:25 WBC 1.0 L* (3.8-10.6) k/uL RBC 3.26 L (3.80-5.40) m/uL Hgb 11.0 L (11.4-16.0) gm/dL Hct 32.6 L (34.0-46.0) % MCV 100.3 H (80.0-100.0) fL MCH 33.8 (25.0-35.0) pg MCHC 33.7 (31.0-37.0) g/dL RDW 14.5 (11.5-15.5) % Plt Count 65 L (150-450) k/uL Neutrophils % (Manual) 34 % Band Neutrophils % 3 % Lymphocytes % (Manual) 30 % Monocytes % (Manual) 24 % Eosinophils % (Manual) 8 % Basophils % (Manual) 1 % Neutrophils # (Manual) 0.30 L* (1.3-7.7) k/uL Lymphocytes # (Manual) 0.30 L (1.0-4.8) k/uL Monocytes # (Manual) 0.24 (0-1.0) k/uL Eosinophils # (Manual) 0.08 (0-0.7) k/uL Basophils # (Manual) 0.01 (0-0.2) k/uL Nucleated RBCs 0 (0-0) /100 WBC Manual Slide Review Performed Poikilocytosis (manual Present Macrocytosis Slight Sodium 138 (137-145) mmol/L Potassium 3.0 L (3.5-5.1) mmol/L Chloride 109 H (98-107) mmol/L Carbon Dioxide 25 (22-30) mmol/L Anion Gap 4 mmol/L BUN 15 (7-17) mg/dL Creatinine 0.62 (0.52-1.04) mg/dL Est GFR (CKD-EPI)AfAm >90 (>60 ml/min/1.73 sqM) Est GFR (CKD-EPI)NonAf >90 (>60 ml/min/1.73 sqM) Glucose 174 H (74-99) mg/dL Plasma Lactic Acid Shaka 1.4 (0.7-2.0) mmol/L Calcium 8.3 L (8.4-10.2) mg/dL Total Bilirubin 2.2 H (0.2-1.3) mg/dL AST 45 H (14-36) U/L ALT 57 H (9-52) U/L Alkaline Phosphatase 225 H (38-126) U/L Total Protein 4.9 L (6.3-8.2) g/dL Albumin 2.7 L (3.5-5.0) g/dL Amylase <30 L (30-110) U/L Lipase 29 (23-300) U/L Urine Color Urine Appearance (Clear) Urine pH (5.0-8.0) Ur Specific [place] (1.001-1.035) Urine Protein (Negative) Urine Glucose (UA) (Negative) Urine Ketones (Negative) Urine Blood (Negative) Urine Nitrite (Negative) Urine Bilirubin (Negative) Urine Urobilinogen (<2.0) mg/dL Ur Leukocyte Esterase (Negative) Urine RBC (0-5) /hpf Urine WBC (0-5) /hpf Ur Squamous Epith Cells (0-4) /hpf Urine Mucus (None) /hpf C. difficile (EIA) Intrp (Negative) 02/06/19 02/06/19 Range/Units 11:25 11:35 WBC (3.8-10.6) k/uL RBC (3.80-5.40) m/uL Hgb (11.4-16.0) gm/dL Hct (34.0-46.0) % MCV (80.0-100.0) fL MCH (25.0-35.0) pg MCHC (31.0-37.0) g/dL RDW (11.5-15.5) % Plt Count (150-450) k/uL Neutrophils % (Manual) % Band Neutrophils % % Lymphocytes % (Manual) % Monocytes % (Manual) % Eosinophils % (Manual) % Basophils % (Manual) % Neutrophils # (Manual) (1.3-7.7) k/uL Lymphocytes # (Manual) (1.0-4.8) k/uL Monocytes # (Manual) (0-1.0) k/uL Eosinophils # (Manual) (0-0.7) k/uL Basophils # (Manual) (0-0.2) k/uL Nucleated RBCs (0-0) /100 WBC Manual Slide Review Poikilocytosis (manual Macrocytosis Sodium (137-145) mmol/L Potassium (3.5-5.1) mmol/L Chloride (98-107) mmol/L Carbon Dioxide (22-30) mmol/L Anion Gap mmol/L BUN (7-17) mg/dL Creatinine (0.52-1.04) mg/dL Est GFR (CKD-EPI)AfAm (>60 ml/min/1.73 sqM) Est GFR (CKD-EPI)NonAf (>60 ml/min/1.73 sqM) Glucose (74-99) mg/dL Plasma Lactic Acid Shaka (0.7-2.0) mmol/L Calcium (8.4-10.2) mg/dL Total Bilirubin (0.2-1.3) mg/dL AST (14-36) U/L ALT (9-52) U/L Alkaline Phosphatase (38-126) U/L Total Protein (6.3-8.2) g/dL Albumin (3.5-5.0) g/dL Amylase (30-110) U/L Lipase (23-300) U/L Urine Color Yellow Urine Appearance Cloudy H (Clear) Urine pH 6.0 (5.0-8.0) Ur Specific [place] 1.015 (1.001-1.035) Urine Protein Trace H (Negative) Urine Glucose (UA) Negative (Negative) Urine Ketones Negative (Negative) Urine Blood Trace H (Negative) Urine Nitrite Negative (Negative) Urine Bilirubin Negative (Negative) Urine Urobilinogen <2.0 (<2.0) mg/dL Ur Leukocyte Esterase Moderate H (Negative) Urine RBC 6 H (0-5) /hpf Urine WBC 23 H (0-5) /hpf Ur Squamous Epith Cells 1 (0-4) /hpf Urine Mucus Occasional H (None) /hpf C. difficile (EIA) Intrp Positive A (Negative) Disposition Clinical Impression: Chronic leukopenia, Clostridioides difficile infection, Diarrhea, Dehydration, Abdominal pain Disposition: OTHER INSTITUTION NOT DEFINED Condition: Stable Is patient prescribed a controlled substance at d/c from ED?: No Referrals: Obdulia Jasso MD [Primary Care Provider] - 1-2 days Time of Disposition: 13:25 - Out of Hospital Transfer - Req. Specs Out of Hospital Transfer - Requested Specifics: Other Non-Acute (Dr. Sheppard; direct admission)
[2019-02-06 11:46] LABS: HCT 32.6 % (34.0-46.0); MCH 33.8 pg (25.0-35.0); MCHC 33.7 g/dL (31.0-37.0); MCV 100.3 fL (80.0-100.0); Macrocytosis Slight; Mean Platelet Volume 9.1; RBC 3.26 m/uL (3.80-5.40); RDW 14.5 % (11.5-15.5)
[2019-02-06 11:51] LABS: Appearance,Urine Cloudy (Clear); Bilirubin,Urine Negative (Negative); Blood,Urine Trace (Negative); Color,Urine Yellow; Glucose,Urine (UA) Negative (Negative); Ketones,Urine Negative (Negative); Leukocyte Esterase,Urine Moderate (Negative); Mucus,Urine Occasional /hpf; Nitrite,Urine Negative (Negative); Protein,Urine Trace (Negative); RBC,Urine 6 /hpf (0-5); Specific Gravity,Urine 1.015 (1.001-1.035); Squamous Epithelial Cell,Urine 1 /hpf (0-4); Urobilinogen,Urine <2.0 mg/dL (<2.0); WBC,Urine 23 /hpf (0-5)
[2019-02-06 11:53] LABS: African American GFR (CKD) >90 (>60 ml/min/1.73 sqM); Albumin 2.7 g/dL (3.5-5.0); Anion Gap 4 mmol/L; Blood Urea Nitrogen 15 mg/dL (7-17); Calcium 8.3 mg/dL (8.4-10.2); Carbon Dioxide 25 mmol/L (22-30); Chloride 109 mmol/L (98-107); Glucose 174 mg/dL (74-99); Sodium 138 mmol/L (137-145); Total Protein 4.9 g/dL (6.3-8.2)
[2019-02-06 11:54] LABS: ALT 57 U/L (9-52); AST 45 U/L (14-36); Alkaline Phosphatase 225 U/L (38-126); Amylase <30 U/L (30-110); Total Bilirubin 2.2 mg/dL (0.2-1.3)
[2019-02-06] MEDS ORDERED: ONDANSETRON 4 MG/2 ML VIAL IVP STA (11:55)
[2019-02-06] MEDS ORDERED: MORPHINE SULFATE 4 MG/ML SYRINGE IVP STA (11:55)
[2019-02-06 11:56] LABS: Platelet Count 65 k/uL (150-450)
[2019-02-06 12:03] VITALS: RESP 18
[2019-02-06 12:08] LABS: Band Neutrophils % 3 %; Basophils # (M) 0.01 k/uL (0-0.2); Eosinophils # (M) 0.08 k/uL (0-0.7); Monocytes # (M) 0.24 k/uL (0-1.0); Neutrophils % (M) 34 %; Nucleated Red Blood Cells 0 /100 WBC (0-0); Poikilocytosis (M) Present; Total Cells Counted 100
[2019-02-06] MEDS ORDERED: VANCOMYCIN ORAL SOLUTION 250 MG/5 ML BOTTLE PO SCH (13:00)
[2019-02-06] MEDS ORDERED: CHERRY FLAVOR 60 ML BOTTLE PO SCH (13:00)
--- NOTE | 2019-02-06 13:06 | CT ---
EXAMINATION TYPE: CT abdomen pelvis w con DATE OF EXAM: 02/06/2019 COMPARISON: 11/17/2018 INDICATION: C diff, abdominal pain. DLP: 1951.3 mGycm, Automated exposure control for dose reduction was used. CONTRAST: 100 mL of Isovue 300. Study performed without Oral Contrast TECHNIQUE: Axial images were obtained from above the diaphragm to the pubic rami in the axial plane a t 5 mm thick sections. Reconstructed images are reviewed on the computer in the coronal plane. FINDINGS: Peripherally calcified masses in the mid mesentery anterior to the third portion of the duo denum of uncertain etiology. However, this is stable from comparison. There may be some minimal infla mmatory changes adjacent. Limited CT sections are obtained the lung bases. The lung bases are clear. CT ABDOMEN: Liver: Normal Spleen: Splenomegaly is present. Pancreas: Normal Adrenal glands: The adrenal glands are normal. Gallbladder: Normal Kidneys: No masses are evident. No hydronephrosis is present. No cysts are present. Delayed images were obtained through the kidneys, which remain unremarkable. Aorta: Normal Inferior vena cava: Normal. CT PELVIS: The descending colon and sigmoid colon have diffuse wall thickening. There are some inflammatory serrano ges adjacent. Significant diverticuli are not evident. Clinical correlation recommended for colitis. Findings are developing from comparison. This study is performed without oral contrast limiting bowel evaluation. Appendix: Small amount of free fluid may be adjacent to the cecum. Urinary bladder: Normal. Genitourinary structures: Uterus and ovaries are not identified. Osseous structures: No suspicious lytic or sclerotic lesions. IMPRESSIONS: 1. Developing colitis in the descending colon to the sigmoid colon into the proximal rectum. Finding s are not typical but can be compatible with C. difficile. Distended loops of colon with inflamed thi ckened haustral markings are not evident.
[2019-02-06] MEDS ORDERED: ONDANSETRON 4 MG/2 ML VIAL IVP PRN (13:22)
[2019-02-06] MEDS ORDERED: NALOXONE 0.4 MG/ML 1 ML VIAL IV PRN (13:22)
[2019-02-06] MEDS ORDERED: MORPHINE SULFATE 4 MG/ML SYRINGE IV PRN (13:22)
[2019-02-06] MEDS ORDERED: SODIUM CHLORIDE 0.9% 1,000 ML IV SCH (13:30)
[2019-02-06 14:48] VITALS: BP 123/67; PULSE 65; TEMP 98
== END 2019-02-06 15:14 | disposition other institution (70) ==
LOC: EC 10:26
DX: D72.819 Decreased white blood cell count, unspecified (principal); A04.71 Enterocolitis due to Clostridium difficile, recurrent; E86.0 Dehydration; E78.5 Hyperlipidemia, unspecified; G47.33 Obstructive sleep apnea (adult) (pediatric); Z99.89 Dependence on other enabling machines and devices; E11.9 Type 2 diabetes mellitus without complications; I10 Essential (primary) hypertension; Z85.89 Personal history of malignant neoplasm of other organs and systems; Z85.858 Personal history of malignant neoplasm of other endocrine glands; Z85.05 Personal history of malignant neoplasm of liver; Z92.21 Personal history of antineoplastic chemotherapy; Z86.718 Personal history of other venous thrombosis and embolism; Z90.49 Acquired absence of other specified parts of digestive tract; Z90.710 Acquired absence of both cervix and uterus; Z79.890 Hormone replacement therapy; Z79.84 Long term (current) use of oral hypoglycemic drugs; Z79.01 Long term (current) use of anticoagulants; Z79.899 Other long term (current) drug therapy; Z88.4 Allergy status to anesthetic agent; Z88.5 Allergy status to narcotic agent
CPT/HCPCS: 36415; 80053; 82150; 83605; 83690; 85025; 81001; 87324; 87045; 83630; 87046; 74177; 99285; 96374; 96375; 96376; 96361; J2270; J2405; Q9967

== ENCOUNTER → 2019-04-18 | Outpatient (CLI) | payer MEDICARE ==
--- NOTE | 2019-04-18 17:52 | ECHOF ---
Referral Reason:C82.13 follicular lymphoma MEASUREMENTS -------- HEIGHT: 165.1 cm WEIGHT: 110.2 kg BP: RVIDd: 4.1 cm (< 3.3) IVSd: 1.2 cm (0.6 - 1.1) LVIDd: 4.6 cm (3.9 - 5.3) LVPWd: 1.6 cm (0.6 - 1.1) IVSs: 1.5 cm LVIDs: 3.8 cm LVPWs: 1.6 cm LA Diam: 5.5 cm (2.7 - 3.8) LAESV Index (A-L): 42.65 ml/m Ao Diam: 3.3 cm (2.0 - 3.7) AV Cusp: 2.3 cm (1.5 - 2.6) LA Diam: 4.4 cm (2.7 - 3.8) MV EXCURSION: 16.659 mm (> 18.000) MV EF SLOPE: 54 mm/s (70 - 150) EPSS: 0.6 cm MV E Joni: 0.74 m/s MV DecT: 193 ms MV A Joni: 0.90 m/s MV E/A Ratio: 0.82 RAP: 5.00 mmHg RVSP: 18.36 mmHg FINDINGS -------- Sinus rhythm. This was a technically good study. The left ventricular size is normal. There is mild concentric left ventricular hypertrophy. Overa ll left ventricular systolic function is normal with, an EF between 55 - 60 %. The right ventricle is normal in size. The left atrium is moderately dilated. LA is moderately dilated 34-39 ml/m2 The right atrial size is normal. The aortic valve is trileaflet, and appears structurally normal. No aortic stenosis or regurgitation. Mild mitral annular calcification present. Mild mitral regurgitation is present. Mild tricuspid regurgitation present. Right ventricular systolic pressure is normal at < 35 mmHg. There is no evidence of pulmonary hypertension. There is no pulmonic regurgitation present. The aortic root size is normal. There is no pericardial effusion. CONCLUSIONS -------- 1. Sinus rhythm. 2. This was a technically good study. 3. The left ventricular size is normal. 4. There is mild concentric left ventricular hypertrophy. 5. Overall left ventricular systolic function is normal with, an EF between 55 - 60 %. 6. The right ventricle is normal in size. 7. The left atrium is moderately dilated. 8. LA is moderately dilated 34-39 ml/m2 9. The right atrial size is normal. 10. The aortic valve is trileaflet, and appears structurally normal. No aortic stenosis or regurgitat ion. 11. Mild mitral annular calcification present. 12. Mild mitral regurgitation is present. 13. Mild tricuspid regurgitation present. 14. Right ventricular systolic pressure is normal at < 35 mmHg. 15. There is no evidence of pulmonary hypertension. 16. There is no pulmonic regurgitation present. 17. The aortic root size is normal. 18. There is no pericardial effusion. CASH RECONCILIATION SPECIALIST: Irma Galan RDCS
== END | disposition home or self-care (01) ==
LOC: RADECHMAIN 12:52
PROVIDERS: ATTEND Internal Medicine Hematology & Oncology
DX: I08.1 Rheumatic disorders of both mitral and tricuspid valves (principal); C82.13 Follicular lymphoma grade II, intra-abdominal lymph nodes
CPT/HCPCS: 93306; 94060; 94726; 94729

== ENCOUNTER → 2019-04-23 | Outpatient (CLI) | payer MEDICARE ==
--- NOTE | 2019-04-23 15:14 | XR ---
EXAMINATION TYPE: XR chest 2V DATE OF EXAM: 04/23/2019 COMPARISON: 09/11/2018 HISTORY: Lymphoma. Preprocedural exam. TECHNIQUE: Frontal and lateral views of the chest are obtained. FINDINGS: There is no focal air space opacity, pleural effusion, or pneumothorax seen. Left-sided Me diport is unchanged in position. Partial visualization of a cervical fusion device. The cardiac silho uette size is upper limits of normal. The osseous structures are intact. Mild multilevel degenerati ve change of the spine. IMPRESSION: No acute cardiopulmonary process.
== END | disposition home or self-care (01) ==
LOC: RADXRMAIN 14:33
PROVIDERS: ATTEND Internal Medicine Hematology & Oncology
DX: C82.13 Follicular lymphoma grade II, intra-abdominal lymph nodes (principal); R19.7 Diarrhea, unspecified; D70.2 Other drug-induced agranulocytosis; K12.31 Oral mucositis (ulcerative) due to antineoplastic therapy
CPT/HCPCS: 71046

== ENCOUNTER → 2019-05-12 | Day surgery (SDC) | payer MEDICARE ==
[2019-05-09 14:43] VITALS: BMI 40.6
[~2019-05-12] MED LIST: DEXAMETHASONE SOD PHOSPHATE 10 MG/ML 1 ML VIAL IV ONE; HYDROcodone/APAP 10-325MG 1 EACH TAB PO ONE; IV FLUID CONTINUATION 750 ML IV ONE; KETOROLAC 30 MG/ML 1 ML VIAL IVP ONE; MIDAZOLAM 2 MG/2 ML VIAL IVP ONE; ONDANSETRON 4 MG/2 ML VIAL IVP ONE; PROPOFOL 10 MG/ML 20 ML VIAL IV ONE
[2019-05-12] MEDS: LACTATED RINGERS 1,000 ML IV SCH ×2 (11:00→11:10)
[2019-05-12 11:05] VITALS: TEMP 98.1
[2019-05-12 11:12] LABS: Glucose,Whole Blood 81 mg/dL (75-99)
[2019-05-12 11:42] LABS: African American GFR (CKD) >90 (>60 ml/min/1.73 sqM); Anion Gap 3 mmol/L; Blood Urea Nitrogen 12 mg/dL (7-17); Calcium 8.5 mg/dL (8.4-10.2); Carbon Dioxide 30 mmol/L (22-30); Chloride 111 mmol/L (98-107); Glucose 82 mg/dL (74-99); Non-African American GFR(CKD) >90 (>60 ml/min/1.73 sqM); Potassium 3.4 mmol/L (3.5-5.1); Sodium 144 mmol/L (137-145)
[2019-05-12 11:47] LABS: Basophils % (A) 1 %; Eosinophils # (A) 0.1 k/uL (0-0.7); Eosinophils % (A) 3 %; HCT 34.2 % (34.0-46.0); HGB 11.4 gm/dL (11.4-16.0); Lymphocytes # (A) 0.2 k/uL (1.0-4.8); Lymphocytes % (A) 11 %; MCH 32.7 pg (25.0-35.0); MCHC 33.3 g/dL (31.0-37.0); MCV 98.3 fL (80.0-100.0); Macrocytosis Slight; Mean Platelet Volume 8.3; Monocytes # (A) 0.2 k/uL (0-1.0); Monocytes % (A) 10 %; Neutrophils # (A) 1.2 k/uL (1.3-7.7); Neutrophils % (A) 72 %; Poikilocytosis Slight; RBC 3.48 m/uL (3.80-5.40); RDW 15.8 % (11.5-15.5); WBC 1.7 k/uL (3.8-10.6)
[2019-05-12 12:22] LABS: Platelet Count 62 k/uL (150-450)
--- NOTE | 2019-05-12 12:51 | P.PCN ---
Date of Procedure: 05/12/19 Preoperative Diagnosis: Pancytopenia, myelodysplasia, history of non-Hodgkin's lymphoma Postoperative Diagnosis: Same Procedure(s) Performed: Bone marrow aspiration and biopsy Anesthesia: MAC Surgeon: Gael Alvarez Ultrasonic Solderer #1: Stated None Estimated Blood Loss (ml): 1 Pathology: other Condition: stable Disposition: same day Indications for Procedure: Patient has a history of follicular lymphoma, status post treatment. She had persistent pancytopenia since. Repeat bone marrow as patient biopsy showed myelodysplasia. Current procedure for follow-up prior to planning for bone marrow transplant Operative Findings: Adequate sample Description of Procedure: The procedure was explained in detail to the patient in the office. She presented to the outpatient endoscopy suite for IV access and informed consent obtained. She was then placed in the left lateral decubitus position. Area over both posterior iliac crest was cleaned and prepped with chlorhexidine and sterile draping. IV sedation was then initiated. Local anesthesia was administered with lidocaine to the right posterior iliac crest. A Jamshidi needle was then inserted and bone marrow aspirate obtained. On initial pass, the biopsy specimen was not able to be obtained. Therefore another pass was made with a satisfactory biopsy specimen obtained. On withdrawal of the needle hemostasis was easily achieved. Blood loss was minimal and recovery from sedation was satisfactory. She appeared to have tolerated the procedure well without any obvious immediate complications.
[2019-05-12 13:37] LABS: Reticulocyte % 2.8 % (0.5-2.0)
[2019-05-12] MEDS: fentaNYL (PF) 50 MCG/ML 2 ML AMP IVP ONE ×2 (13:37→14:31)
[2019-05-12 14:54] VITALS: BP 178/82; PULSE 67; RESP 17
== END | disposition home or self-care (01) ==
LOC: OR 10:44
PROVIDERS: ATTEND Internal Medicine Hematology & Oncology
DX: D46.9 Myelodysplastic syndrome, unspecified (principal); D68.51 Activated protein C resistance; D69.6 Thrombocytopenia, unspecified; D70.2 Other drug-induced agranulocytosis; C82.13 Follicular lymphoma grade II, intra-abdominal lymph nodes; K12.31 Oral mucositis (ulcerative) due to antineoplastic therapy; I10 Essential (primary) hypertension; G47.33 Obstructive sleep apnea (adult) (pediatric); E78.5 Hyperlipidemia, unspecified; E11.9 Type 2 diabetes mellitus without complications; E66.9 Obesity, unspecified; E89.0 Postprocedural hypothyroidism; I82.409 Acute embolism and thrombosis of unspecified deep veins of unspecified lower extremity; Z79.01 Long term (current) use of anticoagulants; Z79.84 Long term (current) use of oral hypoglycemic drugs; Z79.890 Hormone replacement therapy; Z79.899 Other long term (current) drug therapy; Z92.21 Personal history of antineoplastic chemotherapy; Z90.49 Acquired absence of other specified parts of digestive tract; Z90.710 Acquired absence of both cervix and uterus; Z98.890 Other specified postprocedural states; Z88.6 Allergy status to analgesic agent; Z88.5 Allergy status to narcotic agent; Z90.89 Acquired absence of other organs; Z68.41 Body mass index [BMI] 40.0-44.9, adult; Z83.2 Family history of diseases of the blood and blood-forming organs and certain disorders involving the immune mechanism; Z82.49 Family history of ischemic heart disease and other diseases of the circulatory system; Z83.3 Family history of diabetes mellitus; Z82.3 Family history of stroke; Z80.42 Family history of malignant neoplasm of prostate; Z84.1 Family history of disorders of kidney and ureter
CPT/HCPCS: 80048; 85025; 85045; 38222; J2250; J1100; J2405; J3010; J1885; J2704